=== PATIENT | female | born 1945 | race Caucasian/White ===

== ENCOUNTER 2019-05-21 09:57 | Inpatient (IN) | payer MEDICAID, MEDICARE ==
[~2019-05-21] VITALS: Ht 162.6 cm; Wt 116.2 kg
[2019-05-21] VITALS (12 sets, daily range): BP systolic 142–178; BP diastolic 82–107
[~2019-05-21 09:57] MED LIST: AMLO10TA8 PO; Albuterol Sulfate NEB; CLON0.2T PO; CLON1TAB PO; CLON1TAB11 PO; DIGO125T79 PO; DILT300C23 PO; DULO20CA PO; DULO60CA6 PO; ERGO500027 PO; FLUT16SP NS; FURO-69 PO; FURO40TA4 PO; GLIM2TAB2 PO; Ipratropium/Albuterol Sulfate NEB; LISI-130 PO; METF10007 PO; METF500T16 PO; PRED-220 PO; SIMV20TA3 PO; SIMV40TA3 PO; WARF-31 PO; [UNRECOGNIZED DRUG - REMARK]; lisinopril
[2019-05-21] MEDS ORDERED: dilTIAZem IV PUSH 25 MG/5 ML VIAL IVP ONE (11:00)
[2019-05-21] MEDS ORDERED: FUROSEMIDE 100 MG/10 ML VIAL. IVP ONE (11:30)
[2019-05-21] MEDS ORDERED: CARV25TA PO (11:44)
[2019-05-21] MEDS ORDERED: BUPR150T8 PO (11:44)
[2019-05-21] MEDS ORDERED: INSU100C4 SQ (11:44)
[2019-05-21] MEDS ORDERED: ASPI-612 PO (11:44)
[2019-05-21 11:52] LABS: BASO # 0.1 x10^3/uL (0.0-0.2); BASO % 1 % (0-3); EOS # 0.1 x10^3/uL (0.0-0.7); EOS % 1 % (0-3); HEMATOCRIT 42.8 % (36.0-47.0); HEMOGLOBIN 14.4 g/dL (12.0-15.5); LYMPH # 1.2 x10^3/uL (1.0-4.8); LYMPH % 15 % (24-48); MEAN CORPUSCULAR HEMOGLOBIN 28 pg (25-35); MEAN CORPUSCULAR HGB CONC 34 g/dL (31-37); MEAN CORPUSCULAR VOLUME 82 fL (79-100); MONO # 0.6 x10^3/uL (0.0-1.1); MONO % 7 % (0-9); NEUT % 75 % (31-73); PLATELET COUNT 250 x10^3/uL (140-400); RED CELL DISTRIBUTION WIDTH 15.9 % (11.5-14.5)
--- NOTE | 2019-05-21 11:52 | RAD ---
EXAM: Chest, single view. HISTORY: Chest pain. COMPARISON: None. FINDINGS: A frontal view of the chest is obtained. There is no infiltrate, pleural effusion or pneumothorax. There is a prominent cardiac silhouette, a component of which is due to portable technique. IMPRESSION: No acute pulmonary finding. Electronically signed by: Jenn Bhandari MD (05/21/2019 11:49 AM) [facility]
[2019-05-21 11:57] LABS: CALCIUM 9.1 mg/dL (8.5-10.1); CREATININE 1.3 mg/dL (0.6-1.0); GFR 40.2; POTASSIUM 4.8 mmol/L (3.5-5.1)
[2019-05-21] MEDS: dilTIAZem INJ 125 MG in IV DEXTROSE 5% 100ML 100 ML IV PRN ×2 (11:58→22:37)
[2019-05-21] MEDS ORDERED: ALBUTEROL SULFATE 2.5 MG/3 ML NEBU. NEB PRN (12:00)
[2019-05-21 12:03] LABS: ALBUMIN 3.4 g/dL (3.4-5.0); ALBUMIN/GLOBULIN RATIO 0.9 (1.0-1.7); TOTAL BILIRUBIN 0.9 mg/dL (0.2-1.0)
[2019-05-21 12:09] LABS: DIG < 0.2 ng/mL (0.9-2.0)
[2019-05-21] MEDS: IPRATRPIUM/ALBUTEROL 0.5/2.5MG 3 ML NEBU. NEB SCH ×3 (12:12→19:33)
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
[2019-05-21 12:35] LABS: PROTHROMBIN TIME PATIENT 14.4 SEC (11.7-14.0)
[2019-05-21 12:44] LABS: MAGNESIUM 1.5 mg/dL (1.8-2.4)
[2019-05-21 12:45] LABS: CHOLESTEROL/HDL RATIO 5.9
[2019-05-21] MEDS ORDERED: HEPARIN for IV BOLUS 10,000 UNIT/10 ML VIAL. IV PRN (13:00)
[2019-05-21] MEDS ORDERED: DEXTROSE 50% 25 GM / 50ML DISP.SYRIN. IV PRN (13:00)
[2019-05-21] MEDS ORDERED: APIXABAN 5 MG TABLET. PO SCH (13:00)
[2019-05-21] MEDS ORDERED: IV DEXTROSE 5% 250 ML BAG. IV PRN (13:00)
[2019-05-21] MEDS: INSULIN LISPRO 300 UNITS/3 ML INSULN.PEN. SQ SCH ×4 (13:47→18:19)
[2019-05-21] MEDS: HEPARIN 25,000UTS/500ML PREMIX 500 ML IV PRN (13:51)
[2019-05-21] MEDS ORDERED: MAGNESIUM SULFATE 2GM 50 ML IV ONE (15:00)
[2019-05-21] MEDS ORDERED: WARFARIN 5 MG TABLET. PO SCH (16:00)
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
[2019-05-21] MEDS: metFORMIN 500 MG TABLET PO SCH (18:16)
[2019-05-21] MEDS: CARVEDILOL 12.5 MG TABLET. PO SCH (18:16)
[2019-05-21] MEDS ORDERED: DIGOXIN 125 MCG TABLET. PO SCH (18:30)
[2019-05-21] MEDS ORDERED: NON FORMULARY ITEM ([Ipratropium/Albuterol Sulfate] 3 ML) NEB SCH (20:00)
[2019-05-21] MEDS: ATORVASTATIN CALCIUM 20 MG TABLET PO SCH (20:58)
[2019-05-21] MEDS: cloNIDine HCL 0.2 MG TABLET PO SCH (20:59)
[2019-05-21] MEDS: INSULIN GLARGINE 300 UNITS/3 ML INSULN.PEN. SQ SCH (21:03)
[2019-05-21] MEDS: HEPARIN for IV BOLUS 10,000 UNIT/10 ML VIAL. IV PRN (22:34)
[2019-05-22] VITALS (16 sets, daily range): BP systolic 104–166; BP diastolic 59–102
[2019-05-22 00:08] LABS: HEMOGLOBIN A1C 9.8 % (4.8-5.6)
[2019-05-22] MEDS: IPRATRPIUM/ALBUTEROL 0.5/2.5MG 3 ML NEBU. NEB SCH ×4 (07:30→20:15)
[2019-05-22] MEDS: INSULIN LISPRO 300 UNITS/3 ML INSULN.PEN. SQ SCH ×6 (08:00→17:00)
--- NOTE | 2019-05-22 08:29 | CARD ---
MR#: [id number] Date of Study: 05/21/2019 Ordering Physician: IVETTE COREA, Referring Physician: Nicole LONDON: Eileen Mehta APPROVED REPORT EXAM: Two-dimensional and M-mode echocardiogram with Doppler and color Doppler. Other Information Quality : FairHR: 102bpm INDICATION Atrial Fibrillation RISK FACTORS Hypertension Hyperlipidemia Diabetes 2D DIMENSIONS RVDd3.0 (2.9-3.5cm)Left Atrium(2D)4.1 (1.6-4.0cm) IVSd1.4 (0.7-1.1cm)Aortic Root(2D)3.4 (2.0-3.7cm) LVDd5.4 (3.9-5.9cm)LVOT Diameter1.8 (1.8-2.4cm) PWd1.4 (0.7-1.1cm)LVDs3.2 (2.5-4.0cm) FS (%) 40.0 %SV97.5 ml LVEF(%)70.1 (>50%) Aortic Valve AoV Peak Gary.157.7cm/sAoV VTI17.3cm AO Peak GR.9.9mmHgLVOT VTI 14.05cm AO Mean GR.4mmHgAI P 1/2 [id number] TDI Lateral E' P. V9.46cm/sMedial E' P. V8.50cm/s Tricuspid Valve TR P. Flvmzazv656dp/sRAP [id number] TR Peak Gr.98lyEgLBUH36lqXn Pulmonary Vein S1 Porkybla69.3cm/sS2 Embhqltr48.63cm/s D2 Twtenfqe87.6cm/sPVa [id number] LEFT VENTRICLE The left ventricle is normal size. There is moderate concentric left ventricular hypertrophy. The lef t ventricular systolic function is normal. The Ejection Fraction is 55-60%. There is normal LV segmen elizabeth wall motion. Diastology indeterminate due to atrial fibrillation. RIGHT VENTRICLE The right ventricle is normal size. There is normal right ventricular wall thickness. The right ventr icular systolic function is normal. ATRIA The left atrium is mildly dilated. The right atrium is borderline dilated. The interatrial septum is intact with no evidence for an atrial septal defect or patent foramen ovale as noted on 2-D or Dopple r imaging. AORTIC VALVE The aortic valve is normal in structure and function. Doppler and Color Flow revealed trace aortic re gurgitation. There is no significant aortic valvular stenosis. MITRAL VALVE The mitral valve is normal in structure and function. There is no evidence of mitral valve prolapse. There is no mitral valve stenosis. Doppler and Color-flow revealed trace mitral regurgitation. TRICUSPID VALVE The tricuspid valve is normal in structure and function. Doppler and Color Flow revealed trace tricus pid regurgitation with an estimated PAP of 37 mmHg. There is no tricuspid valve stenosis. PULMONIC VALVE The pulmonic valve is not well visualized. Doppler and Color Flow revealed no pulmonic valvular regur gitation. GREAT VESSELS The aortic root is normal in size. The IVC is normal in size and collapses >50% with inspiration. PERICARDIAL EFFUSION There is no evidence of significant pericardial effusion. Critical Notification Critical Value: No <Conclusion> The left ventricular systolic function is normal. The Ejection Fraction is 55-60%. There is normal LV segmental wall motion. Trace mitral regurgitation. Trace tricuspid regurgitation with an estimated PAP of 37 mmHg. There is no evidence of significant pericardial effusion. Signed by : Dominick Biggs, Electronically Approved : 05/22/2019 08:29:31
[2019-05-22] MEDS: cloNIDine HCL 0.2 MG TABLET PO SCH (09:00)
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
[2019-05-22] MEDS: dilTIAZem INJ 125 MG in IV DEXTROSE 5% 100ML 100 ML IV PRN (10:18)
[2019-05-22] MEDS: HEPARIN 25,000UTS/500ML PREMIX 500 ML IV PRN (10:19)
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
[2019-05-22 11:49] LABS: PROTHROMBIN TIME PATIENT 15.1 SEC (11.7-14.0)
[2019-05-22 11:50] LABS: UNFRACTIONATED HEPARIN TESTING 0.36 IU/mL (0.30-0.70)
[2019-05-22] MEDS: FUROSEMIDE 40 MG TABLET. PO SCH (11:51)
[2019-05-22] MEDS: CARVEDILOL 12.5 MG TABLET. PO SCH (11:52)
[2019-05-22] MEDS: metFORMIN 500 MG TABLET PO SCH ×2 (11:52→18:05)
[2019-05-22] MEDS: ASPIRIN ENTERIC COATED 81 MG TABLET.DR. PO SCH (11:52)
[2019-05-22] MEDS: buPROPion SR 150 MG TABLET.SA PO SCH (11:52)
[2019-05-22] MEDS: FLUTICASONE 50MCG/NASAL SPRAY 16GM BOTTLE. NS SCH (11:53)
--- NOTE | 2019-05-22 13:38 | PDOC ---
PROGRESS NOTES Subjective She denies chest pain, tolerating medication changes, HR now controlled, on Heparin IV as INR subtherapeutic Objective Afebrile General: A&O Heart: afib per monitor, rate 60s Lungs: diminished but CTA Abd: obese, soft, normal bowel sounds Ext: no C/C/E Mg++ low INR 1.2 Vital Signs Vital Signs Date Time Temp Pulse Resp B/P (MAP) Pulse Ox O2 Delivery O2 Flow Rate FiO2 05/22/19 11:53 90 133/82 05/22/19 11:30 97 Room Air 05/22/19 11:00 98.4 16 98.4 I & O Intake and Output 05/22/19 06:59 Intake Total 600 ml Output Total 950 ml Balance -350 ml Intake Oral 600 ml Output Urine Total 950 ml Assessment and Plan Afib/RVR - admit for rate control, no CHFor ACS - cardiology consulted, resume warfarin, bridge with Heparin uncontrolled type 2 DM - out of meds - resume plus SSI Asthma/COPD, no evidence of acute exacerbation non compliance due to social issues - SS to see, needs assisted living hypomagnesemia - replace Evelin RUIZ MD May 22, 2019 13:38
[2019-05-22] MEDS ORDERED: MAGNESIUM SULFATE 2GM 50 ML IV ONE (14:00)
[2019-05-22] MEDS ORDERED: WARFARIN 5 MG TABLET. PO SCH (16:00)
[2019-05-22] MEDS: METOPROLOL TART IMMED RELEASE 50 MG TABLET. PO SCH (21:03)
[2019-05-22] MEDS: ATORVASTATIN CALCIUM 20 MG TABLET PO SCH (21:04)
[2019-05-22] MEDS: INSULIN GLARGINE 300 UNITS/3 ML INSULN.PEN. SQ SCH (21:08)
[2019-05-23 03:35] VITALS: BP 127/85
[2019-05-23 06:24] LABS: PROTHROMBIN TIME PATIENT 15.2 SEC (11.7-14.0)
[2019-05-23 06:25] LABS: UNFRACTIONATED HEPARIN TESTING 0.18 IU/mL (0.30-0.70)
[2019-05-23 07:00] VITALS: BP 118/74
[2019-05-23] MEDS: HEPARIN for IV BOLUS 10,000 UNIT/10 ML VIAL. IV PRN (07:18)
[2019-05-23] MEDS: INSULIN LISPRO 300 UNITS/3 ML INSULN.PEN. SQ SCH ×6 (08:00→17:00)
[2019-05-23] MEDS: IPRATRPIUM/ALBUTEROL 0.5/2.5MG 3 ML NEBU. NEB SCH ×4 (08:07→19:34)
--- NOTE | 2019-05-23 08:16 | PDOC ---
PROGRESS NOTES Subjective No chest pain, room was too cold to sleep well last night and now she feels hot, INR 1.2 on warfarin 10 mg and heparin drip Objective Afebrile General: doing breathing tx Heart: Rate controlled, afib on monitor Lungs: CTA Abd: obese, soft Ext: no cyanosis Vital Signs Vital Signs Date Time Temp Pulse Resp B/P (MAP) Pulse Ox O2 Delivery O2 Flow Rate FiO2 05/23/19 08:08 98 Room Air 05/23/19 07:00 97.9 89 20 118/74 (89) 97.9 I & O Intake and Output0 05/23/19 06:59 Intake Total 300 ml Output Total 1400 ml Balance -1100 ml Intake Oral 300 ml Output Urine Total 1400 ml # Voids 1 Assessment and Plan Problems Medical Problems: (1) Atrial fibrillation with rapid ventricular response Status: Acute (2) Chronic systolic CHF (congestive heart failure) Status: Chronic (3) HLD (hyperlipidemia) Status: Chronic (4) Hypomagnesemia Status: Acute (5) Uncontrolled diabetes mellitus Status: Chronic Afib/RVR - rate controlled on current meds, no CHFor ACS - cardiology consulted, resumed warfarin, bridging with Heparin until therapeutic uncontrolled type 2 DM - out of meds - resume plus SSI Asthma/COPD, no evidence of acute exacerbation non compliance due to social issues - SS to see, needs assisted living hypomagnesemia - replace Evelin RUIZ MD May 23, 2019 08:16
[2019-05-23] MEDS: HEPARIN 25,000UTS/500ML PREMIX 500 ML IV PRN (08:19)
[2019-05-23] MEDS: ASPIRIN ENTERIC COATED 81 MG TABLET.DR. PO SCH (08:35)
[2019-05-23] MEDS: buPROPion SR 150 MG TABLET.SA PO SCH (08:35)
[2019-05-23] MEDS: metFORMIN 500 MG TABLET PO SCH ×2 (08:36→17:21)
[2019-05-23] MEDS: LISINOPRIL 10 MG TABLET PO SCH (08:36)
[2019-05-23] MEDS: METOPROLOL TART IMMED RELEASE 50 MG TABLET. PO SCH ×2 (08:36→21:32)
[2019-05-23] MEDS: FUROSEMIDE 40 MG TABLET. PO SCH (08:38)
[2019-05-23] MEDS: FLUTICASONE 50MCG/NASAL SPRAY 16GM BOTTLE. NS SCH (08:38)
[2019-05-23] MEDS: ACETAMINOPHEN 325 MG TABLET. PO PRN (10:13)
[2019-05-23 10:59] VITALS: BP 102/72
--- NOTE | 2019-05-23 11:38 | NUR ---
SS following up with discharge planning. PT/OT recommended residential unit. SS met with pt and discussed residential unit and discharge planning. Pt agreeable to residential unit at requested [facility], ; fax [phone]. Pt reported that her family did received SS list of Medicaid Assisted Livings and are contacting. SS phoned and faxed referral to [facility]. SS will await acceptance decision and will proceed accordingly.
--- NOTE | 2019-05-23 14:49 | NUR ---
SS following up with discharge planning. SS received phone contact from pt's daughters stating that they were at [facility] and reported that they did not want pt to go to [facility] at discharge. Pt's daughters reported that pt will go to [place], ; fax [phone], at discharge and will then transition to assisted living. SS phoned and faxed referral to [facility] per family request. Pt's RN notified.
[2019-05-23 15:00] VITALS: BP 114/86
[2019-05-23] MEDS ORDERED: WARFARIN 4 MG TABLET. PO SCH (16:00)
[2019-05-23 19:55] VITALS: BP 114/79
[2019-05-23] MEDS: ATORVASTATIN CALCIUM 20 MG TABLET PO SCH (21:32)
[2019-05-23] MEDS: INSULIN GLARGINE 300 UNITS/3 ML INSULN.PEN. SQ SCH (21:35)
[2019-05-23 23:06] VITALS: BP 106/62
[2019-05-24 02:06] VITALS: BP 133/71
[2019-05-24] MEDS: HEPARIN 25,000UTS/500ML PREMIX 500 ML IV PRN ×2 (04:36→04:41)
[2019-05-24 07:00] VITALS: BP 120/57
[2019-05-24 07:09] LABS: PROTHROMBIN TIME PATIENT 19.6 SEC (11.7-14.0)
[2019-05-24] MEDS: INSULIN LISPRO 300 UNITS/3 ML INSULN.PEN. SQ SCH ×6 (07:44→17:24)
[2019-05-24] MEDS: IPRATRPIUM/ALBUTEROL 0.5/2.5MG 3 ML NEBU. NEB SCH ×4 (07:56→19:40)
[2019-05-24] MEDS: LISINOPRIL 10 MG TABLET PO SCH (08:24)
[2019-05-24] MEDS: metFORMIN 500 MG TABLET PO SCH ×2 (08:24→16:59)
[2019-05-24] MEDS: ASPIRIN ENTERIC COATED 81 MG TABLET.DR. PO SCH (08:24)
[2019-05-24] MEDS: buPROPion SR 150 MG TABLET.SA PO SCH (08:24)
[2019-05-24] MEDS: METOPROLOL TART IMMED RELEASE 50 MG TABLET. PO SCH ×2 (08:25→20:57)
[2019-05-24] MEDS: FUROSEMIDE 40 MG TABLET. PO SCH (08:25)
[2019-05-24] MEDS: FLUTICASONE 50MCG/NASAL SPRAY 16GM BOTTLE. NS SCH (08:25)
[2019-05-24 11:00] VITALS: BP 131/80
[2019-05-24] MEDS ORDERED: ACET325T9 PO (11:52)
[2019-05-24] MEDS ORDERED: WARF3TAB54 PO (11:52)
[2019-05-24] MEDS ORDERED: ATOR20TA58 PO (11:52)
[2019-05-24] MEDS ORDERED: LISI10TA2 PO (11:52)
[2019-05-24] MEDS ORDERED: METO50TA6 PO (11:52)
--- NOTE | 2019-05-24 11:55 | SNU/HH DC ---
DISCHARGE ORDERS DISCHARGE INFORMATION: DISCHARGE DATE: May 24, 2019 FINAL DIAGNOSIS Problems Medical Problems: (1) Atrial fibrillation with rapid ventricular response Status: Acute (2) Chronic systolic CHF (congestive heart failure) Status: Chronic (3) HLD (hyperlipidemia) Status: Chronic (4) Hypomagnesemia Status: Acute (5) Uncontrolled diabetes mellitus Status: Chronic CONDITION ON DISCHARGE: Stable CODE STATUS: Code Status: Full SENIOR LIVING: SNF STAY <30 DAYS: Yes POST DISCHARGE ORDERS: ACTIVITY ORDERS: Activity as tolerated WEIGHT BEARING STATUS: No restrictions DIET AFTER DISCHARGE: ADA CHECKS AFTER DISCHARGE: CHECKS AFTER DISCHARGE: Check blood press - daily, Check blood sugar, ac/hs, Check your Temp as needed, Weigh Yourself Daily FOLLOW-UP: PHYSICIAN FOLLOW-UP: 2 weeks TREATMENT/EQUIPMENT ORDERS: RESPIRATORY EQUIPMENT NEEDED: Nebulizer Physical Therapy For: Evalulation/Treatment Occupational Therapy For: Evaluation/Treatment DISCHARGE MEDICATIONS: Home Meds Active Scripts Atorvastatin Calcium (ATORVASTATIN CALCIUM) 20 Mg Tablet, 20 MG PO QHS for cholesterol for 30 Days, #30 TAB Prov:Evelin RUIZ MD 05/24/19 Metoprolol Tartrate (METOPROLOL TARTRATE) 50 Mg Tablet, 50 MG PO BID for heart rate for 30 Days, #60 TAB Prov:Evelin RUIZ MD 05/24/19 Lisinopril (LISINOPRIL) 10 Mg Tablet, 10 MG PO DAILY for heart/bp/kidneys for 30 Days, #30 TAB Prov:Evelin RUIZ MD 05/24/19 Acetaminophen (TYLENOL) 325 Mg Tablet, 650 MG PO PRN Q6HRS PRN for PAIN for 30 Days, #100 TAB Prov:Evelin RUIZ MD 05/24/19 Warfarin Sodium (COUMADIN) 3 Mg Tablet, 6 MG PO DAILY16 for afib for 30 Days, #60 TAB Prov:Evelin RUIZ MD 05/24/19 Diltiazem Hcl (DILTIAZEM 24HR CD) 300 Mg Cap.er.24h, 300 MG PO DAILY for 30 Days Prov:LINDA RG MD 10/13/15 Digoxin (LANOXIN) 125 Mcg Tablet, 125 MCG PO DAILY for 30 Days Prov:LINDA RG MD 10/13/15 [Albuterol Sulfate] 2.5 MG/3 ML NEBU No Conflict Check, 2.5 MG NEB PRN Q4HRS PRN for SHORTNESS OF BREATH Prov:Evelin RUIZ MD 06/25/15 [Ipratropium/Albuterol Sulfate] 3 ML NEBU No Conflict Check, 3 ML NEB RTQID Prov:Evelin RUIZ MD 06/25/15 Reported Medications Bupropion Hcl (WELLBUTRIN SR) 150 Mg Tablet.er, 150 MG PO DAILY for antidepresant, TAB.SR 05/21/19 Insulin Aspart (NOVOLOG) 100 Unit/1 Ml Cartridge, 15 UNIT SQ TID for glucose control, EACH 05/21/19 Aspirin (ASPIRIN EC) 81 Mg Tablet.dr, 1 TAB PO DAILY for circulations, #30 TAB 3 Refills 05/21/19 Fluticasone Propionate (FLUTICASONE PROPIONATE NASAL SPRAY) 16 Gm [place].susp, 2 SPRAY NS DAILY, #1 INHALER 11 Refills LAST DOSE GIVEN: DATE: 10-13-15 TIME: 9 am NEXT DOSE DUE: DATE: 10-14-15 TIME: 9 am 06/23/15 Furosemide (FUROSEMIDE) 40 Mg Tablet, 1 TAB PO DAILY, #30 TAB 5 Refills LAST DOSE GIVEN: DATE: 10-13-15 TIME: 9 am NEXT DOSE DUE: DATE: 10-14-15 TIME: 9 am 06/23/15 Ergocalciferol (Vitamin D2) (VITAMIN D2) 50,000 Unit Capsule, 1 CAP PO WEEKLY, #4 CAP 5 Refills 06/23/15 Metformin Hcl (METFORMIN HCL) 1,000 Mg Tablet, 1 TAB PO BID PRN for BLADDER SPASM, #60 TAB 5 Refills LAST DOSE GIVEN: DATE: 10-13-15 TIME: 9 am NEXT DOSE DUE: DATE: 10-14-15 TIME: 9 am 06/23/15 Discontinued Reported Medications Carvedilol (COREG) 25 Mg Tablet, 25 MG PO BIDWMEALS for CARDIAC, TAB 05/21/19 Clonidine Hcl (CLONIDINE HCL) 0.2 Mg Tablet, 1 TAB PO BID, #180 TAB 3 Refills LAST DOSE GIVEN: DATE: 10-13-15 TIME: 9 am NEXT DOSE DUE: DATE: TIME: 5 pm 06/23/15 Amlodipine Besylate (AMLODIPINE BESYLATE) 10 Mg Tablet, 10 MG PO DAILY, TAB 10/13/15 Duloxetine Hcl (CYMBALTA) 60 Mg Capsule.dr, 1 CAP PO DAILY, #90 CAP 3 Refills LAST DOSE GIVEN: DATE: 10-13-15 TIME: 9 am NEXT DOSE DUE: DATE: 10-14-15 TIME: 9 am 06/23/15 Simvastatin (SIMVASTATIN) 40 Mg Tablet, 40 MG PO DAILY for FOR CHOLESTEROL, #30 TAB 0 Refills LAST DOSE GIVEN: DATE: 10-12-15 TIME: 9 pm NEXT DOSE DUE: DATE: 10-13-15 TIME: 9 pm 06/23/15 Lisinopril (LISINOPRIL) 40 Mg Tablet, 1 TAB PO DAILY, #30 TAB 5 Refills LAST DOSE GIVEN: DATE: 10-13-15 TIME: 9 am NEXT DOSE DUE: DATE: 10-14-15 TIME: 9 am 06/23/15 Glimepiride (GLIMEPIRIDE) 2 Mg Tablet, 1 TAB PO DAILY, #30 TAB 5 Refills LAST DOSE GIVEN: DATE: 10-13-15 TIME: 9 am NEXT DOSE DUE: DATE: 10-14-15 TIME: 9 am 06/23/15 Discontinued Scripts Warfarin Sodium (WARFARIN SODIUM) 5 Mg Tablet, 1 TAB PO DAILY, #90 TAB 1 Refill Prov:LINDA RG MD 10/13/15 Evelin RUIZ MD May 24, 2019 11:55
--- NOTE | 2019-05-24 12:23 | NUR ---
SS following up with discharge planning. Augustina contacted SS and reported that pt could not be accepted because her Medicare Part A was not active. SS confirmed with case management and registration. SS contacted pt's daughter, Jeannie, , and discussed. Pt's daughter Jeannie requested that referrals be phoned and faxed to [facility], ; fax [phone], and [facility], ; fax [phone]. SS will await acceptance decision and insurance determination and will proceed accordingly with discharge planning.
[2019-05-24 15:00] VITALS: BP 133/81
--- NOTE | 2019-05-24 15:36 | NUR ---
SS following up with discharge planning. Pt accepted at [facility], ; fax [phone], pending insurance determination. SS will await insurance determination and will proceed accordingly. Pt's RN notified.
--- NOTE | 2019-05-24 16:38 | PDOC ---
PROGRESS NOTES Subjective therapy recommending SNU, waiting for placement, cardiac-wis she is stable on current meds, getting neb tx, sugars generally ok, starting to ambulate more, breathing improving, INR therapeutic enough to stop Heparin Objective Afebrile General: mildly dyspneic at rest Heart: irreg, rate normal Lungs: diminished, less coarse Abd: obese, soft Ext: no cyonosis Vital Signs Vital Signs Date Time Temp Pulse Resp B/P (MAP) Pulse Ox O2 Delivery O2 Flow Rate FiO2 05/24/19 15:51 Room Air 05/24/19 15:00 97.9 78 20 133/81 (98) 95 97.9 I & O Intake and Output 05/24/19 06:59 Intake Total 740 ml Output Total 2000 ml Balance -1260 ml Intake Oral 240 ml IV Total 500 ml Output Urine Total 2000 ml Assessment and Plan Afib/RVR - rate controlled on current meds, no CHFor ACS - cardiology consulted, resumed warfarin, therapeutic enough to stop Heparin uncontrolled type 2 DM - out of meds - resume plus SSI Asthma/COPD, no evidence of acute exacerbation, stable with meds non compliance due to social issues - SS to see, needs assisted living hypomagnesemia - replace debility from poorly treated chronic illness - SNU then Assisted living, continue therapy (1) Atrial fibrillation with rapid ventricular response Status: Acute (2) Chronic systolic CHF (congestive heart failure) Status: Chronic (3) HLD (hyperlipidemia) Status: Chronic (4) Hypomagnesemia Status: Acute (5) Uncontrolled diabetes mellitus Status: Chronic Evelin RUIZ MD May 24, 2019 16:38
[2019-05-24] MEDS: WARFARIN 3 MG TABLET. PO SCH (16:59)
[2019-05-24 19:05] VITALS: BP 148/87
[2019-05-24] MEDS: INSULIN GLARGINE 300 UNITS/3 ML INSULN.PEN. SQ SCH (20:57)
[2019-05-24] MEDS: ATORVASTATIN CALCIUM 20 MG TABLET PO SCH (20:57)
[2019-05-24] MEDS ORDERED: ONDANSETRON PF 4 MG/2 ML VIAL. IV PRN (22:00)
[2019-05-24 23:49] VITALS: BP 148/87
[2019-05-25 03:45] VITALS: BP 125/77
[2019-05-25 04:42] LABS: PROTHROMBIN TIME PATIENT 22.4 SEC (11.7-14.0)
[2019-05-25 04:50] LABS: ANION GAP 7 (6-14); BLOOD UREA NITROGEN 15 mg/dL (7-20); CALCIUM 8.8 mg/dL (8.5-10.1); CARBON DIOXIDE 30 mmol/L (21-32); CHLORIDE 103 mmol/L (98-107); CREATININE 1.2 mg/dL (0.6-1.0); GLUCOSE 119 mg/dL (70-99); POTASSIUM 3.9 mmol/L (3.5-5.1); SODIUM 140 mmol/L (136-145)
[2019-05-25 04:51] LABS: DIG < 0.2 ng/mL (0.9-2.0)
[2019-05-25 07:00] VITALS: BP 107/65
[2019-05-25] MEDS: IPRATRPIUM/ALBUTEROL 0.5/2.5MG 3 ML NEBU. NEB SCH ×4 (07:19→20:14)
[2019-05-25] MEDS: INSULIN LISPRO 300 UNITS/3 ML INSULN.PEN. SQ SCH ×6 (08:00→17:23)
[2019-05-25] MEDS: metFORMIN 500 MG TABLET PO SCH ×2 (08:38→16:45)
[2019-05-25] MEDS: METOPROLOL TART IMMED RELEASE 50 MG TABLET. PO SCH ×2 (08:39→20:50)
[2019-05-25] MEDS: ASPIRIN ENTERIC COATED 81 MG TABLET.DR. PO SCH (08:39)
[2019-05-25] MEDS: LISINOPRIL 10 MG TABLET PO SCH (08:39)
[2019-05-25] MEDS: buPROPion SR 150 MG TABLET.SA PO SCH (08:39)
[2019-05-25] MEDS: FUROSEMIDE 40 MG TABLET. PO SCH (08:40)
[2019-05-25] MEDS: FLUTICASONE 50MCG/NASAL SPRAY 16GM BOTTLE. NS SCH (09:00)
--- NOTE | 2019-05-25 09:03 | PDOC ---
SUBJECTIVE Subjective Pt doing well this morning. Waiting for SNF placement. OBJECTIVE Vital Signs Vital Signs Date Time Temp Pulse Resp B/P (MAP) Pulse Ox O2 Delivery O2 Flow Rate FiO2 05/25/19 08:40 75 107/65 05/25/19 08:40 75 107/65 05/25/19 07:20 93 Room Air 05/25/19 07:00 97.6 75 20 107/65 (79) 93 Room Air 97.6 05/25/19 03:45 97.9 79 20 125/77 (93) 95 Room Air 97.9 05/24/19 23:49 98.4 91 20 148/87 (107) 97 Room Air 98.4 05/24/19 20:58 81 148/87 05/24/19 20:00 Room Air 05/24/19 19:40 Room Air 05/24/19 19:05 98.0 81 20 148/87 (107) 95 Room Air 98.0 05/24/19 15:51 Room Air 05/24/19 15:00 97.9 78 20 133/81 (98) 95 Room Air 97.9 05/24/19 11:58 99 Room Air 05/24/19 11:00 98.0 78 20 131/80 (97) 97 Room Air 98.0 I & O Intake and Output 05/25/19 07:00 Intake Total 600 ml Output Total 1700 ml Balance -1100 ml Intake Oral 250 ml IV Total 350 ml Output Urine Total 1650 ml Emesis 50 ml PHYSICAL EXAM Physical Exam General: NAD, AOx3 HEENT: MMM, EOMI, no scleral icterus/injection Heart: RRR, no M/R/G Lungs: CTAB, regular breathing rate and effort Abd: obese, soft Ext: no cyonosis, on erythema/edema LE bilaterally Neuro: CN2-12 GI ASSESSMENT/PLAN Assessment/Plan Pt is a 74yo CF admitted for afib with RVR 1)Afib/RVR - Cardiology following. Pt currently sinus and regular rate. Cardiology following. Pt currently therapeutic on Warfarin. Awaiting SNF placement 2)uncontrolled type 2 DM - pt was out of meds, well controlled now with Metformi n 1000mg BID, Lispro 15U QAC and SSI 3)Asthma/COPD, no evidence of acute exacerbation, stable with meds 4)non compliance due to social issues - SS to see, needs assisted living 5)hypomagnesemia - replaced 6)debility from poorly treated chronic illness - SNU then Assisted living, continue therapy COMMENT Lab Laboratory Tests Test 05/24/19 11:45 05/24/19 16:46 05/24/19 20:44 05/25/19 04:00 Glucose (Fingerstick) 98 mg/dL (70-99) 107 mg/dL (70-99) 94 mg/dL (70-99) Prothrombin Time 22.4 SEC (11.7-14.0) Prothromb Time International Ratio 2.0 (0.8-1.1) Sodium Level 140 mmol/L (136-145) Potassium Level 3.9 mmol/L (3.5-5.1) Chloride Level 103 mmol/L (98-107) Carbon Dioxide Level 30 mmol/L (21-32) Anion Gap 7 (6-14) Blood Urea Nitrogen 15 mg/dL (7-20) Creatinine 1.2 mg/dL (0.6-1.0) Estimated GFR (Cockcroft-Gault) 44.0 Glucose Level 119 mg/dL (70-99) Calcium Level 8.8 mg/dL (8.5-10.1) Digoxin Level < 0.2 ng/mL (0.9-2.0) Digoxin Last Dose Date Digoxin Last Dose Time 0900 Test 05/25/19 07:20 Glucose (Fingerstick) 120 mg/dL (70-99) LINDA ORTIZ MD May 25, 2019 09:03
--- NOTE | 2019-05-25 10:10 | NUR ---
Pharmacy Warfarin Dosing Note S: Pharmacy consulted to assist with anticoagulation therapy O: MICHAELA COOPER is a 74 year old F with Atrial Fibrillation LABS: Last INR: 2.0 Last HGB: 14.4 Last HCT: 42.8 Last PLT: 250 Last dose of 6 mg given on 05/24/19 at 1659 Vitamin K given: N Ongoing Drug Interactions: ASA A:INR of 2.0 is within desired range. Target range for this patient is: 2 - 3 P: Warfarin dose: 6 mg Today at 1600 Bridge Therapy: Heparin drip D/C Next INR due 05/26/19 Pharmacy anticoagulation service will continue to follow. ALYSSA KIRKPATRICK [facility], 05/25/19 1010
[2019-05-25 11:05] VITALS: BP 135/71
[2019-05-25 15:00] VITALS: BP 81/66
[2019-05-25] MEDS: WARFARIN 3 MG TABLET. PO SCH (16:45)
[2019-05-25 19:05] VITALS: BP 132/89
[2019-05-25] MEDS: ATORVASTATIN CALCIUM 20 MG TABLET PO SCH (20:50)
[2019-05-25] MEDS: INSULIN GLARGINE 300 UNITS/3 ML INSULN.PEN. SQ SCH (22:02)
[2019-05-25 23:27] VITALS: BP 153/76
[2019-05-26 03:10] VITALS: BP 129/59
[2019-05-26 04:42] LABS: PROTHROMBIN TIME PATIENT 25.5 SEC (11.7-14.0)
[2019-05-26] MEDS: IPRATRPIUM/ALBUTEROL 0.5/2.5MG 3 ML NEBU. NEB SCH ×4 (06:58→19:49)
[2019-05-26 07:44] VITALS: BP 123/76
[2019-05-26] MEDS: INSULIN LISPRO 300 UNITS/3 ML INSULN.PEN. SQ SCH ×6 (08:00→17:00)
[2019-05-26] MEDS: LISINOPRIL 10 MG TABLET PO SCH (08:53)
[2019-05-26] MEDS: FUROSEMIDE 40 MG TABLET. PO SCH (08:54)
[2019-05-26] MEDS: ASPIRIN ENTERIC COATED 81 MG TABLET.DR. PO SCH (08:54)
[2019-05-26] MEDS: METOPROLOL TART IMMED RELEASE 50 MG TABLET. PO SCH ×2 (08:54→21:01)
[2019-05-26] MEDS: metFORMIN 500 MG TABLET PO SCH ×2 (08:54→17:29)
[2019-05-26] MEDS: buPROPion SR 150 MG TABLET.SA PO SCH (08:54)
[2019-05-26] MEDS: FLUTICASONE 50MCG/NASAL SPRAY 16GM BOTTLE. NS SCH (08:55)
--- NOTE | 2019-05-26 09:38 | NUR ---
Pharmacy Warfarin Dosing Note S: Pharmacy consulted to assist with anticoagulation therapy O: MICHAELA COOPER is a 74 year old F with Atrial Fibrillation LABS: Last INR: 2.3 Last HGB: 14.4 Last HCT: 42.8 Last PLT: 250 Last dose of 6 mg given on 05/25/19 at 1645 Vitamin K given: N Ongoing Drug Interactions: ASA A:INR of 2.3 is within desired range. Target range for this patient is: 2 - 3 P: Warfarin dose: 6 mg Today at 1600 Bridge Therapy: Heparin gtt D/C Next INR due 05/27/19 Pharmacy anticoagulation service will continue to follow. ALYSSA KIRKPATRICK [facility], 05/26/19 [id number]
--- NOTE | 2019-05-26 10:37 | PDOC ---
SUBJECTIVE Subjective Pt doing well this morning. No complaints OBJECTIVE Vital Signs Vital Signs Date Time Temp Pulse Resp B/P (MAP) Pulse Ox O2 Delivery O2 Flow Rate FiO2 05/26/19 08:58 80 123/76 05/26/19 08:58 81 123/76 05/26/19 07:44 97.5 82 18 123/76 (92) 94 Room Air 97.5 05/26/19 07:00 95 Room Air 05/26/19 03:10 98.7 84 18 129/59 (82) 96 Room Air 98.7 05/25/19 23:27 97.7 88 18 153/76 (101) 96 Room Air 97.7 05/25/19 20:50 93 132/89 05/25/19 20:14 Room Air 05/25/19 20:00 Room Air 05/25/19 19:05 98.2 93 17 132/89 (103) 97 Room Air 98.2 05/25/19 16:17 Room Air 05/25/19 15:00 97.4 79 19 81/66 (71) 93 Room Air 97.4 05/25/19 11:51 94 Room Air 05/25/19 11:29 Room Air 05/25/19 11:05 97.9 89 20 135/71 (92) 97 Room Air 97.9 I & O Intake and Output 05/26/19 06:59 Intake Total 560 ml Output Total 2500 ml Balance -1940 ml Intake Oral 560 ml Output Urine Total 2500 ml # Voids 1 PHYSICAL EXAM Physical Exam General: NAD, AOx3 HEENT: MMM, EOMI, no scleral icterus/injection Heart: RRR, no M/R/G Lungs: CTAB, regular breathing rate and effort Abd: obese, soft Ext: no cyonosis, on erythema/edema LE bilaterally Neuro: CN2-12 GI ASSESSMENT/PLAN Assessment/Plan Pt is a 74yo CF admitted for afib with RVR 1)Afib/RVR - Cardiology following. Pt currently sinus and regular rate. Cardiology following. Pt currently therapeutic on Warfarin. Awaiting SNF placement 2)uncontrolled type 2 DM - pt was out of meds, well controlled now with Me tformin 1000mg BID, Lispro 15U QAC and SSI 3)Asthma/COPD, no evidence of acute exacerbation, stable with meds 4)non compliance due to social issues - SS to see, needs assisted living 5)hypomagnesemia - replaced 6)debility from poorly treated chronic illness - SNU then Assisted living, continue therapy COMMENT Lab Laboratory Tests Test 05/25/19 11:43 05/25/19 16:27 05/25/19 21:18 05/26/19 04:00 Glucose (Fingerstick) 200 mg/dL (70-99) 77 mg/dL (70-99) 117 mg/dL (70-99) Prothrombin Time 25.5 SEC (11.7-14.0) Prothromb Time International Ratio 2.3 (0.8-1.1) Test 05/26/19 07:08 Glucose (Fingerstick) 145 mg/dL (70-99) LINDA ORTIZ MD May 26, 2019 10:37
[2019-05-26 11:04] VITALS: BP 145/79
[2019-05-26 14:59] VITALS: BP 142/87
[2019-05-26] MEDS ORDERED: WARFARIN 3 MG TABLET. PO ONE (16:00)
[2019-05-26] MEDS: WARFARIN 3 MG TABLET. PO SCH (17:31)
[2019-05-26 19:41] VITALS: BP 156/92
[2019-05-26] MEDS: ATORVASTATIN CALCIUM 20 MG TABLET PO SCH (21:01)
[2019-05-26] MEDS: INSULIN GLARGINE 300 UNITS/3 ML INSULN.PEN. SQ SCH (21:04)
[2019-05-26] MEDS: ACETAMINOPHEN 325 MG TABLET. PO PRN (21:32)
[2019-05-26 23:37] VITALS: BP 124/67
[2019-05-27 02:23] VITALS: BP 119/64
[2019-05-27 07:00] VITALS: BP 137/69
[2019-05-27] MEDS: IPRATRPIUM/ALBUTEROL 0.5/2.5MG 3 ML NEBU. NEB SCH ×4 (07:17→19:36)
[2019-05-27 07:19] LABS: PROTHROMBIN TIME PATIENT 25.5 SEC (11.7-14.0)
[2019-05-27] MEDS: INSULIN LISPRO 300 UNITS/3 ML INSULN.PEN. SQ SCH ×6 (08:00→17:11)
[2019-05-27] MEDS: ASPIRIN ENTERIC COATED 81 MG TABLET.DR. PO SCH (09:35)
[2019-05-27] MEDS: LISINOPRIL 10 MG TABLET PO SCH (09:36)
[2019-05-27] MEDS: METOPROLOL TART IMMED RELEASE 50 MG TABLET. PO SCH ×2 (09:36→21:29)
[2019-05-27] MEDS: FUROSEMIDE 40 MG TABLET. PO SCH (09:36)
[2019-05-27] MEDS: buPROPion SR 150 MG TABLET.SA PO SCH (09:36)
[2019-05-27] MEDS: FLUTICASONE 50MCG/NASAL SPRAY 16GM BOTTLE. NS SCH (09:36)
[2019-05-27] MEDS: metFORMIN 500 MG TABLET PO SCH ×2 (10:11→16:46)
[2019-05-27 11:00] VITALS: BP 129/76
--- NOTE | 2019-05-27 14:49 | NUR ---
Pharmacy Warfarin Dosing Note S:Pharmacy consulted to assist with anticoagulation therapy started with target INR: 2 -3 O:MICHAELA COOPER is a 74 year old F with Atrial Fibrillation LABS: Last INR: 2.3 Last HGB: 14.4 Last HCT: 42.8 Last PLT: 250 Last dose of 6 mg given on 05/26/19 at 1645 Previous Regimen: 5 mg/day (non-compliant x 1 month) Vitamin K given: N Drug Interaction Changes: Same Interacting Drug Ongoing Drug Interactions: ASA A:INR of 2.3 is within desired range. Target range for this patient is: 2 -3 P: Warfarin dose: 6 mg DAILY (HER HOME DOSE). Bridge Therapy: d/c'd Therapeutic Next INR due TOMORROW Pharmacy anticoagulation service will continue to follow. BRYAN ALICIA [facility], 05/27/19 [id number]
[2019-05-27 15:00] VITALS: BP 137/80
--- NOTE | 2019-05-27 16:03 | NUR ---
SS following up with discharge planning. [facility] Medicaid reviewing referral for [facility] and is conferring with [employer]. Insurance authorization still pending at this time. SS will await insurance determination and will proceed accordingly with discharge planning. Pt and pt's daughter notified.
--- NOTE | 2019-05-27 16:24 | PDOC ---
PROGRESS NOTES Subjective no changes, waiting on placement Objective Afebrile General: A&O Heart: irreg, rate controlled Lungs: clearer Abd: obese, soft Ext: no cyanosis Vital Signs Vital Signs Date Time Temp Pulse Resp B/P (MAP) Pulse Ox O2 Delivery O2 Flow Rate FiO2 05/27/19 15:38 97 Room Air 05/27/19 11:00 97.4 85 18 129/76 (93) 97.4 I & O Intake and Output 05/27/19 06:59 Intake Total 1240 ml Output Total 300 ml Balance 940 ml Intake Oral 1240 ml Output Urine Total 300 ml # Voids 5 Assessment and Plan Problems Medical Problems: (1) Atrial fibrillation with rapid ventricular response Status: Acute (2) Chronic systolic CHF (congestive heart failure) Status: Chronic (3) HLD (hyperlipidemia) Status: Chronic (4) Hypomagnesemia Status: Acute (5) Uncontrolled diabetes mellitus Status: Chronic Afib/RVR - rate controlled on current meds, no CHFor ACS - cardiology consulted, resumed warfarin, therapeutic enough to stop Heparin uncontrolled type 2 DM - out of meds - resume plus SSI Asthma/COPD, no evidence of acute exacerbation, stable with meds non compliance due to social issues - SS to see, needs assisted living hypomagnesemia - replace debility from poorly treated chronic illness - SNU or Assisted living with [facility] loz[facility], continue therapy Evelin RUIZ MD May 27, 2019 16:24
[2019-05-27] MEDS: WARFARIN 3 MG TABLET. PO SCH (16:45)
[2019-05-27 19:30] VITALS: BP 138/88
--- NOTE | 2019-05-27 19:30 | NUR ---
Pt sitting up in chair assessment completed vss poc explained pt denies pain or headache at this time will resume care and continue to monitor pt. Call light in each.
[2019-05-27] MEDS: ATORVASTATIN CALCIUM 20 MG TABLET PO SCH (21:28)
[2019-05-27] MEDS: INSULIN GLARGINE 300 UNITS/3 ML INSULN.PEN. SQ SCH (21:32)
[2019-05-27 22:51] VITALS: BP 147/79
[2019-05-28 03:36] VITALS: BP 138/78
[2019-05-28 07:00] VITALS: BP 142/77
[2019-05-28] MEDS: IPRATRPIUM/ALBUTEROL 0.5/2.5MG 3 ML NEBU. NEB SCH ×2 (07:19→11:08)
[2019-05-28 07:22] LABS: PROTHROMBIN TIME PATIENT 27.5 SEC (11.7-14.0)
[2019-05-28] MEDS: INSULIN LISPRO 300 UNITS/3 ML INSULN.PEN. SQ SCH ×4 (08:00→12:54)
[2019-05-28] MEDS ORDERED: ERGOCALCIFEROL (VITAMIN D2) 50,000 UNIT CAPSULE. PO SCH (09:00)
--- NOTE | 2019-05-28 09:04 | NUR ---
Pharmacy Warfarin Dosing Note S: Pharmacy consulted to assist with anticoagulation therapy O: MICHAELA COOPER is a 74 year old F with Atrial Fibrillation LABS: Last INR: 2.6 Last HGB: 14.4 Last HCT: 42.8 Last PLT: 250 Last dose of 6 mg given on 05/27/19 at 1646 Vitamin K given: N Ongoing Drug Interactions: ASA A:INR of 2.6 is within desired range. Target range for this patient is: 2 - 3. Due to INR stability on home regimen, will change to INR draws twice/week on Mon/. P: Continue warfarin 6 mg/day Bridge Therapy: Heparin Gtt D/C Next INR due 05/30/19 Pharmacy anticoagulation service will continue to follow. ALYSSA KIRKPATRICK [facility], 05/28/19 [id number]
[2019-05-28] MEDS: LISINOPRIL 10 MG TABLET PO SCH (09:43)
[2019-05-28] MEDS: FUROSEMIDE 40 MG TABLET. PO SCH (09:43)
[2019-05-28] MEDS: FLUTICASONE 50MCG/NASAL SPRAY 16GM BOTTLE. NS SCH (09:43)
[2019-05-28] MEDS: buPROPion SR 150 MG TABLET.SA PO SCH (09:43)
[2019-05-28] MEDS: metFORMIN 500 MG TABLET PO SCH (09:44)
[2019-05-28] MEDS: METOPROLOL TART IMMED RELEASE 50 MG TABLET. PO SCH (09:45)
[2019-05-28] MEDS: ASPIRIN ENTERIC COATED 81 MG TABLET.DR. PO SCH (09:45)
--- NOTE | 2019-05-28 10:39 | NUR ---
SS following up with discharge planning. [facility] Medicaid contacted [facility] this morning with determination and declined pt for inpatient rehabilitation services. SS contacted pt's daughter, Jeannie, , and discussed. Pt's daughter reported that she is submitting documentation needed to [facility], ; fax [phone], and is hoping to have pt placed at [facility] by the weekend. Pt's daughter reported that in the mean time pt can discharge to her home at [address] [address], with home healthcare services. Pt's daughter reported not having a preference of home healthcare. Referral and orders for home healthcare being faxed to [facility], ; fax [phone]. Pt's daughter reported that she will transport pt. Pt's RN notified.
[2019-05-28 11:00] VITALS: BP 146/81
--- NOTE | 2019-05-28 12:24 | SNU/HH DC ---
DISCHARGE WITH HOME HEALTH DISCHARGE INFORMATION: Discharge Date: May 28, 2019 Final Diagnosis: Problems Medical Problems: (1) Atrial fibrillation with rapid ventricular response Status: Acute (2) Chronic systolic CHF (congestive heart failure) Status: Chronic (3) HLD (hyperlipidemia) Status: Chronic (4) Hypomagnesemia Status: Acute (5) Uncontrolled diabetes mellitus Status: Chronic Condition on Discharge: Stable CODE STATUS: Code Status: Full HOME HEALTH: Face to Face: I certify this patient is under my care and that I, or a nurse practitioner or physician's assistant maintenance manager working with me, had a face to face encounter that meets the physician face to face encounter requirements with this patient on 05/28/19. RN For Eval/Treatment: No Physical Therapy For: Evalulation/Treatment Occupational Therapy For: Evaluation/Treatment Pt Meets Homebound Status: Unsteady balance w/ amb,, Fatigue w/ amb., Limited distance walking POST DISCHARGE ORDERS: Activity Instructions for Disc: Activity as tolerated Weight Bearing Status after Di: No restrictions DIET AFTER DISCHARGE: ADA CHECKS AFTER DISCHARGE: Checks after discharge: Check blood press - daily, Check blood sugar, ac/hs, Check your Temp as needed, Weigh Yourself Daily FOLLOW-UP: Follow up with: 2 weeks TREATMENT/EQUIPMENT ORDERS: Discharge Respiratory Equipmen: Nebulizer CERTIFICATION STATEMENT: Certification Statement: Certification Statement: Based on the above finding, I certify that this patient is confined to the home and needs intermittent longterm care, physical therapy and/or speech therapy, or continues to need occupational therapy.~ This patient is under my care, and I have initiated the establishment of the plan of care.~ This patient will be followed by myself or a community physician who will periodically review the plan of care. Home Meds Active Scripts Atorvastatin Calcium (ATORVASTATIN CALCIUM) 20 Mg Tablet, 20 MG PO QHS for cholesterol for 30 Days, #30 TAB Prov:Evelin RUIZ MD 05/24/19 Metoprolol Tartrate (METOPROLOL TARTRATE) 50 Mg Tablet, 50 MG PO BID for heart rate for 30 Days, #60 TAB Prov:Evelin RUIZ MD 05/24/19 Lisinopril (LISINOPRIL) 10 Mg Tablet, 10 MG PO DAILY for heart/bp/kidneys for 30 Days, #30 TAB Prov:Evelin RUIZ MD 05/24/19 Acetaminophen (TYLENOL) 325 Mg Tablet, 650 MG PO PRN Q6HRS PRN for PAIN for 30 Days, #100 TAB Prov:Evelin RUIZ MD 05/24/19 Warfarin Sodium (COUMADIN) 3 Mg Tablet, 6 MG PO DAILY16 for afib for 30 Days, #60 TAB Prov:Evelin RUIZ MD 05/24/19 Diltiazem Hcl (DILTIAZEM 24HR CD) 300 Mg Cap.er.24h, 300 MG PO DAILY for 30 Days Prov:LINDA RG MD 10/13/15 Digoxin (LANOXIN) 125 Mcg Tablet, 125 MCG PO DAILY for 30 Days Prov:LINDA RG MD 10/13/15 [Albuterol Sulfate] 2.5 MG/3 ML NEBU No Conflict Check, 2.5 MG NEB PRN Q4HRS PRN for SHORTNESS OF BREATH Prov:Evelin RUIZ MD 06/25/15 [Ipratropium/Albuterol Sulfate] 3 ML NEBU No Conflict Check, 3 ML NEB RTQID Prov:Evelin RUIZ MD 06/25/15 Reported Medications Bupropion Hcl (WELLBUTRIN SR) 150 Mg Tablet.er, 150 MG PO DAILY for antidepresant, TAB.SR 05/21/19 Insulin Aspart (NOVOLOG) 100 Unit/1 Ml Cartridge, 15 UNIT SQ TID for glucose control, EACH 05/21/19 Aspirin (ASPIRIN EC) 81 Mg Tablet.dr, 1 TAB PO DAILY for circulations, #30 TAB 3 Refills 05/21/19 Fluticasone Propionate (FLUTICASONE PROPIONATE NASAL SPRAY) 16 Gm [place].susp, 2 SPRAY NS DAILY, #1 INHALER 11 Refills LAST DOSE GIVEN: DATE: 10-13-15 TIME: 9 am NEXT DOSE DUE: DATE: 10-14-15 TIME: 9 am 06/23/15 Furosemide (FUROSEMIDE) 40 Mg Tablet, 1 TAB PO DAILY, #30 TAB 5 Refills LAST DOSE GIVEN: DATE: 10-13-15 TIME: 9 am NEXT DOSE DUE: DATE: 10-14-15 TIME: 9 am 06/23/15 Ergocalciferol (Vitamin D2) (VITAMIN D2) 50,000 Unit Capsule, 1 CAP PO WEEKLY, #4 CAP 5 Refills 06/23/15 Metformin Hcl (METFORMIN HCL) 1,000 Mg Tablet, 1 TAB PO BID PRN for BLADDER SPASM, #60 TAB 5 Refills LAST DOSE GIVEN: DATE: 10-13-15 TIME: 9 am NEXT DOSE DUE: DATE: 10-14-15 TIME: 9 am 06/23/15 Discontinued Reported Medications Carvedilol (COREG) 25 Mg Tablet, 25 MG PO BIDWMEALS for CARDIAC, TAB 05/21/19 Clonidine Hcl (CLONIDINE HCL) 0.2 Mg Tablet, 1 TAB PO BID, #180 TAB 3 Refills LAST DOSE GIVEN: DATE: 10-13-15 TIME: 9 am NEXT DOSE DUE: DATE: TIME: 5 pm 06/23/15 Amlodipine Besylate (AMLODIPINE BESYLATE) 10 Mg Tablet, 10 MG PO DAILY, TAB 10/13/15 Duloxetine Hcl (CYMBALTA) 60 Mg Capsule.dr, 1 CAP PO DAILY, #90 CAP 3 Refills LAST DOSE GIVEN: DATE: 10-13-15 TIME: 9 am NEXT DOSE DUE: DATE: 10-14-15 TIME: 9 am 06/23/15 Simvastatin (SIMVASTATIN) 40 Mg Tablet, 40 MG PO DAILY for FOR CHOLESTEROL, #30 TAB 0 Refills LAST DOSE GIVEN: DATE: 10-12-15 TIME: 9 pm NEXT DOSE DUE: DATE: 10-13-15 TIME: 9 pm 06/23/15 Lisinopril (LISINOPRIL) 40 Mg Tablet, 1 TAB PO DAILY, #30 TAB 5 Refills LAST DOSE GIVEN: DATE: 10-13-15 TIME: 9 am NEXT DOSE DUE: DATE: 10-14-15 TIME: 9 am 06/23/15 Glimepiride (GLIMEPIRIDE) 2 Mg Tablet, 1 TAB PO DAILY, #30 TAB 5 Refills LAST DOSE GIVEN: DATE: 10-13-15 TIME: 9 am NEXT DOSE DUE: DATE: 10-14-15 TIME: 9 am 06/23/15 Discontinued Scripts Warfarin Sodium (WARFARIN SODIUM) 5 Mg Tablet, 1 TAB PO DAILY, #90 TAB 1 Refill Prov:LINDA RG MD 10/13/15 Evelin RUIZ MD May 28, 2019 12:24
--- NOTE | 2019-05-28 13:16 | PDOC3 ---
Discharge Summary [facility] Date of Admission: May 21, 2019 Discharge Date: May 28, 2019 Admitting Diagnosis afib, rvr Final Diagnosis Problems Medical Problems: (1) Atrial fibrillation with rapid ventricular response Status: Acute (2) Chronic systolic CHF (congestive heart failure) Status: Chronic (3) HLD (hyperlipidemia) Status: Chronic (4) Hypomagnesemia Status: Acute (5) Uncontrolled diabetes mellitus Status: Chronic CONSULTS cardiology, pulmonary Procedures none Brief Hospital Course Ms. Yang is a 74 old who presented to the office with shortness of breath and found to be in Afib with a ventricular rate of 160 and admitted Afib/RVR - rate controlled with IV then oral meds, no CHF per CXR or ACS per enzymes - cardiology consulted, resumed warfarin after getting therapeutic enough to stop Heparin uncontrolled type 2 DM - out of meds - resumed home meds and controlled Asthma/COPD, no evidence of acute exacerbation, stable with meds, neb treatments non compliance due to social issues - saw, needs assisted living - going to [facility] on Thursday 05/31 hypomagnesemia - replaced debility from poorly treated chronic illness - PT/OT, Assisted living with prakash walker, continue therapy in the interim with therapy Patient History: Family history: Cardiovascular disease (situation) Family history: Diabetes mellitus (situation) Family history: Hypertension (situation) Disposition assisted living CONDITION AT DISCHARGE: Improved, Stable Diet ADA, lo sodium Scheduled Aspirin (Aspirin Ec), 1 TAB PO DAILY, (Reported) Atorvastatin Calcium (Atorvastatin Calcium), 20 MG PO QHS Bupropion Hcl (Wellbutrin Sr), 150 MG PO DAILY, (Reported) Digoxin (Lanoxin), 125 MCG PO DAILY Diltiazem Hcl (Diltiazem 24HR Cd), 300 MG PO DAILY Ergocalciferol (Vitamin D2) (Vitamin D2), 1 CAP PO WEEKLY, (Reported) Fluticasone Propionate (Fluticasone Propionate Nasal [place]), 2 SPRAY NS DAILY, (Reported) Furosemide (Furosemide), 1 TAB PO DAILY, (Reported) Insulin Aspart (Novolog), 15 UNIT SQ TID, (Reported) Lisinopril (Lisinopril), 10 MG PO DAILY Metoprolol Tartrate (Metoprolol Tartrate), 50 MG PO BID Warfarin Sodium (Coumadin), 6 MG PO DAILY16 [Ipratropium/Albuterol Sulfate], 3 ML NEB RTQID Scheduled PRN Acetaminophen (Tylenol), 650 MG PO PRN Q6HRS PRN for PAIN Metformin Hcl (Metformin Hcl), 1 TAB PO BID PRN for BLADDER SPASM, (Reported) [Albuterol Sulfate], 2.5 MG NEB PRN Q4HRS PRN for SHORTNESS OF BREATH Discontinued Medications Amlodipine Besylate (Amlodipine Besylate), 10 MG PO DAILY, (Reported) Carvedilol (Coreg), 25 MG PO BIDWMEALS, (Reported) Clonidine Hcl (Clonidine Hcl), 1 TAB PO BID, (Reported) Duloxetine Hcl (Cymbalta), 1 CAP PO DAILY, (Reported) Glimepiride (Glimepiride), 1 TAB PO DAILY, (Reported) Lisinopril (Lisinopril), 1 TAB PO DAILY, (Reported) Simvastatin (Simvastatin), 40 MG PO DAILY, (Reported) Warfarin Sodium (Warfarin Sodium), 1 TAB PO DAILY Follow Up 1-2 weeks Evelin RUIZ MD May 28, 2019 1:16 pm
[2019-05-28 15:00] VITALS: BP 141/84
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
--- NOTE | 2019-05-28 16:33 | NUR ---
Discharge Note: IRAM COOPER Discharge instructions and discharge home medications reviewed with Patient and a copy given. All questions have been answered and understanding verbalized. The following instructions and handouts were given: med list, Afib and insulin education, INR monitoring, and follow up appointment Discontinued lines and drains: IV discontinued, dressing clean, dry, intact. Patient discharged to home with home health via wheelchair
== END 2019-05-28 15:40 | disposition home health service (06) | DRG 309 ==
LOC: 2 NORTH 10:27 → EEVIPCON 10:27 → UNDODISIN 18:00
PROVIDERS: ADMIT Family Medicine; ATTEND Family Medicine
DX: I48.91 Unspecified atrial fibrillation (principal); I50.42 Chronic combined systolic (congestive) and diastolic (congestive) heart failure; E78.5 Hyperlipidemia, unspecified; F03.90 Unspecified dementia, unspecified severity, without behavioral disturbance, psychotic disturbance, mood disturbance, and anxiety; F32.9 Major depressive disorder, single episode, unspecified; J44.9 Chronic obstructive pulmonary disease, unspecified; I42.9 Cardiomyopathy, unspecified; I11.0 Hypertensive heart disease with heart failure; E83.42 Hypomagnesemia; E11.9 Type 2 diabetes mellitus without complications; Z83.3 Family history of diabetes mellitus; Z90.710 Acquired absence of both cervix and uterus; Z90.49 Acquired absence of other specified parts of digestive tract; Z98.51 Tubal ligation status; Z88.8 Allergy status to other drugs, medicaments and biological substances; Z91.19 Patient's noncompliance with other medical treatment and regimen; Z82.49 Family history of ischemic heart disease and other diseases of the circulatory system; Z79.84 Long term (current) use of oral hypoglycemic drugs; Z91.419 Personal history of unspecified adult abuse
CPT/HCPCS: 36415; 71045; 80048; 80053; 80061; 80162; 82962; 83036; 83735; 84443; 84484; 85025; 85520; 85610; 93306; 94640; 94760; J1644; J1815; J2405; J3475; J3490; J7620; 97110; 97116; 97530; 97535; G0378

== ENCOUNTER 2020-02-23 19:18 | Inpatient (IN) | payer MEDICAID, MEDICARE ==
[~2020-02-23] VITALS: Ht 162.6 cm; Wt 123.0 kg
[~2020-02-23 19:18] MED LIST changes: +ACET325T9 PO; +ASPI-612 PO; +ATOR20TA58 PO; +BUPR150T8 PO; +CARV25TA PO; +CEFD300C PO; -CLON1TAB11 PO; +CLONAZEPAM1 MG PO; +CYAN-25 PO; +FERR325T72 PO; -GLIM2TAB2 PO; +GLIM2TAB7 PO; +GUAI100L12 PO; +HYDR-2868 PO; +INSU100C4 SQ; +IPRA3AMP29 NEB; +LISI10TA2 PO; +LORA0.5T96 PO; +METO50TA6 PO; +PANT40TA77 PO; +SIMV20TA18 PO; -SIMV20TA3 PO; +SIMV40TA18 PO; -SIMV40TA3 PO; +WARF3TAB54 PO
[2020-02-23] MEDS ORDERED: IV NORMAL SALINE 1000ML BAG 1,000 ML IV SCH (19:28)
--- NOTE | 2020-02-23 19:40 | PHYS DOC ---
Past Medical History Past Medical History: A-Fib, Anxiety, CHF, COPD, Diabetes-Type II, High C holesterol, Hypertension Past Surgical History: Appendectomy, Cholecystectomy, , Hysterectomy, Tubal ligation, Other Additional Past Surgical Histo: bladder Smoking Status: Never Smoker Alcohol Use: None Drug Use: None General Adult EDM: Chief Complaint: NAUSEA/VOMITING/DIARRHA HPI: HPI: Patient is a 74 year old female who presents with complaint of acute onset of dizziness that started about 2 hours ago and then nausea and vomiting that started an hour ago. Patient states that when the dizziness gets worse, she has had nausea and vomiting. She denies any headache. Patient does indicate that dizziness is worsened with change of position and is improved when she closes her eyes. Patient also admits to some shortness of breath but states that is chronic and she has history of COPD. She indicates that she is not on oxygen at home. She denies any chest pain. She also denies any fever. Patient tested positive for COVID in the recent past but is not sure when that was. [] Review of Systems: Review of Systems: Constitutional: Denies fever or chills. [] Respiratory: Admits to shortness of breath. [] Cardiovascular: Denies chest pain or edema. [] GI: Denies abdominal pain. Complains of nausea and vomiting [] Neurologic: Denies headache, focal weakness or sensory changes. Complains of vertiginous dizziness. [] A full 10 point review of systems has been reviewed and is otherwise negative. Heart Score: Risk Factors: Risk Factors: DM, Current or recent (<one month) smoker, HTN, HLP, family history of CAD, obesity. Risk Scores: Score 0 - 3: 2.5% MACE over next 6 weeks - Discharge Home Score 4 - 6: 20.3% MACE over next 6 weeks - Admit for Clinical Observation Score 7 - 10: 72.7% MACE over next 6 weeks - Early Invasive Strategies Current Medications: Current Medications Medications (Trade) Dose Ordered Sig/Shikha Start Time Stop Time Status Last Admin Dose Admin Lorazepam (Ativan Inj) 1 mg 1X ONCE 02/23/20 19:45 02/23/20 19:46 Meclizine HCl (Antivert) 25 mg 1X ONCE 02/23/20 19:45 02/23/20 19:46 Ondansetron HCl (Zofran) 4 mg 1X ONCE 5/10/20 19:45 02/23/20 19:46 Sodium Chloride 1,000 ml @ 1,000 mls/hr Q1H 02/23/20 19:28 02/23/20 20:27 Allergies: Allergies: Allergies Coded Allergies Type Severity Reaction Last Updated Verified fexofenadine Allergy Intermediate Palpitations 10/04/15 Yes Physical Exam: PE: Constitutional: Well developed, well nourished, no acute distress, non-toxic appearance. [] HENT: Normocephalic, atraumatic, bilateral external ears normal, oropharynx moist, no oral exudates, nose normal. [] Eyes: PERRLA, EOMI, conjunctiva normal, no discharge. [] Neck: Normal range of motion, no tenderness, supple, no stridor. [] Cardiovascular: Regular rate and rhythm [] Lungs & Thorax: Fine rhonchi are noted in the right lung base to auscultation [] Abdomen: Bowel sounds normal, soft, no tenderness. [] Skin: Warm, dry, no erythema, no rash. [] Extremities: No tenderness, no cyanosis, no clubbing, ROM intact. [] Neurologic: Alert and oriented X 3, no focal deficits noted. [] EKG: EKG: [] Radiology/Procedures: Radiology/Procedures: [] Impression: PROCEDURE: PORTABLE CHEST 1V PORTABLE CHEST 1V History: Shortness of breath Comparison: CT December 19, 2019 chest x-ray December 16, 2019 Findings: Mild diffuse interstitial thickening. No pleural effusion. No pneumothorax. Enlarged cardiac size, unchanged. Chronic right-sided rib fractures. Impression: 1. Mild diffuse interstitial thickening, may represent pulmonary edema or atypical infection such as viral pneumonia. 2. Cardiomegaly, unchanged. Electronically signed by: Kirk Menon DO (02/23/2020 8:26 PM) [facility] Course & Med Decision Making: Course & Med Decision Making Pertinent Labs and Imaging studies reviewed. (See chart for details) [] Dragon Disclaimer: Dragon Disclaimer: This electronic medical record was generated, in whole or in part, using a voice recognition dictation system. COVID-19 Patient Risks: Age 65 or older: Yes Sign of co-morbidity: Yes Exp to person + for COVID: Yes Exp to PUI: Yes Travel from affected area: No Lower respiratory symptoms: Yes Fever: No Other: Yes Comments: PATIENT HAS TESTED POSITIVE FOR COVID PPE Use: Full PPE with N95 mask or PAPR: Yes Departure Departure Impression: Primary Impression: Pneumonia Qualified Codes: J18.9 - Pneumonia, unspecified organism Additional Impressions: COVID-19 Vertigo Hypertensive urgency Disposition: ADMITTED INPATIENT Admitting Physician: KATHI Condition: IMPROVED Referrals: VARGAS SETH MD (PCP) NADEGE BURNHAM Jr. DO February 23, 2020 19:40
[2020-02-23] MEDS ORDERED: MECLIZINE HCL 12.5 MG TABLET. PO ONE (19:45)
[2020-02-23] MEDS ORDERED: ONDANSETRON PF 4 MG/2 ML VIAL. IVP ONE (19:45)
[2020-02-23 19:50] LABS: BASO # 0.1 x10^3/uL (0.0-0.2); BASO % 1 % (0-3); EOS # 0.2 x10^3/uL (0.0-0.7); EOS % 2 % (0-3); HEMATOCRIT 37.6 % (36.0-47.0); HEMOGLOBIN 11.7 g/dL (12.0-15.5); LYMPH # 0.7 x10^3/uL (1.0-4.8); LYMPH % 5 % (24-48); MEAN CORPUSCULAR HEMOGLOBIN 25 pg (25-35); MEAN CORPUSCULAR HGB CONC 31 g/dL (31-37); MEAN CORPUSCULAR VOLUME 79 fL (79-100); MONO # 0.7 x10^3/uL (0.0-1.1); MONO % 5 % (0-9); NEUT # 11.4 x10^3/uL (1.8-7.7); NEUT % 87 % (31-73); PLATELET COUNT 353 x10^3/uL (140-400); RED BLOOD COUNT 4.77 x10^6/uL (3.50-5.40); RED CELL DISTRIBUTION WIDTH 22.4 % (11.5-14.5); WHITE BLOOD COUNT 13.1 x10^3/uL (4.0-11.0)
[2020-02-23] MEDS ORDERED: hydrALAZINE 20 MG/ML VIAL. IVP ONE ×2 (20:00→23:30)
[2020-02-23 20:06] LABS: CREATININE 0.8 mg/dL (0.6-1.0); GFR 70.3; POTASSIUM 4.2 mmol/L (3.5-5.1)
[2020-02-23 20:11] LABS: ALBUMIN 3.4 g/dL (3.4-5.0); ALBUMIN/GLOBULIN RATIO 0.9 (1.0-1.7); MAGNESIUM 1.8 mg/dL (1.8-2.4); TOTAL BILIRUBIN 0.9 mg/dL (0.2-1.0); TOTAL PROTEIN 7.4 g/dL (6.4-8.2)
[2020-02-23 20:23] LABS: % ATYL 1 % (0-0); % EOS 1 % (0-5); % LYMPHS 6 % (24-48); % MONOS 3 % (0-10); % SEGS 89 % (35-66); ANISOCYTOSIS MOD; HYPOCHROMIA SLIGHT; PLT ESTIMATE ADEQUATE (ADEQUATE)
[2020-02-23 20:24] LABS: OVALOCYTES FEW; POLYCHROMASIA SLIGHT
--- NOTE | 2020-02-23 20:29 | RAD ---
PORTABLE CHEST 1V History: Shortness of breath Comparison: CT December 19, 2019 chest x-ray December 16, 2019 Findings: Mild diffuse interstitial thickening. No pleural effusion. No pneumothorax. Enlarged cardiac size, unchanged. Chronic right-sided rib fractures. Impression: 1. Mild diffuse interstitial thickening, may represent pulmonary edema or atypical infection such as viral pneumonia. 2. Cardiomegaly, unchanged. Electronically signed by: Kirk Menon DO (02/23/2020 8:26 PM) [facility]
[2020-02-23] MEDS ORDERED: cefTRIAXone IV Push 1 GM VIAL. IVP ONE (22:30)
[2020-02-23] MEDS ORDERED: AZITHROMYCIN 250 MG TABLET. PO ONE (22:30)
[2020-02-23] MEDS ORDERED: SCOPOLAMINE 1.5MG PATCH. TD ONE (22:30)
[2020-02-23 22:59] LABS: CORRECTED PCO2 ABG 43 mmHg; CORRECTED PH ABG 7.37; CORRECTED PO2 ABG 90 mmHg
[2020-02-23] MEDS ORDERED: ONDANSETRON PF 4 MG/2 ML VIAL. IV PRN (23:00)
[2020-02-23] MEDS ORDERED: ACETAMINOPHEN 325 MG TABLET. PO PRN (23:00)
[2020-02-23 23:05] LABS: BASE EXCESS ABG -1 mmol/L (-3-3); HCO3 ABG 24 mmol/L (21-28); PCO2 ABG 43 mmHg (35-46); PO2 ABG 90 mmHg (65-108)
[2020-02-23 23:06] LABS: FIO2 ABG 38; SAT O2 ABG 96 % (92-99)
[2020-02-23] MEDS ORDERED: IPRATRPIUM/ALBUTEROL 0.5/2.5MG 3 ML NEBU. NEB ONE (23:45)
[2020-02-24] VITALS (19 sets, daily range): BP systolic 130–196; BP diastolic 55–96
[2020-02-24] MEDS ORDERED: cloNIDine HCL 0.1 MG TABLET PO ONE (01:00)
--- NOTE | 2020-02-24 01:40 | NUR ---
patient admitted from a assist living. no information sent. Patient unable to recall medications. LMOM for staff to call and provide info.
[2020-02-24 05:42] LABS: BASO # 0.1 x10^3/uL (0.0-0.2); BASO % 1 % (0-3); EOS % 0 % (0-3); HEMATOCRIT 34.7 % (36.0-47.0); HEMOGLOBIN 10.8 g/dL (12.0-15.5); LYMPH # 0.5 x10^3/uL (1.0-4.8); LYMPH % 4 % (24-48); MEAN CORPUSCULAR HEMOGLOBIN 25 pg (25-35); MEAN CORPUSCULAR HGB CONC 31 g/dL (31-37); MEAN CORPUSCULAR VOLUME 79 fL (79-100); MONO # 0.3 x10^3/uL (0.0-1.1); MONO % 3 % (0-9); NEUT # 10.9 x10^3/uL (1.8-7.7); NEUT % 93 % (31-73); PLATELET COUNT 315 x10^3/uL (140-400); RED BLOOD COUNT 4.39 x10^6/uL (3.50-5.40); RED CELL DISTRIBUTION WIDTH 22.2 % (11.5-14.5); WHITE BLOOD COUNT 11.7 x10^3/uL (4.0-11.0)
[2020-02-24 06:07] LABS: ALBUMIN 2.8 g/dL (3.4-5.0); ALBUMIN/GLOBULIN RATIO 0.8 (1.0-1.7); CALCIUM 8.4 mg/dL (8.5-10.1); CREATININE 0.9 mg/dL (0.6-1.0); GFR 61.4; POTASSIUM 5.1 mmol/L (3.5-5.1); TOTAL BILIRUBIN 0.9 mg/dL (0.2-1.0); TOTAL PROTEIN 6.3 g/dL (6.4-8.2)
[2020-02-24] MEDS ORDERED: IPRATRPIUM/ALBUTEROL 0.5/2.5MG 3 ML NEBU. NEB SCH (08:00)
[2020-02-24] MEDS ORDERED: LOPE2TAB27 PO (08:27)
[2020-02-24] MEDS ORDERED: LORA10TA3 PO (08:27)
[2020-02-24] MEDS ORDERED: VENTOLIN HFA18 GM INH (08:27)
[2020-02-24] MEDS ORDERED: IPRA4AER IH (08:27)
[2020-02-24] MEDS ORDERED: METO50TA6 PO (08:27)
[2020-02-24] MEDS ORDERED: FURO40TA4 PO (08:27)
[2020-02-24] MEDS ORDERED: WARF1TAB69 PO (08:27)
--- NOTE | 2020-02-24 08:27 | EKG ---
[facility] [address] [place] [address] Test Date: 2020-02-23 Test Time: 19:31:25 Pat Name: MICHAELA COOPER Department: Room: [facility] 1 Gender: F Road Machine Operator: : [id number] Requested By: NADEGE BURNHAM Order Number: [id number] Reading MD: Chris Ruiz Measurements Intervals [place] Rate: 75 P: VT: QRS: -4 QRSD: 98 T: 92 QT: 392 QTc: 440 Interpretive Statements ATRIAL FIBRILLATION VENTRICULAR PREMATURE COMPLEX(ES) LEFTWARD AXIS NONSPECIFIC ST-T WAVE CHANGES. Electronically Signed On 02-24-2020 11:02:48 CDT by Chris Ruiz
[2020-02-24] MEDS ORDERED: IPRATRPIUM/ALBUTEROL 0.5/2.5MG 3 ML NEBU. NEB PRN (09:30)
[2020-02-24] MEDS ORDERED: hydrALAZINE 20 MG/ML VIAL. IVP PRN (09:45)
--- NOTE | 2020-02-24 09:45 | PDOC2 ---
JOSH KOEHLER CRIMINAL JUSTICE DEPARTMENT CHAIR 02/24/20 0944: CARDIAC CONSULT DATE OF CONSULT Date of Consult DATE: 02/24/20 TIME: 09:34 REASON FOR CONSULT Reason for Consult: Hypertensive urgency REFERRING PHYSICIAN Referring Physician: Dr. Rivera SOURCE Source: Chart review, Patient HISTORY OF PRESENT ILLNESS HISTORY OF PRESENT ILLNESS This is a 74 yo female who presented secondary to dizziness, nausea/vomiting. Blood pressure was significantly elevated, which prompted this consult. Patient has a h/o PAFIB. Presently AFIB on tele. Dizziness is improved. Denies and chest pain, palpitations, or SOA. Reports compliance with medications; "I take what they given me". PAST MEDICAL HISTORY Past Medical History Cardiovascular: HTN, Hyperlipidemia, AFIB, valvular insufficiency, CHF, cardiomyopathy Pulmonary: COPD GI: No pertinent hx Heme/Onc: B12 deficiency Hepatobiliary: No pertinent hx Psych: Depression Rheumatologic: No pertinent hx Infectious disease: No pertinent hx ENT: Allergic Rhinitis Renal/: No pertinent hx Endocrine: Diabetes Dermatology: No pertinent hx PAST SURGICAL HISTORY Past Surgical History Appendectomy, Cholecystectomy, Tubal Ligation, Hysterectomy FAMILY HISTORY Family History: Diabetes SOCIAL HISTORY Social History Smoke: No ALCOHOL: none Drugs: None Lives: with Family CURRENT MEDICATIONS CURRENT MEDICATIONS Current Medications Medications (Trade) Dose Ordered Sig/Shikha Route PRN Reason Start Time Stop Time Status Last Admin Dose Admin Ondansetron HCl (Zofran) 4 mg 1X ONCE IVP 02/23/20 19:45 02/23/20 19:46 DC 02/23/20 19:43 Meclizine HCl (Antivert) 25 mg 1X ONCE PO 02/23/20 19:45 02/23/20 19:46 DC 02/23/20 19:44 Sodium Chloride 1,000 ml @ 1,000 mls/hr Q1H IV 02/23/20 19:28 02/23/20 20:27 DC 02/23/20 20:14 Lorazepam (Ativan Inj) 1 mg 1X ONCE IVP 02/23/20 19:45 02/23/20 19:46 DC 02/23/20 19:44 Hydralazine HCl (Apresoline Inj) 10 mg 1X ONCE IVP 02/23/20 20:00 02/23/20 20:03 DC 02/23/20 20:14 Scopolamine (Transderm-Scop) 1 patch 1X ONCE TD 02/23/20 22:30 02/23/20 22:31 DC 02/23/20 22:21 Ceftriaxone Sodium (Rocephin) 1 gm 1X ONCE IVP 02/23/20 22:30 02/23/20 22:31 DC 02/23/20 22:27 Azithromycin (Zithromax) 500 mg 1X ONCE PO 02/23/20 22:30 02/23/20 22:31 DC 02/23/20 22:26 Hydralazine HCl (Apresoline Inj) 10 mg 1X ONCE IVP 02/23/20 23:30 02/23/20 23:31 DC 02/23/20 23:12 Clonidine HCl (Catapres) 0.2 mg 1X ONCE PO 02/24/20 01:00 02/24/20 01:01 DC 02/24/20 00:47 ALLERGIES ALLERGIES: Coded Allergies: fexofenadine (Verified Allergy, Intermediate, Palpitations, 10/04/15) " tachycardia" ROS Review of System 14 point ROS conducted with pertinent positives noted above in HPI PHYSICAL EXAM PHYSICAL EXAM General: Alert, Oriented X3, Cooperative, No acute distress HEENT: Atraumatic, Mucous membr. moist/pink Lungs: diminished Heart: Other (AFIB, rate controlled Abdomen: Soft, No tenderness Extremities: No cyanosis, 1+ bilateral LE edema Skin: No breakdown, No significant lesion Neuro: Normal speech, Sensation intact Psych/Mental Status: Mental status NL, Mood NL MUSCULOSKELETAL: Osteoarthritic changes both hands VITALS/I&O VITALS/I&O: Vital Signs Date Time Temp Pulse Resp B/P (MAP) Pulse Ox O2 Delivery O2 Flow Rate FiO2 02/24/20 08:00 97.5 74 13 178/77 (110) Nasal Cannula 4.0 97.5 02/24/20 07:00 98 I & O 02/23/20 02/23/20 02/24/20 15:00 23:00 07:00 Intake Total 500 ml 0 ml Output Total 0 ml Balance 500 ml 0 ml LABS Lab: Laboratory Tests Test 02/23/20 19:36 02/23/20 22:49 02/24/20 04:45 02/24/20 08:41 White Blood Count 13.1 x10^3/uL (4.0-11.0) H 11.7 x10^3/uL (4.0-11.0) H Red Blood Count 4.77 x10^6/uL (3.50-5.40) 4.39 x10^6/uL (3.50-5.40) Hemoglobin 11.7 g/dL (12.0-15.5) L 10.8 g/dL (12.0-15.5) L Hematocrit 37.6 % (36.0-47.0) 34.7 % (36.0-47.0) L Mean Corpuscular Volume 79 fL (79-100) 79 fL (79-100) Mean Corpuscular Hemoglobin 25 pg (25-35) 25 pg (25-35) Mean Corpuscular Hemoglobin Concent 31 g/dL (31-37) 31 g/dL (31-37) Red Cell Distribution Width 22.4 % (11.5-14.5) H 22.2 % (11.5-14.5) H Platelet Count 353 x10^3/uL (140-400) 315 x10^3/uL (140-400) Neutrophils (%) (Auto) 87 % (31-73) H 93 % (31-73) H Lymphocytes (%) (Auto) 5 % (24-48) L 4 % (24-48) L Monocytes (%) (Auto) 5 % (0-9) 3 % (0-9) Eosinophils (%) (Auto) 2 % (0-3) 0 % (0-3) Basophils (%) (Auto) 1 % (0-3) 1 % (0-3) Neutrophils # (Auto) 11.4 x10^3/uL (1.8-7.7) H 10.9 x10^3/uL (1.8-7.7) H Lymphocytes # (Auto) 0.7 x10^3/uL (1.0-4.8) L 0.5 x10^3/uL (1.0-4.8) L Monocytes # (Auto) 0.7 x10^3/uL (0.0-1.1) 0.3 x10^3/uL (0.0-1.1) Eosinophils # (Auto) 0.2 x10^3/uL (0.0-0.7) 0.0 x10^3/uL (0.0-0.7) Basophils # (Auto) 0.1 x10^3/uL (0.0-0.2) 0.1 x10^3/uL (0.0-0.2) Segmented Neutrophils % 89 % (35-66) H Lymphocytes % 6 % (24-48) L Atypical Lymphocytes % (Manual) 1 % (0-0) H Monocytes % 3 % (0-10) Eosinophils % 1 % (0-5) Platelet Estimate Adequate (ADEQUATE) Giant Platelets Occ Polychromasia Slight Hypochromasia Slight Anisocytosis Mod Ovalocytes Few Sodium Level 135 mmol/L (136-145) L 134 mmol/L (136-145) L Potassium Level 4.2 mmol/L (3.5-5.1) 5.1 mmol/L (3.5-5.1) # Chloride Level 100 mmol/L (98-107) 99 mmol/L (98-107) Carbon Dioxide Level 27 mmol/L (21-32) 27 mmol/L (21-32) Anion Gap 8 (6-14) 8 (6-14) Blood Urea Nitrogen 11 mg/dL (7-20) 11 mg/dL (7-20) Creatinine 0.8 mg/dL (0.6-1.0) 0.9 mg/dL (0.6-1.0) Estimated GFR (Cockcroft-Gault) 70.3 61.4 BUN/Creatinine Ratio 14 (6-20) 12 (6-20) Glucose Level 220 mg/dL (70-99) H 309 mg/dL (70-99) H Calcium Level 9.0 mg/dL (8.5-10.1) 8.4 mg/dL (8.5-10.1) L Magnesium Level 1.8 mg/dL (1.8-2.4) Total Bilirubin 0.9 mg/dL (0.2-1.0) 0.9 mg/dL (0.2-1.0) Aspartate Amino Transferase (AST) 28 U/L (15-37) 15 U/L (15-37) Alanine Aminotransferase (ALT) 13 U/L (14-59) L 15 U/L (14-59) Alkaline Phosphatase 105 U/L (46-116) 93 U/L (46-116) Troponin I Quantitative < 0.017 ng/mL (0.000-0.055) Total Protein 7.4 g/dL (6.4-8.2) 6.3 g/dL (6.4-8.2) L Albumin 3.4 g/dL (3.4-5.0) 2.8 g/dL (3.4-5.0) L Albumin/Globulin Ratio 0.9 (1.0-1.7) L 0.8 (1.0-1.7) L O2 Saturation 96 % (92-99) Arterial Blood pH 7.37 (7.35-7.45) Arterial Blood pH (Temp corrected) 7.37 Arterial Blood pCO2 at Patient Temp 43 mmHg (35-46) Arterial Blood pCO2 (Temp correct) 43 mmHg Arterial Blood pO2 at Patient Temp 90 mmHg (65-108) Arterial Blood pO2 (Temp corrected) 90 mmHg Arterial Blood HCO3 24 mmol/L (21-28) Arterial Blood Base Excess -1 mmol/L (-3-3) FiO2 38 Glucose (Fingerstick) 276 mg/dL (70-99) H Laboratory Tests 02/23/20 19:36 02/24/20 04:45 Laboratory Tests 02/23/20 19:36 02/24/20 04:45 ECHOCARDIOGRAM ECHOCARDIOGRAM <Conclusion> There is mild concentric left ventricular hypertrophy. Left ventricle systolic function is moderately impaired. The Ejection Fraction is 40%. There is moderate diastolic dysfunction of the LV The left atrium is mildly dilated. The right atrium is borderline dilated. Doppler and Color Flow revealed mild aortic regurgitation. Doppler and Color Flow revealed moderate mitral regurgitation. Doppler and Color Flow revealed moderate tricuspid regurgitation. The PA pressure was estimated at 50 mmHg. The pulmonic valve is not well visualized. The aortic root is normal in size. There is no evidence of significant pericardial effusion. DATE: 10/07/15 1402 <Conclusion> The left ventricular systolic function is normal. The Ejection Fraction is 55-60%. There is normal LV segmental wall motion. Trace mitral regurgitation. Trace tricuspid regurgitation with an estimated PAP of 37 mmHg. There is no evidence of significant pericardial effusion. DATE: 05/22/19 0829 ASSESSMENT/PLAN ASSESSMENT/PLAN 1. Dizziness, nausea/vomiting; improved 2. Hypertensive urgency; remains elevated 3. Acute on chronic diastolic CHF; Recent echo with preserved LV systolic function 4. PAFIB; presently AFIB with controlled rate. On chronic warfarin therapy 5. Hyperlipidemia; statin therapy 6. Diabetes, II 7. Recent COVID +; unknown date Recommendations Diuresis Resume rate control therapy and antiHTN therapy Hydralazine IV PRN Titrate therapy as warranted Dig level PT/INR Warfarin for stroke prophylaxis Consider outpatient cardioversion Supportive care KATIE CABRERA MD 02/25/20 0956: CARDIAC CONSULT ASSESSMENT/PLAN ASSESSMENT/PLAN Agree with above REPORTING DEVELOPER note. Supportive care. Thanks JOSH KOEHLER APRN February 24, 2020 09:44 KATIE CABRERA MD February 25, 2020 09:56
--- NOTE | 2020-02-24 10:07 | NUR ---
SS following for discharge planning. SS reviewed pt chart and discussed with RN, Sil. Pt is from [facility], ; fax [phone] and per RN tested positive for COVID19 at [facility]. Pt is currently requiring oxygen. SS will continue to follow for discharge planning.
--- NOTE | 2020-02-24 10:28 | PDOC ---
Infectious Disease Note Vital Sign Vital Signs Vital Signs Date Time Temp Pulse Resp B/P (MAP) Pulse Ox O2 Delivery O2 Flow Rate FiO2 02/24/20 09:00 76 9 160/74 (102) 100 Nasal Cannula 4.0 02/24/20 08:00 97.5 97.5 Labs Lab Laboratory Tests Test 02/23/20 19:36 02/23/20 22:49 02/24/20 04:45 02/24/20 08:41 White Blood Count 13.1 x10^3/uL (4.0-11.0) 11.7 x10^3/uL (4.0-11.0) Red Blood Count 4.77 x10^6/uL (3.50-5.40) 4.39 x10^6/uL (3.50-5.40) Hemoglobin 11.7 g/dL (12.0-15.5) 10.8 g/dL (12.0-15.5) Hematocrit 37.6 % (36.0-47.0) 34.7 % (36.0-47.0) Mean Corpuscular Volume 79 fL (79-100) 79 fL (79-100) Mean Corpuscular Hemoglobin 25 pg (25-35) 25 pg (25-35) Mean Corpuscular Hemoglobin Concent 31 g/dL (31-37) 31 g/dL (31-37) Red Cell Distribution Width 22.4 % (11.5-14.5) 22.2 % (11.5-14.5) Platelet Count 353 x10^3/uL (140-400) 315 x10^3/uL (140-400) Neutrophils (%) (Auto) 87 % (31-73) 93 % (31-73) Lymphocytes (%) (Auto) 5 % (24-48) 4 % (24-48) Monocytes (%) (Auto) 5 % (0-9) 3 % (0-9) Eosinophils (%) (Auto) 2 % (0-3) 0 % (0-3) Basophils (%) (Auto) 1 % (0-3) 1 % (0-3) Neutrophils # (Auto) 11.4 x10^3/uL (1.8-7.7) 10.9 x10^3/uL (1.8-7.7) Lymphocytes # (Auto) 0.7 x10^3/uL (1.0-4.8) 0.5 x10^3/uL (1.0-4.8) Monocytes # (Auto) 0.7 x10^3/uL (0.0-1.1) 0.3 x10^3/uL (0.0-1.1) Eosinophils # (Auto) 0.2 x10^3/uL (0.0-0.7) 0.0 x10^3/uL (0.0-0.7) Basophils # (Auto) 0.1 x10^3/uL (0.0-0.2) 0.1 x10^3/uL (0.0-0.2) Segmented Neutrophils % 89 % (35-66) Lymphocytes % 6 % (24-48) Atypical Lymphocytes % (Manual) 1 % (0-0) Monocytes % 3 % (0-10) Eosinophils % 1 % (0-5) Platelet Estimate Adequate (ADEQUATE) Giant Platelets Occ Polychromasia Slight Hypochromasia Slight Anisocytosis Mod Ovalocytes Few Sodium Level 135 mmol/L (136-145) 134 mmol/L (136-145) Potassium Level 4.2 mmol/L (3.5-5.1) 5.1 mmol/L (3.5-5.1) Chloride Level 100 mmol/L (98-107) 99 mmol/L (98-107) Carbon Dioxide Level 27 mmol/L (21-32) 27 mmol/L (21-32) Anion Gap 8 (6-14) 8 (6-14) Blood Urea Nitrogen 11 mg/dL (7-20) 11 mg/dL (7-20) Creatinine 0.8 mg/dL (0.6-1.0) 0.9 mg/dL (0.6-1.0) Estimated GFR (Cockcroft-Gault) 70.3 61.4 BUN/Creatinine Ratio 14 (6-20) 12 (6-20) Glucose Level 220 mg/dL (70-99) 309 mg/dL (70-99) Calcium Level 9.0 mg/dL (8.5-10.1) 8.4 mg/dL (8.5-10.1) Magnesium Level 1.8 mg/dL (1.8-2.4) Total Bilirubin 0.9 mg/dL (0.2-1.0) 0.9 mg/dL (0.2-1.0) Aspartate Amino Transf (AST/SGOT) 28 U/L (15-37) 15 U/L (15-37) Alanine Aminotransferase (ALT/SGPT) 13 U/L (14-59) 15 U/L (14-59) Alkaline Phosphatase 105 U/L (46-116) 93 U/L (46-116) Troponin I Quantitative < 0.017 ng/mL (0.000-0.055) Total Protein 7.4 g/dL (6.4-8.2) 6.3 g/dL (6.4-8.2) Albumin 3.4 g/dL (3.4-5.0) 2.8 g/dL (3.4-5.0) Albumin/Globulin Ratio 0.9 (1.0-1.7) 0.8 (1.0-1.7) O2 Saturation 96 % (92-99) Arterial Blood pH 7.37 (7.35-7.45) Arterial Blood pH (Temp corrected) 7.37 Arterial Blood pCO2 at Patient Temp 43 mmHg (35-46) Arterial Blood pCO2 (Temp correct) 43 mmHg Arterial Blood pO2 at Patient Temp 90 mmHg (65-108) Arterial Blood pO2 (Temp corrected) 90 mmHg Arterial Blood HCO3 24 mmol/L (21-28) Arterial Blood Base Excess -1 mmol/L (-3-3) FiO2 38 Glucose (Fingerstick) 276 mg/dL (70-99) Objective Assessment pt seen, consult dictated Plan Plan of Care // MONSE CARPENTER MD February 24, 2020 10:28
--- NOTE | 2020-02-24 10:50 | HP ---
ADMIT DATE: 02/24/2020 CHIEF COMPLAINT: Nausea, vomiting, and shortness of breath. HISTORY OF PRESENT ILLNESS: The patient is a pleasant 74-year-old female who states she was recently tested for COVID-19 and was positive. Now, she has nausea, vomiting, and diarrhea. She has some associated dizziness. This has been occurring off and on for a few days, worse with moving, better with sitting still. She gets fatigued easily. Her dizziness worsens with change in position. She has underlying COPD, but states her shortness of breath is worse. While in the ER, she is noted to have a low-grade temperature of 100.5. She also has a mild white count elevation. Chest x-ray is showing a possible atypical pneumonia. I discussed the case with ER physician. We are going to admit the patient and consult Infectious Disease and Cardiology. PAST MEDICAL HISTORY: B12 deficiency, hypertension, hyperlipidemia, AFib, valvular heart disease, CHF, cardiomegaly, COPD, allergic rhinitis, and diabetes. ALLERGIES: FEXOFENADINE. FAMILY HISTORY: Coronary artery disease. SOCIAL HISTORY: She quit smoking, no drinking or drugs. MEDICATIONS: Reviewed, please refer to the MRAD. REVIEW OF SYSTEMS: GENERAL: No history of weight change or fevers. She complains of weakness. SKIN: No bruising, hair changes or rashes. EYES: No blurred, double or loss of vision. NOSE AND THROAT: No history of nosebleeds, hoarseness or sore throat. HEART: No history of palpitations, chest pain or shortness of breath on exertion. LUNGS: Denies cough, hemoptysis, wheezing or shortness of breath. GASTROINTESTINAL: She complains of nausea, vomiting, and diarrhea. GENITOURINARY: No history of frequency, urgency, hesitancy or nocturia. NEUROLOGIC: She complains of dizziness. Denies any history of numbness, tingling, or tremors. PSYCHIATRIC: No history of panic, anxiety or depression. ENDOCRINE: No history of heat or cold intolerance, polyuria or polydipsia. EXTREMITIES: Denies muscle weakness, joint pain, pain on walking or stiffness. PHYSICAL EXAMINATION: VITALS: Within normal limits and are stable. GENERAL: She is quite depressed and weak. HEENT: Normal cephalic atraumatic, external auditory canals are patent EYES: Extraocular muscles are intact, pupils are equally round and reactive to light and accommodation MUSCULOSKELETAL: Well developed, well nourished, good range of motion ENDOCRINE: No thyromegaly was palpated LYMPHATICS: No cervical chain or axillary nodes were noted HEMATOPOIETIC: No bruising NECK: Supple, no JVD, no thyromegaly was noted. LUNGS: She has decreased breath sounds with some crackles. HEART: RRR, S1, S2 present. Peripheral pulses intact, no obvious murmurs were noted. ABDOMEN: Soft, nontender. Positive bowel sounds no organomegaly, normal bowel sounds. EXTREMITIES: Without any cyanosis, clubbing, or edema. Pedal pulses intact, Homans sign is negative. NEUROLOGIC: She is extremely weak, does not move much. PSYCHIATRIC: Normal affect, normal mood. Stable. SKIN: No ulcerations or rashes, good skin turgor, no jaundice. VASCULAR: Good capillary refill, neurovascular bundle appears to be intact. LABORATORY DATA: White count 13, hemoglobin 11.7, and platelets 353. Electrolytes: Sodium 135, potassium 5.1, chloride 99, bicarbonate 27, BUN 11, creatinine 0.9, and glucose 309. Troponin is 0. Chest x-ray shows possible viral pneumonia or some other atypical infection and she also has some cardiomegaly. ASSESSMENT AND PLAN: Nausea, vomiting, diarrhea, abnormal chest x-ray, recent COVID-19 in an elderly female with multiple comorbidities. The patient is being admitted. We will consult Cardiology, consult Infectious Disease. Home meds, DVT prophylaxis. Full code. Trend labs, cardiac monitoring, IV Rocephin, IV azithromycin, scopolamine patch. O2 per nasal cannula. DuoNebs, p.r.n. Zofran, and TSH. PROGNOSIS: Guarded. NANCY MAHONEY DO DR: ALEX/janett JOB#: [id number] / [id number]
[2020-02-24 11:09] LABS: CHOLESTEROL/HDL RATIO 3.1
--- NOTE | 2020-02-24 11:09 | CONS ---
DATE OF CONSULTATION: 02/24/2020 REQUESTING PHYSICIAN: Dr. Anderson. REASON FOR CONSULTATION: Fever and leukocytosis. HISTORY OF PRESENT ILLNESS: This is a 74-year-old female who is from assisted care. The patient apparently had COVID-19 positive almost a month ago or so. The patient was fine then, she did not require anything and now she started having some nausea, vomiting, diarrhea, dizziness, shortness of breath, found to be hypoxic and bilateral pulmonary infiltrates. The patient had a fever up to 100.5 when she came in, white count 13,000, and hypertensive urgency. Chest x-ray showed bilateral diffuse interstitial infiltrate and cardiomegaly. The patient received Rocephin and azithromycin 1 dose each from the ER and now on no antibiotics. The patient is saying her breathing is okay, although she is normally not on oxygen. She is requiring 3 L of oxygen. Denies now any nausea, vomiting, or diarrhea which she has had, she says. Denies any abdominal pain, urinary symptoms, headache, or visual symptoms. PAST MEDICAL HISTORY: Positive for congestive heart failure, COPD, diabetes, hypertension, obesity, hyperlipidemia, AFib, and anxiety disorder. PAST SURGICAL HISTORY: She has had appendicectomy, cholecystectomy, and hysterectomy in the past. SOCIAL HISTORY: Negative for smoking. Negative for alcohol use or drug use. ALLERGIES: No known drug allergies. CURRENT MEDICATIONS: Reviewed. REVIEW OF SYSTEMS: As per HPI, all other systems reviewed are negative. PHYSICAL EXAMINATION: GENERAL: Alert, oriented female, not in any distress. VITAL SIGNS: Stable with temperature 97.5. HEENT: Both pupils are round and reacting. No conjunctival lesion, no lesion in the mouth. NECK: Supple, no JVP, no lymphadenopathy. LUNGS: Clear. HEART: S1, S2 regular. ABDOMEN: Benign. EXTREMITIES: No edema or cyanosis. SKIN: Unremarkable. NEUROLOGIC: The patient is alert, awake, and appropriate. No focal neurologic deficit. LABORATORY DATA: White count is down to 11.7. Platelets are normal. BUN and creatinine are normal. Chest x-ray, as I mentioned in HPI. IMPRESSION: 1. Bilateral pulmonary infiltrates. This could be secondary bacterial infection. She has been recovering from COVID. I discussed it could be just congestive heart failure from accelerated hypertension. 2. Recent COVID-19 positive, exact time of positivity is unknown. 3. Fever. 4. Leukocytosis. 5. Hypoxemia. 6. Diabetes. 7. Accelerated hypertension. RECOMMENDATIONS: Start Zyvox and Zosyn. We will get blood cultures, sputum culture, supportive care, and we will continue to follow. Thank you very much, Dr. Anderson, for giving me the opportunity to participate in this patient's care. MONSE CARPENTER MD DR: LANE/janett JOB#: [id number] / [id number]
[2020-02-24] MEDS ORDERED: LOPERAMIDE 2 MG CAPSULE PO PRN (12:45)
[2020-02-24] MEDS: hydrALAZINE 25 MG TABLET PO SCH ×2 (14:16→20:25)
[2020-02-24] MEDS: PIPERACILLIN/TAZOBACTAM 3.375 GM in IV NORMAL SALINE 50ML 50 ML IV SCH ×2 (14:20→17:26)
[2020-02-24] MEDS ORDERED: WARFARIN 4 MG TABLET. PO ONE (16:00)
[2020-02-24] MEDS ORDERED: WARFARIN 3 MG TABLET. PO SCH (16:00)
[2020-02-24] MEDS ORDERED: FUROSEMIDE 40 MG/4 ML VIAL. IVP ONE (17:00)
[2020-02-24 17:18] LABS: DIG 0.5 ng/mL (0.9-2.0)
[2020-02-24] MEDS: LISINOPRIL 10 MG TABLET PO SCH (17:25)
[2020-02-24] MEDS: DIGOXIN 125 MCG TABLET. PO SCH (17:26)
[2020-02-24] MEDS: INSULIN LISPRO 300 UNITS/3 ML VIAL. SQ SCH (17:28)
[2020-02-24] MEDS: METOPROLOL TART IMMED RELEASE 50 MG TABLET. PO SCH (20:26)
[2020-02-24] MEDS: ATORVASTATIN CALCIUM 20 MG TABLET PO SCH (20:26)
[2020-02-25 03:23] VITALS: BP 164/81
[2020-02-25 05:41] LABS: PROTHROMBIN TIME PATIENT 15.8 SEC (11.7-14.0)
[2020-02-25] MEDS: PIPERACILLIN/TAZOBACTAM 3.375 GM in IV NORMAL SALINE 50ML 50 ML IV SCH ×6 (06:17→23:53)
[2020-02-25 07:00] VITALS: BP 189/93
[2020-02-25] MEDS: LISINOPRIL 10 MG TABLET PO SCH (08:24)
[2020-02-25] MEDS: METOPROLOL TART IMMED RELEASE 50 MG TABLET. PO SCH ×2 (08:24→21:55)
[2020-02-25] MEDS: DIGOXIN 125 MCG TABLET. PO SCH (08:25)
[2020-02-25] MEDS: buPROPion SR 150 MG TABLET.SA PO SCH (08:25)
[2020-02-25] MEDS: CETIRIZINE HCL 10 MG TABLET. PO SCH (08:25)
[2020-02-25] MEDS: hydrALAZINE 25 MG TABLET PO SCH ×3 (08:25→21:56)
[2020-02-25] MEDS: ASPIRIN ENTERIC COATED 81 MG TABLET.DR. PO SCH (08:26)
[2020-02-25] MEDS: FLUTICASONE 50MCG/NASAL SPRAY 16GM BOTTLE. NS SCH (08:26)
[2020-02-25] MEDS: INSULIN LISPRO 300 UNITS/3 ML VIAL. SQ SCH ×3 (08:27→17:23)
[2020-02-25] MEDS: FUROSEMIDE 40 MG TABLET. PO SCH (08:28)
[2020-02-25] MEDS ORDERED: DIGOXIN 125 MCG TABLET. PO SCH (09:00)
[2020-02-25] MEDS ORDERED: LISINOPRIL 10 MG TABLET PO SCH (09:00)
[2020-02-25] MEDS ORDERED: WARFARIN 1 MG TABLET. PO SCH (09:00)
--- NOTE | 2020-02-25 09:05 | PDOC ---
Infectious Disease Note Subjective Subjective pt is feeling better ROS ROS no n/v/d/sob/fever Vital Sign Vital Signs Vital Signs Date Time Temp Pulse Resp B/P (MAP) Pulse Ox O2 Delivery O2 Flow Rate FiO2 02/25/20 08:25 78 189/93 02/25/20 07:00 97.9 20 96 Nasal Cannula 4.0 97.9 Physical Exam PHYSICAL EXAM GENERAL: Alert, oriented female, not in any distress. VITAL SIGNS: Stable HEENT: Both pupils are round and reacting. No conjunctival lesion, no lesion in the mouth. NECK: Supple, no JVP, no lymphadenopathy. LUNGS: Clear. HEART: S1, S2 regular. ABDOMEN: Benign. EXTREMITIES: No edema or cyanosis. SKIN: Unremarkable. NEUROLOGIC: The patient is alert, awake, and appropriate. No focal neurologic deficit. Labs Lab Laboratory Tests Test 02/24/20 11:25 02/24/20 12:18 02/24/20 16:08 02/24/20 21:24 Prothrombin Time 16.0 SEC (11.7-14.0) Prothromb Time International Ratio 1.3 (0.8-1.1) Procalcitonin 0.13 ng/mL (0.00-0.10) Digoxin Level 0.5 ng/mL (0.9-2.0) Digoxin Last Dose Date 02/23/20 Digoxin Last Dose Time 0900 Glucose (Fingerstick) 243 mg/dL (70-99) 241 mg/dL (70-99) 212 mg/dL (70-99) Test 02/25/20 04:30 02/25/20 07:07 Prothrombin Time 15.8 SEC (11.7-14.0) Prothromb Time International Ratio 1.3 (0.8-1.1) Glucose (Fingerstick) 189 mg/dL (70-99) Objective Assessment IMPRESSION: 1. Bilateral pulmonary infiltrates. This could be secondary bacterial infection. She has been recovering from COVID. I discussed it could be just congestive heart failure from accelerated hypertension. 2. Recent COVID-19 positive, exact time of positivity is unknown. 3. Fever. 4. Leukocytosis. 5. Hypoxemia. 6. Diabetes. 7. Accelerated hypertension. Plan Plan of Care RECOMMENDATIONS: Zyvox and Zosyn. culture neg so far , supportive care, and we will continue to follow. MONSE CARPENTER MD February 25, 2020 09:05
--- NOTE | 2020-02-25 09:31 | PDOC ---
PROGRESS NOTES Chief Complaint Chief Complaint A/P: Cough - with shortness of breath. diffuse wheezing not initially responsive to nebulizers, will treat inpatient for acute bronchitis/COPD exacerbation. IV steroids, nebs Diarrhea - will monitor, psyllium HTN - cont meds Hyperlipidemia - cont statin AFIB - on BB and coumadin, will continue, monitor INR CHF - unknown if ischemic cardiomyopathy, seems compensated currently Acute exacerbation of COPD - as above Depression - cont meds DM2 - basal bolus plus insulin while inpatient FEN - ADA diet PPX - lovenox FULL CODE Dispo - inpatient 2 midnights. History of Present Illness History of Present Illness Ms Yang is a 74 yo F resident of [facility] w/ PMHx HTN, Hyperlipidemia, AFIB, valvular insufficiency, CHF, cardiomyopathy, COPD, Depression, DM2 who p/w cough, shortness of breath, diarrhea for the last 3-4 days. was recently tested for COVID-19 and was positive. Now, she has nausea, vomiting, and diarrhea. She has some associated dizziness. This has been occurring off and on for a few days, worse with moving, better with sitting still. She gets fatigued easily. Her dizziness worsens with change in position. She has underlying COPD, but states her shortness of breath is worse. While in the ER, she is noted to have a low-grade temperature of 100.5. She also has a mild white count elevation 13K. Chest x-ray is showing a possible atypical pneumonia. Was called for admission for further treatment In ED noted in afib, normal troponin. CXR with no acute findings. BNP 1212, K 5. 2, Cr 1.1, glucose 173. Admitted for further care of Hypertensive urgency. Chest x-ray showed bilateral diffuse interstitial infiltrate and cardiomegaly. The patient received Rocephin and azithromycin 1 dose each from the ER. States her breathing is okay, although she is normally not on oxygen. She is requiring 3 L of oxygen. Denies now any nausea, vomiting, or diarrhea which she has had, she says. Denies any abdominal pain, urinary symptoms, headache, or visual symptoms. Vitals Vitals Vital Signs Date Time Temp Pulse Resp B/P (MAP) Pulse Ox O2 Delivery O2 Flow Rate FiO2 02/25/20 08:25 78 189/93 02/25/20 07:00 97.9 20 96 Nasal Cannula 4.0 97.9 Physical Exam Physical Exam GENERAL: Alert, oriented female, not in any distress. VITAL SIGNS: Stable HEENT: Both pupils are round and reacting. No conjunctival lesion, no lesion in the mouth. NECK: Supple, no JVP, no lymphadenopathy. LUNGS: Clear. HEART: S1, S2 regular. ABDOMEN: Benign. EXTREMITIES: No edema or cyanosis. SKIN: Unremarkable. NEUROLOGIC: The patient is alert, awake, and appropriate. No focal neurologic deficit. Lungs: Clear Labs LABS Laboratory Tests Test 02/24/20 11:25 02/24/20 12:18 02/24/20 16:08 02/24/20 21:24 Prothrombin Time 16.0 SEC (11.7-14.0) Prothromb Time International Ratio 1.3 (0.8-1.1) Procalcitonin 0.13 ng/mL (0.00-0.10) Digoxin Level 0.5 ng/mL (0.9-2.0) Digoxin Last Dose Date 02/23/20 Digoxin Last Dose Time 0900 Glucose (Fingerstick) 243 mg/dL (70-99) 241 mg/dL (70-99) 212 mg/dL (70-99) Test 02/25/20 04:30 02/25/20 07:07 Prothrombin Time 15.8 SEC (11.7-14.0) Prothromb Time International Ratio 1.3 (0.8-1.1) Glucose (Fingerstick) 189 mg/dL (70-99) Assessment and Plan Assessmemt and Plan Problems Medical Problems: (1) COVID-19 Status: Acute (2) Hypertensive urgency Status: Acute (3) Pneumonia Status: Acute (4) Vertigo Status: Acute Comment Review of Relevant I have reviewed the following items raman (where applicable) has been applied. Labs Laboratory Tests Test 02/23/20 19:36 02/23/20 22:49 02/24/20 04:45 02/24/20 08:41 White Blood Count 13.1 x10^3/uL (4.0-11.0) 11.7 x10^3/uL (4.0-11.0) Red Blood Count 4.77 x10^6/uL (3.50-5.40) 4.39 x10^6/uL (3.50-5.40) Hemoglobin 11.7 g/dL (12.0-15.5) 10.8 g/dL (12.0-15.5) Hematocrit 37.6 % (36.0-47.0) 34.7 % (36.0-47.0) Mean Corpuscular Volume 79 fL (79-100) 79 fL (79-100) Mean Corpuscular Hemoglobin 25 pg (25-35) 25 pg (25-35) Mean Corpuscular Hemoglobin Concent 31 g/dL (31-37) 31 g/dL (31-37) Red Cell Distribution Width 22.4 % (11.5-14.5) 22.2 % (11.5-14.5) Platelet Count 353 x10^3/uL (140-400) 315 x10^3/uL (140-400) Neutrophils (%) (Auto) 87 % (31-73) 93 % (31-73) Lymphocytes (%) (Auto) 5 % (24-48) 4 % (24-48) Monocytes (%) (Auto) 5 % (0-9) 3 % (0-9) Eosinophils (%) (Auto) 2 % (0-3) 0 % (0-3) Basophils (%) (Auto) 1 % (0-3) 1 % (0-3) Neutrophils # (Auto) 11.4 x10^3/uL (1.8-7.7) 10.9 x10^3/uL (1.8-7.7) Lymphocytes # (Auto) 0.7 x10^3/uL (1.0-4.8) 0.5 x10^3/uL (1.0-4.8) Monocytes # (Auto) 0.7 x10^3/uL (0.0-1.1) 0.3 x10^3/uL (0.0-1.1) Eosinophils # (Auto) 0.2 x10^3/uL (0.0-0.7) 0.0 x10^3/uL (0.0-0.7) Basophils # (Auto) 0.1 x10^3/uL (0.0-0.2) 0.1 x10^3/uL (0.0-0.2) Segmented Neutrophils % 89 % (35-66) Lymphocytes % 6 % (24-48) Atypical Lymphocytes % (Manual) 1 % (0-0) Monocytes % 3 % (0-10) Eosinophils % 1 % (0-5) Platelet Estimate Adequate (ADEQUATE) Giant Platelets Occ Polychromasia Slight Hypochromasia Slight Anisocytosis Mod Ovalocytes Few Sodium Level 135 mmol/L (136-145) 134 mmol/L (136-145) Potassium Level 4.2 mmol/L (3.5-5.1) 5.1 mmol/L (3.5-5.1) Chloride Level 100 mmol/L (98-107) 99 mmol/L (98-107) Carbon Dioxide Level 27 mmol/L (21-32) 27 mmol/L (21-32) Anion Gap 8 (6-14) 8 (6-14) Blood Urea Nitrogen 11 mg/dL (7-20) 11 mg/dL (7-20) Creatinine 0.8 mg/dL (0.6-1.0) 0.9 mg/dL (0.6-1.0) Estimated GFR (Cockcroft-Gault) 70.3 61.4 BUN/Creatinine Ratio 14 (6-20) 12 (6-20) Glucose Level 220 mg/dL (70-99) 309 mg/dL (70-99) Calcium Level 9.0 mg/dL (8.5-10.1) 8.4 mg/dL (8.5-10.1) Magnesium Level 1.8 mg/dL (1.8-2.4) Total Bilirubin 0.9 mg/dL (0.2-1.0) 0.9 mg/dL (0.2-1.0) Aspartate Amino Transf (AST/SGOT) 28 U/L (15-37) 15 U/L (15-37) Alanine Aminotransferase (ALT/SGPT) 13 U/L (14-59) 15 U/L (14-59) Alkaline Phosphatase 105 U/L (46-116) 93 U/L (46-116) Troponin I Quantitative < 0.017 ng/mL (0.000-0.055) Total Protein 7.4 g/dL (6.4-8.2) 6.3 g/dL (6.4-8.2) Albumin 3.4 g/dL (3.4-5.0) 2.8 g/dL (3.4-5.0) Albumin/Globulin Ratio 0.9 (1.0-1.7) 0.8 (1.0-1.7) O2 Saturation 96 % (92-99) Arterial Blood pH 7.37 (7.35-7.45) Arterial Blood pH (Temp corrected) 7.37 Arterial Blood pCO2 at Patient Temp 43 mmHg (35-46) Arterial Blood pCO2 (Temp correct) 43 mmHg Arterial Blood pO2 at Patient Temp 90 mmHg (65-108) Arterial Blood pO2 (Temp corrected) 90 mmHg Arterial Blood HCO3 24 mmol/L (21-28) Arterial Blood Base Excess -1 mmol/L (-3-3) FiO2 38 Triglycerides Level 43 mg/dL (0-150) Cholesterol Level 90 mg/dL (0-200) LDL Cholesterol, Calculated 52 mg/dL (0-100) VLDL Cholesterol, Calculated 9 mg/dL (0-40) Non-HDL Cholesterol Calculated 61 mg/dL (0-129) HDL Cholesterol 29 mg/dL (40-60) Cholesterol/HDL Ratio 3.1 Thyroid Stimulating Hormone (TSH) 0.816 uIU/mL (0.358-3.74) Glucose (Fingerstick) 276 mg/dL (70-99) Test 02/24/20 11:25 02/24/20 12:18 02/24/20 16:08 02/24/20 21:24 Prothrombin Time 16.0 SEC (11.7-14.0) Prothromb Time International Ratio 1.3 (0.8-1.1) Procalcitonin 0.13 ng/mL (0.00-0.10) Digoxin Level 0.5 ng/mL (0.9-2.0) Digoxin Last Dose Date 02/23/20 Digoxin Last Dose Time 0900 Glucose (Fingerstick) 243 mg/dL (70-99) 241 mg/dL (70-99) 212 mg/dL (70-99) Test 02/25/20 04:30 02/25/20 07:07 Prothrombin Time 15.8 SEC (11.7-14.0) Prothromb Time International Ratio 1.3 (0.8-1.1) Glucose (Fingerstick) 189 mg/dL (70-99) Laboratory Tests Test 5/11/20 11:25 02/24/20 12:18 02/24/20 16:08 02/24/20 21:24 Prothrombin Time 16.0 SEC (11.7-14.0) Prothromb Time International Ratio 1.3 (0.8-1.1) Procalcitonin 0.13 ng/mL (0.00-0.10) Digoxin Level 0.5 ng/mL (0.9-2.0) Digoxin Last Dose Date 02/23/20 Digoxin Last Dose Time 0900 Glucose (Fingerstick) 243 mg/dL (70-99) 241 mg/dL (70-99) 212 mg/dL (70-99) Test 02/25/20 04:30 02/25/20 07:07 Prothrombin Time 15.8 SEC (11.7-14.0) Prothromb Time International Ratio 1.3 (0.8-1.1) Glucose (Fingerstick) 189 mg/dL (70-99) Medications Current Medications Ondansetron HCl (Zofran) 4 mg 1X ONCE IVP Last administered on 02/23/20at 19:43; Start 02/23/20 at 19:45; Stop 02/23/20 at 19:46; Status DC Meclizine HCl (Antivert) 25 mg 1X ONCE PO Last administered on 02/23/20at 19:44; Start 02/23/20 at 19:45; Stop 02/23/20 at 19:46; Status DC Sodium Chloride 1,000 ml @ 1,000 mls/hr Q1H IV Last administered on 02/23/20at 20:14; Start 02/23/20 at 19:28; Stop 02/23/20 at 20:27; Status DC Lorazepam (Ativan Inj) 1 mg 1X ONCE IVP Last administered on 02/23/20at 19:44; Start 02/23/20 at 19:45; Stop 02/23/20 at 19:46; Status DC Hydralazine HCl (Apresoline Inj) 10 mg 1X ONCE IVP Last administered on 02/23/20at 20:14; Start 02/23/20 at 20:00; Stop 02/23/20 at 20:03; Status DC Scopolamine (Transderm-Scop) 1 patch 1X ONCE TD Last administered on 02/23/20at 22:21; Start 02/23/20 at 22:30; Stop 02/23/20 at 22:31; Status DC Ceftriaxone Sodium (Rocephin) 1 gm 1X ONCE IVP Last administered on 02/23/20at 22:27; Start 02/23/20 at 22:30; Stop 02/23/20 at 22:31; Status DC Azithromycin (Zithromax) 500 mg 1X ONCE PO Last administered on 02/23/20at 22:26; Start 02/23/20 at 22:30; Stop 02/23/20 at 22:31; Status DC Hydralazine HCl (Apresoline Inj) 10 mg 1X ONCE IVP Last administered on 02/23/20at 23:12; Start 02/23/20 at 23:30; Stop 02/23/20 at 23:31; Status DC Ondansetron HCl (Zofran) 4 mg PRN Q8HRS PRN IV NAUSEA/VOMITING 1ST CHOICE; Start 02/23/20 at 23:00; Stop 02/24/20 at 22:59; Status DC Acetaminophen (Tylenol) 650 mg PRN Q4HRS PRN PO FEVER > 100.3'F; Start 02/23/20 at 23:00; Stop 02/24/20 at 12:22; Status DC Albuterol/ Ipratropium (Duoneb) 3 ml RTQID NEB ; Start 02/24/20 at 08:00; Stop 02/24/20 at 09:21; Status DC Albuterol/ Ipratropium (Duoneb) 3 ml 1X ONCE NEB ; Start 02/23/20 at 23:45; Stop 02/23/20 at 23:46; Status DC Clonidine HCl (Catapres) 0.2 mg 1X ONCE PO Last administered on 02/24/20at 00:47; Start 02/24/20 at 01:00; Stop 02/24/20 at 01:01; Status DC Albuterol/ Ipratropium (Duoneb) 3 ml PRN Q4HRS PRN NEB SHORTNESS OF BREATH; Start 02/24/20 at 09:30; Stop 02/25/20 at 09:29 Hydralazine HCl (Apresoline Inj) 10 mg PRN Q4HRS PRN IVP ELEVATED BP, SEE COMMENTS; Start 02/24/20 at 09:45 Piperacillin Sod/ Tazobactam Sod 3.375 gm/Sodium Chloride 50 ml @ 100 mls/hr Q6HRS IV Last administered on 02/25/20 06:17; Start 02/24/20 at 12:00 Linezolid/Dextrose 300 ml @ 300 mls/hr Q12HR IV Last administered on 02/25/20 08:26; Start 02/24/20 at 11:00 Acetaminophen (Tylenol) 650 mg PRN Q6HRS PRN PO HEADACHE/TEMP; Start 02/24/20 at 12:15 Aspirin (Ecotrin) 81 mg DAILY PO Last administered on 02/25/20 08:26; Start 02/25/20 at 09:00 Atorvastatin Calcium (Lipitor) 20 mg QHS PO Last administered on 02/24/20 20:26; Start 02/24/20 at 21:00 Bupropion HCl (Wellbutrin Sr) 150 mg DAILY PO Last administered on 02/25/20 08:25; Start 02/25/20 at 09:00 Digoxin (Lanoxin) 125 mcg DAILY PO ; Start 02/25/20 at 09:00; Stop 02/24/20 at 16:58; Status DC Diltiazem HCl (Cardizem 24hr Cd) 300 mg DAILY PO ; Start 02/25/20 at 09:00; Stop 02/24/20 at 16:58; Status DC Ergocalciferol (Vitamin D2) 50,000 unit QSA PO ; Start 02/29/20 at 16:00 Fluticasone Propionate (Flonase) 2 spray DAILY NS Last administered on 02/25/20 08:26; Start 02/25/20 at 09:00 Furosemide (Lasix) 40 mg DAILY PO Last administered on 02/25/20 08:28; Start 02/25/20 at 09:00 Hydralazine HCl (Apresoline) 25 mg TID PO Last administered on 02/25/20 08:25; Start 02/24/20 at 14:00 Lisinopril (Prinivil) 10 mg DAILY PO ; Start 02/25/20 at 09:00; Stop 02/24/20 at 16:58; Status DC Metoprolol Tartrate (Lopressor) 75 mg BID PO Last administered on 02/25/20at 08:24; Start 02/24/20 at 21:00 Warfarin Sodium (Coumadin) 0.5 mg DAILY PO ; Start 02/25/20 at 09:00; Stop 02/24/20 at 13:04; Status DC Warfarin Sodium (Coumadin) 6 mg DAILY16 PO ; Start 02/24/20 at 16:00; Status UNV Insulin Human Lispro (HumaLOG) 15 units TIDWMEALS SQ Last administered on 02/25/20at 08:27; Start 02/24/20 at 17:00 Loperamide HCl (Imodium) 2 mg PRN Q15MIN PRN PO DIARRHEA; Start 02/24/20 at 12:45 Cetirizine HCl (ZyrTEC) 10 mg DAILY PO Last administered on 02/25/20at 08:25; Start 02/25/20 at 09:00 Warfarin Sodium (Coumadin Per Pharmacy) 1 each PRN DAILY PRN MC SEE COMMENTS; Start 02/24/20 at 12:45 Warfarin Sodium (Coumadin) 4 mg 1X WARF ONCE PO Last administered on 02/24/20at 17:27; Start 02/24/20 at 16:00; Stop 02/24/20 at 16:01; Status DC Furosemide (Lasix) 40 mg 1X ONCE IVP Last administered on 02/24/20at 17:25; Start 02/24/20 at 17:00; Stop 02/24/20 at 17:01; Status DC Digoxin (Lanoxin) 125 mcg DAILY PO Last administered on 02/25/20at 08:25; Start 02/24/20 at 17:00 Diltiazem HCl (Cardizem 24hr Cd) 300 mg DAILY PO Last administered on 02/25/20at 08:25; Start 02/24/20 at 17:00 Lisinopril (Prinivil) 10 mg DAILY PO Last administered on 02/25/20at 08:24; Start 02/24/20 at 17:00 Active Scripts Active Atorvastatin Calcium 20 Mg Tablet 20 Mg PO QHS 30 Days Lisinopril 10 Mg Tablet 10 Mg PO DAILY 30 Days Tylenol (Acetaminophen) 325 Mg Tablet 650 Mg PO PRN Q6HRS PRN 30 Days Coumadin (Warfarin Sodium) 3 Mg Tablet 6 Mg PO DAILY16 30 Days Diltiazem 24HR Cd (Diltiazem Hcl) 300 Mg Cap.er.24h 300 Mg PO DAILY 30 Days Lanoxin (Digoxin) 125 Mcg Tablet 125 Mcg PO DAILY 30 Days [Albuterol Sulfate] 2.5 MG/3 ML Nebu 2.5 Mg NEB PRN Q4HRS PRN Reported Ventolin Hfa Inhaler (Albuterol Sulfate) 18 Gm Hfa.aer.ad 2 Puff INH Q4HRS Combivent Respimat Inhal (Ipratropium/Albuterol Sulfate) 4 Gm Aer.w.adap 2 Inh IH QID Loratadine 10 Mg Tablet 10 Mg PO DAILY Loperamide (Loperamide Hcl) 2 Mg Tablet 2 Mg PO PRN Q4HRS PRN Furosemide 40 Mg Tablet 40 Mg PO DAILY Metoprolol Tartrate 50 Mg Tablet 75 Mg PO BID Warfarin Sodium 1 Mg Tablet 0.5 Mg PO DAILY Hydralazine Hcl 25 Mg Tablet 1 Tab PO TID Wellbutrin Sr (Bupropion Hcl) 150 Mg Tablet.er 150 Mg PO DAILY Novolog (Insulin Aspart) 100 Unit/1 Ml Cartridge 15 Unit SQ TID Aspirin Ec (Aspirin) 81 Mg Tablet.dr 1 Tab PO DAILY Fluticasone Propionate Nasal [place] (Fluticasone Propionate) 16 Gm [place].susp 2 [place] NS DAILY LAST DOSE GIVEN: DATE: 10-13-15 TIME: 9 am NEXT DOSE DUE: DATE: 10-14-15 TIME: 9 am Vitamin D2 (Ergocalciferol (Vitamin D2)) 50,000 Unit Capsule 1 Cap PO QSA Vitals/I & O Vital Sign - Last 24 Hours 02/24/20 02/24/20 02/24/20 02/24/20 10:00 11:00 14:16 15:00 Temp 98.9 98.2 98.9 98.2 Pulse 77 68 68 72 Resp 16 20 20 B/P (MAP) 183/91 (121) 167/77 (107) 167/77 184/70 (108) Pulse Ox 100 94 99 O2 Delivery Nasal Cannula Nasal Cannula Nasal Cannula O2 Flow Rate 4.0 4.0 4.0 02/24/20 02/24/20 02/24/20 02/24/20 17:25 17:26 17:26 19:00 Temp 98.0 98.0 Pulse 72 72 72 72 Resp 20 B/P (MAP) 184/70 184/70 184/70 196/93 (127) Pulse Ox 99 O2 Delivery Nasal Cannula O2 Flow Rate 4.0 02/24/20 02/24/20 02/24/20 02/24/20 20:15 20:25 20:26 22:26 Temp 97.0 97.0 Pulse 88 72 68 Resp 20 B/P (MAP) 193/96 193/96 193/96 (128) Pulse Ox 94 O2 Delivery Nasal Cannula Nasal Cannula O2 Flow Rate 4.0 4.0 02/24/20 02/25/20 02/25/20 02/25/20 22:28 03:23 07:00 08:24 Temp 97.8 97.8 97.9 97.8 97.8 97.9 Pulse 68 68 78 78 Resp 20 20 B/P (MAP) 142/82 (102) 164/81 (108) 189/93 (125) 189/93 Pulse Ox 97 98 96 O2 Delivery Nasal Cannula Nasal Cannula Nasal Cannula O2 Flow Rate 4.0 4.0 4.0 02/25/20 02/25/20 02/25/20 02/25/20 08:24 08:25 08:25 08:25 Pulse 78 78 78 78 B/P (MAP) 189/93 189/93 189/93 189/93 Intake and Output 02/24/20 02/24/20 02/25/20 15:00 23:00 07:00 Intake Total 200 ml 300 ml 50 ml Output Total 700 ml Balance 200 ml 300 ml -650 ml SHARRON GRUBBS MD February 25, 2020 09:31
[2020-02-25 11:00] VITALS: BP 156/66
--- NOTE | 2020-02-25 11:04 | PDOC ---
CARDIO Progress Notes Date and Time Date of Service 02/25/2020 Time of Evaluation 1050 Subjective Subjective: No Chest Pain, No shortness of breath, No Palpitations Vitals Vitals Vital Signs Date Time Temp Pulse Resp B/P (MAP) Pulse Ox O2 Delivery O2 Flow Rate FiO2 02/25/20 08:25 78 189/93 02/25/20 08:00 Nasal Cannula 4.0 02/25/20 07:00 97.9 20 96 97.9 Weight Weight [ ] Input and Output Intake and Output Intake and Output 02/25/20 07:00 Intake Total 550 ml Output Total 700 ml Balance -150 ml Intake Oral 200 ml IV Total 350 ml Output Urine Total 700 ml # Voids 1 Laboratory Labs Laboratory Tests Test 02/24/20 11:25 02/24/20 12:18 02/24/20 16:08 02/24/20 21:24 Prothrombin Time 16.0 SEC (11.7-14.0) Prothromb Time International Ratio 1.3 (0.8-1.1) Procalcitonin 0.13 ng/mL (0.00-0.10) Digoxin Level 0.5 ng/mL (0.9-2.0) Digoxin Last Dose Date 02/23/20 Digoxin Last Dose Time 0900 Glucose (Fingerstick) 243 mg/dL (70-99) 241 mg/dL (70-99) 212 mg/dL (70-99) Test 02/25/20 04:30 02/25/20 07:07 Prothrombin Time 15.8 SEC (11.7-14.0) Prothromb Time International Ratio 1.3 (0.8-1.1) Glucose (Fingerstick) 189 mg/dL (70-99) Microbiology Micro Microbiology 02/23/20 Blood Culture - Preliminary, Resulted NO GROWTH AFTER 1 DAY Physical Exam HEENT: Neck Supple W Full Motion Chest: Symmetric LUNGS: Other (diminished) Heart: irregularly irregular (AFIB rate controlled) Extremities: No Calf Tenderness Neurology: alert, oriented, follow commands Other Exams Labs reviewed. Discussed with RN. Sun but with periods of confusion. Assessment Assessment 1. Dizziness, nausea/vomiting: none further. Potentially from unconntrolled HTN. 2. Hypertensive urgency; remains labile 3. Acute on chronic diastolic CHF; Recent echo with preserved LV systolic function, compensated 4. PAFIB vs chronic:; persistent AFIB with controlled rate. On chronic warfarin therapy 5. Hyperlipidemia; statin therapy 6. Diabetes, II 7. Recent COVID + with associated COPD; unknown date Recommendations 1. Continue current rate controlling agents. INR 1.3 continue woumadin therapy for stroke prevention, adjust per protocol 2. Lasix therapy. 3. BP remains labile. Could increase home hydralazine and/or lisinopril if remains labile. Hydralazine IV PRN 4. Consider outpatient cardioversion 5. Supportive care [employer] February 25, 2020 11:04
[2020-02-25] MEDS ORDERED: ONDANSETRON PF 4 MG/2 ML VIAL. IVP PRN (11:30)
--- NOTE | 2020-02-25 12:46 | NUR ---
Pharmacy Warfarin Dosing Note S:Pharmacy consulted to assist with anticoagulation therapy with target INR: 2 -3 O:MICHAELA COOPER is a 74 year old F with Atrial Fibrillation LABS: Last INR: 1.3 Last HGB: 10.8 Last HCT: 34.7 Last PLT: 315 Last dose of 4 mg given on 02/24/20 at 1727 A:INR of 1.3 is below desired range. Target range for this patient is: 2 -3 P: Warfarin dose: 6 mg Today at 1600 Bridge Therapy: None Next INR due tomorrow Pharmacy anticoagulation service will continue to follow. Zeny Meraz RPH, 02/25/20 1626
--- NOTE | 2020-02-25 14:26 | NUR ---
SS following up with discharge planning. SS reviewed pt chart and discussed with pt RN. Pt is currently requiring oxygen. Per [facility] pt did not have oxygen at facility. Pt is COVID19 positive. Pt weak per RN and will need PT/OT. SS will continue to follow for discharge planning.
[2020-02-25 14:29] VITALS: BP 169/79
[2020-02-25] MEDS ORDERED: WARFARIN 3 MG TABLET. PO ONE (16:00)
--- NOTE | 2020-02-25 16:07 | NUR ---
SS following up with discharge planning. SS received notification that pt was current with [facility], ; fax [phone]. SS will continue to follow for discharge planning.
[2020-02-25 19:10] VITALS: BP 184/79
[2020-02-25] MEDS: ATORVASTATIN CALCIUM 20 MG TABLET PO SCH (21:54)
[2020-02-25] MEDS: LACTOBACILLUS RHAMNOSUS GG 1 CAPSULE. PO SCH (21:54)
[2020-02-25 23:15] VITALS: BP 162/65
[2020-02-26 03:20] VITALS: BP 161/72
[2020-02-26 04:18] LABS: PROTHROMBIN TIME PATIENT 16.8 SEC (11.7-14.0)
[2020-02-26] MEDS: PIPERACILLIN/TAZOBACTAM 3.375 GM in IV NORMAL SALINE 50ML 50 ML IV SCH (05:53)
[2020-02-26 07:00] VITALS: BP 173/81
[2020-02-26] MEDS: ACETAMINOPHEN 325 MG TABLET. PO PRN ×2 (07:20→21:38)
--- NOTE | 2020-02-26 08:08 | PDOC ---
PROGRESS NOTES Chief Complaint Chief Complaint A/P: Cough - with shortness of breath. diffuse wheezing not initially responsive to nebulizers, will treat inpatient for acute bronchitis/COPD exacerbation. IV steroids, nebs Diarrhea - will monitor, psyllium HTN - cont meds Hyperlipidemia - cont statin AFIB - on BB and coumadin, will continue, monitor INR CHF - unknown if ischemic cardiomyopathy, seems compensated currently Acute exacerbation of COPD - as above Depression - cont meds DM2 - basal bolus plus insulin while inpatient Visual blurring - likely glaucoma, difficult to test pressure here, will trial on lananoprost (prostaglandin) daily FEN - ADA diet PPX - lovenox FULL CODE Dispo - inpatient 2 midnights. History of Present Illness History of Present Illness Ms Yang is a 74 yo F resident of [facility] w/ PMHx HTN, Hyperlipidemia, AFIB, valvular insufficiency, CHF, cardiomyopathy, COPD, Depression, DM2 who p/w cough, shortness of breath, diarrhea for the last 3-4 days. was recently tested for COVID-19 and was positive. Now, she has nausea, vomiting, and diarrhea. She has some associated dizziness. This has been occurring off and on for a few days, worse with moving, better with sitting still. She gets fatigued easily. Her dizziness worsens with change in position. She has underlying COPD, but states her shortness of breath is worse. While in the ER, she is noted to have a low-grade temperature of 100.5. She also has a mild white count elevation 13K. Chest x-ray is showing a possible atypical pneumonia. Was called for admission for further treatment In ED noted in afib, normal troponin. CXR with no acute findings. BNP 1212, K 5.2, Cr 1.1, glucose 173. Admitted for further care of Hypertensive urgency. Chest x-ray showed bilateral diffuse interstitial infiltrate and cardiomegaly. The patient received Rocephin and azithromycin 1 dose each from the ER. 02/24: States her breathing is okay, although she is normally not on oxygen. She is requiring 3 L of oxygen. Denies now any nausea, vomiting, or diarrhea which she has had, she says. Denies any abdominal pain, urinary symptoms, headache, or visual symptoms. She is complaining blurred vision in her right eye today. No focal neurologic deficits otherwise. She lost IV access, has been converted to p.o. antibiotics and p.o. antihypertensives. Vitals Vitals Vital Signs Date Time Temp Pulse Resp B/P (MAP) Pulse Ox O2 Delivery O2 Flow Rate FiO2 02/26/20 07:00 98.4 62 20 173/81 (111) 98 Nasal Cannula 4.0 98.4 Physical Exam Physical Exam GENERAL: Alert, oriented female, not in any distress. VITAL SIGNS: Stable HEENT: Both pupils are round and reacting. No conjunctival lesion, no lesion in the mouth. NECK: Supple, no JVP, no lymphadenopathy. LUNGS: Clear. HEART: S1, S2 regular. ABDOMEN: Benign. EXTREMITIES: No edema or cyanosis. SKIN: Unremarkable. NEUROLOGIC: The patient is alert, awake, and appropriate. No focal neurologic deficit. Lungs: Clear Labs LABS Laboratory Tests Test 02/25/20 11:17 02/25/20 16:06 02/25/20 21:07 02/26/20 03:15 Glucose (Fingerstick) 193 mg/dL (70-99) 136 mg/dL (70-99) 171 mg/dL (70-99) Prothrombin Time 16.8 SEC (11.7-14.0) Prothromb Time International Ratio 1.4 (0.8-1.1) Test 02/26/20 07:11 Glucose (Fingerstick) 168 mg/dL (70-99) Assessment and Plan Assessmemt and Plan Problems Medical Problems: (1) COVID-19 Status: Acute (2) Hypertensive urgency Status: Acute (3) Pneumonia Status: Acute (4) Vertigo Status: Acute Comment Review of Relevant I have reviewed the following items raman (where applicable) has been applied. Labs Laboratory Tests Test 02/24/20 08:41 02/24/20 11:25 02/24/20 12:18 02/24/20 16:08 Glucose (Fingerstick) 276 mg/dL (70-99) 243 mg/dL (70-99) 241 mg/dL (70-99) Prothrombin Time 16.0 SEC (11.7-14.0) Prothromb Time International Ratio 1.3 (0.8-1.1) Procalcitonin 0.13 ng/mL (0.00-0.10) Digoxin Level 0.5 ng/mL (0.9-2.0) Digoxin Last Dose Date 02/23/20 Digoxin Last Dose Time 0900 Test 02/24/20 21:24 02/25/20 04:30 02/25/20 07:07 02/25/20 11:17 Glucose (Fingerstick) 212 mg/dL (70-99) 189 mg/dL (70-99) 193 mg/dL (70-99) Prothrombin Time 15.8 SEC (11.7-14.0) Prothromb Time International Ratio 1.3 (0.8-1.1) Test 02/25/20 16:06 02/25/20 21:07 02/26/20 03:15 02/26/20 07:11 Glucose (Fingerstick) 136 mg/dL (70-99) 171 mg/dL (70-99) 168 mg/dL (70-99) Prothrombin Time 16.8 SEC (11.7-14.0) Prothromb Time International Ratio 1.4 (0.8-1.1) Laboratory Tests Test 02/25/20 11:17 02/25/20 16:06 02/25/20 21:07 02/26/20 03:15 Glucose (Fingerstick) 193 mg/dL (70-99) 136 mg/dL (70-99) 171 mg/dL (70-99) Prothrombin Time 16.8 SEC (11.7-14.0) Prothromb Time International Ratio 1.4 (0.8-1.1) Test 02/26/20 07:11 Glucose (Fingerstick) 168 mg/dL (70-99) Microbiology 02/23/20 Blood Culture - Preliminary, Resulted NO GROWTH AFTER 1 DAY Medications Current Medications Ondansetron HCl (Zofran) 4 mg 1X ONCE IVP Last administered on 02/23/20at 19:43; Start 02/23/20 at 19:45; Stop 02/23/20 at 19:46; Status DC Meclizine HCl (Antivert) 25 mg 1X ONCE PO Last administered on 02/23/20at 19:44; Start 02/23/20 at 19:45; Stop 02/23/20 at 19:46; Status DC Sodium Chloride 1,000 ml @ 1,000 mls/hr Q1H IV Last administered on 02/23/20at 20:14; Start 02/23/20 at 19:28; Stop 02/23/20 at 20:27; Status DC Lorazepam (Ativan Inj) 1 mg 1X ONCE IVP Last administered on 02/23/20at 19:44; Start 02/23/20 at 19:45; Stop 02/23/20 at 19:46; Status DC Hydralazine HCl (Apresoline Inj) 10 mg 1X ONCE IVP Last administered on 02/23/20at 20:14; Start 02/23/20 at 20:00; Stop 02/23/20 at 20:03; Status DC Scopolamine (Transderm-Scop) 1 patch 1X ONCE TD Last administered on 02/23/20at 22:21; Start 02/23/20 at 22:30; Stop 02/23/20 at 22:31; Status DC Ceftriaxone Sodium (Rocephin) 1 gm 1X ONCE IVP Last administered on 02/23/20at 22:27; Start 02/23/20 at 22:30; Stop 02/23/20 at 22:31; Status DC Azithromycin (Zithromax) 500 mg 1X ONCE PO Last administered on 02/23/20at 22:26; Start 02/23/20 at 22:30; Stop 02/23/20 at 22:31; Status DC Hydralazine HCl (Apresoline Inj) 10 mg 1X ONCE IVP Last administered on 02/23/20at 23:12; Start 02/23/20 at 23:30; Stop 02/23/20 at 23:31; Status DC Ondansetron HCl (Zofran) 4 mg PRN Q8HRS PRN IV NAUSEA/VOMITING 1ST CHOICE; Start 02/23/20 at 23:00; Stop 02/24/20 at 22:59; Status DC Acetaminophen (Tylenol) 650 mg PRN Q4HRS PRN PO FEVER > 100.3'F; Start 02/23/20 at 23:00; Stop 02/24/20 at 12:22; Status DC Albuterol/ Ipratropium (Duoneb) 3 ml RTQID NEB ; Start 02/24/20 at 08:00; Stop 02/24/20 at 09:21; Status DC Albuterol/ Ipratropium (Duoneb) 3 ml 1X ONCE NEB ; Start 02/23/20 at 23:45; Stop 02/23/20 at 23:46; Status DC Clonidine HCl (Catapres) 0.2 mg 1X ONCE PO Last administered on 02/24/20at 00:47; Start 02/24/20 at 01:00; Stop 02/24/20 at 01:01; Status DC Albuterol/ Ipratropium (Duoneb) 3 ml PRN Q4HRS PRN NEB SHORTNESS OF BREATH; Start 02/24/20 at 09:30; Stop 02/25/20 at 09:29; Status DC Hydralazine HCl (Apresoline Inj) 10 mg PRN Q4HRS PRN IVP ELEVATED BP, SEE COMMENTS; Start 02/24/20 at 09:45 Piperacillin Sod/ Tazobactam Sod 3.375 gm/Sodium Chloride 50 ml @ 100 mls/hr Q6HRS IV Last administered on 02/26/20at 05:53; Start 02/24/20 at 12:00 Linezolid/Dextrose 300 ml @ 300 mls/hr Q12HR IV Last administered on 02/25/20at 21:54; Start 02/24/20 at 11:00 Acetaminophen (Tylenol) 650 mg PRN Q6HRS PRN PO HEADACHE/TEMP Last administered on 02/26/20at 07:20; Start 02/24/20 at 12:15 Aspirin (Ecotrin) 81 mg DAILY PO Last administered on 02/25/20at 08:26; Start 02/25/20 at 09:00 Atorvastatin Calcium (Lipitor) 20 mg QHS PO Last administered on 02/25/20at 21:54; Start 02/24/20 at 21:00 Bupropion HCl (Wellbutrin Sr) 150 mg DAILY PO Last administered on 02/25/20at 08:25; Start 02/25/20 at 09:00 Digoxin (Lanoxin) 125 mcg DAILY PO ; Start 02/25/20 at 09:00; Stop 02/24/20 at 16:58; Status DC Diltiazem HCl (Cardizem 24hr Cd) 300 mg DAILY PO ; Start 02/25/20 at 09:00; Stop 02/24/20 at 16:58; Status DC Ergocalciferol (Vitamin D2) 50,000 unit QSA PO ; Start 02/29/20 at 16:00 Fluticasone Propionate (Flonase) 2 spray DAILY NS Last administered on 02/25/20at 08:26; Start 02/25/20 at 09:00 Furosemide (Lasix) 40 mg DAILY PO Last administered on 02/25/20at 08:28; Start 02/25/20 at 09:00 Hydralazine HCl (Apresoline) 25 mg TID PO Last administered on 02/25/20at 21:56; Start 02/24/20 at 14:00 Lisinopril (Prinivil) 10 mg DAILY PO ; Start 02/25/20 at 09:00; Stop 02/24/20 at 16:58; Status DC Metoprolol Tartrate (Lopressor) 75 mg BID PO Last administered on 02/25/20 21:55; Start 02/24/20 at 21:00 Warfarin Sodium (Coumadin) 0.5 mg DAILY PO ; Start 02/25/20 at 09:00; Stop 02/24/20 at 13:04; Status DC Warfarin Sodium (Coumadin) 6 mg DAILY16 PO ; Start 02/24/20 at 16:00; Status UNV Insulin Human Lispro (HumaLOG) 15 units TIDWMEALS SQ Last administered on 02/25/20 17:23; Start 02/24/20 at 17:00 Loperamide HCl (Imodium) 2 mg PRN Q15MIN PRN PO DIARRHEA; Start 02/24/20 at 12:45 Cetirizine HCl (ZyrTEC) 10 mg DAILY PO Last administered on 02/25/20at 08:25; Start 02/25/20 at 09:00 Warfarin Sodium (Coumadin Per Pharmacy) 1 each PRN DAILY PRN MC SEE COMMENTS Last administered on 02/25/20at 12:44; Start 02/24/20 at 12:45 Warfarin Sodium (Coumadin) 4 mg 1X WARF ONCE PO Last administered on 02/24/20 17:27; Start 02/24/20 at 16:00; Stop 02/24/20 at 16:01; Status DC Furosemide (Lasix) 40 mg 1X ONCE IVP Last administered on 02/24/20 17:25; Start 02/24/20 at 17:00; Stop 02/24/20 at 17:01; Status DC Digoxin (Lanoxin) 125 mcg DAILY PO Last administered on 02/25/20 08:25; Start 02/24/20 at 17:00 Diltiazem HCl (Cardizem 24hr Cd) 300 mg DAILY PO Last administered on 02/25/20 08:25; Start 02/24/20 at 17:00 Lisinopril (Prinivil) 10 mg DAILY PO Last administered on 02/25/20 08:24; Start 02/24/20 at 17:00 Ondansetron HCl (Zofran) 4 mg PRN Q6HRS PRN IVP NAUSEA/VOMITING Last ad ministered on 02/25/20at 11:41; Start 02/25/20 at 11:30 Warfarin Sodium (Coumadin) 6 mg 1X WARF ONCE PO Last administered on 02/25/20 17:21; Start 02/25/20 at 16:00; Stop 02/25/20 at 16:01; Status DC Lactobacillus Rhamnosus (Culturelle) 1 cap BID PO Last administered on 02/25/20at 21:54; Start 02/25/20 at 21:00 Active Scripts Active Atorvastatin Calcium 20 Mg Tablet 20 Mg PO QHS 30 Days Lisinopril 10 Mg Tablet 10 Mg PO DAILY 30 Days Tylenol (Acetaminophen) 325 Mg Tablet 650 Mg PO PRN Q6HRS PRN 30 Days Coumadin (Warfarin Sodium) 3 Mg Tablet 6 Mg PO DAILY16 30 Days Diltiazem 24HR Cd (Diltiazem Hcl) 300 Mg Cap.er.24h 300 Mg PO DAILY 30 Days Lanoxin (Digoxin) 125 Mcg Tablet 125 Mcg PO DAILY 30 Days [Albuterol Sulfate] 2.5 MG/3 ML Nebu 2.5 Mg NEB PRN Q4HRS PRN Reported Ventolin Hfa Inhaler (Albuterol Sulfate) 18 Gm Hfa.aer.ad 2 Puff INH Q4HRS Combivent Respimat Inhal (Ipratropium/Albuterol Sulfate) 4 Gm Aer.w.adap 2 Inh IH QID Loratadine 10 Mg Tablet 10 Mg PO DAILY Loperamide (Loperamide Hcl) 2 Mg Tablet 2 Mg PO PRN Q4HRS PRN Furosemide 40 Mg Tablet 40 Mg PO DAILY Metoprolol Tartrate 50 Mg Tablet 75 Mg PO BID Warfarin Sodium 1 Mg Tablet 0.5 Mg PO DAILY Hydralazine Hcl 25 Mg Tablet 1 Tab PO TID Wellbutrin Sr (Bupropion Hcl) 150 Mg Tablet.er 150 Mg PO DAILY Novolog (Insulin Aspart) 100 Unit/1 Ml Cartridge 15 Unit SQ TID Aspirin Ec (Aspirin) 81 Mg Tablet.dr 1 Tab PO DAILY Fluticasone Propionate Nasal Indian (Fluticasone Propionate) 16 Gm Indian.susp 2 Indian NS DAILY LAST DOSE GIVEN: DATE: 10-13-15 TIME: 9 am NEXT DOSE DUE: DATE: 10-14-15 TIME: 9 am Vitamin D2 (Ergocalciferol (Vitamin D2)) 50,000 Unit Capsule 1 Cap PO QSA Vitals/I & O Vital Sign - Last 24 Hours 02/25/20 02/25/20 02/25/20 02/25/20 08:24 08:24 08:25 08:25 Pulse 78 78 78 78 B/P (MAP) 189/93 189/93 189/93 189/93 02/25/20 02/25/20 02/25/20 02/25/20 08:25 11:00 14:20 14:29 Temp 98.8 99.2 98.8 99.2 Pulse 78 71 71 54 Resp 20 18 B/P (MAP) 189/93 156/66 (96) 156/66 169/79 (109) Pulse Ox 96 92 O2 Delivery Nasal Cannula Nasal Cannula O2 Flow Rate 3.0 3.0 02/25/20 02/25/20 02/25/20 02/25/20 19:10 20:00 21:55 21:56 Temp 96.6 96.6 Pulse 60 60 60 Resp 24 B/P (MAP) 184/79 (114) 184/79 184/79 Pulse Ox 97 O2 Delivery Nasal Cannula Nasal Cannula O2 Flow Rate 4.0 4.0 02/25/20 02/26/20 02/26/20 23:15 03:20 07:00 Temp 98.0 97.8 98.4 98.0 97.8 98.4 Pulse 55 60 62 Resp 22 22 20 B/P (MAP) 162/65 (97) 161/72 (101) 173/81 (111) Pulse Ox 98 94 98 O2 Delivery Nasal Cannula Nasal Cannula Nasal Cannula O2 Flow Rate 4.0 4.0 4.0 Intake and Output 02/25/20 02/25/20 02/26/20 15:00 23:00 07:00 Intake Total 500 ml 350 ml 120 ml Output Total 1000 ml 650 ml Balance -500 ml 350 ml -530 ml Nutrition Consultation Dietary Evaluation: Recommendations by RD: Dietary education by RD, Increase Calorie Intake, Protein supplementation Comments: ADA/cardiac with glucerna bid Expected Outcomes/Goals: to meet >75% est nutrition and fluid needs Malnutrition Findings: Food and Nutrition Intake (Mod: <75% est energy req 7days Weight Status: Morbidly Obese Fluid Accumulation (Non-Severe: Mild depletion SHARRON GRUBBS MD February 26, 2020 08:08
[2020-02-26] MEDS: LACTOBACILLUS RHAMNOSUS GG 1 CAPSULE. PO SCH ×2 (08:56→20:53)
[2020-02-26] MEDS: buPROPion SR 150 MG TABLET.SA PO SCH (08:56)
[2020-02-26] MEDS: LISINOPRIL 10 MG TABLET PO SCH (08:56)
[2020-02-26] MEDS: hydrALAZINE 25 MG TABLET PO SCH (08:56)
[2020-02-26] MEDS: ASPIRIN ENTERIC COATED 81 MG TABLET.DR. PO SCH (08:56)
[2020-02-26] MEDS: METOPROLOL TART IMMED RELEASE 50 MG TABLET. PO SCH (08:56)
[2020-02-26] MEDS: CETIRIZINE HCL 10 MG TABLET. PO SCH (08:57)
[2020-02-26] MEDS: DIGOXIN 125 MCG TABLET. PO SCH (08:57)
[2020-02-26] MEDS: FUROSEMIDE 40 MG TABLET. PO SCH (08:57)
[2020-02-26] MEDS: INSULIN LISPRO 300 UNITS/3 ML VIAL. SQ SCH ×3 (09:41→17:21)
[2020-02-26] MEDS: FLUTICASONE 50MCG/NASAL SPRAY 16GM BOTTLE. NS SCH (09:41)
--- NOTE | 2020-02-26 09:44 | PDOC ---
Infectious Disease Note Subjective Subjective pt is feeling better ROS ROS no n/v/d/sob Vital Sign Vital Signs Vital Signs Date Time Temp Pulse Resp B/P (MAP) Pulse Ox O2 Delivery O2 Flow Rate FiO2 02/26/20 08:57 62 173/81 02/26/20 07:00 98.4 20 98 Nasal Cannula 4.0 98.4 Physical Exam PHYSICAL EXAM GENERAL: Alert, oriented female, not in any distress. VITAL SIGNS: Stable HEENT: Both pupils are round and reacting. No conjunctival lesion, no lesion in the mouth. NECK: Supple, no JVP, no lymphadenopathy. LUNGS: Clear. HEART: S1, S2 regular. ABDOMEN: Benign. EXTREMITIES: No edema or cyanosis. SKIN: Unremarkable. NEUROLOGIC: The patient is alert, awake, and appropriate. No focal neurologic deficit. Labs Lab Laboratory Tests Test 02/25/20 11:17 02/25/20 16:06 02/25/20 21:07 02/26/20 03:15 Glucose (Fingerstick) 193 mg/dL (70-99) 136 mg/dL (70-99) 171 mg/dL (70-99) Prothrombin Time 16.8 SEC (11.7-14.0) Prothromb Time International Ratio 1.4 (0.8-1.1) Test 02/26/20 07:11 Glucose (Fingerstick) 168 mg/dL (70-99) Micro Microbiology 02/23/20 Blood Culture - Preliminary, Resulted NO GROWTH AFTER 1 DAY Objective Assessment IMPRESSION: 1. Bilateral pulmonary infiltrates. This could be secondary bacterial infection. She has been recovering from COVID. I discussed it could be just congestive heart failure from accelerated hypertension. 2. Recent COVID-19 positive, exact time of positivity is unknown. 3. Fever. 4. Leukocytosis. 5. Hypoxemia. 6. Diabetes. 7. Accelerated hypertension. Plan Plan of Care RECOMMENDATIONS: Zyvox and Zosyn. ,, change to po augmentin culture neg so far , supportive care, and we will continue to follow. MONSE CARPENTER MD February 26, 2020 09:44
[2020-02-26 11:00] VITALS: BP 178/70
--- NOTE | 2020-02-26 11:56 | NUR ---
pt IV no longer flushing. ID changed abx to PO. Discussed w/ cardiology as she has IV meds for HTN. verbal order to increase PO hydralizine and stop IV.
--- NOTE | 2020-02-26 12:18 | NUR ---
SW following. Discussed with RN, pt on oral abx now, still requiring oxygen. PT/OT ordered today. SW will continue to follow. Pt is COVID-19 positive.
[2020-02-26] MEDS: LATANOPROST 0.005% OPHTH SOLUTION 2.5ML BOTTLE. OU SCH ×2 (13:34→20:53)
--- NOTE | 2020-02-26 14:04 | NUR ---
Pharmacy Warfarin Dosing Note S:Pharmacy consulted to assist with anticoagulation therapy with target INR: 2 -3 O:MICHAELA COOPER is a 74 year old F with Atrial Fibrillation LABS: Last INR: 1.4 Last HGB: 10.8 Last HCT: 34.7 Last PLT: 315 Last dose of 6 mg given on 02/25/20 at 1721 A:INR of 1.4 is below desired range. Target range for this patient is: 2 -3 P: Warfarin dose: 6 mg Today at 1600 Bridge Therapy: None Next INR due tomorrow Pharmacy anticoagulation service will continue to follow. Zeny Meraz RPH, 02/26/20 [id number]
[2020-02-26 15:00] VITALS: BP 149/69
--- NOTE | 2020-02-26 15:55 | NUR ---
pt requested to get into chair. assisted pt to sit up and dangle at edge of bed. pt became very dizzy and SOA. Sat dropped to 82% on 2L. O2 increased to 4L and pt recovered to 92%. after sitting at EOB for a few minutes, pt wanted to lay back down.
--- NOTE | 2020-02-26 16:25 | NUR ---
pg to Chang Gonzalez RE pt mercedes down to 37-42. new orders received.
[2020-02-26 19:55] VITALS: BP 147/67
[2020-02-26] MEDS: AMOXICILLIN/K CLAV 875/125MG TABLET. PO SCH (20:53)
[2020-02-26] MEDS: ATORVASTATIN CALCIUM 20 MG TABLET PO SCH (20:53)
[2020-02-26 22:42] VITALS: BP 149/73
[2020-02-27 02:43] VITALS: BP 177/90
[2020-02-27 05:35] LABS: BASO # 0.1 x10^3/uL (0.0-0.2); BASO % 1 % (0-3); EOS # 0.2 x10^3/uL (0.0-0.7); EOS % 3 % (0-3); HEMATOCRIT 32.5 % (36.0-47.0); HEMOGLOBIN 10.1 g/dL (12.0-15.5); LYMPH # 0.8 x10^3/uL (1.0-4.8); LYMPH % 11 % (24-48); MEAN CORPUSCULAR HEMOGLOBIN 25 pg (25-35); MEAN CORPUSCULAR HGB CONC 31 g/dL (31-37); MEAN CORPUSCULAR VOLUME 79 fL (79-100); MONO # 0.6 x10^3/uL (0.0-1.1); MONO % 9 % (0-9); NEUT # 5.3 x10^3/uL (1.8-7.7); NEUT % 77 % (31-73); PLATELET COUNT 289 x10^3/uL (140-400); RED BLOOD COUNT 4.11 x10^6/uL (3.50-5.40); RED CELL DISTRIBUTION WIDTH 21.3 % (11.5-14.5); WHITE BLOOD COUNT 6.9 x10^3/uL (4.0-11.0)
[2020-02-27 05:39] LABS: ALBUMIN 2.9 g/dL (3.4-5.0); CALCIUM 8.6 mg/dL (8.5-10.1); GFR 54.3; MAGNESIUM 1.8 mg/dL (1.8-2.4); POTASSIUM 4.4 mmol/L (3.5-5.1); TOTAL BILIRUBIN 0.7 mg/dL (0.2-1.0); TOTAL PROTEIN 5.9 g/dL (6.4-8.2)
[2020-02-27 05:53] LABS: PROTHROMBIN TIME PATIENT 17.3 SEC (11.7-14.0)
[2020-02-27 07:28] VITALS: BP 183/84
[2020-02-27] MEDS: INSULIN LISPRO 300 UNITS/3 ML VIAL. SQ SCH ×4 (08:00→17:00)
[2020-02-27] MEDS: FLUTICASONE 50MCG/NASAL SPRAY 16GM BOTTLE. NS SCH (09:00)
[2020-02-27] MEDS: ASPIRIN ENTERIC COATED 81 MG TABLET.DR. PO SCH (09:01)
[2020-02-27] MEDS: CETIRIZINE HCL 10 MG TABLET. PO SCH (09:02)
[2020-02-27] MEDS: LISINOPRIL 10 MG TABLET PO SCH (09:02)
[2020-02-27] MEDS: LACTOBACILLUS RHAMNOSUS GG 1 CAPSULE. PO SCH ×2 (09:02→20:14)
[2020-02-27] MEDS: ZINC SULFATE 220 MG CAPSULE. PO SCH (09:03)
[2020-02-27] MEDS: FUROSEMIDE 40 MG TABLET. PO SCH (09:03)
[2020-02-27] MEDS: buPROPion SR 150 MG TABLET.SA PO SCH (09:03)
[2020-02-27] MEDS: AMOXICILLIN/K CLAV 875/125MG TABLET. PO SCH ×2 (09:03→20:16)
--- NOTE | 2020-02-27 09:20 | NUR ---
0800 humalog: non-administered as pt is not eating breakfast and BG was 145. Will continue to monitor pt.
--- NOTE | 2020-02-27 09:55 | PDOC ---
Infectious Disease Note Subjective Subjective pt is feeling better ROS ROS No nausea vomiting diarrhea chest pain or shortness of breath Vital Sign Vital Signs Vital Signs Date Time Temp Pulse Resp B/P (MAP) Pulse Ox O2 Delivery O2 Flow Rate FiO2 02/27/20 09:03 85 183/84 02/27/20 07:28 95.7 96 Room Air 95.7 02/27/20 02:43 20 4.0 Physical Exam PHYSICAL EXAM GENERAL: Alert, oriented female, not in any distress. VITAL SIGNS: Stable HEENT: Both pupils are round and reacting. No conjunctival lesion, no lesion in the mouth. NECK: Supple, no JVP, no lymphadenopathy. LUNGS: Clear. HEART: S1, S2 regular. ABDOMEN: Benign. EXTREMITIES: No edema or cyanosis. SKIN: Unremarkable. NEUROLOGIC: The patient is alert, awake, and appropriate. No focal neurologic deficit. Labs Lab Laboratory Tests Test 02/26/20 11:28 02/26/20 16:54 02/26/20 21:28 02/27/20 03:00 Glucose (Fingerstick) 174 mg/dL (70-99) 117 mg/dL (70-99) 79 mg/dL (70-99) White Blood Count 6.9 x10^3/uL (4.0-11.0) Red Blood Count 4.11 x10^6/uL (3.50-5.40) Hemoglobin 10.1 g/dL (12.0-15.5) Hematocrit 32.5 % (36.0-47.0) Mean Corpuscular Volume 79 fL (79-100) Mean Corpuscular Hemoglobin 25 pg (25-35) Mean Corpuscular Hemoglobin Concent 31 g/dL (31-37) Red Cell Distribution Width 21.3 % (11.5-14.5) Platelet Count 289 x10^3/uL (140-400) Neutrophils (%) (Auto) 77 % (31-73) Lymphocytes (%) (Auto) 11 % (24-48) Monocytes (%) (Auto) 9 % (0-9) Eosinophils (%) (Auto) 3 % (0-3) Basophils (%) (Auto) 1 % (0-3) Neutrophils # (Auto) 5.3 x10^3/uL (1.8-7.7) Lymphocytes # (Auto) 0.8 x10^3/uL (1.0-4.8) Monocytes # (Auto) 0.6 x10^3/uL (0.0-1.1) Eosinophils # (Auto) 0.2 x10^3/uL (0.0-0.7) Basophils # (Auto) 0.1 x10^3/uL (0.0-0.2) Prothrombin Time 17.3 SEC (11.7-14.0) Prothromb Time International Ratio 1.5 (0.8-1.1) Test 02/27/20 04:00 02/27/20 08:09 Sodium Level 140 mmol/L (136-145) Potassium Level 4.4 mmol/L (3.5-5.1) Chloride Level 101 mmol/L (98-107) Carbon Dioxide Level 34 mmol/L (21-32) Anion Gap 5 (6-14) Blood Urea Nitrogen 10 mg/dL (7-20) Creatinine 1.0 mg/dL (0.6-1.0) Estimated GFR (Cockcroft-Gault) 54.3 BUN/Creatinine Ratio 10 (6-20) Glucose Level 108 mg/dL (70-99) Calcium Level 8.6 mg/dL (8.5-10.1) Magnesium Level 1.8 mg/dL (1.8-2.4) Total Bilirubin 0.7 mg/dL (0.2-1.0) Aspartate Amino Transf (AST/SGOT) 20 U/L (15-37) Alanine Aminotransferase (ALT/SGPT) 12 U/L (14-59) Alkaline Phosphatase 76 U/L (46-116) Total Protein 5.9 g/dL (6.4-8.2) Albumin 2.9 g/dL (3.4-5.0) Albumin/Globulin Ratio 1.0 (1.0-1.7) Glucose (Fingerstick) 143 mg/dL (70-99) Micro Microbiology 02/23/20 Blood Culture - Preliminary, Resulted NO GROWTH AFTER 1 DAY Objective Assessment IMPRESSION: 1. Bilateral pulmonary infiltrates. This could be secondary bacterial infection. She has been recovering from COVID. I discussed it could be just congestive heart failure from accelerated hypertension. 2. Recent COVID-19 positive, exact time of positivity is unknown. 3. Fever. 4. Leukocytosis. 5. Hypoxemia. 6. Diabetes. 7. Accelerated hypertension. Plan Plan of Care po augmentin culture neg so far , supportive care, and we will continue to follow. MONSE CARPENTER MD February 27, 2020 09:55
[2020-02-27 11:00] VITALS: BP 192/86
[2020-02-27] MEDS ORDERED: amLODIPine BESYLATE 10 MG TABLET PO ONE (12:00)
--- NOTE | 2020-02-27 12:05 | PDOC ---
PROGRESS NOTES Chief Complaint Chief Complaint A/P: Cough - with shortness of breath. diffuse wheezing not initially responsive to nebulizers, will treat inpatient for acute bronchitis/COPD exacerbation. IV steroids, nebs Diarrhea - will monitor, psyllium HTN - cont meds Hyperlipidemia - cont statin AFIB - on BB and coumadin, will continue, monitor INR CHF - unknown if ischemic cardiomyopathy, seems compensated currently Acute exacerbation of COPD - as above Depression - cont meds DM2 - basal bolus plus insulin while inpatient Visual blurring - likely glaucoma, difficult to test pressure here, will trial on lananoprost (prostaglandin) daily FEN - ADA diet PPX - lovenox FULL CODE Dispo - inpatient 2 midnights. History of Present Illness History of Present Illness Ms Yang is a 74 yo F resident of [facility] w/ PMHx HTN, Hyperlipidemia, AFIB, valvular insufficiency, CHF, cardiomyopathy, COPD, Depression, DM2 who p/w cough, shortness of breath, diarrhea for the last 3-4 days. was recently tested for COVID-19 and was positive. Now, she has nausea, vomiting, and diarrhea. She has some associated dizziness. This has been occurring off and on for a few days, worse with moving, better with sitting still. She gets fatigued easily. Her dizziness worsens with change in position. She has underlying COPD, but states her shortness of breath is worse. While in the ER, she is noted to have a low-grade temperature of 100.5. She also has a mild white count elevation 13K. Chest x-ray is showing a possible atypical pneumonia. Was called for admission for further treatment In ED noted in afib, normal troponin. CXR with no acute findings. BNP 1212, K 5.2, Cr 1.1, glucose 173. Admitted for further care of Hypertensive urgency. Chest x-ray showed bilateral diffuse interstitial infiltrate and cardiomegaly. The patient received Rocephin and azithromycin 1 dose each from the ER. 02/24: States her breathing is okay, although she is normally not on oxygen. She is requiring 3 L of oxygen. Denies now any nausea, vomiting, or diarrhea which she has had, she says. Denies any abdominal pain, urinary symptoms, headache, or visual symptoms. 02/25: She is complaining blurred vision in her right eye today. No focal neurologic deficits otherwise. She lost IV access, has been converted to p.o. antibiotics and p.o. antihypertensives. Overnight was bradycardic, metoprolol had been increased to 75 mg, now reduced to 25 mg twice daily, still has Cardizem 300 mg daily. Lost IV access. SBP 198 today. HR in the 80s. She still feels very weak. Vitals Vitals Vital Signs Date Time Temp Pulse Resp B/P (MAP) Pulse Ox O2 Delivery O2 Flow Rate FiO2 02/27/20 09:03 85 183/84 02/27/20 07:28 95.7 96 Room Air 95.7 02/27/20 02:43 20 4.0 Physical Exam Physical Exam GENERAL: Alert, oriented female, not in any distress. VITAL SIGNS: Stable HEENT: Both pupils are round and reacting. No conjunctival lesion, no lesion in the mouth. NECK: Supple, no JVP, no lymphadenopathy. LUNGS: Clear. HEART: S1, S2 regular. ABDOMEN: Benign. EXTREMITIES: No edema or cyanosis. SKIN: Unremarkable. NEUROLOGIC: The patient is alert, awake, and appropriate. No focal neurologic deficit. Lungs: Clear Labs LABS Laboratory Tests Test 02/26/20 16:54 02/26/20 21:28 02/27/20 03:00 02/27/20 04:00 Glucose (Fingerstick) 117 mg/dL (70-99) 79 mg/dL (70-99) White Blood Count 6.9 x10^3/uL (4.0-11.0) Red Blood Count 4.11 x10^6/uL (3.50-5.40) Hemoglobin 10.1 g/dL (12.0-15.5) Hematocrit 32.5 % (36.0-47.0) Mean Corpuscular Volume 79 fL (79-100) Mean Corpuscular Hemoglobin 25 pg (25-35) Mean Corpuscular Hemoglobin Concent 31 g/dL (31-37) Red Cell Distribution Width 21.3 % (11.5-14.5) Platelet Count 289 x10^3/uL (140-400) Neutrophils (%) (Auto) 77 % (31-73) Lymphocytes (%) (Auto) 11 % (24-48) Monocytes (%) (Auto) 9 % (0-9) Eosinophils (%) (Auto) 3 % (0-3) Basophils (%) (Auto) 1 % (0-3) Neutrophils # (Auto) 5.3 x10^3/uL (1.8-7.7) Lymphocytes # (Auto) 0.8 x10^3/uL (1.0-4.8) Monocytes # (Auto) 0.6 x10^3/uL (0.0-1.1) Eosinophils # (Auto) 0.2 x10^3/uL (0.0-0.7) Basophils # (Auto) 0.1 x10^3/uL (0.0-0.2) Prothrombin Time 17.3 SEC (11.7-14.0) Prothromb Time International Ratio 1.5 (0.8-1.1) Sodium Level 140 mmol/L (136-145) Potassium Level 4.4 mmol/L (3.5-5.1) Chloride Level 101 mmol/L (98-107) Carbon Dioxide Level 34 mmol/L (21-32) Anion Gap 5 (6-14) Blood Urea Nitrogen 10 mg/dL (7-20) Creatinine 1.0 mg/dL (0.6-1.0) Estimated GFR (Cockcroft-Gault) 54.3 BUN/Creatinine Ratio 10 (6-20) Glucose Level 108 mg/dL (70-99) Calcium Level 8.6 mg/dL (8.5-10.1) Magnesium Level 1.8 mg/dL (1.8-2.4) Total Bilirubin 0.7 mg/dL (0.2-1.0) Aspartate Amino Transf (AST/SGOT) 20 U/L (15-37) Alanine Aminotransferase (ALT/SGPT) 12 U/L (14-59) Alkaline Phosphatase 76 U/L (46-116) Total Protein 5.9 g/dL (6.4-8.2) Albumin 2.9 g/dL (3.4-5.0) Albumin/Globulin Ratio 1.0 (1.0-1.7) Test 02/27/20 08:09 Glucose (Fingerstick) 143 mg/dL (70-99) Assessment and Plan Assessmemt and Plan Problems Medical Problems: (1) COVID-19 Status: Acute (2) Hypertensive urgency Status: Acute (3) Pneumonia Status: Acute (4) Vertigo Status: Acute Comment Review of Relevant I have reviewed the following items raman (where applicable) has been applied. Labs Laboratory Tests Test 02/25/20 16:06 02/25/20 21:07 02/26/20 03:15 02/26/20 07:11 Glucose (Fingerstick) 136 mg/dL (70-99) 171 mg/dL (70-99) 168 mg/dL (70-99) Prothrombin Time 16.8 SEC (11.7-14.0) Prothromb Time International Ratio 1.4 (0.8-1.1) Test 02/26/20 11:28 02/26/20 16:54 02/26/20 21:28 02/27/20 03:00 Glucose (Fingerstick) 174 mg/dL (70-99) 117 mg/dL (70-99) 79 mg/dL (70-99) White Blood Count 6.9 x10^3/uL (4.0-11.0) Red Blood Count 4.11 x10^6/uL (3.50-5.40) Hemoglobin 10.1 g/dL (12.0-15.5) Hematocrit 32.5 % (36.0-47.0) Mean Corpuscular Volume 79 fL (79-100) Mean Corpuscular Hemoglobin 25 pg (25-35) Mean Corpuscular Hemoglobin Concent 31 g/dL (31-37) Red Cell Distribution Width 21.3 % (11.5-14.5) Platelet Count 289 x10^3/uL (140-400) Neutrophils (%) (Auto) 77 % (31-73) Lymphocytes (%) (Auto) 11 % (24-48) Monocytes (%) (Auto) 9 % (0-9) Eosinophils (%) (Auto) 3 % (0-3) Basophils (%) (Auto) 1 % (0-3) Neutrophils # (Auto) 5.3 x10^3/uL (1.8-7.7) Lymphocytes # (Auto) 0.8 x10^3/uL (1.0-4.8) Monocytes # (Auto) 0.6 x10^3/uL (0.0-1.1) Eosinophils # (Auto) 0.2 x10^3/uL (0.0-0.7) Basophils # (Auto) 0.1 x10^3/uL (0.0-0.2) Prothrombin Time 17.3 SEC (11.7-14.0) Prothromb Time International Ratio 1.5 (0.8-1.1) Test 02/27/20 04:00 02/27/20 08:09 Sodium Level 140 mmol/L (136-145) Potassium Level 4.4 mmol/L (3.5-5.1) Chloride Level 101 mmol/L (98-107) Carbon Dioxide Level 34 mmol/L (21-32) Anion Gap 5 (6-14) Blood Urea Nitrogen 10 mg/dL (7-20) Creatinine 1.0 mg/dL (0.6-1.0) Estimated GFR (Cockcroft-Gault) 54.3 BUN/Creatinine Ratio 10 (6-20) Glucose Level 108 mg/dL (70-99) Calcium Level 8.6 mg/dL (8.5-10.1) Magnesium Level 1.8 mg/dL (1.8-2.4) Total Bilirubin 0.7 mg/dL (0.2-1.0) Aspartate Amino Transf (AST/SGOT) 20 U/L (15-37) Alanine Aminotransferase (ALT/SGPT) 12 U/L (14-59) Alkaline Phosphatase 76 U/L (46-116) Total Protein 5.9 g/dL (6.4-8.2) Albumin 2.9 g/dL (3.4-5.0) Albumin/Globulin Ratio 1.0 (1.0-1.7) Glucose (Fingerstick) 143 mg/dL (70-99) Laboratory Tests Test 02/26/20 16:54 02/26/20 21:28 02/27/20 03:00 02/27/20 04:00 Glucose (Fingerstick) 117 mg/dL (70-99) 79 mg/dL (70-99) White Blood Count 6.9 x10^3/uL (4.0-11.0) Red Blood Count 4.11 x10^6/uL (3.50-5.40) Hemoglobin 10.1 g/dL (12.0-15.5) Hematocrit 32.5 % (36.0-47.0) Mean Corpuscular Volume 79 fL (79-100) Mean Corpuscular Hemoglobin 25 pg (25-35) Mean Corpuscular Hemoglobin Concent 31 g/dL (31-37) Red Cell Distribution Width 21.3 % (11.5-14.5) Platelet Count 289 x10^3/uL (140-400) Neutrophils (%) (Auto) 77 % (31-73) Lymphocytes (%) (Auto) 11 % (24-48) Monocytes (%) (Auto) 9 % (0-9) Eosinophils (%) (Auto) 3 % (0-3) Basophils (%) (Auto) 1 % (0-3) Neutrophils # (Auto) 5.3 x10^3/uL (1.8-7.7) Lymphocytes # (Auto) 0.8 x10^3/uL (1.0-4.8) Monocytes # (Auto) 0.6 x10^3/uL (0.0-1.1) Eosinophils # (Auto) 0.2 x10^3/uL (0.0-0.7) Basophils # (Auto) 0.1 x10^3/uL (0.0-0.2) Prothrombin Time 17.3 SEC (11.7-14.0) Prothromb Time International Ratio 1.5 (0.8-1.1) Sodium Level 140 mmol/L (136-145) Potassium Level 4.4 mmol/L (3.5-5.1) Chloride Level 101 mmol/L (98-107) Carbon Dioxide Level 34 mmol/L (21-32) Anion Gap 5 (6-14) Blood Urea Nitrogen 10 mg/dL (7-20) Creatinine 1.0 mg/dL (0.6-1.0) Estimated GFR (Cockcroft-Gault) 54.3 BUN/Creatinine Ratio 10 (6-20) Glucose Level 108 mg/dL (70-99) Calcium Level 8.6 mg/dL (8.5-10.1) Magnesium Level 1.8 mg/dL (1.8-2.4) Total Bilirubin 0.7 mg/dL (0.2-1.0) Aspartate Amino Transf (AST/SGOT) 20 U/L (15-37) Alanine Aminotransferase (ALT/SGPT) 12 U/L (14-59) Alkaline Phosphatase 76 U/L (46-116) Total Protein 5.9 g/dL (6.4-8.2) Albumin 2.9 g/dL (3.4-5.0) Albumin/Globulin Ratio 1.0 (1.0-1.7) Test 02/27/20 08:09 Glucose (Fingerstick) 143 mg/dL (70-99) Microbiology 02/23/20 Blood Culture - Preliminary, Resulted NO GROWTH AFTER 3 DAYS Medications Current Medications Ondansetron HCl (Zofran) 4 mg 1X ONCE IVP Last administered on 02/23/20at 19:43; Start 02/23/20 at 19:45; Stop 02/23/20 at 19:46; Status DC Meclizine HCl (Antivert) 25 mg 1X ONCE PO Last administered on 02/23/20at 19:44; Start 02/23/20 at 19:45; Stop 02/23/20 at 19:46; Status DC Sodium Chloride 1,000 ml @ 1,000 mls/hr Q1H IV Last administered on 02/23/20at 20:14; Start 02/23/20 at 19:28; Stop 02/23/20 at 20:27; Status DC Lorazepam (Ativan Inj) 1 mg 1X ONCE IVP Last administered on 02/23/20at 19:44; Start 02/23/20 at 19:45; Stop 02/23/20 at 19:46; Status DC Hydralazine HCl (Apresoline Inj) 10 mg 1X ONCE IVP Last administered on 0at 20:14; Start 02/23/20 at 20:00; Stop 02/23/20 at 20:03; Status DC Scopolamine (Transderm-Scop) 1 patch 1X ONCE TD Last administered on 02/23/20at 22:21; Start 02/23/20 at 22:30; Stop 02/23/20 at 22:31; Status DC Ceftriaxone Sodium (Rocephin) 1 gm 1X ONCE IVP Last administered on 02/23/20at 22:27; Start 02/23/20 at 22:30; Stop 02/23/20 at 22:31; Status DC Azithromycin (Zithromax) 500 mg 1X ONCE PO Last administered on 02/23/20at 22:26; Start 02/23/20 at 22:30; Stop 02/23/20 at 22:31; Status DC Hydralazine HCl (Apresoline Inj) 10 mg 1X ONCE IVP Last administered on 02/23/20at 23:12; Start 02/23/20 at 23:30; Stop 02/23/20 at 23:31; Status DC Ondansetron HCl (Zofran) 4 mg PRN Q8HRS PRN IV NAUSEA/VOMITING 1ST CHOICE; Start 02/23/20 at 23:00; Stop 02/24/20 at 22:59; Status DC Acetaminophen (Tylenol) 650 mg PRN Q4HRS PRN PO FEVER > 100.3'F; Start 02/23/20 at 23:00; Stop 02/24/20 at 12:22; Status DC Albuterol/ Ipratropium (Duoneb) 3 ml RTQID NEB ; Start 02/24/20 at 08:00; Stop 02/24/20 at 09:21; Status DC Albuterol/ Ipratropium (Duoneb) 3 ml 1X ONCE NEB ; Start 02/23/20 at 23:45; Stop 02/23/20 at 23:46; Status DC Clonidine HCl (Catapres) 0.2 mg 1X ONCE PO Last administered on 02/24/20at 00:47; Start 02/24/20 at 01:00; Stop 02/24/20 at 01:01; Status DC Albuterol/ Ipratropium (Duoneb) 3 ml PRN Q4HRS PRN NEB SHORTNESS OF BREATH; Start 02/24/20 at 09:30; Stop 02/25/20 at 09:29; Status DC Hydralazine HCl (Apresoline Inj) 10 mg PRN Q4HRS PRN IVP ELEVATED BP, SEE COMMENTS; Start 02/24/20 at 09:45; Stop 02/27/20 at 03:42; Status DC Piperacillin Sod/ Tazobactam Sod 3.375 gm/Sodium Chloride 50 ml @ 100 mls/hr Q6HRS IV Last administered on 02/26/20at 05:53; Start 02/24/20 at 12:00; Stop 02/26/20 at 10:11; Status DC Linezolid/Dextrose 300 ml @ 300 mls/hr Q12HR IV Last administered on 02/26/20at 08:55; Start 02/24/20 at 11:00; Stop 02/26/20 at 10:11; Status DC Acetaminophen (Tylenol) 650 mg PRN Q6HRS PRN PO HEADACHE/TEMP Last administered on 02/26/20at 21:38; Start 02/24/20 at 12:15 Aspirin (Ecotrin) 81 mg DAILY PO Last administered on 02/27/20at 09:01; Start 02/25/20 at 09:00 Atorvastatin Calcium (Lipitor) 20 mg QHS PO Last administered on 02/26/20at 20:53; Start 02/24/20 at 21:00 Bupropion HCl (Wellbutrin Sr) 150 mg DAILY PO Last administered on 02/27/20at 09:03; Start 02/25/20 at 09:00 Digoxin (Lanoxin) 125 mcg DAILY PO ; Start 02/25/20 at 09:00; Stop 02/24/20 at 16:58; Status DC Diltiazem HCl (Cardizem 24hr Cd) 300 mg DAILY PO ; Start 02/25/20 at 09:00; Stop 02/24/20 at 16:58; Status DC Ergocalciferol (Vitamin D2) 50,000 unit QSA PO ; Start 02/29/20 at 16:00 Fluticasone Propionate (Flonase) 2 spray DAILY NS Last administered on 02/26/20at 09:41; Start 02/25/20 at 09:00 Furosemide (Lasix) 40 mg DAILY PO Last administered on 02/27/20at 09:03; Start 02/25/20 at 09:00 Hydralazine HCl (Apresoline) 25 mg TID PO Last administered on 02/26/20at 08:56; Start 02/24/20 at 14:00; Stop 02/26/20 at 11:53; Status DC Lisinopril (Prinivil) 10 mg DAILY PO ; Start 02/25/20 at 09:00; Stop 02/24/20 at 16:58; Status DC Metoprolol Tartrate (Lopressor) 75 mg BID PO Last administered on 02/26/20at 08:56; Start 02/24/20 at 21:00; Stop 02/26/20 at 16:25; Status DC Warfarin Sodium (Coumadin) 0.5 mg DAILY PO ; Start 02/25/20 at 09:00; Stop 02/24/20 at 13:04; Status DC Warfarin Sodium (Coumadin) 6 mg DAILY16 PO ; Start 02/24/20 at 16:00; Status UNV Insulin Human Lispro (HumaLOG) 15 units TIDWMEALS SQ Last administered on 02/26/20at 17:21; Start 02/24/20 at 17:00 Loperamide HCl (Imodium) 2 mg PRN Q15MIN PRN PO DIARRHEA; Start 02/24/20 at 12:45 Cetirizine HCl (ZyrTEC) 10 mg DAILY PO Last administered on 02/27/20at 09:02; Start 02/25/20 at 09:00 Warfarin Sodium (Coumadin Per Pharmacy) 1 each PRN DAILY PRN MC SEE COMMENTS Last administered on 02/26/20at 14:03; Start 02/24/20 at 12:45 Warfarin Sodium (Coumadin) 4 mg 1X WARF ONCE PO Last administered on 02/24/20at 17:27; Start 02/24/20 at 16:00; Stop 02/24/20 at 16:01; Status DC Furosemide (Lasix) 40 mg 1X ONCE IVP Last administered on 02/24/20at 17:25; Start 02/24/20 at 17:00; Stop 02/24/20 at 17:01; Status DC Digoxin (Lanoxin) 125 mcg DAILY PO Last administered on 02/26/20at 08:57; Start 02/24/20 at 17:00; Stop 02/26/20 at 16:25; Status DC Diltiazem HCl (Cardizem 24hr Cd) 300 mg DAILY PO Last administered on 02/26/20at 08:57; Start 02/24/20 at 17:00; Stop 02/26/20 at 16:25; Status DC Lisinopril (Prinivil) 10 mg DAILY PO Last administered on 02/27/20at 09:02; Start 02/24/20 at 17:00 Ondansetron HCl (Zofran) 4 mg PRN Q6HRS PRN IVP NAUSEA/VOMITING Last administered on 02/25/20at 11:41; Start 02/25/20 at 11:30; Stop 02/27/20 at 03:42; Status DC Warfarin Sodium (Coumadin) 6 mg 1X WARF ONCE PO Last administered on 02/25/20at 17:21; Start 02/25/20 at 16:00; Stop 02/25/20 at 16:01; Status DC Lactobacillus Rhamnosus (Culturelle) 1 cap BID PO Last administered on 02/27/20at 09:02; Start 02/25/20 at 21:00 Amoxicillin/ Clavulanate Potassium (Augmentin 875/ 125mg) 1 tab BID PO Last administered on 02/27/20at 09:03; Start 02/26/20 at 21:00 Hydralazine HCl (Apresoline) 50 mg TID PO Last administered on 02/26/20at 13:34; Start 02/26/20 at 14:00; Stop 02/26/20 at 16:25; Status DC Zinc Sulfate (Orazinc) 220 mg DAILY PO Last administered on 02/27/20at 09:03; Start 02/27/20 at 09:00 Latanoprost (Xalatan) 1 drop QHS OU Last administered on 02/26/20at 20:53; Start 02/26/20 at 12:45 Diltiazem HCl (Cardizem 24hr Cd) 300 mg DAILYWLUN PO ; Start 02/27/20 at 12:00 Hydralazine HCl (Apresoline) 75 mg TID PO Last administered on 02/27/20at 09:03; Start 02/26/20 at 21:00 Metoprolol Tartrate (Lopressor) 50 mg BID PO ; Start 02/27/20 at 21:00 Amlodipine Besylate (Norvasc) 10 mg DAILY ONCE PO ; Start 02/28/20 at 09:00; Stop 02/28/20 at 09:01 Active Scripts Active Atorvastatin Calcium 20 Mg Tablet 20 Mg PO QHS 30 Days Lisinopril 10 Mg Tablet 10 Mg PO DAILY 30 Days Tylenol (Acetaminophen) 325 Mg Tablet 650 Mg PO PRN Q6HRS PRN 30 Days Coumadin (Warfarin Sodium) 3 Mg Tablet 6 Mg PO DAILY16 30 Days Diltiazem 24HR Cd (Diltiazem Hcl) 300 Mg Cap.er.24h 300 Mg PO DAILY 30 Days Lanoxin (Digoxin) 125 Mcg Tablet 125 Mcg PO DAILY 30 Days [Albuterol Sulfate] 2.5 MG/3 ML Nebu 2.5 Mg NEB PRN Q4HRS PRN Reported Ventolin Hfa Inhaler (Albuterol Sulfate) 18 Gm Hfa.aer.ad 2 Puff INH Q4HRS Combivent Respimat Inhal (Ipratropium/Albuterol Sulfate) 4 Gm Aer.w.adap 2 Inh IH QID Loratadine 10 Mg Tablet 10 Mg PO DAILY Loperamide (Loperamide Hcl) 2 Mg Tablet 2 Mg PO PRN Q4HRS PRN Furosemide 40 Mg Tablet 40 Mg PO DAILY Metoprolol Tartrate 50 Mg Tablet 75 Mg PO BID Warfarin Sodium 1 Mg Tablet 0.5 Mg PO DAILY Hydralazine Hcl 25 Mg Tablet 1 Tab PO TID Wellbutrin Sr (Bupropion Hcl) 150 Mg Tablet.er 150 Mg PO DAILY Novolog (Insulin Aspart) 100 Unit/1 Ml Cartridge 15 Unit SQ TID Aspirin Ec (Aspirin) 81 Mg Tablet.dr 1 Tab PO DAILY Fluticasone Propionate Nasal Manderson (Fluticasone Propionate) 16 Gm Manderson.susp 2 Manderson NS DAILY LAST DOSE GIVEN: DATE: 10-13-15 TIME: 9 am NEXT DOSE DUE: DATE: 10-14-15 TIME: 9 am Vitamin D2 (Ergocalciferol (Vitamin D2)) 50,000 Unit Capsule 1 Cap PO QSA Vitals/I & O Vital Sign - Last 24 Hours 02/26/20 02/26/20 02/26/20 02/26/20 13:34 15:00 19:55 20:24 Temp 97.7 96.5 97.7 96.5 Pulse 59 68 71 Resp 20 24 B/P (MAP) 178/70 149/69 (95) 147/67 (93) Pulse Ox 97 99 O2 Delivery Nasal Cannula Nasal Cannula Nasal Cannula O2 Flow Rate 4.0 4.0 4.0 02/26/20 02/26/20 02/27/20 02/27/20 20:53 22:42 02:43 07:28 Temp 97.8 97.0 95.7 97.8 97.0 95.7 Pulse 71 63 77 85 Resp 22 20 B/P (MAP) 147/67 149/73 (98) 177/90 (119) 183/84 (117) Pulse Ox 98 100 96 O2 Delivery Nasal Cannula Nasal Cannula Room Air O2 Flow Rate 4.0 4.0 02/27/20 02/27/20 09:02 09:03 Pulse 85 85 B/P (MAP) 183/84 183/84 Intake and Output 02/26/20 02/26/20 02/27/20 15:00 23:00 07:00 Intake Total 600 ml 120 ml Output Total 1000 ml Balance 600 ml -1000 ml 120 ml Nutrition Consultation Dietary Evaluation: Recommendations by RD: Dietary education by RD, Increase Calorie Intake, Protein supplementation Comments: ADA/cardiac with glucerna bid Expected Outcomes/Goals: to meet >75% est nutrition and fluid needs Malnutrition Findings: Food and Nutrition Intake (Mod: <75% est energy req 7days Weight Status: Morbidly Obese Fluid Accumulation (Non-Severe: Mild depletion SHARRON GRUBBS MD February 27, 2020 12:05
[2020-02-27] MEDS: NITROGLYCERIN OINT 1 GM PACKET. TP SCH ×2 (12:28→18:00)
[2020-02-27] MEDS ORDERED: ONDANSETRON ODT 4 MG TAB.RAPDIS. PO PRN (13:15)
[2020-02-27] MEDS ORDERED: PROCHLORPERAZINE 10 MG/2 ML VIAL. IM PRN (13:15)
--- NOTE | 2020-02-27 13:45 | NUR ---
Pt c/o nausea. Offered Zofran to pt, she declined. States it is starting to subside. Will notify nurse if she feels she need medication. Will continue to monitor pt.
[2020-02-27] MEDS ORDERED: METOPROLOL TART IMMED RELEASE 50 MG TABLET. PO ONE (14:00)
--- NOTE | 2020-02-27 14:02 | PDOC ---
CARDIO Progress Notes Date and Time Date of Service 02/27/2020 Time of Evaluation 1130 Subjective Subjective: No Chest Pain, No shortness of breath, No Palpitations Vitals Vitals Vital Signs Date Time Temp Pulse Resp B/P (MAP) Pulse Ox O2 Delivery O2 Flow Rate FiO2 02/27/20 12:28 72 192/86 02/27/20 11:00 97.4 98 Nasal Cannula 4.0 97.4 02/27/20 02:43 20 Weight Weight [ ] Input and Output Intake and Output Intake and Output 02/27/20 07:00 Intake Total 720 ml Output Total 1000 ml Balance -280 ml Intake Oral 720 ml Output Urine Total 1000 ml # Voids 1 Laboratory Labs Laboratory Tests Test 02/26/20 16:54 02/26/20 21:28 02/27/20 03:00 02/27/20 04:00 Glucose (Fingerstick) 117 mg/dL (70-99) 79 mg/dL (70-99) White Blood Count 6.9 x10^3/uL (4.0-11.0) Red Blood Count 4.11 x10^6/uL (3.50-5.40) Hemoglobin 10.1 g/dL (12.0-15.5) Hematocrit 32.5 % (36.0-47.0) Mean Corpuscular Volume 79 fL (79-100) Mean Corpuscular Hemoglobin 25 pg (25-35) Mean Corpuscular Hemoglobin Concent 31 g/dL (31-37) Red Cell Distribution Width 21.3 % (11.5-14.5) Platelet Count 289 x10^3/uL (140-400) Neutrophils (%) (Auto) 77 % (31-73) Lymphocytes (%) (Auto) 11 % (24-48) Monocytes (%) (Auto) 9 % (0-9) Eosinophils (%) (Auto) 3 % (0-3) Basophils (%) (Auto) 1 % (0-3) Neutrophils # (Auto) 5.3 x10^3/uL (1.8-7.7) Lymphocytes # (Auto) 0.8 x10^3/uL (1.0-4.8) Monocytes # (Auto) 0.6 x10^3/uL (0.0-1.1) Eosinophils # (Auto) 0.2 x10^3/uL (0.0-0.7) Basophils # (Auto) 0.1 x10^3/uL (0.0-0.2) Prothrombin Time 17.3 SEC (11.7-14.0) Prothromb Time International Ratio 1.5 (0.8-1.1) Sodium Level 140 mmol/L (136-145) Potassium Level 4.4 mmol/L (3.5-5.1) Chloride Level 101 mmol/L (98-107) Carbon Dioxide Level 34 mmol/L (21-32) Anion Gap 5 (6-14) Blood Urea Nitrogen 10 mg/dL (7-20) Creatinine 1.0 mg/dL (0.6-1.0) Estimated GFR (Cockcroft-Gault) 54.3 BUN/Creatinine Ratio 10 (6-20) Glucose Level 108 mg/dL (70-99) Calcium Level 8.6 mg/dL (8.5-10.1) Magnesium Level 1.8 mg/dL (1.8-2.4) Total Bilirubin 0.7 mg/dL (0.2-1.0) Aspartate Amino Transf (AST/SGOT) 20 U/L (15-37) Alanine Aminotransferase (ALT/SGPT) 12 U/L (14-59) Alkaline Phosphatase 76 U/L (46-116) Total Protein 5.9 g/dL (6.4-8.2) Albumin 2.9 g/dL (3.4-5.0) Albumin/Globulin Ratio 1.0 (1.0-1.7) Test 02/27/20 08:09 02/27/20 12:35 Glucose (Fingerstick) 143 mg/dL (70-99) 191 mg/dL (70-99) Microbiology Micro Microbiology 02/23/20 Blood Culture - Preliminary, Resulted NO GROWTH AFTER 3 DAYS Physical Exam Chest: Symmetric LUNGS: Other (diminished) Heart: irregularly irregular (AFIB rate controlled) Abdomen: Other (obese) Extremities: No Calf Tenderness Neurology: alert, oriented, follow commands Assessment Assessment 1. Dizziness, nausea/vomiting: none further. Potentially from uncontrolled HTN. 2. Hypertensive urgency; remains labile after withholding BB and CCB due to bradycardia 3. Acute on chronic diastolic CHF; Recent echo with preserved LV systolic function, compensated 4. PAFIB vs chronic:; persistent AFIB with bradycardia yesterday lowest in the 30s no pauses. 5. Hyperlipidemia; statin therapy 6. Diabetes, II 7. Recent COVID + with associated COPD; unknown date Recommendations 1. DC digoxin and cardizem. Continue metoprolol. 2. Start on norvasc. Continue lasix therapy. Hydralazine PO and will increase per BP trend. Will add lisinopril if remains labile 3. Consider outpatient cardioversion once fully recovered from covid 4. Supportive care. Follow up in 4-6 weeks IVETTE COREA APRN February 27, 2020 14:01
--- NOTE | 2020-02-27 14:12 | NUR ---
1400 1x dose metoprolol: Spoke with Chang re: order. He stated not to give the 1x order and resume metoprolol this evening as ordered at 2100. Non-admin dose.
[2020-02-27 15:00] VITALS: BP 148/103
--- NOTE | 2020-02-27 15:08 | NUR ---
Pharmacy Warfarin Dosing Note S: Pharmacy consulted to assist with anticoagulation therapy O: MICHAELA COOPER is a 74 year old F with Atrial Fibrillation LABS: Last INR: 1.5 Last HGB: 10.1 Last HCT: 32.5 Last PLT: 289 Last dose of 6 mg given on 02/26/20 at 1721 Vitamin K given: N Ongoing Drug Interactions: ASA A:INR of 1.5 is below desired range. Target range for this patient is: 2 - 3. P: Warfarin dose: 6 mg Today at 1600 Bridge Therapy: None Next INR due 02/28/20 Pharmacy anticoagulation service will continue to follow. ALYSSA KIRKPATRICK [facility], 02/27/20 [id number]
--- NOTE | 2020-02-27 15:37 | NUR ---
SS following up with discharge planning. SS reviewed pt chart and discussed with pt RN. Pt is from [facility]. Pt is currently requiring oxygen. Pt is COVID19 positive. PT/OT ordered. Pt will require six minute walk if returning to [facility]. SS will continue to follow for discharge planning.
[2020-02-27] MEDS ORDERED: WARFARIN 3 MG TABLET. PO ONE (16:00)
[2020-02-27 19:00] VITALS: BP 164/73
[2020-02-27] MEDS: ATORVASTATIN CALCIUM 20 MG TABLET PO SCH (20:11)
[2020-02-27] MEDS: LATANOPROST 0.005% OPHTH SOLUTION 2.5ML BOTTLE. OU SCH (20:11)
[2020-02-27] MEDS: METOPROLOL TART IMMED RELEASE 50 MG TABLET. PO SCH (20:15)
[2020-02-27 23:00] VITALS: BP 173/65
[2020-02-28] MEDS: NITROGLYCERIN OINT 1 GM PACKET. TP SCH ×4 (00:32→17:17)
[2020-02-28 03:00] VITALS: BP 178/75
[2020-02-28 06:33] LABS: PROTHROMBIN TIME PATIENT 16.7 SEC (11.7-14.0)
[2020-02-28 07:00] VITALS: BP 149/86
[2020-02-28] MEDS: INSULIN LISPRO 300 UNITS/3 ML VIAL. SQ SCH ×3 (08:00→17:00)
--- NOTE | 2020-02-28 08:34 | PDOC ---
PROGRESS NOTES Chief Complaint Chief Complaint A/P: Cough - with shortness of breath. diffuse wheezing not initially responsive to nebulizers, will treat inpatient for acute bronchitis/COPD exacerbation. IV steroids, nebs Diarrhea - will monitor, psyllium HTN - cont meds Hyperlipidemia - cont statin AFIB - on BB and coumadin, will continue, monitor INR CHF - unknown if ischemic cardiomyopathy, seems compensated currently Acute exacerbation of COPD - as above Depression - cont meds DM2 - basal bolus plus insulin while inpatient Visual blurring - likely glaucoma, difficult to test pressure here, will trial on lananoprost (prostaglandin) daily FEN - ADA diet PPX - lovenox FULL CODE Dispo - inpatient 2 midnights. History of Present Illness History of Present Illness Ms Yang is a 74 yo F resident of [facility] w/ PMHx HTN, Hyperlipidemia, AFIB, valvular insufficiency, CHF, cardiomyopathy, COPD, Depression, DM2 who p/w cough, shortness of breath, diarrhea for the last 3-4 days. was recently tested for COVID-19 and was positive. Now, she has nausea, vomiting, and diarrhea. She has some associated dizziness. This has been occurring off and on for a few days, worse with moving, better with sitting still. She gets fatigued easily. Her dizziness worsens with change in position. She has underlying COPD, but states her shortness of breath is worse. While in the ER, she is noted to have a low-grade temperature of 100.5. She also has a mild white count elevation 13K. Chest x-ray is showing a possible atypical pneumonia. Was called for admission for further treatment In ED noted in afib, normal troponin. CXR with no acute findings. BNP 1212, K 5.2, Cr 1.1, glucose 173. Admitted for further care of Hypertensive urgency. Chest x-ray showed bilateral diffuse interstitial infiltrate and cardiomegaly. The patient received Rocephin and azithromycin 1 dose each from the ER. 02/24: States her breathing is okay, although she is normally not on oxygen. She is requiring 3 L of oxygen. Denies now any nausea, vomiting, or diarrhea which she has had, she says. Denies any abdominal pain, urinary symptoms, headache, or visual symptoms. 02/25: She is complaining blurred vision in her right eye today. No focal neurologic deficits otherwise. She lost IV access, has been converted to p.o. antibiotics and p.o. antihypertensives. 02/26: Overnight was bradycardic, metoprolol had been increased to 75 mg, now reduced to 25 mg twice daily, still has Cardizem 300 mg daily. Lost IV access. SBP 198 today. HR in the 80s. She still feels very weak. BP better controlled. On amlodipine 10 mg, lisinopril 20 mg, metoprolol. Still hypoxic still very weak still with some right eye blurring. She says she feels terrible and tired. Plan: Will add lovenox, suptherapeutic INR. Monitor BP Rehab modalities Formal visual examination, no clear signs of increased ocular pressure, no response to topical treatment. Vitals Vitals Vital Signs Date Time Temp Pulse Resp B/P (MAP) Pulse Ox O2 Delivery O2 Flow Rate FiO2 02/28/20 05:39 82 178/75 02/28/20 03:00 98.3 18 95 98.3 02/27/20 19:38 Nasal Cannula 4.0 Physical Exam Physical Exam GENERAL: Alert, oriented female, not in any distress. VITAL SIGNS: Stable HEENT: Both pupils are round and reacting. No conjunctival lesion, no lesion in the mouth. NECK: Supple, no JVP, no lymphadenopathy. LUNGS: Clear. HEART: S1, S2 regular. ABDOMEN: Benign. EXTREMITIES: No edema or cyanosis. SKIN: Unremarkable. NEUROLOGIC: The patient is alert, awake, and appropriate. No focal neurologic deficit. Lungs: Clear Labs LABS Laboratory Tests Test 02/27/20 12:35 02/27/20 17:22 02/27/20 21:23 02/28/20 04:05 Glucose (Fingerstick) 191 mg/dL (70-99) 144 mg/dL (70-99) 150 mg/dL (70-99) Prothrombin Time 16.7 SEC (11.7-14.0) Prothromb Time International Ratio 1.4 (0.8-1.1) Test 02/28/20 07:41 Glucose (Fingerstick) 140 mg/dL (70-99) Assessment and Plan Assessmemt and Plan Problems Medical Problems: (1) COVID-19 Status: Acute (2) Hypertensive urgency Status: Acute (3) Pneumonia Status: Acute (4) Vertigo Status: Acute Comment Review of Relevant I have reviewed the following items raman (where applicable) has been applied. Labs Laboratory Tests Test 02/26/20 11:28 02/26/20 16:54 02/26/20 21:28 02/27/20 03:00 Glucose (Fingerstick) 174 mg/dL (70-99) 117 mg/dL (70-99) 79 mg/dL (70-99) White Blood Count 6.9 x10^3/uL (4.0-11.0) Red Blood Count 4.11 x10^6/uL (3.50-5.40) Hemoglobin 10.1 g/dL (12.0-15.5) Hematocrit 32.5 % (36.0-47.0) Mean Corpuscular Volume 79 fL (79-100) Mean Corpuscular Hemoglobin 25 pg (25-35) Mean Corpuscular Hemoglobin Concent 31 g/dL (31-37) Red Cell Distribution Width 21.3 % (11.5-14.5) Platelet Count 289 x10^3/uL (140-400) Neutrophils (%) (Auto) 77 % (31-73) Lymphocytes (%) (Auto) 11 % (24-48) Monocytes (%) (Auto) 9 % (0-9) Eosinophils (%) (Auto) 3 % (0-3) Basophils (%) (Auto) 1 % (0-3) Neutrophils # (Auto) 5.3 x10^3/uL (1.8-7.7) Lymphocytes # (Auto) 0.8 x10^3/uL (1.0-4.8) Monocytes # (Auto) 0.6 x10^3/uL (0.0-1.1) Eosinophils # (Auto) 0.2 x10^3/uL (0.0-0.7) Basophils # (Auto) 0.1 x10^3/uL (0.0-0.2) Prothrombin Time 17.3 SEC (11.7-14.0) Prothromb Time International Ratio 1.5 (0.8-1.1) Test 02/27/20 04:00 02/27/20 08:09 02/27/20 12:35 02/27/20 17:22 Sodium Level 140 mmol/L (136-145) Potassium Level 4.4 mmol/L (3.5-5.1) Chloride Level 101 mmol/L (98-107) Carbon Dioxide Level 34 mmol/L (21-32) Anion Gap 5 (6-14) Blood Urea Nitrogen 10 mg/dL (7-20) Creatinine 1.0 mg/dL (0.6-1.0) Estimated GFR (Cockcroft-Gault) 54.3 BUN/Creatinine Ratio 10 (6-20) Glucose Level 108 mg/dL (70-99) Calcium Level 8.6 mg/dL (8.5-10.1) Magnesium Level 1.8 mg/dL (1.8-2.4) Total Bilirubin 0.7 mg/dL (0.2-1.0) Aspartate Amino Transf (AST/SGOT) 20 U/L (15-37) Alanine Aminotransferase (ALT/SGPT) 12 U/L (14-59) Alkaline Phosphatase 76 U/L (46-116) Total Protein 5.9 g/dL (6.4-8.2) Albumin 2.9 g/dL (3.4-5.0) Albumin/Globulin Ratio 1.0 (1.0-1.7) Glucose (Fingerstick) 143 mg/dL (70-99) 191 mg/dL (70-99) 144 mg/dL (70-99) Test 02/27/20 21:23 02/28/20 04:05 02/28/20 07:41 Glucose (Fingerstick) 150 mg/dL (70-99) 140 mg/dL (70-99) Prothrombin Time 16.7 SEC (11.7-14.0) Prothromb Time International Ratio 1.4 (0.8-1.1) Laboratory Tests Test 02/27/20 12:35 02/27/20 17:22 02/27/20 21:23 02/28/20 04:05 Glucose (Fingerstick) 191 mg/dL (70-99) 144 mg/dL (70-99) 150 mg/dL (70-99) Prothrombin Time 16.7 SEC (11.7-14.0) Prothromb Time International Ratio 1.4 (0.8-1.1) Test 02/28/20 07:41 Glucose (Fingerstick) 140 mg/dL (70-99) Microbiology 02/23/20 Blood Culture - Preliminary, Resulted NO GROWTH AFTER 3 DAYS Medications Current Medications Ondansetron HCl (Zofran) 4 mg 1X ONCE IVP Last administered on 02/23/20at 19:43; Start 02/23/20 at 19:45; Stop 02/23/20 at 19:46; Status DC Meclizine HCl (Antivert) 25 mg 1X ONCE PO Last administered on 02/23/20at 19: 44; Start 02/23/20 at 19:45; Stop 02/23/20 at 19:46; Status DC Sodium Chloride 1,000 ml @ 1,000 mls/hr Q1H IV Last administered on 02/23/20at 20:14; Start 02/23/20 at 19:28; Stop 02/23/20 at 20:27; Status DC Lorazepam (Ativan Inj) 1 mg 1X ONCE IVP Last administered on 02/23/20at 19:44; Start 02/23/20 at 19:45; Stop 02/23/20 at 19:46; Status DC Hydralazine HCl (Apresoline Inj) 10 mg 1X ONCE IVP Last administered on 02/23/20at 20:14; Start 02/23/20 at 20:00; Stop 02/23/20 at 20:03; Status DC Scopolamine (Transderm-Scop) 1 patch 1X ONCE TD Last administered on 02/23/20at 22:21; Start 02/23/20 at 22:30; Stop 02/23/20 at 22:31; Status DC Ceftriaxone Sodium (Rocephin) 1 gm 1X ONCE IVP Last administered on 02/23/20at 22:27; Start 02/23/20 at 22:30; Stop 02/23/20 at 22:31; Status DC Azithromycin (Zithromax) 500 mg 1X ONCE PO Last administered on 02/23/20at 22:26; Start 02/23/20 at 22:30; Stop 02/23/20 at 22:31; Status DC Hydralazine HCl (Apresoline Inj) 10 mg 1X ONCE IVP Last administered on 02/23/20at 23:12; Start 02/23/20 at 23:30; Stop 02/23/20 at 23:31; Status DC Ondansetron HCl (Zofran) 4 mg PRN Q8HRS PRN IV NAUSEA/VOMITING 1ST CHOICE; Start 02/23/20 at 23:00; Stop 02/24/20 at 22:59; Status DC Acetaminophen (Tylenol) 650 mg PRN Q4HRS PRN PO FEVER > 100.3'F; Start 02/23/20 at 23:00; Stop 02/24/20 at 12:22; Status DC Albuterol/ Ipratropium (Duoneb) 3 ml RTQID NEB ; Start 02/24/20 at 08:00; Stop 02/24/20 at 09:21; Status DC Albuterol/ Ipratropium (Duoneb) 3 ml 1X ONCE NEB ; Start 02/23/20 at 23:45; Stop 02/23/20 at 23:46; Status DC Clonidine HCl (Catapres) 0.2 mg 1X ONCE PO Last administered on 02/24/20at 00:47; Start 02/24/20 at 01:00; Stop 02/24/20 at 01:01; Status DC Albuterol/ Ipratropium (Duoneb) 3 ml PRN Q4HRS PRN NEB SHORTNESS OF BREATH; Start 02/24/20 at 09:30; Stop 02/25/20 at 09:29; Status DC Hydralazine HCl (Apresoline Inj) 10 mg PRN Q4HRS PRN IVP ELEVATED BP, SEE COMMENTS; Start 02/24/20 at 09:45; Stop 02/27/20 at 03:42; Status DC Piperacillin Sod/ Tazobactam Sod 3.375 gm/Sodium Chloride 50 ml @ 100 mls/hr Q6HRS IV Last administered on 02/26/20at 05:53; Start 02/24/20 at 12:00; Stop 02/26/20 at 10:11; Status DC Linezolid/Dextrose 300 ml @ 300 mls/hr Q12HR IV Last administered on 02/26/20at 08:55; Start 02/24/20 at 11:00; Stop 02/26/20 at 10:11; Status DC Acetaminophen (Tylenol) 650 mg PRN Q6HRS PRN PO HEADACHE/TEMP Last administered on 02/26/20at 21:38; Start 02/24/20 at 12:15 Aspirin (Ecotrin) 81 mg DAILY PO Last administered on 02/27/20at 09:01; Start 02/25/20 at 09:00 Atorvastatin Calcium (Lipitor) 20 mg QHS PO Last administered on 02/27/20at 20:11; Start 02/24/20 at 21:00 Bupropion HCl (Wellbutrin Sr) 150 mg DAILY PO Last administered on 02/27/20at 09:03; Start 02/25/20 at 09:00 Digoxin (Lanoxin) 125 mcg DAILY PO ; Start 02/25/20 at 09:00; Stop 02/24/20 at 16:58; Status DC Diltiazem HCl (Cardizem 24hr Cd) 300 mg DAILY PO ; Start 02/25/20 at 09:00; Stop 02/24/20 at 16:58; Status DC Ergocalciferol (Vitamin D2) 50,000 unit QSA PO ; Start 02/29/20 at 16:00 Fluticasone Propionate (Flonase) 2 spray DAILY NS Last administered on 02/26/20at 09:41; Start 02/25/20 at 09:00 Furosemide (Lasix) 40 mg DAILY PO Last administered on 02/27/20at 09:03; Start 02/25/20 at 09:00 Hydralazine HCl (Apresoline) 25 mg TID PO Last administered on 02/26/20at 08:56; Start 02/24/20 at 14:00; Stop 02/26/20 at 11:53; Status DC Lisinopril (Prinivil) 10 mg DAILY PO ; Start 02/25/20 at 09:00; Stop 02/24/20 at 16:58; Status DC Metoprolol Tartrate (Lopressor) 75 mg BID PO Last administered on 02/26/20at 08:56; Start 02/24/20 at 21:00; Stop 02/26/20 at 16:25; Status DC Warfarin Sodium (Coumadin) 0.5 mg DAILY PO ; Start 02/25/20 at 09:00; Stop 02/24/20 at 13:04; Status DC Warfarin Sodium (Coumadin) 6 mg DAILY16 PO ; Start 02/24/20 at 16:00; Status UNV Insulin Human Lispro (HumaLOG) 15 units TIDWMEALS SQ Last administered on 02/27/20at 12:49; Start 02/24/20 at 17:00 Loperamide HCl (Imodium) 2 mg PRN Q15MIN PRN PO DIARRHEA; Start 02/24/20 at 12:45 Cetirizine HCl (ZyrTEC) 10 mg DAILY PO Last administered on 02/27/20at 09:02; Start 02/25/20 at 09:00 Warfarin Sodium (Coumadin Per Pharmacy) 1 each PRN DAILY PRN MC SEE COMMENTS Last administered on 02/27/20at 15:07; Start 02/24/20 at 12:45 Warfarin Sodium (Coumadin) 4 mg 1X WARF ONCE PO Last administered on 02/24/20 17:27; Start 02/24/20 at 16:00; Stop 02/24/20 at 16:01; Status DC Furosemide (Lasix) 40 mg 1X ONCE IVP Last administered on 02/24/20at 17:25; Start 02/24/20 at 17:00; Stop 02/24/20 at 17:01; Status DC Digoxin (Lanoxin) 125 mcg DAILY PO Last administered on 02/26/20at 08:57; Start 02/24/20 at 17:00; Stop 02/26/20 at 16:25; Status DC Diltiazem HCl (Cardizem 24hr Cd) 300 mg DAILY PO Last administered on 02/26/20at 08:57; Start 02/24/20 at 17:00; Stop 02/26/20 at 16:25; Status DC Lisinopril (Prinivil) 10 mg DAILY PO Last administered on 02/27/20at 09:02; Start 02/24/20 at 17:00 Ondansetron HCl (Zofran) 4 mg PRN Q6HRS PRN IVP NAUSEA/VOMITING Last administered on 02/25/20at 11:41; Start 02/25/20 at 11:30; Stop 02/27/20 at 03:42; Status DC Warfarin Sodium (Coumadin) 6 mg 1X WARF ONCE PO Last administered on 02/25/20 17:21; Start 02/25/20 at 16:00; Stop 02/25/20 at 16:01; Status DC Lactobacillus Rhamnosus (Culturelle) 1 cap BID PO Last administered on 02/27/20at 20:14; Start 02/25/20 at 21:00 Amoxicillin/ Clavulanate Potassium (Augmentin 875/ 125mg) 1 tab BID PO Last administered on 02/27/20at 20:16; Start 02/26/20 at 21:00 Hydralazine HCl (Apresoline) 50 mg TID PO Last administered on 02/26/20at 13:34; Start 02/26/20 at 14:00; Stop 02/26/20 at 16:25; Status DC Zinc Sulfate (Orazinc) 220 mg DAILY PO Last administered on 02/27/20at 09:03; Start 02/27/20 at 09:00 Latanoprost (Xalatan) 1 drop QHS OU Last administered on 02/27/20at 20:11; Start 02/26/20 at 12:45 Diltiazem HCl (Cardizem 24hr Cd) 300 mg DAILYWLUN PO ; Start 02/27/20 at 12:00 Hydralazine HCl (Apresoline) 75 mg TID PO Last administered on 02/27/20at 20:14; Start 02/26/20 at 21:00 Metoprolol Tartrate (Lopressor) 50 mg BID PO Last administered on 02/27/20at 20:15; Start 02/27/20 at 21:00 Amlodipine Besylate (Norvasc) 10 mg DAILY ONCE PO ; Start 02/28/20 at 09:00; Stop 02/27/20 at 11:57; Status DC Nitroglycerin (Nitro-Bid Oint) 1 inch Q6HRS TP Last administered on 02/28/20at 05:39; Start 02/27/20 at 12:00 Amlodipine Besylate (Norvasc) 10 mg 1X ONCE PO Last administered on 02/27/20at 12:28; Start 02/27/20 at 12:00; Stop 02/27/20 at 12:01; Status DC Ondansetron HCl (Zofran Odt) 4 mg PRN Q6HRS PRN PO NAUSEA/VOMITING Last administered on 02/27/20at 15:08; Start 02/27/20 at 13:15 Prochlorperazine Edisylate (Compazine) 10 mg PRN Q6HRS PRN IM NAUSEA/VOMITING; Start 02/27/20 at 13:15 Metoprolol Tartrate (Lopressor) 50 mg 1X ONCE PO ; Start 02/27/20 at 14:00; Stop 02/27/20 at 14:01; Status DC Amlodipine Besylate (Norvasc) 10 mg DAILY PO ; Start 02/28/20 at 09:00 Warfarin Sodium (Coumadin) 6 mg 1X WARF ONCE PO Last administered on 02/27/20at 15:09; Start 02/27/20 at 16:00; Stop 02/27/20 at 16:01; Status DC Active Scripts Active Atorvastatin Calcium 20 Mg Tablet 20 Mg PO QHS 30 Days Lisinopril 10 Mg Tablet 10 Mg PO DAILY 30 Days Tylenol (Acetaminophen) 325 Mg Tablet 650 Mg PO PRN Q6HRS PRN 30 Days Coumadin (Warfarin Sodium) 3 Mg Tablet 6 Mg PO DAILY16 30 Days Diltiazem 24HR Cd (Diltiazem Hcl) 300 Mg Cap.er.24h 300 Mg PO DAILY 30 Days Lanoxin (Digoxin) 125 Mcg Tablet 125 Mcg PO DAILY 30 Days [Albuterol Sulfate] 2.5 MG/3 ML Nebu 2.5 Mg NEB PRN Q4HRS PRN Reported Ventolin Hfa Inhaler (Albuterol Sulfate) 18 Gm Hfa.aer.ad 2 Puff INH Q4HRS Combivent Respimat Inhal (Ipratropium/Albuterol Sulfate) 4 Gm Aer.w.adap 2 Inh IH QID Loratadine 10 Mg Tablet 10 Mg PO DAILY Loperamide (Loperamide Hcl) 2 Mg Tablet 2 Mg PO PRN Q4HRS PRN Furosemide 40 Mg Tablet 40 Mg PO DAILY Metoprolol Tartrate 50 Mg Tablet 75 Mg PO BID Warfarin Sodium 1 Mg Tablet 0.5 Mg PO DAILY Hydralazine Hcl 25 Mg Tablet 1 Tab PO TID Wellbutrin Sr (Bupropion Hcl) 150 Mg Tablet.er 150 Mg PO DAILY Novolog (Insulin Aspart) 100 Unit/1 Ml Cartridge 15 Unit SQ TID Aspirin Ec (Aspirin) 81 Mg Tablet.dr 1 Tab PO DAILY Fluticasone Propionate Nasal [place] (Fluticasone Propionate) 16 Gm [place].susp 2 [place] NS DAILY LAST DOSE GIVEN: DATE: 10-13-15 TIME: 9 am NEXT DOSE DUE: DATE: 10-14-15 TIME: 9 am Vitamin D2 (Ergocalciferol (Vitamin D2)) 50,000 Unit Capsule 1 Cap PO QSA Vitals/I & O Vital Sign - Last 24 Hours 02/27/20 02/27/20 02/27/20 02/27/20 09:02 09:03 11:00 12:28 Temp 97.4 97.4 Pulse 85 85 72 72 B/P (MAP) 183/84 183/84 192/86 (121) 192/86 Pulse Ox 98 O2 Delivery Nasal Cannula O2 Flow Rate 4.0 02/27/20 02/27/20 02/27/20 02/27/20 12:28 15:00 15:08 19:00 Temp 97.8 96.8 97.8 96.8 Pulse 72 92 72 78 Resp 20 B/P (MAP) 192/86 148/103 (118) 192/86 164/73 (103) Pulse Ox 95 98 O2 Delivery Nasal Cannula O2 Flow Rate 4.0 02/27/20 02/27/20 02/27/20 02/27/20 19:38 20:14 20:15 23:00 Temp 97.5 97.5 Pulse 72 72 74 Resp 16 B/P (MAP) 192/86 192/86 173/65 (101) Pulse Ox 97 O2 Delivery Nasal Cannula O2 Flow Rate 4.0 02/28/20 02/28/20 02/28/20 00:32 03:00 05:39 Temp 98.3 98.3 Pulse 102 82 82 Resp 18 B/P (MAP) 157/81 178/75 (109) 178/75 Pulse Ox 95 Nutrition Consultation Dietary Evaluation: Recommendations by RD: Dietary education by RD, Increase Calorie Intake, Protein supplementation Comments: ADA/cardiac with glucerna bid Expected Outcomes/Goals: to meet >75% est nutrition and fluid needs Malnutrition Findings: Food and Nutrition Intake (Mod: <75% est energy req 7days Weight Status: Morbidly Obese Fluid Accumulation (Non-Severe: Mild depletion SHARRON GRUBBS MD February 28, 2020 08:34
--- NOTE | 2020-02-28 08:57 | PDOC ---
CARDIO Progress Notes Date and Time Date of Service 02/28/2020 Time of Evaluation 1100 Subjective Subjective: No Chest Pain, No shortness of breath, No Palpitations Vitals Vitals Vital Signs Date Time Temp Pulse Resp B/P (MAP) Pulse Ox O2 Delivery O2 Flow Rate FiO2 02/28/20 05:39 82 178/75 02/28/20 03:00 98.3 18 95 98.3 02/27/20 19:38 Nasal Cannula 4.0 Weight Weight [ ] Laboratory Labs Laboratory Tests Test 02/27/20 12:35 02/27/20 17:22 02/27/20 21:23 02/28/20 04:05 Glucose (Fingerstick) 191 mg/dL (70-99) 144 mg/dL (70-99) 150 mg/dL (70-99) Prothrombin Time 16.7 SEC (11.7-14.0) Prothromb Time International Ratio 1.4 (0.8-1.1) Test 02/28/20 07:41 Glucose (Fingerstick) 140 mg/dL (70-99) Microbiology Micro Microbiology 02/23/20 Blood Culture - Preliminary, Resulted NO GROWTH AFTER 3 DAYS Physical Exam HEENT: Neck Supple W Full Motion Chest: Symmetric LUNGS: Other (diminished) Heart: irregularly irregular (AFIB rate controlled) Abdomen: Other Extremities: No Calf Tenderness Neurology: alert, oriented, follow commands Other Exams Discussed with RN, pt feeling weak today other murphy no significant rhythm issues. Assessment Assessment 1. Dizziness, nausea/vomiting: none further. Potentially from uncontrolled HTN. 2. Hypertensive urgency; improved 3. Acute on chronic diastolic CHF; Recent echo with preserved LV systolic function, compensated 4. PAFIB vs chronic: AFIB rate controlled no further bradycardia overnight 5. Hyperlipidemia; statin therapy 6. Diabetes, II 7. Recent COVID + with associated COPD; unknown date Recommendations 1. No further Dig and cardizem. Continue metoprolol. COumadin for stroke prevention bridged with lovenox 2. Norvasc, hydralazine, lasix and will increase lisinopril. 3. Consider outpatient cardioversion once fully recovered from covid 4. Supportive care. Follow up in 4-6 weeks IVETTE COREA APRN February 28, 2020 08:57
[2020-02-28] MEDS ORDERED: amLODIPine BESYLATE 10 MG TABLET PO ONE (09:00)
[2020-02-28] MEDS: FLUTICASONE 50MCG/NASAL SPRAY 16GM BOTTLE. NS SCH (09:00)
--- NOTE | 2020-02-28 09:22 | PDOC ---
Infectious Disease Note Subjective Subjective pt is feeling better ROS ROS No nausea vomiting diarrhea chest pain shortness of breath Though very weak Vital Sign Vital Signs Vital Signs Date Time Temp Pulse Resp B/P (MAP) Pulse Ox O2 Delivery O2 Flow Rate FiO2 02/28/20 07:00 97.8 76 20 149/86 (107) 93 Nasal Cannula 4.0 97.8 Physical Exam PHYSICAL EXAM GENERAL: Alert, oriented female, not in any distress. VITAL SIGNS: Stable HEENT: Both pupils are round and reacting. No conjunctival lesion, no lesion in the mouth. NECK: Supple, no JVP, no lymphadenopathy. LUNGS: Clear. HEART: S1, S2 regular. ABDOMEN: Benign. EXTREMITIES: No edema or cyanosis. SKIN: Unremarkable. NEUROLOGIC: The patient is alert, awake, and appropriate. No focal neurologic deficit. Labs Lab Laboratory Tests Test 02/27/20 12:35 02/27/20 17:22 02/27/20 21:23 02/28/20 04:05 Glucose (Fingerstick) 191 mg/dL (70-99) 144 mg/dL (70-99) 150 mg/dL (70-99) Prothrombin Time 16.7 SEC (11.7-14.0) Prothromb Time International Ratio 1.4 (0.8-1.1) Test 02/28/20 07:41 Glucose (Fingerstick) 140 mg/dL (70-99) Micro Microbiology 02/23/20 Blood Culture - Preliminary, Resulted NO GROWTH AFTER 1 DAY Objective Assessment IMPRESSION: 1. Bilateral pulmonary infiltrates. This could be secondary bacterial infection. She has been recovering from COVID. I discussed it could be just congestive heart failure from accelerated hypertension. 2. Recent COVID-19 positive, exact time of positivity is unknown. 3. Fever. 4. Leukocytosis. 5. Hypoxemia. 6. Diabetes. 7. Accelerated hypertension. Plan Plan of Care po augmentin culture neg so far , supportive care, and we will continue to follow. MONSE CARPENTER MD February 28, 2020 09:21
[2020-02-28] MEDS: buPROPion SR 150 MG TABLET.SA PO SCH (10:00)
[2020-02-28] MEDS: ZINC SULFATE 220 MG CAPSULE. PO SCH (10:00)
[2020-02-28] MEDS: CETIRIZINE HCL 10 MG TABLET. PO SCH (10:00)
[2020-02-28] MEDS: LACTOBACILLUS RHAMNOSUS GG 1 CAPSULE. PO SCH ×2 (10:00→21:26)
[2020-02-28] MEDS: ASPIRIN ENTERIC COATED 81 MG TABLET.DR. PO SCH (10:00)
[2020-02-28] MEDS: AMOXICILLIN/K CLAV 875/125MG TABLET. PO SCH ×2 (10:00→21:28)
[2020-02-28] MEDS: amLODIPine BESYLATE 10 MG TABLET PO SCH (10:01)
[2020-02-28] MEDS: METOPROLOL TART IMMED RELEASE 50 MG TABLET. PO SCH ×2 (10:02→21:27)
[2020-02-28] MEDS: FUROSEMIDE 40 MG TABLET. PO SCH (10:05)
[2020-02-28] MEDS: LISINOPRIL 20 MG TABLET PO SCH (10:06)
[2020-02-28 11:00] VITALS: BP 147/71
--- NOTE | 2020-02-28 14:13 | NUR ---
SS following for discharge planning. SS reviewed pt chart and discussed with RN. Pt currently requiring oxygen. Pt has no home oxygen and will need six minute walk prior to discharge. PT/OT recommending detention unit. Pt has Medicaid and has no detention benefits. Pt's RN reported that pt cannot tolerate the three hours of therapy for Acute Rehabilitation. Pt is COVID19 positive. Pt will need to discharge back to [facility] with continued care through [facility]. SS will continue to follow for discharge planning.
--- NOTE | 2020-02-28 14:24 | NUR ---
Pharmacy Warfarin Dosing Note S:Pharmacy consulted to assist with anticoagulation therapy O:MICHAELA COOPER is a 74 year old F with Atrial Fibrillation LABS: Last INR: 1.4 Last HGB: 10.1 Last HCT: 32.5 Last PLT: 289 Last dose of 6 mg given on 02/27/20 at 1509 Vitamin K given: N Ongoing Drug Interactions: ASA A:INR of 1.4 is below desired range. Target range for this patient is: 2 - 3. Lovenox added today by primary for bridging, not treatment dose but okay as pt has Afib. P: Warfarin dose: 9 mg Today at 1600 Bridge Therapy: Enoxaparin 80 mg q12h Next INR due 02/29/20 Pharmacy anticoagulation service will continue to follow. ALYSSA KIRKPATRICK [facility], 02/28/20 1916
[2020-02-28 15:00] VITALS: BP 142/96
[2020-02-28] MEDS ORDERED: WARFARIN 3 MG TABLET. PO ONE (16:00)
[2020-02-28 19:00] VITALS: BP 113/77
[2020-02-28] MEDS: LATANOPROST 0.005% OPHTH SOLUTION 2.5ML BOTTLE. OU SCH (21:00)
[2020-02-28] MEDS: ATORVASTATIN CALCIUM 20 MG TABLET PO SCH (21:27)
[2020-02-28 23:00] VITALS: BP 92/43
[2020-02-29] MEDS: NITROGLYCERIN OINT 1 GM PACKET. TP SCH ×4 (00:11→16:56)
[2020-02-29 03:00] VITALS: BP 127/84
[2020-02-29 04:52] LABS: PROTHROMBIN TIME PATIENT 19.3 SEC (11.7-14.0)
[2020-02-29 07:00] VITALS: BP 184/91
--- NOTE | 2020-02-29 07:48 | PDOC ---
Infectious Disease Note Subjective Subjective pt is feeling better At baseline No F/C/S/N/V/D/SOa Vital Sign Vital Signs Vital Signs Date Time Temp Pulse Resp B/P (MAP) Pulse Ox O2 Delivery O2 Flow Rate FiO2 02/29/20 05:26 77 127/84 02/29/20 03:00 98.3 18 100 Nasal Cannula 4.0 98.3 Physical Exam PHYSICAL EXAM GENERAL: Alert, oriented female, not in any distress. Coop HEENT: Both pupils are round and reacting. No conjunctival lesion, no lesion in the mouth. NECK: Supple, no JVP, no lymphadenopathy. LUNGS: Clear. HEART: S1, S2 regular. ABDOMEN: Benign. EXTREMITIES: No edema or cyanosis. SKIN: Unremarkable. NEUROLOGIC: The patient is alert, awake, and appropriate. No focal neurologic deficit. Labs Lab Laboratory Tests Test 02/28/20 12:03 02/28/20 16:45 02/28/20 22:44 02/29/20 04:00 Glucose (Fingerstick) 161 mg/dL (70-99) 170 mg/dL (70-99) 138 mg/dL (70-99) Prothrombin Time 19.3 SEC (11.7-14.0) Prothromb Time International Ratio 1.7 (0.8-1.1) Test 02/29/20 07:28 Glucose (Fingerstick) 135 mg/dL (70-99) Micro Microbiology 02/23/20 Blood Culture - Preliminary, Resulted NO GROWTH AFTER 4 DAYS Objective Assessment 1. Bilateral pulmonary infiltrates. This could be secondary bacterial infection. She has been recovering from COVID. I discussed it could be just congestive heart failure from accelerated hypertension. 2. Recent COVID-19 positive, exact time of positivity is unknown. 3. Fever.- better 4. Leukocytosis - better. 5. Hypoxemia. 6. Diabetes. 7. Accelerated hypertension. Plan Plan of Care po augmentin 02/25 (Zyvox/zosyn 02/23) can d/c augmentin 03/01 culture neg so far , supportive care, and we will continue to follow. ID to sign off RUTHY SAHU MD February 29, 2020 07:48
[2020-02-29] MEDS: INSULIN LISPRO 300 UNITS/3 ML VIAL. SQ SCH ×3 (08:00→16:58)
--- NOTE | 2020-02-29 08:25 | PDOC ---
PROGRESS NOTES Chief Complaint Chief Complaint A/P: Cough - with shortness of breath. diffuse wheezing not initially responsive to nebulizers, will treat inpatient for acute bronchitis/COPD exacerbation. IV steroids, nebs Diarrhea - will monitor, psyllium HTN - cont meds Hyperlipidemia - cont statin AFIB - on BB and coumadin, will continue, monitor INR CHF - unknown if ischemic cardiomyopathy, seems compensated currently Acute exacerbation of COPD - as above Depression - cont meds DM2 - basal bolus plus insulin while inpatient Visual blurring - likely glaucoma, difficult to test pressure here, will trial on lananoprost (prostaglandin) daily Discoodination, loss of balance - concerning for cerebellar ataxia, d/w PT, will consult neurology FEN - ADA diet PPX - lovenox FULL CODE Dispo - inpatient 2 midnights. History of Present Illness History of Present Illness Ms Yang is a 74 yo F resident of [facility] w/ PMHx HTN, Hyperlipidemia, AFIB, valvular insufficiency, CHF, cardiomyopathy, COPD, Depression, DM2 who p/w cough, shortness of breath, diarrhea for the last 3-4 days. was recently tested for COVID-19 and was positive. Now, she has nausea, vomiting, and diarrhea. She has some associated dizziness. This has been occurring off and on for a few days, worse with moving, better with sitting still. She gets fatigued easily. Her dizziness worsens with change in position. She has underlying COPD, but states her shortness of breath is worse. While in the ER, she is noted to have a low-grade temperature of 100.5. She also has a mild white count elevation 13K. Chest x-ray is showing a possible atypical pneumonia. Was called for admission for further treatment In ED noted in afib, normal troponin. CXR with no acute findings. BNP 1212, K 5.2, Cr 1.1, glucose 173. Admitted for further care of Hypertensive urgency. Chest x-ray showed bilateral diffuse interstitial infiltrate and cardiomegaly. The patient received Rocephin and azithromycin 1 dose each from the ER. 02/24: States her breathing is okay, although she is normally not on oxygen. She is requiring 3 L of oxygen. Denies now any nausea, vomiting, or diarrhea which she has had, she says. Denies any abdominal pain, urinary symptoms, headache, or visual symptoms. 02/25: She is complaining blurred vision in her right eye today. No focal neurologic deficits otherwise. She lost IV access, has been converted to p.o. antibiotics and p.o. antihypertensives. 02/26: Overnight bradycardic, metoprolol had been increased to 75 mg, now reduced to 25 mg twice daily, still has Cardizem 300 mg daily. Lost IV access. SBP 198 today. HR in the 80s. Still feels very weak. 02/27: BP better controlled. On amlodipine 10 mg, lisinopril 20 mg, metoprolol. Still hypoxic still very weak still with some right eye blurring. She says she feels terrible and tired. Overnight no events. Afebrile BP better controlled. Still hypoxic. Still with blurred vision in her right eye. Still dizzy and nauseated. Plan: Will add lovenox, suptherapeutic INR. Monitor BP Rehab modalities Formal visual examination, no clear signs of increased ocular pressure, no response to topical treatment. Vitals Vitals Vital Signs Date Time Temp Pulse Resp B/P (MAP) Pulse Ox O2 Delivery O2 Flow Rate FiO2 02/29/20 05:26 77 127/84 02/29/20 03:00 98.3 18 100 Nasal Cannula 4.0 98.3 Physical Exam Physical Exam GENERAL: Alert, oriented female, not in any distress. VITAL SIGNS: Stable HEENT: Both pupils are round and reacting. No conjunctival lesion, no lesion in the mouth. NECK: Supple, no JVP, no lymphadenopathy. LUNGS: Clear. HEART: S1, S2 regular. ABDOMEN: Benign. EXTREMITIES: No edema or cyanosis. SKIN: Unremarkable. NEUROLOGIC: The patient is alert, awake, and appropriate. No focal neurologic deficit. Lungs: Clear Labs LABS Laboratory Tests Test 02/28/20 12:03 02/28/20 16:45 02/28/20 22:44 02/29/20 04:00 Glucose (Fingerstick) 161 mg/dL (70-99) 170 mg/dL (70-99) 138 mg/dL (70-99) Prothrombin Time 19.3 SEC (11.7-14.0) Prothromb Time International Ratio 1.7 (0.8-1.1) Test 02/29/20 07:28 Glucose (Fingerstick) 135 mg/dL (70-99) Assessment and Plan Assessmemt and Plan Problems Medical Problems: (1) COVID-19 Status: Acute (2) Hypertensive urgency Status: Acute (3) Pneumonia Status: Acute (4) Vertigo Status: Acute Comment Review of Relevant I have reviewed the following items raman (where applicable) has been applied. Labs Laboratory Tests Test 02/27/20 12:35 02/27/20 17:22 02/27/20 21:23 02/28/20 04:05 Glucose (Fingerstick) 191 mg/dL (70-99) 144 mg/dL (70-99) 150 mg/dL (70-99) Prothrombin Time 16.7 SEC (11.7-14.0) Prothromb Time International Ratio 1.4 (0.8-1.1) Test 02/28/20 07:41 02/28/20 12:03 02/28/20 16:45 02/28/20 22:44 Glucose (Fingerstick) 140 mg/dL (70-99) 161 mg/dL (70-99) 170 mg/dL (70-99) 138 mg/dL (70-99) Test 02/29/20 04:00 02/29/20 07:28 Prothrombin Time 19.3 SEC (11.7-14.0) Prothromb Time International Ratio 1.7 (0.8-1.1) Glucose (Fingerstick) 135 mg/dL (70-99) Laboratory Tests Test 02/28/20 12:03 02/28/20 16:45 02/28/20 22:44 02/29/20 04:00 Glucose (Fingerstick) 161 mg/dL (70-99) 170 mg/dL (70-99) 138 mg/dL (70-99) Prothrombin Time 19.3 SEC (11.7-14.0) Prothromb Time International Ratio 1.7 (0.8-1.1) Test 02/29/20 07:28 Glucose (Fingerstick) 135 mg/dL (70-99) Microbiology 02/23/20 Blood Culture - Preliminary, Resulted NO GROWTH AFTER 4 DAYS Medications Current Medications Ondansetron HCl (Zofran) 4 mg 1X ONCE IVP Last administered on 02/23/20at 19:43; Start 02/23/20 at 19:45; Stop 02/23/20 at 19:46; Status DC Meclizine HCl (Antivert) 25 mg 1X ONCE PO Last administered on 02/23/20at 19:44; Start 02/23/20 at 19:45; Stop 02/23/20 at 19:46; Status DC Sodium Chloride 1,000 ml @ 1,000 mls/hr Q1H IV Last administered on 02/23/20at 20:14; Start 02/23/20 at 19:28; Stop 02/23/20 at 20:27; Status DC Lorazepam (Ativan Inj) 1 mg 1X ONCE IVP Last administered on 02/23/20at 19:44; Start 02/23/20 at 19:45; Stop 02/23/20 at 19:46; Status DC Hydralazine HCl (Apresoline Inj) 10 mg 1X ONCE IVP Last administered on 02/23/20at 20:14; Start 02/23/20 at 20:00; Stop 02/23/20 at 20:03; Status DC Scopolamine (Transderm-Scop) 1 patch 1X ONCE TD Last administered on 02/23/20at 22:21; Start 02/23/20 at 22:30; Stop 02/23/20 at 22:31; Status DC Ceftriaxone Sodium (Rocephin) 1 gm 1X ONCE IVP Last administered on 02/23/20at 22:27; Start 02/23/20 at 22:30; Stop 02/23/20 at 22:31; Status DC Azithromycin (Zithromax) 500 mg 1X ONCE PO Last administered on 02/23/20at 22:26; Start 02/23/20 at 22:30; Stop 02/23/20 at 22:31; Status DC Hydralazine HCl (Apresoline Inj) 10 mg 1X ONCE IVP Last administered on 02/13 at 23:12; Start 02/23/20 at 23:30; Stop 02/23/20 at 23:31; Status DC Ondansetron HCl (Zofran) 4 mg PRN Q8HRS PRN IV NAUSEA/VOMITING 1ST CHOICE; Start 02/23/20 at 23:00; Stop 02/24/20 at 22:59; Status DC Acetaminophen (Tylenol) 650 mg PRN Q4HRS PRN PO FEVER > 100.3'F; Start 02/23/20 at 23:00; Stop 02/24/20 at 12:22; Status DC Albuterol/ Ipratropium (Duoneb) 3 ml RTQID NEB ; Start 02/24/20 at 08:00; Stop 02/24/20 at 09:21; Status DC Albuterol/ Ipratropium (Duoneb) 3 ml 1X ONCE NEB ; Start 02/23/20 at 23:45; Stop 02/23/20 at 23:46; Status DC Clonidine HCl (Catapres) 0.2 mg 1X ONCE PO Last administered on 02/24/20at 00:47; Start 02/24/20 at 01:00; Stop 02/24/20 at 01:01; Status DC Albuterol/ Ipratropium (Duoneb) 3 ml PRN Q4HRS PRN NEB SHORTNESS OF BREATH; Start 02/24/20 at 09:30; Stop 02/25/20 at 09:29; Status DC Hydralazine HCl (Apresoline Inj) 10 mg PRN Q4HRS PRN IVP ELEVATED BP, SEE COMMENTS; Start 02/24/20 at 09:45; Stop 02/27/20 at 03:42; Status DC Piperacillin Sod/ Tazobactam Sod 3.375 gm/Sodium Chloride 50 ml @ 100 mls/hr Q6HRS IV Last administered on 02/26/20at 05:53; Start 02/24/20 at 12:00; Stop 02/26/20 at 10:11; Status DC Linezolid/Dextrose 300 ml @ 300 mls/hr Q12HR IV Last administered on 02/26/20at 08:55; Start 02/24/20 at 11:00; Stop 02/26/20 at 10:11; Status DC Acetaminophen (Tylenol) 650 mg PRN Q6HRS PRN PO HEADACHE/TEMP Last administered on 02/26/20at 21:38; Start 02/24/20 at 12:15 Aspirin (Ecotrin) 81 mg DAILY PO Last administered on 02/28/20at 10:00; Start 02/25/20 at 09:00 Atorvastatin Calcium (Lipitor) 20 mg QHS PO Last administered on 02/28/20at 21:27; Start 02/24/20 at 21:00 Bupropion HCl (Wellbutrin Sr) 150 mg DAILY PO Last administered on 02/28/20at 10:00; Start 02/25/20 at 09:00 Digoxin (Lanoxin) 125 mcg DAILY PO ; Start 02/25/20 at 09:00; Stop 02/24/20 at 16:58; Status DC Diltiazem HCl (Cardizem 24hr Cd) 300 mg DAILY PO ; Start 02/25/20 at 09:00; Stop 02/24/20 at 16:58; Status DC Ergocalciferol (Vitamin D2) 50,000 unit QSA PO ; Start 02/29/20 at 16:00 Fluticasone Propionate (Flonase) 2 spray DAILY NS Last administered on 02/26/20at 09:41; Start 02/25/20 at 09:00 Furosemide (Lasix) 40 mg DAILY PO Last administered on 02/28/20at 10:05; Start 02/25/20 at 09:00 Hydralazine HCl (Apresoline) 25 mg TID PO Last administered on 02/26/20at 08:56; Start 02/24/20 at 14:00; Stop 02/26/20 at 11:53; Status DC Lisinopril (Prinivil) 10 mg DAILY PO ; Start 02/25/20 at 09:00; Stop 02/24/20 at 16:58; Status DC Metoprolol Tartrate (Lopressor) 75 mg BID PO Last administered on 02/26/20at 08:56; Start 02/24/20 at 21:00; Stop 02/26/20 at 16:25; Status DC Warfarin Sodium (Coumadin) 0.5 mg DAILY PO ; Start 02/25/20 at 09:00; Stop 02/24/20 at 13:04; Status DC Warfarin Sodium (Coumadin) 6 mg DAILY16 PO ; Start 02/24/20 at 16:00; Status UNV Insulin Human Lispro (HumaLOG) 15 units TIDWMEALS SQ Last administered on 02/27/20at 12:49; Start 02/24/20 at 17:00 Loperamide HCl (Imodium) 2 mg PRN Q15MIN PRN PO DIARRHEA; Start 02/24/20 at 12:45 Cetirizine HCl (ZyrTEC) 10 mg DAILY PO Last administered on 02/28/20at 10:00; Start 02/25/20 at 09:00 Warfarin Sodium (Coumadin Per Pharmacy) 1 each PRN DAILY PRN MC SEE COMMENTS Last administered on 02/28/20at 14:24; Start 02/24/20 at 12:45 Warfarin Sodium (Coumadin) 4 mg 1X WARF ONCE PO Last administered on 02/24/20at 17:27; Start 02/24/20 at 16:00; Stop 02/24/20 at 16:01; Status DC Furosemide (Lasix) 40 mg 1X ONCE IVP Last administered on 02/24/20at 17:25; Start 02/24/20 at 17:00; Stop 02/24/20 at 17:01; Status DC Digoxin (Lanoxin) 125 mcg DAILY PO Last administered on 02/26/20 08:57; Start 02/24/20 at 17:00; Stop 02/26/20 at 16:25; Status DC Diltiazem HCl (Cardizem 24hr Cd) 300 mg DAILY PO Last administered on 02/26/20at 08:57; Start 02/24/20 at 17:00; Stop 02/26/20 at 16:25; Status DC Lisinopril (Prinivil) 10 mg DAILY PO Last administered on 02/27/20 09:02; Start 02/24/20 at 17:00; Stop 02/28/20 at 08:56; Status DC Ondansetron HCl (Zofran) 4 mg PRN Q6HRS PRN IVP NAUSEA/VOMITING Last administered on 02/25/20at 11:41; Start 02/25/20 at 11:30; Stop 02/27/20 at 03:42; Status DC Warfarin Sodium (Coumadin) 6 mg 1X WARF ONCE PO Last administered on 02/25/20 17:21; Start 02/25/20 at 16:00; Stop 02/25/20 at 16:01; Status DC Lactobacillus Rhamnosus (Culturelle) 1 cap BID PO Last administered on 02/28/20 21:26; Start 02/25/20 at 21:00 Amoxicillin/ Clavulanate Potassium (Augmentin 875/ 125mg) 1 tab BID PO Last administered on 02/28/20 21:28; Start 02/26/20 at 21:00 Hydralazine HCl (Apresoline) 50 mg TID PO Last administered on 02/26/20at 13:34; Start 02/26/20 at 14:00; Stop 02/26/20 at 16:25; Status DC Zinc Sulfate (Orazinc) 220 mg DAILY PO Last administered on 02/28/20at 10:00; Start 02/27/20 at 09:00 Latanoprost (Xalatan) 1 drop QHS OU Last administered on 02/28/20at 21:00; Start 02/26/20 at 12:45 Diltiazem HCl (Cardizem 24hr Cd) 300 mg DAILYWLUN PO ; Start 02/27/20 at 12:00; Stop 02/28/20 at 08:56; Status DC Hydralazine HCl (Apresoline) 75 mg TID PO Last administered on 02/28/20at 21:26; Start 02/26/20 at 21:00 Metoprolol Tartrate (Lopressor) 50 mg BID PO Last administered on 02/28/20at 21:27; Start 02/27/20 at 21:00 Amlodipine Besylate (Norvasc) 10 mg DAILY ONCE PO ; Start 02/28/20 at 09:00; Stop 02/27/20 at 11:57; Status DC Nitroglycerin (Nitro-Bid Oint) 1 inch Q6HRS TP Last administered on 02/29/20at 05:26; Start 02/27/20 at 12:00 Amlodipine Besylate (Norvasc) 10 mg 1X ONCE PO Last administered on 02/27/20at 12:28; Start 02/27/20 at 12:00; Stop 02/27/20 at 12:01; Status DC Ondansetron HCl (Zofran Odt) 4 mg PRN Q6HRS PRN PO NAUSEA/VOMITING Last ad ministered on 02/27/20at 15:08; Start 02/27/20 at 13:15 Prochlorperazine Edisylate (Compazine) 10 mg PRN Q6HRS PRN IM NAUSEA/VOMITING; Start 02/27/20 at 13:15 Metoprolol Tartrate (Lopressor) 50 mg 1X ONCE PO ; Start 02/27/20 at 14:00; Stop 02/27/20 at 14:01; Status DC Amlodipine Besylate (Norvasc) 10 mg DAILY PO Last administered on 02/28/20at 10:01; Start 02/28/20 at 09:00 Warfarin Sodium (Coumadin) 6 mg 1X WARF ONCE PO Last administered on 02/27/20at 15:09; Start 02/27/20 at 16:00; Stop 02/27/20 at 16:01; Status DC Lisinopril (Prinivil) 20 mg DAILY PO Last administered on 02/28/20at 10:06; Start 02/28/20 at 09:00 Enoxaparin Sodium (Lovenox 80mg Syringe) 80 mg Q12HR SQ Last administered on 02/28/20at 21:28; Start 02/28/20 at 12:15 Warfarin Sodium (Coumadin) 9 mg 1X WARF ONCE PO Last administered on 02/28/20at 17:16; Start 02/28/20 at 16:00; Stop 02/28/20 at 16:01; Status DC Active Scripts Active Atorvastatin Calcium 20 Mg Tablet 20 Mg PO QHS 30 Days Lisinopril 10 Mg Tablet 10 Mg PO DAILY 30 Days Tylenol (Acetaminophen) 325 Mg Tablet 650 Mg PO PRN Q6HRS PRN 30 Days Coumadin (Warfarin Sodium) 3 Mg Tablet 6 Mg PO DAILY16 30 Days Diltiazem 24HR Cd (Diltiazem Hcl) 300 Mg Cap.er.24h 300 Mg PO DAILY 30 Days Lanoxin (Digoxin) 125 Mcg Tablet 125 Mcg PO DAILY 30 Days [Albuterol Sulfate] 2.5 MG/3 ML Nebu 2.5 Mg NEB PRN Q4HRS PRN Reported Ventolin Hfa Inhaler (Albuterol Sulfate) 18 Gm Hfa.aer.ad 2 Puff INH Q4HRS Combivent Respimat Inhal (Ipratropium/Albuterol Sulfate) 4 Gm Aer.w.adap 2 Inh IH QID Loratadine 10 Mg Tablet 10 Mg PO DAILY Loperamide (Loperamide Hcl) 2 Mg Tablet 2 Mg PO PRN Q4HRS PRN Furosemide 40 Mg Tablet 40 Mg PO DAILY Metoprolol Tartrate 50 Mg Tablet 75 Mg PO BID Warfarin Sodium 1 Mg Tablet 0.5 Mg PO DAILY Hydralazine Hcl 25 Mg Tablet 1 Tab PO TID Wellbutrin Sr (Bupropion Hcl) 150 Mg Tablet.er 150 Mg PO DAILY Novolog (Insulin Aspart) 100 Unit/1 Ml Cartridge 15 Unit SQ TID Aspirin Ec (Aspirin) 81 Mg Tablet.dr 1 Tab PO DAILY Fluticasone Propionate Nasal [place] (Fluticasone Propionate) 16 Gm [place].susp 2 [place] NS DAILY LAST DOSE GIVEN: DATE: 10-13-15 TIME: 9 am NEXT DOSE DUE: DATE: 10-14-15 TIME: 9 am Vitamin D2 (Ergocalciferol (Vitamin D2)) 50,000 Unit Capsule 1 Cap PO QSA Vitals/I & O Vital Sign - Last 24 Hours 02/28/20 02/28/20 02/28/20 02/28/20 10:01 10:01 10:02 10:06 Pulse 76 76 76 76 B/P (MAP) 149/86 149/86 149/86 149/86 02/28/20 02/28/20 02/28/20 02/28/20 11:00 13:12 13:12 15:00 Temp 97.6 98.1 97.6 98.1 Pulse 94 94 94 83 Resp 19 B/P (MAP) 147/71 (96) 147/71 147/71 142/96 (111) Pulse Ox 98 96 O2 Delivery Nasal Cannula Nasal Cannula O2 Flow Rate 4.0 4.0 02/28/20 02/28/20 02/28/20 02/28/20 17:17 19:00 20:00 21:26 Temp 97.4 97.4 Pulse 83 78 78 Resp 18 B/P (MAP) 142/96 113/77 (89) 113/77 Pulse Ox 99 O2 Delivery Nasal Cannula Nasal Cannula O2 Flow Rate 4.0 4.0 02/28/20 02/28/20 02/29/20 02/29/20 21:27 23:00 00:11 03:00 Temp 97.7 98.3 97.7 98.3 Pulse 78 74 78 77 Resp 18 18 B/P (MAP) 113/77 92/43 (59) 113/77 127/84 (98) Pulse Ox 98 100 O2 Delivery Nasal Cannula Nasal Cannula O2 Flow Rate 4.0 4.0 02/29/20 05:26 Pulse 77 B/P (MAP) 127/84 Intake and Output 02/28/20 02/28/20 02/29/20 15:00 23:00 07:00 Intake Total 260 ml 120 ml Balance 260 ml 120 ml Nutrition Consultation Dietary Evaluation: Recommendations by RD: Dietary education by RD, Increase Calorie Intake, Protein supplementation Comments: REC continue ADA/cardiac diet with glucerna bid Expected Outcomes/Goals: to meet >75% est nutrition and fluid needs- goal ongoing Malnutrition Findings: Food and Nutrition Intake (Mod: <75% est energy req 7days Weight Status: Morbidly Obese Fluid Accumulation (Non-Severe: Mild depletion SHARRON GRUBBS MD February 29, 2020 08:25
[2020-02-29] MEDS: ASPIRIN ENTERIC COATED 81 MG TABLET.DR. PO SCH (08:28)
[2020-02-29] MEDS: FUROSEMIDE 40 MG TABLET. PO SCH (08:28)
[2020-02-29] MEDS: AMOXICILLIN/K CLAV 875/125MG TABLET. PO SCH ×2 (08:28→21:01)
[2020-02-29] MEDS: ZINC SULFATE 220 MG CAPSULE. PO SCH (08:28)
[2020-02-29] MEDS: buPROPion SR 150 MG TABLET.SA PO SCH (08:29)
[2020-02-29] MEDS: CETIRIZINE HCL 10 MG TABLET. PO SCH (08:29)
[2020-02-29] MEDS: amLODIPine BESYLATE 10 MG TABLET PO SCH (08:29)
[2020-02-29] MEDS: METOPROLOL TART IMMED RELEASE 50 MG TABLET. PO SCH ×2 (08:29→21:00)
[2020-02-29] MEDS: LISINOPRIL 20 MG TABLET PO SCH (08:30)
[2020-02-29] MEDS: LACTOBACILLUS RHAMNOSUS GG 1 CAPSULE. PO SCH ×2 (08:30→21:01)
[2020-02-29] MEDS: FLUTICASONE 50MCG/NASAL SPRAY 16GM BOTTLE. NS SCH (09:00)
[2020-02-29 11:00] VITALS: BP 160/85
--- NOTE | 2020-02-29 11:14 | NUR ---
Pharmacy Warfarin Dosing Note S:Pharmacy consulted to assist with anticoagulation therapy started with target INR: 2 -3 O:MICHAELA COOPER is a 74 year old F with Atrial Fibrillation LABS: Last INR: 1.7 Last HGB: 10.1 Last HCT: 32.5 Last PLT: 289 Last dose of 9MG given on 02/28/20 at 1509 Previous Regimen: Vitamin K given: N Drug Interaction Changes: Ongoing Drug Interactions: ASA A:INR of 1.7 is below desired range. Target range for this patient is: 2 -3 P: Warfarin dose: 9 mg Today at 1600 Bridge Therapy: Enoxaparin 80 mg q12h Next INR due TOMORROW. Pharmacy anticoagulation service will continue to follow. BRYAN ALICIA RPH, 02/29/20 [id number]
--- NOTE | 2020-02-29 11:27 | PDOC ---
PROGRESS NOTES Subjective Subjective Feeling better. Objective Objective Vital Signs Date Time Temp Pulse Resp B/P (MAP) Pulse Ox O2 Delivery O2 Flow Rate FiO2 02/29/20 08:31 77 184/91 02/29/20 08:00 Nasal Cannula 2.5 02/29/20 07:00 18 99 02/29/20 03:00 98.3 98.3 Intake and Output 02/29/20 07:00 Intake Total 380 ml Balance 380 ml Intake Oral 380 ml # Voids 2 Physical Exam MUSCULOSKELETAL: Osteoarthritic changes both hands Assessment Assessment 1. Dizziness, nausea/vomiting: none further. Potentially from uncontrolled HTN. 2. Hypertensive urgency; blood pressure labile. Increase lisinopril dose for better control. 3. Acute on chronic diastolic CHF; Recent echo with preserved LV systolic function, better compensated 4. PAFIB vs chronic: AFIB rate controlled without any further episodes of bradycardia. Continue Coumadin for stroke prophylaxis. Will consider outpatient cardioversion. 5. Hyperlipidemia; statin therapy 6. Diabetes, II: Treat per IM 7. Recent COVID + with associated COPD; unknown date Plan Plan of Care Problems Medical Problems: (1) COVID-19 Status: Acute (2) Hypertensive urgency Status: Acute (3) Pneumonia Status: Acute (4) Vertigo Status: Acute Comment Review of Relevant I have reviewed the following items raman (where applicable) has been applied. Labs Laboratory Tests Test 02/28/20 12:03 02/28/20 16:45 02/28/20 22:44 02/29/20 04:00 Glucose (Fingerstick) 161 mg/dL (70-99) 170 mg/dL (70-99) 138 mg/dL (70-99) Prothrombin Time 19.3 SEC (11.7-14.0) Prothromb Time International Ratio 1.7 (0.8-1.1) Test 02/29/20 07:28 Glucose (Fingerstick) 135 mg/dL (70-99) Microbiology 02/23/20 Blood Culture - Final, Complete NO GROWTH AFTER 5 DAYS Medications Current Medications Enoxaparin Sodium (Lovenox 80mg Syringe) 80 mg Q12HR SQ Last administered on 02/29/20at 08:31; Start 02/28/20 at 12:15 Ergocalciferol (Vitamin D2) 50,000 unit QSA PO ; Start 02/29/20 at 16:00 Warfarin Sodium (Coumadin) 9 mg 1X WARF ONCE PO Last administered on 02/28/20at 17:16; Start 02/28/20 at 16:00; Stop 02/28/20 at 16:01; Status DC Warfarin Sodium (Coumadin) 9 mg 1X WARF ONCE PO ; Start 02/29/20 at 16:00; Stop 02/29/20 at 16:01 Vitals/I & O Vital Sign - Last 24 Hours 02/28/20 02/28/20 02/28/20 02/28/20 13:12 13:12 15:00 17:17 Temp 98.1 98.1 Pulse 94 94 83 83 Resp 19 B/P (MAP) 147/71 147/71 142/96 (111) 142/96 Pulse Ox 96 O2 Delivery Nasal Cannula O2 Flow Rate 4.0 02/28/20 02/28/20 02/28/20 02/28/20 19:00 20:00 21:26 21:27 Temp 97.4 97.4 Pulse 78 78 78 Resp 18 B/P (MAP) 113/77 (89) 113/77 113/77 Pulse Ox 99 O2 Delivery Nasal Cannula Nasal Cannula O2 Flow Rate 4.0 4.0 02/28/20 02/29/20 02/29/20 02/29/20 23:00 00:11 03:00 05:26 Temp 97.7 98.3 97.7 98.3 Pulse 74 78 77 77 Resp 18 18 B/P (MAP) 92/43 (59) 113/77 127/84 (98) 127/84 Pulse Ox 98 100 O2 Delivery Nasal Cannula Nasal Cannula O2 Flow Rate 4.0 4.0 02/29/20 02/29/20 02/29/20 02/29/20 07:00 08:00 08:29 08:29 Pulse 74 77 77 Resp 18 B/P (MAP) 184/91 (122) 127/84 127/84 Pulse Ox 99 O2 Delivery Nasal Cannula Nasal Cannula O2 Flow Rate 4.0 2.5 02/29/20 02/29/20 08:30 08:31 Pulse 77 77 B/P (MAP) 184/81 184/91 Intake and Output0 02/28/20 02/28/20 02/29/20 15:00 23:00 07:00 Intake Total 260 ml 120 ml Balance 260 ml 120 ml DOROTHEA MA MD February 29, 2020 11:27
[2020-02-29] MEDS ORDERED: LISINOPRIL 10 MG TABLET PO ONE (12:30)
[2020-02-29 15:00] VITALS: BP 130/81
[2020-02-29] MEDS ORDERED: WARFARIN 3 MG TABLET. PO ONE (16:00)
[2020-02-29] MEDS: ERGOCALCIFEROL (VITAMIN D2) 50,000 UNIT CAPSULE. PO SCH (16:54)
[2020-02-29 19:00] VITALS: BP 168/89
--- NOTE | 2020-02-29 19:18 | RAD ---
EXAM: CT Head without IV contrast INDICATION: Right eye visual loss. TECHNIQUE: Multi-detector row CT images were obtained of the head without the use of IV contrast. All CT scans performed at this facility utilize dose optimization techniques as appropriate to the exam, including the following: Automated exposure control and adjustment of the mA and/or KV according to patient size (this includes techniques or standardized protocols for targeted exams where dose is indication/reason for exam). COMPARISON: None FINDINGS: BRAIN PARENCHYMA: There is low density in the right cerebellum with mass effect with relative preservation of the gaston-white differentiation. Scattered white matter low density compatible with chronic ischemic microvascular change and a tiny lucency in the left basal ganglia compatible with lacunar infarct are noted. There is generalized parenchymal volume loss present. VENTRICLES & EXTRA-AXIAL SPACES: There is effacement of the fourth ventricle Basilar cisterns are patent. No pathologic extra-axial fluid collection or mass. ORBITS: Orbital contents are unremarkable. SINUSES: The left sphenoid sinus is opacified. There is mild mucosal thickening in the posterior right ethmoid air cells. OSSEOUS & SOFT TISSUES: Calvarium and skull base are intact. IMPRESSION: Superimposed on chronic ischemic microvascular changes is mass effect in the right cerebellum of concern for an underlying mass effacing the fourth ventricle. Consider MRI of the brain if further evaluation. Report telephoned to the inpatient floor where the patient's nurse DONATO Dumont took the telephone call on behalf of Dr. Mello Shoemaker at 7:12 PM on 02/29/2020. Electronically signed by: Morena Niño MD (02/29/2020 7:15 PM) [facility] [place]
--- NOTE | 2020-02-29 19:31 | PDOC2 ---
CONSULT Date of Consult Date of Consult DATE: 02/29/20 TIME: 19:31 Reason for Consult Reason for Consult: Dizziness Identification/Chief Complaint Chief Complaint SOB History of Present Illness Reason for Visit: This patient is 74-year-old woman with past medical history of multiple medical problems history of hypertension hyperlipidemia A fib on chronic anticoagulation cardiomyopathy congestive heart failure chronic obstructive pulmonary disease diabetes patient presented with complaint of for the last over 4 days. Patient has been tested for core and 19 positive. Patient is also having symptoms of dizziness. Patient denies any complaint of chest pain patient is being treated for pneumonia on antibiotics. Past Medical History Cardiovascular: AFIB, HTN, Hyperlipidemia Pulmonary: Asthma, COPD CENTRAL NERVOUS SYSTEM: Dementia GI: No pertinent hx Heme/Onc: B12 deficiency Hepatobiliary: No pertinent hx Psych: Depression Rheumatologic: No pertinent hx Infectious disease: No pertinent hx Renal/: No pertinent hx Endocrine: Diabetes Past Surgical History Past Surgical History: Appendectomy, Cholecystectomy, Tubal Ligation, Hysterectomy Family History Family History: Diabetes Social History ALCOHOL: none Drugs: None Lives: with Family Current Problem List Problem List Problems Medical Problems: (1) COVID-19 Status: Acute (2) Hypertensive urgency Status: Acute (3) Pneumonia Status: Acute (4) Vertigo Status: Acute Current Medications Current Medications Current Medications Ondansetron HCl (Zofran) 4 mg 1X ONCE IVP Last administered on 02/23/20at 19:43; Start 02/23/20 at 19:45; Stop 02/23/20 at 19:46; Status DC Meclizine HCl (Antivert) 25 mg 1X ONCE PO Last administered on 02/23/20at 19:44; Start 02/23/20 at 19:45; Stop 02/23/20 at 19:46; Status DC Sodium Chloride 1,000 ml @ 1,000 mls/hr Q1H IV Last administered on 02/23/20at 20:14; Start 02/23/20 at 19:28; Stop 02/23/20 at 20:27; Status DC Lorazepam (Ativan Inj) 1 mg 1X ONCE IVP Last administered on 02/23/20at 19:44; Start 02/23/20 at 19:45; Stop 02/23/20 at 19:46; Status DC Hydralazine HCl (Apresoline Inj) 10 mg 1X ONCE IVP Last administered on 02/23/20at 20:14; Start 02/23/20 at 20:00; Stop 02/23/20 at 20:03; Status DC Scopolamine (Transderm-Scop) 1 patch 1X ONCE TD Last administered on 02/23/20at 22:21; Start 02/23/20 at 22:30; Stop 02/23/20 at 22:31; Status DC Ceftriaxone Sodium (Rocephin) 1 gm 1X ONCE IVP Last administered on 02/23/20at 22:27; Start 02/23/20 at 22:30; Stop 02/23/20 at 22:31; Status DC Azithromycin (Zithromax) 500 mg 1X ONCE PO Last administered on 02/23/20at 22:26; Start 02/23/20 at 22:30; Stop 02/23/20 at 22:31; Status DC Hydralazine HCl (Apresoline Inj) 10 mg 1X ONCE IVP Last administered on 02/23/20at 23:12; Start 02/23/20 at 23:30; Stop 02/23/20 at 23:31; Status DC Ondansetron HCl (Zofran) 4 mg PRN Q8HRS PRN IV NAUSEA/VOMITING 1ST CHOICE; Start 02/23/20 at 23:00; Stop 02/24/20 at 22:59; Status DC Acetaminophen (Tylenol) 650 mg PRN Q4HRS PRN PO FEVER > 100.3'F; Start 02/23/20 at 23:00; Stop 02/24/20 at 12:22; Status DC Albuterol/ Ipratropium (Duoneb) 3 ml RTQID NEB ; Start 02/24/20 at 08:00; Stop 02/24/20 at 09:21; Status DC Albuterol/ Ipratropium (Duoneb) 3 ml 1X ONCE NEB ; Start 02/23/20 at 23:45; Stop 02/23/20 at 23:46; Status DC Clonidine HCl (Catapres) 0.2 mg 1X ONCE PO Last administered on 02/24/20at 00:47; Start 02/24/20 at 01:00; Stop 02/24/20 at 01:01; Status DC Albuterol/ Ipratropium (Duoneb) 3 ml PRN Q4HRS PRN NEB SHORTNESS OF BREATH; Start 02/24/20 at 09:30; Stop 02/25/20 at 09:29; Status DC Hydralazine HCl (Apresoline Inj) 10 mg PRN Q4HRS PRN IVP ELEVATED BP, SEE CO MMENTS; Start 02/24/20 at 09:45; Stop 02/27/20 at 03:42; Status DC Piperacillin Sod/ Tazobactam Sod 3.375 gm/Sodium Chloride 50 ml @ 100 mls/hr Q6HRS IV Last administered on 02/26/20at 05:53; Start 02/24/20 at 12:00; Stop 02/26/20 at 10:11; Status DC Linezolid/Dextrose 300 ml @ 300 mls/hr Q12HR IV Last administered on 02/26/20at 08:55; Start 02/24/20 at 11:00; Stop 02/26/20 at 10:11; Status DC Acetaminophen (Tylenol) 650 mg PRN Q6HRS PRN PO HEADACHE/TEMP Last administered on 02/26/20at 21:38; Start 02/24/20 at 12:15 Aspirin (Ecotrin) 81 mg DAILY PO Last administered on 02/29/20at 08:28; Start 02/25/20 at 09:00 Atorvastatin Calcium (Lipitor) 20 mg QHS PO Last administered on 02/28/20at 21:27; Start 02/24/20 at 21:00 Bupropion HCl (Wellbutrin Sr) 150 mg DAILY PO Last administered on 02/29/20at 08:29; Start 02/25/20 at 09:00 Digoxin (Lanoxin) 125 mcg DAILY PO ; Start 02/25/20 at 09:00; Stop 02/24/20 at 16:58; Status DC Diltiazem HCl (Cardizem 24hr Cd) 300 mg DAILY PO ; Start 02/25/20 at 09:00; Stop 02/24/20 at 16:58; Status DC Ergocalciferol (Vitamin D2) 50,000 unit QSA PO Last administered on 02/29/20at 16:54; Start 02/29/20 at 16:00 Fluticasone Propionate (Flonase) 2 spray DAILY NS Last administered on 02/29/20at 09:00; Start 02/25/20 at 09:00 Furosemide (Lasix) 40 mg DAILY PO Last administered on 02/29/20at 08:28; Start 02/25/20 at 09:00 Hydralazine HCl (Apresoline) 25 mg TID PO Last administered on 02/26/20at 08:56; Start 02/24/20 at 14:00; Stop 02/26/20 at 11:53; Status DC Lisinopril (Prinivil) 10 mg DAILY PO ; Start 02/25/20 at 09:00; Stop 02/24/20 at 16:58; Status DC Metoprolol Tartrate (Lopressor) 75 mg BID PO Last administered on 02/26/20at 08:56; Start 02/24/20 at 21:00; Stop 02/26/20 at 16:25; Status DC Warfarin Sodium (Coumadin) 0.5 mg DAILY PO ; Start 02/25/20 at 09:00; Stop 02/24/20 at 13:04; Status DC Warfarin Sodium (Coumadin) 6 mg DAILY16 PO ; Start 02/24/20 at 16:00; Status UNV Insulin Human Lispro (HumaLOG) 15 units TIDWMEALS SQ Last administered on 02/29/20at 16:58; Start 02/24/20 at 17:00 Loperamide HCl (Imodium) 2 mg PRN Q15MIN PRN PO DIARRHEA; Start 02/24/20 at 12:45 Cetirizine HCl (ZyrTEC) 10 mg DAILY PO Last administered on 02/29/20at 08:29; Start 02/25/20 at 09:00 Warfarin Sodium (Coumadin Per Pharmacy) 1 each PRN DAILY PRN MC SEE COMMENTS Last administered on 02/29/20at 11:05; Start 02/24/20 at 12:45 Warfarin Sodium (Coumadin) 4 mg 1X WARF ONCE PO Last administered on 02/24/20at 17:27; Start 02/24/20 at 16:00; Stop 02/24/20 at 16:01; Status DC Furosemide (Lasix) 40 mg 1X ONCE IVP Last administered on 02/24/20at 17:25; Start 02/24/20 at 17:00; Stop 02/24/20 at 17:01; Status DC Digoxin (Lanoxin) 125 mcg DAILY PO Last administered on 02/26/20at 08:57; Start 02/24/20 at 17:00; Stop 02/26/20 at 16:25; Status DC Diltiazem HCl (Cardizem 24hr Cd) 300 mg DAILY PO Last administered on 02/26/20at 08:57; Start 02/24/20 at 17:00; Stop 02/26/20 at 16:25; Status DC Lisinopril (Prinivil) 10 mg DAILY PO Last administered on 02/27/20at 09:02; Start 02/24/20 at 17:00; Stop 02/28/20 at 08:56; Status DC Ondansetron HCl (Zofran) 4 mg PRN Q6HRS PRN IVP NAUSEA/VOMITING Last administered on 02/25/20at 11:41; Start 02/25/20 at 11:30; Stop 02/27/20 at 03:42; Status DC Warfarin Sodium (Coumadin) 6 mg 1X WARF ONCE PO Last administered on 02/25/20at 17:21; Start 02/25/20 at 16:00; Stop 02/25/20 at 16:01; Status DC Lactobacillus Rhamnosus (Culturelle) 1 cap BID PO Last administered on 02/29/20at 08:30; Start 02/25/20 at 21:00 Amoxicillin/ Clavulanate Potassium (Augmentin 875/ 125mg) 1 tab BID PO Last a dministered on 02/29/20at 08:28; Start 02/26/20 at 21:00; Stop 03/01/20 at 21:59 Hydralazine HCl (Apresoline) 50 mg TID PO Last administered on 02/26/20at 13:34; Start 02/26/20 at 14:00; Stop 02/26/20 at 16:25; Status DC Zinc Sulfate (Orazinc) 220 mg DAILY PO Last administered on 02/29/20at 08:28; Start 02/27/20 at 09:00 Latanoprost (Xalatan) 1 drop QHS OU Last administered on 02/28/20at 21:00; Start 02/26/20 at 12:45 Diltiazem HCl (Cardizem 24hr Cd) 300 mg DAILYWLUN PO ; Start 02/27/20 at 12:00; Stop 02/28/20 at 08:56; Status DC Hydralazine HCl (Apresoline) 75 mg TID PO Last administered on 02/29/20 14:42; Start 02/26/20 at 21:00 Metoprolol Tartrate (Lopressor) 50 mg BID PO Last administered on 02/29/20at 08:29; Start 02/27/20 at 21:00 Amlodipine Besylate (Norvasc) 10 mg DAILY ONCE PO ; Start 02/28/20 at 09:00; Stop 02/27/20 at 11:57; Status DC Nitroglycerin (Nitro-Bid Oint) 1 inch Q6HRS TP Last administered on 02/29/20at 16:56; Start 02/27/20 at 12:00 Amlodipine Besylate (Norvasc) 10 mg 1X ONCE PO Last administered on 02/27/20at 12:28; Start 02/27/20 at 12:00; Stop 02/27/20 at 12:01; Status DC Ondansetron HCl (Zofran Odt) 4 mg PRN Q6HRS PRN PO NAUSEA/VOMITING Last administered on 02/27/20at 15:08; Start 02/27/20 at 13:15 Prochlorperazine Edisylate (Compazine) 10 mg PRN Q6HRS PRN IM NAUSEA/VOMITING Last administered on 02/29/20at 18:55; Start 02/27/20 at 13:15 Metoprolol Tartrate (Lopressor) 50 mg 1X ONCE PO ; Start 02/27/20 at 14:00; Stop 02/27/20 at 14:01; Status DC Amlodipine Besylate (Norvasc) 10 mg DAILY PO Last administered on 02/29/20at 08:29; Start 02/28/20 at 09:00 Warfarin Sodium (Coumadin) 6 mg 1X WARF ONCE PO Last administered on 02/27/20at 15:09; Start 02/27/20 at 16:00; Stop 02/27/20 at 16:01; Status DC Lisinopril (Prinivil) 20 mg DAILY PO Last administered on 02/29/20at 08:30; Start 02/28/20 at 09:00; Stop 02/29/20 at 11:28; Status DC Enoxaparin Sodium (Lovenox 80mg Syringe) 80 mg Q12HR SQ Last administered on 5/16/20at 08:31; Start 02/28/20 at 12:15 Warfarin Sodium (Coumadin) 9 mg 1X WARF ONCE PO Last administered on 02/28/20at 17:16; Start 02/28/20 at 16:00; Stop 02/28/20 at 16:01; Status DC Warfarin Sodium (Coumadin) 9 mg 1X WARF ONCE PO Last administered on 02/29/20at 16:55; Start 02/29/20 at 16:00; Stop 02/29/20 at 16:01; Status DC Lisinopril (Prinivil) 40 mg DAILY PO ; Start 03/01/20 at 09:00 Lisinopril (Prinivil) 20 mg 1X ONCE PO Last administered on 02/29/20at 14:42; Start 02/29/20 at 12:30; Stop 02/29/20 at 12:31; Status DC Active Scripts Active Atorvastatin Calcium 20 Mg Tablet 20 Mg PO QHS 30 Days Lisinopril 10 Mg Tablet 10 Mg PO DAILY 30 Days Tylenol (Acetaminophen) 325 Mg Tablet 650 Mg PO PRN Q6HRS PRN 30 Days Coumadin (Warfarin Sodium) 3 Mg Tablet 6 Mg PO DAILY16 30 Days Diltiazem 24HR Cd (Diltiazem Hcl) 300 Mg Cap.er.24h 300 Mg PO DAILY 30 Days Lanoxin (Digoxin) 125 Mcg Tablet 125 Mcg PO DAILY 30 Days [Albuterol Sulfate] 2.5 MG/3 ML Nebu 2.5 Mg NEB PRN Q4HRS PRN Reported Ventolin Hfa Inhaler (Albuterol Sulfate) 18 Gm Hfa.aer.ad 2 Puff INH Q4HRS Combivent Respimat Inhal (Ipratropium/Albuterol Sulfate) 4 Gm Aer.w.adap 2 Inh IH QID Loratadine 10 Mg Tablet 10 Mg PO DAILY Loperamide (Loperamide Hcl) 2 Mg Tablet 2 Mg PO PRN Q4HRS PRN Furosemide 40 Mg Tablet 40 Mg PO DAILY Metoprolol Tartrate 50 Mg Tablet 75 Mg PO BID Warfarin Sodium 1 Mg Tablet 0.5 Mg PO DAILY Hydralazine Hcl 25 Mg Tablet 1 Tab PO TID Wellbutrin Sr (Bupropion Hcl) 150 Mg Tablet.er 150 Mg PO DAILY Novolog (Insulin Aspart) 100 Unit/1 Ml Cartridge 15 Unit SQ TID Aspirin Ec (Aspirin) 81 Mg Tablet.dr 1 Tab PO DAILY Fluticasone Propionate Nasal [place] (Fluticasone Propionate) 16 Gm [place].susp 2 [place] NS DAILY LAST DOSE GIVEN: DATE: 10-13-15 TIME: 9 am NEXT DOSE DUE: DATE: 10-14-15 TIME: 9 am Vitamin D2 (Ergocalciferol (Vitamin D2)) 50,000 Unit Capsule 1 Cap PO QSA Allergies Allergies: Coded Allergies: fexofenadine (Verified Allergy, Intermediate, Palpitations, 10/04/15) " tachycardia" Physical Exam Physical Exam exam done over [facility] no acute distress. HEENT: Normocephalic and atraumatic. NEUROLOGIC: Mental status Alert able to tell her name intact extraocular movements. No facial asymmetry. tongue protrudes in midline. Coordination + dysmetria Strength able to move all exts Gait in bed. A 10-point review of systems was obtained. Other than the history of present illness the remainder of the review of systems is negative. Vitals VITALS Vital Signs Date Time Temp Pulse Resp B/P (MAP) Pulse Ox O2 Delivery O2 Flow Rate FiO2 02/29/20 16:56 78 130/81 02/29/20 15:00 98.0 18 95 Nasal Cannula 4.0 98.0 Labs Labs Laboratory Tests Test 02/27/20 21:23 02/28/20 04:05 02/28/20 07:41 02/28/20 12:03 Glucose (Fingerstick) 150 mg/dL (70-99) 140 mg/dL (70-99) 161 mg/dL (70-99) Prothrombin Time 16.7 SEC (11.7-14.0) Prothromb Time International Ratio 1.4 (0.8-1.1) Test 02/28/20 16:45 02/28/20 22:44 02/29/20 04:00 02/29/20 07:28 Glucose (Fingerstick) 170 mg/dL (70-99) 138 mg/dL (70-99) 135 mg/dL (70-99) Prothrombin Time 19.3 SEC (11.7-14.0) Prothromb Time International Ratio 1.7 (0.8-1.1) Test 02/29/20 11:41 02/29/20 17:04 Glucose (Fingerstick) 187 mg/dL (70-99) 174 mg/dL (70-99) Laboratory Tests Test 02/28/20 22:44 02/29/20 04:00 02/29/20 07:28 02/29/20 11:41 Glucose (Fingerstick) 138 mg/dL (70-99) 135 mg/dL (70-99) 187 mg/dL (70-99) Prothrombin Time 19.3 SEC (11.7-14.0) Prothromb Time International Ratio 1.7 (0.8-1.1) Test 02/29/20 17:04 Glucose (Fingerstick) 174 mg/dL (70-99) Assessment/Plan Assessment/Plan This patient is 74-year-old woman with past medical history of multiple medical problems history of hypertension hyperlipidemia A fib on chronic anticoagulation cardiomyopathy congestive heart failure chronic obstructive pulmonary disease diabetes patient presented with complaint of for the last over 4 days. Patient has been tested for core and 19 positive. Patient is also having symptoms of dizziness. Patient denies any complaint of chest pain patient is being treated for pneumonia on antibiotics. Will check CT scan brain to evaluate for any acute intracranial etiology. Further workup depending on initial test results. Cough, chronic obstructive pulmonary disease, with positive, on antibiotics, ID recommendations appreciated. Hypertension continue treat and monitor hyperlipidemia on statin. A fib on chronic anticoagulation chronic obstructive pulmonary disease, depression, diabetes continue PT OT speech evaluation. medical management RIC KING MD February 29, 2020 19:31
[2020-02-29] MEDS: LATANOPROST 0.005% OPHTH SOLUTION 2.5ML BOTTLE. OU SCH (21:00)
[2020-02-29] MEDS: ATORVASTATIN CALCIUM 20 MG TABLET PO SCH (21:01)
[2020-02-29 23:00] VITALS: BP 155/89
[2020-03-01] VITALS (7 sets, daily range): BP systolic 134–195; BP diastolic 77–156
[2020-03-01] MEDS: NITROGLYCERIN OINT 1 GM PACKET. TP SCH ×4 (00:21→17:59)
[2020-03-01 07:22] LABS: PROTHROMBIN TIME PATIENT 21.6 SEC (11.7-14.0)
--- NOTE | 2020-03-01 08:12 | PDOC ---
PROGRESS NOTES Chief Complaint Chief Complaint A/P: Cough - with shortness of breath. diffuse wheezing not initially responsive to nebulizers, will treat inpatient for acute bronchitis/COPD exacerbation. IV steroids, nebs Diarrhea - will monitor, psyllium HTN - cont meds Hyperlipidemia - cont statin AFIB - on BB and coumadin, will continue, monitor INR CHF - unknown if ischemic cardiomyopathy, seems compensated currently Acute exacerbation of COPD - as above Depression - cont meds DM2 - basal bolus plus insulin while inpatient Visual blurring - likely glaucoma, difficult to test pressure here, will trial on lananoprost (prostaglandin) daily Discoodination, loss of balance - concerning for cerebellar ataxia, d/w PT, will consult neurology Mass in the right cerebellum with mass effect Cerebral chronic ischemic microvascular changes Left basal ganglia lacunar infarct FEN - ADA diet PPX - lovenox FULL CODE Dispo - inpatient 2 midnights. History of Present Illness History of Present Illness Ms Yang is a 74 yo F resident of [facility] w/ PMHx HTN, Hyperlipidemia, AFIB, valvular insufficiency, CHF, cardiomyopathy, COPD, Depression, DM2 who p/w cough, shortness of breath, diarrhea for the last 3-4 days. was recently tested for COVID-19 and was positive. Now, she has nausea, vomiting, and diarrhea. She has some associated dizziness. This has been occurring off and on for a few days, worse with moving, better with sitting still. She gets fatigued easily. Her dizziness worsens with change in position. She has underlying COPD, but states her shortness of breath is worse. While in the ER, she is noted to have a low-grade temperature of 100.5. She also has a mild white count elevation 13K. Chest x-ray is showing a possible atypical pneumonia. Was called for admission for further treatment In ED noted in afib, normal troponin. CXR with no acute findings. BNP 1212, K 5.2, Cr 1.1, glucose 173. Admitted for further care of Hypertensive urgency. Chest x-ray showed bilateral diffuse interstitial infiltrate and cardiomegaly. The patient received Rocephin and azithromycin 1 dose each from the ER. 02/24: States her breathing is okay, although she is normally not on oxygen. She is requiring 3 L of oxygen. Denies now any nausea, vomiting, or diarrhea which she has had, she says. Denies any abdominal pain, urinary symptoms, headache, or visual symptoms. 02/25: She is complaining blurred vision in her right eye today. No focal neurologic deficits otherwise. She lost IV access, has been converted to p.o. antibiotics and p.o. antihypertensives. 02/26: Overnight bradycardic, metoprolol had been increased to 75 mg, now reduced to 25 mg twice daily, still has Cardizem 300 mg daily. Lost IV access. SBP 198 today. HR in the 80s. Still feels very weak. 02/27: BP better controlled. On amlodipine 10 mg, lisinopril 20 mg, metoprolol. Still hypoxic still very weak still with some right eye blurring. She says she feels terrible and tired. 02/28: Overnight no events. Afebrile BP better controlled. Still hypoxic. Still with blurred vision in her right eye. Still dizzy and nauseated. 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 Neuro consult. Overnight no events. Afebrile. BP controlled. Still hypoxic. Uncoordination and right visual blurring persist. CT results concerning for possible right cerebellar mass and left basal ganglia infarct. Plan: Will add lovenox, suptherapeutic INR. Monitor BP Rehab modalities Formal visual examination, no clear signs of increased ocular pressure, no response to topical treatment. Vitals Vitals Vital Signs Date Time Temp Pulse Resp B/P (MAP) Pulse Ox O2 Delivery O2 Flow Rate FiO2 03/01/20 05:49 82 155/89 03/01/20 03:00 97.2 18 97 97.2 02/29/20 19:34 Nasal Cannula 4.0 Physical Exam Physical Exam GENERAL: Alert, oriented female, not in any distress. Coop HEENT: Both pupils are round and reacting. No conjunctival lesion, no lesion in the mouth. NECK: Supple, no JVP, no lymphadenopathy. LUNGS: Clear. HEART: S1, S2 regular. ABDOMEN: Benign. EXTREMITIES: No edema or cyanosis. SKIN: Unremarkable. NEUROLOGIC: The patient is alert, awake, and appropriate. No focal neurologic deficit. Lungs: Clear Labs LABS Laboratory Tests Test 02/29/20 11:41 02/29/20 17:04 02/29/20 20:42 03/01/20 07:40 Glucose (Fingerstick) 187 mg/dL (70-99) 174 mg/dL (70-99) 173 mg/dL (70-99) 141 mg/dL (70-99) Assessment and Plan Assessmemt and Plan Problems Medical Problems: (1) COVID-19 Status: Acute (2) Hypertensive urgency Status: Acute (3) Pneumonia Status: Acute (4) Vertigo Status: Acute Comment Review of Relevant I have reviewed the following items raman (where applicable) has been applied. Labs Laboratory Tests Test 02/28/20 12:03 02/28/20 16:45 02/28/20 22:44 02/29/20 04:00 Glucose (Fingerstick) 161 mg/dL (70-99) 170 mg/dL (70-99) 138 mg/dL (70-99) Prothrombin Time 19.3 SEC (11.7-14.0) Prothromb Time International Ratio 1.7 (0.8-1.1) Test 02/29/20 07:28 02/29/20 11:41 02/29/20 17:04 02/29/20 20:42 Glucose (Fingerstick) 135 mg/dL (70-99) 187 mg/dL (70-99) 174 mg/dL (70-99) 173 mg/dL (70-99) Test 03/01/20 07:40 Glucose (Fingerstick) 141 mg/dL (70-99) Laboratory Tests Test 02/29/20 11:41 02/29/20 17:04 02/29/20 20:42 03/01/20 07:40 Glucose (Fingerstick) 187 mg/dL (70-99) 174 mg/dL (70-99) 173 mg/dL (70-99) 141 mg/dL (70-99) Microbiology 02/23/20 Blood Culture - Final, Complete NO GROWTH AFTER 5 DAYS Medications Current Medications Ondansetron HCl (Zofran) 4 mg 1X ONCE IVP Last administered on 02/23/20at 19:43; Start 02/23/20 at 19:45; Stop 02/23/20 at 19:46; Status DC Meclizine HCl (Antivert) 25 mg 1X ONCE PO Last administered on 02/23/20at 19:44; Start 02/23/20 at 19:45; Stop 02/23/20 at 19:46; Status DC Sodium Chloride 1,000 ml @ 1,000 mls/hr Q1H IV Last administered on 02/23/20at 20:14; Start 02/23/20 at 19:28; Stop 02/23/20 at 20:27; Status DC Lorazepam (Ativan Inj) 1 mg 1X ONCE IVP Last administered on 02/23/20at 19:44; Start 02/23/20 at 19:45; Stop 02/23/20 at 19:46; Status DC Hydralazine HCl (Apresoline Inj) 10 mg 1X ONCE IVP Last administered on 02/23/20at 20:14; Start 02/23/20 at 20:00; Stop 02/23/20 at 20:03; Status DC Scopolamine (Transderm-Scop) 1 patch 1X ONCE TD Last administered on 02/23/20at 22:21; Start 02/23/20 at 22:30; Stop 02/23/20 at 22:31; Status DC Ceftriaxone Sodium (Rocephin) 1 gm 1X ONCE IVP Last administered on 02/23/20at 22:27; Start 02/23/20 at 22:30; Stop 02/23/20 at 22:31; Status DC Azithromycin (Zithromax) 500 mg 1X ONCE PO Last administered on 02/23/20at 22:26; Start 02/23/20 at 22:30; Stop 02/23/20 at 22:31; Status DC Hydralazine HCl (Apresoline Inj) 10 mg 1X ONCE IVP Last administered on 02/23/20at 23:12; Start 02/23/20 at 23:30; Stop 02/23/20 at 23:31; Status DC Ondansetron HCl (Zofran) 4 mg PRN Q8HRS PRN IV NAUSEA/VOMITING 1ST CHOICE; Start 02/23/20 at 23:00; Stop 02/24/20 at 22:59; Status DC Acetaminophen (Tylenol) 650 mg PRN Q4HRS PRN PO FEVER > 100.3'F; Start 02/23/20 at 23:00; Stop 02/24/20 at 12:22; Status DC Albuterol/ Ipratropium (Duoneb) 3 ml RTQID NEB ; Start 02/24/20 at 08:00; Stop 02/24/20 at 09:21; Status DC Albuterol/ Ipratropium (Duoneb) 3 ml 1X ONCE NEB ; Start 02/23/20 at 23:45; Stop 02/23/20 at 23:46; Status DC Clonidine HCl (Catapres) 0.2 mg 1X ONCE PO Last administered on 02/24/20at 00:47; Start 02/24/20 at 01:00; Stop 02/24/20 at 01:01; Status DC Albuterol/ Ipratropium (Duoneb) 3 ml PRN Q4HRS PRN NEB SHORTNESS OF BREATH; Start 02/24/20 at 09:30; Stop 02/25/20 at 09:29; Status DC Hydralazine HCl (Apresoline Inj) 10 mg PRN Q4HRS PRN IVP ELEVATED BP, SEE COMMENTS; Start 02/24/20 at 09:45; Stop 02/27/20 at 03:42; Status DC Piperacillin Sod/ Tazobactam Sod 3.375 gm/Sodium Chloride 50 ml @ 100 mls/hr Q6HRS IV Last administered on 02/26/20at 05:53; Start 02/24/20 at 12:00; Stop 02/26/20 at 10:11; Status DC Linezolid/Dextrose 300 ml @ 300 mls/hr Q12HR IV Last administered on 02/26/20at 08:55; Start 02/24/20 at 11:00; Stop 02/26/20 at 10:11; Status DC Acetaminophen (Tylenol) 650 mg PRN Q6HRS PRN PO HEADACHE/TEMP Last administered on 02/26/20at 21:38; Start 02/24/20 at 12:15 Aspirin (Ecotrin) 81 mg DAILY PO Last administered on 02/29/20at 08:28; Start 02/25/20 at 09:00 Atorvastatin Calcium (Lipitor) 20 mg QHS PO Last administered on 02/29/20at 21:01; Start 02/24/20 at 21:00 Bupropion HCl (Wellbutrin Sr) 150 mg DAILY PO Last administered on 02/29/20at 08:29; Start 02/25/20 at 09:00 Digoxin (Lanoxin) 125 mcg DAILY PO ; Start 02/25/20 at 09:00; Stop 02/24/20 at 16:58; Status DC Diltiazem HCl (Cardizem 24hr Cd) 300 mg DAILY PO ; Start 02/25/20 at 09:00; Stop 02/24/20 at 16:58; Status DC Ergocalciferol (Vitamin D2) 50,000 unit QSA PO Last administered on 02/29/20at 16:54; Start 02/29/20 at 16:00 Fluticasone Propionate (Flonase) 2 spray DAILY NS Last administered on 02/29/20at 09:00; Start 02/25/20 at 09:00 Furosemide (Lasix) 40 mg DAILY PO Last administered on 02/29/20at 08:28; Start 02/25/20 at 09:00 Hydralazine HCl (Apresoline) 25 mg TID PO Last administered on 02/26/20at 08:56; Start 02/24/20 at 14:00; Stop 02/26/20 at 11:53; Status DC Lisinopril (Prinivil) 10 mg DAILY PO ; Start 02/25/20 at 09:00; Stop 02/24/20 at 16:58; Status DC Metoprolol Tartrate (Lopressor) 75 mg BID PO Last administered on 02/26/20at 08:56; Start 02/24/20 at 21:00; Stop 02/26/20 at 16:25; Status DC Warfarin Sodium (Coumadin) 0.5 mg DAILY PO ; Start 02/25/20 at 09:00; Stop 02/24/20 at 13:04; Status DC Warfarin Sodium (Coumadin) 6 mg DAILY16 PO ; Start 02/24/20 at 16:00; Status UNV Insulin Human Lispro (HumaLOG) 15 units TIDWMEALS SQ Last administered on 02/29/20at 16:58; Start 02/24/20 at 17:00 Loperamide HCl (Imodium) 2 mg PRN Q15MIN PRN PO DIARRHEA; Start 02/24/20 at 12:45 Cetirizine HCl (ZyrTEC) 10 mg DAILY PO Last administered on 02/29/20at 08:29; Start 02/25/20 at 09:00 Warfarin Sodium (Coumadin Per Pharmacy) 1 each PRN DAILY PRN MC SEE COMMENTS Last administered on 02/29/20 11:05; Start 02/24/20 at 12:45 Warfarin Sodium (Coumadin) 4 mg 1X WARF ONCE PO Last administered on 02/24/20at 17:27; Start 02/24/20 at 16:00; Stop 02/24/20 at 16:01; Status DC Furosemide (Lasix) 40 mg 1X ONCE IVP Last administered on 02/24/20 17:25; Start 02/24/20 at 17:00; Stop 02/24/20 at 17:01; Status DC Digoxin (Lanoxin) 125 mcg DAILY PO Last administered on 02/26/20 08:57; Start 02/24/20 at 17:00; Stop 02/26/20 at 16:25; Status DC Diltiazem HCl (Cardizem 24hr Cd) 300 mg DAILY PO Last administered on 02/26/20at 08:57; Start 02/24/20 at 17:00; Stop 02/26/20 at 16:25; Status DC Lisinopril (Prinivil) 10 mg DAILY PO Last administered on 02/27/20at 09:02; Start 02/24/20 at 17:00; Stop 02/28/20 at 08:56; Status DC Ondansetron HCl (Zofran) 4 mg PRN Q6HRS PRN IVP NAUSEA/VOMITING Last administered on 02/25/20at 11:41; Start 02/25/20 at 11:30; Stop 02/27/20 at 03:42; Status DC Warfarin Sodium (Coumadin) 6 mg 1X WARF ONCE PO Last administered on 02/25/20at 17:21; Start 02/25/20 at 16:00; Stop 02/25/20 at 16:01; Status DC Lactobacillus Rhamnosus (Culturelle) 1 cap BID PO Last administered on 02/29/20at 21:01; Start 02/25/20 at 21:00 Amoxicillin/ Clavulanate Potassium (Augmentin 875/ 125mg) 1 tab BID PO Last administered on 02/29/20at 21:01; Start 02/26/20 at 21:00; Stop 03/01/20 at 21:59 Hydralazine HCl (Apresoline) 50 mg TID PO Last administered on 02/26/20at 13:34; Start 02/26/20 at 14:00; Stop 02/26/20 at 16:25; Status DC Zinc Sulfate (Orazinc) 220 mg DAILY PO Last administered on 02/29/20at 08:28; Start 02/27/20 at 09:00 Latanoprost (Xalatan) 1 drop QHS OU Last administered on 02/29/20at 21:00; Start 02/26/20 at 12:45 Diltiazem HCl (Cardizem 24hr Cd) 300 mg DAILYWLUN PO ; Start 02/27/20 at 12:00; Stop 02/28/20 at 08:56; Status DC Hydralazine HCl (Apresoline) 75 mg TID PO Last administered on 02/29/20at 20:59; Start 02/26/20 at 21:00 Metoprolol Tartrate (Lopressor) 50 mg BID PO Last administered on 02/29/20at 21:00; Start 02/27/20 at 21:00 Amlodipine Besylate (Norvasc) 10 mg DAILY ONCE PO ; Start 02/28/20 at 09:00; Stop 02/27/20 at 11:57; Status DC Nitroglycerin (Nitro-Bid Oint) 1 inch Q6HRS TP Last administered on 03/01/20at 05:49; Start 02/27/20 at 12:00 Amlodipine Besylate (Norvasc) 10 mg 1X ONCE PO Last administered on 02/27/20at 12:28; Start 02/27/20 at 12:00; Stop 02/27/20 at 12:01; Status DC Ondansetron HCl (Zofran Odt) 4 mg PRN Q6HRS PRN PO NAUSEA/VOMITING Last administered on 02/27/20at 15:08; Start 02/27/20 at 13:15 Prochlorperazine Edisylate (Compazine) 10 mg PRN Q6HRS PRN IM NAUSEA/VOMITING Last administered on 02/29/20at 18:55; Start 02/27/20 at 13:15 Metoprolol Tartrate (Lopressor) 50 mg 1X ONCE PO ; Start 02/27/20 at 14:00; Stop 02/27/20 at 14:01; Status DC Amlodipine Besylate (Norvasc) 10 mg DAILY PO Last administered on 02/29/20at 08:29; Start 02/28/20 at 09:00 Warfarin Sodium (Coumadin) 6 mg 1X WARF ONCE PO Last administered on 02/27/20at 15:09; Start 02/27/20 at 16:00; Stop 02/27/20 at 16:01; Status DC Lisinopril (Prinivil) 20 mg DAILY PO Last administered on 02/29/20at 08:30; Start 02/28/20 at 09:00; Stop 02/29/20 at 11:28; Status DC Enoxaparin Sodium (Lovenox 80mg Syringe) 80 mg Q12HR SQ Last administered on 02/29/20at 20:58; Start 02/28/20 at 12:15 Warfarin Sodium (Coumadin) 9 mg 1X WARF ONCE PO Last administered on 02/28/20at 17:16; Start 02/28/20 at 16:00; Stop 02/28/20 at 16:01; Status DC Warfarin Sodium (Coumadin) 9 mg 1X WARF ONCE PO Last administered on 02/29/20at 16:55; Start 02/29/20 at 16:00; Stop 02/29/20 at 16:01; Status DC Lisinopril (Prinivil) 40 mg DAILY PO ; Start 03/01/20 at 09:00 Lisinopril (Prinivil) 20 mg 1X ONCE PO Last administered on 02/29/20at 14:42; Start 02/29/20 at 12:30; Stop 02/29/20 at 12:31; Status DC Active Scripts Active Atorvastatin Calcium 20 Mg Tablet 20 Mg PO QHS 30 Days Lisinopril 10 Mg Tablet 10 Mg PO DAILY 30 Days Tylenol (Acetaminophen) 325 Mg Tablet 650 Mg PO PRN Q6HRS PRN 30 Days Coumadin (Warfarin Sodium) 3 Mg Tablet 6 Mg PO DAILY16 30 Days Diltiazem 24HR Cd (Diltiazem Hcl) 300 Mg Cap.er.24h 300 Mg PO DAILY 30 Days Lanoxin (Digoxin) 125 Mcg Tablet 125 Mcg PO DAILY 30 Days [Albuterol Sulfate] 2.5 MG/3 ML Nebu 2.5 Mg NEB PRN Q4HRS PRN Reported Ventolin Hfa Inhaler (Albuterol Sulfate) 18 Gm Hfa.aer.ad 2 Puff INH Q4HRS Combivent Respimat Inhal (Ipratropium/Albuterol Sulfate) 4 Gm Aer.w.adap 2 Inh IH QID Loratadine 10 Mg Tablet 10 Mg PO DAILY Loperamide (Loperamide Hcl) 2 Mg Tablet 2 Mg PO PRN Q4HRS PRN Furosemide 40 Mg Tablet 40 Mg PO DAILY Metoprolol Tartrate 50 Mg Tablet 75 Mg PO BID Warfarin Sodium 1 Mg Tablet 0.5 Mg PO DAILY Hydralazine Hcl 25 Mg Tablet 1 Tab PO TID Wellbutrin Sr (Bupropion Hcl) 150 Mg Tablet.er 150 Mg PO DAILY Novolog (Insulin Aspart) 100 Unit/1 Ml Cartridge 15 Unit SQ TID Aspirin Ec (Aspirin) 81 Mg Tablet.dr 1 Tab PO DAILY Fluticasone Propionate Nasal Eunice (Fluticasone Propionate) 16 Gm Eunice.susp 2 Eunice NS DAILY LAST DOSE GIVEN: DATE: 10-13-15 TIME: 9 am NEXT DOSE DUE: DATE: 10-14-15 TIME: 9 am Vitamin D2 (Ergocalciferol (Vitamin D2)) 50,000 Unit Capsule 1 Cap PO QSA Vitals/I & O Vital Sign - Last 24 Hours 02/29/20 02/29/20 02/29/20 02/29/20 08:29 08:29 08:30 08:31 Pulse 77 77 77 77 B/P (MAP) 127/84 127/84 184/81 184/91 02/29/20 02/29/20 02/29/20 02/29/20 11:00 14:42 14:42 14:42 Pulse 84 84 84 84 Resp 18 B/P (MAP) 160/85 (110) 160/85 160/85 160/85 Pulse Ox 98 O2 Delivery Nasal Cannula O2 Flow Rate 2.5 02/29/20 02/29/20 02/29/20 02/29/20 15:00 16:56 19:00 19:34 Temp 98.0 97.9 98.0 97.9 Pulse 78 78 77 Resp 18 18 B/P (MAP) 130/81 (97) 130/81 168/89 (115) Pulse Ox 95 94 O2 Delivery Nasal Cannula Nasal Cannula O2 Flow Rate 4.0 4.0 02/29/20 02/29/20 02/29/20 03/01/20 20:59 21:00 23:00 00:21 Temp 97.2 97.2 Pulse 77 78 82 78 Resp 18 B/P (MAP) 168/89 168/89 155/89 (111) 168/89 Pulse Ox 97 03/01/20 03/01/20 03:00 05:49 Temp 97.2 97.2 Pulse 82 82 Resp 18 B/P (MAP) 155/89 (111) 155/89 Pulse Ox 97 Intake and Output 02/29/20 02/29/20 03/01/20 15:00 23:00 07:00 Output Total 1700 ml Balance -[address] head - BRAIN PARENCHYMA: There is low density in the right cerebellum with mass effect with relative preservation of the gaston-white differentiation. Scattered white matter low density compatible with chronic ischemic microvascular change and a tiny lucency in the left basal ganglia compatible with lacunar infarct are noted. There is generalized parenchymal volume loss present. VENTRICLES & EXTRA-AXIAL SPACES: There is effacement of the fourth ventricle Basilar cisterns are patent. No pathologic extra-axial fluid collection or mass. ORBITS: Orbital contents are unremarkable. SINUSES: The left sphenoid sinus is opacified. There is mild mucosal thickening in the posterior right ethmoid air cells. OSSEOUS & SOFT TISSUES: Calvarium and skull base are intact. IMPRESSION: Superimposed on chronic ischemic microvascular changes is mass effect in the right cerebellum of concern for an underlying mass effacing the fourth ventricle. Consider MRI of the brain if further evaluation. Nutrition Consultation Dietary Evaluation: Recommendations by RD: Dietary education by RD, Increase Calorie Intake, Protein supplementation Comments: REC continue ADA/cardiac diet with glucerna bid Expected Outcomes/Goals: to meet >75% est nutrition and fluid needs- goal ongoing Malnutrition Findings: Food and Nutrition Intake (Mod: <75% est energy req 7days Weight Status: Morbidly Obese Fluid Accumulation (Non-Severe: Mild depletion SHARRON GRUBBS MD March 01, 2020 08:12
[2020-03-01] MEDS: FLUTICASONE 50MCG/NASAL SPRAY 16GM BOTTLE. NS SCH (09:00)
[2020-03-01] MEDS: AMOXICILLIN/K CLAV 875/125MG TABLET. PO SCH ×2 (09:14→20:32)
[2020-03-01] MEDS: ASPIRIN ENTERIC COATED 81 MG TABLET.DR. PO SCH (09:14)
[2020-03-01] MEDS: buPROPion SR 150 MG TABLET.SA PO SCH (09:14)
[2020-03-01] MEDS: METOPROLOL TART IMMED RELEASE 50 MG TABLET. PO SCH ×2 (09:15→20:32)
[2020-03-01] MEDS: amLODIPine BESYLATE 10 MG TABLET PO SCH (09:15)
[2020-03-01] MEDS: LISINOPRIL 20 MG TABLET PO SCH (09:15)
[2020-03-01] MEDS: CETIRIZINE HCL 10 MG TABLET. PO SCH (09:16)
[2020-03-01] MEDS: LACTOBACILLUS RHAMNOSUS GG 1 CAPSULE. PO SCH ×2 (09:16→20:32)
[2020-03-01] MEDS: FUROSEMIDE 40 MG TABLET. PO SCH (09:16)
[2020-03-01] MEDS: ZINC SULFATE 220 MG CAPSULE. PO SCH (09:16)
[2020-03-01] MEDS: INSULIN LISPRO 300 UNITS/3 ML VIAL. SQ SCH ×3 (09:17→17:00)
--- NOTE | 2020-03-01 09:57 | PDOC ---
PROGRESS NOTES Subjective Subjective c/o dizziness and nausea Objective Objective Vital Signs Date Time Temp Pulse Resp B/P (MAP) Pulse Ox O2 Delivery O2 Flow Rate FiO2 03/01/20 09:15 97 195/125 03/01/20 08:00 Nasal Cannula 2.5 03/01/20 07:00 97.2 16 98 97.2 Intake and Output 03/01/20 07:00 Output Total 1700 ml Balance -1700 ml Output Urine Total 1700 ml Physical Exam MUSCULOSKELETAL: Osteoarthritic changes both hands Assessment Assessment 1. Dizziness, nausea/vomiting: Continue supportive care per IM 2. Hypertensive urgency; blood pressure continues to be elevated despite increasing lisinopril dose yesterday. Increase hydralazine dose to 100 mg 3 times daily. 3. Acute on chronic diastolic CHF; Recent echo with preserved LV systolic function, better compensated 4. PAFIB vs chronic: AFIB rate controlled without any further episodes of bradycardia. Continue Coumadin for stroke prophylaxis. Will consider outpatient cardioversion. 5. Hyperlipidemia; statin therapy 6. Diabetes, II: Treat per IM 7. Recent COVID + with associated COPD; unknown date Plan Plan of Care Problems Medical Problems: (1) COVID-19 Status: Acute (2) Hypertensive urgency Status: Acute (3) Pneumonia Status: Acute (4) Vertigo Status: Acute Comment Review of Relevant I have reviewed the following items raman (where applicable) has been applied. Labs Laboratory Tests Test 02/29/20 11:41 02/29/20 17:04 02/29/20 20:42 03/01/20 06:10 Glucose (Fingerstick) 187 mg/dL (70-99) 174 mg/dL (70-99) 173 mg/dL (70-99) Prothrombin Time 21.6 SEC (11.7-14.0) Prothromb Time International Ratio 1.9 (0.8-1.1) Test 03/01/20 07:40 Glucose (Fingerstick) 141 mg/dL (70-99) Microbiology 02/23/20 Blood Culture - Final, Complete NO GROWTH AFTER 5 DAYS Medications Current Medications Ergocalciferol (Vitamin D2) 50,000 unit QSA PO Last administered on 02/29/20at 16:54; Start 02/29/20 at 16:00 Lisinopril (Prinivil) 20 mg 1X ONCE PO Last administered on 02/29/20at 14:42; Start 02/29/20 at 12:30; Stop 02/29/20 at 12:31; Status DC Lisinopril (Prinivil) 40 mg DAILY PO Last administered on 03/01/20at 09:15; Start 03/01/20 at 09:00 Warfarin Sodium (Coumadin) 9 mg 1X WARF ONCE PO Last administered on 02/29/20at 16:55; Start 02/29/20 at 16:00; Stop 02/29/20 at 16:01; Status DC Vitals/I & O Vital Sign - Last 24 Hours 02/29/20 02/29/20 02/29/20 02/29/20 11:00 14:42 14:42 14:42 Pulse 84 84 84 84 Resp 18 B/P (MAP) 160/85 (110) 160/85 160/85 160/85 Pulse Ox 98 O2 Delivery Nasal Cannula O2 Flow Rate 2.5 02/29/20 02/29/20 02/29/20 02/29/20 15:00 16:56 19:00 19:34 Temp 98.0 97.9 98.0 97.9 Pulse 78 78 77 Resp 18 18 B/P (MAP) 130/81 (97) 130/81 168/89 (115) Pulse Ox 95 94 O2 Delivery Nasal Cannula Nasal Cannula O2 Flow Rate 4.0 4.0 02/29/20 02/29/20 02/29/20 03/01/20 20:59 21:00 23:00 00:21 Temp 97.2 97.2 Pulse 77 78 82 78 Resp 18 B/P (MAP) 168/89 168/89 155/89 (111) 168/89 Pulse Ox 97 03/01/20 03/01/20 03/01/20 03/01/20 03:00 05:49 07:00 08:00 Temp 97.2 97.2 97.2 97.2 Pulse 82 82 97 Resp 18 16 B/P (MAP) 155/89 (111) 155/89 195/125 (148) Pulse Ox 97 98 O2 Delivery Nasal Cannula O2 Flow Rate 2.5 03/01/20 03/01/20 03/01/20 03/01/20 09:14 09:15 09:15 09:15 Pulse 97 97 97 97 B/P (MAP) 195/125 195/125 195/125 195/125 Intake and Output 02/29/20 02/29/20 03/01/20 15:00 23:00 07:00 Output Total 1700 ml Balance -1700 ml DOROTHEA MA MD March 01, 2020 09:57
--- NOTE | 2020-03-01 12:32 | NUR ---
Pharmacy Warfarin Dosing Note S:Pharmacy consulted to assist with anticoagulation therapy started with target INR: 2 -3 O:MICHAELA COOPER is a 74 year old F with Atrial Fibrillation LABS: Last INR: 13.9 Last HGB: 10.1 Last HCT: 32.5 Last PLT: 289 Last dose of 9MG given on 02/29/20 at 1509 Previous Regimen: Vitamin K given: N Drug Interaction Changes: Ongoing Drug Interactions: ASA A:INR of 1.9 is below the desired range. Target range for this patient is: 2 -3 P: Warfarin dose: 9 mg Today at 1600 Bridge Therapy: Enoxaparin 80 mg q12h Next INR due TOMORROW. Pharmacy anticoagulation service will continue to follow. BRYAN ALICIA [facility], 03/01/20 2527
[2020-03-01] MEDS ORDERED: WARFARIN 3 MG TABLET. PO ONE (16:00)
--- NOTE | 2020-03-01 20:02 | PDOC ---
PROGRESS NOTES Assessment Problems Medical Problems: (1) COVID-19 Status: Acute (2) Hypertensive urgency Status: Acute (3) Pneumonia Status: Acute (4) Vertigo Status: Acute Plan This patient is 74-year-old woman with past medical history of multiple medical problems history of hypertension hyperlipidemia A fib on chronic anticoagulation cardiomyopathy congestive heart failure chronic obstructive pulmonary disease diabetes patient presented with complaint of for the last over 4 days. Patient has been tested for core and 19 positive. Patient is also having symptoms of dizziness. Patient denies any complaint of chest pain patient is being treated for pneumonia on antibiotics. CT scan brain Noted MRI of brain cannot be done as not available in facility currently. Will reevaluate. Neuro exam stable.. Further workup depending on initial test results. Cough, chronic obstructive pulmonary disease, with positive, on antibiotics, ID recommendations appreciated. Hypertension continue treat and monitor hyperlipidemia on statin. A fib on chronic anticoagulation chronic obstructive pulmonary disease, depression, diabetes continue PT OT speech evaluation. medical management Subjective No acute event. Patient resting in bed. Objective Vital Signs Date Time Temp Pulse Resp B/P (MAP) Pulse Ox O2 Delivery O2 Flow Rate FiO2 03/01/20 17:59 69 134/77 03/01/20 15:00 97.6 20 95 Nasal Cannula 2.5 97.6 Intake and Output 03/01/20 07:00 Output Total 1700 ml Balance -1700 ml Output Urine Total 1700 ml PHYSICAL EXAM exam done over [facility] no acute distress. HEENT: Normocephalic and atraumatic. NEUROLOGIC: Mental status Alert able to tell her name intact extraocular movements. No facial asymmetry. tongue protrudes in midline. Coordination + dysmetria Strength able to move all exts Gait in bed. Review of Relevant I have reviewed the following items raman (where applicable) has been applied. Labs Laboratory Tests Test 02/28/20 22:44 02/29/20 04:00 02/29/20 07:28 02/29/20 11:41 Glucose (Fingerstick) 138 mg/dL (70-99) 135 mg/dL (70-99) 187 mg/dL (70-99) Prothrombin Time 19.3 SEC (11.7-14.0) Prothromb Time International Ratio 1.7 (0.8-1.1) Test 02/29/20 17:04 02/29/20 20:42 03/01/20 06:10 03/01/20 07:40 Glucose (Fingerstick) 174 mg/dL (70-99) 173 mg/dL (70-99) 141 mg/dL (70-99) Prothrombin Time 21.6 SEC (11.7-14.0) Prothromb Time International Ratio 1.9 (0.8-1.1) Test 03/01/20 11:50 03/01/20 16:58 Glucose (Fingerstick) 192 mg/dL (70-99) 137 mg/dL (70-99) Laboratory Tests Test 02/29/20 20:42 03/01/20 06:10 03/01/20 07:40 03/01/20 11:50 Glucose (Fingerstick) 173 mg/dL (70-99) 141 mg/dL (70-99) 192 mg/dL (70-99) Prothrombin Time 21.6 SEC (11.7-14.0) Prothromb Time International Ratio 1.9 (0.8-1.1) Test 03/01/20 16:58 Glucose (Fingerstick) 137 mg/dL (70-99) Microbiology 02/23/20 Blood Culture - Final, Complete NO GROWTH AFTER 5 DAYS Medications Current Medications Ondansetron HCl (Zofran) 4 mg 1X ONCE IVP Last administered on 02/23/20at 19:43; Start 02/23/20 at 19:45; Stop 02/23/20 at 19:46; Status DC Meclizine HCl (Antivert) 25 mg 1X ONCE PO Last administered on 02/23/20at 19:44; Start 02/23/20 at 19:45; Stop 02/23/20 at 19:46; Status DC Sodium Chloride 1,000 ml @ 1,000 mls/hr Q1H IV Last administered on 02/23/20at 20:14; Start 02/23/20 at 19:28; Stop 02/23/20 at 20:27; Status DC Lorazepam (Ativan Inj) 1 mg 1X ONCE IVP Last administered on 02/23/20at 19:44; Start 02/23/20 at 19:45; Stop 02/23/20 at 19:46; Status DC Hydralazine HCl (Apresoline Inj) 10 mg 1X ONCE IVP Last administered on 02/23/20at 20:14; Start 02/23/20 at 20:00; Stop 02/23/20 at 20:03; Status DC Scopolamine (Transderm-Scop) 1 patch 1X ONCE TD Last administered on 02/23/20at 22:21; Start 02/23/20 at 22:30; Stop 02/23/20 at 22:31; Status DC Ceftriaxone Sodium (Rocephin) 1 gm 1X ONCE IVP Last administered on 02/23/20at 22:27; Start 02/23/20 at 22:30; Stop 02/23/20 at 22:31; Status DC Azithromycin (Zithromax) 500 mg 1X ONCE PO Last administered on 02/23/20at 22: 26; Start 02/23/20 at 22:30; Stop 02/23/20 at 22:31; Status DC Hydralazine HCl (Apresoline Inj) 10 mg 1X ONCE IVP Last administered on 02/23/20at 23:12; Start 02/23/20 at 23:30; Stop 02/23/20 at 23:31; Status DC Ondansetron HCl (Zofran) 4 mg PRN Q8HRS PRN IV NAUSEA/VOMITING 1ST CHOICE; Start 02/23/20 at 23:00; Stop 02/24/20 at 22:59; Status DC Acetaminophen (Tylenol) 650 mg PRN Q4HRS PRN PO FEVER > 100.3'F; Start 02/23/20 at 23:00; Stop 02/24/20 at 12:22; Status DC Albuterol/ Ipratropium (Duoneb) 3 ml RTQID NEB ; Start 02/24/20 at 08:00; Stop 02/24/20 at 09:21; Status DC Albuterol/ Ipratropium (Duoneb) 3 ml 1X ONCE NEB ; Start 02/23/20 at 23:45; Stop 02/23/20 at 23:46; Status DC Clonidine HCl (Catapres) 0.2 mg 1X ONCE PO Last administered on 02/24/20at 00:47; Start 02/24/20 at 01:00; Stop 02/24/20 at 01:01; Status DC Albuterol/ Ipratropium (Duoneb) 3 ml PRN Q4HRS PRN NEB SHORTNESS OF BREATH; Start 02/24/20 at 09:30; Stop 02/25/20 at 09:29; Status DC Hydralazine HCl (Apresoline Inj) 10 mg PRN Q4HRS PRN IVP ELEVATED BP, SEE COMMENTS; Start 02/24/20 at 09:45; Stop 02/27/20 at 03:42; Status DC Piperacillin Sod/ Tazobactam Sod 3.375 gm/Sodium Chloride 50 ml @ 100 mls/hr Q6HRS IV Last administered on 02/26/20at 05:53; Start 02/24/20 at 12:00; Stop 02/26/20 at 10:11; Status DC Linezolid/Dextrose 300 ml @ 300 mls/hr Q12HR IV Last administered on 02/26/20at 08:55; Start 02/24/20 at 11:00; Stop 02/26/20 at 10:11; Status DC Acetaminophen (Tylenol) 650 mg PRN Q6HRS PRN PO HEADACHE/TEMP Last administered on 02/26/20at 21:38; Start 02/24/20 at 12:15 Aspirin (Ecotrin) 81 mg DAILY PO Last administered on 03/01/20at 09:14; Start 02/25/20 at 09:00 Atorvastatin Calcium (Lipitor) 20 mg QHS PO Last administered on 02/29/20at 21:01; Start 02/24/20 at 21:00 Bupropion HCl (Wellbutrin Sr) 150 mg DAILY PO Last administered on 03/01/20at 09:14; Start 02/25/20 at 09:00 Digoxin (Lanoxin) 125 mcg DAILY PO ; Start 02/25/20 at 09:00; Stop 02/24/20 at 16:58; Status DC Diltiazem HCl (Cardizem 24hr Cd) 300 mg DAILY PO ; Start 02/25/20 at 09:00; Stop 02/24/20 at 16:58; Status DC Ergocalciferol (Vitamin D2) 50,000 unit QSA PO Last administered on 02/29/20at 16:54; Start 02/29/20 at 16:00 Fluticasone Propionate (Flonase) 2 spray DAILY NS Last administered on 03/01/20at 09:00; Start 02/25/20 at 09:00 Furosemide (Lasix) 40 mg DAILY PO Last administered on 03/01/20at 09:16; Start 02/25/20 at 09:00 Hydralazine HCl (Apresoline) 25 mg TID PO Last administered on 02/26/20at 08:56; Start 02/24/20 at 14:00; Stop 02/26/20 at 11:53; Status DC Lisinopril (Prinivil) 10 mg DAILY PO ; Start 02/25/20 at 09:00; Stop 02/24/20 at 16:58; Status DC Metoprolol Tartrate (Lopressor) 75 mg BID PO Last administered on 02/26/20at 08:56; Start 02/24/20 at 21:00; Stop 02/26/20 at 16:25; Status DC Warfarin Sodium (Coumadin) 0.5 mg DAILY PO ; Start 02/25/20 at 09:00; Stop 02/24/20 at 13:04; Status DC Warfarin Sodium (Coumadin) 6 mg DAILY16 PO ; Start 02/24/20 at 16:00; Status UNV Insulin Human Lispro (HumaLOG) 15 units TIDWMEALS SQ Last administered on 03/01at 13:18; Start 02/24/20 at 17:00 Loperamide HCl (Imodium) 2 mg PRN Q15MIN PRN PO DIARRHEA; Start 02/24/20 at 12:45 Cetirizine HCl (ZyrTEC) 10 mg DAILY PO Last administered on 03/01/20at 09:16; Start 02/25/20 at 09:00 Warfarin Sodium (Coumadin Per Pharmacy) 1 each PRN DAILY PRN MC SEE COMMENTS Last administered on 03/01/20at 12:34; Start 02/24/20 at 12:45 Warfarin Sodium (Coumadin) 4 mg 1X WARF ONCE PO Last administered on 02/24/20at 17:27; Start 02/24/20 at 16:00; Stop 02/24/20 at 16:01; Status DC Furosemide (Lasix) 40 mg 1X ONCE IVP Last administered on 02/24/20at 17:25; Start 02/24/20 at 17:00; Stop 02/24/20 at 17:01; Status DC Digoxin (Lanoxin) 125 mcg DAILY PO Last administered on 02/26/20at 08:57; Start 02/24/20 at 17:00; Stop 02/26/20 at 16:25; Status DC Diltiazem HCl (Cardizem 24hr Cd) 300 mg DAILY PO Last administered on 02/26/20at 08:57; Start 02/24/20 at 17:00; Stop 02/26/20 at 16:25; Status DC Lisinopril (Prinivil) 10 mg DAILY PO Last administered on 02/27/20at 09:02; Start 02/24/20 at 17:00; Stop 02/28/20 at 08:56; Status DC Ondansetron HCl (Zofran) 4 mg PRN Q6HRS PRN IVP NAUSEA/VOMITING Last administered on 02/25/20at 11:41; Start 02/25/20 at 11:30; Stop 02/27/20 at 03:42; Status DC Warfarin Sodium (Coumadin) 6 mg 1X WARF ONCE PO Last administered on 02/25/20at 17:21; Start 02/25/20 at 16:00; Stop 02/25/20 at 16:01; Status DC Lactobacillus Rhamnosus (Culturelle) 1 cap BID PO Last administered on 03/01/20at 09:16; Start 02/25/20 at 21:00 Amoxicillin/ Clavulanate Potassium (Augmentin 875/ 125mg) 1 tab BID PO Last administered on 03/01/20at 09:14; Start 02/26/20 at 21:00; Stop 03/01/20 at 21:59 Hydralazine HCl (Apresoline) 50 mg TID PO Last administered on 02/26/20at 13:34; Start 02/26/20 at 14:00; Stop 02/26/20 at 16:25; Status DC Zinc Sulfate (Orazinc) 220 mg DAILY PO Last administered on 03/01/20at 09:16; Start 02/27/20 at 09:00 Latanoprost (Xalatan) 1 drop QHS OU Last administered on 02/29/20at 21:00; Start 02/26/20 at 12:45 Diltiazem HCl (Cardizem 24hr Cd) 300 mg DAILYWLUN PO ; Start 02/27/20 at 12:00; Stop 02/28/20 at 08:56; Status DC Hydralazine HCl (Apresoline) 75 mg TID PO Last administered on 03/01/20at 09:14; Start 02/26/20 at 21:00; Stop 03/01/20 at 10:22; Status DC Metoprolol Tartrate (Lopressor) 50 mg BID PO Last administered on 03/01/20at 09:15; Start 02/27/20 at 21:00 Amlodipine Besylate (Norvasc) 10 mg DAILY ONCE PO ; Start 02/28/20 at 09:00; Stop 02/27/20 at 11:57; Status DC Nitroglycerin (Nitro-Bid Oint) 1 inch Q6HRS TP Last administered on 03/01/20at 17:59; Start 02/27/20 at 12:00 Amlodipine Besylate (Norvasc) 10 mg 1X ONCE PO Last administered on 02/27/20at 12:28; Start 02/27/20 at 12:00; Stop 02/27/20 at 12:01; Status DC Ondansetron HCl (Zofran Odt) 4 mg PRN Q6HRS PRN PO NAUSEA/VOMITING Last administered on 02/27/20at 15:08; Start 02/27/20 at 13:15 Prochlorperazine Edisylate (Compazine) 10 mg PRN Q6HRS PRN IM NAUSEA/VOMITING Last administered on 02/29/20at 18:55; Start 02/27/20 at 13:15 Metoprolol Tartrate (Lopressor) 50 mg 1X ONCE PO ; Start 02/27/20 at 14:00; Stop 02/27/20 at 14:01; Status DC Amlodipine Besylate (Norvasc) 10 mg DAILY PO Last administered on 03/01/20at 09:15; Start 02/28/20 at 09:00 Warfarin Sodium (Coumadin) 6 mg 1X WARF ONCE PO Last administered on 02/27/20at 15:09; Start 02/27/20 at 16:00; Stop 02/27/20 at 16:01; Status DC Lisinopril (Prinivil) 20 mg DAILY PO Last administered on 02/29/20at 08:30; Start 02/28/20 at 09:00; Stop 02/29/20 at 11:28; Status DC Enoxaparin Sodium (Lovenox 80mg Syringe) 80 mg Q12HR SQ Last administered on 03/01/20at 09:14; Start 02/28/20 at 12:15 Warfarin Sodium (Coumadin) 9 mg 1X WARF ONCE PO Last administered on 02/28/20at 17:16; Start 02/28/20 at 16:00; Stop 02/28/20 at 16:01; Status DC Warfarin Sodium (Coumadin) 9 mg 1X WARF ONCE PO Last administered on 02/29/20at 16:55; Start 02/29/20 at 16:00; Stop 02/29/20 at 16:01; Status DC Lisinopril (Prinivil) 40 mg DAILY PO Last administered on 03/01/20at 09:15; Start 03/01/20 at 09:00 Lisinopril (Prinivil) 20 mg 1X ONCE PO Last administered on 02/29/20at 14:42; Start 02/29/20 at 12:30; Stop 02/29/20 at 12:31; Status DC Hydralazine HCl (Apresoline) 100 mg TID PO Last administered on 03/01/20at 14:31; Start 03/01/20 at 14:00 Warfarin Sodium (Coumadin) 9 mg 1X WARF ONCE PO Last administered on 03/01/20at 17:59; Start 03/01/20 at 16:00; Stop 03/01/20 at 16:01; Status DC Active Scripts Active Atorvastatin Calcium 20 Mg Tablet 20 Mg PO QHS 30 Days Lisinopril 10 Mg Tablet 10 Mg PO DAILY 30 Days Tylenol (Acetaminophen) 325 Mg Tablet 650 Mg PO PRN Q6HRS PRN 30 Days Coumadin (Warfarin Sodium) 3 Mg Tablet 6 Mg PO DAILY16 30 Days Diltiazem 24HR Cd (Diltiazem Hcl) 300 Mg Cap.er.24h 300 Mg PO DAILY 30 Days Lanoxin (Digoxin) 125 Mcg Tablet 125 Mcg PO DAILY 30 Days [Albuterol Sulfate] 2.5 MG/3 ML Nebu 2.5 Mg NEB PRN Q4HRS PRN Reported Ventolin Hfa Inhaler (Albuterol Sulfate) 18 Gm Hfa.aer.ad 2 Puff INH Q4HRS Combivent Respimat Inhal (Ipratropium/Albuterol Sulfate) 4 Gm Aer.w.adap 2 Inh IH QID Loratadine 10 Mg Tablet 10 Mg PO DAILY Loperamide (Loperamide Hcl) 2 Mg Tablet 2 Mg PO PRN Q4HRS PRN Furosemide 40 Mg Tablet 40 Mg PO DAILY Metoprolol Tartrate 50 Mg Tablet 75 Mg PO BID Warfarin Sodium 1 Mg Tablet 0.5 Mg PO DAILY Hydralazine Hcl 25 Mg Tablet 1 Tab PO TID Wellbutrin Sr (Bupropion Hcl) 150 Mg Tablet.er 150 Mg PO DAILY Novolog (Insulin Aspart) 100 Unit/1 Ml Cartridge 15 Unit SQ TID Aspirin Ec (Aspirin) 81 Mg Tablet.dr 1 Tab PO DAILY Fluticasone Propionate Nasal [place] (Fluticasone Propionate) 16 Gm [place].susp 2 [place] NS DAILY LAST DOSE GIVEN: DATE: 10-13-15 TIME: 9 am NEXT DOSE DUE: DATE: 10-14-15 TIME: 9 am Vitamin D2 (Ergocalciferol (Vitamin D2)) 50,000 Unit Capsule 1 Cap PO QSA Vitals/I & O Vital Sign - Last 24 Hours 02/29/20 02/29/20 02/29/20 03/01/20 20:59 21:00 23:00 00:21 Temp 97.2 97.2 Pulse 77 78 82 78 Resp 18 B/P (MAP) 168/89 168/89 155/89 (111) 168/89 Pulse Ox 97 03/01/20 03/01/20 03/01/20 03/01/20 03:00 05:49 07:00 08:00 Temp 97.2 97.2 97.2 97.2 Pulse 82 82 97 Resp 18 16 B/P (MAP) 155/89 (111) 155/89 195/125 (148) Pulse Ox 97 98 O2 Delivery Nasal Cannula O2 Flow Rate 2.5 03/01/20 03/01/20 03/01/20 03/01/20 09:14 09:15 09:15 09:15 Pulse 97 97 97 97 B/P (MAP) 195/125 195/125 195/125 195/125 03/01/20 03/01/20 03/01/20 03/01/20 11:20 12:41 13:19 14:31 Temp 97.2 97.2 Pulse 95 95 95 Resp 18 B/P (MAP) 195/156 (169) 150/94 (112) 150/94 150/94 Pulse Ox 97 O2 Delivery Nasal Cannula O2 Flow Rate 2.5 03/01/20 03/01/20 15:00 17:59 Temp 97.6 97.6 Pulse 69 69 Resp 20 B/P (MAP) 134/77 (96) 134/77 Pulse Ox 95 O2 Delivery Nasal Cannula O2 Flow Rate 2.5 Intake and Output 02/29/20 02/29/20 03/01/20 15:00 23:00 07:00 Output Total 1700 ml Balance -1700 ml RIC KING MD March 01, 2020 20:02
[2020-03-01] MEDS: ATORVASTATIN CALCIUM 20 MG TABLET PO SCH (20:34)
[2020-03-01] MEDS: LATANOPROST 0.005% OPHTH SOLUTION 2.5ML BOTTLE. OU SCH (20:34)
--- NOTE | 2020-03-01 22:54 | RAD ---
Clinical Indications: Right eye vision loss. Exam : Carotid Duplex with Grayscale Ultrasound and Spectral and Color Doppler Analysis: RS Compliance Statement - Stenosis calculations for CT, MR and conventional angiography are based upon measurement of the distal ICA diameter in accordance with the NASCET methodology. Stenosis calculations for carotid ultrasound studies are derived from validated velocity criteria which are known to correlate with the NASCET methodology. Comparison study: None available. Findings: The common, internal and external carotid arteries were examined by grayscale, color and spectral Doppler ultrasound. Bilateral atherosclerotic calcifications identified in the bilateral carotid bulbs and the proximal internal carotid arteries Flow in both vertebral arteries was antegrade and normal. The following are the velocities and ratios in the carotid arteries on both sides: RIGHT ICA PV: 74cm/sec RIGHT CCA PV: 70cm/sec RIGHT ICA ED: 25cm/sec RIGHT IC/CCPV: 1.1 RIGHT VERTEBRAL: antegrade flow RIGHT % STENOSIS: Less than 50 percent LEFT ICA PV: 85cm/sec LEFT CCA PV: 75cm/sec LEFT ICA ED: 28cm/sec LEFT IC/CCPV: 1.1 LEFT VERTEBRAL: antegrade flow LEFT % STENOSIS: 50 percent <50% ICA Stenosis: PSV < 125cm/s (EDV < 40cm/s; SVR < 2.0) 50-69% ICA Stenosis: PSV < 125-229cm/s (EDV 40-99cm/s; SVR 2.0-3.9) >70% ICA Stenosis: PSV > 230cm/s (EDV >100cm/s; SVR >4.0) Impression: 1. No evidence of hemodynamically significant stenosis. 2. Bilateral atherosclerotic calcifications identified in the bilateral carotid bulbs and the proximal internal carotid arteries. Electronically signed by: Moises Walsh MD (03/01/2020 10:51 PM) [id number]
[2020-03-02] MEDS: NITROGLYCERIN OINT 1 GM PACKET. TP SCH ×4 (00:15→18:00)
[2020-03-02 03:00] VITALS: BP 162/82
[2020-03-02 05:35] LABS: PROTHROMBIN TIME PATIENT 25.7 SEC (11.7-14.0)
[2020-03-02 07:00] VITALS: BP 160/84
[2020-03-02] MEDS: buPROPion SR 150 MG TABLET.SA PO SCH (09:08)
[2020-03-02] MEDS: ASPIRIN ENTERIC COATED 81 MG TABLET.DR. PO SCH (09:09)
[2020-03-02] MEDS: ZINC SULFATE 220 MG CAPSULE. PO SCH (09:09)
[2020-03-02] MEDS: LISINOPRIL 20 MG TABLET PO SCH (09:09)
[2020-03-02] MEDS: CETIRIZINE HCL 10 MG TABLET. PO SCH (09:09)
[2020-03-02] MEDS: LACTOBACILLUS RHAMNOSUS GG 1 CAPSULE. PO SCH ×2 (09:10→21:00)
[2020-03-02] MEDS: amLODIPine BESYLATE 10 MG TABLET PO SCH (09:11)
[2020-03-02] MEDS: METOPROLOL TART IMMED RELEASE 50 MG TABLET. PO SCH ×2 (09:11→21:00)
[2020-03-02] MEDS: FUROSEMIDE 40 MG TABLET. PO SCH (09:11)
[2020-03-02] MEDS: INSULIN LISPRO 300 UNITS/3 ML VIAL. SQ SCH ×3 (09:13→17:14)
[2020-03-02] MEDS: FLUTICASONE 50MCG/NASAL SPRAY 16GM BOTTLE. NS SCH (09:48)
--- NOTE | 2020-03-02 10:02 | PDOC ---
PROGRESS NOTES Assessment Problems Medical Problems: (1) COVID-19 Status: Acute (2) Hypertensive urgency Status: Acute (3) Pneumonia Status: Acute (4) Vertigo Status: Acute Nonspecific dizziness, No evidence of central or peripheral vestibular disease Right eye vision loss, returning to base line she says COVID + Hypertension, hyperlipidemia, A fib on chronic anticoagulation, cardiomyopathy, congestive heart failure, chronic obstructive pulmonary disease, diabetes Plan Hold on MRI given improvement, risks outweigh benefits in this COVID positive patient Ophthalmology evaluation as outpatient Check sedimentation rate, may be elevated due to COVID, I doubt she has temporal arteritis Rehabilitation modalities No neurology rounds or coverage from 5 PM today through 8 AM on 03/06 Subjective Feels better, not dizzy Objective Vital Signs Date Time Temp Pulse Resp B/P (MAP) Pulse Ox O2 Delivery O2 Flow Rate FiO2 03/02/20 09:11 82 160/84 03/02/20 07:00 98.2 19 98 Nasal Cannula 2.0 98.2 Intake and Output 03/02/20 07:00 Intake Total 450 ml Output Total 900 ml Balance -450 ml Intake Oral 450 ml Output Urine Total 900 ml # Voids 1 PHYSICAL EXAM Alert. Oriented to time, place and person. PERRL. EOMI. No nystagmus Squints right eye CN: no focal findings. Muscle tone: normal. Muscle strength: 4/5 DTR: 1+ Plantar reflex: flexor Gait: not examined in bed. Sensory exam: no abnormal findings. No cerebellar signs elicited. Review of Relevant I have reviewed the following items raman (where applicable) has been applied. Labs Laboratory Tests Test 02/29/20 11:41 02/29/20 17:04 02/29/20 20:42 03/01/20 06:10 Glucose (Fingerstick) 187 mg/dL (70-99) 174 mg/dL (70-99) 173 mg/dL (70-99) Prothrombin Time 21.6 SEC (11.7-14.0) Prothromb Time International Ratio 1.9 (0.8-1.1) Test 03/01/20 07:40 03/01/20 11:50 03/01/20 16:58 03/01/20 20:36 Glucose (Fingerstick) 141 mg/dL (70-99) 192 mg/dL (70-99) 137 mg/dL (70-99) 185 mg/dL (70-99) Test 03/02/20 04:10 03/02/20 07:23 Prothrombin Time 25.7 SEC (11.7-14.0) Prothromb Time International Ratio 2.4 (0.8-1.1) Glucose (Fingerstick) 147 mg/dL (70-99) Laboratory Tests Test 03/01/20 11:50 03/01/20 16:58 03/01/20 20:36 03/02/20 04:10 Glucose (Fingerstick) 192 mg/dL (70-99) 137 mg/dL (70-99) 185 mg/dL (70-99) Prothrombin Time 25.7 SEC (11.7-14.0) Prothromb Time International Ratio 2.4 (0.8-1.1) Test 03/02/20 07:23 Glucose (Fingerstick) 147 mg/dL (70-99) Microbiology 02/23/20 Blood Culture - Final, Complete NO GROWTH AFTER 5 DAYS Medications Current Medications Ondansetron HCl (Zofran) 4 mg 1X ONCE IVP Last administered on 02/23/20at 19:43; Start 02/23/20 at 19:45; Stop 02/23/20 at 19:46; Status DC Meclizine HCl (Antivert) 25 mg 1X ONCE PO Last administered on 02/23/20at 19:44; Start 02/23/20 at 19:45; Stop 02/23/20 at 19:46; Status DC Sodium Chloride 1,000 ml @ 1,000 mls/hr Q1H IV Last administered on 02/23/20at 20:14; Start 02/23/20 at 19:28; Stop 02/23/20 at 20:27; Status DC Lorazepam (Ativan Inj) 1 mg 1X ONCE IVP Last administered on 02/23/20at 19:44; Start 02/23/20 at 19:45; Stop 02/23/20 at 19:46; Status DC Hydralazine HCl (Apresoline Inj) 10 mg 1X ONCE IVP Last administered on 02/23/20at 20:14; Start 02/23/20 at 20:00; Stop 02/23/20 at 20:03; Status DC Scopolamine (Transderm-Scop) 1 patch 1X ONCE TD Last administered on 02/23/20at 22:21; Start 02/23/20 at 22:30; Stop 02/23/20 at 22:31; Status DC Ceftriaxone Sodium (Rocephin) 1 gm 1X ONCE IVP Last administered on 02/23/20at 22:27; Start 02/23/20 at 22:30; Stop 02/23/20 at 22:31; Status DC Azithromycin (Zithromax) 500 mg 1X ONCE PO Last administered on 02/23/20at 22:26; Start 02/23/20 at 22:30; Stop 02/23/20 at 22:31; Status DC Hydralazine HCl (Apresoline Inj) 10 mg 1X ONCE IVP Last administered on 02/23/20at 23:12; Start 02/23/20 at 23:30; Stop 02/23/20 at 23:31; Status DC Ondansetron HCl (Zofran) 4 mg PRN Q8HRS PRN IV NAUSEA/VOMITING 1ST CHOICE; Start 02/23/20 at 23:00; Stop 02/24/20 at 22:59; Status DC Acetaminophen (Tylenol) 650 mg PRN Q4HRS PRN PO FEVER > 100.3'F; Start 02/23/20 at 23:00; Stop 02/24/20 at 12:22; Status DC Albuterol/ Ipratropium (Duoneb) 3 ml RTQID NEB ; Start 02/24/20 at 08:00; Stop 02/24/20 at 09:21; Status DC Albuterol/ Ipratropium (Duoneb) 3 ml 1X ONCE NEB ; Start 02/23/20 at 23:45; Stop 02/23/20 at 23:46; Status DC Clonidine HCl (Catapres) 0.2 mg 1X ONCE PO Last administered on 02/24/20at 00:47; Start 02/24/20 at 01:00; Stop 02/24/20 at 01:01; Status DC Albuterol/ Ipratropium (Duoneb) 3 ml PRN Q4HRS PRN NEB SHORTNESS OF BREATH; Start 02/24/20 at 09:30; Stop 02/25/20 at 09:29; Status DC Hydralazine HCl (Apresoline Inj) 10 mg PRN Q4HRS PRN IVP ELEVATED BP, SEE COMMENTS; Start 02/24/20 at 09:45; Stop 02/27/20 at 03:42; Status DC Piperacillin Sod/ Tazobactam Sod 3.375 gm/Sodium Chloride 50 ml @ 100 mls/hr Q6HRS IV Last administered on 02/26/20at 05:53; Start 02/24/20 at 12:00; Stop 02/26/20 at 10:11; Status DC Linezolid/Dextrose 300 ml @ 300 mls/hr Q12HR IV Last administered on 02/26/20at 08:55; Start 02/24/20 at 11:00; Stop 02/26/20 at 10:11; Status DC Acetaminophen (Tylenol) 650 mg PRN Q6HRS PRN PO HEADACHE/TEMP Last administered on 02/26/20at 21:38; Start 02/24/20 at 12:15 Aspirin (Ecotrin) 81 mg DAILY PO Last administered on 03/02/20at 09:09; Start 02/25/20 at 09:00 Atorvastatin Calcium (Lipitor) 20 mg QHS PO Last administered on 03/01/20at 20:34; Start 02/24/20 at 21:00 Bupropion HCl (Wellbutrin Sr) 150 mg DAILY PO Last administered on 03/02/20at 09:08; Start 02/25/20 at 09:00 Digoxin (Lanoxin) 125 mcg DAILY PO ; Start 02/25/20 at 09:00; Stop 02/24/20 at 16:58; Status DC Diltiazem HCl (Cardizem 24hr Cd) 300 mg DAILY PO ; Start 02/25/20 at 09:00; Sto p 02/24/20 at 16:58; Status DC Ergocalciferol (Vitamin D2) 50,000 unit QSA PO Last administered on 02/29/20at 16:54; Start 02/29/20 at 16:00 Fluticasone Propionate (Flonase) 2 spray DAILY NS Last administered on 03/02/20at 09:48; Start 02/25/20 at 09:00 Furosemide (Lasix) 40 mg DAILY PO Last administered on 03/02/20at 09:11; Start 02/25/20 at 09:00 Hydralazine HCl (Apresoline) 25 mg TID PO Last administered on 02/26/20at 08:56; Start 02/24/20 at 14:00; Stop 02/26/20 at 11:53; Status DC Lisinopril (Prinivil) 10 mg DAILY PO ; Start 02/25/20 at 09:00; Stop 02/24/20 at 16:58; Status DC Metoprolol Tartrate (Lopressor) 75 mg BID PO Last administered on 02/26/20at 08:56; Start 02/24/20 at 21:00; Stop 02/26/20 at 16:25; Status DC Warfarin Sodium (Coumadin) 0.5 mg DAILY PO ; Start 02/25/20 at 09:00; Stop 02/24/20 at 13:04; Status DC Warfarin Sodium (Coumadin) 6 mg DAILY16 PO ; Start 02/24/20 at 16:00; Status UNV Insulin Human Lispro (HumaLOG) 15 units TIDWMEALS SQ Last administered on 03/02/20at 09:13; Start 02/24/20 at 17:00 Loperamide HCl (Imodium) 2 mg PRN Q15MIN PRN PO DIARRHEA; Start 02/24/20 at 12:45 Cetirizine HCl (ZyrTEC) 10 mg DAILY PO Last administered on 03/02/20at 09:09; Start 02/25/20 at 09:00 Warfarin Sodium (Coumadin Per Pharmacy) 1 each PRN DAILY PRN MC SEE COMMENTS Last administered on 03/01/20at 12:34; Start 02/24/20 at 12:45 Warfarin Sodium (Coumadin) 4 mg 1X WARF ONCE PO Last administered on 02/24/20at 17:27; Start 02/24/20 at 16:00; Stop 02/24/20 at 16:01; Status DC Furosemide (Lasix) 40 mg 1X ONCE IVP Last administered on 02/24/20at 17:25; Start 02/24/20 at 17:00; Stop 02/24/20 at 17:01; Status DC Digoxin (Lanoxin) 125 mcg DAILY PO Last administered on 02/26/20at 08:57; Start 02/24/20 at 17:00; Stop 02/26/20 at 16:25; Status DC Diltiazem HCl (Cardizem 24hr Cd) 300 mg DAILY PO Last administered on 02/26/20at 08:57; Start 02/24/20 at 17:00; Stop 02/26/20 at 16:25; Status DC Lisinopril (Prinivil) 10 mg DAILY PO Last administered on 02/27/20at 09:02; Start 02/24/20 at 17:00; Stop 02/28/20 at 08:56; Status DC Ondansetron HCl (Zofran) 4 mg PRN Q6HRS PRN IVP NAUSEA/VOMITING Last administered on 02/25/20at 11:41; Start 02/25/20 at 11:30; Stop 02/27/20 at 03:42; Status DC Warfarin Sodium (Coumadin) 6 mg 1X WARF ONCE PO Last administered on 02/25/20at 17:21; Start 02/25/20 at 16:00; Stop 02/25/20 at 16:01; Status DC Lactobacillus Rhamnosus (Culturelle) 1 cap BID PO Last administered on 03/02/20at 09:10; Start 02/25/20 at 21:00 Amoxicillin/ Clavulanate Potassium (Augmentin 875/ 125mg) 1 tab BID PO Last administered on 03/01/20at 20:32; Start 02/26/20 at 21:00; Stop 03/01/20 at 21:59; Status DC Hydralazine HCl (Apresoline) 50 mg TID PO Last administered on 02/26/20at 13:34; Start 02/26/20 at 14:00; Stop 02/26/20 at 16:25; Status DC Zinc Sulfate (Orazinc) 220 mg DAILY PO Last administered on 03/02/20at 09:09; Start 02/27/20 at 09:00 Latanoprost (Xalatan) 1 drop QHS OU Last administered on 03/01/20at 20:34; Start 02/26/20 at 12:45 Diltiazem HCl (Cardizem 24hr Cd) 300 mg DAILYWLUN PO ; Start 02/27/20 at 12:00; Stop 02/28/20 at 08:56; Status DC Hydralazine HCl (Apresoline) 75 mg TID PO Last administered on 03/01/20at 09:14; Start 02/26/20 at 21:00; Stop 03/01/20 at 10:22; Status DC Metoprolol Tartrate (Lopressor) 50 mg BID PO Last administered on 03/02/20at 09:11; Start 02/27/20 at 21:00 Amlodipine Besylate (Norvasc) 10 mg DAILY ONCE PO ; Start 02/28/20 at 09:00; Stop 02/27/20 at 11:57; Status DC Nitroglycerin (Nitro-Bid Oint) 1 inch Q6HRS TP Last administered on 03/02/20at 05:32; Start 02/27/20 at 12:00 Amlodipine Besylate (Norvasc) 10 mg 1X ONCE PO Last administered on 02/27/20at 12:28; Start 02/27/20 at 12:00; Stop 02/27/20 at 12:01; Status DC Ondansetron HCl (Zofran Odt) 4 mg PRN Q6HRS PRN PO NAUSEA/VOMITING Last administered on 02/27/20at 15:08; Start 02/27/20 at 13:15 Prochlorperazine Edisylate (Compazine) 10 mg PRN Q6HRS PRN IM NAUSEA/VOMITING Last administered on 02/29/20at 18:55; Start 02/27/20 at 13:15 Metoprolol Tartrate (Lopressor) 50 mg 1X ONCE PO ; Start 02/27/20 at 14:00; Stop 02/27/20 at 14:01; Status DC Amlodipine Besylate (Norvasc) 10 mg DAILY PO Last administered on 03/02/20at 09:11; Start 02/28/20 at 09:00 Warfarin Sodium (Coumadin) 6 mg 1X WARF ONCE PO Last administered on 02/27/20at 15:09; Start 02/27/20 at 16:00; Stop 02/27/20 at 16:01; Status DC Lisinopril (Prinivil) 20 mg DAILY PO Last administered on 02/29/20at 08:30; Start 02/28/20 at 09:00; Stop 02/29/20 at 11:28; Status DC Enoxaparin Sodium (Lovenox 80mg Syringe) 80 mg Q12HR SQ Last administered on 03/02/20at 09:12; Start 02/28/20 at 12:15 Warfarin Sodium (Coumadin) 9 mg 1X WARF ONCE PO Last administered on 02/28/20at 17:16; Start 02/28/20 at 16:00; Stop 02/28/20 at 16:01; Status DC Warfarin Sodium (Coumadin) 9 mg 1X WARF ONCE PO Last administered on 02/29/20at 16:55; Start 02/29/20 at 16:00; Stop 02/29/20 at 16:01; Status DC Lisinopril (Prinivil) 40 mg DAILY PO Last administered on 03/02/20at 09:09; Start 03/01/20 at 09:00 Lisinopril (Prinivil) 20 mg 1X ONCE PO Last administered on 02/29/20at 14:42; Start 02/29/20 at 12:30; Stop 02/29/20 at 12:31; Status DC Hydralazine HCl (Apresoline) 100 mg TID PO Last administered on 03/02/20at 09:10; Start 03/01/20 at 14:00 Warfarin Sodium (Coumadin) 9 mg 1X WARF ONCE PO Last administered on 03/01/20at 17:59; Start 03/01/20 at 16:00; Stop 03/01/20 at 16:01; Status DC Active Scripts Active Atorvastatin Calcium 20 Mg Tablet 20 Mg PO QHS 30 Days Lisinopril 10 Mg Tablet 10 Mg PO DAILY 30 Days Tylenol (Acetaminophen) 325 Mg Tablet 650 Mg PO PRN Q6HRS PRN 30 Days Coumadin (Warfarin Sodium) 3 Mg Tablet 6 Mg PO DAILY16 30 Days Diltiazem 24HR Cd (Diltiazem Hcl) 300 Mg Cap.er.24h 300 Mg PO DAILY 30 Days Lanoxin (Digoxin) 125 Mcg Tablet 125 Mcg PO DAILY 30 Days [Albuterol Sulfate] 2.5 MG/3 ML Nebu 2.5 Mg NEB PRN Q4HRS PRN Reported Ventolin Hfa Inhaler (Albuterol Sulfate) 18 Gm Hfa.aer.ad 2 Puff INH Q4HRS Combivent Respimat Inhal (Ipratropium/Albuterol Sulfate) 4 Gm Aer.w.adap 2 Inh IH QID Loratadine 10 Mg Tablet 10 Mg PO DAILY Loperamide (Loperamide Hcl) 2 Mg Tablet 2 Mg PO PRN Q4HRS PRN Furosemide 40 Mg Tablet 40 Mg PO DAILY Metoprolol Tartrate 50 Mg Tablet 75 Mg PO BID Warfarin Sodium 1 Mg Tablet 0.5 Mg PO DAILY Hydralazine Hcl 25 Mg Tablet 1 Tab PO TID Wellbutrin Sr (Bupropion Hcl) 150 Mg Tablet.er 150 Mg PO DAILY Novolog (Insulin Aspart) 100 Unit/1 Ml Cartridge 15 Unit SQ TID Aspirin Ec (Aspirin) 81 Mg Tablet.dr 1 Tab PO DAILY Fluticasone Propionate Nasal [place] (Fluticasone Propionate) 16 Gm [place].susp 2 [place] NS DAILY LAST DOSE GIVEN: DATE: 10-13-15 TIME: 9 am NEXT DOSE DUE: DATE: 10-14-15 TIME: 9 am Vitamin D2 (Ergocalciferol (Vitamin D2)) 50,000 Unit Capsule 1 Cap PO QSA Vitals/I & O Vital Sign - Last 24 Hours 03/01/20 03/01/20 03/01/20 03/01/20 11:20 12:41 13:19 14:31 Temp 97.2 97.2 Pulse 95 95 95 Resp 18 B/P (MAP) 195/156 (169) 150/94 (112) 150/94 150/94 Pulse Ox 97 O2 Delivery Nasal Cannula O2 Flow Rate 2.5 03/01/20 03/01/20 03/01/20 03/01/20 15:00 17:59 19:00 19:00 Temp 97.6 98.4 98.4 97.6 98.4 98.4 Pulse 69 69 79 79 Resp 20 16 16 B/P (MAP) 134/77 (96) 134/77 144/92 (109) 144/92 (109) Pulse Ox 95 97 97 O2 Delivery Nasal Cannula Nasal Cannula O2 Flow Rate 2.5 2.5 03/01/20 03/01/20 03/01/20 03/01/20 20:00 20:32 20:33 23:00 Temp 98.5 98.5 Pulse 69 69 88 Resp 18 B/P (MAP) 134/77 134/77 137/77 (97) Pulse Ox 96 O2 Delivery Nasal Cannula O2 Flow Rate 2.5 03/02/20 03/02/20 03/02/20 03/02/20 00:15 03:00 05:32 07:00 Temp 97.6 98.2 97.6 98.2 Pulse 69 88 69 82 Resp 18 19 B/P (MAP) 134/77 162/82 (108) 134/77 160/84 (109) Pulse Ox 98 98 O2 Delivery Nasal Cannula O2 Flow Rate 2.0 03/02/20 03/02/20 03/02/20 03/02/20 09:09 09:10 09:11 09:11 Pulse 82 82 82 82 B/P (MAP) 160/84 160/84 160/84 160/84 Intake and Output 03/01/20 03/01/20 03/02/20 15:00 23:00 07:00 Intake Total 300 ml 150 ml Output Total 300 ml 600 ml Balance 0 ml -450 ml Images Findings: The common, internal and external carotid arteries were examined by grayscale, color and spectral Doppler ultrasound. Bilateral atherosclerotic calcifications identified in the bilateral carotid bulbs and the proximal internal carotid arteries Flow in both vertebral arteries was antegrade and normal. The following are the velocities and ratios in the carotid arteries on both sides: RIGHT ICA PV: 74cm/sec RIGHT CCA PV: 70cm/sec RIGHT ICA ED: 25cm/sec RIGHT IC/CCPV: 1.1 RIGHT VERTEBRAL: antegrade flow RIGHT % STENOSIS: Less than 50 percent LEFT ICA PV: 85cm/sec LEFT CCA PV: 75cm/sec LEFT ICA ED: 28cm/sec LEFT IC/CCPV: 1.1 LEFT VERTEBRAL: antegrade flow LEFT % STENOSIS: 50 percent <50% ICA Stenosis: PSV < 125cm/s (EDV < 40cm/s; SVR < 2.0) 50-69% ICA Stenosis: PSV < 125-229cm/s (EDV 40-99cm/s; SVR 2.0-3.9) >70% ICA Stenosis: PSV > 230cm/s (EDV >100cm/s; SVR >4.0) Impression: 1. No evidence of hemodynamically significant stenosis. 2. Bilateral atherosclerotic calcifications identified in the bilateral carotid bulbs and the proximal internal carotid arteries. JUNITO JOHNSTON MD March 02, 2020 10:02
[2020-03-02 11:00] VITALS: BP 155/80
--- NOTE | 2020-03-02 11:36 | PDOC ---
CARDIO Progress Notes Date and Time Date of Service 03/02/20 Time of Evaluation 1125 Subjective Subjective: No Chest Pain, No shortness of breath, No Palpitations, Other (vision has improved ) Vitals Vitals Vital Signs Date Time Temp Pulse Resp B/P (MAP) Pulse Ox O2 Delivery O2 Flow Rate FiO2 03/02/20 11:00 98.1 80 19 155/80 (105) 95 Nasal Cannula 1.0 98.1 Weight Weight [ ] Input and Output Intake and Output l Intake and Output 03/02/20 07:00 Intake Total 450 ml Output Total 900 ml Balance -450 ml Intake Oral 450 ml Output Urine Total 900 ml # Voids 1 Laboratory Labs Laboratory Tests Test 03/01/20 11:50 03/01/20 16:58 03/01/20 20:36 03/02/20 04:10 Glucose (Fingerstick) 192 mg/dL (70-99) 137 mg/dL (70-99) 185 mg/dL (70-99) Prothrombin Time 25.7 SEC (11.7-14.0) Prothromb Time International Ratio 2.4 (0.8-1.1) Test 03/02/20 07:23 Glucose (Fingerstick) 147 mg/dL (70-99) Microbiology Micro Microbiology 02/23/20 Blood Culture - Final, Complete NO GROWTH AFTER 5 DAYS Physical Exam HEENT: Neck Supple W Full Motion Chest: Symmetric LUNGS: Other (diminished) Heart: irregularly irregular (AFIB rate controlled) Abdomen: Soft N/T, Other Extremities: No Calf Tenderness Neurology: alert, oriented, follow commands Assessment Assessment 1. Dizziness, nausea/vomiting; improved 2. Hypertensive urgency; blood pressure better controlled with therapy titration, but remains elevated 3. Acute on chronic diastolic CHF; Recent echo with preserved LV systolic function, better compensated 4. PAFIB vs chronic: AFIB rate controlled without any further episodes of bradycardia. 5. Hyperlipidemia; statin therapy 6. Diabetes, II: Treat per IM 7. Recent COVID + 8. Vision changes; CT head with chronic ischemic microvascular changes. clinical improvement- MRI on hold Recommendations Metoprolol for rate control Warfarin for stroke prophylaxis. Consider outpatient cardioversion Continue hydralazine, norvasc, lisinopril. Will add imdur. Follow neuro JOSH Nielson APRN March 02, 2020 11:36
[2020-03-02 12:03] LABS: BASO # 0.1 x10^3/uL (0.0-0.2); BASO % 1 % (0-3); EOS # 0.2 x10^3/uL (0.0-0.7); EOS % 2 % (0-3); HEMATOCRIT 35.4 % (36.0-47.0); HEMOGLOBIN 11.2 g/dL (12.0-15.5); LYMPH # 0.5 x10^3/uL (1.0-4.8); LYMPH % 7 % (24-48); MEAN CORPUSCULAR HEMOGLOBIN 25 pg (25-35); MEAN CORPUSCULAR HGB CONC 32 g/dL (31-37); MEAN CORPUSCULAR VOLUME 77 fL (79-100); MONO # 0.7 x10^3/uL (0.0-1.1); MONO % 9 % (0-9); NEUT # 6.6 x10^3/uL (1.8-7.7); NEUT % 82 % (31-73); PLATELET COUNT 297 x10^3/uL (140-400); RED BLOOD COUNT 4.57 x10^6/uL (3.50-5.40); RED CELL DISTRIBUTION WIDTH 20.5 % (11.5-14.5)
[2020-03-02 12:30] LABS: CALCIUM 8.8 mg/dL (8.5-10.1); CREATININE 0.9 mg/dL (0.6-1.0); GFR 61.4
--- NOTE | 2020-03-02 13:57 | PDOC ---
PROGRESS NOTES Chief Complaint Chief Complaint A/P: Coronavirus infection Cough - with shortness of breath. Secondary to acute COPD exacerbation. 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 History of Present Illness History of Present Illness Ms Yang is a 74 yo F resident of [facility] w/ PMHx HTN, Hyperlipidemia, AFIB, valvular insufficiency, CHF, cardiomyopathy, COPD, Depression, DM2 who p/w cough, shortness of breath, diarrhea for the last 3-4 days. was recently tested for COVID-19 and was positive. Now, she has nausea, vomiting, and diarrhea. She has some associated dizziness. This has been occurring off and on for a few days, worse with moving, better with sitting still. She gets fatigued easily. Her dizziness worsens with change in position. She has underlying COPD, but states her shortness of breath is worse. While in the ER, she is noted to have a low-grade temperature of 100.5. She also has a mild white count elevation 13K. Chest x-ray is showing a possible atypical pneumonia. Was called for admission for further treatment In ED noted in afib, normal troponin. CXR with no acute findings. BNP 1212, K 5.2, Cr 1.1, glucose 173. Admitted for further care of Hypertensive urgency. Chest x-ray showed bilateral diffuse interstitial infiltrate and cardiomegaly. The patient received Rocephin and azithromycin 1 dose each from the ER. 02/24: States her breathing is okay, although she is normally not on oxygen. She is requiring 3 L of oxygen. Denies now any nausea, vomiting, or diarrhea which she has had, she says. Denies any abdominal pain, urinary symptoms, headache, or visual symptoms. 02/25: She is complaining blurred vision in her right eye today. No focal neurologic deficits otherwise. She lost IV access, has been converted to p.o. antibiotics and p.o. antihypertensives. 02/26: Overnight bradycardic, metoprolol had been increased to 75 mg, now reduced to 25 mg twice daily, still has Cardizem 300 mg daily. Lost IV access. SBP 198 today. HR in the 80s. Still feels very weak. 02/27: BP better controlled. On amlodipine 10 mg, lisinopril 20 mg, metoprolol. Still hypoxic still very weak still with some right eye blurring. She says she feels terrible and tired. 02/28: Overnight no events. Afebrile BP better controlled. Still hypoxic. Still with blurred vision in her right eye. Still dizzy and nauseated. 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 Neuro consult. 03/01: Overnight no events. Afebrile. BP controlled. Still hypoxic. Uncoordination and right visual blurring persist. CT results concerning for possible right cerebellar mass and left basal ganglia infarct. 03/02: Neurology communications consultant recommendations greatly appreciated. Continue with current treatment plan in light of his slow improvement, holding off on doing MRI given the stability of her clinical picture. Plan: Will add lovenox, suptherapeutic INR. Monitor BP Rehab modalities Formal visual examination, no clear signs of increased ocular pressure, Vitals Vitals Vital Signs Date Time Temp Pulse Resp B/P (MAP) Pulse Ox O2 Delivery O2 Flow Rate FiO2 03/02/20 11:00 98.1 80 19 155/80 (105) 95 Nasal Cannula 1.0 98.1 Physical Exam Physical Exam GENERAL: Alert, oriented female, not in any distress. Coop HEENT: Both pupils are round and reacting. No conjunctival lesion, no lesion in the mouth. NECK: Supple, no JVP, no lymphadenopathy. LUNGS: Clear. HEART: S1, S2 regular. ABDOMEN: Benign. EXTREMITIES: No edema or cyanosis. SKIN: Unremarkable. NEUROLOGIC: The patient is alert, awake, and appropriate. No focal neurologic deficit. Lungs: Clear Labs LABS Laboratory Tests Test 03/01/20 16:58 5/17/20 20:36 03/02/20 04:10 03/02/20 07:23 Glucose (Fingerstick) 137 mg/dL (70-99) 185 mg/dL (70-99) 147 mg/dL (70-99) Prothrombin Time 25.7 SEC (11.7-14.0) Prothromb Time International Ratio 2.4 (0.8-1.1) Test 03/02/20 10:35 White Blood Count 8.0 x10^3/uL (4.0-11.0) Red Blood Count 4.57 x10^6/uL (3.50-5.40) Hemoglobin 11.2 g/dL (12.0-15.5) Hematocrit 35.4 % (36.0-47.0) Mean Corpuscular Volume 77 fL (79-100) Mean Corpuscular Hemoglobin 25 pg (25-35) Mean Corpuscular Hemoglobin Concent 32 g/dL (31-37) Red Cell Distribution Width 20.5 % (11.5-14.5) Platelet Count 297 x10^3/uL (140-400) Neutrophils (%) (Auto) 82 % (31-73) Lymphocytes (%) (Auto) 7 % (24-48) Monocytes (%) (Auto) 9 % (0-9) Eosinophils (%) (Auto) 2 % (0-3) Basophils (%) (Auto) 1 % (0-3) Neutrophils # (Auto) 6.6 x10^3/uL (1.8-7.7) Lymphocytes # (Auto) 0.5 x10^3/uL (1.0-4.8) Monocytes # (Auto) 0.7 x10^3/uL (0.0-1.1) Eosinophils # (Auto) 0.2 x10^3/uL (0.0-0.7) Basophils # (Auto) 0.1 x10^3/uL (0.0-0.2) Erythrocyte Sedimentation Rate 14 (0-25) Sodium Level 141 mmol/L (136-145) Potassium Level 4.0 mmol/L (3.5-5.1) Chloride Level 100 mmol/L (98-107) Carbon Dioxide Level 39 mmol/L (21-32) Anion Gap 2 (6-14) Blood Urea Nitrogen 16 mg/dL (7-20) Creatinine 0.9 mg/dL (0.6-1.0) Estimated GFR (Cockcroft-Gault) 61.4 Glucose Level 127 mg/dL (70-99) Calcium Level 8.8 mg/dL (8.5-10.1) Assessment and Plan Assessmemt and Plan Problems Medical Problems: (1) COVID-19 Status: Acute (2) Hypertensive urgency Status: Acute (3) Pneumonia Status: Acute (4) Vertigo Status: Acute Comment Review of Relevant I have reviewed the following items raman (where applicable) has been applied. Labs Laboratory Tests Test 02/29/20 17:04 02/29/20 20:42 03/01/20 06:10 03/01/20 07:40 Glucose (Fingerstick) 174 mg/dL (70-99) 173 mg/dL (70-99) 141 mg/dL (70-99) Prothrombin Time 21.6 SEC (11.7-14.0) Prothromb Time International Ratio 1.9 (0.8-1.1) Test 03/01/20 11:50 03/01/20 16:58 03/01/20 20:36 03/02/20 04:10 Glucose (Fingerstick) 192 mg/dL (70-99) 137 mg/dL (70-99) 185 mg/dL (70-99) Prothrombin Time 25.7 SEC (11.7-14.0) Prothromb Time International Ratio 2.4 (0.8-1.1) Test 03/02/20 07:23 03/02/20 10:35 Glucose (Fingerstick) 147 mg/dL (70-99) White Blood Count 8.0 x10^3/uL (4.0-11.0) Red Blood Count 4.57 x10^6/uL (3.50-5.40) Hemoglobin 11.2 g/dL (12.0-15.5) Hematocrit 35.4 % (36.0-47.0) Mean Corpuscular Volume 77 fL (79-100) Mean Corpuscular Hemoglobin 25 pg (25-35) Mean Corpuscular Hemoglobin Concent 32 g/dL (31-37) Red Cell Distribution Width 20.5 % (11.5-14.5) Platelet Count 297 x10^3/uL (140-400) Neutrophils (%) (Auto) 82 % (31-73) Lymphocytes (%) (Auto) 7 % (24-48) Monocytes (%) (Auto) 9 % (0-9) Eosinophils (%) (Auto) 2 % (0-3) Basophils (%) (Auto) 1 % (0-3) Neutrophils # (Auto) 6.6 x10^3/uL (1.8-7.7) Lymphocytes # (Auto) 0.5 x10^3/uL (1.0-4.8) Monocytes # (Auto) 0.7 x10^3/uL (0.0-1.1) Eosinophils # (Auto) 0.2 x10^3/uL (0.0-0.7) Basophils # (Auto) 0.1 x10^3/uL (0.0-0.2) Erythrocyte Sedimentation Rate 14 (0-25) Sodium Level 141 mmol/L (136-145) Potassium Level 4.0 mmol/L (3.5-5.1) Chloride Level 100 mmol/L (98-107) Carbon Dioxide Level 39 mmol/L (21-32) Anion Gap 2 (6-14) Blood Urea Nitrogen 16 mg/dL (7-20) Creatinine 0.9 mg/dL (0.6-1.0) Estimated GFR (Cockcroft-Gault) 61.4 Glucose Level 127 mg/dL (70-99) Calcium Level 8.8 mg/dL (8.5-10.1) Laboratory Tests Test 03/01/20 16:58 03/01/20 20:36 03/02/20 04:10 03/02/20 07:23 Glucose (Fingerstick) 137 mg/dL (70-99) 185 mg/dL (70-99) 147 mg/dL (70-99) Prothrombin Time 25.7 SEC (11.7-14.0) Prothromb Time International Ratio 2.4 (0.8-1.1) Test 03/02/20 10:35 White Blood Count 8.0 x10^3/uL (4.0-11.0) Red Blood Count 4.57 x10^6/uL (3.50-5.40) Hemoglobin 11.2 g/dL (12.0-15.5) Hematocrit 35.4 % (36.0-47.0) Mean Corpuscular Volume 77 fL (79-100) Mean Corpuscular Hemoglobin 25 pg (25-35) Mean Corpuscular Hemoglobin Concent 32 g/dL (31-37) Red Cell Distribution Width 20.5 % (11.5-14.5) Platelet Count 297 x10^3/uL (140-400) Neutrophils (%) (Auto) 82 % (31-73) Lymphocytes (%) (Auto) 7 % (24-48) Monocytes (%) (Auto) 9 % (0-9) Eosinophils (%) (Auto) 2 % (0-3) Basophils (%) (Auto) 1 % (0-3) Neutrophils # (Auto) 6.6 x10^3/uL (1.8-7.7) Lymphocytes # (Auto) 0.5 x10^3/uL (1.0-4.8) Monocytes # (Auto) 0.7 x10^3/uL (0.0-1.1) Eosinophils # (Auto) 0.2 x10^3/uL (0.0-0.7) Basophils # (Auto) 0.1 x10^3/uL (0.0-0.2) Erythrocyte Sedimentation Rate 14 (0-25) Sodium Level 141 mmol/L (136-145) Potassium Level 4.0 mmol/L (3.5-5.1) Chloride Level 100 mmol/L (98-107) Carbon Dioxide Level 39 mmol/L (21-32) Anion Gap 2 (6-14) Blood Urea Nitrogen 16 mg/dL (7-20) Creatinine 0.9 mg/dL (0.6-1.0) Estimated GFR (Cockcroft-Gault) 61.4 Glucose Level 127 mg/dL (70-99) Calcium Level 8.8 mg/dL (8.5-10.1) Microbiology 02/23/20 Blood Culture - Final, Complete NO GROWTH AFTER 5 DAYS Medications Current Medications Ondansetron HCl (Zofran) 4 mg 1X ONCE IVP Last administered on 02/23/20at 19:43; Start 02/23/20 at 19:45; Stop 02/23/20 at 19:46; Status DC Meclizine HCl (Antivert) 25 mg 1X ONCE PO Last administered on 02/23/20at 19:44; Start 02/23/20 at 19:45; Stop 02/23/20 at 19:46; Status DC Sodium Chloride 1,000 ml @ 1,000 mls/hr Q1H IV Last administered on 02/23/20at 20:14; Start 02/23/20 at 19:28; Stop 02/23/20 at 20:27; Status DC Lorazepam (Ativan Inj) 1 mg 1X ONCE IVP Last administered on 02/23/20at 19:44; Start 02/23/20 at 19:45; Stop 02/23/20 at 19:46; Status DC Hydralazine HCl (Apresoline Inj) 10 mg 1X ONCE IVP Last administered on 02/23/20at 20:14; Start 02/23/20 at 20:00; Stop 02/23/20 at 20:03; Status DC Scopolamine (Transderm-Scop) 1 patch 1X ONCE TD Last administered on 02/23/20at 22:21; Start 02/23/20 at 22:30; Stop 02/23/20 at 22:31; Status DC Ceftriaxone Sodium (Rocephin) 1 gm 1X ONCE IVP Last administered on 02/23/20at 22:27; Start 02/23/20 at 22:30; Stop 02/23/20 at 22:31; Status DC Azithromycin (Zithromax) 500 mg 1X ONCE PO Last administered on 02/23/20at 22:26; Start 02/23/20 at 22:30; Stop 02/23/20 at 22:31; Status DC Hydralazine HCl (Apresoline Inj) 10 mg 1X ONCE IVP Last administered on at 23:12; Start 02/23/20 at 23:30; Stop 02/23/20 at 23:31; Status DC Ondansetron HCl (Zofran) 4 mg PRN Q8HRS PRN IV NAUSEA/VOMITING 1ST CHOICE; Start 02/23/20 at 23:00; Stop 02/24/20 at 22:59; Status DC Acetaminophen (Tylenol) 650 mg PRN Q4HRS PRN PO FEVER > 100.3'F; Start 02/23/20 at 23:00; Stop 02/24/20 at 12:22; Status DC Albuterol/ Ipratropium (Duoneb) 3 ml RTQID NEB ; Start 02/24/20 at 08:00; Stop 02/24/20 at 09:21; Status DC Albuterol/ Ipratropium (Duoneb) 3 ml 1X ONCE NEB ; Start 02/23/20 at 23:45; Stop 02/23/20 at 23:46; Status DC Clonidine HCl (Catapres) 0.2 mg 1X ONCE PO Last administered on 02/24/20at 00:47; Start 02/24/20 at 01:00; Stop 02/24/20 at 01:01; Status DC Albuterol/ Ipratropium (Duoneb) 3 ml PRN Q4HRS PRN NEB SHORTNESS OF BREATH; Start 02/24/20 at 09:30; Stop 02/25/20 at 09:29; Status DC Hydralazine HCl (Apresoline Inj) 10 mg PRN Q4HRS PRN IVP ELEVATED BP, SEE COMMENTS; Start 02/24/20 at 09:45; Stop 02/27/20 at 03:42; Status DC Piperacillin Sod/ Tazobactam Sod 3.375 gm/Sodium Chloride 50 ml @ 100 mls/hr Q6HRS IV Last administered on 02/26/20at 05:53; Start 02/24/20 at 12:00; Stop 02/26/20 at 10:11; Status DC Linezolid/Dextrose 300 ml @ 300 mls/hr Q12HR IV Last administered on 02/26/20at 08:55; Start 02/24/20 at 11:00; Stop 02/26/20 at 10:11; Status DC Acetaminophen (Tylenol) 650 mg PRN Q6HRS PRN PO HEADACHE/TEMP Last administered on 02/26/20at 21:38; Start 02/24/20 at 12:15 Aspirin (Ecotrin) 81 mg DAILY PO Last administered on 03/02/20at 09:09; Start 02/25/20 at 09:00 Atorvastatin Calcium (Lipitor) 20 mg QHS PO Last administered on 03/01/20at 20:34; Start 02/24/20 at 21:00 Bupropion HCl (Wellbutrin Sr) 150 mg DAILY PO Last administered on 03/02/20at 09:08; Start 02/25/20 at 09:00 Digoxin (Lanoxin) 125 mcg DAILY PO ; Start 02/25/20 at 09:00; Stop 02/24/20 at 16:58; Status DC Diltiazem HCl (Cardizem 24hr Cd) 300 mg DAILY PO ; Start 02/25/20 at 09:00; Stop 02/24/20 at 16:58; Status DC Ergocalciferol (Vitamin D2) 50,000 unit QSA PO Last administered on 02/29/20at 16:54; Start 02/29/20 at 16:00 Fluticasone Propionate (Flonase) 2 spray DAILY NS Last administered on 03/02/20at 09:48; Start 02/25/20 at 09:00 Furosemide (Lasix) 40 mg DAILY PO Last administered on 03/02/20at 09:11; Start 02/25/20 at 09:00 Hydralazine HCl (Apresoline) 25 mg TID PO Last administered on 02/26/20at 08:56; Start 02/24/20 at 14:00; Stop 02/26/20 at 11:53; Status DC Lisinopril (Prinivil) 10 mg DAILY PO ; Start 02/25/20 at 09:00; Stop 02/24/20 at 16:58; Status DC Metoprolol Tartrate (Lopressor) 75 mg BID PO Last administered on 02/26/20at 08:56; Start 02/24/20 at 21:00; Stop 02/26/20 at 16:25; Status DC Warfarin Sodium (Coumadin) 0.5 mg DAILY PO ; Start 02/25/20 at 09:00; Stop 02/24/20 at 13:04; Status DC Warfarin Sodium (Coumadin) 6 mg DAILY16 PO ; Start 02/24/20 at 16:00; Status UNV Insulin Human Lispro (HumaLOG) 15 units TIDWMEALS SQ Last administered on 03/02/20at 12:25; Start 02/24/20 at 17:00 Loperamide HCl (Imodium) 2 mg PRN Q15MIN PRN PO DIARRHEA; Start 02/24/20 at 12:45 Cetirizine HCl (ZyrTEC) 10 mg DAILY PO Last administered on 03/02/20at 09:09; Start 02/25/20 at 09:00 Warfarin Sodium (Coumadin Per Pharmacy) 1 each PRN DAILY PRN MC SEE COMMENTS Last administered on 03/01/20at 12:34; Start 02/24/20 at 12:45 Warfarin Sodium (Coumadin) 4 mg 1X WARF ONCE PO Last administered on 02/24/20at 17:27; Start 02/24/20 at 16:00; Stop 02/24/20 at 16:01; Status DC Furosemide (Lasix) 40 mg 1X ONCE IVP Last administered on 02/24/20at 17:25; Start 02/24/20 at 17:00; Stop 02/24/20 at 17:01; Status DC Digoxin (Lanoxin) 125 mcg DAILY PO Last administered on 02/26/20at 08:57; Start 02/24/20 at 17:00; Stop 02/26/20 at 16:25; Status DC Diltiazem HCl (Cardizem 24hr Cd) 300 mg DAILY PO Last administered on 02/26/20at 08:57; Start 02/24/20 at 17:00; Stop 02/26/20 at 16:25; Status DC Lisinopril (Prinivil) 10 mg DAILY PO Last administered on 02/27/20at 09:02; Start 02/24/20 at 17:00; Stop 02/28/20 at 08:56; Status DC Ondansetron HCl (Zofran) 4 mg PRN Q6HRS PRN IVP NAUSEA/VOMITING Last administered on 02/25/20at 11:41; Start 02/25/20 at 11:30; Stop 02/27/20 at 03:42; Status DC Warfarin Sodium (Coumadin) 6 mg 1X WARF ONCE PO Last administered on 02/25/20at 17:21; Start 02/25/20 at 16:00; Stop 02/25/20 at 16:01; Status DC Lactobacillus Rhamnosus (Culturelle) 1 cap BID PO Last administered on 03/02/20at 09:10; Start 02/25/20 at 21:00 Amoxicillin/ Clavulanate Potassium (Augmentin 875/ 125mg) 1 tab BID PO Last administered on 03/01/20at 20:32; Start 02/26/20 at 21:00; Stop 03/01/20 at 21:59; Status DC Hydralazine HCl (Apresoline) 50 mg TID PO Last administered on 02/26/20at 13:34; Start 02/26/20 at 14:00; Stop 02/26/20 at 16:25; Status DC Zinc Sulfate (Orazinc) 220 mg DAILY PO Last administered on 03/02/20at 09:09; Start 02/27/20 at 09:00 Latanoprost (Xalatan) 1 drop QHS OU Last administered on 03/01/20at 20:34; Start 02/26/20 at 12:45 Diltiazem HCl (Cardizem 24hr Cd) 300 mg DAILYWLUN PO ; Start 02/27/20 at 12:00; Stop 02/28/20 at 08:56; Status DC Hydralazine HCl (Apresoline) 75 mg TID PO Last administered on 03/01/20at 09:14; Start 02/26/20 at 21:00; Stop 03/01/20 at 10:22; Status DC Metoprolol Tartrate (Lopressor) 50 mg BID PO Last administered on 03/02/20at 09:11; Start 02/27/20 at 21:00 Amlodipine Besylate (Norvasc) 10 mg DAILY ONCE PO ; Start 02/28/20 at 09:00; Stop 02/27/20 at 11:57; Status DC Nitroglycerin (Nitro-Bid Oint) 1 inch Q6HRS TP Last administered on 03/02/20at 05:32; Start 02/27/20 at 12:00 Amlodipine Besylate (Norvasc) 10 mg 1X ONCE PO Last administered on 02/27/20at 12:28; Start 02/27/20 at 12:00; Stop 02/27/20 at 12:01; Status DC Ondansetron HCl (Zofran Odt) 4 mg PRN Q6HRS PRN PO NAUSEA/VOMITING Last administered on 02/27/20at 15:08; Start 02/27/20 at 13:15 Prochlorperazine Edisylate (Compazine) 10 mg PRN Q6HRS PRN IM NAUSEA/VOMITING Last administered on 02/29/20at 18:55; Start 02/27/20 at 13:15 Metoprolol Tartrate (Lopressor) 50 mg 1X ONCE PO ; Start 02/27/20 at 14:00; Stop 02/27/20 at 14:01; Status DC Amlodipine Besylate (Norvasc) 10 mg DAILY PO Last administered on 03/02/20at 09:11; Start 02/28/20 at 09:00 Warfarin Sodium (Coumadin) 6 mg 1X WARF ONCE PO Last administered on 02/27/20at 15:09; Start 02/27/20 at 16:00; Stop 02/27/20 at 16:01; Status DC Lisinopril (Prinivil) 20 mg DAILY PO Last administered on 02/29/20at 08:30; Start 02/28/20 at 09:00; Stop 02/29/20 at 11:28; Status DC Enoxaparin Sodium (Lovenox 80mg Syringe) 80 mg Q12HR SQ Last administered on 03/02/20at 09:12; Start 02/28/20 at 12:15 Warfarin Sodium (Coumadin) 9 mg 1X WARF ONCE PO Last administered on 02/28/20at 17:16; Start 02/28/20 at 16:00; Stop 02/28/20 at 16:01; Status DC Warfarin Sodium (Coumadin) 9 mg 1X WARF ONCE PO Last administered on 02/29/20at 16:55; Start 02/29/20 at 16:00; Stop 02/29/20 at 16:01; Status DC Lisinopril (Prinivil) 40 mg DAILY PO Last administered on 03/02/20at 09:09; Start 03/01/20 at 09:00 Lisinopril (Prinivil) 20 mg 1X ONCE PO Last administered on 02/29/20at 14:42; Start 02/29/20 at 12:30; Stop 02/29/20 at 12:31; Status DC Hydralazine HCl (Apresoline) 100 mg TID PO Last administered on 03/02/20at 09:10; Start 03/01/20 at 14:00 Warfarin Sodium (Coumadin) 9 mg 1X WARF ONCE PO Last administered on 03/01/20at 17:59; Start 03/01/20 at 16:00; Stop 03/01/20 at 16:01; Status DC Active Scripts Active Atorvastatin Calcium 20 Mg Tablet 20 Mg PO QHS 30 Days Lisinopril 10 Mg Tablet 10 Mg PO DAILY 30 Days Tylenol (Acetaminophen) 325 Mg Tablet 650 Mg PO PRN Q6HRS PRN 30 Days Coumadin (Warfarin Sodium) 3 Mg Tablet 6 Mg PO DAILY16 30 Days Diltiazem 24HR Cd (Diltiazem Hcl) 300 Mg Cap.er.24h 300 Mg PO DAILY 30 Days Lanoxin (Digoxin) 125 Mcg Tablet 125 Mcg PO DAILY 30 Days [Albuterol Sulfate] 2.5 MG/3 ML Nebu 2.5 Mg NEB PRN Q4HRS PRN Reported Ventolin Hfa Inhaler (Albuterol Sulfate) 18 Gm Hfa.aer.ad 2 Puff INH Q4HRS Combivent Respimat Inhal (Ipratropium/Albuterol Sulfate) 4 Gm Aer.w.adap 2 Inh IH QID Loratadine 10 Mg Tablet 10 Mg PO DAILY Loperamide (Loperamide Hcl) 2 Mg Tablet 2 Mg PO PRN Q4HRS PRN Furosemide 40 Mg Tablet 40 Mg PO DAILY Metoprolol Tartrate 50 Mg Tablet 75 Mg PO BID Warfarin Sodium 1 Mg Tablet 0.5 Mg PO DAILY Hydralazine Hcl 25 Mg Tablet 1 Tab PO TID Wellbutrin Sr (Bupropion Hcl) 150 Mg Tablet.er 150 Mg PO DAILY Novolog (Insulin Aspart) 100 Unit/1 Ml Cartridge 15 Unit SQ TID Aspirin Ec (Aspirin) 81 Mg Tablet.dr 1 Tab PO DAILY Fluticasone Propionate Nasal [place] (Fluticasone Propionate) 16 Gm [place].susp 2 [place] NS DAILY LAST DOSE GIVEN: DATE: 10-13-15 TIME: 9 am NEXT DOSE DUE: DATE: 10-14-15 TIME: 9 am Vitamin D2 (Ergocalciferol (Vitamin D2)) 50,000 Unit Capsule 1 Cap PO QSA Vitals/I & O Vital Sign - Last 24 Hours 03/01/20 03/01/20 03/01/20 03/01/20 14:31 15:00 17:59 19:00 Temp 97.6 98.4 97.6 98.4 Pulse 95 69 69 79 Resp 20 16 B/P (MAP) 150/94 134/77 (96) 134/77 144/92 (109) Pulse Ox 95 97 O2 Delivery Nasal Cannula Nasal Cannula O2 Flow Rate 2.5 2.5 03/01/20 03/01/20 03/01/20 03/01/20 19:00 20:00 20:32 20:33 Temp 98.4 98.4 Pulse 79 69 69 Resp 16 B/P (MAP) 144/92 (109) 134/77 134/77 Pulse Ox 97 O2 Delivery Nasal Cannula O2 Flow Rate 2.5 03/01/20 03/02/20 03/02/20 03/02/20 23:00 00:15 03:00 05:32 Temp 98.5 97.6 98.5 97.6 Pulse 88 69 88 69 Resp 18 18 B/P (MAP) 137/77 (97) 134/77 162/82 (108) 134/77 Pulse Ox 96 98 03/02/20 03/02/20 03/02/20 03/02/20 07:00 08:00 09:09 09:10 Temp 98.2 98.2 Pulse 82 82 82 Resp 19 B/P (MAP) 160/84 (109) 160/84 160/84 Pulse Ox 98 O2 Delivery Nasal Cannula Nasal Cannula O2 Flow Rate 1.0 2.0 03/02/20 03/02/20 03/02/20 09:11 09:11 11:00 Temp 98.1 98.1 Pulse 82 82 80 Resp 19 B/P (MAP) 160/84 160/84 155/80 (105) Pulse Ox 95 O2 Delivery Nasal Cannula O2 Flow Rate 1.0 Intake and Output 03/01/20 03/01/20 03/02/20 15:00 23:00 07:00 Intake Total 300 ml 150 ml Output Total 300 ml 600 ml Balance 0 ml -450 ml Nutrition Consultation Dietary Evaluation: Recommendations by RD: Dietary education by RD, Increase Calorie Intake, Protein supplementation Comments: REC continue ADA/cardiac diet with glucerna changed from bid to tid Expected Outcomes/Goals: to meet >75% est nutrition and fluid needs- goal ongoing Malnutrition Findings: Food and Nutrition Intake (Mod: <75% est energy req 7days Weight Status: Morbidly Obese Fluid Accumulation (Non-Severe: Mild depletion SOCORRO RICKETTS MD March 02, 2020 13:57
[2020-03-02] MEDS: ISOSORBIDE MONONITRATE ER 30 MG TAB.ER.24H PO SCH (14:49)
[2020-03-02 14:51] VITALS: BP 126/60
--- NOTE | 2020-03-02 15:59 | NUR ---
Pharmacy Warfarin Dosing Note S: Pharmacy consulted to assist with anticoagulation therapy O: MICHAELA COOPER is a 74 year old F with Atrial Fibrillation LABS: Last INR: 2.4 Last HGB: 11.2 Last HCT: 35.4 Last PLT: 297 Last dose of 9MG given on 03/01/20 at 1509 Ongoing Drug Interactions: ASA A:INR of 2.4 is within desired range of 2 - 3. Lovenox bridge will be stopped with therapeutic INR. P: Warfarin dose: 7.5 mg Today at 1600 Bridge Therapy: n/a Next INR due 03/03/20 Pharmacy anticoagulation service will continue to follow. ALYSSA KIRKPATRICK [facility], 03/02/20 [id number]
[2020-03-02] MEDS ORDERED: WARFARIN 7.5 MG TABLET. PO ONE (16:00)
[2020-03-02] MEDS ORDERED: ONDANSETRON PF 4 MG/2 ML VIAL. IM ONE (16:15)
[2020-03-02] MEDS: ACETAMINOPHEN 325 MG TABLET. PO PRN (16:41)
[2020-03-02 19:00] VITALS: BP 103/69
[2020-03-02] MEDS: LATANOPROST 0.005% OPHTH SOLUTION 2.5ML BOTTLE. OU SCH (21:00)
[2020-03-02] MEDS: ATORVASTATIN CALCIUM 20 MG TABLET PO SCH (21:00)
[2020-03-02 23:00] VITALS: BP 129/65
[2020-03-03 03:00] VITALS: BP 158/68
[2020-03-03] MEDS: NITROGLYCERIN OINT 1 GM PACKET. TP SCH ×3 (06:00→12:16)
[2020-03-03 06:24] LABS: PROTHROMBIN TIME PATIENT 29.6 SEC (11.7-14.0)
[2020-03-03 07:00] VITALS: BP 158/95
[2020-03-03] MEDS: METOPROLOL TART IMMED RELEASE 50 MG TABLET. PO SCH ×2 (08:22→21:06)
[2020-03-03] MEDS: ISOSORBIDE MONONITRATE ER 30 MG TAB.ER.24H PO SCH (08:22)
[2020-03-03] MEDS: ZINC SULFATE 220 MG CAPSULE. PO SCH (08:22)
[2020-03-03] MEDS: FUROSEMIDE 40 MG TABLET. PO SCH (08:23)
[2020-03-03] MEDS: LACTOBACILLUS RHAMNOSUS GG 1 CAPSULE. PO SCH ×2 (08:23→21:07)
[2020-03-03] MEDS: CETIRIZINE HCL 10 MG TABLET. PO SCH (08:23)
[2020-03-03] MEDS: ASPIRIN ENTERIC COATED 81 MG TABLET.DR. PO SCH (08:23)
[2020-03-03] MEDS: buPROPion SR 150 MG TABLET.SA PO SCH (08:23)
[2020-03-03] MEDS: amLODIPine BESYLATE 10 MG TABLET PO SCH (08:24)
[2020-03-03] MEDS: LISINOPRIL 20 MG TABLET PO SCH (08:24)
[2020-03-03] MEDS: INSULIN LISPRO 300 UNITS/3 ML VIAL. SQ SCH ×3 (08:28→17:19)
[2020-03-03] MEDS: FLUTICASONE 50MCG/NASAL SPRAY 16GM BOTTLE. NS SCH (08:29)
[2020-03-03 11:00] VITALS: BP 138/85
--- NOTE | 2020-03-03 11:11 | PDOC ---
CARDIO Progress Notes Date and Time Date of Service 03/03/2020 Time of Evaluation 1030 Subjective Subjective: No Chest Pain, No shortness of breath, No Palpitations, Other (vision has improved ) Vitals Vitals Vital Signs Date Time Temp Pulse Resp B/P (MAP) Pulse Ox O2 Delivery O2 Flow Rate FiO2 03/03/20 08:24 95 158/95 03/03/20 07:00 98.0 22 97 Nasal Cannula 2.0 98.0 Weight Weight [ ] Input and Output Intake and Output Intake and Output 03/03/20 07:00 Intake Total 900 ml Output Total 500 ml Balance 400 ml Intake Oral 900 ml Output Urine Total 500 ml Laboratory Labs Laboratory Tests Test 03/02/20 16:22 03/02/20 21:04 03/03/20 05:30 03/03/20 07:59 Glucose (Fingerstick) 185 mg/dL (70-99) 158 mg/dL (70-99) 144 mg/dL (70-99) Prothrombin Time 29.6 SEC (11.7-14.0) Prothromb Time International Ratio 2.8 (0.8-1.1) Microbiology Micro Microbiology 02/23/20 Blood Culture - Final, Complete NO GROWTH AFTER 5 DAYS Physical Exam Chest: Symmetric LUNGS: Other (diminished) Heart: irregularly irregular (AFIB rate controlled) Extremities: No Edema Neurology: alert, oriented, follow commands Other Exams Discussed with RN, no new symptoms. No distress. Labs reviewed. AFIB rate controlled with metoprolol Assessment Assessment 1. Dizziness, nausea/vomiting: none further. notable for possible right cerebellar mass, awaiting neurosurgery input 2. Hypertensive urgency; controlled 3. Acute on chronic diastolic CHF; Recent echo with preserved LV systolic function, compensated 4. PAFIB vs chronic: AFIB rate controlled no further bradycardia since removal of dig and cardizem. 5. Hyperlipidemia; statin therapy 6. Diabetes, II 7. Recent COVID + with associated COPD; unknown date Recommendations 1. No further Dig and cardizem. Continue metoprolol. Coumadin for stroke prevention INR 2.8 2. Continue current BP regimen including metoprolol. 3. Consider outpatient cardioversion once fully recovered from covid. 4. Supportive care. Follow up in 4-6 weeks IVETTE COREA APRN March 03, 2020 11:11
--- NOTE | 2020-03-03 12:16 | PDOC ---
PROGRESS NOTES Chief Complaint Chief Complaint A/P: Coronavirus infection Cough - with shortness of breath. Secondary to acute COPD exacerbation. 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 History of Present Illness History of Present Illness Ms Yang is a 74 yo F resident of [facility] w/ PMHx HTN, Hyperlipidemia, AFIB, valvular insufficiency, CHF, cardiomyopathy, COPD, Depression, DM2 who p/w cough, shortness of breath, diarrhea for the last 3-4 days. was recently tested for COVID-19 and was positive. Now, she has nausea, vomiting, and diarrhea. She has some associated dizziness. This has been occurring off and on for a few days, worse with moving, better with sitting still. She gets fatigued easily. Her dizziness worsens with change in position. She has underlying COPD, but states her shortness of breath is worse. While in the ER, she is noted to have a low-grade temperature of 100.5. She also has a mild white count elevation 13K. Chest x-ray is showing a possible atypical pneumonia. Was called for admission for further treatment In ED noted in afib, normal troponin. CXR with no acute findings. BNP 1212, K 5.2, Cr 1.1, glucose 173. Admitted for further care of Hypertensive urgency. Chest x-ray showed bilateral diffuse interstitial infiltrate and cardiomegaly. The patient received Rocephin and azithromycin 1 dose each from the ER. 02/24: States her breathing is okay, although she is normally not on oxygen. She is requiring 3 L of oxygen. Denies now any nausea, vomiting, or diarrhea which she has had, she says. Denies any abdominal pain, urinary symptoms, headache, or visual symptoms. 02/25: She is complaining blurred vision in her right eye today. No focal neurologic deficits otherwise. She lost IV access, has been converted to p.o. antibiotics and p.o. antihypertensives. 02/26: Overnight bradycardic, metoprolol had been increased to 75 mg, now reduced to 25 mg twice daily, still has Cardizem 300 mg daily. Lost IV access. SBP 198 today. HR in the 80s. Still feels very weak. 02/27: BP better controlled. On amlodipine 10 mg, lisinopril 20 mg, metoprolol. Still hypoxic still very weak still with some right eye blurring. She says she feels terrible and tired. 02/28: Overnight no events. Afebrile BP better controlled. Still hypoxic. Still with blurred vision in her right eye. Still dizzy and nauseated. 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 Neuro consult. 03/01: Overnight no events. Afebrile. BP controlled. Still hypoxic. Uncoordination and right visual blurring persist. CT results concerning for possible right cerebellar mass and left basal ganglia infarct. 03/02: Neurology specification consultant recommendations greatly appreciated. Continue with current treatment plan in light of his slow improvement, holding off on doing MRI given the stability of her clinical picture. 03/03: Patient from the neurosurgical standpoint of view according to nursing staff is okay to be dismissed despite not having an MRI which can be done in the outpatient setting, patient seems to be not progressing much we will continue to monitor for the next 24 hours Plan: Will add lovenox, suptherapeutic INR. Monitor BP Rehab modalities Formal visual examination, no clear signs of increased ocular pressure, Vitals Vitals Vital Signs Date Time Temp Pulse Resp B/P (MAP) Pulse Ox O2 Delivery O2 Flow Rate FiO2 03/03/20 11:00 97.9 89 20 138/85 (102) 98 Nasal Cannula 2.0 97.9 Physical Exam Physical Exam GENERAL: Alert, oriented female, not in any distress. Coop HEENT: Both pupils are round and reacting. No conjunctival lesion, no lesion in the mouth. NECK: Supple, no JVP, no lymphadenopathy. LUNGS: Clear. HEART: S1, S2 regular. ABDOMEN: Benign. EXTREMITIES: No edema or cyanosis. SKIN: Unremarkable. NEUROLOGIC: The patient is alert, awake, and appropriate. No focal neurologic deficit. Lungs: Clear Labs LABS Laboratory Tests Test 03/02/20 16:22 03/02/20 21:04 03/03/20 05:30 03/03/20 07:59 Glucose (Fingerstick) 185 mg/dL (70-99) 158 mg/dL (70-99) 144 mg/dL (70-99) Prothrombin Time 29.6 SEC (11.7-14.0) Prothromb Time International Ratio 2.8 (0.8-1.1) Assessment and Plan Assessmemt and Plan Problems Medical Problems: (1) COVID-19 Status: Acute (2) Hypertensive urgency Status: Acute (3) Pneumonia Status: Acute (4) Vertigo Status: Acute Comment Review of Relevant I have reviewed the following items raman (where applicable) has been applied. Labs Laboratory Tests Test 03/01/20 16:58 03/01/20 20:36 03/02/20 04:10 03/02/20 07:23 Glucose (Fingerstick) 137 mg/dL (70-99) 185 mg/dL (70-99) 147 mg/dL (70-99) Prothrombin Time 25.7 SEC (11.7-14.0) Prothromb Time International Ratio 2.4 (0.8-1.1) Test 03/02/20 10:35 03/02/20 16:22 03/02/20 21:04 03/03/20 05:30 White Blood Count 8.0 x10^3/uL (4.0-11.0) Red Blood Count 4.57 x10^6/uL (3.50-5.40) Hemoglobin 11.2 g/dL (12.0-15.5) Hematocrit 35.4 % (36.0-47.0) Mean Corpuscular Volume 77 fL (79-100) Mean Corpuscular Hemoglobin 25 pg (25-35) Mean Corpuscular Hemoglobin Concent 32 g/dL (31-37) Red Cell Distribution Width 20.5 % (11.5-14.5) Platelet Count 297 x10^3/uL (140-400) Neutrophils (%) (Auto) 82 % (31-73) Lymphocytes (%) (Auto) 7 % (24-48) Monocytes (%) (Auto) 9 % (0-9) Eosinophils (%) (Auto) 2 % (0-3) Basophils (%) (Auto) 1 % (0-3) Neutrophils # (Auto) 6.6 x10^3/uL (1.8-7.7) Lymphocytes # (Auto) 0.5 x10^3/uL (1.0-4.8) Monocytes # (Auto) 0.7 x10^3/uL (0.0-1.1) Eosinophils # (Auto) 0.2 x10^3/uL (0.0-0.7) Basophils # (Auto) 0.1 x10^3/uL (0.0-0.2) Erythrocyte Sedimentation Rate 14 (0-25) Sodium Level 141 mmol/L (136-145) Potassium Level 4.0 mmol/L (3.5-5.1) Chloride Level 100 mmol/L (98-107) Carbon Dioxide Level 39 mmol/L (21-32) Anion Gap 2 (6-14) Blood Urea Nitrogen 16 mg/dL (7-20) Creatinine 0.9 mg/dL (0.6-1.0) Estimated GFR (Cockcroft-Gault) 61.4 Glucose Level 127 mg/dL (70-99) Calcium Level 8.8 mg/dL (8.5-10.1) Glucose (Fingerstick) 185 mg/dL (70-99) 158 mg/dL (70-99) Prothrombin Time 29.6 SEC (11.7-14.0) Prothromb Time International Ratio 2.8 (0.8-1.1) Test 03/03/20 07:59 Glucose (Fingerstick) 144 mg/dL (70-99) Laboratory Tests Test 03/02/20 16:22 03/02/20 21:04 03/03/20 05:30 03/03/20 07:59 Glucose (Fingerstick) 185 mg/dL (70-99) 158 mg/dL (70-99) 144 mg/dL (70-99) Prothrombin Time 29.6 SEC (11.7-14.0) Prothromb Time International Ratio 2.8 (0.8-1.1) Microbiology 02/23/20 Blood Culture - Final, Complete NO GROWTH AFTER 5 DAYS Medications Current Medications Ondansetron HCl (Zofran) 4 mg 1X ONCE IVP Last administered on 02/23/20at 19:43; Start 02/23/20 at 19:45; Stop 02/23/20 at 19:46; Status DC Meclizine HCl (Antivert) 25 mg 1X ONCE PO Last administered on 02/23/20at 19:44; Start 02/23/20 at 19:45; Stop 02/23/20 at 19:46; Status DC Sodium Chloride 1,000 ml @ 1,000 mls/hr Q1H IV Last administered on 02/23/20at 20:14; Start 02/23/20 at 19:28; Stop 02/23/20 at 20:27; Status DC Lorazepam (Ativan Inj) 1 mg 1X ONCE IVP Last administered on 02/23/20at 19:44; Start 02/23/20 at 19:45; Stop 02/23/20 at 19:46; Status DC Hydralazine HCl (Apresoline Inj) 10 mg 1X ONCE IVP Last administered on 02/23/20at 20:14; Start 02/23/20 at 20:00; Stop 02/23/20 at 20:03; Status DC Scopolamine (Transderm-Scop) 1 patch 1X ONCE TD Last administered on 02/23/20at 22:21; Start 02/23/20 at 22:30; Stop 02/23/20 at 22:31; Status DC Ceftriaxone Sodium (Rocephin) 1 gm 1X ONCE IVP Last administered on 02/23/20at 22:27; Start 02/23/20 at 22:30; Stop 02/23/20 at 22:31; Status DC Azithromycin (Zithromax) 500 mg 1X ONCE PO Last administered on 02/23/20at 22:26; Start 02/23/20 at 22:30; Stop 02/23/20 at 22:31; Status DC Hydralazine HCl (Apresoline Inj) 10 mg 1X ONCE IVP Last administered on 02/23/20at 23:12; Start 02/23/20 at 23:30; Stop 02/23/20 at 23:31; Status DC Ondansetron HCl (Zofran) 4 mg PRN Q8HRS PRN IV NAUSEA/VOMITING 1ST CHOICE; Start 02/23/20 at 23:00; Stop 02/24/20 at 22:59; Status DC Acetaminophen (Tylenol) 650 mg PRN Q4HRS PRN PO FEVER > 100.3'F; Start 02/23/20 at 23:00; Stop 02/24/20 at 12:22; Status DC Albuterol/ Ipratropium (Duoneb) 3 ml RTQID NEB ; Start 02/24/20 at 08:00; Stop 02/24/20 at 09:21; Status DC Albuterol/ Ipratropium (Duoneb) 3 ml 1X ONCE NEB ; Start 02/23/20 at 23:45; Stop 02/23/20 at 23:46; Status DC Clonidine HCl (Catapres) 0.2 mg 1X ONCE PO Last administered on 02/24/20at 00:47; Start 02/24/20 at 01:00; Stop 02/24/20 at 01:01; Status DC Albuterol/ Ipratropium (Duoneb) 3 ml PRN Q4HRS PRN NEB SHORTNESS OF BREATH; Start 02/24/20 at 09:30; Stop 02/25/20 at 09:29; Status DC Hydralazine HCl (Apresoline Inj) 10 mg PRN Q4HRS PRN IVP ELEVATED BP, SEE COMMENTS; Start 02/24/20 at 09:45; Stop 02/27/20 at 03:42; Status DC Piperacillin Sod/ Tazobactam Sod 3.375 gm/Sodium Chloride 50 ml @ 100 mls/hr Q6HRS IV Last administered on 02/26/20at 05:53; Start 02/24/20 at 12:00; Stop 02/26/20 at 10:11; Status DC Linezolid/Dextrose 300 ml @ 300 mls/hr Q12HR IV Last administered on 02/26/20at 08:55; Start 02/24/20 at 11:00; Stop 02/26/20 at 10:11; Status DC Acetaminophen (Tylenol) 650 mg PRN Q6HRS PRN PO HEADACHE/TEMP Last administered on 03/02/20at 16:41; Start 02/24/20 at 12:15 Aspirin (Ecotrin) 81 mg DAILY PO Last administered on 03/03/20at 08:23; Start 02/25/20 at 09:00 Atorvastatin Calcium (Lipitor) 20 mg QHS PO Last administered on 03/02/20at 21:00; Start 02/24/20 at 21:00 Bupropion HCl (Wellbutrin Sr) 150 mg DAILY PO Last administered on 03/03/20at 08:23; Start 02/25/20 at 09:00 Digoxin (Lanoxin) 125 mcg DAILY PO ; Start 02/25/20 at 09:00; Stop 02/24/20 at 16:58; Status DC Diltiazem HCl (Cardizem 24hr Cd) 300 mg DAILY PO ; Start 02/25/20 at 09:00; Stop 02/24/20 at 16:58; Status DC Ergocalciferol (Vitamin D2) 50,000 unit QSA PO Last administered on 02/29/20at 16:54; Start 02/29/20 at 16:00 Fluticasone Propionate (Flonase) 2 spray DAILY NS Last administered on 03/03/20at 08:29; Start 02/25/20 at 09:00 Furosemide (Lasix) 40 mg DAILY PO Last administered on 03/03/20at 08:23; Start 02/25/20 at 09:00 Hydralazine HCl (Apresoline) 25 mg TID PO Last administered on 02/26/20at 08:56; Start 02/24/20 at 14:00; Stop 02/26/20 at 11:53; Status DC Lisinopril (Prinivil) 10 mg DAILY PO ; Start 02/25/20 at 09:00; Stop 02/24/20 at 16:58; Status DC Metoprolol Tartrate (Lopressor) 75 mg BID PO Last administered on 02/26/20at 08:56; Start 02/24/20 at 21:00; Stop 02/26/20 at 16:25; Status DC Warfarin Sodium (Coumadin) 0.5 mg DAILY PO ; Start 02/25/20 at 09:00; Stop 02/24/20 at 13:04; Status DC Warfarin Sodium (Coumadin) 6 mg DAILY16 PO ; Start 02/24/20 at 16:00; Status UNV Insulin Human Lispro (HumaLOG) 15 units TIDWMEALS SQ Last administered on 03/03/20at 12:09; Start 02/24/20 at 17:00 Loperamide HCl (Imodium) 2 mg PRN Q15MIN PRN PO DIARRHEA; Start 02/24/20 at 12:45 Cetirizine HCl (ZyrTEC) 10 mg DAILY PO Last administered on 03/03/20at 08:23; Start 02/25/20 at 09:00 Warfarin Sodium (Coumadin Per Pharmacy) 1 each PRN DAILY PRN MC SEE COMMENTS Last administered on 03/02/20at 15:59; Start 02/24/20 at 12:45 Warfarin Sodium (Coumadin) 4 mg 1X WARF ONCE PO Last administered on 02/24/20at 17:27; Start 02/24/20 at 16:00; Stop 02/24/20 at 16:01; Status DC Furosemide (Lasix) 40 mg 1X ONCE IVP Last administered on 02/24/20at 17:25; Start 02/24/20 at 17:00; Stop 02/24/20 at 17:01; Status DC Digoxin (Lanoxin) 125 mcg DAILY PO Last administered on 02/26/20at 08:57; Start 02/24/20 at 17:00; Stop 02/26/20 at 16:25; Status DC Diltiazem HCl (Cardizem 24hr Cd) 300 mg DAILY PO Last administered on 02/26/20at 08:57; Start 02/24/20 at 17:00; Stop 02/26/20 at 16:25; Status DC Lisinopril (Prinivil) 10 mg DAILY PO Last administered on 02/27/20at 09:02; Start 02/24/20 at 17:00; Stop 02/28/20 at 08:56; Status DC Ondansetron HCl (Zofran) 4 mg PRN Q6HRS PRN IVP NAUSEA/VOMITING Last administered on 02/25/20at 11:41; Start 02/25/20 at 11:30; Stop 02/27/20 at 03:42; Status DC Warfarin Sodium (Coumadin) 6 mg 1X WARF ONCE PO Last administered on 02/25/20at 17:21; Start 02/25/20 at 16:00; Stop 02/25/20 at 16:01; Status DC Lactobacillus Rhamnosus (Culturelle) 1 cap BID PO Last administered on 03/03/20at 08:23; Start 02/25/20 at 21:00 Amoxicillin/ Clavulanate Potassium (Augmentin 875/ 125mg) 1 tab BID PO Last administered on 03/01/20at 20:32; Start 02/26/20 at 21:00; Stop 03/01/20 at 21:59; Status DC Hydralazine HCl (Apresoline) 50 mg TID PO Last administered on 02/26/20at 13:34; Start 02/26/20 at 14:00; Stop 02/26/20 at 16:25; Status DC Zinc Sulfate (Orazinc) 220 mg DAILY PO Last administered on 03/03/20 08:22; Start 02/27/20 at 09:00 Latanoprost (Xalatan) 1 drop QHS OU Last administered on 03/01/20at 20:34; Start 02/26/20 at 12:45 Diltiazem HCl (Cardizem 24hr Cd) 300 mg DAILYWLUN PO ; Start 02/27/20 at 12:00; Stop 02/28/20 at 08:56; Status DC Hydralazine HCl (Apresoline) 75 mg TID PO Last administered on 03/01/20at 09:14; Start 02/26/20 at 21:00; Stop 03/01/20 at 10:22; Status DC Metoprolol Tartrate (Lopressor) 50 mg BID PO Last administered on 03/03/20at 08:22; Start 02/27/20 at 21:00 Amlodipine Besylate (Norvasc) 10 mg DAILY ONCE PO ; Start 02/28/20 at 09:00; Stop 02/27/20 at 11:57; Status DC Nitroglycerin (Nitro-Bid Oint) 1 inch Q6HRS TP Last administered on 03/02/20at 17:15; Start 02/27/20 at 12:00 Amlodipine Besylate (Norvasc) 10 mg 1X ONCE PO Last administered on 02/27/20at 12:28; Start 02/27/20 at 12:00; Stop 02/27/20 at 12:01; Status DC Ondansetron HCl (Zofran Odt) 4 mg PRN Q6HRS PRN PO NAUSEA/VOMITING Last administered on 02/27/20 15:08; Start 02/27/20 at 13:15 Prochlorperazine Edisylate (Compazine) 10 mg PRN Q6HRS PRN IM NAUSEA/VOMITING Last administered on 02/29/20at 18:55; Start 02/27/20 at 13:15 Metoprolol Tartrate (Lopressor) 50 mg 1X ONCE PO ; Start 02/27/20 at 14:00; Stop 02/27/20 at 14:01; Status DC Amlodipine Besylate (Norvasc) 10 mg DAILY PO Last administered on 03/03/20at 08:24; Start 02/28/20 at 09:00 Warfarin Sodium (Coumadin) 6 mg 1X WARF ONCE PO Last administered on 02/27/20at 15:09; Start 02/27/20 at 16:00; Stop 02/27/20 at 16:01; Status DC Lisinopril (Prinivil) 20 mg DAILY PO Last administered on 02/29/20at 08:30; Start 02/28/20 at 09:00; Stop 02/29/20 at 11:28; Status DC Enoxaparin Sodium (Lovenox 80mg Syringe) 80 mg Q12HR SQ Last administered on 03/02/20at 09:12; Start 02/28/20 at 12:15; Stop 03/02/20 at 15:58; Status DC Warfarin Sodium (Coumadin) 9 mg 1X WARF ONCE PO Last administered on 02/28/20at 17:16; Start 02/28/20 at 16:00; Stop 02/28/20 at 16:01; Status DC Warfarin Sodium (Coumadin) 9 mg 1X WARF ONCE PO Last administered on 02/29/20at 16:55; Start 02/29/20 at 16:00; Stop 02/29/20 at 16:01; Status DC Lisinopril (Prinivil) 40 mg DAILY PO Last administered on 03/03/20at 08:24; Start 03/01/20 at 09:00 Lisinopril (Prinivil) 20 mg 1X ONCE PO Last administered on 02/29/20at 14:42; Start 02/29/20 at 12:30; Stop 02/29/20 at 12:31; Status DC Hydralazine HCl (Apresoline) 100 mg TID PO Last administered on 03/03/20at 08:21; Start 03/01/20 at 14:00 Warfarin Sodium (Coumadin) 9 mg 1X WARF ONCE PO Last administered on 03/01/20at 17:59; Start 03/01/20 at 16:00; Stop 03/01/20 at 16:01; Status DC Isosorbide Mononitrate (Imdur) 30 mg DAILY PO Last administered on 03/03/20at 08:22; Start 03/02/20 at 15:00 Warfarin Sodium (Coumadin) 7.5 mg 1X WARF ONCE PO Last administered on 03/02/20at 16:06; Start 03/02/20 at 16:00; Stop 03/02/20 at 16:01; Status DC Ondansetron HCl (Zofran) 4 mg 1X ONCE IM Last administered on 03/02/20at 16:07; Start 03/02/20 at 16:15; Stop 03/02/20 at 16:16; Status DC Active Scripts Active Atorvastatin Calcium 20 Mg Tablet 20 Mg PO QHS 30 Days Lisinopril 10 Mg Tablet 10 Mg PO DAILY 30 Days Tylenol (Acetaminophen) 325 Mg Tablet 650 Mg PO PRN Q6HRS PRN 30 Days Coumadin (Warfarin Sodium) 3 Mg Tablet 6 Mg PO DAILY16 30 Days Diltiazem 24HR Cd (Diltiazem Hcl) 300 Mg Cap.er.24h 300 Mg PO DAILY 30 Days Lanoxin (Digoxin) 125 Mcg Tablet 125 Mcg PO DAILY 30 Days [Albuterol Sulfate] 2.5 MG/3 ML Nebu 2.5 Mg NEB PRN Q4HRS PRN Reported Ventolin Hfa Inhaler (Albuterol Sulfate) 18 Gm Hfa.aer.ad 2 Puff INH Q4HRS Combivent Respimat Inhal (Ipratropium/Albuterol Sulfate) 4 Gm Aer.w.adap 2 Inh IH QID Loratadine 10 Mg Tablet 10 Mg PO DAILY Loperamide (Loperamide Hcl) 2 Mg Tablet 2 Mg PO PRN Q4HRS PRN Furosemide 40 Mg Tablet 40 Mg PO DAILY Metoprolol Tartrate 50 Mg Tablet 75 Mg PO BID Warfarin Sodium 1 Mg Tablet 0.5 Mg PO DAILY Hydralazine Hcl 25 Mg Tablet 1 Tab PO TID Wellbutrin Sr (Bupropion Hcl) 150 Mg Tablet.er 150 Mg PO DAILY Novolog (Insulin Aspart) 100 Unit/1 Ml Cartridge 15 Unit SQ TID Aspirin Ec (Aspirin) 81 Mg Tablet.dr 1 Tab PO DAILY Fluticasone Propionate Nasal Orestes (Fluticasone Propionate) 16 Gm Orestes.susp 2 Orestes NS DAILY LAST DOSE GIVEN: DATE: 10-13-15 TIME: 9 am NEXT DOSE DUE: DATE: 10-14-15 TIME: 9 am Vitamin D2 (Ergocalciferol (Vitamin D2)) 50,000 Unit Capsule 1 Cap PO QSA Vitals/I & O Vital Sign - Last 24 Hours 03/02/20 03/02/20 03/02/20 03/02/20 14:49 14:49 14:51 17:15 Temp 97.9 97.9 Pulse 80 80 87 87 Resp 18 B/P (MAP) 155/80 155/80 126/60 (82) 126/60 Pulse Ox 94 O2 Delivery Nasal Cannula O2 Flow Rate 2.0 03/02/20 03/02/20 03/02/20 03/02/20 19:00 20:00 21:00 21:00 Temp 97.8 97.8 Pulse 69 80 87 Resp 20 B/P (MAP) 103/69 (80) 152/70 126/60 Pulse Ox 96 O2 Delivery Nasal Cannula Nasal Cannula O2 Flow Rate 2.0 2.0 03/02/20 03/03/20 03/03/20 03/03/20 23:00 00:00 03:00 07:00 Temp 97.0 96.9 98.0 97.0 96.9 98.0 Pulse 82 81 87 95 Resp 20 20 22 B/P (MAP) 129/65 (86) 129/56 158/68 (98) 158/95 (116) Pulse Ox 96 97 97 O2 Delivery Nasal Cannula Nasal Cannula Nasal Cannula O2 Flow Rate 2.0 2.0 2.0 03/03/20 03/03/20 03/03/20 03/03/20 08:21 08:22 08:22 08:24 Pulse 98 98 98 98 B/P (MAP) 158/95 158/95 158/95 158/95 03/03/20 03/03/20 08:24 11:00 Temp 97.9 97.9 Pulse 95 89 Resp 20 B/P (MAP) 158/95 138/85 (102) Pulse Ox 98 O2 Delivery Nasal Cannula O2 Flow Rate 2.0 Intake and Output 03/02/20 03/02/20 03/03/20 15:00 23:00 07:00 Intake Total 600 ml 300 ml Output Total 500 ml Balance 100 ml 300 ml Nutrition Consultation Dietary Evaluation: Recommendations by RD: Dietary education by RD, Increase Calorie Intake, Protein supplementation Comments: REC continue ADA/cardiac diet with glucerna changed from bid to tid Expected Outcomes/Goals: to meet >75% est nutrition and fluid needs- goal ongoing Malnutrition Findings: Food and Nutrition Intake (Mod: <75% est energy req 7days Weight Status: Morbidly Obese Fluid Accumulation (Non-Severe: Mild depletion SOCORRO RICKETTS MD March 03, 2020 12:16
[2020-03-03 15:19] VITALS: BP 128/65
--- NOTE | 2020-03-03 15:46 | NUR ---
Pharmacy Warfarin Dosing Note S: Pharmacy consulted to assist with anticoagulation therapy O: MICHAELA COOPER is a 74 year old F with Atrial Fibrillation LABS: Last INR: 2.8 Last HGB: 11.2 Last HCT: 35.4 Last PLT: 297 Last dose of 7.5 mg given on 03/02/20 at 1606 Vitamin K given: N Ongoing Drug Interactions: ASA A:INR of 2.8 is within desired range. Target range for this patient is: 2 - 3 P: Warfarin dose: 6 mg Today at 1600 Bridge Therapy: N/A Next INR due 03/04/20 Pharmacy anticoagulation service will continue to follow. ALYSSA KIRKPATRICK [facility], 03/03/20 [id number]
[2020-03-03] MEDS ORDERED: WARFARIN 3 MG TABLET. PO ONE (16:00)
[2020-03-03 16:48] LABS: BASE EXCESS ABG 8 mmol/L (-3-3); HCO3 ABG 34 mmol/L (21-28); PCO2 ABG 49 mmHg (35-46); PO2 ABG 62 mmHg (65-108); SAT O2 ABG 90 % (92-99)
[2020-03-03 16:50] LABS: FIO2 ABG 21
[2020-03-03 19:40] VITALS: BP 119/58
[2020-03-03] MEDS: ATORVASTATIN CALCIUM 20 MG TABLET PO SCH (21:07)
[2020-03-03] MEDS: LATANOPROST 0.005% OPHTH SOLUTION 2.5ML BOTTLE. OU SCH (21:07)
[2020-03-04 03:00] VITALS: BP 145/59
[2020-03-04 07:00] VITALS: BP 198/99
[2020-03-04 07:23] LABS: PROTHROMBIN TIME PATIENT 31.8 SEC (11.7-14.0)
[2020-03-04] MEDS: INSULIN LISPRO 300 UNITS/3 ML VIAL. SQ SCH ×3 (08:00→16:54)
[2020-03-04] MEDS: FLUTICASONE 50MCG/NASAL SPRAY 16GM BOTTLE. NS SCH (09:00)
[2020-03-04] MEDS: FUROSEMIDE 40 MG TABLET. PO SCH (09:05)
[2020-03-04] MEDS: ZINC SULFATE 220 MG CAPSULE. PO SCH (09:05)
[2020-03-04] MEDS: CETIRIZINE HCL 10 MG TABLET. PO SCH (09:05)
[2020-03-04] MEDS: LACTOBACILLUS RHAMNOSUS GG 1 CAPSULE. PO SCH ×2 (09:05→22:13)
[2020-03-04] MEDS: amLODIPine BESYLATE 10 MG TABLET PO SCH (09:06)
[2020-03-04] MEDS: buPROPion SR 150 MG TABLET.SA PO SCH (09:06)
[2020-03-04] MEDS: LISINOPRIL 20 MG TABLET PO SCH (09:07)
[2020-03-04] MEDS: ISOSORBIDE MONONITRATE ER 30 MG TAB.ER.24H PO SCH (09:07)
[2020-03-04] MEDS: ASPIRIN ENTERIC COATED 81 MG TABLET.DR. PO SCH (09:07)
[2020-03-04] MEDS: METOPROLOL TART IMMED RELEASE 50 MG TABLET. PO SCH ×2 (09:08→23:48)
[2020-03-04 11:34] VITALS: BP 158/75
--- NOTE | 2020-03-04 12:35 | PDOC ---
CARDIO Progress Notes Date and Time Date of Service 03/04/2020 Time of Evaluation 1050 Subjective Subjective: No Chest Pain, No shortness of breath, No Palpitations Vitals Vitals Vital Signs Date Time Temp Pulse Resp B/P (MAP) Pulse Ox O2 Delivery O2 Flow Rate FiO2 03/04/20 11:34 98.3 83 18 158/75 (102) 95 Nasal Cannula 2.0 98.3 Weight Weight [ ] Input and Output Intake and Output Intake and Output 03/04/20 07:00 Intake Total 900 ml Balance 900 ml Intake Oral 900 ml # Voids 2 Laboratory Labs Laboratory Tests Test 03/03/20 12:32 03/03/20 16:47 03/03/20 17:04 03/04/20 03:20 Glucose (Fingerstick) 169 mg/dL (70-99) 139 mg/dL (70-99) O2 Saturation 90 % (92-99) Arterial Blood pH 7.45 (7.35-7.45) Arterial Blood pCO2 at Patient Temp 49 mmHg (35-46) Arterial Blood pO2 at Patient Temp 62 mmHg (65-108) Arterial Blood HCO3 34 mmol/L (21-28) Arterial Blood Base Excess 8 mmol/L (-3-3) FiO2 21 Prothrombin Time 31.8 SEC (11.7-14.0) Prothromb Time International Ratio 3.1 (0.8-1.1) Test 03/04/20 09:33 03/04/20 11:29 Glucose (Fingerstick) 153 mg/dL (70-99) 209 mg/dL (70-99) Microbiology Micro Microbiology 02/23/20 Blood Culture - Final, Complete NO GROWTH AFTER 5 DAYS Physical Exam Chest: Symmetric LUNGS: Other (diminished) Heart: irregularly irregular (AFIB rate controlled) Extremities: No Edema Neurology: alert, oriented, follow commands Assessment Assessment 1. Dizziness, nausea/vomiting: none further. notable for possible right cerebellar mass, awaiting neurosurgery input 2. Hypertensive urgency; labile episodes but better 3. Acute on chronic diastolic CHF; Recent echo with preserved LV systolic function, compensated 4. PAFIB vs chronic: AFIB rate controlled no further bradycardia since removal of dig and cardizem. 5. Hyperlipidemia; statin therapy 6. Diabetes, II 7. Recent COVID + with associated COPD; unknown date Recommendations 1. No further Dig and cardizem. Continue metoprolol. Coumadin for stroke prevention INR 3.1 2. Continue current BP regimen including norvasc, hydralazine, lisinopril.and lasix. Increase imdur if BP remains labile. 3. Consider outpatient cardioversion once fully recovered from covid. 4. Supportive care. Follow up in 4-6 weeks 5. Will need O2 upon DC. May DC to SNU per cardiac standpoint. IVETTE COREA APRN March 04, 2020 12:35
[2020-03-04 15:15] VITALS: BP 108/62
[2020-03-04] MEDS ORDERED: WARFARIN 3 MG TABLET. PO ONE (16:00)
--- NOTE | 2020-03-04 17:42 | NUR ---
Pharmacy Warfarin Dosing Note S:Pharmacy consulted to assist with anticoagulation therapy started with target INR: 2 -3 O:MICHAELA COOPER is a 74 year old F with Atrial Fibrillation LABS: Last INR: 3.1 Last HGB: 11.2 Last HCT: 35.4 Last PLT: 297 Last dose of 6 mg given on 03/03/20 at 1606 Previous Regimen: Vitamin K given: N Drug Interaction Changes: Ongoing Drug Interactions: ASA A:INR of 3.1 is above desired range. Target range for this patient is: 2 -3 P: Warfarin dose: 3 mg Today at 1600 Bridge Therapy: Enoxaparin 80 mg q12h Next INR due in am Pharmacy anticoagulation service will continue to follow. LANEY GOMEZ Petey, 03/04/20 [id number]
[2020-03-04 19:00] VITALS: BP 132/60
--- NOTE | 2020-03-04 19:16 | PDOC ---
PROGRESS NOTES Chief Complaint Chief Complaint A/P: Coronavirus infection Cough - with shortness of breath. Secondary to acute COPD exacerbation. Continue with IV steroids, nebs Diarrhea - will monitor, psyllium HTN - cont meds Hyperlipidemia - cont statin AFIB - on BB and coumadin, will continue, monitor INR CHF - unknown if ischemic cardiomyopathy, seems compensated currently Acute exacerbation of COPD - as above Depression - cont meds DM2 - basal bolus plus insulin while inpatient Visual blurring - likely glaucoma, difficult to test pressure here, currently on lananoprost (prostaglandin) daily, seems to have improved her vision but not recovered completely. Will need outpatient formal ophtalmological evaluation once she recovers from her covid 19 infection. 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 History of Present Illness History of Present Illness Ms Yang is a 74 yo F resident of [facility] w/ PMHx HTN, Hyperlipidemia, AFIB, valvular insufficiency, CHF, cardiomyopathy, COPD, Depression, DM2 who p/w cough, shortness of breath, diarrhea for the last 3-4 days. was recently tested for COVID-19 and was positive. Now, she has nausea, vomiting, and diarrhea. She has some associated dizziness. This has been occurring off and on for a few days, worse with moving, better with sitting still. She gets fatigued easily. Her dizziness worsens with change in position. She has underlying COPD, but states her shortness of breath is worse. While in the ER, she is noted to have a low-grade temperature of 100.5. She also has a mild white count elevation 13K. Chest x-ray is showing a possible atypical pneumonia. Was called for admission for further treatment In ED noted in afib, normal troponin. CXR with no acute findings. BNP 1212, K 5.2, Cr 1.1, glucose 173. Admitted for further care of Hypertensive urgency. Chest x-ray showed bilateral diffuse interstitial infiltrate and cardiomegaly. The patient received Rocephin and azithromycin 1 dose each from the ER. 02/24: States her breathing is okay, although she is normally not on oxygen. She is requiring 3 L of oxygen. Denies now any nausea, vomiting, or diarrhea which she has had, she says. Denies any abdominal pain, urinary symptoms, headache, or visual symptoms. 02/25: She is complaining blurred vision in her right eye today. No focal neurologic deficits otherwise. She lost IV access, has been converted to p.o. antibiotics and p.o. antihypertensives. 02/26: Overnight bradycardic, metoprolol had been increased to 75 mg, now reduced to 25 mg twice daily, still has Cardizem 300 mg daily. Lost IV access. SBP 198 today. HR in the 80s. Still feels very weak. 02/27: BP better controlled. On amlodipine 10 mg, lisinopril 20 mg, metoprolol. Still hypoxic still very weak still with some right eye blurring. She says she feels terrible and tired. 02/28: Overnight no events. Afebrile BP better controlled. Still hypoxic. Still with blurred vision in her right eye. Still dizzy and nauseated. 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 Neuro consult. 03/01: Overnight no events. Afebrile. BP controlled. Still hypoxic. Uncoordination and right visual blurring persist. CT results concerning for possible right cerebellar mass and left basal ganglia infarct. 03/02: Neurology oracle drm consultant recommendations greatly appreciated. Continue with current treatment plan in light of his slow improvement, holding off on doing MRI given the stability of her clinical picture. 03/03: Patient from the neurosurgical standpoint of view according to nursing staff is okay to be dismissed despite not having an MRI which can be done in the outpatient setting, patient seems to be not progressing much we will continue to monitor for the next 24 hours 03/04: Patient overall stable, contacted my CM regarding nursing staff concerns about patient's dizziness. we will observe for 24 hours. Neuro oracle drm consultant should be back in the am hopefully will discharge soon Plan: Will add lovenox, suptherapeutic INR. Monitor BP Rehab modalities Formal visual examination, no clear signs of increased ocular pressure, Vitals Vitals Vital Signs Date Time Temp Pulse Resp B/P (MAP) Pulse Ox O2 Delivery O2 Flow Rate FiO2 03/04/20 15:15 98.0 79 16 108/62 (77) 99 Nasal Cannula 3.0 98.0 Physical Exam Physical Exam GENERAL: Alert, oriented female, not in any distress. Coop HEENT: Both pupils are round and reacting. No conjunctival lesion, no lesion in the mouth. NECK: Supple, no JVP, no lymphadenopathy. LUNGS: Clear. HEART: S1, S2 regular. ABDOMEN: Benign. EXTREMITIES: No edema or cyanosis. SKIN: Unremarkable. NEUROLOGIC: The patient is alert, awake, and appropriate. No focal neurologic deficit. Lungs: Clear Labs LABS Laboratory Tests Test 03/04/20 03:20 03/04/20 09:33 03/04/20 11:29 03/04/20 16:49 Prothrombin Time 31.8 SEC (11.7-14.0) Prothromb Time International Ratio 3.1 (0.8-1.1) Glucose (Fingerstick) 153 mg/dL (70-99) 209 mg/dL (70-99) 173 mg/dL (70-99) Assessment and Plan Assessmemt and Plan Problems Medical Problems: (1) COVID-19 Status: Acute (2) Hypertensive urgency Status: Acute (3) Pneumonia Status: Acute (4) Vertigo Status: Acute Comment Review of Relevant I have reviewed the following items raman (where applicable) has been applied. Labs Laboratory Tests Test 03/02/20 21:04 03/03/20 05:30 03/03/20 07:59 03/03/20 12:32 Glucose (Fingerstick) 158 mg/dL (70-99) 144 mg/dL (70-99) 169 mg/dL (70-99) Prothrombin Time 29.6 SEC (11.7-14.0) Prothromb Time International Ratio 2.8 (0.8-1.1) Test 03/03/20 16:47 03/03/20 17:04 03/04/20 03:20 03/04/20 09:33 O2 Saturation 90 % (92-99) Arterial Blood pH 7.45 (7.35-7.45) Arterial Blood pCO2 at Patient Temp 49 mmHg (35-46) Arterial Blood pO2 at Patient Temp 62 mmHg (65-108) Arterial Blood HCO3 34 mmol/L (21-28) Arterial Blood Base Excess 8 mmol/L (-3-3) FiO2 21 Glucose (Fingerstick) 139 mg/dL (70-99) 153 mg/dL (70-99) Prothrombin Time 31.8 SEC (11.7-14.0) Prothromb Time International Ratio 3.1 (0.8-1.1) Test 03/04/20 11:29 03/04/20 16:49 Glucose (Fingerstick) 209 mg/dL (70-99) 173 mg/dL (70-99) Laboratory Tests Test 03/04/20 03:20 03/04/20 09:33 03/04/20 11:29 03/04/20 16:49 Prothrombin Time 31.8 SEC (11.7-14.0) Prothromb Time International Ratio 3.1 (0.8-1.1) Glucose (Fingerstick) 153 mg/dL (70-99) 209 mg/dL (70-99) 173 mg/dL (70-99) Microbiology 02/23/20 Blood Culture - Final, Complete NO GROWTH AFTER 5 DAYS Medications Current Medications Ondansetron HCl (Zofran) 4 mg 1X ONCE IVP Last administered on 02/23/20at 19:43; Start 02/23/20 at 19:45; Stop 02/23/20 at 19:46; Status DC Meclizine HCl (Antivert) 25 mg 1X ONCE PO Last administered on 02/23/20at 19:44; Start 02/23/20 at 19:45; Stop 02/23/20 at 19:46; Status DC Sodium Chloride 1,000 ml @ 1,000 mls/hr Q1H IV Last administered on 02/23/20at 20:14; Start 02/23/20 at 19:28; Stop 02/23/20 at 20:27; Status DC Lorazepam (Ativan Inj) 1 mg 1X ONCE IVP Last administered on 02/23/20at 19:44; Start 02/23/20 at 19:45; Stop 02/23/20 at 19:46; Status DC Hydralazine HCl (Apresoline Inj) 10 mg 1X ONCE IVP Last administered on 02/23/20at 20:14; Start 02/23/20 at 20:00; Stop 02/23/20 at 20:03; Status DC Scopolamine (Transderm-Scop) 1 patch 1X ONCE TD Last administered on 02/23/20at 22:21; Start 02/23/20 at 22:30; Stop 02/23/20 at 22:31; Status DC Ceftriaxone Sodium (Rocephin) 1 gm 1X ONCE IVP Last administered on 02/23/20at 22:27; Start 02/23/20 at 22:30; Stop 02/23/20 at 22:31; Status DC Azithromycin (Zithromax) 500 mg 1X ONCE PO Last administered on 02/23/20at 22:26; Start 02/23/20 at 22:30; Stop 02/23/20 at 22:31; Status DC Hydralazine HCl (Apresoline Inj) 10 mg 1X ONCE IVP Last administered on 02/23/20at 23:12; Start 02/23/20 at 23:30; Stop 02/23/20 at 23:31; Status DC Ondansetron HCl (Zofran) 4 mg PRN Q8HRS PRN IV NAUSEA/VOMITING 1ST CHOICE; Start 02/23/20 at 23:00; Stop 02/24/20 at 22:59; Status DC Acetaminophen (Tylenol) 650 mg PRN Q4HRS PRN PO FEVER > 100.3'F; Start 02/23/20 at 23:00; Stop 02/24/20 at 12:22; Status DC Albuterol/ Ipratropium (Duoneb) 3 ml RTQID NEB ; Start 02/24/20 at 08:00; Stop 02/24/20 at 09:21; Status DC Albuterol/ Ipratropium (Duoneb) 3 ml 1X ONCE NEB ; Start 02/23/20 at 23:45; Stop 02/23/20 at 23:46; Status DC Clonidine HCl (Catapres) 0.2 mg 1X ONCE PO Last administered on 02/24/20at 00:47; Start 02/24/20 at 01:00; Stop 02/24/20 at 01:01; Status DC Albuterol/ Ipratropium (Duoneb) 3 ml PRN Q4HRS PRN NEB SHORTNESS OF BREATH; Start 02/24/20 at 09:30; Stop 02/25/20 at 09:29; Status DC Hydralazine HCl (Apresoline Inj) 10 mg PRN Q4HRS PRN IVP ELEVATED BP, SEE COMMENTS; Start 02/24/20 at 09:45; Stop 02/27/20 at 03:42; Status DC Piperacillin Sod/ Tazobactam Sod 3.375 gm/Sodium Chloride 50 ml @ 100 mls/hr Q 6HRS IV Last administered on 02/26/20at 05:53; Start 02/24/20 at 12:00; Stop 02/26/20 at 10:11; Status DC Linezolid/Dextrose 300 ml @ 300 mls/hr Q12HR IV Last administered on 02/26/20at 08:55; Start 02/24/20 at 11:00; Stop 02/26/20 at 10:11; Status DC Acetaminophen (Tylenol) 650 mg PRN Q6HRS PRN PO HEADACHE/TEMP Last administered on 03/02/20at 16:41; Start 02/24/20 at 12:15 Aspirin (Ecotrin) 81 mg DAILY PO Last administered on 03/04/20at 09:07; Start 02/25/20 at 09:00 Atorvastatin Calcium (Lipitor) 20 mg QHS PO Last administered on 03/03/20at 21:07; Start 02/24/20 at 21:00 Bupropion HCl (Wellbutrin Sr) 150 mg DAILY PO Last administered on 03/04/20at 09:06; Start 02/25/20 at 09:00 Digoxin (Lanoxin) 125 mcg DAILY PO ; Start 02/25/20 at 09:00; Stop 02/24/20 at 16:58; Status DC Diltiazem HCl (Cardizem 24hr Cd) 300 mg DAILY PO ; Start 02/25/20 at 09:00; Stop 02/24/20 at 16:58; Status DC Ergocalciferol (Vitamin D2) 50,000 unit QSA PO Last administered on 02/29/20at 16:54; Start 02/29/20 at 16:00 Fluticasone Propionate (Flonase) 2 spray DAILY NS Last administered on 03/04/20at 09:00; Start 02/25/20 at 09:00 Furosemide (Lasix) 40 mg DAILY PO Last administered on 03/04/20at 09:05; Start 02/25/20 at 09:00 Hydralazine HCl (Apresoline) 25 mg TID PO Last administered on 02/26/20at 08:56; Start 02/24/20 at 14:00; Stop 02/26/20 at 11:53; Status DC Lisinopril (Prinivil) 10 mg DAILY PO ; Start 02/25/20 at 09:00; Stop 02/24/20 at 16:58; Status DC Metoprolol Tartrate (Lopressor) 75 mg BID PO Last administered on 02/26/20at 08:56; Start 02/24/20 at 21:00; Stop 02/26/20 at 16:25; Status DC Warfarin Sodium (Coumadin) 0.5 mg DAILY PO ; Start 02/25/20 at 09:00; Stop 02/24/20 at 13:04; Status DC Warfarin Sodium (Coumadin) 6 mg DAILY16 PO ; Start 02/24/20 at 16:00; Status UNV Insulin Human Lispro (HumaLOG) 15 units TIDWMEALS SQ Last administered on 03/04/20at 16:54; Start 02/24/20 at 17:00 Loperamide HCl (Imodium) 2 mg PRN Q15MIN PRN PO DIARRHEA; Start 02/24/20 at 12:45 Cetirizine HCl (ZyrTEC) 10 mg DAILY PO Last administered on 03/04/20at 09:05; Start 02/25/20 at 09:00 Warfarin Sodium (Coumadin Per Pharmacy) 1 each PRN DAILY PRN MC SEE COMMENTS Last administered on 03/04/20at 11:10; Start 02/24/20 at 12:45 Warfarin Sodium (Coumadin) 4 mg 1X WARF ONCE PO Last administered on 02/24/20at 17:27; Start 02/24/20 at 16:00; Stop 02/24/20 at 16:01; Status DC Furosemide (Lasix) 40 mg 1X ONCE IVP Last administered on 02/24/20at 17:25; Start 02/24/20 at 17:00; Stop 02/24/20 at 17:01; Status DC Digoxin (Lanoxin) 125 mcg DAILY PO Last administered on 02/26/20at 08:57; Start 02/24/20 at 17:00; Stop 02/26/20 at 16:25; Status DC Diltiazem HCl (Cardizem 24hr Cd) 300 mg DAILY PO Last administered on 02/26/20at 08:57; Start 02/24/20 at 17:00; Stop 02/26/20 at 16:25; Status DC Lisinopril (Prinivil) 10 mg DAILY PO Last administered on 02/27/20at 09:02; Start 02/24/20 at 17:00; Stop 02/28/20 at 08:56; Status DC Ondansetron HCl (Zofran) 4 mg PRN Q6HRS PRN IVP NAUSEA/VOMITING Last administered on 02/25/20at 11:41; Start 02/25/20 at 11:30; Stop 02/27/20 at 03:42; Status DC Warfarin Sodium (Coumadin) 6 mg 1X WARF ONCE PO Last administered on 02/25/20at 17:21; Start 02/25/20 at 16:00; Stop 02/25/20 at 16:01; Status DC Lactobacillus Rhamnosus (Culturelle) 1 cap BID PO Last administered on 03/04/20at 09:05; Start 02/25/20 at 21:00 Amoxicillin/ Clavulanate Potassium (Augmentin 875/ 125mg) 1 tab BID PO Last administered on 03/01/20at 20:32; Start 02/26/20 at 21:00; Stop 03/01/20 at 21:59; Status DC Hydralazine HCl (Apresoline) 50 mg TID PO Last administered on 02/26/20at 13:34; Start 02/26/20 at 14:00; Stop 02/26/20 at 16:25; Status DC Zinc Sulfate (Orazinc) 220 mg DAILY PO Last administered on 03/04/20at 09:05; Start 02/27/20 at 09:00 Latanoprost (Xalatan) 1 drop QHS OU Last administered on 03/03/20at 21:07; Start 02/26/20 at 12:45 Diltiazem HCl (Cardizem 24hr Cd) 300 mg DAILYWLUN PO ; Start 02/27/20 at 12:00; Stop 02/28/20 at 08:56; Status DC Hydralazine HCl (Apresoline) 75 mg TID PO Last administered on 03/01/20at 09:14; Start 02/26/20 at 21:00; Stop 03/01/20 at 10:22; Status DC Metoprolol Tartrate (Lopressor) 50 mg BID PO Last administered on 03/04/20at 09:08; Start 02/27/20 at 21:00 Amlodipine Besylate (Norvasc) 10 mg DAILY ONCE PO ; Start 02/28/20 at 09:00; Stop 02/27/20 at 11:57; Status DC Nitroglycerin (Nitro-Bid Oint) 1 inch Q6HRS TP Last administered on 03/03/20at 12:16; Start 02/27/20 at 12:00; Stop 03/03/20 at 14:32; Status DC Amlodipine Besylate (Norvasc) 10 mg 1X ONCE PO Last administered on 02/27/20at 12:28; Start 02/27/20 at 12:00; Stop 02/27/20 at 12:01; Status DC Ondansetron HCl (Zofran Odt) 4 mg PRN Q6HRS PRN PO NAUSEA/VOMITING Last administered on 02/27/20at 15:08; Start 02/27/20 at 13:15 Prochlorperazine Edisylate (Compazine) 10 mg PRN Q6HRS PRN IM NAUSEA/VOMITING Last administered on 02/29/20at 18:55; Start 02/27/20 at 13:15 Metoprolol Tartrate (Lopressor) 50 mg 1X ONCE PO ; Start 02/27/20 at 14:00; St op 02/27/20 at 14:01; Status DC Amlodipine Besylate (Norvasc) 10 mg DAILY PO Last administered on 03/04/20at 09:06; Start 02/28/20 at 09:00 Warfarin Sodium (Coumadin) 6 mg 1X WARF ONCE PO Last administered on 02/27/20at 15:09; Start 02/27/20 at 16:00; Stop 02/27/20 at 16:01; Status DC Lisinopril (Prinivil) 20 mg DAILY PO Last administered on 02/29/20at 08:30; Start 02/28/20 at 09:00; Stop 02/29/20 at 11:28; Status DC Enoxaparin Sodium (Lovenox 80mg Syringe) 80 mg Q12HR SQ Last administered on 03/02/20at 09:12; Start 02/28/20 at 12:15; Stop 03/02/20 at 15:58; Status DC Warfarin Sodium (Coumadin) 9 mg 1X WARF ONCE PO Last administered on 02/28/20 17:16; Start 02/28/20 at 16:00; Stop 02/28/20 at 16:01; Status DC Warfarin Sodium (Coumadin) 9 mg 1X WARF ONCE PO Last administered on 02/29/20at 16:55; Start 02/29/20 at 16:00; Stop 02/29/20 at 16:01; Status DC Lisinopril (Prinivil) 40 mg DAILY PO Last administered on 03/04/20at 09:07; Start 03/01/20 at 09:00 Lisinopril (Prinivil) 20 mg 1X ONCE PO Last administered on 02/29/20at 14:42; Start 02/29/20 at 12:30; Stop 02/29/20 at 12:31; Status DC Hydralazine HCl (Apresoline) 100 mg TID PO Last administered on 03/04/20at 12:11; Start 03/01/20 at 14:00 Warfarin Sodium (Coumadin) 9 mg 1X WARF ONCE PO Last administered on 03/01/20at 17:59; Start 03/01/20 at 16:00; Stop 03/01/20 at 16:01; Status DC Isosorbide Mononitrate (Imdur) 30 mg DAILY PO Last administered on 03/04/20at 09:07; Start 03/02/20 at 15:00 Warfarin Sodium (Coumadin) 7.5 mg 1X WARF ONCE PO Last administered on 03/02/20at 16:06; Start 03/02/20 at 16:00; Stop 03/02/20 at 16:01; Status DC Ondansetron HCl (Zofran) 4 mg 1X ONCE IM Last administered on 03/02/20at 16:07; Start 03/02/20 at 16:15; Stop 03/02/20 at 16:16; Status DC Warfarin Sodium (Coumadin) 6 mg 1X WARF ONCE PO Last administered on 03/03/20at 16:35; Start 03/03/20 at 16:00; Stop 03/03/20 at 16:01; Status DC Warfarin Sodium (Coumadin) 3 mg 1X WARF ONCE PO Last administered on 03/04/20at 16:54; Start 03/04/20 at 16:00; Stop 03/04/20 at 16:01; Status DC Active Scripts Active Atorvastatin Calcium 20 Mg Tablet 20 Mg PO QHS 30 Days Lisinopril 10 Mg Tablet 10 Mg PO DAILY 30 Days Tylenol (Acetaminophen) 325 Mg Tablet 650 Mg PO PRN Q6HRS PRN 30 Days Coumadin (Warfarin Sodium) 3 Mg Tablet 6 Mg PO DAILY16 30 Days Diltiazem 24HR Cd (Diltiazem Hcl) 300 Mg Cap.er.24h 300 Mg PO DAILY 30 Days Lanoxin (Digoxin) 125 Mcg Tablet 125 Mcg PO DAILY 30 Days [Albuterol Sulfate] 2.5 MG/3 ML Nebu 2.5 Mg NEB PRN Q4HRS PRN Reported Ventolin Hfa Inhaler (Albuterol Sulfate) 18 Gm Hfa.aer.ad 2 Puff INH Q4HRS Combivent Respimat Inhal (Ipratropium/Albuterol Sulfate) 4 Gm Aer.w.adap 2 Inh IH QID Loratadine 10 Mg Tablet 10 Mg PO DAILY Loperamide (Loperamide Hcl) 2 Mg Tablet 2 Mg PO PRN Q4HRS PRN Furosemide 40 Mg Tablet 40 Mg PO DAILY Metoprolol Tartrate 50 Mg Tablet 75 Mg PO BID Warfarin Sodium 1 Mg Tablet 0.5 Mg PO DAILY Hydralazine Hcl 25 Mg Tablet 1 Tab PO TID Wellbutrin Sr (Bupropion Hcl) 150 Mg Tablet.er 150 Mg PO DAILY Novolog (Insulin Aspart) 100 Unit/1 Ml Cartridge 15 Unit SQ TID Aspirin Ec (Aspirin) 81 Mg Tablet.dr 1 Tab PO DAILY Fluticasone Propionate Nasal Friendship (Fluticasone Propionate) 16 Gm Friendship.susp 2 Friendship NS DAILY LAST DOSE GIVEN: DATE: 10-13-15 TIME: 9 am NEXT DOSE DUE: DATE: 10-14-15 TIME: 9 am Vitamin D2 (Ergocalciferol (Vitamin D2)) 50,000 Unit Capsule 1 Cap PO QSA Vitals/I & O Vital Sign - Last 24 Hours 03/03/20 03/03/20 03/03/20 03/03/20 19:40 20:00 21:06 21:06 Temp 98.3 98.3 Pulse 93 Resp 18 B/P (MAP) 119/58 (78) 128/65 128/65 O2 Delivery Nasal Cannula Nasal Cannula O2 Flow Rate 2.0 03/03/20 03/04/20 03/04/20 03/04/20 23:00 03:00 07:00 08:00 Temp 98.6 97.1 97.9 98.6 97.1 97.9 Pulse 93 86 84 Resp 16 18 18 B/P (MAP) 145/59 (87) 198/99 (132) Pulse Ox 97 96 98 O2 Delivery Nasal Cannula Nasal Cannula Nasal Cannula Nasal Cannula O2 Flow Rate 2.0 4.0 4.0 03/04/20 03/04/20 03/04/20 03/04/20 09:06 09:06 09:07 09:07 Pulse 84 84 84 84 B/P (MAP) 198/99 198/99 198/99 198/99 03/04/20 03/04/20 03/04/20 03/04/20 09:08 11:34 12:11 15:15 Temp 98.3 98.0 98.3 98.0 Pulse 84 83 83 79 Resp 18 16 B/P (MAP) 198/99 158/75 (102) 158/75 108/62 (77) Pulse Ox 95 99 O2 Delivery Nasal Cannula Nasal Cannula O2 Flow Rate 2.0 3.0 Intake and Output 03/03/20 03/03/20 03/04/20 15:00 23:00 07:00 Intake Total 600 ml 300 ml Balance 600 ml 300 ml Nutrition Consultation Dietary Evaluation: Recommendations by RD: Dietary education by RD, Increase Calorie Intake, Protein supplementation Comments: REC continue ADA/cardiac diet with glucerna changed from bid to tid Expected Outcomes/Goals: to meet >75% est nutrition and fluid needs- goal ongoing Malnutrition Findings: Food and Nutrition Intake (Mod: <75% est energy req 7days Weight Status: Morbidly Obese Fluid Accumulation (Non-Severe: Mild depletion SOCORRO RICKETTS MD March 04, 2020 19:16
[2020-03-04] MEDS: LATANOPROST 0.005% OPHTH SOLUTION 2.5ML BOTTLE. OU SCH (22:14)
[2020-03-04] MEDS: ATORVASTATIN CALCIUM 20 MG TABLET PO SCH (22:14)
[2020-03-04 23:00] VITALS: BP 120/49
[2020-03-05 03:30] VITALS: BP 134/65
[2020-03-05 07:00] VITALS: BP 162/79
[2020-03-05] MEDS: FLUTICASONE 50MCG/NASAL SPRAY 16GM BOTTLE. NS SCH (09:00)
[2020-03-05] MEDS: ASPIRIN ENTERIC COATED 81 MG TABLET.DR. PO SCH (09:01)
[2020-03-05] MEDS: buPROPion SR 150 MG TABLET.SA PO SCH (09:01)
[2020-03-05] MEDS: FUROSEMIDE 40 MG TABLET. PO SCH (09:04)
[2020-03-05] MEDS: CETIRIZINE HCL 10 MG TABLET. PO SCH (09:04)
[2020-03-05] MEDS: ISOSORBIDE MONONITRATE ER 30 MG TAB.ER.24H PO SCH (09:04)
[2020-03-05] MEDS: METOPROLOL TART IMMED RELEASE 50 MG TABLET. PO SCH ×2 (09:05→22:57)
[2020-03-05] MEDS: amLODIPine BESYLATE 10 MG TABLET PO SCH (09:05)
[2020-03-05] MEDS: LISINOPRIL 20 MG TABLET PO SCH (09:05)
[2020-03-05] MEDS: ZINC SULFATE 220 MG CAPSULE. PO SCH (09:05)
[2020-03-05] MEDS: INSULIN LISPRO 300 UNITS/3 ML VIAL. SQ SCH ×3 (09:06→17:02)
[2020-03-05] MEDS: LACTOBACILLUS RHAMNOSUS GG 1 CAPSULE. PO SCH ×2 (09:06→22:56)
[2020-03-05 11:00] VITALS: BP 157/82
--- NOTE | 2020-03-05 11:47 | PDOC ---
CARDIO Progress Notes Date and Time Date of Service 03/05/2020 Time of Evaluation 1220 Subjective Subjective: No Chest Pain, No shortness of breath, No Palpitations Vitals Vitals Vital Signs Date Time Temp Pulse Resp B/P (MAP) Pulse Ox O2 Delivery O2 Flow Rate FiO2 03/05/20 11:00 98.2 82 16 157/82 (107) 98 Nasal Cannula 3.0 98.2 Weight Weight [ ] Input and Output Intake and Output Intake and Output 03/05/20 07:00 Intake Total 50 ml Balance 50 ml Intake Oral 50 ml Laboratory Labs Laboratory Tests Test 03/04/20 16:49 03/04/20 21:20 03/05/20 05:00 03/05/20 08:41 Glucose (Fingerstick) 173 mg/dL (70-99) 87 mg/dL (70-99) 136 mg/dL (70-99) Prothrombin Time 30.0 SEC (11.7-14.0) Prothromb Time International Ratio 2.9 (0.8-1.1) Microbiology Micro Microbiology 02/23/20 Blood Culture - Final, Complete NO GROWTH AFTER 5 DAYS Physical Exam Chest: Symmetric LUNGS: Other (diminished) Heart: irregularly irregular (AFIB rate controlled) Extremities: No Edema Neurology: alert, oriented, follow commands Assessment Assessment 1. Dizziness, nausea/vomiting: none further. notable for possible right cerebellar mass, awaiting neurosurgery input 2. Hypertensive urgency; labile episodes but better 3. Acute on chronic diastolic CHF; Recent echo with preserved LV systolic function, compensated 4. PAFIB vs chronic: AFIB rate controlled no further bradycardia since removal of dig and cardizem. 5. Hyperlipidemia; statin therapy 6. Diabetes, II 7. Recent COVID + with associated COPD; unknown date Recommendations 1. No further Dig and cardizem. Continue metoprolol. Coumadin for stroke prevention INR 2.9 2. Continue current BP regimen including norvasc, hydralazine, lisinopril.and lasix. Increase imdur if BP remains labile. 3. Consider outpatient cardioversion once fully recovered from covid. 4. Supportive care. Follow up in 4-6 weeks 5. Will need O2 upon DC. May DC to SNU per cardiac standpoint. IVETTE COREA APRN March 05, 2020 11:47
[2020-03-05 15:15] VITALS: BP 122/48
--- NOTE | 2020-03-05 15:58 | PDOC ---
PROGRESS NOTES Chief Complaint Chief Complaint A/P: Coronavirus infection Cough - with shortness of breath. Secondary to acute COPD exacerbation. Improved Diarrhea - will monitor, psyllium HTN - cont meds Hyperlipidemia - cont statin AFIB - on BB and coumadin, will continue, monitor INR CHF - unknown if ischemic cardiomyopathy, seems compensated currently Acute exacerbation of COPD - as above Depression - cont meds DM2 - basal bolus plus insulin while inpatient Visual blurring - likely glaucoma, difficult to test pressure here, currently on lananoprost (prostaglandin) daily, seems to have improved her vision but not recovered completely. Will need outpatient formal ophtalmological evaluation once she recovers from her covid 19 infection. 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 was recently tested for COVID-19 and was positive. Now, she has nausea, vomiting, and diarrhea. She has some associated dizziness. This has been occurring off and on for a few days, worse with moving, better with sitting still. She gets fatigued easily. Her dizziness worsens with change in position. She has underlying COPD, but states her shortness of breath is worse. While in the ER, she is noted to have a low-grade temperature of 100.5. She also has a mild white count elevation 13K. Chest x-ray is showing a possible atypical pneumonia. Was called for admission for further treatment In ED noted in afib, normal troponin. CXR with no acute findings. BNP 1212, K 5.2, Cr 1.1, glucose 173. Admitted for further care of Hypertensive urgency. Chest x-ray showed bilateral diffuse interstitial infiltrate and cardiomegaly. The patient received Rocephin and azithromycin 1 dose each from the ER. 02/24: States her breathing is okay, although she is normally not on oxygen. She is requiring 3 L of oxygen. Denies now any nausea, vomiting, or diarrhea which she has had, she says. Denies any abdominal pain, urinary symptoms, headache, or visual symptoms. 02/25: She is complaining blurred vision in her right eye today. No focal neurologic deficits otherwise. She lost IV access, has been converted to p.o. antibiotics and p.o. antihypertensives. 02/26: Overnight bradycardic, metoprolol had been increased to 75 mg, now reduced to 25 mg twice daily, still has Cardizem 300 mg daily. Lost IV access. SBP 198 today. HR in the 80s. Still feels very weak. 02/27: BP better controlled. On amlodipine 10 mg, lisinopril 20 mg, metoprolol. Still hypoxic still very weak still with some right eye blurring. She says she feels terrible and tired. 02/28: Overnight no events. Afebrile BP better controlled. Still hypoxic. Still with blurred vision in her right eye. Still dizzy and nauseated. 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 Neuro consult. 03/01: Overnight no events. Afebrile. BP controlled. Still hypoxic. Uncoordination and right visual blurring persist. CT results concerning for possible right cerebellar mass and left basal ganglia infarct. 03/02: Neurology wireless sales consultant recommendations greatly appreciated. Continue with current treatment plan in light of his slow improvement, holding off on doing MRI given the stability of her clinical picture. 03/03: Patient from the neurosurgical standpoint of view according to nursing staff is okay to be dismissed despite not having an MRI which can be done in the outpatient setting, patient seems to be not progressing much we will continue to monitor for the next 24 hours 03/04: Patient overall stable, contacted my CM regarding nursing staff concerns about patient's dizziness. we will observe for 24 hours. Neuro wireless sales consultant should be back in the am hopefully will discharge soon 03/05: Patient continues to be quite dizzy, the patient lives in assisted living facility and physical therapy has recommended inpatient rehab for her discharge. We have requested 80 from case management in order to manage her disposition at this point. Plan: Will add lovenox, suptherapeutic INR. Monitor BP Rehab modalities Formal visual examination, no clear signs of increased ocular pressure, Vitals Vitals Vital Signs Date Time Temp Pulse Resp B/P (MAP) Pulse Ox O2 Delivery O2 Flow Rate FiO2 03/05/20 15:15 98.3 77 15 122/48 (72) 98 Nasal Cannula 3.0 98.3 Physical Exam Physical Exam GENERAL: Alert, oriented female, not in any distress. Coop HEENT: Both pupils are round and reacting. No conjunctival lesion, no lesion in the mouth. NECK: Supple, no JVP, no lymphadenopathy. LUNGS: Clear. HEART: S1, S2 regular. ABDOMEN: Benign. EXTREMITIES: No edema or cyanosis. SKIN: Unremarkable. NEUROLOGIC: The patient is alert, awake, and appropriate. No focal neurologic deficit. Lungs: Clear Labs LABS Laboratory Tests Test 03/04/20 16:49 03/04/20 21:20 03/05/20 05:00 03/05/20 08:41 Glucose (Fingerstick) 173 mg/dL (70-99) 87 mg/dL (70-99) 136 mg/dL (70-99) Prothrombin Time 30.0 SEC (11.7-14.0) Prothromb Time International Ratio 2.9 (0.8-1.1) Test 03/05/20 11:52 Glucose (Fingerstick) 165 mg/dL (70-99) Assessment and Plan Assessmemt and Plan Problems Medical Problems: (1) COVID-19 Status: Acute (2) Hypertensive urgency Status: Acute (3) Pneumonia Status: Acute (4) Vertigo Status: Acute Comment Review of Relevant I have reviewed the following items raman (where applicable) has been applied. Labs Laboratory Tests Test 03/03/20 16:47 03/03/20 17:04 03/04/20 03:20 03/04/20 09:33 O2 Saturation 90 % (92-99) Arterial Blood pH 7.45 (7.35-7.45) Arterial Blood pCO2 at Patient Temp 49 mmHg (35-46) Arterial Blood pO2 at Patient Temp 62 mmHg (65-108) Arterial Blood HCO3 34 mmol/L (21-28) Arterial Blood Base Excess 8 mmol/L (-3-3) FiO2 21 Glucose (Fingerstick) 139 mg/dL (70-99) 153 mg/dL (70-99) Prothrombin Time 31.8 SEC (11.7-14.0) Prothromb Time International Ratio 3.1 (0.8-1.1) Test 03/04/20 11:29 03/04/20 16:49 03/04/20 21:20 03/05/20 05:00 Glucose (Fingerstick) 209 mg/dL (70-99) 173 mg/dL (70-99) 87 mg/dL (70-99) Prothrombin Time 30.0 SEC (11.7-14.0) Prothromb Time International Ratio 2.9 (0.8-1.1) Test 03/05/20 08:41 03/05/20 11:52 Glucose (Fingerstick) 136 mg/dL (70-99) 165 mg/dL (70-99) Laboratory Tests Test 03/04/20 16:49 03/04/20 21:20 03/05/20 05:00 03/05/20 08:41 Glucose (Fingerstick) 173 mg/dL (70-99) 87 mg/dL (70-99) 136 mg/dL (70-99) Prothrombin Time 30.0 SEC (11.7-14.0) Prothromb Time International Ratio 2.9 (0.8-1.1) Test 03/05/20 11:52 Glucose (Fingerstick) 165 mg/dL (70-99) Microbiology 02/23/20 Blood Culture - Final, Complete NO GROWTH AFTER 5 DAYS Medications Current Medications Ondansetron HCl (Zofran) 4 mg 1X ONCE IVP Last administered on 02/23/20at 19:43; Start 02/23/20 at 19:45; Stop 02/23/20 at 19:46; Status DC Meclizine HCl (Antivert) 25 mg 1X ONCE PO Last administered on 02/23/20at 19:44; Start 02/23/20 at 19:45; Stop 02/23/20 at 19:46; Status DC Sodium Chloride 1,000 ml @ 1,000 mls/hr Q1H IV Last administered on 02/23/20at 20:14; Start 02/23/20 at 19:28; Stop 02/23/20 at 20:27; Status DC Lorazepam (Ativan Inj) 1 mg 1X ONCE IVP Last administered on 02/23/20at 19:44; Start 02/23/20 at 19:45; Stop 02/23/20 at 19:46; Status DC Hydralazine HCl (Apresoline Inj) 10 mg 1X ONCE IVP Last administered on 02/23/20at 20:14; Start 02/23/20 at 20:00; Stop 02/23/20 at 20:03; Status DC Scopolamine (Transderm-Scop) 1 patch 1X ONCE TD Last administered on 02/23/20at 22:21; Start 02/23/20 at 22:30; Stop 02/23/20 at 22:31; Status DC Ceftriaxone Sodium (Rocephin) 1 gm 1X ONCE IVP Last administered on 02/23/20at 22:27; Start 02/23/20 at 22:30; Stop 02/23/20 at 22:31; Status DC Azithromycin (Zithromax) 500 mg 1X ONCE PO Last administered on 02/23/20at 22:26; Start 02/23/20 at 22:30; Stop 02/23/20 at 22:31; Status DC Hydralazine HCl (Apresoline Inj) 10 mg 1X ONCE IVP Last administered on 02/23/20at 23:12; Start 02/23/20 at 23:30; Stop 02/23/20 at 23:31; Status DC Ondansetron HCl (Zofran) 4 mg PRN Q8HRS PRN IV NAUSEA/VOMITING 1ST CHOICE; Start 02/23/20 at 23:00; Stop 02/24/20 at 22:59; Status DC Acetaminophen (Tylenol) 650 mg PRN Q4HRS PRN PO FEVER > 100.3'F; Start 02/23/20 at 23:00; Stop 02/24/20 at 12:22; Status DC Albuterol/ Ipratropium (Duoneb) 3 ml RTQID NEB ; Start 02/24/20 at 08:00; Stop 02/24/20 at 09:21; Status DC Albuterol/ Ipratropium (Duoneb) 3 ml 1X ONCE NEB ; Start 02/23/20 at 23:45; Stop 02/23/20 at 23:46; Status DC Clonidine HCl (Catapres) 0.2 mg 1X ONCE PO Last administered on 02/24/20at 00:47; Start 02/24/20 at 01:00; Stop 02/24/20 at 01:01; Status DC Albuterol/ Ipratropium (Duoneb) 3 ml PRN Q4HRS PRN NEB SHORTNESS OF BREATH; Start 02/24/20 at 09:30; Stop 02/25/20 at 09:29; Status DC Hydralazine HCl (Apresoline Inj) 10 mg PRN Q4HRS PRN IVP ELEVATED BP, SEE COMMENTS; Start 02/24/20 at 09:45; Stop 02/27/20 at 03:42; Status DC Piperacillin Sod/ Tazobactam Sod 3.375 gm/Sodium Chloride 50 ml @ 100 mls/hr Q6HRS IV Last administered on 02/26/20at 05:53; Start 02/24/20 at 12:00; Stop 02/26/20 at 10:11; Status DC Linezolid/Dextrose 300 ml @ 300 mls/hr Q12HR IV Last administered on 02/26/20at 08:55; Start 02/24/20 at 11:00; Stop 02/26/20 at 10:11; Status DC Acetaminophen (Tylenol) 650 mg PRN Q6HRS PRN PO HEADACHE/TEMP Last administered on 03/02/20at 16:41; Start 02/24/20 at 12:15 Aspirin (Ecotrin) 81 mg DAILY PO Last administered on 03/05/20at 09:01; Start 02/25/20 at 09:00 Atorvastatin Calcium (Lipitor) 20 mg QHS PO Last administered on 03/04/20at 22:14; Start 02/24/20 at 21:00 Bupropion HCl (Wellbutrin Sr) 150 mg DAILY PO Last administered on 03/05/20at 09:01; Start 02/25/20 at 09:00 Digoxin (Lanoxin) 125 mcg DAILY PO ; Start 02/25/20 at 09:00; Stop 02/24/20 at 16:58; Status DC Diltiazem HCl (Cardizem 24hr Cd) 300 mg DAILY PO ; Start 02/25/20 at 09:00; Stop 02/24/20 at 16:58; Status DC Ergocalciferol (Vitamin D2) 50,000 unit QSA PO Last administered on 02/29/20at 16:54; Start 02/29/20 at 16:00 Fluticasone Propionate (Flonase) 2 spray DAILY NS Last administered on 03/05/20at 09:00; Start 02/25/20 at 09:00 Furosemide (Lasix) 40 mg DAILY PO Last administered on 03/05/20at 09:04; Start 02/25/20 at 09:00 Hydralazine HCl (Apresoline) 25 mg TID PO Last administered on 02/26/20at 08:56; Start 02/24/20 at 14:00; Stop 02/26/20 at 11:53; Status DC Lisinopril (Prinivil) 10 mg DAILY PO ; Start 02/25/20 at 09:00; Stop 02/24/20 at 16:58; Status DC Metoprolol Tartrate (Lopressor) 75 mg BID PO Last administered on 02/26/20at 08:56; Start 02/24/20 at 21:00; Stop 02/26/20 at 16:25; Status DC Warfarin Sodium (Coumadin) 0.5 mg DAILY PO ; Start 02/25/20 at 09:00; Stop 02/24/20 at 13:04; Status DC Warfarin Sodium (Coumadin) 6 mg DAILY16 PO ; Start 02/24/20 at 16:00; Status UNV Insulin Human Lispro (HumaLOG) 15 units TIDWMEALS SQ Last administered on 03/05/20at 12:35; Start 02/24/20 at 17:00 Loperamide HCl (Imodium) 2 mg PRN Q15MIN PRN PO DIARRHEA; Start 02/24/20 at 12:45 Cetirizine HCl (ZyrTEC) 10 mg DAILY PO Last administered on 03/05/20at 09:04; Start 02/25/20 at 09:00 Warfarin Sodium (Coumadin Per Pharmacy) 1 each PRN DAILY PRN MC SEE COMMENTS Last administered on 03/04/20at 11:10; Start 02/24/20 at 12:45 Warfarin Sodium (Coumadin) 4 mg 1X WARF ONCE PO Last administered on 02/24/20at 17:27; Start 02/24/20 at 16:00; Stop 02/24/20 at 16:01; Status DC Furosemide (Lasix) 40 mg 1X ONCE IVP Last administered on 02/24/20at 17:25; Start 02/24/20 at 17:00; Stop 02/24/20 at 17:01; Status DC Digoxin (Lanoxin) 125 mcg DAILY PO Last administered on 02/26/20at 08:57; Start 02/24/20 at 17:00; Stop 02/26/20 at 16:25; Status DC Diltiazem HCl (Cardizem 24hr Cd) 300 mg DAILY PO Last administered on 02/26/20at 08:57; Start 02/24/20 at 17:00; Stop 02/26/20 at 16:25; Status DC Lisinopril (Prinivil) 10 mg DAILY PO Last administered on 02/27/20at 09:02; Start 02/24/20 at 17:00; Stop 02/28/20 at 08:56; Status DC Ondansetron HCl (Zofran) 4 mg PRN Q6HRS PRN IVP NAUSEA/VOMITING Last administered on 02/25/20at 11:41; Start 02/25/20 at 11:30; Stop 02/27/20 at 03 :42; Status DC Warfarin Sodium (Coumadin) 6 mg 1X WARF ONCE PO Last administered on 02/25/20at 17:21; Start 02/25/20 at 16:00; Stop 02/25/20 at 16:01; Status DC Lactobacillus Rhamnosus (Culturelle) 1 cap BID PO Last administered on 03/05/20at 09:06; Start 02/25/20 at 21:00 Amoxicillin/ Clavulanate Potassium (Augmentin 875/ 125mg) 1 tab BID PO Last administered on 03/01/20at 20:32; Start 02/26/20 at 21:00; Stop 03/01/20 at 21:59; Status DC Hydralazine HCl (Apresoline) 50 mg TID PO Last administered on 02/26/20at 13:34; Start 02/26/20 at 14:00; Stop 02/26/20 at 16:25; Status DC Zinc Sulfate (Orazinc) 220 mg DAILY PO Last administered on 03/05/20at 09:05; Start 02/27/20 at 09:00 Latanoprost (Xalatan) 1 drop QHS OU Last administered on 03/04/20at 22:14; St art 02/26/20 at 12:45 Diltiazem HCl (Cardizem 24hr Cd) 300 mg DAILYWLUN PO ; Start 02/27/20 at 12:00; Stop 02/28/20 at 08:56; Status DC Hydralazine HCl (Apresoline) 75 mg TID PO Last administered on 03/01/20at 09:14; Start 02/26/20 at 21:00; Stop 03/01/20 at 10:22; Status DC Metoprolol Tartrate (Lopressor) 50 mg BID PO Last administered on 03/05/20at 09:05; Start 02/27/20 at 21:00 Amlodipine Besylate (Norvasc) 10 mg DAILY ONCE PO ; Start 02/28/20 at 09:00; Stop 02/27/20 at 11:57; Status DC Nitroglycerin (Nitro-Bid Oint) 1 inch Q6HRS TP Last administered on 03/03/20at 12:16; Start 02/27/20 at 12:00; Stop 03/03/20 at 14:32; Status DC Amlodipine Besylate (Norvasc) 10 mg 1X ONCE PO Last administered on 02/27/20at 12:28; Start 02/27/20 at 12:00; Stop 02/27/20 at 12:01; Status DC Ondansetron HCl (Zofran Odt) 4 mg PRN Q6HRS PRN PO NAUSEA/VOMITING Last administered on 02/27/20at 15:08; Start 02/27/20 at 13:15 Prochlorperazine Edisylate (Compazine) 10 mg PRN Q6HRS PRN IM NAUSEA/VOMITING Last administered on 02/29/20at 18:55; Start 02/27/20 at 13:15 Metoprolol Tartrate (Lopressor) 50 mg 1X ONCE PO ; Start 02/27/20 at 14:00; Stop 02/27/20 at 14:01; Status DC Amlodipine Besylate (Norvasc) 10 mg DAILY PO Last administered on 03/05/20at 09:05; Start 02/28/20 at 09:00 Warfarin Sodium (Coumadin) 6 mg 1X WARF ONCE PO Last administered on 02/27/20at 15:09; Start 02/27/20 at 16:00; Stop 02/27/20 at 16:01; Status DC Lisinopril (Prinivil) 20 mg DAILY PO Last administered on 02/29/20at 08:30; Start 02/28/20 at 09:00; Stop 02/29/20 at 11:28; Status DC Enoxaparin Sodium (Lovenox 80mg Syringe) 80 mg Q12HR SQ Last administered on 03/02/20at 09:12; Start 02/28/20 at 12:15; Stop 03/02/20 at 15:58; Status DC Warfarin Sodium (Coumadin) 9 mg 1X WARF ONCE PO Last administered on 02/28/20at 17:16; Start 02/28/20 at 16:00; Stop 02/28/20 at 16:01; Status DC Warfarin Sodium (Coumadin) 9 mg 1X WARF ONCE PO Last administered on 02/29/20at 16:55; Start 02/29/20 at 16:00; Stop 02/29/20 at 16:01; Status DC Lisinopril (Prinivil) 40 mg DAILY PO Last administered on 03/05/20at 09:05; Start 03/01/20 at 09:00 Lisinopril (Prinivil) 20 mg 1X ONCE PO Last administered on 02/29/20at 14:42; Start 02/29/20 at 12:30; Stop 02/29/20 at 12:31; Status DC Hydralazine HCl (Apresoline) 100 mg TID PO Last administered on 03/05/20at 14:47; Start 03/01/20 at 14:00 Warfarin Sodium (Coumadin) 9 mg 1X WARF ONCE PO Last administered on 03/01/20at 17:59; Start 03/01/20 at 16:00; Stop 03/01/20 at 16:01; Status DC Isosorbide Mononitrate (Imdur) 30 mg DAILY PO Last administered on 03/05/20at 09:04; Start 03/02/20 at 15:00 Warfarin Sodium (Coumadin) 7.5 mg 1X WARF ONCE PO Last administered on 03/02/20at 16:06; Start 03/02/20 at 16:00; Stop 03/02/20 at 16:01; Status DC Ondansetron HCl (Zofran) 4 mg 1X ONCE IM Last administered on 03/02/20at 16:07; Start 03/02/20 at 16:15; Stop 03/02/20 at 16:16; Status DC Warfarin Sodium (Coumadin) 6 mg 1X WARF ONCE PO Last administered on 03/03/20at 16:35; Start 03/03/20 at 16:00; Stop 03/03/20 at 16:01; Status DC Warfarin Sodium (Coumadin) 3 mg 1X WARF ONCE PO Last administered on 03/04/20at 16:54; Start 03/04/20 at 16:00; Stop 03/04/20 at 16:01; Status DC Active Scripts Active Atorvastatin Calcium 20 Mg Tablet 20 Mg PO QHS 30 Days Lisinopril 10 Mg Tablet 10 Mg PO DAILY 30 Days Tylenol (Acetaminophen) 325 Mg Tablet 650 Mg PO PRN Q6HRS PRN 30 Days Coumadin (Warfarin Sodium) 3 Mg Tablet 6 Mg PO DAILY16 30 Days Diltiazem 24HR Cd (Diltiazem Hcl) 300 Mg Cap.er.24h 300 Mg PO DAILY 30 Days Lanoxin (Digoxin) 125 Mcg Tablet 125 Mcg PO DAILY 30 Days [Albuterol Sulfate] 2.5 MG/3 ML Nebu 2.5 Mg NEB PRN Q4HRS PRN Reported Ventolin Hfa Inhaler (Albuterol Sulfate) 18 Gm Hfa.aer.ad 2 Puff INH Q4HRS Combivent Respimat Inhal (Ipratropium/Albuterol Sulfate) 4 Gm Aer.w.adap 2 Inh IH QID Loratadine 10 Mg Tablet 10 Mg PO DAILY Loperamide (Loperamide Hcl) 2 Mg Tablet 2 Mg PO PRN Q4HRS PRN Furosemide 40 Mg Tablet 40 Mg PO DAILY Metoprolol Tartrate 50 Mg Tablet 75 Mg PO BID Warfarin Sodium 1 Mg Tablet 0.5 Mg PO DAILY Hydralazine Hcl 25 Mg Tablet 1 Tab PO TID Wellbutrin Sr (Bupropion Hcl) 150 Mg Tablet.er 150 Mg PO DAILY Novolog (Insulin Aspart) 100 Unit/1 Ml Cartridge 15 Unit SQ TID Aspirin Ec (Aspirin) 81 Mg Tablet.dr 1 Tab PO DAILY Fluticasone Propionate Nasal [place] (Fluticasone Propionate) 16 Gm [place].susp 2 [place] NS DAILY LAST DOSE GIVEN: DATE: 10-13-15 TIME: 9 am NEXT DOSE DUE: DATE: 10-14-15 TIME: 9 am Vitamin D2 (Ergocalciferol (Vitamin D2)) 50,000 Unit Capsule 1 Cap PO QSA Vitals/I & O Vital Sign - Last 24 Hours 03/04/20 03/04/20 03/04/20 03/04/20 19:00 20:00 23:00 23:48 Temp 97.4 97.6 97.4 97.6 Pulse 64 63 63 Resp 18 18 B/P (MAP) 132/60 (84) 120/49 (72) 120/49 Pulse Ox 98 99 O2 Delivery Nasal Cannula Nasal Cannula Nasal Cannula O2 Flow Rate 3.0 3.0 3.0 03/04/20 03/05/20 03/05/20 03/05/20 23:48 03:30 07:00 09:04 Temp 97.9 98.3 97.9 98.3 Pulse 63 88 80 80 Resp 18 17 B/P (MAP) 120/49 134/65 (88) 162/79 (106) 162/79 Pulse Ox 99 100 O2 Delivery Nasal Cannula Nasal Cannula O2 Flow Rate 3.0 3.0 03/05/20 03/05/20 03/05/20 03/05/20 09:05 09:05 09:05 09:05 Pulse 80 80 80 80 B/P (MAP) 162/79 162/79 162/79 162/79 03/05/20 03/05/20 03/05/20 11:00 14:47 15:15 Temp 98.2 98.3 98.2 98.3 Pulse 82 82 77 Resp 16 15 B/P (MAP) 157/82 (107) 157/82 122/48 (72) Pulse Ox 98 98 O2 Delivery Nasal Cannula Nasal Cannula O2 Flow Rate 3.0 3.0 Intake and Output 03/04/20 03/04/20 03/05/20 15:00 23:00 07:00 Intake Total 50 ml Balance 50 ml Nutrition Consultation Dietary Evaluation: Recommendations by RD: Dietary education by RD, Increase Calorie Intake, Protein supplementation Comments: REC continue ADA/cardiac diet with glucerna tid Expected Outcomes/Goals: to meet >75% est nutrition and fluid needs- goal ongoing Malnutrition Findings: Food and Nutrition Intake (Mod: <75% est energy req 7days Weight Status: Morbidly Obese Fluid Accumulation (Non-Severe: Mild depletion SOCORRO RICKETTS MD March 05, 2020 15:58
--- NOTE | 2020-03-05 17:41 | NUR ---
Pharmacy Warfarin Dosing Note S: Pharmacy consulted to assist with anticoagulation therapy started O: MICHAELA COOPER is a 74 year old F with Atrial Fibrillation LABS: Last INR: 2.9 Last HGB: 11.2 Last HCT: 35.4 Last PLT: 297 Last dose of 3 mg given on 03/05/20 at 1654 Vitamin K given: N Ongoing Drug Interactions: ASA A:INR of 2.9 is within desired range. Target range for this patient is: 2 -3 P: Warfarin dose: 3 mg Today at 1600 Bridge Therapy: None Next INR due 03/06 AM Pharmacy anticoagulation service will continue to follow. ISAIAS PHELPS RPH, 03/05/20 [id number]
[2020-03-05] MEDS ORDERED: WARFARIN 3 MG TABLET. PO ONE (18:00)
[2020-03-05 19:00] VITALS: BP 124/62
[2020-03-05] MEDS: ATORVASTATIN CALCIUM 20 MG TABLET PO SCH (22:56)
[2020-03-05] MEDS: LATANOPROST 0.005% OPHTH SOLUTION 2.5ML BOTTLE. OU SCH (22:57)
[2020-03-05 23:00] VITALS: BP 145/61
[2020-03-06 03:00] VITALS: BP 117/58
[2020-03-06 05:24] LABS: PROTHROMBIN TIME PATIENT 24.2 SEC (11.7-14.0)
[2020-03-06 07:00] VITALS: BP 141/104
[2020-03-06] MEDS: INSULIN LISPRO 300 UNITS/3 ML VIAL. SQ SCH ×3 (08:00→16:37)
[2020-03-06] MEDS: FUROSEMIDE 40 MG TABLET. PO SCH (09:01)
[2020-03-06] MEDS: FLUTICASONE 50MCG/NASAL SPRAY 16GM BOTTLE. NS SCH (09:01)
[2020-03-06] MEDS: ASPIRIN ENTERIC COATED 81 MG TABLET.DR. PO SCH (09:01)
[2020-03-06] MEDS: CETIRIZINE HCL 10 MG TABLET. PO SCH (09:02)
[2020-03-06] MEDS: LACTOBACILLUS RHAMNOSUS GG 1 CAPSULE. PO SCH ×2 (09:02→19:58)
[2020-03-06] MEDS: ZINC SULFATE 220 MG CAPSULE. PO SCH (09:02)
[2020-03-06] MEDS: buPROPion SR 150 MG TABLET.SA PO SCH (09:02)
[2020-03-06] MEDS: ISOSORBIDE MONONITRATE ER 30 MG TAB.ER.24H PO SCH (09:03)
[2020-03-06] MEDS: amLODIPine BESYLATE 10 MG TABLET PO SCH (09:04)
[2020-03-06] MEDS: LISINOPRIL 20 MG TABLET PO SCH (09:04)
[2020-03-06] MEDS: METOPROLOL TART IMMED RELEASE 50 MG TABLET. PO SCH ×2 (09:06→19:59)
[2020-03-06 11:00] VITALS: BP 114/48
--- NOTE | 2020-03-06 11:27 | NUR ---
Pharmacy Warfarin Dosing Note S:Pharmacy consulted to assist with anticoagulation therapy started with target INR: 2 -3 O:MICHAELA COOPER is a 74 year old F with Atrial Fibrillation LABS: Last INR: 2.2 Last HGB: 11.2 Last HCT: 35.4 Last PLT: 297 Last dose of 3 mg given on 03/05/20 at 1654 Previous Regimen: Vitamin K given: N Drug Interaction Changes: Same Interacting Drug Ongoing Drug Interactions: ASA A:INR of 2.2 is within desired range. Target range for this patient is: 2 -3 P: Warfarin dose: 3 mg Today at 1600 Bridge Therapy: None . . Next INR due TOMORROW. Pharmacy anticoagulation service will continue to follow. BRYAN ALICIA RPH, 03/06/20 [id number]
--- NOTE | 2020-03-06 12:56 | PDOC ---
CARDIO Progress Notes Date and Time Date of Service 03/06/2020 Time of Evaluation 1210 Subjective Subjective: No Chest Pain, No shortness of breath, No Palpitations Vitals Vitals Vital Signs Date Time Temp Pulse Resp B/P (MAP) Pulse Ox O2 Delivery O2 Flow Rate FiO2 03/06/20 09:06 85 141/104 03/06/20 07:00 97.0 12 Nasal Cannula 2.0 97.0 03/06/20 03:00 98 Weight Weight [ ] Laboratory Labs Laboratory Tests Test 03/05/20 16:39 03/05/20 20:26 03/06/20 04:00 03/06/20 08:31 Glucose (Fingerstick) 180 mg/dL (70-99) 184 mg/dL (70-99) 142 mg/dL (70-99) Prothrombin Time 24.2 SEC (11.7-14.0) Prothromb Time International Ratio 2.2 (0.8-1.1) Test 03/06/20 12:08 Glucose (Fingerstick) 160 mg/dL (70-99) Microbiology Micro Microbiology 02/23/20 Blood Culture - Final, Complete NO GROWTH AFTER 5 DAYS Physical Exam Chest: Symmetric Heart: irregularly irregular (AFIB rate controlled) Extremities: No Edema Neurology: alert, oriented, follow commands Other Exams Discussed with RN, no SOA, No pain, waiting on SNU approval. Assessment Assessment 1. Dizziness, nausea/vomiting: none further. notable for possible right cerebellar mass, awaiting neurosurgery input 2. Hypertensive urgency; labile episodes but better 3. Acute on chronic diastolic CHF; Recent echo with preserved LV systolic function, compensated 4. PAFIB vs chronic: AFIB rate controlled no further bradycardia since removal of dig and cardizem. 5. Hyperlipidemia; statin therapy 6. Diabetes, II 7. Recent COVID + with associated COPD; unknown date Recommendations 1. No further Dig and cardizem. Continue metoprolol. Coumadin for stroke prevention INR 2.2 2. Continue current BP regimen including norvasc, hydralazine, lisinopril.and lasix. 3. Consider outpatient cardioversion once fully recovered from covid. 4. Supportive care. Follow up in 4-6 weeks 5. May DC to SNU per cardiac standpoint. IVETTE COREA APRN March 06, 2020 12:56
[2020-03-06 15:00] VITALS: BP 115/55
[2020-03-06] MEDS ORDERED: WARFARIN 3 MG TABLET. PO ONE (16:00)
--- NOTE | 2020-03-06 16:27 | PDOC ---
PROGRESS NOTES Chief Complaint Chief Complaint A/P: Coronavirus infection Cough - with shortness of breath. Secondary to acute COPD exacerbation. Improved Diarrhea - will monitor, psyllium HTN - cont meds Hyperlipidemia - cont statin AFIB - on BB and coumadin, will continue, monitor INR CHF - unknown if ischemic cardiomyopathy, seems compensated currently Acute exacerbation of COPD - as above Depression - cont meds DM2 - basal bolus plus insulin while inpatient Visual blurring - likely glaucoma, difficult to test pressure here, currently on lananoprost (prostaglandin) daily, seems to have improved her vision but not recovered completely. Will need outpatient formal ophtalmological evaluation once she recovers from her covid 19 infection. 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 was recently tested for COVID-19 and was positive. Now, she has nausea, vomiting, and diarrhea. She has some associated dizziness. This has been occurring off and on for a few days, worse with moving, better with sitting still. She gets fatigued easily. Her dizziness worsens with change in position. She has underlying COPD, but states her shortness of breath is worse. While in the ER, she is noted to have a low-grade temperature of 100.5. She also has a mild white count elevation 13K. Chest x-ray is showing a possible atypical pneumonia. Was called for admission for further treatment In ED noted in afib, normal troponin. CXR with no acute findings. BNP 1212, K 5.2, Cr 1.1, glucose 173. Admitted for further care of Hypertensive urgency. Chest x-ray showed bilateral diffuse interstitial infiltrate and cardiomegaly. The patient received Rocephin and azithromycin 1 dose each from the ER. 02/24: States her breathing is okay, although she is normally not on oxygen. She is requiring 3 L of oxygen. Denies now any nausea, vomiting, or diarrhea which she has had, she says. Denies any abdominal pain, urinary symptoms, headache, or visual symptoms. 02/25: She is complaining blurred vision in her right eye today. No focal neur ologic deficits otherwise. She lost IV access, has been converted to p.o. antibiotics and p.o. antihypertensives. 02/26: Overnight bradycardic, metoprolol had been increased to 75 mg, now reduced to 25 mg twice daily, still has Cardizem 300 mg daily. Lost IV access. SBP 198 today. HR in the 80s. Still feels very weak. 02/27: BP better controlled. On amlodipine 10 mg, lisinopril 20 mg, metoprolol. Still hypoxic still very weak still with some right eye blurring. She says she feels terrible and tired. 02/28: Overnight no events. Afebrile BP better controlled. Still hypoxic. Still with blurred vision in her right eye. Still dizzy and nauseated. 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 Neuro consult. 03/01: Overnight no events. Afebrile. BP controlled. Still hypoxic. Unc oordination and right visual blurring persist. CT results concerning for possible right cerebellar mass and left basal ganglia infarct. 03/02: Neurology systems security consultant recommendations greatly appreciated. Continue with current treatment plan in light of his slow improvement, holding off on doing MRI given the stability of her clinical picture. 03/03: Patient from the neurosurgical standpoint of view according to nursing staff is okay to be dismissed despite not having an MRI which can be done in the outpatient setting, patient seems to be not progressing much we will continue to monitor for the next 24 hours 03/04: Patient overall stable, contacted my CM regarding nursing staff concerns about patient's dizziness. we will observe for 24 hours. Neuro systems security consultant should be back in the am hopefully will discharge soon 03/05: Patient continues to be quite dizzy, the patient lives in assisted living facility and physical therapy has recommended inpatient rehab for her discharge. We have requested 80 from case management in order to manage her disposition at this point. Plan: Will add lovenox, suptherapeutic INR. Monitor BP Rehab modalities Formal visual examination, no clear signs of increased ocular pressure, Vitals Vitals Vital Signs Date Time Temp Pulse Resp B/P (MAP) Pulse Ox O2 Delivery O2 Flow Rate FiO2 03/06/20 15:00 97.6 81 115/55 (75) 98 Nasal Cannula 2.0 97.6 03/06/20 07:00 12 Physical Exam Physical Exam GENERAL: Alert, oriented female, not in any distress. Coop HEENT: Both pupils are round and reacting. No conjunctival lesion, no lesion in the mouth. NECK: Supple, no JVP, no lymphadenopathy. LUNGS: Clear. HEART: S1, S2 regular. ABDOMEN: Benign. EXTREMITIES: No edema or cyanosis. SKIN: Unremarkable. NEUROLOGIC: The patient is alert, awake, and appropriate. No focal neurologic deficit. Lungs: Clear Labs LABS Laboratory Tests Test 03/05/20 16:39 03/05/20 20:26 03/06/20 04:00 03/06/20 08:31 Glucose (Fingerstick) 180 mg/dL (70-99) 184 mg/dL (70-99) 142 mg/dL (70-99) Prothrombin Time 24.2 SEC (11.7-14.0) Prothromb Time International Ratio 2.2 (0.8-1.1) Test 03/06/20 12:08 03/06/20 15:19 Glucose (Fingerstick) 160 mg/dL (70-99) 168 mg/dL (70-99) Assessment and Plan Assessmemt and Plan Problems Medical Problems: (1) COVID-19 Status: Acute (2) Hypertensive urgency Status: Acute (3) Pneumonia Status: Acute (4) Vertigo Status: Acute Comment Review of Relevant I have reviewed the following items raman (where applicable) has been applied. Labs Laboratory Tests Test 03/04/20 16:49 03/04/20 21:20 03/05/20 05:00 03/05/20 08:41 Glucose (Fingerstick) 173 mg/dL (70-99) 87 mg/dL (70-99) 136 mg/dL (70-99) Prothrombin Time 30.0 SEC (11.7-14.0) Prothromb Time International Ratio 2.9 (0.8-1.1) Test 03/05/20 11:52 03/05/20 16:39 03/05/20 20:26 03/06/20 04:00 Glucose (Fingerstick) 165 mg/dL (70-99) 180 mg/dL (70-99) 184 mg/dL (70-99) Prothrombin Time 24.2 SEC (11.7-14.0) Prothromb Time International Ratio 2.2 (0.8-1.1) Test 03/06/20 08:31 03/06/20 12:08 03/06/20 15:19 Glucose (Fingerstick) 142 mg/dL (70-99) 160 mg/dL (70-99) 168 mg/dL (70-99) Laboratory Tests Test 03/05/20 16:39 03/05/20 20:26 03/06/20 04:00 03/06/20 08:31 Glucose (Fingerstick) 180 mg/dL (70-99) 184 mg/dL (70-99) 142 mg/dL (70-99) Prothrombin Time 24.2 SEC (11.7-14.0) Prothromb Time International Ratio 2.2 (0.8-1.1) Test 03/06/20 12:08 03/06/20 15:19 Glucose (Fingerstick) 160 mg/dL (70-99) 168 mg/dL (70-99) Microbiology 02/23/20 Blood Culture - Final, Complete NO GROWTH AFTER 5 DAYS Medications Current Medications Ondansetron HCl (Zofran) 4 mg 1X ONCE IVP Last administered on 02/23/20at 19:43; Start 02/23/20 at 19:45; Stop 02/23/20 at 19:46; Status DC Meclizine HCl (Antivert) 25 mg 1X ONCE PO Last administered on 02/23/20at 19:44; Start 02/23/20 at 19:45; Stop 02/23/20 at 19:46; Status DC Sodium Chloride 1,000 ml @ 1,000 mls/hr Q1H IV Last administered on 02/23/20at 20:14; Start 02/23/20 at 19:28; Stop 02/23/20 at 20:27; Status DC Lorazepam (Ativan Inj) 1 mg 1X ONCE IVP Last administered on 02/23/20at 19:44; Start 02/23/20 at 19:45; Stop 02/23/20 at 19:46; Status DC Hydralazine HCl (Apresoline Inj) 10 mg 1X ONCE IVP Last administered on 02/23/20at 20:14; Start 02/23/20 at 20:00; Stop 02/23/20 at 20:03; Status DC Scopolamine (Transderm-Scop) 1 patch 1X ONCE TD Last administered on 02/23/20at 22:21; Start 02/23/20 at 22:30; Stop 02/23/20 at 22:31; Status DC Ceftriaxone Sodium (Rocephin) 1 gm 1X ONCE IVP Last administered on 02/23/20at 22:27; Start 02/23/20 at 22:30; Stop 02/23/20 at 22:31; Status DC Azithromycin (Zithromax) 500 mg 1X ONCE PO Last administered on 02/23/20at 22:26; Start 02/23/20 at 22:30; Stop 02/23/20 at 22:31; Status DC Hydralazine HCl (Apresoline Inj) 10 mg 1X ONCE IVP Last administered on 02/23/20at 23:12; Start 02/23/20 at 23:30; Stop 02/23/20 at 23:31; Status DC Ondansetron HCl (Zofran) 4 mg PRN Q8HRS PRN IV NAUSEA/VOMITING 1ST CHOICE; Start 02/23/20 at 23:00; Stop 02/24/20 at 22:59; Status DC Acetaminophen (Tylenol) 650 mg PRN Q4HRS PRN PO FEVER > 100.3'F; Start 02/23/20 at 23:00; Stop 02/24/20 at 12:22; Status DC Albuterol/ Ipratropium (Duoneb) 3 ml RTQID NEB ; Start 02/24/20 at 08:00; Stop 02/24/20 at 09:21; Status DC Albuterol/ Ipratropium (Duoneb) 3 ml 1X ONCE NEB ; Start 02/23/20 at 23:45; Stop 02/23/20 at 23:46; Status DC Clonidine HCl (Catapres) 0.2 mg 1X ONCE PO Last administered on 02/24/20at 00:47; Start 02/24/20 at 01:00; Stop 02/24/20 at 01:01; Status DC Albuterol/ Ipratropium (Duoneb) 3 ml PRN Q4HRS PRN NEB SHORTNESS OF BREATH; Start 02/24/20 at 09:30; Stop 02/25/20 at 09:29; Status DC Hydralazine HCl (Apresoline Inj) 10 mg PRN Q4HRS PRN IVP ELEVATED BP, SEE COMMENTS; Start 02/24/20 at 09:45; Stop 02/27/20 at 03:42; Status DC Piperacillin Sod/ Tazobactam Sod 3.375 gm/Sodium Chloride 50 ml @ 100 mls/hr Q6HRS IV Last administered on 02/26/20at 05:53; Start 02/24/20 at 12:00; Stop 02/26/20 at 10:11; Status DC Linezolid/Dextrose 300 ml @ 300 mls/hr Q12HR IV Last administered on 02/26/20at 08:55; Start 02/24/20 at 11:00; Stop 02/26/20 at 10:11; Status DC Acetaminophen (Tylenol) 650 mg PRN Q6HRS PRN PO HEADACHE/TEMP Last administered on 03/02/20at 16:41; Start 02/24/20 at 12:15 Aspirin (Ecotrin) 81 mg DAILY PO Last administered on 03/06/20at 09:01; Start 02/25/20 at 09:00 Atorvastatin Calcium (Lipitor) 20 mg QHS PO Last administered on 03/05/20at 22:56; Start 02/24/20 at 21:00 Bupropion HCl (Wellbutrin Sr) 150 mg DAILY PO Last administered on 03/06/20at 09:02; Start 02/25/20 at 09:00 Digoxin (Lanoxin) 125 mcg DAILY PO ; Start 02/25/20 at 09:00; Stop 02/24/20 at 16:58; Status DC Diltiazem HCl (Cardizem 24hr Cd) 300 mg DAILY PO ; Start 02/25/20 at 09:00; Stop 02/24/20 at 16:58; Status DC Ergocalciferol (Vitamin D2) 50,000 unit QSA PO Last administered on 02/29/20at 16:54; Start 02/29/20 at 16:00 Fluticasone Propionate (Flonase) 2 spray DAILY NS Last administered on 03/06/20at 09:01; Start 02/25/20 at 09:00 Furosemide (Lasix) 40 mg DAILY PO Last administered on 03/06/20at 09:01; Start 02/25/20 at 09:00 Hydralazine HCl (Apresoline) 25 mg TID PO Last administered on 02/26/20at 08:56; Start 02/24/20 at 14:00; Stop 02/26/20 at 11:53; Status DC Lisinopril (Prinivil) 10 mg DAILY PO ; Start 02/25/20 at 09:00; Stop 02/24/20 at 16:58; Status DC Metoprolol Tartrate (Lopressor) 75 mg BID PO Last administered on 02/26/20at 08:56; Start 02/24/20 at 21:00; Stop 02/26/20 at 16:25; Status DC Warfarin Sodium (Coumadin) 0.5 mg DAILY PO ; Start 02/25/20 at 09:00; Stop 02/24/20 at 13:04; Status DC Warfarin Sodium (Coumadin) 6 mg DAILY16 PO ; Start 02/24/20 at 16:00; Status UNV Insulin Human Lispro (HumaLOG) 15 units TIDWMEALS SQ Last administered on 03/06/20at 12:00; Start 02/24/20 at 17:00 Loperamide HCl (Imodium) 2 mg PRN Q15MIN PRN PO DIARRHEA; Start 02/24/20 at 12:45 Cetirizine HCl (ZyrTEC) 10 mg DAILY PO Last administered on 03/06/20at 09:02; Start 02/25/20 at 09:00 Warfarin Sodium (Coumadin Per Pharmacy) 1 each PRN DAILY PRN MC SEE COMMENTS Last administered on 03/06/20at 11:25; Start 02/24/20 at 12:45 Warfarin Sodium (Coumadin) 4 mg 1X WARF ONCE PO Last administered on 02/24/20at 17:27; Start 02/24/20 at 16:00; Stop 02/24/20 at 16:01; Status DC Furosemide (Lasix) 40 mg 1X ONCE IVP Last administered on 02/24/20at 17:25; Start 02/24/20 at 17:00; Stop 02/24/20 at 17:01; Status DC Digoxin (Lanoxin) 125 mcg DAILY PO Last administered on 02/26/20at 08:57; Start 02/24/20 at 17:00; Stop 02/26/20 at 16:25; Status DC Diltiazem HCl (Cardizem 24hr Cd) 300 mg DAILY PO Last administered on 02/26/20at 08:57; Start 02/24/20 at 17:00; Stop 02/26/20 at 16:25; Status DC Lisinopril (Prinivil) 10 mg DAILY PO Last administered on 02/27/20at 09:02; Start 02/24/20 at 17:00; Stop 02/28/20 at 08:56; Status DC Ondansetron HCl (Zofran) 4 mg PRN Q6HRS PRN IVP NAUSEA/VOMITING Last administered on 02/25/20at 11:41; Start 02/25/20 at 11:30; Stop 02/27/20 at 03:42; Status DC Warfarin Sodium (Coumadin) 6 mg 1X WARF ONCE PO Last administered on 02/25/20at 17:21; Start 02/25/20 at 16:00; Stop 02/25/20 at 16:01; Status DC Lactobacillus Rhamnosus (Culturelle) 1 cap BID PO Last administered on 03/06/20at 09:02; Start 02/25/20 at 21:00 Amoxicillin/ Clavulanate Potassium (Augmentin 875/ 125mg) 1 tab BID PO Last administered on 03/01/20at 20:32; Start 02/26/20 at 21:00; Stop 03/01/20 at 21:59; Status DC Hydralazine HCl (Apresoline) 50 mg TID PO Last administered on 02/26/20at 13:34; Start 02/26/20 at 14:00; Stop 02/26/20 at 16:25; Status DC Zinc Sulfate (Orazinc) 220 mg DAILY PO Last administered on 03/06/20at 09:02; Start 02/27/20 at 09:00 Latanoprost (Xalatan) 1 drop QHS OU Last administered on 03/05/20at 22:57; Start 02/26/20 at 12:45 Diltiazem HCl (Cardizem 24hr Cd) 300 mg DAILYWLUN PO ; Start 02/27/20 at 12:00; Stop 02/28/20 at 08:56; Status DC Hydralazine HCl (Apresoline) 75 mg TID PO Last administered on 03/01/20at 09:14; Start 02/26/20 at 21:00; Stop 03/01/20 at 10:22; Status DC Metoprolol Tartrate (Lopressor) 50 mg BID PO Last administered on 03/06/20at 09:06; Start 02/27/20 at 21:00 Amlodipine Besylate (Norvasc) 10 mg DAILY ONCE PO ; Start 02/28/20 at 09:00; Stop 02/27/20 at 11:57; Status DC Nitroglycerin (Nitro-Bid Oint) 1 inch Q6HRS TP Last administered on 03/03/20at 12:16; Start 02/27/20 at 12:00; Stop 03/03/20 at 14:32; Status DC Amlodipine Besylate (Norvasc) 10 mg 1X ONCE PO Last administered on 02/27/20at 12:28; Start 02/27/20 at 12:00; Stop 02/27/20 at 12:01; Status DC Ondansetron HCl (Zofran Odt) 4 mg PRN Q6HRS PRN PO NAUSEA/VOMITING Last administered on 02/27/20at 15:08; Start 02/27/20 at 13:15 Prochlorperazine Edisylate (Compazine) 10 mg PRN Q6HRS PRN IM NAUSEA/VOMITING Last administered on 02/29/20at 18:55; Start 02/27/20 at 13:15 Metoprolol Tartrate (Lopressor) 50 mg 1X ONCE PO ; Start 02/27/20 at 14:00; Stop 02/27/20 at 14:01; Status DC Amlodipine Besylate (Norvasc) 10 mg DAILY PO Last administered on 03/06/20at 09:04; Start 02/28/20 at 09:00 Warfarin Sodium (Coumadin) 6 mg 1X WARF ONCE PO Last administered on 02/27/20at 15:09; Start 02/27/20 at 16:00; Stop 02/27/20 at 16:01; Status DC Lisinopril (Prinivil) 20 mg DAILY PO Last administered on 02/29/20 08:30; Start 02/28/20 at 09:00; Stop 02/29/20 at 11:28; Status DC Enoxaparin Sodium (Lovenox 80mg Syringe) 80 mg Q12HR SQ Last administered on 03/02/20at 09:12; Start 02/28/20 at 12:15; Stop 03/02/20 at 15:58; Status DC Warfarin Sodium (Coumadin) 9 mg 1X WARF ONCE PO Last administered on 02/28/20at 17:16; Start 02/28/20 at 16:00; Stop 02/28/20 at 16:01; Status DC Warfarin Sodium (Coumadin) 9 mg 1X WARF ONCE PO Last administered on 02/29/20at 16:55; Start 02/29/20 at 16:00; Stop 02/29/20 at 16:01; Status DC Lisinopril (Prinivil) 40 mg DAILY PO Last administered on 03/06/20at 09:04; Start 03/01/20 at 09:00 Lisinopril (Prinivil) 20 mg 1X ONCE PO Last administered on 02/29/20at 14:42; Start 02/29/20 at 12:30; Stop 02/29/20 at 12:31; Status DC Hydralazine HCl (Apresoline) 100 mg TID PO Last administered on 03/06/20at 14:00; Start 03/01/20 at 14:00 Warfarin Sodium (Coumadin) 9 mg 1X WARF ONCE PO Last administered on 03/01/20at 17:59; Start 03/01/20 at 16:00; Stop 03/01/20 at 16:01; Status DC Isosorbide Mononitrate (Imdur) 30 mg DAILY PO Last administered on 03/06/20at 09:03; Start 03/02/20 at 15:00 Warfarin Sodium (Coumadin) 7.5 mg 1X WARF ONCE PO Last administered on 03/02/20at 16:06; Start 03/02/20 at 16:00; Stop 03/02/20 at 16:01; Status DC Ondansetron HCl (Zofran) 4 mg 1X ONCE IM Last administered on 03/02/20at 16:07; Start 03/02/20 at 16:15; Stop 03/02/20 at 16:16; Status DC Warfarin Sodium (Coumadin) 6 mg 1X WARF ONCE PO Last administered on 03/03/20at 16:35; Start 03/03/20 at 16:00; Stop 03/03/20 at 16:01; Status DC Warfarin Sodium (Coumadin) 3 mg 1X WARF ONCE PO Last administered on 03/04/20at 16:54; Start 03/04/20 at 16:00; Stop 03/04/20 at 16:01; Status DC Warfarin Sodium (Coumadin) 3 mg 1X ONCE PO Last administered on 03/05/20at 17:45; Start 03/05/20 at 18:00; Stop 03/05/20 at 18:01; Status DC Warfarin Sodium (Coumadin) 3 mg 1X WARF ONCE PO Last administered on 03/06/20at 16:10; Start 03/06/20 at 16:00; Stop 03/06/20 at 16:01; Status DC Active Scripts Active Atorvastatin Calcium 20 Mg Tablet 20 Mg PO QHS 30 Days Lisinopril 10 Mg Tablet 10 Mg PO DAILY 30 Days Tylenol (Acetaminophen) 325 Mg Tablet 650 Mg PO PRN Q6HRS PRN 30 Days Coumadin (Warfarin Sodium) 3 Mg Tablet 6 Mg PO DAILY16 30 Days Diltiazem 24HR Cd (Diltiazem Hcl) 300 Mg Cap.er.24h 300 Mg PO DAILY 30 Days Lanoxin (Digoxin) 125 Mcg Tablet 125 Mcg PO DAILY 30 Days [Albuterol Sulfate] 2.5 MG/3 ML Nebu 2.5 Mg NEB PRN Q4HRS PRN Reported Ventolin Hfa Inhaler (Albuterol Sulfate) 18 Gm Hfa.aer.ad 2 Puff INH Q4HRS Combivent Respimat Inhal (Ipratropium/Albuterol Sulfate) 4 Gm Aer.w.adap 2 Inh IH QID Loratadine 10 Mg Tablet 10 Mg PO DAILY Loperamide (Loperamide Hcl) 2 Mg Tablet 2 Mg PO PRN Q4HRS PRN Furosemide 40 Mg Tablet 40 Mg PO DAILY Metoprolol Tartrate 50 Mg Tablet 75 Mg PO BID Warfarin Sodium 1 Mg Tablet 0.5 Mg PO DAILY Hydralazine Hcl 25 Mg Tablet 1 Tab PO TID Wellbutrin Sr (Bupropion Hcl) 150 Mg Tablet.er 150 Mg PO DAILY Novolog (Insulin Aspart) 100 Unit/1 Ml Cartridge 15 Unit SQ TID Aspirin Ec (Aspirin) 81 Mg Tablet.dr 1 Tab PO DAILY Fluticasone Propionate Nasal Winn (Fluticasone Propionate) 16 Gm Winn.susp 2 Winn NS DAILY LAST DOSE GIVEN: DATE: 10-13-15 TIME: 9 am NEXT DOSE DUE: DATE: 10-14-15 TIME: 9 am Vitamin D2 (Ergocalciferol (Vitamin D2)) 50,000 Unit Capsule 1 Cap PO QSA Vitals/I & O Vital Sign - Last 24 Hours 03/05/20 03/05/20 03/05/20 03/05/20 19:00 20:00 22:56 22:57 Temp 99.3 99.3 Pulse 89 89 89 Resp 20 B/P (MAP) 124/62 (82) 124/62 124/62 Pulse Ox 97 O2 Delivery Nasal Cannula O2 Flow Rate 2.0 03/05/20 03/06/20 03/06/20 03/06/20 23:00 03:00 07:00 08:00 Temp 97.0 96.9 97.0 97.0 96.9 97.0 Pulse 84 75 85 Resp 18 16 12 B/P (MAP) 145/61 (89) 117/58 (77) 141/104 (116) Pulse Ox 97 98 O2 Delivery Nasal Cannula Nasal Cannula Nasal Cannula O2 Flow Rate 2.0 2.0 2.0 03/06/20 03/06/20 03/06/20 03/06/20 09:03 09:04 09:04 09:06 Pulse 85 85 85 85 B/P (MAP) 141/104 141/104 141/104 141/104 03/06/20 03/06/20 03/06/20 03/06/20 09:06 11:00 14:00 15:00 Temp 97.3 97.6 97.3 97.6 Pulse 85 86 81 81 B/P (MAP) 141/104 114/48 (70) 115/55 115/55 (75) Pulse Ox 98 98 O2 Delivery Nasal Cannula Nasal Cannula O2 Flow Rate 2.0 2.0 Nutrition Consultation Dietary Evaluation: Recommendations by RD: Dietary education by RD, Increase Calorie Intake, Protein supplementation Comments: REC continue ADA/cardiac diet with glucerna tid Expected Outcomes/Goals: to meet >75% est nutrition and fluid needs- goal ongoing Malnutrition Findings: Food and Nutrition Intake (Mod: <75% est energy req 7days Weight Status: Morbidly Obese Fluid Accumulation (Non-Severe: Mild depletion SOCORRO RICKETTS MD March 06, 2020 16:26
--- NOTE | 2020-03-06 18:47 | NUR ---
CALLED pt sON (Juancarlos) [phone] NO ANSWER AND MAILBOX FULL; CALLED PT DAUGHTER (ROCIO) [phone] NO ANSWER AND MAILBOX FULL; NOTIFIED PORSCHE BOWERS REGARDING PATIENT [facility] ON [facility]/07.
[2020-03-06 19:00] VITALS: BP 124/64
[2020-03-06] MEDS: ATORVASTATIN CALCIUM 20 MG TABLET PO SCH (19:58)
[2020-03-06] MEDS: LATANOPROST 0.005% OPHTH SOLUTION 2.5ML BOTTLE. OU SCH (20:00)
[2020-03-06 23:00] VITALS: BP 112/60
[2020-03-07 03:00] VITALS: BP 138/70
[2020-03-07 05:37] LABS: PROTHROMBIN TIME PATIENT 18.7 SEC (11.7-14.0)
[2020-03-07 07:00] VITALS: BP 164/75
[2020-03-07] MEDS: INSULIN LISPRO 300 UNITS/3 ML VIAL. SQ SCH ×3 (08:00→16:39)
[2020-03-07] MEDS: LACTOBACILLUS RHAMNOSUS GG 1 CAPSULE. PO SCH ×2 (08:23→21:20)
[2020-03-07] MEDS: CETIRIZINE HCL 10 MG TABLET. PO SCH (08:23)
[2020-03-07] MEDS: FUROSEMIDE 40 MG TABLET. PO SCH (08:24)
[2020-03-07] MEDS: buPROPion SR 150 MG TABLET.SA PO SCH (08:24)
[2020-03-07] MEDS: LISINOPRIL 20 MG TABLET PO SCH (08:24)
[2020-03-07] MEDS: ISOSORBIDE MONONITRATE ER 30 MG TAB.ER.24H PO SCH (08:25)
[2020-03-07] MEDS: ASPIRIN ENTERIC COATED 81 MG TABLET.DR. PO SCH (08:26)
[2020-03-07] MEDS: METOPROLOL TART IMMED RELEASE 50 MG TABLET. PO SCH ×2 (08:26→21:21)
[2020-03-07] MEDS: amLODIPine BESYLATE 10 MG TABLET PO SCH (08:26)
[2020-03-07] MEDS: FLUTICASONE 50MCG/NASAL SPRAY 16GM BOTTLE. NS SCH (08:26)
[2020-03-07] MEDS: ZINC SULFATE 220 MG CAPSULE. PO SCH (08:26)
[2020-03-07 11:00] VITALS: BP 134/63
--- NOTE | 2020-03-07 11:02 | NUR ---
Pharmacy Warfarin Dosing Note S:Pharmacy consulted to assist with anticoagulation therapy started with target INR: 2 -3 O:MICHAELA COOPER is a 74 year old F with Atrial Fibrillation LABS: Last INR: 1.6 Last HGB: 11.2 Last HCT: 35.4 Last PLT: 297 Last dose of 3 mg given on 03/06/20 at 1610 Vitamin K given: N Drug Interaction Changes: Same Interacting Drug Ongoing Drug Interactions: ASA A:INR of 1.6 is below desired range. Target range for this patient is: 2 -3 P: Warfarin dose: 4 mg Today at 1600 Bridge Therapy: None Next INR due 03/08/20 Pharmacy anticoagulation service will continue to follow. LEXY DUMONT [facility], 03/07/20 110
[2020-03-07 15:00] VITALS: BP 134/69
[2020-03-07] MEDS ORDERED: WARFARIN 4 MG TABLET. PO ONE (16:00)
[2020-03-07] MEDS: ERGOCALCIFEROL (VITAMIN D2) 50,000 UNIT CAPSULE. PO SCH (16:38)
--- NOTE | 2020-03-07 19:09 | PDOC ---
PROGRESS NOTES Chief Complaint Chief Complaint A/P: Coronavirus infection Cough - with shortness of breath. Secondary to acute COPD exacerbation. Improved Diarrhea - will monitor, psyllium HTN - cont meds Hyperlipidemia - cont statin AFIB - on BB and coumadin, will continue, monitor INR CHF - unknown if ischemic cardiomyopathy, seems compensated currently Acute exacerbation of COPD - as above Depression - cont meds DM2 - basal bolus plus insulin while inpatient Visual blurring - likely glaucoma, difficult to test pressure here, currently on lananoprost (prostaglandin) daily, seems to have improved her vision but not recovered completely. Will need outpatient formal ophtalmological evaluation once she recovers from her covid 19 infection. 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 was recently tested for COVID-19 and was positive. Now, she has nausea, vomiting, and diarrhea. She has some associated dizziness. This has been occurring off and on for a few days, worse with moving, better with sitting still. She gets fatigued easily. Her dizziness worsens with change in position. She has underlying COPD, but states her shortness of breath is worse. While in the ER, she is noted to have a low-grade temperature of 100.5. She also has a mild white count elevation 13K. Chest x-ray is showing a possible atypical pneumonia. Was called for admission for further treatment In ED noted in afib, normal troponin. CXR with no acute findings. BNP 1212, K 5.2, Cr 1.1, glucose 173. Admitted for further care of Hypertensive urgency. Chest x-ray showed bilateral diffuse interstitial infiltrate and cardiomegaly. The patient received Rocephin and azithromycin 1 dose each from the ER. 02/24: States her breathing is okay, although she is normally not on oxygen. She is requiring 3 L of oxygen. Denies now any nausea, vomiting, or diarrhea which she has had, she says. Denies any abdominal pain, urinary symptoms, headache, or visual symptoms. 02/25: She is complaining blurred vision in her right eye today. No focal neur ologic deficits otherwise. She lost IV access, has been converted to p.o. antibiotics and p.o. antihypertensives. 02/26: Overnight bradycardic, metoprolol had been increased to 75 mg, now reduced to 25 mg twice daily, still has Cardizem 300 mg daily. Lost IV access. SBP 198 today. HR in the 80s. Still feels very weak. 02/27: BP better controlled. On amlodipine 10 mg, lisinopril 20 mg, metoprolol. Still hypoxic still very weak still with some right eye blurring. She says she feels terrible and tired. 02/28: Overnight no events. Afebrile BP better controlled. Still hypoxic. Still with blurred vision in her right eye. Still dizzy and nauseated. 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 Neuro consult. 03/01: Overnight no events. Afebrile. BP controlled. Still hypoxic. Unc oordination and right visual blurring persist. CT results concerning for possible right cerebellar mass and left basal ganglia infarct. 03/02: Neurology education sales consultant recommendations greatly appreciated. Continue with current treatment plan in light of his slow improvement, holding off on doing MRI given the stability of her clinical picture. 03/03: Patient from the neurosurgical standpoint of view according to nursing staff is okay to be dismissed despite not having an MRI which can be done in the outpatient setting, patient seems to be not progressing much we will continue to monitor for the next 24 hours 03/04: Patient overall stable, contacted my CM regarding nursing staff concerns about patient's dizziness. we will observe for 24 hours. Neuro education sales consultant should be back in the am hopefully will discharge soon 03/05: Patient continues to be quite dizzy, the patient lives in assisted living facility and physical therapy has recommended inpatient rehab for her discharge. We have requested 80 from case management in order to manage her disposition at this point. 03/06: No acute events reported overnight, case discussed with nursing staff ramirez george in no acute distress no complaints during my visit 03/07: No acute events reported overnight, case discussed with nursing staff patient in no acute distress no complaints during my visit, physical therapy evaluated patient today, awaiting for available bed at acute rehab facility Plan: Will add lovenox, suptherapeutic INR. Monitor BP Rehab modalities Formal visual examination, no clear signs of increased ocular pressure, Vitals Vitals Vital Signs Date Time Temp Pulse Resp B/P (MAP) Pulse Ox O2 Delivery O2 Flow Rate FiO2 03/07/20 15:00 96.5 90 18 134/69 (90) 99 Nasal Cannula 2.0 96.5 Physical Exam Physical Exam GENERAL: Alert, oriented female, not in any distress. Coop HEENT: Both pupils are round and reacting. No conjunctival lesion, no lesion in the mouth. NECK: Supple, no JVP, no lymphadenopathy. LUNGS: Clear. HEART: S1, S2 regular. ABDOMEN: Benign. EXTREMITIES: No edema or cyanosis. SKIN: Unremarkable. NEUROLOGIC: The patient is alert, awake, and appropriate. No focal neurologic deficit. Lungs: Clear Labs LABS Laboratory Tests Test 03/07/20 04:30 03/07/20 08:17 03/07/20 11:14 03/07/20 16:20 Prothrombin Time 18.7 SEC (11.7-14.0) Prothromb Time International Ratio 1.6 (0.8-1.1) Glucose (Fingerstick) 131 mg/dL (70-99) 210 mg/dL (70-99) 151 mg/dL (70-99) Assessment and Plan Assessmemt and Plan Problems Medical Problems: (1) COVID-19 Status: Acute (2) Hypertensive urgency Status: Acute (3) Pneumonia Status: Acute (4) Vertigo Status: Acute Comment Review of Relevant I have reviewed the following items raman (where applicable) has been applied. Labs Laboratory Tests Test 03/05/20 20:26 03/06/20 04:00 03/06/20 08:31 03/06/20 12:08 Glucose (Fingerstick) 184 mg/dL (70-99) 142 mg/dL (70-99) 160 mg/dL (70-99) Prothrombin Time 24.2 SEC (11.7-14.0) Prothromb Time International Ratio 2.2 (0.8-1.1) Test 03/06/20 15:19 03/07/20 04:30 03/07/20 08:17 03/07/20 11:14 Glucose (Fingerstick) 168 mg/dL (70-99) 131 mg/dL (70-99) 210 mg/dL (70-99) Prothrombin Time 18.7 SEC (11.7-14.0) Prothromb Time International Ratio 1.6 (0.8-1.1) Test 03/07/20 16:20 Glucose (Fingerstick) 151 mg/dL (70-99) Laboratory Tests Test 03/07/20 04:30 03/07/20 08:17 03/07/20 11:14 03/07/20 16:20 Prothrombin Time 18.7 SEC (11.7-14.0) Prothromb Time International Ratio 1.6 (0.8-1.1) Glucose (Fingerstick) 131 mg/dL (70-99) 210 mg/dL (70-99) 151 mg/dL (70-99) Microbiology 02/23/20 Blood Culture - Final, Complete NO GROWTH AFTER 5 DAYS Medications Current Medications Ondansetron HCl (Zofran) 4 mg 1X ONCE IVP Last administered on 02/23/20at 19:43; Start 02/23/20 at 19:45; Stop 02/23/20 at 19:46; Status DC Meclizine HCl (Antivert) 25 mg 1X ONCE PO Last administered on 02/23/20at 19:44 ; Start 02/23/20 at 19:45; Stop 02/23/20 at 19:46; Status DC Sodium Chloride 1,000 ml @ 1,000 mls/hr Q1H IV Last administered on 02/23/20at 20:14; Start 02/23/20 at 19:28; Stop 02/23/20 at 20:27; Status DC Lorazepam (Ativan Inj) 1 mg 1X ONCE IVP Last administered on 02/23/20at 19:44; Start 02/23/20 at 19:45; Stop 02/23/20 at 19:46; Status DC Hydralazine HCl (Apresoline Inj) 10 mg 1X ONCE IVP Last administered on 02/23/20at 20:14; Start 02/23/20 at 20:00; Stop 02/23/20 at 20:03; Status DC Scopolamine (Transderm-Scop) 1 patch 1X ONCE TD Last administered on 02/23/20at 22:21; Start 02/23/20 at 22:30; Stop 02/23/20 at 22:31; Status DC Ceftriaxone Sodium (Rocephin) 1 gm 1X ONCE IVP Last administered on 02/23/20at 22:27; Start 02/23/20 at 22:30; Stop 02/23/20 at 22:31; Status DC Azithromycin (Zithromax) 500 mg 1X ONCE PO Last administered on 02/23/20at 22:26; Start 02/23/20 at 22:30; Stop 02/23/20 at 22:31; Status DC Hydralazine HCl (Apresoline Inj) 10 mg 1X ONCE IVP Last administered on 02/23/20at 23:12; Start 02/23/20 at 23:30; Stop 02/23/20 at 23:31; Status DC Ondansetron HCl (Zofran) 4 mg PRN Q8HRS PRN IV NAUSEA/VOMITING 1ST CHOICE; Start 02/23/20 at 23:00; Stop 02/24/20 at 22:59; Status DC Acetaminophen (Tylenol) 650 mg PRN Q4HRS PRN PO FEVER > 100.3'F; Start 02/23/20 at 23:00; Stop 02/24/20 at 12:22; Status DC Albuterol/ Ipratropium (Duoneb) 3 ml RTQID NEB ; Start 02/24/20 at 08:00; Stop 02/24/20 at 09:21; Status DC Albuterol/ Ipratropium (Duoneb) 3 ml 1X ONCE NEB ; Start 02/23/20 at 23:45; Stop 02/23/20 at 23:46; Status DC Clonidine HCl (Catapres) 0.2 mg 1X ONCE PO Last administered on 02/24/20at 00:47; Start 02/24/20 at 01:00; Stop 02/24/20 at 01:01; Status DC Albuterol/ Ipratropium (Duoneb) 3 ml PRN Q4HRS PRN NEB SHORTNESS OF BREATH; Start 02/24/20 at 09:30; Stop 02/25/20 at 09:29; Status DC Hydralazine HCl (Apresoline Inj) 10 mg PRN Q4HRS PRN IVP ELEVATED BP, SEE COMMENTS; Start 02/24/20 at 09:45; Stop 02/27/20 at 03:42; Status DC Piperacillin Sod/ Tazobactam Sod 3.375 gm/Sodium Chloride 50 ml @ 100 mls/hr Q6HRS IV Last administered on 02/26/20at 05:53; Start 02/24/20 at 12:00; Stop 02/26/20 at 10:11; Status DC Linezolid/Dextrose 300 ml @ 300 mls/hr Q12HR IV Last administered on 02/26/20at 08:55; Start 02/24/20 at 11:00; Stop 02/26/20 at 10:11; Status DC Acetaminophen (Tylenol) 650 mg PRN Q6HRS PRN PO HEADACHE/TEMP Last administered on 03/02/20at 16:41; Start 02/24/20 at 12:15 Aspirin (Ecotrin) 81 mg DAILY PO Last administered on 03/07/20at 08:26; Start 02/25/20 at 09:00 Atorvastatin Calcium (Lipitor) 20 mg QHS PO Last administered on 03/06/20at 19:58; Start 02/24/20 at 21:00 Bupropion HCl (Wellbutrin Sr) 150 mg DAILY PO Last administered on 03/07/20at 08:24; Start 02/25/20 at 09:00 Digoxin (Lanoxin) 125 mcg DAILY PO ; Start 02/25/20 at 09:00; Stop 02/24/20 at 16:58; Status DC Diltiazem HCl (Cardizem 24hr Cd) 300 mg DAILY PO ; Start 02/25/20 at 09:00; St op 02/24/20 at 16:58; Status DC Ergocalciferol (Vitamin D2) 50,000 unit QSA PO Last administered on 03/07/20at 16:38; Start 02/29/20 at 16:00 Fluticasone Propionate (Flonase) 2 spray DAILY NS Last administered on 03/07/20at 08:26; Start 02/25/20 at 09:00 Furosemide (Lasix) 40 mg DAILY PO Last administered on 03/07/20at 08:24; Start 02/25/20 at 09:00 Hydralazine HCl (Apresoline) 25 mg TID PO Last administered on 02/26/20at 08:56; Start 02/24/20 at 14:00; Stop 02/26/20 at 11:53; Status DC Lisinopril (Prinivil) 10 mg DAILY PO ; Start 02/25/20 at 09:00; Stop 02/24/20 at 16:58; Status DC Metoprolol Tartrate (Lopressor) 75 mg BID PO Last administered on 02/26/20at 08:56; Start 02/24/20 at 21:00; Stop 02/26/20 at 16:25; Status DC Warfarin Sodium (Coumadin) 0.5 mg DAILY PO ; Start 02/25/20 at 09:00; Stop 02/24/20 at 13:04; Status DC Warfarin Sodium (Coumadin) 6 mg DAILY16 PO ; Start 02/24/20 at 16:00; Status UNV Insulin Human Lispro (HumaLOG) 15 units TIDWMEALS SQ Last administered on 03/07/20at 16:39; Start 02/24/20 at 17:00 Loperamide HCl (Imodium) 2 mg PRN Q15MIN PRN PO DIARRHEA; Start 02/24/20 at 12:45 Cetirizine HCl (ZyrTEC) 10 mg DAILY PO Last administered on 03/07/20at 08:23; Start 02/25/20 at 09:00 Warfarin Sodium (Coumadin Per Pharmacy) 1 each PRN DAILY PRN MC SEE COMMENTS Last administered on 03/07/20at 11:02; Start 02/24/20 at 12:45 Warfarin Sodium (Coumadin) 4 mg 1X WARF ONCE PO Last administered on 02/24/20at 17:27; Start 02/24/20 at 16:00; Stop 02/24/20 at 16:01; Status DC Furosemide (Lasix) 40 mg 1X ONCE IVP Last administered on 02/24/20at 17:25; Start 02/24/20 at 17:00; Stop 02/24/20 at 17:01; Status DC Digoxin (Lanoxin) 125 mcg DAILY PO Last administered on 02/26/20at 08:57; Start 02/24/20 at 17:00; Stop 02/26/20 at 16:25; Status DC Diltiazem HCl (Cardizem 24hr Cd) 300 mg DAILY PO Last administered on 02/26/20at 08:57; Start 02/24/20 at 17:00; Stop 02/26/20 at 16:25; Status DC Lisinopril (Prinivil) 10 mg DAILY PO Last administered on 02/27/20at 09:02; Start 02/24/20 at 17:00; Stop 02/28/20 at 08:56; Status DC Ondansetron HCl (Zofran) 4 mg PRN Q6HRS PRN IVP NAUSEA/VOMITING Last administered on 02/25/20at 11:41; Start 02/25/20 at 11:30; Stop 02/27/20 at 03:42; Status DC Warfarin Sodium (Coumadin) 6 mg 1X WARF ONCE PO Last administered on 02/25/20at 17:21; Start 02/25/20 at 16:00; Stop 02/25/20 at 16:01; Status DC Lactobacillus Rhamnosus (Culturelle) 1 cap BID PO Last administered on 03/07/20at 08:23; Start 02/25/20 at 21:00 Amoxicillin/ Clavulanate Potassium (Augmentin 875/ 125mg) 1 tab BID PO Last administered on 03/01/20at 20:32; Start 02/26/20 at 21:00; Stop 03/01/20 at 21:59; Status DC Hydralazine HCl (Apresoline) 50 mg TID PO Last administered on 02/26/20at 13:34; Start 02/26/20 at 14:00; Stop 02/26/20 at 16:25; Status DC Zinc Sulfate (Orazinc) 220 mg DAILY PO Last administered on 03/07/20at 08:26; Start 02/27/20 at 09:00 Latanoprost (Xalatan) 1 drop QHS OU Last administered on 03/06/20at 20:00; Start 02/26/20 at 12:45 Diltiazem HCl (Cardizem 24hr Cd) 300 mg DAILYWLUN PO ; Start 02/27/20 at 12:00; Stop 02/28/20 at 08:56; Status DC Hydralazine HCl (Apresoline) 75 mg TID PO Last administered on 03/01/20at 09:14; Start 02/26/20 at 21:00; Stop 03/01/20 at 10:22; Status DC Metoprolol Tartrate (Lopressor) 50 mg BID PO Last administered on 03/07/20 08:26; Start 02/27/20 at 21:00 Amlodipine Besylate (Norvasc) 10 mg DAILY ONCE PO ; Start 02/28/20 at 09:00; Stop 02/27/20 at 11:57; Status DC Nitroglycerin (Nitro-Bid Oint) 1 inch Q6HRS TP Last administered on 03/03/20at 12:16; Start 02/27/20 at 12:00; Stop 03/03/20 at 14:32; Status DC Amlodipine Besylate (Norvasc) 10 mg 1X ONCE PO Last administered on 02/27/20 12:28; Start 02/27/20 at 12:00; Stop 02/27/20 at 12:01; Status DC Ondansetron HCl (Zofran Odt) 4 mg PRN Q6HRS PRN PO NAUSEA/VOMITING Last administered on 02/27/20at 15:08; Start 02/27/20 at 13:15 Prochlorperazine Edisylate (Compazine) 10 mg PRN Q6HRS PRN IM NAUSEA/VOMITING Last administered on 02/29/20at 18:55; Start 02/27/20 at 13:15 Metoprolol Tartrate (Lopressor) 50 mg 1X ONCE PO ; Start 02/27/20 at 14:00; Stop 02/27/20 at 14:01; Status DC Amlodipine Besylate (Norvasc) 10 mg DAILY PO Last administered on 03/07/20 08:26; Start 02/28/20 at 09:00 Warfarin Sodium (Coumadin) 6 mg 1X WARF ONCE PO Last administered on 02/27/20at 15:09; Start 02/27/20 at 16:00; Stop 02/27/20 at 16:01; Status DC Lisinopril (Prinivil) 20 mg DAILY PO Last administered on 02/29/20 08:30; Start 02/28/20 at 09:00; Stop 02/29/20 at 11:28; Status DC Enoxaparin Sodium (Lovenox 80mg Syringe) 80 mg Q12HR SQ Last administered on 5/18/20at 09:12; Start 02/28/20 at 12:15; Stop 03/02/20 at 15:58; Status DC Warfarin Sodium (Coumadin) 9 mg 1X WARF ONCE PO Last administered on 02/28/20at 17:16; Start 02/28/20 at 16:00; Stop 02/28/20 at 16:01; Status DC Warfarin Sodium (Coumadin) 9 mg 1X WARF ONCE PO Last administered on 02/29/20at 16:55; Start 02/29/20 at 16:00; Stop 02/29/20 at 16:01; Status DC Lisinopril (Prinivil) 40 mg DAILY PO Last administered on 03/07/20at 08:24; Start 03/01/20 at 09:00 Lisinopril (Prinivil) 20 mg 1X ONCE PO Last administered on 02/29/20at 14:42; Start 02/29/20 at 12:30; Stop 02/29/20 at 12:31; Status DC Hydralazine HCl (Apresoline) 100 mg TID PO Last administered on 03/07/20at 11:41; Start 03/01/20 at 14:00 Warfarin Sodium (Coumadin) 9 mg 1X WARF ONCE PO Last administered on 03/01/20at 17:59; Start 03/01/20 at 16:00; Stop 03/01/20 at 16:01; Status DC Isosorbide Mononitrate (Imdur) 30 mg DAILY PO Last administered on 03/07/20at 08:25; Start 03/02/20 at 15:00 Warfarin Sodium (Coumadin) 7.5 mg 1X WARF ONCE PO Last administered on 03/02/20at 16:06; Start 03/02/20 at 16:00; Stop 03/02/20 at 16:01; Status DC Ondansetron HCl (Zofran) 4 mg 1X ONCE IM Last administered on 03/02/20at 16:07; Start 03/02/20 at 16:15; Stop 03/02/20 at 16:16; Status DC Warfarin Sodium (Coumadin) 6 mg 1X WARF ONCE PO Last administered on 03/03/20at 16:35; Start 03/03/20 at 16:00; Stop 03/03/20 at 16:01; Status DC Warfarin Sodium (Coumadin) 3 mg 1X WARF ONCE PO Last administered on 03/04/20at 16:54; Start 03/04/20 at 16:00; Stop 03/04/20 at 16:01; Status DC Warfarin Sodium (Coumadin) 3 mg 1X ONCE PO Last administered on 03/05/20at 17:45; Start 03/05/20 at 18:00; Stop 03/05/20 at 18:01; Status DC Warfarin Sodium (Coumadin) 3 mg 1X WARF ONCE PO Last administered on 03/06/20at 16:10; Start 03/06/20 at 16:00; Stop 03/06/20 at 16:01; Status DC Warfarin Sodium (Coumadin) 4 mg 1X WARF ONCE PO Last administered on 03/07/20at 16:37; Start 03/07/20 at 16:00; Stop 03/07/20 at 16:01; Status DC Active Scripts Active Atorvastatin Calcium 20 Mg Tablet 20 Mg PO QHS 30 Days Lisinopril 10 Mg Tablet 10 Mg PO DAILY 30 Days Tylenol (Acetaminophen) 325 Mg Tablet 650 Mg PO PRN Q6HRS PRN 30 Days Coumadin (Warfarin Sodium) 3 Mg Tablet 6 Mg PO DAILY16 30 Days Diltiazem 24HR Cd (Diltiazem Hcl) 300 Mg Cap.er.24h 300 Mg PO DAILY 30 Days Lanoxin (Digoxin) 125 Mcg Tablet 125 Mcg PO DAILY 30 Days [Albuterol Sulfate] 2.5 MG/3 ML Nebu 2.5 Mg NEB PRN Q4HRS PRN Reported Ventolin Hfa Inhaler (Albuterol Sulfate) 18 Gm Hfa.aer.ad 2 Puff INH Q4HRS Combivent Respimat Inhal (Ipratropium/Albuterol Sulfate) 4 Gm Aer.w.adap 2 Inh IH QID Loratadine 10 Mg Tablet 10 Mg PO DAILY Loperamide (Loperamide Hcl) 2 Mg Tablet 2 Mg PO PRN Q4HRS PRN Furosemide 40 Mg Tablet 40 Mg PO DAILY Metoprolol Tartrate 50 Mg Tablet 75 Mg PO BID Warfarin Sodium 1 Mg Tablet 0.5 Mg PO DAILY Hydralazine Hcl 25 Mg Tablet 1 Tab PO TID Wellbutrin Sr (Bupropion Hcl) 150 Mg Tablet.er 150 Mg PO DAILY Novolog (Insulin Aspart) 100 Unit/1 Ml Cartridge 15 Unit SQ TID Aspirin Ec (Aspirin) 81 Mg Tablet.dr 1 Tab PO DAILY Fluticasone Propionate Nasal [place] (Fluticasone Propionate) 16 Gm [place].susp 2 [place] NS DAILY LAST DOSE GIVEN: DATE: 10-13-15 TIME: 9 am NEXT DOSE DUE: DATE: 10-14-15 TIME: 9 am Vitamin D2 (Ergocalciferol (Vitamin D2)) 50,000 Unit Capsule 1 Cap PO QSA Vitals/I & O Vital Sign - Last 24 Hours 03/06/20 03/06/20 03/06/20 03/06/20 19:59 19:59 20:00 23:00 Temp 97.8 97.8 Pulse 88 88 75 Resp 18 B/P (MAP) 122/60 122/60 112/60 (77) Pulse Ox 99 O2 Delivery Nasal Cannula Nasal Cannula O2 Flow Rate 2.0 2.0 03/07/20 03/07/20 03/07/20 03/07/20 03:00 07:00 08:00 08:24 Temp 98.4 97.1 98.4 97.1 Pulse 75 88 88 Resp 19 18 B/P (MAP) 138/70 (92) 164/75 (104) 164/75 Pulse Ox 99 99 O2 Delivery Nasal Cannula Nasal Cannula O2 Flow Rate 2.0 2.0 2.0 03/07/20 03/07/20 03/07/20 03/07/20 08:25 08:25 08:26 08:26 Pulse 88 88 88 88 B/P (MAP) 164/75 164/75 164/75 164/75 03/07/20 03/07/20 03/07/20 11:00 11:41 15:00 Temp 97.6 96.5 97.6 96.5 Pulse 90 90 90 Resp 18 18 B/P (MAP) 134/63 (86) 134/63 134/69 (90) Pulse Ox 93 99 O2 Delivery Nasal Cannula Nasal Cannula O2 Flow Rate 2.0 2.0 Intake and Output 03/06/20 03/06/20 03/07/20 15:00 23:00 07:00 Intake Total 530 ml 256 ml Balance 530 ml 256 ml Nutrition Consultation Dietary Evaluation: Recommendations by RD: Dietary education by RD, Increase Calorie Intake, Protei n supplementation Comments: REC continue ADA/cardiac diet with glucerna tid Expected Outcomes/Goals: to meet >75% est nutrition and fluid needs- goal ongoing Malnutrition Findings: Food and Nutrition Intake (Mod: <75% est energy req 7days Weight Status: Morbidly Obese Fluid Accumulation (Non-Severe: Mild depletion SOCORRO RICKETTS MD March 07, 2020 19:09
[2020-03-07 19:15] VITALS: BP 130/64
[2020-03-07] MEDS: ATORVASTATIN CALCIUM 20 MG TABLET PO SCH (21:20)
[2020-03-07] MEDS: LATANOPROST 0.005% OPHTH SOLUTION 2.5ML BOTTLE. OU SCH (21:20)
[2020-03-07 22:54] VITALS: BP 123/65
[2020-03-08 02:30] VITALS: BP 131/65
[2020-03-08 04:53] LABS: PROTHROMBIN TIME PATIENT 17.2 SEC (11.7-14.0)
[2020-03-08 07:00] VITALS: BP 142/70
[2020-03-08] MEDS: ZINC SULFATE 220 MG CAPSULE. PO SCH (08:05)
[2020-03-08] MEDS: CETIRIZINE HCL 10 MG TABLET. PO SCH (08:05)
[2020-03-08] MEDS: LACTOBACILLUS RHAMNOSUS GG 1 CAPSULE. PO SCH ×2 (08:05→21:04)
[2020-03-08] MEDS: ASPIRIN ENTERIC COATED 81 MG TABLET.DR. PO SCH (08:05)
[2020-03-08] MEDS: buPROPion SR 150 MG TABLET.SA PO SCH (08:06)
[2020-03-08] MEDS: FUROSEMIDE 40 MG TABLET. PO SCH (08:06)
[2020-03-08] MEDS: ISOSORBIDE MONONITRATE ER 30 MG TAB.ER.24H PO SCH (08:06)
[2020-03-08] MEDS: METOPROLOL TART IMMED RELEASE 50 MG TABLET. PO SCH ×2 (08:07→21:05)
[2020-03-08] MEDS: amLODIPine BESYLATE 10 MG TABLET PO SCH (08:08)
[2020-03-08] MEDS: LISINOPRIL 20 MG TABLET PO SCH (08:08)
[2020-03-08] MEDS: INSULIN LISPRO 300 UNITS/3 ML VIAL. SQ SCH ×3 (08:12→17:03)
[2020-03-08] MEDS: FLUTICASONE 50MCG/NASAL SPRAY 16GM BOTTLE. NS SCH (08:13)
--- NOTE | 2020-03-08 10:11 | NUR ---
Jason Mercado of [facility] regarding bed availability, was referred to the admission coordinator Ms. Welsh [phone]. This nurse was told that they will accept the patient tomorrow once bed is available.
[2020-03-08] MEDS: NYSTATIN TOPICAL POWDER 15GM BOTTLE. TP SCH ×2 (10:43→21:04)
[2020-03-08 11:00] VITALS: BP 117/78
--- NOTE | 2020-03-08 11:11 | NUR ---
Pharmacy Warfarin Dosing Note S:Pharmacy consulted to assist with anticoagulation therapy started with target INR: 2 -3 O:MICHAELA COOPER is a 74 year old F with Atrial Fibrillation LABS: Last INR: 1.4 Last HGB: 11.2 Last HCT: 35.4 Last PLT: 297 Last dose of 4 mg given on 03/07/20 at 1637 Vitamin K given: N Drug Interaction Changes: Same Interacting Drug Ongoing Drug Interactions: ASA A:INR of 1.4 is below desired range. Target range for this patient is: 2 -3 P: Warfarin dose: 6 mg Today at 1600 Bridge Therapy: Enoxaparin 1 mg/kg q12h Next INR due 03/09/20. Pharmacy anticoagulation service will continue to follow. LEXY DUMONT RPH, 03/08/20 1111
--- NOTE | 2020-03-08 13:26 | PDOC ---
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 ESR normal COVID +, persistent Hypertension, hyperlipidemia, A fib on chronic anticoagulation, cardiomyopathy, congestive heart failure, chronic obstructive pulmonary disease, diabetes Plan Hold on MRI, risks outweigh benefits in this COVID positive patient. Do MRI in 2 weeks, if still positive then We would not do brain surgery in COVID + patient unless emergent Ophthalmology evaluation as outpatient Check sedimentation rate, may be elevated due to COVID, I doubt she has temporal arteritis Rehabilitation modalities Discussed with daughter regarding this plan Subjective no headache, no complaints Objective Vital Signs Date Time Temp Pulse Resp B/P (MAP) Pulse Ox O2 Delivery O2 Flow Rate FiO2 03/08/20 13:02 82 117/78 03/08/20 11:00 96.7 18 97 Nasal Cannula 2.0 96.7 Intake and Output 03/08/20 07:00 Intake Total 150 ml Output Total 1 ml Balance 149 ml Intake Oral 150 ml Output Urine Total 1 ml # Voids 1 PHYSICAL EXAM Alert. Oriented to time, place and person. PERRL. EOMI. No nystagmus Squints right eye CN: no focal findings. Muscle tone: normal. Muscle strength: 4/5 DTR: 1+ Plantar reflex: flexor Gait: not examined in bed. Sensory exam: no abnormal findings. No cerebellar signs elicited. Review of Relevant I have reviewed the following items raman (where applicable) has been applied. Labs Laboratory Tests Test 03/06/20 15:19 03/07/20 04:30 03/07/20 08:17 03/07/20 11:14 Glucose (Fingerstick) 168 mg/dL (70-99) 131 mg/dL (70-99) 210 mg/dL (70-99) Prothrombin Time 18.7 SEC (11.7-14.0) Prothromb Time International Ratio 1.6 (0.8-1.1) Test 03/07/20 16:20 03/07/20 21:12 03/08/20 04:15 03/08/20 07:56 Glucose (Fingerstick) 151 mg/dL (70-99) 123 mg/dL (70-99) 143 mg/dL (70-99) Prothrombin Time 17.2 SEC (11.7-14.0) Prothromb Time International Ratio 1.4 (0.8-1.1) Test 03/08/20 11:21 Glucose (Fingerstick) 141 mg/dL (70-99) Laboratory Tests Test 03/07/20 16:20 03/07/20 21:12 03/08/20 04:15 03/08/20 07:56 Glucose (Fingerstick) 151 mg/dL (70-99) 123 mg/dL (70-99) 143 mg/dL (70-99) Prothrombin Time 17.2 SEC (11.7-14.0) Prothromb Time International Ratio 1.4 (0.8-1.1) Test 03/08/20 11:21 Glucose (Fingerstick) 141 mg/dL (70-99) Microbiology 02/23/20 Blood Culture - Final, Complete NO GROWTH AFTER 5 DAYS Medications Current Medications Ondansetron HCl (Zofran) 4 mg 1X ONCE IVP Last administered on 02/23/20at 19:43; Start 02/23/20 at 19:45; Stop 02/23/20 at 19:46; Status DC Meclizine HCl (Antivert) 25 mg 1X ONCE PO Last administered on 02/23/20at 19:44; Start 02/23/20 at 19:45; Stop 02/23/20 at 19:46; Status DC Sodium Chloride 1,000 ml @ 1,000 mls/hr Q1H IV Last administered on 02/23/20at 20:14; Start 02/23/20 at 19:28; Stop 02/23/20 at 20:27; Status DC Lorazepam (Ativan Inj) 1 mg 1X ONCE IVP Last administered on 02/23/20at 19:44; Start 02/23/20 at 19:45; Stop 02/23/20 at 19:46; Status DC Hydralazine HCl (Apresoline Inj) 10 mg 1X ONCE IVP Last administered on 02/23/20at 20:14; Start 02/23/20 at 20:00; Stop 02/23/20 at 20:03; Status DC Scopolamine (Transderm-Scop) 1 patch 1X ONCE TD Last administered on 5/10/20at 22:21; Start 02/23/20 at 22:30; Stop 02/23/20 at 22:31; Status DC Ceftriaxone Sodium (Rocephin) 1 gm 1X ONCE IVP Last administered on 02/23/20at 22:27; Start 02/23/20 at 22:30; Stop 02/23/20 at 22:31; Status DC Azithromycin (Zithromax) 500 mg 1X ONCE PO Last administered on 02/23/20at 22:26; Start 02/23/20 at 22:30; Stop 02/23/20 at 22:31; Status DC Hydralazine HCl (Apresoline Inj) 10 mg 1X ONCE IVP Last administered on 02/23/20at 23:12; Start 02/23/20 at 23:30; Stop 02/23/20 at 23:31; Status DC Ondansetron HCl (Zofran) 4 mg PRN Q8HRS PRN IV NAUSEA/VOMITING 1ST CHOICE; Start 02/23/20 at 23:00; Stop 02/24/20 at 22:59; Status DC Acetaminophen (Tylenol) 650 mg PRN Q4HRS PRN PO FEVER > 100.3'F; Start 02/23/20 at 23:00; Stop 02/24/20 at 12:22; Status DC Albuterol/ Ipratropium (Duoneb) 3 ml RTQID NEB ; Start 02/24/20 at 08:00; Stop 02/24/20 at 09:21; Status DC Albuterol/ Ipratropium (Duoneb) 3 ml 1X ONCE NEB ; Start 02/23/20 at 23:45; Stop 02/23/20 at 23:46; Status DC Clonidine HCl (Catapres) 0.2 mg 1X ONCE PO Last administered on 02/24/20at 00:47; Start 02/24/20 at 01:00; Stop 02/24/20 at 01:01; Status DC Albuterol/ Ipratropium (Duoneb) 3 ml PRN Q4HRS PRN NEB SHORTNESS OF BREATH; Start 02/24/20 at 09:30; Stop 02/25/20 at 09:29; Status DC Hydralazine HCl (Apresoline Inj) 10 mg PRN Q4HRS PRN IVP ELEVATED BP, SEE COMMENTS; Start 02/24/20 at 09:45; Stop 02/27/20 at 03:42; Status DC Piperacillin Sod/ Tazobactam Sod 3.375 gm/Sodium Chloride 50 ml @ 100 mls/hr Q6HRS IV Last administered on 02/26/20at 05:53; Start 02/24/20 at 12:00; Stop 02/26/20 at 10:11; Status DC Linezolid/Dextrose 300 ml @ 300 mls/hr Q12HR IV Last administered on 02/26/20at 08:55; Start 02/24/20 at 11:00; Stop 02/26/20 at 10:11; Status DC Acetaminophen (Tylenol) 650 mg PRN Q6HRS PRN PO HEADACHE/TEMP Last administered on 03/02/20at 16:41; Start 02/24/20 at 12:15 Aspirin (Ecotrin) 81 mg DAILY PO Last administered on 03/08/20at 08:05; Start 02/25/20 at 09:00 Atorvastatin Calcium (Lipitor) 20 mg QHS PO Last administered on 03/07/20at 21:20; Start 02/24/20 at 21:00 Bupropion HCl (Wellbutrin Sr) 150 mg DAILY PO Last administered on 03/08/20at 08:06; Start 02/25/20 at 09:00 Digoxin (Lanoxin) 125 mcg DAILY PO ; Start 02/25/20 at 09:00; Stop 02/24/20 at 16:58; Status DC Diltiazem HCl (Cardizem 24hr Cd) 300 mg DAILY PO ; Start 02/25/20 at 09:00; Stop 02/24/20 at 16:58; Status DC Ergocalciferol (Vitamin D2) 50,000 unit QSA PO Last administered on 03/07/20at 16:38; Start 02/29/20 at 16:00 Fluticasone Propionate (Flonase) 2 spray DAILY NS Last administered on 03/08/20at 08:13; Start 02/25/20 at 09:00 Furosemide (Lasix) 40 mg DAILY PO Last administered on 03/08/20at 08:06; Start 02/25/20 at 09:00 Hydralazine HCl (Apresoline) 25 mg TID PO Last administered on 5/13/20at 08:56; Start 02/24/20 at 14:00; Stop 02/26/20 at 11:53; Status DC Lisinopril (Prinivil) 10 mg DAILY PO ; Start 02/25/20 at 09:00; Stop 02/24/20 at 16:58; Status DC Metoprolol Tartrate (Lopressor) 75 mg BID PO Last administered on 02/26/20at 08:56; Start 02/24/20 at 21:00; Stop 02/26/20 at 16:25; Status DC Warfarin Sodium (Coumadin) 0.5 mg DAILY PO ; Start 02/25/20 at 09:00; Stop 02/24/20 at 13:04; Status DC Warfarin Sodium (Coumadin) 6 mg DAILY16 PO ; Start 02/24/20 at 16:00; Status UNV Insulin Human Lispro (HumaLOG) 15 units TIDWMEALS SQ Last administered on 03/08/20at 11:52; Start 02/24/20 at 17:00 Loperamide HCl (Imodium) 2 mg PRN Q15MIN PRN PO DIARRHEA; Start 02/24/20 at 12:45 Cetirizine HCl (ZyrTEC) 10 mg DAILY PO Last administered on 03/08/20at 08:05; Start 02/25/20 at 09:00 Warfarin Sodium (Coumadin Per Pharmacy) 1 each PRN DAILY PRN MC SEE COMMENTS Last administered on 03/08/20at 11:11; Start 02/24/20 at 12:45 Warfarin Sodium (Coumadin) 4 mg 1X WARF ONCE PO Last administered on 02/24/20at 17:27; Start 02/24/20 at 16:00; Stop 02/24/20 at 16:01; Status DC Furosemide (Lasix) 40 mg 1X ONCE IVP Last administered on 02/24/20at 17:25; Start 02/24/20 at 17:00; Stop 02/24/20 at 17:01; Status DC Digoxin (Lanoxin) 125 mcg DAILY PO Last administered on 02/26/20at 08:57; Start 02/24/20 at 17:00; Stop 02/26/20 at 16:25; Status DC Diltiazem HCl (Cardizem 24hr Cd) 300 mg DAILY PO Last administered on 02/26/20at 08:57; Start 02/24/20 at 17:00; Stop 02/26/20 at 16:25; Status DC Lisinopril (Prinivil) 10 mg DAILY PO Last administered on 02/27/20at 09:02; Start 02/24/20 at 17:00; Stop 02/28/20 at 08:56; Status DC Ondansetron HCl (Zofran) 4 mg PRN Q6HRS PRN IVP NAUSEA/VOMITING Last administered on 02/25/20at 11:41; Start 02/25/20 at 11:30; Stop 02/27/20 at 03:42; Status DC Warfarin Sodium (Coumadin) 6 mg 1X WARF ONCE PO Last administered on 02/25/20at 17:21; Start 02/25/20 at 16:00; Stop 02/25/20 at 16:01; Status DC Lactobacillus Rhamnosus (Culturelle) 1 cap BID PO Last administered on 03/08/20at 08:05; Start 02/25/20 at 21:00 Amoxicillin/ Clavulanate Potassium (Augmentin 875/ 125mg) 1 tab BID PO Last administered on 03/01/20at 20:32; Start 02/26/20 at 21:00; Stop 03/01/20 at 21:59; Status DC Hydralazine HCl (Apresoline) 50 mg TID PO Last administered on 02/26/20at 13:34; Start 02/26/20 at 14:00; Stop 02/26/20 at 16:25; Status DC Zinc Sulfate (Orazinc) 220 mg DAILY PO Last administered on 03/08/20at 08:05; Start 02/27/20 at 09:00 Latanoprost (Xalatan) 1 drop QHS OU Last administered on 03/07/20at 21:20; Start 02/26/20 at 12:45 Diltiazem HCl (Cardizem 24hr Cd) 300 mg DAILYWLUN PO ; Start 02/27/20 at 12:00; Stop 02/28/20 at 08:56; Status DC Hydralazine HCl (Apresoline) 75 mg TID PO Last administered on 03/01/20at 09:14; Start 02/26/20 at 21:00; Stop 03/01/20 at 10:22; Status DC Metoprolol Tartrate (Lopressor) 50 mg BID PO Last administered on 03/08/20at 08:07; Start 02/27/20 at 21:00 Amlodipine Besylate (Norvasc) 10 mg DAILY ONCE PO ; Start 02/28/20 at 09:00; Stop 02/27/20 at 11:57; Status DC Nitroglycerin (Nitro-Bid Oint) 1 inch Q6HRS TP Last administered on 03/03/20at 12:16; Start 02/27/20 at 12:00; Stop 03/03/20 at 14:32; Status DC Amlodipine Besylate (Norvasc) 10 mg 1X ONCE PO Last administered on 02/27/20at 12:28; Start 02/27/20 at 12:00; Stop 02/27/20 at 12:01; Status DC Ondansetron HCl (Zofran Odt) 4 mg PRN Q6HRS PRN PO NAUSEA/VOMITING Last administered on 02/27/20at 15:08; Start 02/27/20 at 13:15 Prochlorperazine Edisylate (Compazine) 10 mg PRN Q6HRS PRN IM NAUSEA/VOMITING Last administered on 02/29/20at 18:55; Start 02/27/20 at 13:15 Metoprolol Tartrate (Lopressor) 50 mg 1X ONCE PO ; Start 02/27/20 at 14:00; Stop 02/27/20 at 14:01; Status DC Amlodipine Besylate (Norvasc) 10 mg DAILY PO Last administered on 03/08/20at 08:08; Start 02/28/20 at 09:00 Warfarin Sodium (Coumadin) 6 mg 1X WARF ONCE PO Last administered on 02/27/20at 15:09; Start 02/27/20 at 16:00; Stop 02/27/20 at 16:01; Status DC Lisinopril (Prinivil) 20 mg DAILY PO Last administered on 02/29/20at 08:30; Start 02/28/20 at 09:00; Stop 02/29/20 at 11:28; Status DC Enoxaparin Sodium (Lovenox 80mg Syringe) 80 mg Q12HR SQ Last administered on 03/02/20at 09:12; Start 02/28/20 at 12:15; Stop 03/02/20 at 15:58; Status DC Warfarin Sodium (Coumadin) 9 mg 1X WARF ONCE PO Last administered on 02/28/20at 17:16; Start 02/28/20 at 16:00; Stop 02/28/20 at 16:01; Status DC Warfarin Sodium (Coumadin) 9 mg 1X WARF ONCE PO Last administered on 02/29/20at 16:55; Start 02/29/20 at 16:00; Stop 02/29/20 at 16:01; Status DC Lisinopril (Prinivil) 40 mg DAILY PO Last administered on 03/08/20at 08:08; Start 03/01/20 at 09:00 Lisinopril (Prinivil) 20 mg 1X ONCE PO Last administered on 02/29/20at 14:42; Start 02/29/20 at 12:30; Stop 02/29/20 at 12:31; Status DC Hydralazine HCl (Apresoline) 100 mg TID PO Last administered on 03/08/20at 13:02; Start 03/01/20 at 14:00 Warfarin Sodium (Coumadin) 9 mg 1X WARF ONCE PO Last administered on 03/01/20at 17:59; Start 03/01/20 at 16:00; Stop 03/01/20 at 16:01; Status DC Isosorbide Mononitrate (Imdur) 30 mg DAILY PO Last administered on 03/08/20at 08:06; Start 03/02/20 at 15:00 Warfarin Sodium (Coumadin) 7.5 mg 1X WARF ONCE PO Last administered on 03/02/20at 16:06; Start 03/02/20 at 16:00; Stop 03/02/20 at 16:01; Status DC Ondansetron HCl (Zofran) 4 mg 1X ONCE IM Last administered on 03/02/20at 16:07; Start 03/02/20 at 16:15; Stop 03/02/20 at 16:16; Status DC Warfarin Sodium (Coumadin) 6 mg 1X WARF ONCE PO Last administered on 03/03/20at 16:35; Start 03/03/20 at 16:00; Stop 03/03/20 at 16:01; Status DC Warfarin Sodium (Coumadin) 3 mg 1X WARF ONCE PO Last administered on 03/04/20at 16:54; Start 03/04/20 at 16:00; Stop 03/04/20 at 16:01; Status DC Warfarin Sodium (Coumadin) 3 mg 1X ONCE PO Last administered on 03/05/20at 17:45; Start 03/05/20 at 18:00; Stop 03/05/20 at 18:01; Status DC Warfarin Sodium (Coumadin) 3 mg 1X WARF ONCE PO Last administered on 03/06/20at 16:10; Start 03/06/20 at 16:00; Stop 03/06/20 at 16:01; Status DC Warfarin Sodium (Coumadin) 4 mg 1X WARF ONCE PO Last administered on 03/07/20at 16:37; Start 03/07/20 at 16:00; Stop 03/07/20 at 16:01; Status DC Nystatin (Nystop) 1 linda BID TP Last administered on 03/08/20at 10:43; Start 03/08/20 at 11:00 Enoxaparin Sodium (Lovenox 120mg Syringe) 120 mg Q12HR SQ Last administered on 03/08/20at 11:50; Start 03/08/20 at 12:00 Warfarin Sodium (Coumadin) 6 mg 1X WARF ONCE PO ; Start 03/08/20 at 16:00; Stop 03/08/20 at 16:01 Active Scripts Active Atorvastatin Calcium 20 Mg Tablet 20 Mg PO QHS 30 Days Lisinopril 10 Mg Tablet 10 Mg PO DAILY 30 Days Tylenol (Acetaminophen) 325 Mg Tablet 650 Mg PO PRN Q6HRS PRN 30 Days Coumadin (Warfarin Sodium) 3 Mg Tablet 6 Mg PO DAILY16 30 Days Diltiazem 24HR Cd (Diltiazem Hcl) 300 Mg Cap.er.24h 300 Mg PO DAILY 30 Days Lanoxin (Digoxin) 125 Mcg Tablet 125 Mcg PO DAILY 30 Days [Albuterol Sulfate] 2.5 MG/3 ML Nebu 2.5 Mg NEB PRN Q4HRS PRN Reported Ventolin Hfa Inhaler (Albuterol Sulfate) 18 Gm Hfa.aer.ad 2 Puff INH Q4HRS Combivent Respimat Inhal (Ipratropium/Albuterol Sulfate) 4 Gm Aer.w.adap 2 Inh IH QID Loratadine 10 Mg Tablet 10 Mg PO DAILY Loperamide (Loperamide Hcl) 2 Mg Tablet 2 Mg PO PRN Q4HRS PRN Furosemide 40 Mg Tablet 40 Mg PO DAILY Metoprolol Tartrate 50 Mg Tablet 75 Mg PO BID Warfarin Sodium 1 Mg Tablet 0.5 Mg PO DAILY Hydralazine Hcl 25 Mg Tablet 1 Tab PO TID Wellbutrin Sr (Bupropion Hcl) 150 Mg Tablet.er 150 Mg PO DAILY Novolog (Insulin Aspart) 100 Unit/1 Ml Cartridge 15 Unit SQ TID Aspirin Ec (Aspirin) 81 Mg Tablet.dr 1 Tab PO DAILY Fluticasone Propionate Nasal [place] (Fluticasone Propionate) 16 Gm [place].susp 2 [place] NS DAILY LAST DOSE GIVEN: DATE: 10-13-15 TIME: 9 am NEXT DOSE DUE: DATE: 10-14-15 TIME: 9 am Vitamin D2 (Ergocalciferol (Vitamin D2)) 50,000 Unit Capsule 1 Cap PO QSA Vitals/I & O Vital Sign - Last 24 Hours 03/07/20 03/07/20 03/07/20 03/07/20 15:00 19:15 20:05 21:21 Temp 96.5 97.5 96.5 97.5 Pulse 90 83 Resp 18 18 B/P (MAP) 134/69 (90) 130/64 (86) 130/64 Pulse Ox 99 100 O2 Delivery Nasal Cannula Nasal Cannula Nasal Cannula O2 Flow Rate 2.0 2.0 2.0 03/07/20 03/07/20 03/08/20 03/08/20 21:21 22:54 02:30 07:00 Temp 97.9 97.2 97.7 97.9 97.2 97.7 Pulse 74 89 92 Resp 18 19 19 B/P (MAP) 130/64 123/65 (84) 131/65 (87) 142/70 (94) Pulse Ox 99 100 97 O2 Delivery Nasal Cannula Nasal Cannula Nasal Cannula O2 Flow Rate 2.0 2.0 2.0 03/08/20 03/08/20 03/08/20 03/08/20 08:00 08:06 08:07 08:08 Pulse 92 92 92 B/P (MAP) 142/70 142/70 142/70 O2 Delivery Nasal Cannula O2 Flow Rate 2.0 03/08/20 03/08/20 03/08/20 03/08/20 08:08 08:09 11:00 13:02 Temp 96.7 96.7 Pulse 92 92 82 82 Resp 18 B/P (MAP) 142/70 142/70 117/78 (91) 117/78 Pulse Ox 97 O2 Delivery Nasal Cannula O2 Flow Rate 2.0 Intake and Output 03/07/20 03/07/20 03/08/20 15:00 23:00 07:00 Intake Total 150 ml Output Total 1 ml Balance 150 ml -1 ml JUNITO JOHNSTON MD March 08, 2020 13:26
--- NOTE | 2020-03-08 14:00 | PDOC ---
PROGRESS NOTES Chief Complaint Chief Complaint A/P: Coronavirus infection Cough - with shortness of breath. Secondary to acute COPD exacerbation. Improved Diarrhea - will monitor, psyllium HTN - cont meds Hyperlipidemia - cont statin AFIB - on BB and coumadin, will continue, monitor INR CHF - unknown if ischemic cardiomyopathy, seems compensated currently Acute exacerbation of COPD - as above Depression - cont meds DM2 - basal bolus plus insulin while inpatient Visual blurring - likely glaucoma, difficult to test pressure here, currently on lananoprost (prostaglandin) daily, seems to have improved her vision but not recovered completely. Will need outpatient formal ophtalmological evaluation once she recovers from her covid 19 infection. 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 Cerebral chronic ischemic microvascular changes Left basal ganglia lacunar infarct FEN - ADA diet PPX - lovenox FULL CODE Dispo -inpatient rehab when bed available, [facility] reported to nursing staff most likely will be in the am since they dont have discharges scheduled for today History of Present Illness History of Present Illness Ms Yang is a 74 yo F resident of [facility] assisted living [facility] w/ PMHx HTN, Hyperlipidemia, AFIB, valvular insufficiency, CHF, cardiomyopathy, COPD, Depression, DM2 who p/w cough, shortness of breath, diarrhea for the last 3-4 days. was recently tested for COVID-19 and was positive. Now, she has nausea, vomiting, and diarrhea. She has some associated dizziness. This has been occurring off and on for a few days, worse with moving, better with sitting still. She gets fatigued easily. Her dizziness worsens with change in position. She has underlying COPD, but states her shortness of breath is worse. While in the ER, she is noted to have a low-grade temperature of 100.5. She also has a mild white count elevation 13K. Chest x-ray is showing a possible atypical pneumonia. Was called for admission for further treatment In ED noted in afib, normal troponin. CXR with no acute findings. BNP 1212, K 5.2, Cr 1.1, glucose 173. Admitted for further care of Hypertensive urgency. Chest x-ray showed bilateral diffuse interstitial infiltrate and cardiomegaly. The patient received Rocephin and azithromycin 1 dose each from the ER. 02/24: States her breathing is okay, although she is normally not on oxygen. She is requiring 3 L of oxygen. Denies now any nausea, vomiting, or diarrhea which she has had, she says. Denies any abdominal pain, urinary symptoms, headache, or visual symptoms. 02/25: She is complaining blurred vision in her right eye today. No focal neurologic deficits otherwise. She lost IV access, has been converted to p.o. antibiotics and p.o. antihypertensives. 02/26: Overnight bradycardic, metoprolol had been increased to 75 mg, now reduced to 25 mg twice daily, still has Cardizem 300 mg daily. Lost IV access. SBP 198 today. HR in the 80s. Still feels very weak. 02/27: BP better controlled. On amlodipine 10 mg, lisinopril 20 mg, metoprolol. Still hypoxic still very weak still with some right eye blurring. She says she feels terrible and tired. 02/28: Overnight no events. Afebrile BP better controlled. Still hypoxic. Still with blurred vision in her right eye. Still dizzy and nauseated. 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 Neuro consult. 03/01: Overnight no events. Afebrile. BP controlled. Still hypoxic. Uncoordination and right visual blurring persist. CT results concerning for possible right cerebellar mass and left basal ganglia infarct. 03/02: Neurology cardiology clinical consultant recommendations greatly appreciated. Continue with current treatment plan in light of his slow improvement, holding off on doing MRI given the stability of her clinical picture. 03/03: Patient from the neurosurgical standpoint of view according to nursing staff is okay to be dismissed despite not having an MRI which can be done in the outpatient setting, patient seems to be not progressing much we will continue to monitor for the next 24 hours 03/04: Patient overall stable, contacted my CM regarding nursing staff concerns about patient's dizziness. we will observe for 24 hours. Neuro cardiology clinical consultant should be back in the am hopefully will discharge soon 03/05: Patient continues to be quite dizzy, the patient lives in assisted living facility and physical therapy has recommended inpatient rehab for her discharge. We have requested 80 from case management in order to manage her disposition at this point. 03/06: No acute events reported overnight, case discussed with nursing staff patient in no acute distress no complaints during my visit 03/07: No acute events reported overnight, case discussed with nursing staff patient in no acute distress no complaints during my visit, physical therapy evaluated patient today, awaiting for available bed at acute rehab facility Plan: Will add lovenox, suptherapeutic INR. Monitor BP Rehab modalities Formal visual examination, no clear signs of increased ocular pressure, Vitals Vitals Vital Signs Date Time Temp Pulse Resp B/P (MAP) Pulse Ox O2 Delivery O2 Flow Rate FiO2 03/08/20 13:02 82 117/78 03/08/20 11:00 96.7 18 97 Nasal Cannula 2.0 96.7 Physical Exam Physical Exam GENERAL: Alert, oriented female, not in any distress. Coop HEENT: Both pupils are round and reacting. No conjunctival lesion, no lesion in the mouth. NECK: Supple, no JVP, no lymphadenopathy. LUNGS: Clear. HEART: S1, S2 regular. ABDOMEN: Benign. EXTREMITIES: No edema or cyanosis. SKIN: Unremarkable. NEUROLOGIC: The patient is alert, awake, and appropriate. No focal neurologic deficit. Lungs: Clear Labs LABS Laboratory Tests Test 03/07/20 16:20 03/07/20 21:12 03/08/20 04:15 03/08/20 07:56 Glucose (Fingerstick) 151 mg/dL (70-99) 123 mg/dL (70-99) 143 mg/dL (70-99) Prothrombin Time 17.2 SEC (11.7-14.0) Prothromb Time International Ratio 1.4 (0.8-1.1) Test 03/08/20 11:21 Glucose (Fingerstick) 141 mg/dL (70-99) Assessment and Plan Assessmemt and Plan Problems Medical Problems: (1) COVID-19 Status: Acute (2) Hypertensive urgency Status: Acute (3) Pneumonia Status: Acute (4) Vertigo Status: Acute Comment Review of Relevant I have reviewed the following items raman (where applicable) has been applied. Labs Laboratory Tests Test 03/06/20 15:19 03/07/20 04:30 03/07/20 08:17 03/07/20 11:14 Glucose (Fingerstick) 168 mg/dL (70-99) 131 mg/dL (70-99) 210 mg/dL (70-99) Prothrombin Time 18.7 SEC (11.7-14.0) Prothromb Time International Ratio 1.6 (0.8-1.1) Test 03/07/20 16:20 03/07/20 21:12 03/08/20 04:15 03/08/20 07:56 Glucose (Fingerstick) 151 mg/dL (70-99) 123 mg/dL (70-99) 143 mg/dL (70-99) Prothrombin Time 17.2 SEC (11.7-14.0) Prothromb Time International Ratio 1.4 (0.8-1.1) Test 03/08/20 11:21 Glucose (Fingerstick) 141 mg/dL (70-99) Laboratory Tests Test 03/07/20 16:20 03/07/20 21:12 03/08/20 04:15 03/08/20 07:56 Glucose (Fingerstick) 151 mg/dL (70-99) 123 mg/dL (70-99) 143 mg/dL (70-99) Prothrombin Time 17.2 SEC (11.7-14.0) Prothromb Time International Ratio 1.4 (0.8-1.1) Test 03/08/20 11:21 Glucose (Fingerstick) 141 mg/dL (70-99) Microbiology 02/23/20 Blood Culture - Final, Complete NO GROWTH AFTER 5 DAYS Medications Current Medications Ondansetron HCl (Zofran) 4 mg 1X ONCE IVP Last administered on 02/23/20at 19:43; Start 02/23/20 at 19:45; Stop 02/23/20 at 19:46; Status DC Meclizine HCl (Antivert) 25 mg 1X ONCE PO Last administered on 02/23/20at 19:44; Start 02/23/20 at 19:45; Stop 02/23/20 at 19:46; Status DC Sodium Chloride 1,000 ml @ 1,000 mls/hr Q1H IV Last administered on 02/23/20at 20:14; Start 02/23/20 at 19:28; Stop 02/23/20 at 20:27; Status DC Lorazepam (Ativan Inj) 1 mg 1X ONCE IVP Last administered on 02/23/20at 19:44; Start 02/23/20 at 19:45; Stop 02/23/20 at 19:46; Status DC Hydralazine HCl (Apresoline Inj) 10 mg 1X ONCE IVP Last administered on 02/23/20at 20:14; Start 02/23/20 at 20:00; Stop 02/23/20 at 20:03; Status DC Scopolamine (Transderm-Scop) 1 patch 1X ONCE TD Last administered on 02/23/20at 22:21; Start 02/23/20 at 22:30; Stop 02/23/20 at 22:31; Status DC Ceftriaxone Sodium (Rocephin) 1 gm 1X ONCE IVP Last administered on 02/23/20at 22:27; Start 02/23/20 at 22:30; Stop 02/23/20 at 22:31; Status DC Azithromycin (Zithromax) 500 mg 1X ONCE PO Last administered on 02/23/20at 22:26; Start 02/23/20 at 22:30; Stop 02/23/20 at 22:31; Status DC Hydralazine HCl (Apresoline Inj) 10 mg 1X ONCE IVP Last administered on 02/23/20at 23:12; Start 02/23/20 at 23:30; Stop 02/23/20 at 23:31; Status DC Ondansetron HCl (Zofran) 4 mg PRN Q8HRS PRN IV NAUSEA/VOMITING 1ST CHOICE; Start 02/23/20 at 23:00; Stop 02/24/20 at 22:59; Status DC Acetaminophen (Tylenol) 650 mg PRN Q4HRS PRN PO FEVER > 100.3'F; Start 02/23/20 at 23:00; Stop 02/24/20 at 12:22; Status DC Albuterol/ Ipratropium (Duoneb) 3 ml RTQID NEB ; Start 02/24/20 at 08:00; Stop 02/24/20 at 09:21; Status DC Albuterol/ Ipratropium (Duoneb) 3 ml 1X ONCE NEB ; Start 02/23/20 at 23:45; Stop 02/23/20 at 23:46; Status DC Clonidine HCl (Catapres) 0.2 mg 1X ONCE PO Last administered on 02/24/20at 00:47; Start 02/24/20 at 01:00; Stop 02/24/20 at 01:01; Status DC Albuterol/ Ipratropium (Duoneb) 3 ml PRN Q4HRS PRN NEB SHORTNESS OF BREATH; Start 02/24/20 at 09:30; Stop 02/25/20 at 09:29; Status DC Hydralazine HCl (Apresoline Inj) 10 mg PRN Q4HRS PRN IVP ELEVATED BP, SEE COMMENTS; Start 02/24/20 at 09:45; Stop 02/27/20 at 03:42; Status DC Piperacillin Sod/ Tazobactam Sod 3.375 gm/Sodium Chloride 50 ml @ 100 mls/hr Q6HRS IV Last administered on 02/26/20at 05:53; Start 02/24/20 at 12:00; Stop 02/26/20 at 10:11; Status DC Linezolid/Dextrose 300 ml @ 300 mls/hr Q12HR IV Last administered on 02/26/20at 08:55; Start 02/24/20 at 11:00; Stop 02/26/20 at 10:11; Status DC Acetaminophen (Tylenol) 650 mg PRN Q6HRS PRN PO HEADACHE/TEMP Last administered on 03/02/20at 16:41; Start 02/24/20 at 12:15 Aspirin (Ecotrin) 81 mg DAILY PO Last administered on 03/08/20at 08:05; Start 02/25/20 at 09:00 Atorvastatin Calcium (Lipitor) 20 mg QHS PO Last administered on 03/07/20at 21:20; Start 02/24/20 at 21:00 Bupropion HCl (Wellbutrin Sr) 150 mg DAILY PO Last administered on 03/08/20at 08:06; Start 02/25/20 at 09:00 Digoxin (Lanoxin) 125 mcg DAILY PO ; Start 02/25/20 at 09:00; Stop 02/24/20 at 16:58; Status DC Diltiazem HCl (Cardizem 24hr Cd) 300 mg DAILY PO ; Start 02/25/20 at 09:00; Stop 02/24/20 at 16:58; Status DC Ergocalciferol (Vitamin D2) 50,000 unit QSA PO Last administered on 03/07/20at 16:38; Start 02/29/20 at 16:00 Fluticasone Propionate (Flonase) 2 spray DAILY NS Last administered on 03/08/20at 08:13; Start 02/25/20 at 09:00 Furosemide (Lasix) 40 mg DAILY PO Last administered on 03/08/20at 08:06; Start 02/25/20 at 09:00 Hydralazine HCl (Apresoline) 25 mg TID PO Last administered on 02/26/20at 08:56; Start 02/24/20 at 14:00; Stop 02/26/20 at 11:53; Status DC Lisinopril (Prinivil) 10 mg DAILY PO ; Start 02/25/20 at 09:00; Stop 02/24/20 at 16:58; Status DC Metoprolol Tartrate (Lopressor) 75 mg BID PO Last administered on 02/26/20at 08:56; Start 02/24/20 at 21:00; Stop 02/26/20 at 16:25; Status DC Warfarin Sodium (Coumadin) 0.5 mg DAILY PO ; Start 02/25/20 at 09:00; Stop 02/24/20 at 13:04; Status DC Warfarin Sodium (Coumadin) 6 mg DAILY16 PO ; Start 02/24/20 at 16:00; Status UNV Insulin Human Lispro (HumaLOG) 15 units TIDWMEALS SQ Last administered on 03/08/20at 11:52; Start 02/24/20 at 17:00 Loperamide HCl (Imodium) 2 mg PRN Q15MIN PRN PO DIARRHEA; Start 02/24/20 at 12:45 Cetirizine HCl (ZyrTEC) 10 mg DAILY PO Last administered on 03/08/20at 08:05; Start 02/25/20 at 09:00 Warfarin Sodium (Coumadin Per Pharmacy) 1 each PRN DAILY PRN MC SEE COMMENTS Last administered on 03/08/20at 11:11; Start 02/24/20 at 12:45 Warfarin Sodium (Coumadin) 4 mg 1X WARF ONCE PO Last administered on 02/24/20at 17:27; Start 02/24/20 at 16:00; Stop 02/24/20 at 16:01; Status DC Furosemide (Lasix) 40 mg 1X ONCE IVP Last administered on 02/24/20at 17:25; Start 02/24/20 at 17:00; Stop 02/24/20 at 17:01; Status DC Digoxin (Lanoxin) 125 mcg DAILY PO Last administered on 02/26/20at 08:57; Start 02/24/20 at 17:00; Stop 02/26/20 at 16:25; Status DC Diltiazem HCl (Cardizem 24hr Cd) 300 mg DAILY PO Last administered on 02/26/20at 08:57; Start 02/24/20 at 17:00; Stop 02/26/20 at 16:25; Status DC Lisinopril (Prinivil) 10 mg DAILY PO Last administered on 02/27/20at 09:02; Start 02/24/20 at 17:00; Stop 02/28/20 at 08:56; Status DC Ondansetron HCl (Zofran) 4 mg PRN Q6HRS PRN IVP NAUSEA/VOMITING Last administered on 02/25/20at 11:41; Start 02/25/20 at 11:30; Stop 02/27/20 at 03:42; Status DC Warfarin Sodium (Coumadin) 6 mg 1X WARF ONCE PO Last administered on 02/25/20at 17:21; Start 02/25/20 at 16:00; Stop 02/25/20 at 16:01; Status DC Lactobacillus Rhamnosus (Culturelle) 1 cap BID PO Last administered on 03/08/20at 08:05; Start 02/25/20 at 21:00 Amoxicillin/ Clavulanate Potassium (Augmentin 875/ 125mg) 1 tab BID PO Last administered on 03/01/20at 20:32; Start 02/26/20 at 21:00; Stop 03/01/20 at 21:59; Status DC Hydralazine HCl (Apresoline) 50 mg TID PO Last administered on 02/26/20at 13:34; Start 02/26/20 at 14:00; Stop 02/26/20 at 16:25; Status DC Zinc Sulfate (Orazinc) 220 mg DAILY PO Last administered on 03/08/20at 08:05; Start 02/27/20 at 09:00 Latanoprost (Xalatan) 1 drop QHS OU Last administered on 03/07/20at 21:20; Start 02/26/20 at 12:45 Diltiazem HCl (Cardizem 24hr Cd) 300 mg DAILYWLUN PO ; Start 02/27/20 at 12:00; Stop 02/28/20 at 08:56; Status DC Hydralazine HCl (Apresoline) 75 mg TID PO Last administered on 03/01/20at 09:14; Start 02/26/20 at 21:00; Stop 03/01/20 at 10:22; Status DC Metoprolol Tartrate (Lopressor) 50 mg BID PO Last administered on 03/08/20at 08:07; Start 02/27/20 at 21:00 Amlodipine Besylate (Norvasc) 10 mg DAILY ONCE PO ; Start 02/28/20 at 09:00; Stop 02/27/20 at 11:57; Status DC Nitroglycerin (Nitro-Bid Oint) 1 inch Q6HRS TP Last administered on 03/03/20at 12:16; Start 02/27/20 at 12:00; Stop 03/03/20 at 14:32; Status DC Amlodipine Besylate (Norvasc) 10 mg 1X ONCE PO Last administered on 02/27/20at 12:28; Start 02/27/20 at 12:00; Stop 02/27/20 at 12:01; Status DC Ondansetron HCl (Zofran Odt) 4 mg PRN Q6HRS PRN PO NAUSEA/VOMITING Last administered on 02/27/20at 15:08; Start 02/27/20 at 13:15 Prochlorperazine Edisylate (Compazine) 10 mg PRN Q6HRS PRN IM NAUSEA/VOMITING Last administered on 02/29/20at 18:55; Start 02/27/20 at 13:15 Metoprolol Tartrate (Lopressor) 50 mg 1X ONCE PO ; Start 02/27/20 at 14:00; Stop 02/27/20 at 14:01; Status DC Amlodipine Besylate (Norvasc) 10 mg DAILY PO Last administered on 03/08/20at 08:08; Start 02/28/20 at 09:00 Warfarin Sodium (Coumadin) 6 mg 1X WARF ONCE PO Last administered on 02/27/20at 15:09; Start 02/27/20 at 16:00; Stop 02/27/20 at 16:01; Status DC Lisinopril (Prinivil) 20 mg DAILY PO Last administered on 02/29/20 08:30; Start 02/28/20 at 09:00; Stop 02/29/20 at 11:28; Status DC Enoxaparin Sodium (Lovenox 80mg Syringe) 80 mg Q12HR SQ Last administered on 03/02/20at 09:12; Start 02/28/20 at 12:15; Stop 03/02/20 at 15:58; Status DC Warfarin Sodium (Coumadin) 9 mg 1X WARF ONCE PO Last administered on 02/28/20at 17:16; Start 02/28/20 at 16:00; Stop 02/28/20 at 16:01; Status DC Warfarin Sodium (Coumadin) 9 mg 1X WARF ONCE PO Last administered on 02/29/20at 16:55; Start 02/29/20 at 16:00; Stop 02/29/20 at 16:01; Status DC Lisinopril (Prinivil) 40 mg DAILY PO Last administered on 03/08/20at 08:08; Start 03/01/20 at 09:00 Lisinopril (Prinivil) 20 mg 1X ONCE PO Last administered on 02/29/20at 14:42; Start 02/29/20 at 12:30; Stop 02/29/20 at 12:31; Status DC Hydralazine HCl (Apresoline) 100 mg TID PO Last administered on 03/08/20 13:02; Start 03/01/20 at 14:00 Warfarin Sodium (Coumadin) 9 mg 1X WARF ONCE PO Last administered on 03/01/20at 17:59; Start 03/01/20 at 16:00; Stop 03/01/20 at 16:01; Status DC Isosorbide Mononitrate (Imdur) 30 mg DAILY PO Last administered on 03/08/20at 08:06; Start 03/02/20 at 15:00 Warfarin Sodium (Coumadin) 7.5 mg 1X WARF ONCE PO Last administered on 03/02/20at 16:06; Start 03/02/20 at 16:00; Stop 03/02/20 at 16:01; Status DC Ondansetron HCl (Zofran) 4 mg 1X ONCE IM Last administered on 03/02/20at 16:07; Start 03/02/20 at 16:15; Stop 03/02/20 at 16:16; Status DC Warfarin Sodium (Coumadin) 6 mg 1X WARF ONCE PO Last administered on 03/03/20at 16:35; Start 03/03/20 at 16:00; Stop 03/03/20 at 16:01; Status DC Warfarin Sodium (Coumadin) 3 mg 1X WARF ONCE PO Last administered on 03/04/20at 16:54; Start 03/04/20 at 16:00; Stop 03/04/20 at 16:01; Status DC Warfarin Sodium (Coumadin) 3 mg 1X ONCE PO Last administered on 03/05/20at 17:45; Start 03/05/20 at 18:00; Stop 03/05/20 at 18:01; Status DC Warfarin Sodium (Coumadin) 3 mg 1X WARF ONCE PO Last administered on 03/06/20at 16:10; Start 03/06/20 at 16:00; Stop 03/06/20 at 16:01; Status DC Warfarin Sodium (Coumadin) 4 mg 1X WARF ONCE PO Last administered on 03/07/20at 16:37; Start 03/07/20 at 16:00; Stop 03/07/20 at 16:01; Status DC Nystatin (Nystop) 1 linda BID TP Last administered on 03/08/20at 10:43; Start 03/08/20 at 11:00 Enoxaparin Sodium (Lovenox 120mg Syringe) 120 mg Q12HR SQ Last administered on 03/08/20at 11:50; Start 03/08/20 at 12:00 Warfarin Sodium (Coumadin) 6 mg 1X WARF ONCE PO ; Start 03/08/20 at 16:00; Stop 03/08/20 at 16:01 Active Scripts Active Atorvastatin Calcium 20 Mg Tablet 20 Mg PO QHS 30 Days Lisinopril 10 Mg Tablet 10 Mg PO DAILY 30 Days Tylenol (Acetaminophen) 325 Mg Tablet 650 Mg PO PRN Q6HRS PRN 30 Days Coumadin (Warfarin Sodium) 3 Mg Tablet 6 Mg PO DAILY16 30 Days Diltiazem 24HR Cd (Diltiazem Hcl) 300 Mg Cap.er.24h 300 Mg PO DAILY 30 Days Lanoxin (Digoxin) 125 Mcg Tablet 125 Mcg PO DAILY 30 Days [Albuterol Sulfate] 2.5 MG/3 ML Nebu 2.5 Mg NEB PRN Q4HRS PRN Reported Ventolin Hfa Inhaler (Albuterol Sulfate) 18 Gm Hfa.aer.ad 2 Puff INH Q4HRS Combivent Respimat Inhal (Ipratropium/Albuterol Sulfate) 4 Gm Aer.w.adap 2 Inh IH QID Loratadine 10 Mg Tablet 10 Mg PO DAILY Loperamide (Loperamide Hcl) 2 Mg Tablet 2 Mg PO PRN Q4HRS PRN Furosemide 40 Mg Tablet 40 Mg PO DAILY Metoprolol Tartrate 50 Mg Tablet 75 Mg PO BID Warfarin Sodium 1 Mg Tablet 0.5 Mg PO DAILY Hydralazine Hcl 25 Mg Tablet 1 Tab PO TID Wellbutrin Sr (Bupropion Hcl) 150 Mg Tablet.er 150 Mg PO DAILY Novolog (Insulin Aspart) 100 Unit/1 Ml Cartridge 15 Unit SQ TID Aspirin Ec (Aspirin) 81 Mg Tablet.dr 1 Tab PO DAILY Fluticasone Propionate Nasal [place] (Fluticasone Propionate) 16 Gm [place].susp 2 [place] NS DAILY LAST DOSE GIVEN: DATE: 10-13-15 TIME: 9 am NEXT DOSE DUE: DATE: 10-14-15 TIME: 9 am Vitamin D2 (Ergocalciferol (Vitamin D2)) 50,000 Unit Capsule 1 Cap PO QSA Vitals/I & O Vital Sign - Last 24 Hours 03/07/20 03/07/20 03/07/20 03/07/20 15:00 19:15 20:05 21:21 Temp 96.5 97.5 96.5 97.5 Pulse 90 83 Resp B/P (MAP) 134/69 (90) 130/64 (86) 130/64 Pulse Ox 99 100 O2 Delivery Nasal Cannula Nasal Cannula Nasal Cannula O2 Flow Rate 2.0 2.0 2.0 03/07/20 03/07/20 03/08/20 03/08/20 21:21 22:54 02:30 07:00 Temp 97.9 97.2 97.7 97.9 97.2 97.7 Pulse 74 89 92 Resp 18 B/P (MAP) 130/64 123/65 (84) 131/65 (87) 142/70 (94) Pulse Ox 99 100 97 O2 Delivery Nasal Cannula Nasal Cannula Nasal Cannula O2 Flow Rate 2.0 2.0 2.0 03/08/20 03/08/20 03/08/2024/20 08:00 08:06 08:07 08:08 Pulse 92 92 92 B/P (MAP) 142/70 142/70 142/70 O2 Delivery Nasal Cannula O2 Flow Rate 2.0 03/08/20 03/08/20 03/08/20 03/08/20 08:08 08:09 11:00 13:02 Temp 96.7 96.7 Pulse 92 92 82 82 Resp 18 B/P (MAP) 142/70 142/70 117/78 (91) 117/78 Pulse Ox 97 O2 Delivery Nasal Cannula O2 Flow Rate 2.0 Intake and Output 03/07/20 03/07/20 03/08/20 15:00 23:00 07:00 Intake Total 150 ml Output Total 1 ml Balance 150 ml -1 ml Nutrition Consultation Dietary Evaluation: Recommendations by RD: Dietary education by RD, Increase Calorie Intake, Protein supplementation Comments: REC continue ADA/cardiac diet with glucerna tid Expected Outcomes/Goals: to meet >75% est nutrition and fluid needs- goal ongoing Malnutrition Findings: Food and Nutrition Intake (Mod: <75% est energy req 7days Weight Status: Morbidly Obese Fluid Accumulation (Non-Severe: Mild depletion SOCORRO RICKETTS MD March 08, 2020 14:00
[2020-03-08 15:00] VITALS: BP 113/65
[2020-03-08] MEDS ORDERED: WARFARIN 3 MG TABLET. PO ONE (16:00)
[2020-03-08 19:00] VITALS: BP 119/58
[2020-03-08] MEDS: LATANOPROST 0.005% OPHTH SOLUTION 2.5ML BOTTLE. OU SCH (21:03)
[2020-03-08] MEDS: ATORVASTATIN CALCIUM 20 MG TABLET PO SCH (21:04)
[2020-03-08 23:01] VITALS: BP 119/55
[2020-03-09 03:23] VITALS: BP 120/71
[2020-03-09 04:33] LABS: PROTHROMBIN TIME PATIENT 18.1 SEC (11.7-14.0)
[2020-03-09 07:00] VITALS: BP 132/71
[2020-03-09] MEDS: LACTOBACILLUS RHAMNOSUS GG 1 CAPSULE. PO SCH (08:13)
[2020-03-09] MEDS: CETIRIZINE HCL 10 MG TABLET. PO SCH (08:13)
[2020-03-09] MEDS: ZINC SULFATE 220 MG CAPSULE. PO SCH (08:13)
[2020-03-09] MEDS: ASPIRIN ENTERIC COATED 81 MG TABLET.DR. PO SCH (08:14)
[2020-03-09] MEDS: ISOSORBIDE MONONITRATE ER 30 MG TAB.ER.24H PO SCH (08:14)
[2020-03-09] MEDS: buPROPion SR 150 MG TABLET.SA PO SCH (08:14)
[2020-03-09] MEDS: FUROSEMIDE 40 MG TABLET. PO SCH (08:14)
[2020-03-09] MEDS: METOPROLOL TART IMMED RELEASE 50 MG TABLET. PO SCH (08:15)
[2020-03-09] MEDS: amLODIPine BESYLATE 10 MG TABLET PO SCH (08:15)
[2020-03-09] MEDS: LISINOPRIL 20 MG TABLET PO SCH (08:16)
[2020-03-09] MEDS: FLUTICASONE 50MCG/NASAL SPRAY 16GM BOTTLE. NS SCH (08:17)
[2020-03-09] MEDS: NYSTATIN TOPICAL POWDER 15GM BOTTLE. TP SCH (08:17)
[2020-03-09] MEDS: INSULIN LISPRO 300 UNITS/3 ML VIAL. SQ SCH ×2 (08:18→13:00)
--- NOTE | 2020-03-09 09:18 | PDOC ---
PROGRESS NOTES Chief Complaint Chief Complaint A/P: Coronavirus infection Cough - with shortness of breath. Secondary to acute COPD exacerbation. Improved Diarrhea - will monitor, psyllium HTN - cont meds Hyperlipidemia - cont statin AFIB - on BB and coumadin, will continue, monitor INR CHF - unknown if ischemic cardiomyopathy, seems compensated currently Acute exacerbation of COPD - as above Depression - cont meds DM2 - basal bolus plus insulin while inpatient Visual blurring - likely glaucoma, difficult to test pressure here, currently on lananoprost (prostaglandin) daily, seems to have improved her vision but not recovered completely. Will need outpatient formal ophtalmological evaluation once she recovers from her covid 19 infection. 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 Cerebral chronic ischemic microvascular changes Left basal ganglia lacunar infarct FEN - ADA diet PPX - lovenox FULL CODE Dispo -inpatient rehab when bed available, [facility] reported to nursing staff most likely will be in the am since they dont have discharges scheduled for today History of Present Illness History of Present Illness Ms Yang is a 74 yo F resident of [facility] w/ PMHx HTN, Hyperlipidemia, AFIB, valvular insufficiency, CHF, cardiomyopathy, COPD, Depression, DM2 who p/w cough, shortness of breath, diarrhea for the last 3-4 days. was recently tested for COVID-19 and was positive. Now, she has nausea, vomiting, and diarrhea. She has some associated dizziness. This has been occurring off and on for a few days, worse with moving, better with sitting still. She gets fatigued easily. Her dizziness worsens with change in position. She has underlying COPD, but states her shortness of breath is worse. While in the ER, she is noted to have a low-grade temperature of 100.5. She also has a mild white count elevation 13K. Chest x-ray is showing a possible atypical pneumonia. Was called for admission for further treatment In ED noted in afib, normal troponin. CXR with no acute findings. BNP 1212, K 5.2, Cr 1.1, glucose 173. Admitted for further care of Hypertensive urgency. Chest x-ray showed bilateral diffuse interstitial infiltrate and cardiomegaly. The patient received Rocephin and azithromycin 1 dose each from the ER. 02/24: States her breathing is okay, although she is normally not on oxygen. She is requiring 3 L of oxygen. Denies now any nausea, vomiting, or diarrhea which she has had, she says. Denies any abdominal pain, urinary symptoms, headache, or visual symptoms. 02/25: She is complaining blurred vision in her right eye today. No focal neurologic deficits otherwise. She lost IV access, has been converted to p.o. antibiotics and p.o. antihypertensives. 02/26: Overnight bradycardic, metoprolol had been increased to 75 mg, now reduced to 25 mg twice daily, still has Cardizem 300 mg daily. Lost IV access. SBP 198 today. HR in the 80s. Still feels very weak. 02/27: BP better controlled. On amlodipine 10 mg, lisinopril 20 mg, metoprolol. Still hypoxic still very weak still with some right eye blurring. She says she feels terrible and tired. 02/28: Overnight no events. Afebrile BP better controlled. Still hypoxic. Still with blurred vision in her right eye. Still dizzy and nauseated. 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 Neuro consult. 03/01: Overnight no events. Afebrile. BP controlled. Still hypoxic. Uncoordina tion and right visual blurring persist. CT results concerning for possible right cerebellar mass and left basal ganglia infarct. 03/02: Neurology beauty consultant recommendations greatly appreciated. Continue with current treatment plan in light of his slow improvement, holding off on doing MRI given the stability of her clinical picture. 03/03: Patient from the neurosurgical standpoint of view according to nursing staff is okay to be dismissed despite not having an MRI which can be done in the outpatient setting, patient seems to be not progressing much we will continue to monitor for the next 24 hours 03/04: Patient overall stable, contacted my CM regarding nursing staff concerns about patient's dizziness. we will observe for 24 hours. Neuro beauty consultant should be back in the am hopefully will discharge soon 03/05: Patient continues to be quite dizzy, the patient lives in assisted living facility and physical therapy has recommended inpatient rehab for her discharge. We have requested 80 from case management in order to manage her disposition at this point. 03/06: No acute events reported overnight, case discussed with nursing staff patient in no acute distress no complaints during my visit 03/07: No acute events reported overnight, case discussed with nursing staff ramirez george in no acute distress no complaints during my visit, physical therapy evaluated patient today, awaiting for available bed at acute rehab facility 03/08: Vision improving Overnight no events. INR low again Still very weak. She is optimistic about rehab Plan: Will add lovenox, suptherapeutic INR. Monitor BP Formal visual examination, no clear signs of increased ocular pressure Hold on MRI, risks outweigh benefits in this COVID positive patient. Do MRI in 2 weeks, if still positive then We would not do brain surgery in COVID + patient unless emergent Ophthalmology evaluation as outpatient Rehabilitation modalities Vitals Vitals Vital Signs Date Time Temp Pulse Resp B/P (MAP) Pulse Ox O2 Delivery O2 Flow Rate FiO2 03/09/20 08:16 87 132/71 03/09/20 07:00 97.5 18 100 Nasal Cannula 2.0 97.5 Physical Exam Physical Exam GENERAL: Alert, oriented female, not in any distress. Coop HEENT: Both pupils are round and reacting. No conjunctival lesion, no lesion in the mouth. NECK: Supple, no JVP, no lymphadenopathy. LUNGS: Clear. HEART: S1, S2 regular. ABDOMEN: Benign. EXTREMITIES: No edema or cyanosis. SKIN: Unremarkable. NEUROLOGIC: The patient is alert, awake, and appropriate. No focal neurologic deficit. Lungs: Clear Labs LABS Laboratory Tests Test 03/08/20 11:21 03/08/20 15:22 03/08/20 20:54 03/09/20 03:25 Glucose (Fingerstick) 141 mg/dL (70-99) 210 mg/dL (70-99) 132 mg/dL (70-99) Prothrombin Time 18.1 SEC (11.7-14.0) Prothromb Time International Ratio 1.5 (0.8-1.1) Test 03/09/20 07:40 Glucose (Fingerstick) 112 mg/dL (70-99) Assessment and Plan Assessmemt and Plan Problems Medical Problems: (1) COVID-19 Status: Acute (2) Hypertensive urgency Status: Acute (3) Pneumonia Status: Acute (4) Vertigo Status: Acute Comment Review of Relevant I have reviewed the following items raman (where applicable) has been applied. Labs Laboratory Tests Test 03/07/20 11:14 03/07/20 16:20 03/07/20 21:12 03/08/20 04:15 Glucose (Fingerstick) 210 mg/dL (70-99) 151 mg/dL (70-99) 123 mg/dL (70-99) Prothrombin Time 17.2 SEC (11.7-14.0) Prothromb Time International Ratio 1.4 (0.8-1.1) Test 03/08/20 07:56 03/08/20 11:21 03/08/20 15:22 03/08/20 20:54 Glucose (Fingerstick) 143 mg/dL (70-99) 141 mg/dL (70-99) 210 mg/dL (70-99) 132 mg/dL (70-99) Test 03/09/20 03:25 03/09/20 07:40 Prothrombin Time 18.1 SEC (11.7-14.0) Prothromb Time International Ratio 1.5 (0.8-1.1) Glucose (Fingerstick) 112 mg/dL (70-99) Laboratory Tests Test 03/08/20 11:21 03/08/20 15:22 03/08/20 20:54 03/09/20 03:25 Glucose (Fingerstick) 141 mg/dL (70-99) 210 mg/dL (70-99) 132 mg/dL (70-99) Prothrombin Time 18.1 SEC (11.7-14.0) Prothromb Time International Ratio 1.5 (0.8-1.1) Test 03/09/20 07:40 Glucose (Fingerstick) 112 mg/dL (70-99) Microbiology 02/23/20 Blood Culture - Final, Complete NO GROWTH AFTER 5 DAYS Medications Current Medications Ondansetron HCl (Zofran) 4 mg 1X ONCE IVP Last administered on 02/23/20at 19:43; Start 02/23/20 at 19:45; Stop 02/23/20 at 19:46; Status DC Meclizine HCl (Antivert) 25 mg 1X ONCE PO Last administered on 02/23/20at 19:44; Start 02/23/20 at 19:45; Stop 02/23/20 at 19:46; Status DC Sodium Chloride 1,000 ml @ 1,000 mls/hr Q1H IV Last administered on 02/23/20at 20:14; Start 02/23/20 at 19:28; Stop 02/23/20 at 20:27; Status DC Lorazepam (Ativan Inj) 1 mg 1X ONCE IVP Last administered on 02/23/20at 19:44; Start 02/23/20 at 19:45; Stop 02/23/20 at 19:46; Status DC Hydralazine HCl (Apresoline Inj) 10 mg 1X ONCE IVP Last administered on 02/23/20at 20:14; Start 02/23/20 at 20:00; Stop 02/23/20 at 20:03; Status DC Scopolamine (Transderm-Scop) 1 patch 1X ONCE TD Last administered on 02/23/20at 22:21; Start 02/23/20 at 22:30; Stop 02/23/20 at 22:31; Status DC Ceftriaxone Sodium (Rocephin) 1 gm 1X ONCE IVP Last administered on 02/23/20at 22:27; Start 02/23/20 at 22:30; Stop 02/23/20 at 22:31; Status DC Azithromycin (Zithromax) 500 mg 1X ONCE PO Last administered on 02/23/20at 22 :26; Start 02/23/20 at 22:30; Stop 02/23/20 at 22:31; Status DC Hydralazine HCl (Apresoline Inj) 10 mg 1X ONCE IVP Last administered on 02/23/20at 23:12; Start 02/23/20 at 23:30; Stop 02/23/20 at 23:31; Status DC Ondansetron HCl (Zofran) 4 mg PRN Q8HRS PRN IV NAUSEA/VOMITING 1ST CHOICE; Start 02/23/20 at 23:00; Stop 02/24/20 at 22:59; Status DC Acetaminophen (Tylenol) 650 mg PRN Q4HRS PRN PO FEVER > 100.3'F; Start 02/23/20 at 23:00; Stop 02/24/20 at 12:22; Status DC Albuterol/ Ipratropium (Duoneb) 3 ml RTQID NEB ; Start 02/24/20 at 08:00; Stop 02/24/20 at 09:21; Status DC Albuterol/ Ipratropium (Duoneb) 3 ml 1X ONCE NEB ; Start 02/23/20 at 23:45; Stop 02/23/20 at 23:46; Status DC Clonidine HCl (Catapres) 0.2 mg 1X ONCE PO Last administered on 02/24/20at 00:47; Start 02/24/20 at 01:00; Stop 02/24/20 at 01:01; Status DC Albuterol/ Ipratropium (Duoneb) 3 ml PRN Q4HRS PRN NEB SHORTNESS OF BREATH; Start 02/24/20 at 09:30; Stop 02/25/20 at 09:29; Status DC Hydralazine HCl (Apresoline Inj) 10 mg PRN Q4HRS PRN IVP ELEVATED BP, SEE COMMENTS; Start 02/24/20 at 09:45; Stop 02/27/20 at 03:42; Status DC Piperacillin Sod/ Tazobactam Sod 3.375 gm/Sodium Chloride 50 ml @ 100 mls/hr Q6HRS IV Last administered on 02/26/20at 05:53; Start 02/24/20 at 12:00; Stop 02/26/20 at 10:11; Status DC Linezolid/Dextrose 300 ml @ 300 mls/hr Q12HR IV Last administered on 02/26/20at 08:55; Start 02/24/20 at 11:00; Stop 02/26/20 at 10:11; Status DC Acetaminophen (Tylenol) 650 mg PRN Q6HRS PRN PO HEADACHE/TEMP Last administered on 03/02/20at 16:41; Start 02/24/20 at 12:15 Aspirin (Ecotrin) 81 mg DAILY PO Last administered on 03/09/20at 08:14; Start 02/25/20 at 09:00 Atorvastatin Calcium (Lipitor) 20 mg QHS PO Last administered on 03/08/20at 21:04; Start 02/24/20 at 21:00 Bupropion HCl (Wellbutrin Sr) 150 mg DAILY PO Last administered on 03/09/20at 08:14; Start 02/25/20 at 09:00 Digoxin (Lanoxin) 125 mcg DAILY PO ; Start 02/25/20 at 09:00; Stop 02/24/20 at 16:58; Status DC Diltiazem HCl (Cardizem 24hr Cd) 300 mg DAILY PO ; Start 02/25/20 at 09:00; Stop 02/24/20 at 16:58; Status DC Ergocalciferol (Vitamin D2) 50,000 unit QSA PO Last administered on 03/07/20at 16:38; Start 02/29/20 at 16:00 Fluticasone Propionate (Flonase) 2 spray DAILY NS Last administered on 03/09/20at 08:17; Start 02/25/20 at 09:00 Furosemide (Lasix) 40 mg DAILY PO Last administered on 03/09/20at 08:14; Start 02/25/20 at 09:00 Hydralazine HCl (Apresoline) 25 mg TID PO Last administered on 02/26/20at 08:56; Start 02/24/20 at 14:00; Stop 02/26/20 at 11:53; Status DC Lisinopril (Prinivil) 10 mg DAILY PO ; Start 02/25/20 at 09:00; Stop 02/24/20 at 16:58; Status DC Metoprolol Tartrate (Lopressor) 75 mg BID PO Last administered on 02/26/20at 08:56; Start 02/24/20 at 21:00; Stop 02/26/20 at 16:25; Status DC Warfarin Sodium (Coumadin) 0.5 mg DAILY PO ; Start 02/25/20 at 09:00; Stop 02/24/20 at 13:04; Status DC Warfarin Sodium (Coumadin) 6 mg DAILY16 PO ; Start 02/24/20 at 16:00; Status UNV Insulin Human Lispro (HumaLOG) 15 units TIDWMEALS SQ Last administered on 02/14 08:18; Start 02/24/20 at 17:00 Loperamide HCl (Imodium) 2 mg PRN Q15MIN PRN PO DIARRHEA; Start 02/24/20 at 12:45 Cetirizine HCl (ZyrTEC) 10 mg DAILY PO Last administered on 03/09/20at 08:13; Start 02/25/20 at 09:00 Warfarin Sodium (Coumadin Per Pharmacy) 1 each PRN DAILY PRN MC SEE COMMENTS Last administered on 03/08/20at 11:11; Start 02/24/20 at 12:45 Warfarin Sodium (Coumadin) 4 mg 1X WARF ONCE PO Last administered on 02/24/20at 17:27; Start 02/24/20 at 16:00; Stop 02/24/20 at 16:01; Status DC Furosemide (Lasix) 40 mg 1X ONCE IVP Last administered on 02/24/20at 17:25; Start 02/24/20 at 17:00; Stop 02/24/20 at 17:01; Status DC Digoxin (Lanoxin) 125 mcg DAILY PO Last administered on 02/26/20at 08:57; Start 02/24/20 at 17:00; Stop 02/26/20 at 16:25; Status DC Diltiazem HCl (Cardizem 24hr Cd) 300 mg DAILY PO Last administered on 02/26/20at 08:57; Start 02/24/20 at 17:00; Stop 02/26/20 at 16:25; Status DC Lisinopril (Prinivil) 10 mg DAILY PO Last administered on 02/27/20at 09:02; Start 02/24/20 at 17:00; Stop 02/28/20 at 08:56; Status DC Ondansetron HCl (Zofran) 4 mg PRN Q6HRS PRN IVP NAUSEA/VOMITING Last administered on 02/25/20at 11:41; Start 02/25/20 at 11:30; Stop 02/27/20 at 03:42; Status DC Warfarin Sodium (Coumadin) 6 mg 1X WARF ONCE PO Last administered on 02/25/20 17:21; Start 02/25/20 at 16:00; Stop 02/25/20 at 16:01; Status DC Lactobacillus Rhamnosus (Culturelle) 1 cap BID PO Last administered on 03/09/20at 08:13; Start 02/25/20 at 21:00 Amoxicillin/ Clavulanate Potassium (Augmentin 875/ 125mg) 1 tab BID PO Last administered on 03/01/20at 20:32; Start 02/26/20 at 21:00; Stop 03/01/20 at 21:59; Status DC Hydralazine HCl (Apresoline) 50 mg TID PO Last administered on 02/26/20at 13:34; Start 02/26/20 at 14:00; Stop 02/26/20 at 16:25; Status DC Zinc Sulfate (Orazinc) 220 mg DAILY PO Last administered on 03/09/20at 08:13; Start 02/27/20 at 09:00 Latanoprost (Xalatan) 1 drop QHS OU Last administered on 03/08/20at 21:03; Start 02/26/20 at 12:45 Diltiazem HCl (Cardizem 24hr Cd) 300 mg DAILYWLUN PO ; Start 02/27/20 at 12:00; Stop 02/28/20 at 08:56; Status DC Hydralazine HCl (Apresoline) 75 mg TID PO Last administered on 03/01/20at 09:14; Start 02/26/20 at 21:00; Stop 03/01/20 at 10:22; Status DC Metoprolol Tartrate (Lopressor) 50 mg BID PO Last administered on 03/09/20at 08:15; Start 02/27/20 at 21:00 Amlodipine Besylate (Norvasc) 10 mg DAILY ONCE PO ; Start 02/28/20 at 09:00; Stop 02/27/20 at 11:57; Status DC Nitroglycerin (Nitro-Bid Oint) 1 inch Q6HRS TP Last administered on 03/03/20at 12:16; Start 02/27/20 at 12:00; Stop 03/03/20 at 14:32; Status DC Amlodipine Besylate (Norvasc) 10 mg 1X ONCE PO Last administered on 02/27/20at 12:28; Start 02/27/20 at 12:00; Stop 02/27/20 at 12:01; Status DC Ondansetron HCl (Zofran Odt) 4 mg PRN Q6HRS PRN PO NAUSEA/VOMITING Last administered on 02/27/20at 15:08; Start 02/27/20 at 13:15 Prochlorperazine Edisylate (Compazine) 10 mg PRN Q6HRS PRN IM NAUSEA/VOMITING Last administered on 02/29/20at 18:55; Start 02/27/20 at 13:15 Metoprolol Tartrate (Lopressor) 50 mg 1X ONCE PO ; Start 02/27/20 at 14:00; Stop 02/27/20 at 14:01; Status DC Amlodipine Besylate (Norvasc) 10 mg DAILY PO Last administered on 03/09/20 08:15; Start 02/28/20 at 09:00 Warfarin Sodium (Coumadin) 6 mg 1X WARF ONCE PO Last administered on 02/27/20at 15:09; Start 02/27/20 at 16:00; Stop 02/27/20 at 16:01; Status DC Lisinopril (Prinivil) 20 mg DAILY PO Last administered on 02/29/20at 08:30; Start 02/28/20 at 09:00; Stop 02/29/20 at 11:28; Status DC Enoxaparin Sodium (Lovenox 80mg Syringe) 80 mg Q12HR SQ Last administered on 03/02/20at 09:12; Start 02/28/20 at 12:15; Stop 03/02/20 at 15:58; Status DC Warfarin Sodium (Coumadin) 9 mg 1X WARF ONCE PO Last administered on 02/28/20at 17:16; Start 02/28/20 at 16:00; Stop 02/28/20 at 16:01; Status DC Warfarin Sodium (Coumadin) 9 mg 1X WARF ONCE PO Last administered on 02/29/20at 16:55; Start 02/29/20 at 16:00; Stop 02/29/20 at 16:01; Status DC Lisinopril (Prinivil) 40 mg DAILY PO Last administered on 03/09/20at 08:16; Start 03/01/20 at 09:00 Lisinopril (Prinivil) 20 mg 1X ONCE PO Last administered on 02/29/20at 14:42; Start 02/29/20 at 12:30; Stop 02/29/20 at 12:31; Status DC Hydralazine HCl (Apresoline) 100 mg TID PO Last administered on 03/09/20at 08:15; Start 03/01/20 at 14:00 Warfarin Sodium (Coumadin) 9 mg 1X WARF ONCE PO Last administered on 03/01/20at 17:59; Start 03/01/20 at 16:00; Stop 03/01/20 at 16:01; Status DC Isosorbide Mononitrate (Imdur) 30 mg DAILY PO Last administered on 03/09/20at 08:14; Start 5/18/20 at 15:00 Warfarin Sodium (Coumadin) 7.5 mg 1X WARF ONCE PO Last administered on 03/02/20at 16:06; Start 03/02/20 at 16:00; Stop 03/02/20 at 16:01; Status DC Ondansetron HCl (Zofran) 4 mg 1X ONCE IM Last administered on 03/02/20at 16:07; Start 03/02/20 at 16:15; Stop 03/02/20 at 16:16; Status DC Warfarin Sodium (Coumadin) 6 mg 1X WARF ONCE PO Last administered on 03/03/20at 16:35; Start 03/03/20 at 16:00; Stop 03/03/20 at 16:01; Status DC Warfarin Sodium (Coumadin) 3 mg 1X WARF ONCE PO Last administered on 03/04/20at 16:54; Start 03/04/20 at 16:00; Stop 03/04/20 at 16:01; Status DC Warfarin Sodium (Coumadin) 3 mg 1X ONCE PO Last administered on 03/05/20at 17:45; Start 03/05/20 at 18:00; Stop 03/05/20 at 18:01; Status DC Warfarin Sodium (Coumadin) 3 mg 1X WARF ONCE PO Last administered on 03/06/20at 16:10; Start 03/06/20 at 16:00; Stop 03/06/20 at 16:01; Status DC Warfarin Sodium (Coumadin) 4 mg 1X WARF ONCE PO Last administered on 03/07/20at 16:37; Start 03/07/20 at 16:00; Stop 03/07/20 at 16:01; Status DC Nystatin (Nystop) 1 linda BID TP Last administered on 03/09/20at 08:17; Start 03/08/20 at 11:00 Enoxaparin Sodium (Lovenox 120mg Syringe) 120 mg Q12HR SQ Last administered on 03/09/20at 08:16; Start 03/08/20 at 12:00 Warfarin Sodium (Coumadin) 6 mg 1X WARF ONCE PO Last administered on 03/08/20at 15:11; Start 03/08/20 at 16:00; Stop 03/08/20 at 16:01; Status DC Active Scripts Active Atorvastatin Calcium 20 Mg Tablet 20 Mg PO QHS 30 Days Lisinopril 10 Mg Tablet 10 Mg PO DAILY 30 Days Tylenol (Acetaminophen) 325 Mg Tablet 650 Mg PO PRN Q6HRS PRN 30 Days Coumadin (Warfarin Sodium) 3 Mg Tablet 6 Mg PO DAILY16 30 Days Diltiazem 24HR Cd (Diltiazem Hcl) 300 Mg Cap.er.24h 300 Mg PO DAILY 30 Days Lanoxin (Digoxin) 125 Mcg Tablet 125 Mcg PO DAILY 30 Days [Albuterol Sulfate] 2.5 MG/3 ML Nebu 2.5 Mg NEB PRN Q4HRS PRN Reported Ventolin Hfa Inhaler (Albuterol Sulfate) 18 Gm Hfa.aer.ad 2 Puff INH Q4HRS Combivent Respimat Inhal (Ipratropium/Albuterol Sulfate) 4 Gm Aer.w.adap 2 Inh IH QID Loratadine 10 Mg Tablet 10 Mg PO DAILY Loperamide (Loperamide Hcl) 2 Mg Tablet 2 Mg PO PRN Q4HRS PRN Furosemide 40 Mg Tablet 40 Mg PO DAILY Metoprolol Tartrate 50 Mg Tablet 75 Mg PO BID Warfarin Sodium 1 Mg Tablet 0.5 Mg PO DAILY Hydralazine Hcl 25 Mg Tablet 1 Tab PO TID Wellbutrin Sr (Bupropion Hcl) 150 Mg Tablet.er 150 Mg PO DAILY Novolog (Insulin Aspart) 100 Unit/1 Ml Cartridge 15 Unit SQ TID Aspirin Ec (Aspirin) 81 Mg Tablet.dr 1 Tab PO DAILY Fluticasone Propionate Nasal [place] (Fluticasone Propionate) 16 Gm [place].susp 2 [place] NS DAILY LAST DOSE GIVEN: DATE: 10-13-15 TIME: 9 am NEXT DOSE DUE: DATE: 10-14-15 TIME: 9 am Vitamin D2 (Ergocalciferol (Vitamin D2)) 50,000 Unit Capsule 1 Cap PO QSA Vitals/I & O Vital Sign - Last 24 Hours 03/08/20 03/08/20 03/08/20 03/08/20 11:00 13:02 15:00 19:00 Temp 96.7 97.9 98.0 96.7 97.9 98.0 Pulse 82 82 84 76 Resp 18 18 19 B/P (MAP) 117/78 (91) 117/78 113/65 (81) 119/58 (78) Pulse Ox 97 97 96 O2 Delivery Nasal Cannula Nasal Cannula Nasal Cannula O2 Flow Rate 2.0 2.0 2.0 5/2403/08/20 03/08/20 03/08/20 20:01 21:05 21:06 23:01 Temp 98.2 98.2 Pulse 76 80 Resp 19 B/P (MAP) 119/58 119/58 119/55 (76) Pulse Ox 98 O2 Delivery Nasal Cannula Nasal Cannula O2 Flow Rate 2.0 2.0 03/09/20 03/09/20 03/09/20 03/09/20 03:23 07:00 08:14 08:15 Temp 97.8 97.5 97.8 97.5 Pulse 74 87 87 87 Resp 18 18 B/P (MAP) 120/71 (87) 132/71 (91) 132/71 132/71 Pulse Ox 96 100 O2 Delivery Nasal Cannula Nasal Cannula O2 Flow Rate 2.0 2.0 03/09/20 03/09/20 03/09/20 08:15 08:15 08:16 Pulse 87 87 87 B/P (MAP) 132/71 132/71 132/71 Intake and Output 03/08/20 03/08/20 03/09/20 15:00 23:00 07:00 Intake Total 600 ml 240 ml Output Total 250 ml Balance 350 ml 240 ml Nutrition Consultation Dietary Evaluation: Recommendations by RD: Dietary education by RD, Increase Calorie Intake, Protein supplementation Comments: REC continue ADA/cardiac diet with glucerna tid Expected Outcomes/Goals: to meet >75% est nutrition and fluid needs- goal ongoing Malnutrition Findings: Food and Nutrition Intake (Mod: <75% est energy req 7days Weight Status: Morbidly Obese Fluid Accumulation (Non-Severe: Mild depletion SHARRON GRUBBS MD March 09, 2020 09:18
[2020-03-09 11:00] VITALS: BP 103/57
--- NOTE | 2020-03-09 12:43 | NUR ---
Pharmacy Warfarin Dosing Note S:Pharmacy consulted to assist with anticoagulation therapy started with target INR: 2 -3 O:MICHAELA COOPER is a 74 year old F with Atrial Fibrillation LABS: Last INR: 1.5 Last HGB: 11.2 Last HCT: 35.4 Last PLT: 297 Last dose of 6 mg given on 03/08/20 at 1511 Vitamin K given: N Drug Interaction Changes: Same Interacting Drug Ongoing Drug Interactions: ASA A:INR of 1.5 is below desired range. Target range for this patient is: 2 -3 P: Warfarin dose: 6 mg today at 1600 Bridge Therapy: Enoxaparin 1 mg/kg q12h Next INR due 03/10/20 Pharmacy anticoagulation service will continue to follow. LEXY DUMONT RPH, 03/09/20 [id number]
[2020-03-09] MEDS ORDERED: NYST60PO TP (13:39)
[2020-03-09] MEDS ORDERED: ENOX120D3 SQ (13:39)
[2020-03-09] MEDS ORDERED: METO50TA6 PO (13:39)
[2020-03-09] MEDS ORDERED: AMLO10TA8 PO (13:39)
[2020-03-09] MEDS ORDERED: LISI10TA2 PO (13:39)
[2020-03-09] MEDS ORDERED: LATA2.5D3 OU (13:39)
[2020-03-09] MEDS ORDERED: HYDR-2868 PO (13:39)
[2020-03-09] MEDS ORDERED: ISOS30TA4 PO (13:39)
--- NOTE | 2020-03-09 13:40 | SNU/HH DC ---
DISCHARGE ORDERS DISCHARGE INFORMATION: DISCHARGE DATE: March 09, 2020 FINAL DIAGNOSIS Problems Medical Problems: (1) COVID-19 Status: Acute (2) Hypertensive urgency Status: Acute (3) Pneumonia Status: Acute (4) Vertigo Status: Acute CONDITION ON DISCHARGE: Stable CODE STATUS: Code Status: Full [facility]: SNF STAY <30 DAYS: Yes POST DISCHARGE ORDERS: ACTIVITY ORDERS: No restrictions WEIGHT BEARING STATUS: No restrictions DIET AFTER DISCHARGE: ADA CHECKS AFTER DISCHARGE: CHECKS AFTER DISCHARGE: Check blood press - daily, Check blood sugar, ac/hs, Weigh Yourself Daily FOLLOW-UP: ANTICOAGULATION F/U NEEDED: INR 03/10/2020 - Goal INR 2-3, bridge on lovenox until INR > 1.8 TREATMENT/EQUIPMENT ORDERS: ADAPTIVE EQUIPMENT NEEDED: Four wheeled walker, Front wheeled walker RESPIRATORY EQUIPMENT NEEDED: Nebulizer Physical Therapy For: Evalulation/Treatment Occupational Therapy For: Evaluation/Treatment Speech Language Pathology For: Evaluation/Treatment DISCHARGE MEDICATIONS: Home Meds Active Scripts Nystatin (NYSTOP) 60 Gm Powder, 1 ANDREIA TP BID for intertrigo for 30 Days, #30 MISC Prov:SHARRON GRUBBS MD 03/09/20 Latanoprost (LATANOPROST) 2.5 Ml Drops, 1 DROP OU QHS for Glaucoma for 30 Days, #30 DROP Prov:SHARRON GRUBBS MD 03/09/20 Amlodipine Besylate (AMLODIPINE BESYLATE) 10 Mg Tablet, 10 MG PO DAILY for HTN for 30 Days, #30 TAB Prov:SHARRON GRUBBS MD 03/09/20 Isosorbide Mononitrate (ISOSORBIDE MONONITRATE ER) 30 Mg Tab.er.24h, 30 MG PO DAILY for HTN for 30 Days, #30 TAB.SR Prov:SHARRON GRUBBS MD 03/09/20 Enoxaparin Sodium (ENOXAPARIN SODIUM) 120 Mg/0.8 Ml Disp.syrin, 120 MG SQ Q12HR for AFib for 5 Days, #10 DIS.SYR Prov:SHARRON GRUBBS MD 03/09/20 Metoprolol Tartrate (METOPROLOL TARTRATE) 50 Mg Tablet, 50 MG PO BID for FOR HYPERTENSION for 30 Days, #60 TAB 0 Refills Prov:SHARRON GRUBBS MD 03/09/20 Hydralazine Hcl (HYDRALAZINE HCL) 25 Mg Tablet, 4 TAB PO TID for blood pressure for 30 Days, #360 TAB 5 Refills Prov:SHARRON GRUBBS MD 03/09/20 Lisinopril (LISINOPRIL) 10 Mg Tablet, 40 MG PO DAILY for heart/bp/kidneys for 30 Days, #120 TAB Prov:SHARRON GRUBBS MD 03/09/20 Atorvastatin Calcium (ATORVASTATIN CALCIUM) 20 Mg Tablet, 20 MG PO QHS for cholesterol for 30 Days, #30 TAB Prov:Evelin RIUZ MD 05/24/19 Acetaminophen (TYLENOL) 325 Mg Tablet, 650 MG PO PRN Q6HRS PRN for PAIN for 30 Days, #100 TAB Prov:Evelin RUIZ MD 05/24/19 Warfarin Sodium (COUMADIN) 3 Mg Tablet, 6 MG PO DAILY16 for afib for 30 Days, #60 TAB Prov:Evelin RUIZ MD 05/24/19 Digoxin (LANOXIN) 125 Mcg Tablet, 125 MCG PO DAILY for 30 Days Prov:LINDA RG MD 10/13/15 [Albuterol Sulfate] 2.5 MG/3 ML NEBU No Conflict Check, 2.5 MG NEB PRN Q4HRS PRN for SHORTNESS OF BREATH Prov:Evelin RUIZ MD 06/25/15 Reported Medications Albuterol Sulfate (VENTOLIN HFA INHALER) 18 Gm Hfa.aer.ad, 2 PUFF INH Q4HRS for FOR ASTHMA, INHALER 0 Refills 02/24/20 Ipratropium/Albuterol Sulfate (COMBIVENT RESPIMAT INHAL) 4 Gm Aer.w.adap, 2 INH IH QID for copd, INHALER 02/24/20 Loratadine (LORATADINE) 10 Mg Tablet, 10 MG PO DAILY for allergies, TAB 02/24/20 Loperamide Hcl (LOPERAMIDE) 2 Mg Tablet, 2 MG PO PRN Q4HRS PRN for DIARRHEA, TAB 02/24/20 Furosemide (FUROSEMIDE) 40 Mg Tablet, 40 MG PO DAILY for diuretic, TAB 02/24/20 Warfarin Sodium (WARFARIN SODIUM) 1 Mg Tablet, 0.5 MG PO DAILY for blood thinner, TAB 02/24/20 Bupropion Hcl (WELLBUTRIN SR) 150 Mg Tablet.er, 150 MG PO DAILY for antidepresant, TAB.SR 05/21/19 Insulin Aspart (NOVOLOG) 100 Unit/1 Ml Cartridge, 15 UNIT SQ TID for glucose control, EACH 05/21/19 Aspirin (ASPIRIN EC) 81 Mg Tablet.dr, 1 TAB PO DAILY for circulations, #30 TAB 3 Refills 05/21/19 Fluticasone Propionate (FLUTICASONE PROPIONATE NASAL SPRAY) 16 Gm [place].susp, 2 SPRAY NS DAILY, #1 INHALER 11 Refills LAST DOSE GIVEN: DATE: 10-13-15 TIME: 9 am NEXT DOSE DUE: DATE: 10-14-15 TIME: 9 am 06/23/15 Ergocalciferol (Vitamin D2) (VITAMIN D2) 50,000 Unit Capsule, 1 CAP PO QSA for supplement, #4 CAP 5 Refills 06/23/15 Discontinued Scripts Diltiazem Hcl (DILTIAZEM 24HR CD) 300 Mg Cap.er.24h, 300 MG PO DAILY for 30 Days Prov:LINDA RG MD 10/13/15 SHARRON GRUBBS MD March 09, 2020 13:40
--- NOTE | 2020-03-09 13:57 | PDOC ---
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 ESR normal COVID +, persistent Hypertension, hyperlipidemia, A fib on chronic anticoagulation, cardiomyopathy, congestive heart failure, chronic obstructive pulmonary disease, diabetes Plan Hold on MRI, risks outweigh benefits in this COVID positive patient. Do MRI in 2 weeks, if still positive then We would not do brain surgery in COVID + patient unless emergent Ophthalmology evaluation as outpatient Rehabilitation modalities Subjective No complaints Objective Vital Signs Date Time Temp Pulse Resp B/P (MAP) Pulse Ox O2 Delivery O2 Flow Rate FiO2 03/09/20 11:00 97.5 84 18 103/57 (72) 100 Nasal Cannula 2.0 97.5 Intake and Output 03/09/20 07:00 Intake Total 840 ml Output Total 250 ml Balance 590 ml Intake Oral 840 ml Output Urine Total 250 ml # Voids 1 # Bowel Movements 1 PHYSICAL EXAM Alert. Oriented to time, place and person. PERRL. EOMI. No nystagmus Squints right eye CN: no focal findings. Muscle tone: normal. Muscle strength: 4/5 DTR: 1+ Plantar reflex: flexor Gait: not examined in bed. Sensory exam: no abnormal findings. No cerebellar signs elicited. Review of Relevant I have reviewed the following items raman (where applicable) has been applied. Labs Laboratory Tests Test 03/07/20 16:20 03/07/20 21:12 03/08/20 04:15 03/08/20 07:56 Glucose (Fingerstick) 151 mg/dL (70-99) 123 mg/dL (70-99) 143 mg/dL (70-99) Prothrombin Time 17.2 SEC (11.7-14.0) Prothromb Time International Ratio 1.4 (0.8-1.1) Test 03/08/20 11:21 03/08/20 15:22 03/08/20 20:54 03/09/20 03:25 Glucose (Fingerstick) 141 mg/dL (70-99) 210 mg/dL (70-99) 132 mg/dL (70-99) Prothrombin Time 18.1 SEC (11.7-14.0) Prothromb Time International Ratio 1.5 (0.8-1.1) Test 03/09/20 07:40 03/09/20 11:42 Glucose (Fingerstick) 112 mg/dL (70-99) 132 mg/dL (70-99) Laboratory Tests Test 03/08/20 15:22 03/08/20 20:54 03/09/20 03:25 03/09/20 07:40 Glucose (Fingerstick) 210 mg/dL (70-99) 132 mg/dL (70-99) 112 mg/dL (70-99) Prothrombin Time 18.1 SEC (11.7-14.0) Prothromb Time International Ratio 1.5 (0.8-1.1) Test 03/09/20 11:42 Glucose (Fingerstick) 132 mg/dL (70-99) Microbiology 02/23/20 Blood Culture - Final, Complete NO GROWTH AFTER 5 DAYS Medications Current Medications Ondansetron HCl (Zofran) 4 mg 1X ONCE IVP Last administered on 02/23/20at 19:43; Start 02/23/20 at 19:45; Stop 02/23/20 at 19:46; Status DC Meclizine HCl (Antivert) 25 mg 1X ONCE PO Last administered on 02/23/20at 19:44; Start 02/23/20 at 19:45; Stop 02/23/20 at 19:46; Status DC Sodium Chloride 1,000 ml @ 1,000 mls/hr Q1H IV Last administered on 02/23/20at 20:14; Start 02/23/20 at 19:28; Stop 02/23/20 at 20:27; Status DC Lorazepam (Ativan Inj) 1 mg 1X ONCE IVP Last administered on 02/23/20at 19:44; Start 02/23/20 at 19:45; Stop 02/23/20 at 19:46; Status DC Hydralazine HCl (Apresoline Inj) 10 mg 1X ONCE IVP Last administered on 02/23/20at 20:14; Start 02/23/20 at 20:00; Stop 02/23/20 at 20:03; Status DC Scopolamine (Transderm-Scop) 1 patch 1X ONCE TD Last administered on 02/23/20at 22:21; Start 02/23/20 at 22:30; Stop 02/23/20 at 22:31; Status DC Ceftriaxone Sodium (Rocephin) 1 gm 1X ONCE IVP Last administered on 02/23/20at 22:27; Start 02/23/20 at 22:30; Stop 02/23/20 at 22:31; Status DC Azithromycin (Zithromax) 500 mg 1X ONCE PO Last administered on 02/23/20at 22:26; Start 02/23/20 at 22:30; Stop 02/23/20 at 22:31; Status DC Hydralazine HCl (Apresoline Inj) 10 mg 1X ONCE IVP Last administered on 02/23/20at 23:12; Start 02/23/20 at 23:30; Stop 02/23/20 at 23:31; Status DC Ondansetron HCl (Zofran) 4 mg PRN Q8HRS PRN IV NAUSEA/VOMITING 1ST CHOICE; Start 02/23/20 at 23:00; Stop 02/24/20 at 22:59; Status DC Acetaminophen (Tylenol) 650 mg PRN Q4HRS PRN PO FEVER > 100.3'F; Start 02/23/20 at 23:00; Stop 02/24/20 at 12:22; Status DC Albuterol/ Ipratropium (Duoneb) 3 ml RTQID NEB ; Start 02/24/20 at 08:00; Stop 02/24/20 at 09:21; Status DC Albuterol/ Ipratropium (Duoneb) 3 ml 1X ONCE NEB ; Start 02/23/20 at 23:45; Stop 02/23/20 at 23:46; Status DC Clonidine HCl (Catapres) 0.2 mg 1X ONCE PO Last administered on 02/24/20at 00:47; Start 02/24/20 at 01:00; Stop 02/24/20 at 01:01; Status DC Albuterol/ Ipratropium (Duoneb) 3 ml PRN Q4HRS PRN NEB SHORTNESS OF BREATH; Start 02/24/20 at 09:30; Stop 02/25/20 at 09:29; Status DC Hydralazine HCl (Apresoline Inj) 10 mg PRN Q4HRS PRN IVP ELEVATED BP, SEE COMMENTS; Start 02/24/20 at 09:45; Stop 02/27/20 at 03:42; Status DC Piperacillin Sod/ Tazobactam Sod 3.375 gm/Sodium Chloride 50 ml @ 100 mls/hr Q6HRS IV Last administered on 02/26/20at 05:53; Start 02/24/20 at 12:00; Stop 02/26/20 at 10:11; Status DC Linezolid/Dextrose 300 ml @ 300 mls/hr Q12HR IV Last administered on 02/26/20at 08:55; Start 02/24/20 at 11:00; Stop 02/26/20 at 10:11; Status DC Acetaminophen (Tylenol) 650 mg PRN Q6HRS PRN PO HEADACHE/TEMP Last administered on 03/02/20at 16:41; Start 02/24/20 at 12:15 Aspirin (Ecotrin) 81 mg DAILY PO Last administered on 03/09/20at 08:14; Start 02/25/20 at 09:00 Atorvastatin Calcium (Lipitor) 20 mg QHS PO Last administered on 03/08/20at 21:04; Start 02/24/20 at 21:00 Bupropion HCl (Wellbutrin Sr) 150 mg DAILY PO Last administered on 03/09/20at 08:14; Start 02/25/20 at 09:00 Digoxin (Lanoxin) 125 mcg DAILY PO ; Start 02/25/20 at 09:00; Stop 02/24/20 at 16:58; Status DC Diltiazem HCl (Cardizem 24hr Cd) 300 mg DAILY PO ; Start 02/25/20 at 09:00; Stop 02/24/20 at 16:58; Status DC Ergocalciferol (Vitamin D2) 50,000 unit QSA PO Last administered on 03/07/20at 16:38; Start 02/29/20 at 16:00 Fluticasone Propionate (Flonase) 2 spray DAILY NS Last administered on 03/09/20at 08:17; Start 02/25/20 at 09:00 Furosemide (Lasix) 40 mg DAILY PO Last administered on 03/09/20at 08:14; Start 02/25/20 at 09:00 Hydralazine HCl (Apresoline) 25 mg TID PO Last administered on 02/26/20at 08:56; Start 02/24/20 at 14:00; Stop 02/26/20 at 11:53; Status DC Lisinopril (Prinivil) 10 mg DAILY PO ; Start 02/25/20 at 09:00; Stop 02/24/20 at 16:58; Status DC Metoprolol Tartrate (Lopressor) 75 mg BID PO Last administered on 02/26/20at 08:56; Start 02/24/20 at 21:00; Stop 02/26/20 at 16:25; Status DC Warfarin Sodium (Coumadin) 0.5 mg DAILY PO ; Start 02/25/20 at 09:00; Stop 02/24/20 at 13:04; Status DC Warfarin Sodium (Coumadin) 6 mg DAILY16 PO ; Start 02/24/20 at 16:00; Status UNV Insulin Human Lispro (HumaLOG) 15 units TIDWMEALS SQ Last administered on 03/09/20at 13:00; Start 02/24/20 at 17:00 Loperamide HCl (Imodium) 2 mg PRN Q15MIN PRN PO DIARRHEA; Start 02/24/20 at 12:45 Cetirizine HCl (ZyrTEC) 10 mg DAILY PO Last administered on 03/09/20at 08:13; Start 02/25/20 at 09:00 Warfarin Sodium (Coumadin Per Pharmacy) 1 each PRN DAILY PRN MC SEE COMMENTS Last administered on 03/09/20at 12:43; Start 02/24/20 at 12:45 Warfarin Sodium (Coumadin) 4 mg 1X WARF ONCE PO Last administered on 02/24/20at 17:27; Start 02/24/20 at 16:00; Stop 02/24/20 at 16:01; Status DC Furosemide (Lasix) 40 mg 1X ONCE IVP Last administered on 02/24/20at 17:25; Start 02/24/20 at 17:00; Stop 02/24/20 at 17:01; Status DC Digoxin (Lanoxin) 125 mcg DAILY PO Last administered on 02/26/20at 08:57; Start 02/24/20 at 17:00; Stop 02/26/20 at 16:25; Status DC Diltiazem HCl (Cardizem 24hr Cd) 300 mg DAILY PO Last administered on 02/26/20at 08:57; Start 02/24/20 at 17:00; Stop 02/26/20 at 16:25; Status DC Lisinopril (Prinivil) 10 mg DAILY PO Last administered on 02/27/20at 09:02; Start 02/24/20 at 17:00; Stop 02/28/20 at 08:56; Status DC Ondansetron HCl (Zofran) 4 mg PRN Q6HRS PRN IVP NAUSEA/VOMITING Last administered on 02/25/20at 11:41; Start 02/25/20 at 11:30; Stop 02/27/20 at 03:42; Status DC Warfarin Sodium (Coumadin) 6 mg 1X WARF ONCE PO Last administered on 02/25/20at 17:21; Start 02/25/20 at 16:00; Stop 02/25/20 at 16:01; Status DC Lactobacillus Rhamnosus (Culturelle) 1 cap BID PO Last administered on 03/09/20at 08:13; Start 02/25/20 at 21:00 Amoxicillin/ Clavulanate Potassium (Augmentin 875/ 125mg) 1 tab BID PO Last administered on 03/01/20at 20:32; Start 02/26/20 at 21:00; Stop 03/01/20 at 21:59; Status DC Hydralazine HCl (Apresoline) 50 mg TID PO Last administered on 02/26/20at 13:34; Start 02/26/20 at 14:00; Stop 02/26/20 at 16:25; Status DC Zinc Sulfate (Orazinc) 220 mg DAILY PO Last administered on 03/09/20at 08:13; Start 02/27/20 at 09:00 Latanoprost (Xalatan) 1 drop QHS OU Last administered on 03/08/20at 21:03; Start 02/26/20 at 12:45 Diltiazem HCl (Cardizem 24hr Cd) 300 mg DAILYWLUN PO ; Start 02/27/20 at 12:00; Stop 02/28/20 at 08:56; Status DC Hydralazine HCl (Apresoline) 75 mg TID PO Last administered on 03/01/20at 09:14; Start 02/26/20 at 21:00; Stop 03/01/20 at 10:22; Status DC Metoprolol Tartrate (Lopressor) 50 mg BID PO Last administered on 03/09/20at 08:15; Start 02/27/20 at 21:00 Amlodipine Besylate (Norvasc) 10 mg DAILY ONCE PO ; Start 02/28/20 at 09:00; Stop 02/27/20 at 11:57; Status DC Nitroglycerin (Nitro-Bid Oint) 1 inch Q6HRS TP Last administered on 03/03/20at 12:16; Start 02/27/20 at 12:00; Stop 03/03/20 at 14:32; Status DC Amlodipine Besylate (Norvasc) 10 mg 1X ONCE PO Last administered on 02/27/20at 12:28; Start 02/27/20 at 12:00; Stop 02/27/20 at 12:01; Status DC Ondansetron HCl (Zofran Odt) 4 mg PRN Q6HRS PRN PO NAUSEA/VOMITING Last administered on 02/27/20at 15:08; Start 02/27/20 at 13:15 Prochlorperazine Edisylate (Compazine) 10 mg PRN Q6HRS PRN IM NAUSEA/VOMITING Last administered on 02/29/20at 18:55; Start 02/27/20 at 13:15 Metoprolol Tartrate (Lopressor) 50 mg 1X ONCE PO ; Start 02/27/20 at 14:00; Stop 02/27/20 at 14:01; Status DC Amlodipine Besylate (Norvasc) 10 mg DAILY PO Last administered on 03/09/20at 08:15; Start 02/28/20 at 09:00 Warfarin Sodium (Coumadin) 6 mg 1X WARF ONCE PO Last administered on 02/27/20at 15:09; Start 02/27/20 at 16:00; Stop 02/27/20 at 16:01; Status DC Lisinopril (Prinivil) 20 mg DAILY PO Last administered on 02/29/20at 08:30; Start 02/28/20 at 09:00; Stop 02/29/20 at 11:28; Status DC Enoxaparin Sodium (Lovenox 80mg Syringe) 80 mg Q12HR SQ Last administered on 03/02/20at 09:12; Start 02/28/20 at 12:15; Stop 03/02/20 at 15:58; Status DC Warfarin Sodium (Coumadin) 9 mg 1X WARF ONCE PO Last administered on 02/28/20at 17:16; Start 02/28/20 at 16:00; Stop 02/28/20 at 16:01; Status DC Warfarin Sodium (Coumadin) 9 mg 1X WARF ONCE PO Last administered on 02/29/20at 16:55; Start 02/29/20 at 16:00; Stop 02/29/20 at 16:01; Status DC Lisinopril (Prinivil) 40 mg DAILY PO Last administered on 03/09/20at 08:16; Start 03/01/20 at 09:00 Lisinopril (Prinivil) 20 mg 1X ONCE PO Last administered on 02/29/20at 14:42; Start 02/29/20 at 12:30; Stop 02/29/20 at 12:31; Status DC Hydralazine HCl (Apresoline) 100 mg TID PO Last administered on 03/09/20 08:15; Start 03/01/20 at 14:00 Warfarin Sodium (Coumadin) 9 mg 1X WARF ONCE PO Last administered on 03/01/20at 17:59; Start 03/01/20 at 16:00; Stop 03/01/20 at 16:01; Status DC Isosorbide Mononitrate (Imdur) 30 mg DAILY PO Last administered on 03/09/20 08:14; Start 03/02/20 at 15:00 Warfarin Sodium (Coumadin) 7.5 mg 1X WARF ONCE PO Last administered on 03/02/20at 16:06; Start 03/02/20 at 16:00; Stop 03/02/20 at 16:01; Status DC Ondansetron HCl (Zofran) 4 mg 1X ONCE IM Last administered on 03/02/20 16:07; Start 03/02/20 at 16:15; Stop 03/02/20 at 16:16; Status DC Warfarin Sodium (Coumadin) 6 mg 1X WARF ONCE PO Last administered on 03/03/20at 16:35; Start 03/03/20 at 16:00; Stop 03/03/20 at 16:01; Status DC Warfarin Sodium (Coumadin) 3 mg 1X WARF ONCE PO Last administered on 03/04/20at 16:54; Start 5/20/20 at 16:00; Stop 03/04/20 at 16:01; Status DC Warfarin Sodium (Coumadin) 3 mg 1X ONCE PO Last administered on 03/05/20at 17:45; Start 03/05/20 at 18:00; Stop 03/05/20 at 18:01; Status DC Warfarin Sodium (Coumadin) 3 mg 1X WARF ONCE PO Last administered on 03/06/20at 16:10; Start 03/06/20 at 16:00; Stop 03/06/20 at 16:01; Status DC Warfarin Sodium (Coumadin) 4 mg 1X WARF ONCE PO Last administered on 03/07/20at 16:37; Start 03/07/20 at 16:00; Stop 03/07/20 at 16:01; Status DC Nystatin (Nystop) 1 [place] BID TP Last administered on 03/09/20at 08:17; Start 03/08/20 at 11:00 Enoxaparin Sodium (Lovenox 120mg Syringe) 120 mg Q12HR SQ Last administered on 03/09/20at 08:16; Start 03/08/20 at 12:00 Warfarin Sodium (Coumadin) 6 mg 1X WARF ONCE PO Last administered on 03/08/20at 15:11; Start 03/08/20 at 16:00; Stop 03/08/20 at 16:01; Status DC Warfarin Sodium (Coumadin) 6 mg 1X WARF ONCE PO ; Start 03/09/20 at 16:00; Stop 03/09/20 at 16:01 Magnesium Citrate (Citroma) 296 ml 1X ONCE PO ; Start 03/09/20 at 14:00; Stop 03/09/20 at 14:01 Active Scripts Active Nystop (Nystatin) 60 Gm Powder 1 [place] TP BID 30 Days Latanoprost 2.5 Ml Drops 1 Drop OU QHS 30 Days Amlodipine Besylate 10 Mg Tablet 10 Mg PO DAILY 30 Days Isosorbide Mononitrate Er (Isosorbide Mononitrate) 30 Mg Tab.er.24h 30 Mg PO DAILY 30 Days Enoxaparin Sodium 120 Mg/0.8 Ml Disp.syrin 120 Mg SQ Q12HR 5 Days Metoprolol Tartrate 50 Mg Tablet 50 Mg PO BID 30 Days Hydralazine Hcl 25 Mg Tablet 4 Tab PO TID 30 Days Lisinopril 10 Mg Tablet 40 Mg PO DAILY 30 Days Atorvastatin Calcium 20 Mg Tablet 20 Mg PO QHS 30 Days Tylenol (Acetaminophen) 325 Mg Tablet 650 Mg PO PRN Q6HRS PRN 30 Days Coumadin (Warfarin Sodium) 3 Mg Tablet 6 Mg PO DAILY16 30 Days Lanoxin (Digoxin) 125 Mcg Tablet 125 Mcg PO DAILY 30 Days [Albuterol Sulfate] 2.5 MG/3 ML Nebu 2.5 Mg NEB PRN Q4HRS PRN Reported Ventolin Hfa Inhaler (Albuterol Sulfate) 18 Gm Hfa.aer.ad 2 Puff INH Q4HRS Combivent Respimat Inhal (Ipratropium/Albuterol Sulfate) 4 Gm Aer.w.adap 2 Inh IH QID Loratadine 10 Mg Tablet 10 Mg PO DAILY Loperamide (Loperamide Hcl) 2 Mg Tablet 2 Mg PO PRN Q4HRS PRN Furosemide 40 Mg Tablet 40 Mg PO DAILY Warfarin Sodium 1 Mg Tablet 0.5 Mg PO DAILY Wellbutrin Sr (Bupropion Hcl) 150 Mg Tablet.er 150 Mg PO DAILY Novolog (Insulin Aspart) 100 Unit/1 Ml Cartridge 15 Unit SQ TID Aspirin Ec (Aspirin) 81 Mg Tablet.dr 1 Tab PO DAILY Fluticasone Propionate Nasal [place] (Fluticasone Propionate) 16 Gm [place].susp 2 [place] NS DAILY LAST DOSE GIVEN: DATE: 10-13-15 TIME: 9 am NEXT DOSE DUE: DATE: 10-14-15 TIME: 9 am Vitamin D2 (Ergocalciferol (Vitamin D2)) 50,000 Unit Capsule 1 Cap PO QSA Vitals/I & O Vital Sign - Last 24 Hours 03/08/20 03/08/20 03/08/20 03/08/20 15:00 19:00 20:01 21:05 Temp 97.9 98.0 97.9 98.0 Pulse 84 76 76 Resp 18 19 B/P (MAP) 113/65 (81) 119/58 (78) 119/58 Pulse Ox 97 96 O2 Delivery Nasal Cannula Nasal Cannula Nasal Cannula O2 Flow Rate 2.0 2.0 2.0 03/08/20 03/08/20 03/09/20 03/09/20 21:06 23:01 03:23 07:00 Temp 98.2 97.8 97.5 98.2 97.8 97.5 Pulse 80 74 87 Resp 19 18 18 B/P (MAP) 119/58 119/55 (76) 120/71 (87) 132/71 (91) Pulse Ox 98 96 100 O2 Delivery Nasal Cannula Nasal Cannula Nasal Cannula O2 Flow Rate 2.0 2.0 2.0 03/09/20 03/09/20 03/09/20 03/09/20 08:00 08:14 08:15 08:15 Pulse 87 87 87 B/P (MAP) 132/71 132/71 132/71 O2 Delivery Nasal Cannula O2 Flow Rate 2.0 03/09/20 03/09/20 03/09/20 08:15 08:16 11:00 Temp 97.5 97.5 Pulse 87 87 84 Resp 18 B/P (MAP) 132/71 132/71 103/57 (72) Pulse Ox 100 O2 Delivery Nasal Cannula O2 Flow Rate 2.0 Intake and Output 03/08/20 03/08/20 03/09/20 15:00 23:00 07:00 Intake Total 600 ml 240 ml Output Total 250 ml Balance 350 ml 240 ml JUNITO JOHNSTON MD March 09, 2020 13:57
[2020-03-09] MEDS ORDERED: MAGNESIUM CITRATE 296 ML SOLUTION. PO ONE (14:00)
[2020-03-09 15:00] VITALS: BP 125/69
--- NOTE | 2020-03-09 15:39 | PDOC3 ---
Discharge Summary Visit Information Date of Admission: February 23, 2020 Date of Discharge: March 09, 2020 Admitting Diagnosis: Acute hypoxic respiratory failure Final Diagnosis Problems Medical Problems: (1) COVID-19 Status: Acute (2) Hypertensive urgency Status: Acute (3) Pneumonia Status: Acute (4) Vertigo Status: Acute Brief Hospital Course Allergies Allergies Coded Allergies Type Severity Reaction Last Updated Verified fexofenadine Allergy Intermediate Palpitations 10/04/15 Yes Vital Signs Vital Signs Date Time Temp Pulse Resp B/P (MAP) Pulse Ox O2 Delivery O2 Flow Rate FiO2 03/09/20 14:56 84 103/57 03/09/20 11:00 97.5 18 100 Nasal Cannula 2.0 97.5 Lab Results Laboratory Tests Test 03/07/20 16:20 03/07/20 21:12 03/08/20 04:15 03/08/20 07:56 Glucose (Fingerstick) 151 mg/dL (70-99) 123 mg/dL (70-99) 143 mg/dL (70-99) Prothrombin Time 17.2 SEC (11.7-14.0) Prothromb Time International Ratio 1.4 (0.8-1.1) Test 03/08/20 11:21 03/08/20 15:22 03/08/20 20:54 03/09/20 03:25 Glucose (Fingerstick) 141 mg/dL (70-99) 210 mg/dL (70-99) 132 mg/dL (70-99) Prothrombin Time 18.1 SEC (11.7-14.0) Prothromb Time International Ratio 1.5 (0.8-1.1) Test 03/09/20 07:40 03/09/20 11:42 Glucose (Fingerstick) 112 mg/dL (70-99) 132 mg/dL (70-99) Laboratory Tests Test 03/08/20 20:54 03/09/20 03:25 03/09/20 07:40 03/09/20 11:42 Glucose (Fingerstick) 132 mg/dL (70-99) 112 mg/dL (70-99) 132 mg/dL (70-99) Prothrombin Time 18.1 SEC (11.7-14.0) Prothromb Time International Ratio 1.5 (0.8-1.1) Brief Hospital Course Ms Yang is a 74 yo F resident of [facility] w/ PMHx HTN, Hyperlipidemia, AFIB, valvular insufficiency, CHF, cardiomyopathy, COPD, Depression, DM2 who p/w cough, shortness of breath, diarrhea for the last 3-4 days. was recently tested for COVID-19 and was positive. Now, she has nausea, vomiting, and diarrhea. She has some associated dizziness. This has been occurring off and on for a few days, worse with moving, better with sitting still. She gets fatigued easily. Her dizziness worsens with change in position. She has underlying COPD, but states her shortness of breath is worse. While in the ER, she is noted to have a low-grade temperature of 100.5. She also has a mild white count elevation 13K. Chest x-ray is showing a possible atypical pneumonia. Was called for admission for further treatment In ED noted in afib, normal troponin. CXR with no acute findings. BNP 1212, K 5.2, Cr 1.1, glucose 173. Admitted for further care of Hypertensive urgency. Chest x-ray showed bilateral diffuse interstitial infiltrate and cardiomegaly. The patient received Rocephin and azithromycin 1 dose each from the ER. 02/24: States her breathing is okay, although she is normally not on oxygen. She is requiring 3 L of oxygen. Denies now any nausea, vomiting, or diarrhea which she has had, she says. Denies any abdominal pain, urinary symptoms, headache, or visual symptoms. 02/25: She is complaining blurred vision in her right eye today. No focal neurologic deficits otherwise. She lost IV access, has been converted to p.o. antibiotics and p.o. antihypertensives. 02/26: Overnight bradycardic, metoprolol had been increased to 75 mg, now reduced to 25 mg twice daily, still has Cardizem 300 mg daily. Lost IV access. SBP 198 today. HR in the 80s. Still feels very weak. 02/27: BP better controlled. On amlodipine 10 mg, lisinopril 20 mg, metoprolol. Still hypoxic still very weak still with some right eye blurring. She says she feels terrible and tired. 02/28: Overnight no events. Afebrile BP better controlled. Still hypoxic. Still with blurred vision in her right eye. Still dizzy and nauseated. 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 Neuro consult. 03/01: Overnight no events. Afebrile. BP controlled. Still hypoxic. Uncoordination and right visual blurring persist. CT results concerning for possible right cerebellar mass and left basal ganglia infarct. 03/02: Neurology advanced manufacturing consultant recommendations greatly appreciated. Continue with current treatment plan in light of his slow improvement, holding off on doing MRI given the stability of her clinical picture. 03/03: Patient from the neurosurgical standpoint of view according to nursing staff is okay to be dismissed despite not having an MRI which can be done in the outpatient setting, patient seems to be not progressing much we will continue to monitor for the next 24 hours 03/04: Patient overall stable, contacted my CM regarding nursing staff concerns about patient's dizziness. we will observe for 24 hours. Neuro advanced manufacturing consultant should be back in the am hopefully will discharge soon 03/05: Patient continues to be quite dizzy, the patient lives in assisted living facility and physical therapy has recommended inpatient rehab for her discharge. We have requested 80 from case management in order to manage her disposition at this point. 03/06: No acute events reported overnight, case discussed with nursing staff patient in no acute distress no complaints during my visit 03/07: No acute events reported overnight, case discussed with nursing staff patient in no acute distress no complaints during my visit, physical therapy evaluated patient today, awaiting for available bed at acute rehab facility 03/08: Vision improving Overnight no events. INR low again Still very weak. She is optimistic about rehab. Vision near baseline Problem list: Coronavirus infection Cough - with shortness of breath. Secondary to acute COPD exacerbation. Improved Diarrhea - will monitor, psyllium HTN - cont meds Hyperlipidemia - cont statin AFIB - on BB and coumadin, will continue, monitor INR CHF - unknown if ischemic cardiomyopathy, seems compensated currently Acute exacerbation of COPD - as above Depression - cont meds DM2 - basal bolus plus insulin while inpatient Visual blurring - likely glaucoma, difficult to test pressure here, currently on lananoprost (prostaglandin) daily, seems to have improved her vision but not recovered completely. Will need outpatient formal ophtalmological evaluation once she recovers from her covid 19 infection. 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 Cerebral chronic ischemic microvascular changes Left basal ganglia lacunar infarct Plan: Will add lovenox, suptherapeutic INR. Monitor BP Formal visual examination, no clear signs of increased ocular pressure Hold on MRI, risks outweigh benefits in this COVID positive patient. Do MRI in 2 weeks, if still positive then We would not do brain surgery in COVID + patient unless emergent Ophthalmology evaluation as outpatient Rehabilitation modalities [facility] Information Condition at Discharge: Improved Follow Up: Weeks (1) Disposition/Orders: D/C to Another Facility Scheduled Albuterol Sulfate (Ventolin Hfa Inhaler) 18 Gm Hfa.aer.ad, 2 PUFF INH Q4HRS for FOR ASTHMA, Ref 0 (Reported) Entered as Reported by: ISABEL GONZALEZ on 02/24/20826 Last Action: New Order on 02/24/20826 by ISABEL GONZALEZ Amlodipine Besylate (Amlodipine Besylate) 10 Mg Tablet, 10 MG PO DAILY for HTN for 30 Days, #30 Prescribed by: SHARRON GRUBBS MD on 03/09/20 1339 Aspirin (Aspirin Ec) 81 Mg Tablet.dr, 1 TAB PO DAILY for circulations, #30 Ref 3 (Reported) Entered as Reported by: Colby Awad on 05/21/19 1144 Last Action: Continued on 02/24/201209 by ISABEL GONZALEZ Atorvastatin Calcium (Atorvastatin Calcium) 20 Mg Tablet, 20 MG PO QHS for ch olesterol for 30 Days, #30 Prescribed by: FLO RUIZ MD on 05/24/19 1152 Last Action: Continued on 02/24/201209 by ISABEL GONZALEZ Bupropion Hcl (Wellbutrin Sr) 150 Mg Tablet.er, 150 MG PO DAILY for antidepresant, (Reported) Entered as Reported by: Colby Awad on 05/21/19 114 Last Action: Continued on 02/24/201209 by ISABEL GONZALEZ Digoxin (Lanoxin) 125 Mcg Tablet, 125 MCG PO DAILY for 30 Days Prescribed by: LINDA RG MD on 10/13/15 0830 Last Action: Continued on 02/24/201209 by ISABEL GONZALEZ Enoxaparin Sodium (Enoxaparin Sodium) 120 Mg/0.8 Ml Disp.syrin, 120 MG SQ Q12HR for AFib for 5 Days, #10 Prescribed by: SHARRON GRUBBS MD on 03/09/20 1339 Ergocalciferol (Vitamin D2) (Vitamin D2) 50,000 Unit Capsule, 1 CAP PO QSA for supplement, #4 Ref 5 (Reported) Entered as Reported by: MELISSA STREETER on 06/23/151534 Last Action: Continued on 02/24/201209 by ISABEL GONZALEZ Fluticasone Propionate (Fluticasone Propionate Nasal [place]) 16 Gm [place].susp, 2 SPRAY NS DAILY, #1 Ref 11 (Reported) LAST DOSE GIVEN: DATE: 10-13-15 TIME: 9 am NEXT DOSE DUE: DATE: 10-14-15 TIME: 9 am Entered as Reported by: MELISSA STREETER on 06/23/151534 Last Action: Continued on 02/24/201209 by ISABEL GONZALEZ Furosemide (Furosemide) 40 Mg Tablet, 40 MG PO DAILY for diuretic, (Reported) Entered as Reported by: ISABEL GONZALEZ on 02/24/20826 Last Action: Continued on 02/24/201209 by ISABEL GONZALEZ Hydralazine Hcl (Hydralazine Hcl) 25 Mg Tablet, 4 TAB PO TID for blood pressure for 30 Days, #360 Ref 5 Prescribed by: SHARRON GRUBBS MD on 03/09/20 1339 Insulin Aspart (Novolog) 100 Unit/1 Ml Cartridge, 15 UNIT SQ TID for glucose control, (Reported) Entered as Reported by: Colby Awad on 05/21/19 1144 Last Action: Converted on 02/24/201209 by ISABEL GONZALEZ Ipratropium/Albuterol Sulfate (Combivent Respimat Inhal) 4 Gm Aer.w.adap, 2 INH IH QID for copd, (Reported) Entered as Reported by: ISABEL GONZALEZ on 02/24/20826 Last Action: New Order on 02/24/20826 by ISABEL GONZALEZ Isosorbide Mononitrate (Isosorbide Mononitrate Er) 30 Mg Tab.er.24h, 30 MG PO DAILY for HTN for 30 Days, #30 Prescribed by: SHARRON GRUBBS MD on 03/09/20 1339 Latanoprost (Latanoprost) 2.5 Ml Drops, 1 DROP OU QHS for Glaucoma for 30 Days, #30 Prescribed by: SHARRON GRUBBS MD on 03/09/20 1339 Lisinopril (Lisinopril) 10 Mg Tablet, 40 MG PO DAILY for heart/bp/kidneys for 30 Days, #120 Prescribed by: SHARRON GRUBBS MD on 03/09/20 1339 Loratadine (Loratadine) 10 Mg Tablet, 10 MG PO DAILY for allergies, (Reported) Entered as Reported by: ISABEL GONZALEZ on 02/24/20826 Last Action: Converted on 02/24/201209 by ISABEL GONZALEZ Metoprolol Tartrate (Metoprolol Tartrate) 50 Mg Tablet, 50 MG PO BID for FOR HYPERTENSION for 30 Days, #60 Ref 0 Prescribed by: SHARRON GRUBBS MD on 03/09/20 1339 Nystatin (Nystop) 60 Gm Powder, 1 ANDREIA TP BID for intertrigo for 30 Days, #30 Prescribed by: SHARRON GRUBBS MD on 03/09/20 1339 Warfarin Sodium (Coumadin) 3 Mg Tablet, 6 MG PO DAILY16 for afib for 30 Days, #60 Prescribed by: FLO RUIZ MD on 05/24/191151 Last Action: Continued on 02/24/201209 by ISABEL GONZALEZ Warfarin Sodium (Warfarin Sodium) 1 Mg Tablet, 0.5 MG PO DAILY for blood thinner, (Reported) Entered as Reported by: ISABEL GONZALEZ on 02/24/20826 Last Action: Continued on 02/24/201209 by ISABEL GONZALEZ Scheduled PRN Acetaminophen (Tylenol) 325 Mg Tablet, 650 MG PO PRN Q6HRS PRN for PAIN for 30 Days, #100 Prescribed by: FLO RUIZ MD on 05/24/191151 Last Action: Continued on 02/24/201209 by ISABEL GONZALEZ Loperamide Hcl (Loperamide) 2 Mg Tablet, 2 MG PO PRN Q4HRS PRN for DIARRHEA, (Reported) Entered as Reported by: ISABEL GONZALEZ on 02/24/20826 Last Action: Converted on 02/24/201209 by ISABEL GONZALEZ [Albuterol Sulfate] 2.5 MG/3 ML NEBU, 2.5 MG NEB PRN Q4HRS PRN for SHORTNESS OF BREATH Prescribed by: TRISHA RUIZ on 06/25/15907 Last Action: Reviewed on 02/24/20826 by ISABEL GONZALEZ Discontinued Medications Diltiazem Hcl (Diltiazem 24HR Cd) 300 Mg Cap.er.24h, 300 MG PO DAILY for 30 Days Prescribed by: LINDA RG MD on 10/13/15829 Last Action: Continued on 02/24/201209 by SHARRON ALBRECHT MD March 09, 2020 15:39
--- NOTE | 2020-03-09 15:58 | NUR ---
Spoke to Parviz of [facility] clarifying that patient is medicaid and covid positive. This nurse was told that they are aware and taking the patient today. Report called to Eileen SEWELL of the facility and explained to her that she's been afebrile for 2 weeks and not having symptoms. Dr. Braden was likewise updated of the patient's planned discharge today. This nurse left a message to patient's daughter, Jeannie, notifying her of discharge from hospital.
[2020-03-09] MEDS ORDERED: WARFARIN 3 MG TABLET. PO ONE (16:00)
--- NOTE | 2020-03-09 18:21 | NUR ---
Discharge Note: MICHAELA COOPER [address] Discharge instructions and discharge home medications reviewed with Eileen SEWELL of [facility] and a copy given to transport personnel. All questions have been answered and understanding verbalized. The following instructions and handouts were given: Meds as directed. Follow up with Neuro. MRI in 2 weeks Watch out for new neuro deficits. Discontinued lines and drains: peripheral IV intact, patient tolerated removal, no complications noted Patient discharged to [facility] via wheelchair on O2 at 2lpm accompanied by transport personnel at 1630.
== END 2020-03-09 16:30 | DRG 871 ==
LOC: ER 19:18 → 1 WEST ICU 22:46 → 6 SOUTH 02-24 11:28
PROVIDERS: ADMIT Family Medicine; ATTEND Family Medicine
DX: A41.89 Other specified sepsis (principal); U07.1 COVID-19; I50.33 Acute on chronic diastolic (congestive) heart failure; J96.01 Acute respiratory failure with hypoxia; J12.89 Other viral pneumonia; J44.1 Chronic obstructive pulmonary disease with (acute) exacerbation; I42.9 Cardiomyopathy, unspecified; J44.0 Chronic obstructive pulmonary disease with (acute) lower respiratory infection; Z68.42 Body mass index [BMI] 45.0-49.9, adult; F41.9 Anxiety disorder, unspecified; E11.9 Type 2 diabetes mellitus without complications; E78.00 Pure hypercholesterolemia, unspecified; I11.0 Hypertensive heart disease with heart failure; I16.0 Hypertensive urgency; E78.5 Hyperlipidemia, unspecified; I48.0 Paroxysmal atrial fibrillation; F32.9 Major depressive disorder, single episode, unspecified; F03.90 Unspecified dementia, unspecified severity, without behavioral disturbance, psychotic disturbance, mood disturbance, and anxiety; Z90.710 Acquired absence of both cervix and uterus; Z90.49 Acquired absence of other specified parts of digestive tract; Z87.891 Personal history of nicotine dependence; Z83.3 Family history of diabetes mellitus; Z82.49 Family history of ischemic heart disease and other diseases of the circulatory system; Z79.899 Other long term (current) drug therapy; Z79.01 Long term (current) use of anticoagulants; Z98.51 Tubal ligation status; Z88.8 Allergy status to other drugs, medicaments and biological substances; E66.9 Obesity, unspecified
CPT/HCPCS: 36415; 36600; 70450; 71045; 80048; 80053; 80061; 80162; 82607; 82805; 82962; 83735; 84145; 84443; 84484; 85007; 85025; 85610; 85651; 87040; 93005; 93880; 96361; 96374; 96375; 99285; J0360; J0696; J0780; J1650; J1815; J1940; J2020; J2060; J2405; J2543; J7030; Q0162; 97110-GO; 97110-GP; 97116-GP; 97530-GO; 97530-GP; 97535-GO; G0378; J8597

== ENCOUNTER 2020-06-07 10:46 | Observation (INO) | payer MEDICARE, MEDICAID ==
[~2020-06-07] VITALS: Ht 162.6 cm; Wt 128.1 kg
[~2020-06-07 10:46] MED LIST changes: -ASPI-612 PO; +ASPI-886 PO; +ENOX120D3 SQ; +IPRA4AER IH; +ISOS30TA4 PO; +LATA2.5D3 OU; +LOPE2TAB27 PO; +LORA10TA3 PO; +NYST60PO TP; +VENTOLIN HFA18 GM INH; +WARF1TAB69 PO
--- NOTE | 2020-06-07 11:27 | PHYS DOC ---
Past Medical History Past Medical History: A-Fib, Anxiety, CHF, COPD, Diabetes-Type II, High C holesterol, Hypertension Past Surgical History: Appendectomy, Cholecystectomy, , Hysterectomy, Tubal ligation, Other Additional Past Surgical Histo: bladder Smoking Status: Never Smoker Alcohol Use: None Drug Use: None General Adult EDM: Chief Complaint: SHORTNESS OF BREATH HPI: HPI: Patient is a 75 year old female presents with a chief complaint of shortness of breath over the last week. Patient describes orthopnea and PND. Patient denies any chest pain or cough or shortness of breath. There has been a 10 pound weight gain over the last week or so. Patient is experiencing renal failure and is possibly a future dialysis candidate. Symptoms are worse with exertion and lying flat. Review of Systems: Review of Systems: Constitutional: Denies fever or chills. [] Eyes: Denies change in visual acuity. [] HENT: Denies nasal congestion or sore throat. [] Respiratory: Denies cough but has shortness of breath Cardiovascular: Denies chest pain but has edema in her legS GI: Denies abdominal pain, nausea, vomiting, bloody stools or diarrhea. [] : Denies dysuria. [] Musculoskeletal: Denies back pain or joint pain. [] Integument: Denies rash. [] Neurologic: Denies headache, focal weakness or sensory changes. [] Endocrine: Denies polyuria or polydipsia. [] Lymphatic: Denies swollen glands. [] Psychiatric: Denies depression or anxiety. [] Heart Score: Risk Factors: Risk Factors: DM, Current or recent (<one month) smoker, HTN, HLP, family history of CAD, obesity. Risk Scores: Score 0 - 3: 2.5% MACE over next 6 weeks - Discharge Home Score 4 - 6: 20.3% MACE over next 6 weeks - Admit for Clinical Observation Score 7 - 10: 72.7% MACE over next 6 weeks - Early Invasive Strategies Allergies: Allergies: Allergies Coded Allergies Type Severity Reaction Last Updated Verified fexofenadine Allergy Intermediate Palpitations 15 Yes Physical Exam: PE: Constitutional: Well developed, well nourished, no acute distress, non-toxic appearance. [] HENT: Normocephalic, atraumatic, bilateral external ears normal, nose normal. [] Eyes: PERRLA, EOMI, conjunctiva normal, no discharge. [] Neck: Normal range of motion, no tenderness, supple, no stridor. [] Cardiovascular: Irregularly irregular, pulses intact, cap refill brisk Lungs & Thorax: Diminished breath sounds bilaterally Abdomen: Bowel sounds normal, soft, no tenderness, no masses, no pulsatile masses. [] Skin: Warm, dry, no erythema, no rash. [] Back: No tenderness, no CVA tenderness. [] Extremities: No tenderness, no cyanosis, no clubbing, ROM intact, 2+ bilateral extremity edema Neurologic: Alert and oriented X 3, normal motor function, normal sensory function, no focal deficits noted. [] Psychologic: Affect normal, judgement normal, mood normal. [] Current Patient Data: Labs: Laboratory Tests Test 06/07/20 11:15 White Blood Count 8.1 x10^3/uL Red Blood Count 4.33 x10^6/uL Hemoglobin 10.6 g/dL Hematocrit 32.8 % Mean Corpuscular Volume 76 fL Mean Corpuscular Hemoglobin 25 pg Mean Corpuscular Hemoglobin Concent 32 g/dL Red Cell Distribution Width 23.3 % Platelet Count 302 x10^3/uL Neutrophils (%) (Auto) 78 % Lymphocytes (%) (Auto) 11 % Monocytes (%) (Auto) 8 % Eosinophils (%) (Auto) 3 % Basophils (%) (Auto) 0 % Neutrophils # (Auto) 6.2 x10^3/uL Lymphocytes # (Auto) 0.9 x10^3/uL Monocytes # (Auto) 0.7 x10^3/uL Eosinophils # (Auto) 0.3 x10^3/uL Basophils # (Auto) 0.0 x10^3/uL Platelet Estimate Pending Prothrombin Time 24.6 SEC Prothromb Time International Ratio 2.2 Activated Partial Thromboplast Time 41 SEC Sodium Level 140 mmol/L Potassium Level 4.3 mmol/L Chloride Level 104 mmol/L Carbon Dioxide Level 31 mmol/L Anion Gap 5 Blood Urea Nitrogen 17 mg/dL Creatinine 1.1 mg/dL Estimated GFR (Cockcroft-Gault) 48.6 BUN/Creatinine Ratio 15 Glucose Level 245 mg/dL Calcium Level 8.7 mg/dL Magnesium Level 1.8 mg/dL Total Bilirubin 0.6 mg/dL Aspartate Amino Transf (AST/SGOT) 15 U/L Alanine Aminotransferase (ALT/SGPT) 11 U/L Alkaline Phosphatase 93 U/L Troponin I Quantitative < 0.017 ng/mL YO-War-F-Type Natriuretic Peptide 959 pg/mL Total Protein 6.6 g/dL Albumin 3.0 g/dL Albumin/Globulin Ratio 0.8 Digoxin Level 0.8 ng/mL Digoxin Last Dose Date Unknown Digoxin Last Dose Time Unknown Current Medications Medications (Trade) Dose Ordered Sig/Shikha Route PRN Reason Start Time Stop Time Status Last Admin Dose Admin Furosemide (Lasix) 40 mg 1X ONCE IVP 06/07/20 13:00 06/07/20 13:01 Vital Signs: Vital Signs Date Time Temp Pulse Resp B/P (MAP) Pulse Ox O2 Delivery O2 Flow Rate FiO2 06/07/20 11:15 98.0 58 22 135/82 (99) 97 Room Air 98.0 EKG: EKG: [] EKG interpreted by ma atrial fibrillation with a rate of 59 left axis de viation nonspecific ST changes Radiology/Procedures: Radiology/Procedures: [][facility] [address] [place] [address] IMAGING REPORT Signed PATIENT: MICHAELA COOPER SACCOUNT: [id number] : 1945 LOCATION: ER AGE: 75 SEX: F EXAM STATUS: PRE ER ORD. PHYSICIAN: PARISH RICHARDSON MD REASON: soa PROCEDURE: PORTABLE CHEST 1V EXAM: Chest, single view. HISTORY: Shortness of air. COMPARISON: 02/23/2020 FINDINGS: A frontal view of the chest is obtained. There is stable mild diffuse interstitial prominence. There is stable linear atelectasis within the right mid thorax along the minor fissure. There is a stable prominent cardiac silhouette. There is no pleural effusion or pneumothorax. IMPRESSION: Stable diffuse interstitial prominence and enlarged cardiac silhouette. Electronically signed by: Jenn Vinson MD (06/07/2020 11:35 AM) [facility] DICTATED and SIGNED BY: JENN VINSON MD DATE: 06/07/20 1343 Course & Med Decision Making: Course & Med Decision Making Pertinent Labs and Imaging studies reviewed. (See chart for details) [] 75-year-old female presents with PND and orthopnea. Patient has had significant trouble getting around with a significant weight gain over the last week. Patient could benefit from some IV Lasix and diuresis. Patient has history of kidney disease and will need close monitoring of her renal function. Discussed with Dr. pulliam who has noted. Dragon Disclaimer: Dragon Disclaimer: This electronic medical record was generated, in whole or in part, using a voice recognition dictation system. Departure Departure Impression: Primary Impression: Volume overload Additional Impression: Dyspnea Disposition: ADMITTED INPATIENT Admitting Physician: KATHI (carmine) Condition: STABLE Referrals: VARGAS SETH MD (PCP) Justicifation of Admission Dx: Justifications for Admission: Justification of Admission Dx: Yes PARISH RICHARDSON MD Jun 07, 2020 11:27
[2020-06-07 11:33] LABS: BASO % 0 % (0-3); EOS # 0.3 x10^3/uL (0.0-0.7); EOS % 3 % (0-3); HEMATOCRIT 32.8 % (36.0-47.0); HEMOGLOBIN 10.6 g/dL (12.0-15.5); LYMPH # 0.9 x10^3/uL (1.0-4.8); LYMPH % 11 % (24-48); MEAN CORPUSCULAR HEMOGLOBIN 25 pg (25-35); MEAN CORPUSCULAR HGB CONC 32 g/dL (31-37); MEAN CORPUSCULAR VOLUME 76 fL (79-100); MONO # 0.7 x10^3/uL (0.0-1.1); MONO % 8 % (0-9); NEUT # 6.2 x10^3/uL (1.8-7.7); NEUT % 78 % (31-73); PLATELET COUNT 302 x10^3/uL (140-400); RED BLOOD COUNT 4.33 x10^6/uL (3.50-5.40); RED CELL DISTRIBUTION WIDTH 23.3 % (11.5-14.5); WHITE BLOOD COUNT 8.1 x10^3/uL (4.0-11.0)
--- NOTE | 2020-06-07 11:38 | RAD ---
EXAM: Chest, single view. HISTORY: Shortness of air. COMPARISON: 02/23/2020 FINDINGS: A frontal view of the chest is obtained. There is stable mild diffuse interstitial prominence. There is stable linear atelectasis within the right mid thorax along the minor fissure. There is a stable prominent cardiac silhouette. There is no pleural effusion or pneumothorax. IMPRESSION: Stable diffuse interstitial prominence and enlarged cardiac silhouette. Electronically signed by: Jenn Bhandari MD (06/07/2020 11:35 AM) [facility]
[2020-06-07 11:42] LABS: ANION GAP 5 (6-14); BLOOD UREA NITROGEN 17 mg/dL (7-20); BUN/CREATININE RATIO 15 (6-20); CALCIUM 8.7 mg/dL (8.5-10.1); CARBON DIOXIDE 31 mmol/L (21-32); CHLORIDE 104 mmol/L (98-107); CREATININE 1.1 mg/dL (0.6-1.0); GFR 48.6; GLUCOSE 245 mg/dL (70-99); POTASSIUM 4.3 mmol/L (3.5-5.1); SODIUM 140 mmol/L (136-145)
[2020-06-07 11:44] LABS: PROTHROMBIN TIME PATIENT 24.6 SEC (11.7-14.0)
[2020-06-07 11:50] LABS: ALBUMIN/GLOBULIN RATIO 0.8 (1.0-1.7); ALK PHOS 93 U/L (46-116); ALT (SGPT) 11 U/L (14-59); AST (SGOT) 15 U/L (15-37); DIG 0.8 ng/mL (0.9-2.0); MAGNESIUM 1.8 mg/dL (1.8-2.4); TOTAL BILIRUBIN 0.6 mg/dL (0.2-1.0); TOTAL PROTEIN 6.6 g/dL (6.4-8.2)
[2020-06-07] MEDS ORDERED: FUROSEMIDE 40 MG/4 ML VIAL. IVP ONE (13:00)
[2020-06-07] MEDS ORDERED: ONDANSETRON PF 4 MG/2 ML VIAL. IV PRN (13:00)
[2020-06-07 13:33] LABS: ANISOCYTOSIS MOD; HYPOCHROMIA PRESENT; PLT ESTIMATE ADEQUATE (ADEQUATE)
[2020-06-07] MEDS ORDERED: NON FORMULARY ITEM ([Albuterol Sulfate] 2.5 MG) NEB PRN (14:15)
[2020-06-07] MEDS ORDERED: 0.9 % SODIUM CHLORIDE 10 ML DISP.SYRIN. IV PRN (14:15)
[2020-06-07] MEDS ORDERED: ACETAMINOPHEN 325 MG TABLET. PO PRN (14:15)
[2020-06-07] MEDS ORDERED: ALBUTEROL SULFATE 2.5 MG/3 ML NEBU. NEB PRN (14:30)
[2020-06-07] MEDS ORDERED: LOPERAMIDE 2 MG CAPSULE PO PRN (14:30)
[2020-06-07 15:00] VITALS: BP 155/78
[2020-06-07] MEDS: buPROPion SR 150 MG TABLET.SA PO SCH (15:16)
[2020-06-07] MEDS: ASPIRIN ENTERIC COATED 81 MG TABLET.DR. PO SCH (15:16)
[2020-06-07] MEDS: DIGOXIN 125 MCG TABLET. PO SCH (15:16)
[2020-06-07] MEDS: CETIRIZINE HCL 10 MG TABLET. PO SCH (15:17)
[2020-06-07] MEDS: LISINOPRIL 20 MG TABLET PO SCH (15:17)
[2020-06-07] MEDS: ISOSORBIDE MONONITRATE ER 30 MG TAB.ER.24H PO SCH (15:17)
[2020-06-07] MEDS: FUROSEMIDE 40 MG TABLET. PO SCH (15:17)
[2020-06-07] MEDS: amLODIPine BESYLATE 10 MG TABLET PO SCH (15:17)
[2020-06-07] MEDS: FLUTICASONE 50MCG/NASAL SPRAY 16GM BOTTLE. NS SCH (15:18)
[2020-06-07] MEDS ORDERED: NON FORMULARY ITEM (Albuterol Sulfate (Ventolin Hfa Inhaler) 2 PUFF) INH SCH (16:00)
[2020-06-07] MEDS: IPRATRPIUM/ALBUTEROL 0.5/2.5MG 3 ML NEBU. NEB SCH ×2 (16:00→20:00)
[2020-06-07] MEDS ORDERED: WARFARIN 0.5 MG TABLET. PO SCH (16:00)
[2020-06-07] MEDS: INSULIN LISPRO 300 UNITS/3 ML VIAL. SQ SCH (17:29)
[2020-06-07 19:00] VITALS: BP 146/63
[2020-06-07] MEDS ORDERED: LATANOPROST 0.005% OPHTH SOLUTION 2.5ML BOTTLE. OU SCH (21:00)
[2020-06-07] MEDS ORDERED: ATORVASTATIN CALCIUM 20 MG TABLET PO SCH (21:00)
--- NOTE | 2020-06-07 21:50 | PDOC1 ---
History and Physical Date of Admission Date of Admission 06/07/2020 Identification/Chief Complaint Chief Complaint Shortness of breath Source Source: Chart review, Patient History of Present Illness History of Present Illness Patient is a 75-year-old female with past medical history of hypertension dyslipidemia A. fib valvular heart disease congestive heart failure COPD, who was in her usual state of health until approximately 2 days prior to her admission when she started complaining of worsening dyspnea. Initially upon exertion but it has progressed over the last couple days to dyspnea at rest and over the last 2 days prior to her admission she has been having paroxysmal nocturnal dyspnea. The patient denies any dietary transgressions since she lives in a facility and her medications are given to her. No dietary transgressions either since she observes that cardiac diet. No changes in her medications recently no chest pain palpitations were reported, the patient denies any headache blurred vision she denies any dysphagia odynophagia no abdominal discomfort no nausea vomiting or diarrhea was reported We were asked to admit the patient for an acute exacerbation of CHF due to her symptoms. Plan of care has been explained detail to the patient and we discussed also the results of her laboratory data and imaging studies, no concerns were voiced during my visit Past Medical History Cardiovascular: AFIB, HTN, Hyperlipidemia Pulmonary: Asthma, COPD CENTRAL NERVOUS SYSTEM: Dementia GI: No pertinent hx Heme/Onc: B12 deficiency Hepatobiliary: No pertinent hx Psych: Depression Rheumatologic: No pertinent hx Infectious disease: No pertinent hx Renal/: No pertinent hx Endocrine: Diabetes Past Surgical History Past Surgical History: Appendectomy, Cholecystectomy, Tubal Ligation, Hysterectomy Family History Family History: Diabetes Social History Smoke: No ALCOHOL: none Drugs: None Current Problem List Problem List Problems Medical Problems: (1) Dyspnea Status: Acute (2) Volume overload Status: Acute Current Medications Current Medications Current Medications Medications (Trade) Dose Ordered Sig/Shikha Start Time Stop Time Status Last Admin Dose Admin Acetaminophen (Tylenol) 650 mg PRN Q6HRS PRN 06/07/20 14:15 Albuterol Sulfate (Ventolin Neb Soln) 2.5 mg PRN Q4HRS PRN 06/07/20 14:30 Albuterol/ Ipratropium (Duoneb) 3 ml RTQID 06/07/20 16:00 Amlodipine Besylate (Norvasc) 10 mg DAILY 06/07/20 14:30 06/07/20 15:17 10 MG Aspirin (Ecotrin) 81 mg DAILY 06/07/20 14:30 06/07/20 15:16 81 MG Atorvastatin Calcium (Lipitor) 20 mg QHS 06/07/20 21:00 Bupropion HCl (Wellbutrin Sr) 150 mg DAILY 06/07/20 14:30 06/07/20 15:16 150 MG Cetirizine HCl (ZyrTEC) 10 mg DAILY 06/07/20 14:30 06/07/20 15:17 10 MG Digoxin (Lanoxin) 125 mcg DAILY 06/07/20 14:30 06/07/20 15:16 125 MCG Ergocalciferol (Vitamin D2) 50,000 unit QSA@0900 06/13/20 09:00 Fluticasone Propionate (Flonase) 2 spray DAILY 06/07/20 14:30 06/07/20 15:18 2 SPRAY Furosemide (Lasix) 40 mg DAILY 06/07/20 14:30 06/07/20 15:17 40 MG Hydralazine HCl (Apresoline) 100 mg TID 06/07/20 14:30 06/07/20 15:18 100 MG Insulin Human Lispro (HumaLOG) 15 units TIDWMEALS 06/07/20 17:00 06/07/20 17:29 15 UNITS Isosorbide Mononitrate (Imdur) 30 mg DAILY 06/07/20 14:30 06/07/20 15:17 30 MG Latanoprost (Xalatan) 1 drop QHS 06/07/20 21:00 Lisinopril (Prinivil) 40 mg DAILY 06/07/20 14:30 06/07/20 15:17 40 MG Loperamide HCl (Imodium) 2 mg PRN Q4HRS PRN 06/07/20 14:30 Metoprolol Tartrate (Lopressor) 50 mg BID 06/07/20 21:00 Non-Formulary Medication (Albuterol Sulfate (Ventolin Hfa Inhaler)) 2 puff Q4HRS 06/07/20 16:00 UNV Non-Formulary Medication ([Albuterol Sulfate] ) 2.5 mg PRN Q4HRS PRN 06/07/20 14:15 UNV Nystatin (Nystop) 1 linda BID 06/07/20 21:00 Ondansetron HCl (Zofran) 4 mg PRN Q8HRS PRN 06/07/20 13:00 06/08/20 12:59 Sodium Chloride (Normal Saline Flush) 3 ml QSHIFT PRN 06/07/20 14:15 Warfarin Sodium (Coumadin Per Physician) 1 each PRN DAILY PRN 06/07/20 14:30 Warfarin Sodium (Coumadin) 0.5 mg DAILY16 06/07/20 16:00 06/07/20 15:20 0.5 MG Allergies Allergies Allergies Coded Allergies Type Severity Reaction Last Updated Verified fexofenadine Allergy Intermediate Palpitations 10/04/15 Yes ROS Review of System CONSTITUTIONAL: No fever or chills EYES: No recent changes SKIN: No rash or itching CARDIOVASCULAR: No chest pain, syncope, palpitations, or edema RESPIRATORY: Positive for SOB no cough GASTROINTESTINAL: No nausea, vomiting or abdominal pain NEUROLOGICAL: No headaches or weakness ENDOCRINE: No cold or heat intolerance GENITOURINARY: No urgency or frequency of urination MUSCULOSKELETAL: No back pain or joint pain LYMPHATICS: No enlarged lymph nodes PSYCHIATRIC: No anxiety or depression Physical Exam Physical Exam GEN.: No apparent distress. Alert and oriented. Morbidly obese HEENT: Head is normocephalic, atraumatic NECK: Supple. LUNGS: Clear to auscultation. Distant breath sounds HEART: Irregular rate and rhythm, S1, S2 present. Peripheral pulses intact ABDOMEN: Soft, nontender. Positive bowel sounds. EXTREMITIES: Without any cyanosis. NEUROLOGIC: Normal speech, normal tone PSYCHIATRIC: Normal affect, normal mood. SKIN: No ulcerations Vitals Vitals Vital Signs Date Time Temp Pulse Resp B/P (MAP) Pulse Ox O2 Delivery O2 Flow Rate FiO2 06/07/20 19:00 98.1 75 18 146/63 (90) 95 Room Air 98.1 Labs Labs Laboratory Tests Test 06/07/20 11:15 06/07/20 14:15 06/07/20 14:48 06/07/20 18:30 White Blood Count 8.1 x10^3/uL (4.0-11.0) Red Blood Count 4.33 x10^6/uL (3.50-5.40) Hemoglobin 10.6 g/dL (12.0-15.5) Hematocrit 32.8 % (36.0-47.0) Mean Corpuscular Volume 76 fL (79-100) Mean Corpuscular Hemoglobin 25 pg (25-35) Mean Corpuscular Hemoglobin Concent 32 g/dL (31-37) Red Cell Distribution Width 23.3 % (11.5-14.5) Platelet Count 302 x10^3/uL (140-400) Neutrophils (%) (Auto) 78 % (31-73) Lymphocytes (%) (Auto) 11 % (24-48) Monocytes (%) (Auto) 8 % (0-9) Eosinophils (%) (Auto) 3 % (0-3) Basophils (%) (Auto) 0 % (0-3) Neutrophils # (Auto) 6.2 x10^3/uL (1.8-7.7) Lymphocytes # (Auto) 0.9 x10^3/uL (1.0-4.8) Monocytes # (Auto) 0.7 x10^3/uL (0.0-1.1) Eosinophils # (Auto) 0.3 x10^3/uL (0.0-0.7) Basophils # (Auto) 0.0 x10^3/uL (0.0-0.2) Platelet Estimate Adequate (ADEQUATE) Large Platelets Present Hypochromasia Present Anisocytosis Mod Prothrombin Time 24.6 SEC (11.7-14.0) Prothromb Time International Ratio 2.2 (0.8-1.1) Activated Partial Thromboplast Time 41 SEC (24-38) Sodium Level 140 mmol/L (136-145) Potassium Level 4.3 mmol/L (3.5-5.1) Chloride Level 104 mmol/L (98-107) Carbon Dioxide Level 31 mmol/L (21-32) Anion Gap 5 (6-14) Blood Urea Nitrogen 17 mg/dL (7-20) Creatinine 1.1 mg/dL (0.6-1.0) Estimated GFR (Cockcroft-Gault) 48.6 BUN/Creatinine Ratio 15 (6-20) Glucose Level 245 mg/dL (70-99) Calcium Level 8.7 mg/dL (8.5-10.1) Magnesium Level 1.8 mg/dL (1.8-2.4) Total Bilirubin 0.6 mg/dL (0.2-1.0) Aspartate Amino Transf (AST/SGOT) 15 U/L (15-37) Alanine Aminotransferase (ALT/SGPT) 11 U/L (14-59) Alkaline Phosphatase 93 U/L (46-116) Troponin I Quantitative < 0.017 ng/mL (0.000-0.055) < 0.017 ng/mL (0.000-0.055) < 0.017 ng/mL (0.000-0.055) IJ-Hlw-D-Type Natriuretic Peptide 959 pg/mL (0-124) Total Protein 6.6 g/dL (6.4-8.2) Albumin 3.0 g/dL (3.4-5.0) Albumin/Globulin Ratio 0.8 (1.0-1.7) Digoxin Level 0.8 ng/mL (0.9-2.0) Digoxin Last Dose Date Unknown Digoxin Last Dose Time Unknown Glucose (Fingerstick) 189 mg/dL (70-99) Test 06/07/20 21:15 Glucose (Fingerstick) 194 mg/dL (70-99) Laboratory Tests Test 06/07/20 11:15 06/07/20 14:15 06/07/20 14:48 06/07/20 18:30 White Blood Count 8.1 x10^3/uL (4.0-11.0) Red Blood Count 4.33 x10^6/uL (3.50-5.40) Hemoglobin 10.6 g/dL (12.0-15.5) Hematocrit 32.8 % (36.0-47.0) Mean Corpuscular Volume 76 fL (79-100) Mean Corpuscular Hemoglobin 25 pg (25-35) Mean Corpuscular Hemoglobin Concent 32 g/dL (31-37) Red Cell Distribution Width 23.3 % (11.5-14.5) Platelet Count 302 x10^3/uL (140-400) Neutrophils (%) (Auto) 78 % (31-73) Lymphocytes (%) (Auto) 11 % (24-48) Monocytes (%) (Auto) 8 % (0-9) Eosinophils (%) (Auto) 3 % (0-3) Basophils (%) (Auto) 0 % (0-3) Neutrophils # (Auto) 6.2 x10^3/uL (1.8-7.7) Lymphocytes # (Auto) 0.9 x10^3/uL (1.0-4.8) Monocytes # (Auto) 0.7 x10^3/uL (0.0-1.1) Eosinophils # (Auto) 0.3 x10^3/uL (0.0-0.7) Basophils # (Auto) 0.0 x10^3/uL (0.0-0.2) Platelet Estimate Adequate (ADEQUATE) Large Platelets Present Hypochromasia Present Anisocytosis Mod Prothrombin Time 24.6 SEC (11.7-14.0) Prothromb Time International Ratio 2.2 (0.8-1.1) Activated Partial Thromboplast Time 41 SEC (24-38) Sodium Level 140 mmol/L (136-145) Potassium Level 4.3 mmol/L (3.5-5.1) Chloride Level 104 mmol/L (98-107) Carbon Dioxide Level 31 mmol/L (21-32) Anion Gap 5 (6-14) Blood Urea Nitrogen 17 mg/dL (7-20) Creatinine 1.1 mg/dL (0.6-1.0) Estimated GFR (Cockcroft-Gault) 48.6 BUN/Creatinine Ratio 15 (6-20) Glucose Level 245 mg/dL (70-99) Calcium Level 8.7 mg/dL (8.5-10.1) Magnesium Level 1.8 mg/dL (1.8-2.4) Total Bilirubin 0.6 mg/dL (0.2-1.0) Aspartate Amino Transf (AST/SGOT) 15 U/L (15-37) Alanine Aminotransferase (ALT/SGPT) 11 U/L (14-59) Alkaline Phosphatase 93 U/L (46-116) Troponin I Quantitative < 0.017 ng/mL (0.000-0.055) < 0.017 ng/mL (0.000-0.055) < 0.017 ng/mL (0.000-0.055) OR-Zhh-O-Type Natriuretic Peptide 959 pg/mL (0-124) Total Protein 6.6 g/dL (6.4-8.2) Albumin 3.0 g/dL (3.4-5.0) Albumin/Globulin Ratio 0.8 (1.0-1.7) Digoxin Level 0.8 ng/mL (0.9-2.0) Digoxin Last Dose Date Unknown Digoxin Last Dose Time Unknown Glucose (Fingerstick) 189 mg/dL (70-99) Test 06/07/20 21:15 Glucose (Fingerstick) 194 mg/dL (70-99) VTE Prophylaxis Ordered VTE Prophylaxis Devices: Yes VTE Pharmacological Prophylaxi: Yes Assessment/Plan Assessment/Plan Acute CHF exacerbation Chronic diastolic dysfunction with a preserved ejection fraction recorded in 2019 at 50% Atrial fibrillation on chronic anticoagulation History of COPD Morbid obesity with a BMI of 49 Diabetes mellitus type 2 insulin requiring Essential hypertension Dyslipidemia Normocytic anemia Plan We will provide diuresis with IV Lasix Home medications Diabetic cardiac diet with low salt Encourage as much activity as possible Telemetry Cardiology consult DVT prophylaxis chronic anticoagulation SOCORRO RICKETTS MD Jun 07, 2020 21:50
[2020-06-07] MEDS: METOPROLOL TART IMMED RELEASE 50 MG TABLET. PO SCH (21:58)
[2020-06-07] MEDS: NYSTATIN TOPICAL POWDER 15GM BOTTLE. TP SCH (22:29)
[2020-06-07 23:00] VITALS: BP 136/56
[2020-06-08 03:00] VITALS: BP 136/54
[2020-06-08 07:00] VITALS: BP 153/66
--- NOTE | 2020-06-08 07:43 | EKG ---
[facility] [address] [place] [address] Test Date: 2020-06-07 Test Time: 11:01:49 Pat Name: MICHAELA COOPER Department: Room: Gender: F Petroleum Production Engineer: : [id number] Requested By: PARISH RICHARDSON Order Number: [id number] Reading MD: Measurements Intervals [place] Rate: 59 P: DE: QRS: -17 QRSD: 92 T: 103 QT: 418 QTc: 418 Interpretive Statements IRREGULAR RHYTHM, NO P-WAVE FOUND LEFTWARD AXIS R-S TRANSITION ZONE IN V LEADS DISPLACED TO THE LEFT T ABNORMALITY IN HIGH LATERAL LEADS ABNORMAL ECG RI6.02 No previous ECG available for comparison
[2020-06-08] MEDS: METOPROLOL TART IMMED RELEASE 50 MG TABLET. PO SCH (08:18)
[2020-06-08] MEDS: ASPIRIN ENTERIC COATED 81 MG TABLET.DR. PO SCH (08:18)
[2020-06-08] MEDS: DIGOXIN 125 MCG TABLET. PO SCH (08:18)
[2020-06-08] MEDS: ISOSORBIDE MONONITRATE ER 30 MG TAB.ER.24H PO SCH (08:19)
[2020-06-08] MEDS: LISINOPRIL 20 MG TABLET PO SCH (08:19)
[2020-06-08] MEDS: CETIRIZINE HCL 10 MG TABLET. PO SCH (08:19)
[2020-06-08] MEDS: FUROSEMIDE 40 MG TABLET. PO SCH (08:20)
[2020-06-08] MEDS: amLODIPine BESYLATE 10 MG TABLET PO SCH (08:20)
[2020-06-08] MEDS: buPROPion SR 150 MG TABLET.SA PO SCH (08:20)
[2020-06-08] MEDS: NYSTATIN TOPICAL POWDER 15GM BOTTLE. TP SCH (08:21)
[2020-06-08] MEDS: FLUTICASONE 50MCG/NASAL SPRAY 16GM BOTTLE. NS SCH (08:21)
[2020-06-08] MEDS: INSULIN LISPRO 300 UNITS/3 ML VIAL. SQ SCH ×2 (08:26→12:16)
[2020-06-08 10:48] VITALS: BP 114/69
--- NOTE | 2020-06-08 11:24 | NUR ---
YANELI following. Discussed with RN, pt from [facility] Assisted living with [facility]. Pt does not have a SNU benefit. Pt was admitted for 15 days in February with COVID-19. Pt unsure if she was swabbed again to determine negative test. YANELI trying to verify with [facility] if they know if pt has since had a negative result. YANELI will continue to follow. Addendum: 06/08/20 at 1444 by MARCO GROVES Pt went to [facility] from [facility] last admission. YANELI contacted Tiesha at [facility] to determine if they did a COVID test on patient. Pt has discharge orders to return to [facility] with [facility]. YANELI faxed discharge orders to [facility]. Pt does not have transportation home. YANELI to arrange transportation. Addendum: 06/08/20 at 1452 by MARCO GROVES Transportation arranged with [facility] [employer] for between [phone]. RN notified.
--- NOTE | 2020-06-08 13:50 | SNU/HH DC ---
DISCHARGE ORDERS DISCHARGE INFORMATION: FINAL DIAGNOSIS Problems Medical Problems: (1) Dyspnea Status: Acute (2) Volume overload Status: Acute CONDITION ON DISCHARGE: Stable CODE STATUS: Code Status: Full SNF: SNF STAY <30 DAYS: Yes HOSPICE: HOSPICE: No HOSPICE EVAL & TREAT: No POST DISCHARGE ORDERS: ACTIVITY ORDERS: Activity as tolerated WEIGHT BEARING STATUS: Full weight bearing DIET AFTER DISCHARGE: ADA CHECKS AFTER DISCHARGE: CHECKS AFTER DISCHARGE: Check blood press - daily, Check blood sugar, ac/hs, Weigh Yourself Daily FOLLOW-UP: PHYSICIAN FOLLOW-UP: Recommend PCP follow-up within 1 week ADDITIONAL FOLLOW-UP: Recommend ophthalmology consult for right eye discharge TREATMENT/EQUIPMENT ORDERS: ADAPTIVE EQUIPMENT NEEDED: Four wheeled walker, Front wheeled walker RESPIRATORY EQUIPMENT NEEDED: Nebulizer Physical Therapy For: Evalulation/Treatment Occupational Therapy For: Evaluation/Treatment Speech Language Pathology For: Evaluation/Treatment DISCHARGE MEDICATIONS: Home Meds Active Scripts Nystatin (NYSTOP) 60 Gm Powder, 1 ANDREIA TP BID for intertrigo for 30 Days, #30 MISC Prov:SHARRON GRUBBS MD 03/09/20 Latanoprost (LATANOPROST) 2.5 Ml Drops, 1 DROP OU QHS for Glaucoma for 30 Days, #30 DROP Prov:SHARRON GRUBBS MD 03/09/20 Amlodipine Besylate (AMLODIPINE BESYLATE) 10 Mg Tablet, 10 MG PO DAILY for HTN for 30 Days, #30 TAB Prov:SHARRON GRUBBS MD 03/09/20 Isosorbide Mononitrate (ISOSORBIDE MONONITRATE ER) 30 Mg Tab.er.24h, 30 MG PO DAILY for HTN for 30 Days, #30 TAB.SR Prov:SHARRON GRUBBS MD 03/09/20 Enoxaparin Sodium (ENOXAPARIN SODIUM) 120 Mg/0.8 Ml Disp.syrin, 120 MG SQ Q12HR for AFib for 5 Days, #10 DIS.SYR Prov:SHARRON GRUBBS MD 03/09/20 Metoprolol Tartrate (METOPROLOL TARTRATE) 50 Mg Tablet, 50 MG PO BID for FOR HYPERTENSION for 30 Days, #60 TAB 0 Refills Prov:SHARRON GRUBBS MD 03/09/20 Hydralazine Hcl (HYDRALAZINE HCL) 25 Mg Tablet, 4 TAB PO TID for blood pressure for 30 Days, #360 TAB 5 Refills Prov:SHARRON GRUBBS MD 03/09/20 Lisinopril (LISINOPRIL) 10 Mg Tablet, 40 MG PO DAILY for heart/bp/kidneys for 30 Days, #120 TAB Prov:SHARRON GRUBBS MD 03/09/20 Atorvastatin Calcium (ATORVASTATIN CALCIUM) 20 Mg Tablet, 20 MG PO QHS for cholesterol for 30 Days, #30 TAB Prov:Evelin RUIZ MD 05/24/19 Acetaminophen (TYLENOL) 325 Mg Tablet, 650 MG PO PRN Q6HRS PRN for PAIN for 30 D ays, #100 TAB Prov:Evelin RUIZ MD 05/24/19 Warfarin Sodium (COUMADIN) 3 Mg Tablet, 6 MG PO DAILY16 for afib for 30 Days, #60 TAB Prov:Evelin RUIZ MD 05/24/19 Digoxin (LANOXIN) 125 Mcg Tablet, 125 MCG PO DAILY for 30 Days Prov:LINDA RG MD 10/13/15 [Albuterol Sulfate] 2.5 MG/3 ML NEBU No Conflict Check, 2.5 MG NEB PRN Q4HRS PRN for SHORTNESS OF BREATH Prov:Evelin RUIZ MD 06/25/15 Reported Medications Albuterol Sulfate (VENTOLIN HFA INHALER) 18 Gm Hfa.aer.ad, 2 PUFF INH Q4HRS for FOR ASTHMA, INHALER 0 Refills 02/24/20 Ipratropium/Albuterol Sulfate (COMBIVENT RESPIMAT INHAL) 4 Gm Aer.w.adap, 2 INH IH QID for copd, INHALER 02/24/20 Loratadine (LORATADINE) 10 Mg Tablet, 10 MG PO DAILY for allergies, TAB 02/24/20 Loperamide Hcl (LOPERAMIDE) 2 Mg Tablet, 2 MG PO PRN Q4HRS PRN for DIARRHEA, TAB 02/24/20 Furosemide (FUROSEMIDE) 40 Mg Tablet, 40 MG PO DAILY for diuretic, TAB 02/24/20 Warfarin Sodium (WARFARIN SODIUM) 1 Mg Tablet, 0.5 MG PO DAILY for blood thinner, TAB 02/24/20 Bupropion Hcl (WELLBUTRIN SR) 150 Mg Tablet.er, 150 MG PO DAILY for antidepresan t, TAB.SR 05/21/19 Insulin Aspart (NOVOLOG) 100 Unit/1 Ml Cartridge, 15 UNIT SQ TID for glucose control, EACH 05/21/19 Aspirin (ASPIRIN EC) 81 Mg Tablet.dr, 1 TAB PO DAILY for circulations, #30 TAB 3 Refills 05/21/19 Fluticasone Propionate (FLUTICASONE PROPIONATE NASAL SPRAY) 16 Gm [place].susp, 2 SPRAY NS DAILY, #1 INHALER 11 Refills LAST DOSE GIVEN: DATE: 10-13-15 TIME: 9 am NEXT DOSE DUE: DATE: 10-14-15 TIME: 9 am 06/23/15 Ergocalciferol (Vitamin D2) (VITAMIN D2) 50,000 Unit Capsule, 1 CAP PO QSA for supplement, #4 CAP 5 Refills 06/23/15 JEFFERSON ARZATE MD Jun 08, 2020 13:50
--- NOTE | 2020-06-08 14:29 | SNU/HH DC ---
DISCHARGE WITH HOME HEALTH DISCHARGE INFORMATION: Final Diagnosis: Problems Medical Problems: (1) Dyspnea Status: Acute (2) Volume overload Status: Acute Condition on Discharge: Stable CODE STATUS: Code Status: Full HOME HEALTH: Face to Face: I certify this patient is under my care and that I, or a nurse practitioner or physician's medical services assistant working with me, had a face to face encounter that meets the physician face to face encounter requirements with this patient on []. Medical Complications: CHF RN For Eval/Treatment: Yes Physical Therapy For: Evalulation/Treatment Occupational Therapy For: Evaluation/Treatment ANIMAL IMPERSONATOR For: Community Resources Pt Meets Homebound Status: Fatigue w/ amb., Limited distance walking, Poor cognition POST DISCHARGE ORDERS: Activity Instructions for Disc: Activity as tolerated Weight Bearing Status after Di: Full weight bearing DIET AFTER DISCHARGE: ADA CHECKS AFTER DISCHARGE: Checks after discharge: Check blood press - daily, Check blood sugar, ac/hs, Weigh Yourself Daily FOLLOW-UP: Follow up with: Recommend PCP follow-up within 1 week Follow Up With: Recommend ophthalmology consult for right eye discharge TREATMENT/EQUIPMENT ORDERS: Adaptive Equipment Issued: Four wheeled walker, Front wheeled walker Discharge Respiratory Equipmen: Nebulizer CERTIFICATION STATEMENT: Certification Statement: Certification Statement: Based on the above finding, I certify that this patient is confined to the home and needs intermittent senior living care, physical therapy and/or speech therapy, or continues to need occupational therapy.~ This patient is under my care, and I have initiated the establishment of the plan of care.~ This patient will be followed by myself or a community physician who will periodically review the plan of care. Home Meds Active Scripts Nystatin (NYSTOP) 60 Gm Powder, 1 ANDREIA TP BID for intertrigo for 30 Days, #30 MISC Prov:SHARRON GRUBBS MD 03/09/20 Latanoprost (LATANOPROST) 2.5 Ml Drops, 1 DROP OU QHS for Glaucoma for 30 Days, #30 DROP Prov:SHARRON GRUBBS MD 03/09/20 Amlodipine Besylate (AMLODIPINE BESYLATE) 10 Mg Tablet, 10 MG PO DAILY for HTN for 30 Days, #30 TAB Prov:SHARRON GRUBBS MD 03/09/20 Isosorbide Mononitrate (ISOSORBIDE MONONITRATE ER) 30 Mg Tab.er.24h, 30 MG PO DAILY for HTN for 30 Days, #30 TAB.SR Prov:SHARRON GRUBBS MD 03/09/20 Enoxaparin Sodium (ENOXAPARIN SODIUM) 120 Mg/0.8 Ml Disp.syrin, 120 MG SQ Q12HR for AFib for 5 Days, #10 DIS.SYR Prov:SHARRON GRUBBS MD 03/09/20 Metoprolol Tartrate (METOPROLOL TARTRATE) 50 Mg Tablet, 50 MG PO BID for FOR HYPERTENSION for 30 Days, #60 TAB 0 Refills Prov:SHARRON GRUBBS MD 03/09/20 Hydralazine Hcl (HYDRALAZINE HCL) 25 Mg Tablet, 4 TAB PO TID for blood pressure for 30 Days, #360 TAB 5 Refills Prov:SHARRON GRUBBS MD 03/09/20 Lisinopril (LISINOPRIL) 10 Mg Tablet, 40 MG PO DAILY for heart/bp/kidneys for 30 Days, #120 TAB Prov:SHARRON GRUBBS MD 03/09/20 Atorvastatin Calcium (ATORVASTATIN CALCIUM) 20 Mg Tablet, 20 MG PO QHS for cholesterol for 30 Days, #30 TAB Prov:Evelin RUIZ MD 05/24/19 Acetaminophen (TYLENOL) 325 Mg Tablet, 650 MG PO PRN Q6HRS PRN for PAIN for 30 Days, #100 TAB Prov:Evelin RUIZ MD 05/24/19 Warfarin Sodium (COUMADIN) 3 Mg Tablet, 6 MG PO DAILY16 for afib for 30 Days, #60 TAB Prov:Evelin RUIZ MD 05/24/19 Digoxin (LANOXIN) 125 Mcg Tablet, 125 MCG PO DAILY for 30 Days Prov:LINDA RG MD 10/13/15 [Albuterol Sulfate] 2.5 MG/3 ML NEBU No Conflict Check, 2.5 MG NEB PRN Q4HRS PRN for SHORTNESS OF BREATH Prov:Evelin RUIZ MD 06/25/15 Reported Medications Albuterol Sulfate (VENTOLIN HFA INHALER) 18 Gm Hfa.aer.ad, 2 PUFF INH Q4HRS for FOR ASTHMA, INHALER 0 Refills 02/24/20 Ipratropium/Albuterol Sulfate (COMBIVENT RESPIMAT INHAL) 4 Gm Aer.w.adap, 2 INH IH QID for copd, INHALER 02/24/20 Loratadine (LORATADINE) 10 Mg Tablet, 10 MG PO DAILY for allergies, TAB 02/24/20 Loperamide Hcl (LOPERAMIDE) 2 Mg Tablet, 2 MG PO PRN Q4HRS PRN for DIARRHEA, TAB 02/24/20 Furosemide (FUROSEMIDE) 40 Mg Tablet, 40 MG PO DAILY for diuretic, TAB 02/24/20 Warfarin Sodium (WARFARIN SODIUM) 1 Mg Tablet, 0.5 MG PO DAILY for blood thinner, TAB 02/24/20 Bupropion Hcl (WELLBUTRIN SR) 150 Mg Tablet.er, 150 MG PO DAILY for antidepresant, TAB.SR 05/21/19 Insulin Aspart (NOVOLOG) 100 Unit/1 Ml Cartridge, 15 UNIT SQ TID for glucose control, EACH 05/21/19 Aspirin (ASPIRIN EC) 81 Mg Tablet.dr, 1 TAB PO DAILY for circulations, #30 TAB 3 Refills 05/21/19 Fluticasone Propionate (FLUTICASONE PROPIONATE NASAL SPRAY) 16 Gm [place].susp, 2 SPRAY NS DAILY, #1 INHALER 11 Refills LAST DOSE GIVEN: DATE: 10-13-15 TIME: 9 am NEXT DOSE DUE: DATE: 10-14-15 TIME: 9 am 06/23/15 Ergocalciferol (Vitamin D2) (VITAMIN D2) 50,000 Unit Capsule, 1 CAP PO QSA for supplement, #4 CAP 5 Refills 06/23/15 JEFFERSON ARZATE MD Jun 08, 2020 14:29
[2020-06-08 14:56] VITALS: BP 122/72
--- NOTE | 2020-06-08 17:06 | NUR ---
pt discharged back to [facility]. report given to bob. orders and meds faxed. pt stable upon dc. IV removed, cath intact.
--- NOTE | 2020-06-08 19:15 | PDOC3 ---
[facility]-Discharge Summary Date of Admission: Date of Admission: Jun 07, 2020 Date of Discharge: Date of Discharge: Jun 08, 2020 Admission Diagnosis: Admitting Diagnosis: Acute CHF exacerbation Chronic diastolic dysfunction with a preserved ejection fraction recorded in 2019 at 50% Atrial fibrillation on chronic anticoagulation History of COPD Morbid obesity with a BMI of 49 Diabetes mellitus type 2 insulin requiring Essential hypertension Dyslipidemia Normocytic anemia Discharge Diagnosis: Discharge Diagnosis: Acute CHF exacerbation Chronic diastolic dysfunction with a preserved ejection fraction recorded in 201 9 at 50% Atrial fibrillation on chronic anticoagulation History of COPD Morbid obesity with a BMI of 49 Diabetes mellitus type 2 insulin requiring Essential hypertension Dyslipidemia Normocytic anemia Hospital Course: Hospital Course: 75-year-old female with past medical history of hypertension dyslipidemia A. fib valvular heart disease congestive heart failure COPD, who was in her usual state of health until approximately 2 days prior to her admission when she started complaining of worsening dyspnea. Initially upon exertion but it has progressed over the last couple days to dyspnea at rest and over the last 2 days prior to her admission she has been having paroxysmal nocturnal dyspnea. The patient denies any dietary transgressions since she lives in a facility and her medications are given to her. No dietary transgressions either since she observ es that cardiac diet. No changes in her medications recently no chest pain palpitations were reported, the patient denies any headache blurred vision she denies any dysphagia odynophagia no abdominal discomfort no nausea vomiting or diarrhea was reported We were asked to admit the patient for an acute exacerbation of CHF due to her symptoms. Plan of care has been explained detail to the patient and we discussed also the results of her laboratory data and imaging studies, no concerns were voiced during my visit Patient was seen on the next day after admissions and she was feeling much better. She did not have any complaints of orthopnea or dyspnea at rest. Patient was tolerating diet and speaking in full sentences on day of discharge. The rest of the hospital course was uneventful. Physical exam on day of discharge GEN: No apparent distress. Alert and oriented NECK: Supple, no JVD, no thyromegaly was noted LUNGS: Bilaterally clear to auscultation HEART: RRR, S1, S2 present. Peripheral pulses intact, no obvious murmurs noted EXTREMITIES: Without clubbing, cyanosis, or edema. Pedal pulses intact. Nega tive Homans sign Disposition: Disposition/Orders: D/C to Another Facility Activity: Activity: Resume previous activity Diet: Diet: Cardiac Medications: Home Meds Active Scripts Nystatin (NYSTOP) 60 Gm Powder, 1 ANDREIA TP BID for intertrigo for 30 Days, #30 MISC Prov:SHARRON GRUBBS MD 03/09/20 Latanoprost (LATANOPROST) 2.5 Ml Drops, 1 DROP OU QHS for Glaucoma for 30 Days, #30 DROP Prov:SHARRON GRUBBS MD 03/09/20 Amlodipine Besylate (AMLODIPINE BESYLATE) 10 Mg Tablet, 10 MG PO DAILY for HTN for 30 Days, #30 TAB Prov:SHARRON GRUBBS MD 03/09/20 Isosorbide Mononitrate (ISOSORBIDE MONONITRATE ER) 30 Mg Tab.er.24h, 30 MG PO DAILY for HTN for 30 Days, #30 TAB.SR Prov:SHARRON GRUBBS MD 03/09/20 Enoxaparin Sodium (ENOXAPARIN SODIUM) 120 Mg/0.8 Ml Disp.syrin, 120 MG SQ Q12HR for AFib for 5 Days, #10 DIS.SYR Prov:SHARRON GRUBBS MD 03/09/20 Metoprolol Tartrate (METOPROLOL TARTRATE) 50 Mg Tablet, 50 MG PO BID for FOR HYPERTENSION for 30 Days, #60 TAB 0 Refills Prov:SHARRON GRUBBS MD 03/09/20 Hydralazine Hcl (HYDRALAZINE HCL) 25 Mg Tablet, 4 TAB PO TID for blood pressure for 30 Days, #360 TAB 5 Refills Prov:SHARRON GRUBBS MD 03/09/20 Lisinopril (LISINOPRIL) 10 Mg Tablet, 40 MG PO DAILY for heart/bp/kidneys for 30 Days, #120 TAB Prov:SHARRON GRUBBS MD 03/09/20 Atorvastatin Calcium (ATORVASTATIN CALCIUM) 20 Mg Tablet, 20 MG PO QHS for cholesterol for 30 Days, #30 TAB Prov:Evelin RUIZ MD 05/24/19 Acetaminophen (TYLENOL) 325 Mg Tablet, 650 MG PO PRN Q6HRS PRN for PAIN for 30 Days, #100 TAB Prov:Evelin RUIZ MD 05/24/19 Warfarin Sodium (COUMADIN) 3 Mg Tablet, 6 MG PO DAILY16 for afib for 30 Days, #60 TAB Prov:Evelin RUIZ MD 05/24/19 Digoxin (LANOXIN) 125 Mcg Tablet, 125 MCG PO DAILY for 30 Days Prov:LINDA RG MD 10/13/15 [Albuterol Sulfate] 2.5 MG/3 ML NEBU No Conflict Check, 2.5 MG NEB PRN Q4HRS PRN for SHORTNESS OF BREATH Prov:Evelin RUIZ MD 06/25/15 Reported Medications Albuterol Sulfate (VENTOLIN HFA INHALER) 18 Gm Hfa.aer.ad, 2 PUFF INH Q4HRS for FOR ASTHMA, INHALER 0 Refills 02/24/20 Ipratropium/Albuterol Sulfate (COMBIVENT RESPIMAT INHAL) 4 Gm Aer.w.adap, 2 INH IH QID for copd, INHALER 02/24/20 Loratadine (LORATADINE) 10 Mg Tablet, 10 MG PO DAILY for allergies, TAB 02/24/20 Loperamide Hcl (LOPERAMIDE) 2 Mg Tablet, 2 MG PO PRN Q4HRS PRN for DIARRHEA, TAB 02/24/20 Furosemide (FUROSEMIDE) 40 Mg Tablet, 40 MG PO DAILY for diuretic, TAB 02/24/20 Warfarin Sodium (WARFARIN SODIUM) 1 Mg Tablet, 0.5 MG PO DAILY for blood thinner, TAB 02/24/20 Bupropion Hcl (WELLBUTRIN SR) 150 Mg Tablet.er, 150 MG PO DAILY for antidepresant, TAB.SR 05/21/19 Insulin Aspart (NOVOLOG) 100 Unit/1 Ml Cartridge, 15 UNIT SQ TID for glucose control, EACH 05/21/19 Aspirin (ASPIRIN EC) 81 Mg Tablet.dr, 1 TAB PO DAILY for circulations, #30 TAB 3 Refills 05/21/19 Fluticasone Propionate (FLUTICASONE PROPIONATE NASAL SPRAY) 16 Gm [place].susp, 2 SPRAY NS DAILY, #1 INHALER 11 Refills LAST DOSE GIVEN: DATE: 10-13-15 TIME: 9 am NEXT DOSE DUE: DATE: 10-14-15 TIME: 9 am 06/23/15 Ergocalciferol (Vitamin D2) (VITAMIN D2) 50,000 Unit Capsule, 1 CAP PO QSA for supplement, #4 CAP 5 Refills 06/23/15 Scheduled Albuterol Sulfate (Ventolin Hfa Inhaler), 2 PUFF INH Q4HRS, (Reported) Amlodipine Besylate (Amlodipine Besylate), 10 MG PO DAILY Aspirin (Aspirin Ec), 1 TAB PO DAILY, (Reported) Atorvastatin Calcium (Atorvastatin Calcium), 20 MG PO QHS Bupropion Hcl (Wellbutrin Sr), 150 MG PO DAILY, (Reported) Digoxin (Lanoxin), 125 MCG PO DAILY Enoxaparin Sodium (Enoxaparin Sodium), 120 MG SQ Q12HR Ergocalciferol (Vitamin D2) (Vitamin D2), 1 CAP PO QSA, (Reported) Fluticasone Propionate (Fluticasone Propionate Nasal [place]), 2 SPRAY NS DAILY, (Reported) Furosemide (Furosemide), 40 MG PO DAILY, (Reported) Hydralazine Hcl (Hydralazine Hcl), 4 TAB PO TID Insulin Aspart (Novolog), 15 UNIT SQ TID, (Reported) Ipratropium/Albuterol Sulfate (Combivent Respimat Inhal), 2 INH IH QID, (Reported) Isosorbide Mononitrate (Isosorbide Mononitrate Er), 30 MG PO DAILY Latanoprost (Latanoprost), 1 DROP OU QHS Lisinopril (Lisinopril), 40 MG PO DAILY Loratadine (Loratadine), 10 MG PO DAILY, (Reported) Metoprolol Tartrate (Metoprolol Tartrate), 50 MG PO BID Nystatin (Nystop), 1 ANDREIA TP BID Warfarin Sodium (Coumadin), 6 MG PO DAILY16 Warfarin Sodium (Warfarin Sodium), 0.5 MG PO DAILY, (Reported) Scheduled PRN Acetaminophen (Tylenol), 650 MG PO PRN Q6HRS PRN for PAIN Loperamide Hcl (Loperamide), 2 MG PO PRN Q4HRS PRN for DIARRHEA, (Reported) [Albuterol Sulfate], 2.5 MG NEB PRN Q4HRS PRN for SHORTNESS OF BREATH Total Time: Total Time: Total time spent was 40 minutes in preparing scripts, discharge planning with SWI and RN and preparing this discharge summary Justicifation of Admission Dx: Justifications for Admission: Justification of Admission Dx: Yes JEFFERSON ARZATE MD Jun 08, 2020 19:15
[2020-06-13] MEDS ORDERED: ERGOCALCIFEROL (VITAMIN D2) 50,000 UNIT CAPSULE. PO SCH (09:00)
== END 2020-06-08 17:07 | disposition home or self-care (01) ==
LOC: ER 10:46 → 5 NORTH 12:56
PROVIDERS: ADMIT Internal Medicine; ATTEND Internal Medicine
DX: I11.0 Hypertensive heart disease with heart failure (principal); I50.9 Heart failure, unspecified; E87.70 Fluid overload, unspecified; I48.91 Unspecified atrial fibrillation; E66.01 Morbid (severe) obesity due to excess calories; F41.9 Anxiety disorder, unspecified; J44.9 Chronic obstructive pulmonary disease, unspecified; E78.5 Hyperlipidemia, unspecified; E78.00 Pure hypercholesterolemia, unspecified; E11.9 Type 2 diabetes mellitus without complications; D64.9 Anemia, unspecified; F03.90 Unspecified dementia, unspecified severity, without behavioral disturbance, psychotic disturbance, mood disturbance, and anxiety; N19 Unspecified kidney failure; Z68.42 Body mass index [BMI] 45.0-49.9, adult; Z79.01 Long term (current) use of anticoagulants; Z79.4 Long term (current) use of insulin; Z90.49 Acquired absence of other specified parts of digestive tract; Z90.710 Acquired absence of both cervix and uterus; Z98.51 Tubal ligation status
CPT/HCPCS: 36415; 71045; 80053; 80162; 82962; 83735; 83880; 84484; 85025; 85610; 85730; 93005; 96372; 96374; 99284; G0378; J1815; J1940; G0379; 99285-25

== ENCOUNTER 2020-10-20 11:15 | Inpatient (IN) | payer MEDICAID, MEDICARE ==
[~2020-10-20] VITALS: Ht 165.1 cm; Wt 131.6 kg
[~2020-10-20 11:15] MED LIST changes: +AMLO-187 PO; -AMLO10TA8 PO; -ISOS30TA4 PO; +ISOS30TA68 PO; +LISI10TA16 PO; -LISI10TA2 PO
--- NOTE | 2020-10-20 12:37 | RAD ---
EXAM: Chest, single view. HISTORY: Short of breath. COMPARISON: 10/08/2020 FINDINGS: A frontal view of the chest is obtained. There is no infiltrate, pleural effusion or pneumo thorax. There is a stable enlarged cardiac silhouette and there are stable prominent central pulmonar y vessels. IMPRESSION: No acute pulmonary finding. Stable cardiomegaly. Electronically signed by: Jenn Bhandari MD (10/20/2020 12:34 PM) [id number]
[2020-10-20 12:48] LABS: BASO # 0.1 x10^3/uL (0.0-0.2); BASO % 1 % (0-3); EOS % 0 % (0-3); HEMOGLOBIN 15.2 g/dL (12.0-15.5); LYMPH # 0.7 x10^3/uL (1.0-4.8); LYMPH % 6 % (24-48); MEAN CORPUSCULAR HEMOGLOBIN 27 pg (25-35); MEAN CORPUSCULAR HGB CONC 32 g/dL (31-37); MEAN CORPUSCULAR VOLUME 84 fL (79-100); MONO # 1.3 x10^3/uL (0.0-1.1); MONO % 10 % (0-9); NEUT # 10.9 x10^3/uL (1.8-7.7); NEUT % 84 % (31-73); PLATELET COUNT 213 x10^3/uL (140-400); RED BLOOD COUNT 5.61 x10^6/uL (3.50-5.40); RED CELL DISTRIBUTION WIDTH 15.7 % (11.5-14.5)
[2020-10-20 13:46] LABS: CALCIUM 8.8 mg/dL (8.5-10.1); CREATININE 1.9 mg/dL (0.6-1.0); GFR 25.8; POTASSIUM 3.7 mmol/L (3.5-5.1)
[2020-10-20 13:52] LABS: ALBUMIN 2.7 g/dL (3.4-5.0); ALBUMIN/GLOBULIN RATIO 0.8 (1.0-1.7); MAGNESIUM 1.9 mg/dL (1.8-2.4); TOTAL BILIRUBIN 1.2 mg/dL (0.2-1.0); TOTAL PROTEIN 6.1 g/dL (6.4-8.2)
[2020-10-20 14:01] LABS: CREATINE KINASE 68 U/L (26-192)
--- NOTE | 2020-10-20 14:33 | EKG ---
[facility] [address] [place] [address] Test Date: 2020-10-20 Test Time: 12:09:34 Pat Name: MICHAELA COOPER Department: Room: Gender: F [employer] Member: : 1945 Requested By: BRIAN KLEIN Order Number: [id number] Reading MD: Dominick Biggs Measurements Intervals [place] Rate: 79 P: AR: QRS: -17 QRSD: 96 T: 112 QT: 366 QTc: 421 Interpretive Statements ATRIAL FIBRILLATION LEFTWARD AXIS ABNORMAL ECG Electronically Signed On 10-20-2020 15:05:10 CAP COVERER by Dominick Biggs
--- NOTE | 2020-10-20 15:21 | PDOC1 ---
History and Physical Date of Admission Date of Admission DATE: 10/20/20 TIME: 15:20 Identification/Chief Complaint Chief Complaint Nausea, vomiting, diarrhea Source Source: Caregiver, Chart review, Patient History of Present Illness History of Present Illness Ms Yang is a 75 yo F w/ PMHx HTN, Hyperlipidemia, AFIB, valvular insufficiency, CHF, cardiomyopathy, COPD, Depression, DM2 who p/w nausea, vomiting, and diarrhea for the last day. Also noted shortness of breath, and weakness that began this morning. She denies any abdominal pain, chest pain, palpitations, fever, or cough. EMS reports that the patient had a negative Covid test 10/19/2020 (she also did have COVID19 8 months ago). Patient was recently admitted at this facility for COPD exacerbation on davin In ED noted in afib on EKG. Labs with WBC 13, Hb 15.2, platelets 213, Na 138, K 3.7, BUN 19, Cr 1.9, glucose 118, BNP 2609 Chest radiograph with cardiomegaly, no other acute finding. Admitted for further care. Past Medical History Cardiovascular: AFIB, HTN, Hyperlipidemia Pulmonary: Asthma, COPD CENTRAL NERVOUS SYSTEM: Dementia GI: No pertinent hx Heme/Onc: B12 deficiency Hepatobiliary: No pertinent hx Psych: Depression Rheumatologic: No pertinent hx Infectious disease: No pertinent hx Renal/: Chronic renal insuff Endocrine: Diabetes Past Surgical History Past Surgical History: Appendectomy, Cholecystectomy, Tubal Ligation, Hysterectomy Family History Family History: Diabetes Social History Smoke: No ALCOHOL: none Drugs: None Current Medications Current Medications Active Scripts Active Nystop (Nystatin) 60 Gm Powder 1 Bernardo TP BID 30 Days Latanoprost 2.5 Ml Drops 1 Drop OU QHS 30 Days Amlodipine Besylate 10 Mg Tablet 10 Mg PO DAILY 30 Days Isosorbide Mononitrate Er (Isosorbide Mononitrate) 30 Mg Tab.er.24h 30 Mg PO DAILY 30 Days Enoxaparin Sodium 120 Mg/0.8 Ml Disp.syrin 120 Mg SQ Q12HR 5 Days Metoprolol Tartrate 50 Mg Tablet 50 Mg PO BID 30 Days Hydralazine Hcl 25 Mg Tablet 4 Tab PO TID 30 Days Lisinopril 10 Mg Tablet 40 Mg PO DAILY 30 Days Atorvastatin Calcium 20 Mg Tablet 20 Mg PO QHS 30 Days Tylenol (Acetaminophen) 325 Mg Tablet 650 Mg PO PRN Q6HRS PRN 30 Days Coumadin (Warfarin Sodium) 3 Mg Tablet 6 Mg PO DAILY16 30 Days Lanoxin (Digoxin) 125 Mcg Tablet 125 Mcg PO DAILY 30 Days [Albuterol Sulfate] 2.5 MG/3 ML Nebu 2.5 Mg NEB PRN Q4HRS PRN Reported Ventolin Hfa Inhaler (Albuterol Sulfate) 18 Gm Hfa.aer.ad 2 Puff INH Q4HRS Combivent Respimat Inhal (Ipratropium/Albuterol Sulfate) 4 Gm Aer.w.adap 2 Inh IH QID Loratadine 10 Mg Tablet 10 Mg PO DAILY Loperamide (Loperamide Hcl) 2 Mg Tablet 2 Mg PO PRN Q4HRS PRN Furosemide 40 Mg Tablet 40 Mg PO DAILY Warfarin Sodium 1 Mg Tablet 0.5 Mg PO DAILY Wellbutrin Sr (Bupropion Hcl) 150 Mg Tablet.er 150 Mg PO DAILY Novolog (Insulin Aspart) 100 Unit/1 Ml Cartridge 15 Unit SQ TID Aspirin Ec (Aspirin) 81 Mg Tablet.dr 1 Tab PO DAILY Fluticasone Propionate Nasal [place] (Fluticasone Propionate) 16 Gm [place].susp 2 [place] NS DAILY LAST DOSE GIVEN: DATE: 10-13-15 TIME: 9 am NEXT DOSE DUE: DATE: 10-14-15 TIME: 9 am Vitamin D2 (Ergocalciferol (Vitamin D2)) 50,000 Unit Capsule 1 Cap PO QSA Allergies Allergies: Coded Allergies: fexofenadine (Verified Allergy, Intermediate, Palpitations, 10/04/15) " tachycardia" ROS General: YES: Fatigue, Malaise; No: Chills, Night Sweats, Appetite, Other PSYCHOLOGICAL ROS: No: Anxiety, Behavioral Disorder, Concentration difficultie, Decreased libido, Depression, Disorientation, Hallucinations, Hostility, Irritablity, Memory difficulties, Mood Swings, Obsessive thoughts, Physical abuse, Sexual abuse, Sleep disturbances, Suicidal ideation, Other Eyes: No Blurry vision, No Decreased vision, No Double vision, No Dry eyes, No Excessive tearing, No Eye Pain, No Itchy Eyes, No Loss of vision, No Photophobia, No Scotomata, No Uses contacts, No Uses glasses, No Other HEENT: No: Heacaches, Visual Changes, Hearing change, Nasal congestion, Nasal discharge, Oral lesions, Sinus pain, Sore Throat, Epistaxis, Sneezing, Snoring, Tinnitus, Vertigo, Vocal changes, Other ALLERGY AND IMMUNOLOGY: No: Hives, Insect Bite Sensitivity, Itchy/Watery Eyes, Nasal Congestion, Post Nasal Drip, Seasonal Allergies, Other Hematological and Lymphatic: No: Bleeding Problems, Blood Clots, Blood Transfusions, Brusing, Night Sweats, Pallor, Swollen Lymph Nodes, Other ENDOCRINE: No: Breast Changes, Galactorrhea, Hair Pattern Changes, Hot Flashes, Malaise/lethargy, Mood Swings, Palpitations, Polydipsia/polyuria, Skin Changes, Temperature Intolerance, Unexpected Weight Changes, Other Breast: No New/Changing Breast Lumps, No Nipple changes, No Nipple discharge, No Other Respiratory: YES: Cough, Shortness of breath; No: Hemoptysis, Orthopnea, Pleuritic Pain, SOB with excertion, Sputum Changes, Stridor, Tachypnea, Wheezing, Other Cardiovascular: No Chest Pain, No Palpitations, No Orthopnea, No Paroxysmal Noc. Dyspnea, No Edema, No Lt Headedness, No Other Gastrointestinal: Yes Nausea, Yes Vomiting, Yes Abdominal Pain, Yes Diarrhea; No Constipation, No Melena, No Hematochezia, No Other Genitourinary: No Dysuria, No Frequency, No Incontinence, No Hematuria, No Retention, No Discharge, No Urgency, No Pain, No Flank Pain, No Other, No , No , No , No , No , No , No Musculoskeletal: No Gait Disturbance, No Joint Pain, No Joint Stiffness, No Joint Swelling, No Muscle Pain, No Muscular Weakness, No Pain In:, No Swelling In:, No Other Neurological: No Behavorial Changes, No Bowel/Bladder ControlChng, No Confusion, No Dizziness, No Gait Disturbance, No Headaches, No Impaired Coord/balance, No Memory Loss, No Numbness/Tingling, No Seizures, No Speech Problems, No Tremors, No Visual Changes, No Weakness, No Other Skin: No Dry Skin, No Eczema, No Hair Changes, No Lumps, No Mole Changes, No Mottling, No Nail Changes, No Pruritus, No Rash, No Skin Lesion Changes, No Other, No Acne Physical Exam General: Alert, Oriented X3, Cooperative, mild distress HEENT: Atraumatic, PERRLA, EOMI, Mucous membr. moist/pink Lungs: Clear to auscultation, Normal air movement Heart: irregularly irregular Abdomen: Normal bowel sounds, Soft, No tenderness, No hepatosplenomegaly, No masses Extremities: No clubbing, No cyanosis, No edema, Normal pulses, No tenderness/swelling Skin: No rashes, No breakdown, No significant lesion Neuro: Normal gait, Normal speech, Strength at 5/5 X4 ext, Normal tone, Sensation intact, Cranial nerves 3-12 NL, Reflexes 2+ Psych/Mental Status: Mental status NL, Mood NL Vitals Vitals Vital Signs Date Time Temp Pulse Resp B/P (MAP) Pulse Ox O2 Delivery O2 Flow Rate FiO2 10/20/20 11:15 97.7 83 21 115/59 (77) 93 Room Air 97.7 Labs Labs Laboratory Tests Test 10/20/20 12:22 10/20/20 13:30 White Blood Count 13.0 x10^3/uL (4.0-11.0) Red Blood Count 5.61 x10^6/uL (3.50-5.40) Hemoglobin 15.2 g/dL (12.0-15.5) Hematocrit 47.0 % (36.0-47.0) Mean Corpuscular Volume 84 fL (79-100) Mean Corpuscular Hemoglobin 27 pg (25-35) Mean Corpuscular Hemoglobin Concent 32 g/dL (31-37) Red Cell Distribution Width 15.7 % (11.5-14.5) Platelet Count 213 x10^3/uL (140-400) Neutrophils (%) (Auto) 84 % (31-73) Lymphocytes (%) (Auto) 6 % (24-48) Monocytes (%) (Auto) 10 % (0-9) Eosinophils (%) (Auto) 0 % (0-3) Basophils (%) (Auto) 1 % (0-3) Neutrophils # (Auto) 10.9 x10^3/uL (1.8-7.7) Lymphocytes # (Auto) 0.7 x10^3/uL (1.0-4.8) Monocytes # (Auto) 1.3 x10^3/uL (0.0-1.1) Eosinophils # (Auto) 0.0 x10^3/uL (0.0-0.7) Basophils # (Auto) 0.1 x10^3/uL (0.0-0.2) Sodium Level 138 mmol/L (136-145) Potassium Level 3.7 mmol/L (3.5-5.1) Chloride Level 100 mmol/L (98-107) Carbon Dioxide Level 29 mmol/L (21-32) Anion Gap 9 (6-14) Blood Urea Nitrogen 19 mg/dL (7-20) Creatinine 1.9 mg/dL (0.6-1.0) Estimated GFR (Cockcroft-Gault) 25.8 BUN/Creatinine Ratio 10 (6-20) Glucose Level 118 mg/dL (70-99) Calcium Level 8.8 mg/dL (8.5-10.1) Magnesium Level 1.9 mg/dL (1.8-2.4) Total Bilirubin 1.2 mg/dL (0.2-1.0) Aspartate Amino Transf (AST/SGOT) 20 U/L (15-37) Alanine Aminotransferase (ALT/SGPT) 16 U/L (14-59) Alkaline Phosphatase 102 U/L (46-116) Creatine Kinase 68 U/L (26-192) Creatine Kinase MB (Mass) < 0.5 ng/mL (0.0-3.6) Creatine Kinase MB Relative Index % (0-4) Troponin I Quantitative < 0.017 ng/mL (0.000-0.055) HH-Hiu-D-Type Natriuretic Peptide 2609 pg/mL (0-124) Total Protein 6.1 g/dL (6.4-8.2) Albumin 2.7 g/dL (3.4-5.0) Albumin/Globulin Ratio 0.8 (1.0-1.7) Lipase 36 U/L (73-393) Laboratory Tests Test 10/20/20 12:22 10/20/20 13:30 White Blood Count 13.0 x10^3/uL (4.0-11.0) Red Blood Count 5.61 x10^6/uL (3.50-5.40) Hemoglobin 15.2 g/dL (12.0-15.5) Hematocrit 47.0 % (36.0-47.0) Mean Corpuscular Volume 84 fL (79-100) Mean Corpuscular Hemoglobin 27 pg (25-35) Mean Corpuscular Hemoglobin Concent 32 g/dL (31-37) Red Cell Distribution Width 15.7 % (11.5-14.5) Platelet Count 213 x10^3/uL (140-400) Neutrophils (%) (Auto) 84 % (31-73) Lymphocytes (%) (Auto) 6 % (24-48) Monocytes (%) (Auto) 10 % (0-9) Eosinophils (%) (Auto) 0 % (0-3) Basophils (%) (Auto) 1 % (0-3) Neutrophils # (Auto) 10.9 x10^3/uL (1.8-7.7) Lymphocytes # (Auto) 0.7 x10^3/uL (1.0-4.8) Monocytes # (Auto) 1.3 x10^3/uL (0.0-1.1) Eosinophils # (Auto) 0.0 x10^3/uL (0.0-0.7) Basophils # (Auto) 0.1 x10^3/uL (0.0-0.2) Sodium Level 138 mmol/L (136-145) Potassium Level 3.7 mmol/L (3.5-5.1) Chloride Level 100 mmol/L (98-107) Carbon Dioxide Level 29 mmol/L (21-32) Anion Gap 9 (6-14) Blood Urea Nitrogen 19 mg/dL (7-20) Creatinine 1.9 mg/dL (0.6-1.0) Estimated GFR (Cockcroft-Gault) 25.8 BUN/Creatinine Ratio 10 (6-20) Glucose Level 118 mg/dL (70-99) Calcium Level 8.8 mg/dL (8.5-10.1) Magnesium Level 1.9 mg/dL (1.8-2.4) Total Bilirubin 1.2 mg/dL (0.2-1.0) Aspartate Amino Transf (AST/SGOT) 20 U/L (15-37) Alanine Aminotransferase (ALT/SGPT) 16 U/L (14-59) Alkaline Phosphatase 102 U/L (46-116) Creatine Kinase 68 U/L (26-192) Creatine Kinase MB (Mass) < 0.5 ng/mL (0.0-3.6) Creatine Kinase MB Relative Index % (0-4) Troponin I Quantitative < 0.017 ng/mL (0.000-0.055) YM-Byp-W-Type Natriuretic Peptide 2609 pg/mL (0-124) Total Protein 6.1 g/dL (6.4-8.2) Albumin 2.7 g/dL (3.4-5.0) Albumin/Globulin Ratio 0.8 (1.0-1.7) Lipase 36 U/L (73-393) VTE Prophylaxis Ordered VTE Prophylaxis Devices: Yes VTE Pharmacological Prophylaxi: Yes Assessment/Plan Assessment/Plan A/P: Nausea, vomiting, diarrhea - likely gastroenteritis, will keep NPO, IVF ANN MARIE - vasomotor nephropathy - will hydrate Morbid obesity. Cough - with shortness of breath. Secondary to acute COPD exacerbation. Recovering Diarrhea - will monitor, psyllium HTN - cont meds Hyperlipidemia - cont statin AFIB - on BB and coumadin, will continue, monitor INR CHF - unknown if ischemic cardiomyopathy, seems compensated currently Acute exacerbation of COPD - as above Depression - cont meds DM2 - basal bolus plus insulin while inpatient Mass in the right cerebellum with mass effect H/o Left basal ganglia lacunar infarct FEN - Cardiac diet PPX - coumadin CODE - FULL Dispo - inpatient Justifications for Admission Other Justification SHARRON GRUBBS MD Oct 20, 2020 15:21
[2020-10-20] MEDS ORDERED: IV NORMAL SALINE 1000ML BAG 1,000 ML IV ONE (15:30)
--- NOTE | 2020-10-20 15:49 | ED.ADGEN ---
Past Medical History Past Medical History: A-Fib, Anxiety, CHF, COPD, Diabetes-Type II, High Cholesterol, Hypertension Past Surgical History: Appendectomy, Cholecystectomy, , Hysterectomy, Tubal ligation, Other Additional Past Surgical Histo: bladder Smoking Status: Former Smoker Alcohol Use: None Drug Use: None General Adult EDM: Chief Complaint: NAUSEA/VOMITING/DIARRHA HPI: HPI: Patient is a 75 year old female who presented to the emergency department via EMS with complaints of nausea, vomiting, diarrhea, shortness of breath, and weakness that began this morning. She denies any abdominal pain, chest pain, palpitations, fever, or cough. EMS reports that the patient had a negative Covid test yesterday. Patient was recently admitted at this facility for COPD exacerbation on . She currently denies any pain. Review of Systems: Review of Systems: Complete ROS is negative unless otherwise noted in HPI. Allergies: Allergies: Allergies Coded Allergies Type Severity Reaction Last Updated Verified fexofenadine Allergy Intermediate Palpitations 10/04/15 Yes Physical Exam: PE: See Above Constitutional: Well developed, well nourished, no acute distress, non-toxic appearance, obese. [] HENT: Normocephalic, atraumatic, bilateral external ears normal, nose normal. [] Eyes: PERRLA, EOMI, conjunctiva normal, no discharge. [] Neck: Normal range of motion, no stridor. [] Cardiovascular:Heart rate regular rhythm Lungs & Thorax: Respirations even and unlabored, no retractions, no respiratory distress Abdomen: soft, no tenderness, obese Skin: Warm, dry, no erythema, no rash. [] Extremities: No cyanosis, ROM intact, 2+ edema bilateral lower extremities Neurologic: Alert and oriented X 3, no focal deficits noted. [] Psychologic: Affect normal, judgement normal, mood normal. [] Current Patient Data: Labs: Laboratory Tests Test 10/20/20 12:22 10/20/20 13:30 White Blood Count 13.0 x10^3/uL (4.0-11.0) H Red Blood Count 5.61 x10^6/uL (3.50-5.40) H Hemoglobin 15.2 g/dL (12.0-15.5) Hematocrit 47.0 % (36.0-47.0) Mean Corpuscular Volume 84 fL (79-100) Mean Corpuscular Hemoglobin 27 pg (25-35) Mean Corpuscular Hemoglobin Concent 32 g/dL (31-37) Red Cell Distribution Width 15.7 % (11.5-14.5) H Platelet Count 213 x10^3/uL (140-400) Neutrophils (%) (Auto) 84 % (31-73) H Lymphocytes (%) (Auto) 6 % (24-48) L Monocytes (%) (Auto) 10 % (0-9) H Eosinophils (%) (Auto) 0 % (0-3) Basophils (%) (Auto) 1 % (0-3) Neutrophils # (Auto) 10.9 x10^3/uL (1.8-7.7) H Lymphocytes # (Auto) 0.7 x10^3/uL (1.0-4.8) L Monocytes # (Auto) 1.3 x10^3/uL (0.0-1.1) H Eosinophils # (Auto) 0.0 x10^3/uL (0.0-0.7) Basophils # (Auto) 0.1 x10^3/uL (0.0-0.2) Sodium Level 138 mmol/L (136-145) Potassium Level 3.7 mmol/L (3.5-5.1) Chloride Level 100 mmol/L (98-107) Carbon Dioxide Level 29 mmol/L (21-32) Anion Gap 9 (6-14) Blood Urea Nitrogen 19 mg/dL (7-20) Creatinine 1.9 mg/dL (0.6-1.0) H Estimated GFR (Cockcroft-Gault) 25.8 BUN/Creatinine Ratio 10 (6-20) Glucose Level 118 mg/dL (70-99) H Calcium Level 8.8 mg/dL (8.5-10.1) Magnesium Level 1.9 mg/dL (1.8-2.4) Total Bilirubin 1.2 mg/dL (0.2-1.0) H Aspartate Amino Transferase (AST) 20 U/L (15-37) Alanine Aminotransferase (ALT) 16 U/L (14-59) Alkaline Phosphatase 102 U/L (46-116) Creatine Kinase 68 U/L (26-192) Creatine Kinase MB (Mass) < 0.5 ng/mL (0.0-3.6) Creatine Kinase MB Relative Index % (0-4) Troponin I Quantitative < 0.017 ng/mL (0.000-0.055) XK-Lrd-D-Type Natriuretic Peptide 2609 pg/mL (0-124) H Total Protein 6.1 g/dL (6.4-8.2) L Albumin 2.7 g/dL (3.4-5.0) L Albumin/Globulin Ratio 0.8 (1.0-1.7) L Lipase 36 U/L (73-393) L Laboratory Tests 10/20/20 12:22 Laboratory Tests 10/20/20 13:30 Vital Signs: Vital Signs Date Time Temp Pulse Resp B/P (MAP) Pulse Ox O2 Delivery O2 Flow Rate FiO2 10/20/20 15:15 78 124/68 (86) 99 Nasal Cannula 2.0 10/20/20 11:15 97.7 21 97.7 EKG: EK A. fib, rate 79, no STEMI, read by Dr. Koch [] Heart Score: Risk Factors: Risk Factors: DM, Current or recent (<one month) smoker, HTN, HLP, family history of CAD, obesity. Risk Scores: Score 0 - 3: 2.5% MACE over next 6 weeks - Discharge Home Score 4 - 6: 20.3% MACE over next 6 weeks - Admit for Clinical Observation Score 7 - 10: 72.7% MACE over next 6 weeks - Early Invasive Strategies Radiology/Procedures: Radiology/Procedures: PROCEDURE: CHEST AP ONLY EXAM: Chest, single view. HISTORY: Short of breath. COMPARISON: 10/08/2020 FINDINGS: A frontal view of the chest is obtained. There is no infiltrate, pleural effusion or pneumothorax. There is a stable enlarged cardiac silhouette and there are stable prominent central pulmonary vessels. IMPRESSION: No acute pulmonary finding. Stable cardiomegaly. [] Course & Med Decision Making: Course & Med Decision Making Pertinent Labs and Imaging studies reviewed. (See chart for details) [id number] with Dr. Braden who is the admitting physician, and care was assumed following discussion of patient. Will admit patient to med telemetry for ANN MARIE, nausea vomiting, and diarrhea. Patient's vital signs . Patient remains afebrile, appears nontoxic, respirations even and unlabored. Patient will be admitted to the floor. Patient's case and plan of care also discussed with [] Nidhi Disclaimer: Nidhi Disclaimer: This electronic medical record was generated, in whole or in part, using a voice recognition dictation system. Departure Departure Impression: Primary Impression: ANN MARIE (acute kidney injury) Additional Impression: Nausea, vomiting, and diarrhea Disposition: ADMITTED INPT THIS HOSP Admitting Physician: KATHI (Riffel) Condition: STABLE Referrals: VARGAS SETH MD (PCP) Problem Qualifiers BRIAN KLEIN HEADHUNTER Oct 20, 2020 15:49
[2020-10-20 15:51] LABS: BILIRUBIN,URINE MODERATE (NEG); CLARITY,URINE TURBID; NITRITE,URINE NEGATIVE (NEG); PH,URINE 5.5 (<5.0-8.0); PROTEIN,URINE >=300 mg/dL (NEG-TRACE)
[2020-10-20 15:55] LABS: COLOR,URINE YELLOW
[2020-10-20 16:06] LABS: BACTERIA,URINE MANY /HPF (0-FEW); RBC,URINE 20-40 /HPF (0-2); WBC,URINE TNTC /HPF (0-4)
[2020-10-20 16:07] LABS: HYALINE CASTS, URINE FEW /HPF
[2020-10-20 16:16] LABS: INFLUENZA A PATIENT NEGATIVE (NEGATIVE); INFLUENZA B PATIENT NEGATIVE (NEGATIVE)
[2020-10-20 20:10] VITALS: BP 147/78
[2020-10-20] MEDS ORDERED: ONDANSETRON PF 4 MG/2 ML VIAL. IV PRN (22:00)
[2020-10-20] MEDS: ATORVASTATIN CALCIUM 20 MG TABLET PO SCH (23:00)
[2020-10-20] MEDS: METOPROLOL TART IMMED RELEASE 50 MG TABLET. PO SCH (23:00)
[2020-10-20 23:19] VITALS: BP 145/69
[2020-10-21 03:36] VITALS: BP 130/66
[2020-10-21 07:00] VITALS: BP 143/60
[2020-10-21] MEDS: METOPROLOL TART IMMED RELEASE 50 MG TABLET. PO SCH ×2 (08:56→21:22)
[2020-10-21] MEDS: ASPIRIN ENTERIC COATED 81 MG TABLET.DR. PO SCH (08:56)
[2020-10-21] MEDS: buPROPion SR 150 MG TABLET.SA PO SCH (08:56)
[2020-10-21] MEDS: ISOSORBIDE MONONITRATE ER 30 MG TAB.ER.24H PO SCH (09:00)
[2020-10-21] MEDS: FLUTICASONE 50MCG/NASAL SPRAY 16GM BOTTLE. NS SCH (09:02)
--- NOTE | 2020-10-21 09:53 | PDOC ---
[employer] PROGRESS NOTE Date of Service DOS: DATE: 10/21/20 TIME: 09:50 Chief Complaint Chief Complaint A/P: Nausea, vomiting, diarrhea - likely gastroenteritis, will ADAT ANN MARIE - vasomotor nephropathy - will hydrate Morbid obesity. Cough - with shortness of breath. Secondary to acute COPD exacerbation. 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 Also noted shortness of breath, and weakness that began this morning. She denies any abdominal pain, chest pain, palpitations, fever, or cough. EMS reports that the patient had a negative Covid test 10/19/2020 (she also did have COVID19 8 months ago). Patient was recently admitted at this facility for COPD exacerbation on In ED noted in afib on EKG. Labs with WBC 13, Hb 15.2, platelets 213, Na 138, K 3.7, BUN 19, Cr 1.9, glucose 118, BNP 2609 Chest radiograph with cardiomegaly, no other acute finding. Admitted for further care. Afebrile overnight. Breathing stable. Has some pain on urination. Very weak no further nausea vomiting or diarrhea asking for food. Vitals/I&O Vitals/I&O: Vital Signs Date Time Temp Pulse Resp B/P (MAP) Pulse Ox O2 Delivery O2 Flow Rate FiO2 10/21/20 09:00 77 130/66 10/21/20 07:00 99.7 15 Nasal Cannula 1.0 99.7 10/21/20 03:36 97 I & O 10/20/20 10/20/20 10/21/20 15:00 23:00 07:00 Intake Total 0 ml 210 ml Balance 0 ml 210 ml Physical Exam General: Alert, Oriented X3, Cooperative, mild distress Lungs: Clear Abdomen: Normal bowel sounds, Soft, No tenderness, No hepatosplenomegaly, No masses Extremities: No clubbing, No cyanosis, No edema, Normal pulses, No tenderness/swelling Skin: No rashes, No breakdown, No significant lesion Labs Labs: Laboratory Tests Test 10/20/20 12:22 10/20/20 13:30 10/20/20 15:30 10/20/20 15:34 White Blood Count 13.0 x10^3/uL (4.0-11.0) Red Blood Count 5.61 x10^6/uL (3.50-5.40) Hemoglobin 15.2 g/dL (12.0-15.5) Hematocrit 47.0 % (36.0-47.0) Mean Corpuscular Volume 84 fL (79-100) Mean Corpuscular Hemoglobin 27 pg (25-35) Mean Corpuscular Hemoglobin Concent 32 g/dL (31-37) Red Cell Distribution Width 15.7 % (11.5-14.5) Platelet Count 213 x10^3/uL (140-400) Neutrophils (%) (Auto) 84 % (31-73) Lymphocytes (%) (Auto) 6 % (24-48) Monocytes (%) (Auto) 10 % (0-9) Eosinophils (%) (Auto) 0 % (0-3) Basophils (%) (Auto) 1 % (0-3) Neutrophils # (Auto) 10.9 x10^3/uL (1.8-7.7) Lymphocytes # (Auto) 0.7 x10^3/uL (1.0-4.8) Monocytes # (Auto) 1.3 x10^3/uL (0.0-1.1) Eosinophils # (Auto) 0.0 x10^3/uL (0.0-0.7) Basophils # (Auto) 0.1 x10^3/uL (0.0-0.2) Sodium Level 138 mmol/L (136-145) Potassium Level 3.7 mmol/L (3.5-5.1) Chloride Level 100 mmol/L (98-107) Carbon Dioxide Level 29 mmol/L (21-32) Anion Gap 9 (6-14) Blood Urea Nitrogen 19 mg/dL (7-20) Creatinine 1.9 mg/dL (0.6-1.0) Estimated GFR (Cockcroft-Gault) 25.8 BUN/Creatinine Ratio 10 (6-20) Glucose Level 118 mg/dL (70-99) Calcium Level 8.8 mg/dL (8.5-10.1) Magnesium Level 1.9 mg/dL (1.8-2.4) Total Bilirubin 1.2 mg/dL (0.2-1.0) Aspartate Amino Transf (AST/SGOT) 20 U/L (15-37) Alanine Aminotransferase (ALT/SGPT) 16 U/L (14-59) Alkaline Phosphatase 102 U/L (46-116) Creatine Kinase 68 U/L (26-192) Creatine Kinase MB (Mass) < 0.5 ng/mL (0.0-3.6) Creatine Kinase MB Relative Index % (0-4) Troponin I Quantitative < 0.017 ng/mL (0.000-0.055) IY-Hqd-R-Type Natriuretic Peptide 2609 pg/mL (0-124) Total Protein 6.1 g/dL (6.4-8.2) Albumin 2.7 g/dL (3.4-5.0) Albumin/Globulin Ratio 0.8 (1.0-1.7) Lipase 36 U/L (73-393) Urine Collection Type U cath Urine Color Yellow Urine Clarity Turbid Urine pH 5.5 (<5.0-8.0) Urine Specific [place] 1.020 (1.000-1.030) Urine Protein >=300 mg/dL (NEG-TRACE) Urine Glucose (UA) Negative mg/dL (NEG) Urine Ketones (Stick) Trace mg/dL (NEG) Urine Blood Large (NEG) Urine Nitrite Negative (NEG) Urine Bilirubin Moderate (NEG) Urine Urobilinogen Dipstick 2.0 mg/dL (0.2 mg/dL) Urine Leukocyte Esterase Large (NEG) Urine RBC 20-40 /HPF (0-2) Urine WBC Tntc /HPF (0-4) Urine Squamous Epithelial Cells Few /LPF Urine Bacteria Many /HPF (0-FEW) Urine Hyaline Casts Few /HPF Influenza Type A Antigen Negative (NEGATIVE) Influenza Type B Antigen Negative (NEGATIVE) Assessment and Plan Assessmemt and Plan Problems Medical Problems: (1) ANN MARIE (acute kidney injury) Status: Acute (2) Nausea, vomiting, and diarrhea Status: Acute Comment Review of Relevant I have reviewed the following items raman (where applicable) has been applied. Medications: Current Medications Medications (Trade) Dose Ordered Sig/Shikha Route PRN Reason Start Time Stop Time Status Last Admin Dose Admin Sodium Chloride 1,000 ml @ 125 mls/hr 1X ONCE IV 10/20/20 15:30 10/20/20 23:29 DC 10/20/20 16:03 Amlodipine Besylate (Norvasc) 10 mg DAILY PO 10/21/20 09:00 10/21/20 09:00 Aspirin (Ecotrin) 81 mg DAILY PO 10/21/20 09:00 10/21/20 08:56 Bupropion HCl (Wellbutrin Sr) 150 mg DAILY PO 10/21/20 09:00 10/21/20 08:56 Fluticasone Propionate (Flonase) 2 spray DAILY NS 10/21/20 09:00 10/21/20 09:02 Hydralazine HCl (Apresoline) 100 mg TID PO 10/20/20 23:00 10/21/20 08:56 Isosorbide Mononitrate (Imdur) 30 mg DAILY PO 10/21/20 09:00 10/21/20 09:00 Metoprolol Tartrate (Lopressor) 50 mg BID PO 10/20/20 23:00 10/21/20 08:56 Justifications for Admission Other Justification SHARRON GRUBBS MD Oct 21, 2020 09:53
[2020-10-21 10:23] LABS: BASO # 0.1 x10^3/uL (0.0-0.2); BASO % 1 % (0-3); EOS % 0 % (0-3); HEMATOCRIT 39.7 % (36.0-47.0); HEMOGLOBIN 13.1 g/dL (12.0-15.5); MEAN CORPUSCULAR HEMOGLOBIN 27 pg (25-35); MEAN CORPUSCULAR HGB CONC 33 g/dL (31-37); MEAN CORPUSCULAR VOLUME 83 fL (79-100); MONO # 1.3 x10^3/uL (0.0-1.1); MONO % 11 % (0-9); PLATELET COUNT 194 x10^3/uL (140-400); RED BLOOD COUNT 4.81 x10^6/uL (3.50-5.40); RED CELL DISTRIBUTION WIDTH 15.9 % (11.5-14.5); WHITE BLOOD COUNT 11.3 x10^3/uL (4.0-11.0)
[2020-10-21] MEDS: ACETAMINOPHEN 325 MG TABLET. PO PRN (10:36)
[2020-10-21 10:40] LABS: PROTHROMBIN TIME PATIENT 28.5 SEC (11.7-14.0)
[2020-10-21 10:42] LABS: ALBUMIN 2.5 g/dL (3.4-5.0); ALBUMIN/GLOBULIN RATIO 0.7 (1.0-1.7); CALCIUM 8.4 mg/dL (8.5-10.1); CREATININE 1.8 mg/dL (0.6-1.0); GFR 27.5; POTASSIUM 3.5 mmol/L (3.5-5.1); TOTAL BILIRUBIN 1.1 mg/dL (0.2-1.0)
[2020-10-21 10:43] LABS: LYMPH # 0.5 x10^3/uL (1.0-4.8); LYMPH % 5 % (24-48); NEUT # 9.4 x10^3/uL (1.8-7.7); NEUT % 83 % (31-73)
[2020-10-21] MEDS: cefTRIAXone IV Push 1 GM VIAL. IVP SCH (10:46)
[2020-10-21 11:00] VITALS: BP 141/74
[2020-10-21] MEDS ORDERED: IV NORMAL SALINE 1000ML BAG 1,000 ML IV ONE (11:15)
--- NOTE | 2020-10-21 11:28 | NUR ---
SW following for discharge planning. Spoke with RN and reviewed chart. Pt from [facility]. SW phoned and faxed clinicals to update. Pt on , COVID pending, IV Rocephin. PT/OT to evaluate. SW following.
[2020-10-21 15:00] VITALS: BP 111/53
[2020-10-21] MEDS: WARFARIN 3 MG TABLET. PO SCH (15:14)
[2020-10-21] MEDS: traMADol 50 MG TABLET PO PRN (16:56)
[2020-10-21 19:00] VITALS: BP 122/61
[2020-10-21] MEDS: ATORVASTATIN CALCIUM 20 MG TABLET PO SCH (21:22)
[2020-10-21 23:00] VITALS: BP 132/58
[2020-10-22 03:00] VITALS: BP 131/63
[2020-10-22 07:00] VITALS: BP 144/65
[2020-10-22] MEDS: traMADol 50 MG TABLET PO PRN (08:12)
[2020-10-22] MEDS: cefTRIAXone IV Push 1 GM VIAL. IVP SCH (08:13)
[2020-10-22] MEDS: METOPROLOL TART IMMED RELEASE 50 MG TABLET. PO SCH ×2 (08:14→21:04)
[2020-10-22] MEDS: ASPIRIN ENTERIC COATED 81 MG TABLET.DR. PO SCH (08:14)
[2020-10-22] MEDS: buPROPion SR 150 MG TABLET.SA PO SCH (08:16)
[2020-10-22] MEDS: FLUTICASONE 50MCG/NASAL SPRAY 16GM BOTTLE. NS SCH (08:16)
[2020-10-22] MEDS: ISOSORBIDE MONONITRATE ER 30 MG TAB.ER.24H PO SCH (08:16)
[2020-10-22] MEDS ORDERED: DEXTROSE 50% 25 GM / 50ML DISP.SYRIN. IV PRN (09:00)
--- NOTE | 2020-10-22 09:02 | PDOC ---
[employer] PROGRESS NOTE Date of Service DOS: DATE: 10/22/20 TIME: 09:01 Chief Complaint Chief Complaint A/P: Nausea, vomiting, diarrhea - likely gastroenteritis, will ADAT ANN MARIE - vasomotor nephropathy - will hydrate Morbid obesity. Cough - with shortness of breath. Secondary to acute COPD exacerbation. 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 Also noted shortness of breath, and weakness that began this morning. She denies any abdominal pain, chest pain, palpitations, fever, or cough. EMS reports that the patient had a negative Covid test 10/19/2020 (she also did have COVID19 8 months ago). Patient was recently admitted at this facility for COPD exacerbation on In ED noted in afib on EKG. Labs with WBC 13, Hb 15.2, platelets 213, Na 138, K 3.7, BUN 19, Cr 1.9, glucose 118, BNP 2609 Chest radiograph with cardiomegaly, no other acute finding. Admitted for further care. 10/21: Afebrile overnight. Breathing stable. Has some pain on urination. Very weak no further nausea vomiting or diarrhea asking for food. Afebrile. HR in the 30s metoprolol. Culture positive for greater than 100,000 CFU E. coli. Per her daughter she had fallen at her facility. Plan: CT head and neck F/u urine culture - cont rocephin COVID negative, ok to transfer to [facility] Vitals/I&O Vitals/I&O: Vital Signs Date Time Temp Pulse Resp B/P (MAP) Pulse Ox O2 Delivery O2 Flow Rate FiO2 10/22/20 08:16 85 144/65 10/22/20 08:12 95 Room Air 10/22/20 07:00 99.6 18 1.0 99.6 I & O 10/21/20 10/21/20 10/22/20 15:00 23:00 07:00 Intake Total 800 ml Output Total 151 ml 0 ml Balance 649 ml 0 ml Physical Exam General: Alert, Oriented X3, Cooperative, mild distress Lungs: Clear Abdomen: Normal bowel sounds, Soft, No tenderness, No hepatosplenomegaly, No masses Extremities: No clubbing, No cyanosis, No edema, Normal pulses, No tenderness/swelling Skin: No rashes, No breakdown, No significant lesion Labs Labs: Laboratory Tests Test 10/21/20 09:40 10/21/20 11:41 10/21/20 16:02 10/22/20 07:15 White Blood Count 11.3 x10^3/uL (4.0-11.0) Red Blood Count 4.81 x10^6/uL (3.50-5.40) Hemoglobin 13.1 g/dL (12.0-15.5) Hematocrit 39.7 % (36.0-47.0) Mean Corpuscular Volume 83 fL (79-100) Mean Corpuscular Hemoglobin 27 pg (25-35) Mean Corpuscular Hemoglobin Concent 33 g/dL (31-37) Red Cell Distribution Width 15.9 % (11.5-14.5) Platelet Count 194 x10^3/uL (140-400) Neutrophils (%) (Auto) 83 % (31-73) Lymphocytes (%) (Auto) 5 % (24-48) Monocytes (%) (Auto) 11 % (0-9) Eosinophils (%) (Auto) 0 % (0-3) Basophils (%) (Auto) 1 % (0-3) Neutrophils # (Auto) 9.4 x10^3/uL (1.8-7.7) Lymphocytes # (Auto) 0.5 x10^3/uL (1.0-4.8) Monocytes # (Auto) 1.3 x10^3/uL (0.0-1.1) Eosinophils # (Auto) 0.0 x10^3/uL (0.0-0.7) Basophils # (Auto) 0.1 x10^3/uL (0.0-0.2) Prothrombin Time 28.5 SEC (11.7-14.0) Prothromb Time International Ratio 2.7 (0.8-1.1) Sodium Level 137 mmol/L (136-145) Potassium Level 3.5 mmol/L (3.5-5.1) Chloride Level 102 mmol/L (98-107) Carbon Dioxide Level 29 mmol/L (21-32) Anion Gap 6 (6-14) Blood Urea Nitrogen 24 mg/dL (7-20) Creatinine 1.8 mg/dL (0.6-1.0) Estimated GFR (Cockcroft-Gault) 27.5 BUN/Creatinine Ratio 13 (6-20) Glucose Level 166 mg/dL (70-99) Calcium Level 8.4 mg/dL (8.5-10.1) Total Bilirubin 1.1 mg/dL (0.2-1.0) Aspartate Amino Transf (AST/SGOT) 21 U/L (15-37) Alanine Aminotransferase (ALT/SGPT) 17 U/L (14-59) Alkaline Phosphatase 91 U/L (46-116) Total Protein 6.0 g/dL (6.4-8.2) Albumin 2.5 g/dL (3.4-5.0) Albumin/Globulin Ratio 0.7 (1.0-1.7) Glucose (Fingerstick) 190 mg/dL (70-99) 274 mg/dL (70-99) 210 mg/dL (70-99) Assessment and Plan Assessmemt and Plan Problems Medical Problems: (1) ANN MARIE (acute kidney injury) Status: Acute (2) Nausea, vomiting, and diarrhea Status: Acute Comment Review of Relevant I have reviewed the following items raman (where applicable) has been applied. Medications: Current Medications Medications (Trade) Dose Ordered Sig/Shikha Route PRN Reason Start Time Stop Time Status Last Admin Dose Admin Warfarin Sodium (Coumadin) 6 mg DAILY16 PO 10/21/20 16:00 10/21/20 15:14 Ceftriaxone Sodium (Rocephin) 1 gm Q24H IVP 10/21/20 10:00 10/22/20 08:13 Sodium Chloride 1,000 ml @ 125 mls/hr 1X ONCE IV 10/21/20 11:15 10/21/20 19:14 DC 10/21/20 11:11 Tramadol HCl (Ultram) 50 mg PRN Q6HRS PRN PO MILD TO MODERATE PAIN 10/21/20 15:15 10/22/20 08:12 Justifications for Admission Other Justification SHARRON GRUBBS MD Oct 22, 2020 09:02
[2020-10-22] MEDS: INSULIN LISPRO 300 UNITS/3 ML VIAL. SQ SCH ×3 (09:43→18:03)
[2020-10-22 10:06] LABS: CALCIUM 8.2 mg/dL (8.5-10.1); CREATININE 1.3 mg/dL (0.6-1.0); POTASSIUM 3.4 mmol/L (3.5-5.1)
[2020-10-22] MEDS ORDERED: POTASSIUM BICARB 20 MEQ EFFERVESCENT TABLET. PO ONE (10:15)
[2020-10-22] MEDS ORDERED: ATROPINE 0.5 MG/5 ML DISP.SYRINGE. IV ONE (10:15)
--- NOTE | 2020-10-22 10:28 | EKG ---
[facility] [address] [place] [address] Test Date: 2020-10-22 Test Time: 10:20:40 Pat Name: MICHAELA COOPER Department: Room: [facility] Gender: F Procurement Professional: : 1945 Requested By: SHARRON GRUBBS Order Number: [id number] Reading MD: Measurements Intervals [place] Rate: 78 P: OR: QRS: 0 QRSD: 100 T: 63 QT: 376 QTc: 432 Interpretive Statements IRREGULAR RHYTHM, NO P-WAVE FOUND LEFTWARD AXIS LOW LIMB LEAD VOLTAGE ST & T ABNORMALITY, CONSIDER HIGH LATERAL ISCHEMIA OR LEFT VENTRICULAR STRAIN INFERIOR ISCHEMIA OR LEFT VENTRICULAR STRAIN ABNORMAL ECG RI6.02 Compared to ECG 10/20/2020 12:09:34 T-wave abnormality now present Possible ischemia now present Atrial fibrillation no longer present
[2020-10-22 10:33] VITALS: BP 131/62
--- NOTE | 2020-10-22 14:40 | RAD ---
EXAM: Head and cervical spine CT without contrast. HISTORY: Fall. TECHNIQUE: Computed tomographic images of the head and cervical spine were obtained without contrast. *One or more of the following individualized dose reduction techniques were utilized for this examina tion: 1. Automated exposure control. 2. Adjustment of the mA and/or kV according to patient size. 3. Use of iterative reconstruction technique. COMPARISON: 02/29/2020. FINDINGS: Head: There is no acute hemorrhage. There is no mass effect or midline shift. There is no hydrocephal us. There is cerebral volume loss with increased bifrontal extra-axial space. There is encephalomalac ia due to chronic infarction involving the right cerebellum. There is also a suspected small chronic infarct within the left basal ganglia. There are bilateral cerebral white matter changes, likely due to chronic small vessel disease. There is mild. Sinus because of thickening. The orbits and mastoid a ir cells are unremarkable. No suspicious calvarial lesion is seen Cervical spine: There is cervical kyphosis and mild multilevel degenerative listhesis. There is multi level endplate remodeling and osteophytosis. There is disc space narrowing at C5-C6. There is multile renetta facet and uncovertebral arthropathy. There is no fracture or suspicious osseous lesion. The combi nation of degenerative changes results in moderate right and mild left foraminal stenosis at C3-C4, m oderate left greater than right foraminal stenosis at C4-C5, severe right and moderate left foraminal and mild central canals of cysts at C5-C6, and mild central canal stenosis at C6-C7. IMPRESSION: 1. No acute intracranial finding or evidence acute cervical spine trauma. 2. Bilateral cerebral white matter changes, likely due to chronic small vessel disease. 3. Chronic infarct within the right cerebellum and likely the left basal ganglia. 4. Multilevel degenerative change involving the cervical spine, described above. Electronically signed by: Jenn Bhandari MD (10/22/2020 2:38 PM) [id number]
[2020-10-22 14:47] VITALS: BP 109/55
[2020-10-22] MEDS: WARFARIN 3 MG TABLET. PO SCH (16:21)
--- NOTE | 2020-10-22 17:34 | NUR ---
YANELI following for discharge planning. Spoke with RN and reviewed chart. Pt from [facility]. SW contacted by [facility] and pt is a current client. HH resumption orders will be provided on discharge. SW following.
[2020-10-22 19:00] VITALS: BP 123/63
[2020-10-22] MEDS: ATORVASTATIN CALCIUM 20 MG TABLET PO SCH (21:03)
[2020-10-22] MEDS: CEFDINIR 300 MG CAPSULE PO SCH (21:03)
[2020-10-22 23:00] VITALS: BP 129/60
[2020-10-23] VITALS (9 sets, daily range): BP systolic 113–171; BP diastolic 50–93
[2020-10-23 04:56] LABS: BASO # 0.1 x10^3/uL (0.0-0.2); BASO % 1 % (0-3); EOS # 0.1 x10^3/uL (0.0-0.7); EOS % 1 % (0-3); HEMATOCRIT 35.4 % (36.0-47.0); LYMPH # 0.6 x10^3/uL (1.0-4.8); LYMPH % 8 % (24-48); MEAN CORPUSCULAR HEMOGLOBIN 28 pg (25-35); MEAN CORPUSCULAR HGB CONC 34 g/dL (31-37); MEAN CORPUSCULAR VOLUME 82 fL (79-100); MONO # 0.8 x10^3/uL (0.0-1.1); MONO % 11 % (0-9); NEUT # 6.2 x10^3/uL (1.8-7.7); NEUT % 80 % (31-73); PLATELET COUNT 189 x10^3/uL (140-400); RED BLOOD COUNT 4.32 x10^6/uL (3.50-5.40); WHITE BLOOD COUNT 7.7 x10^3/uL (4.0-11.0)
[2020-10-23 05:04] LABS: PROTHROMBIN TIME PATIENT 26.7 SEC (11.7-14.0)
[2020-10-23 05:13] LABS: CREATININE 1.1 mg/dL (0.6-1.0); GFR 48.6; POTASSIUM 3.6 mmol/L (3.5-5.1)
[2020-10-23] MEDS: ASPIRIN ENTERIC COATED 81 MG TABLET.DR. PO SCH (08:52)
[2020-10-23] MEDS: buPROPion SR 150 MG TABLET.SA PO SCH (08:52)
[2020-10-23] MEDS: CEFDINIR 300 MG CAPSULE PO SCH (08:52)
[2020-10-23] MEDS: ISOSORBIDE MONONITRATE ER 30 MG TAB.ER.24H PO SCH (08:53)
[2020-10-23] MEDS: FLUTICASONE 50MCG/NASAL SPRAY 16GM BOTTLE. NS SCH (08:54)
[2020-10-23] MEDS: INSULIN LISPRO 300 UNITS/3 ML VIAL. SQ SCH ×3 (09:10→17:26)
--- NOTE | 2020-10-23 11:26 | PDOC ---
[employer] PROGRESS NOTE Date of Service DOS: DATE: 10/23/20 TIME: 11:25 Chief Complaint Chief Complaint A/P: ESBL UTI - will place PICC, start Merrem. Consult ID. Nausea, vomiting, diarrhea - likely gastroenteritis, resolved ANN MARIE - vasomotor nephropathy - will hydrate, has been improving Morbid obesity - Cough - with shortness of breath. Secondary to acute COPD exacerbation. 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 Also noted shortness of breath, and weakness that began this morning. She denies any abdominal pain, chest pain, palpitations, fever, or cough. EMS reports that the patient had a negative Covid test 10/19/2020 (she also did have COVID19 8 months ago). Patient was recently admitted at this facility for COPD exacerbation on [place] davin In ED noted in afib on EKG. Labs with WBC 13, Hb 15.2, platelets 213, Na 138, K 3.7, BUN 19, Cr 1.9, glucose 118, BNP 2609 Chest radiograph with cardiomegaly, no other acute finding. Admitted for further care. 10/21: Afebrile overnight. Breathing stable. Has some pain on urination. Very weak no further nausea vomiting or diarrhea asking for food. 10/22: Afebrile. HR in the 30s metoprolol. Culture positive for greater than 100,000 CFU E. coli. Per her daughter she had fallen at her facility. Afebrile. CT head neck negative for acute change. Urine culture returned with ESBL. Plan: PICC and Merrem Consult ID COVID negative, ok to transfer to [facility] Vitals/I&O Vitals/I&O: Vital Signs Date Time Temp Pulse Resp B/P (MAP) Pulse Ox O2 Delivery O2 Flow Rate FiO2 10/23/20 08:53 75 133/63 10/23/20 08:00 Room Air 1.0 10/23/20 07:00 98.8 14 92 98.8 I & O 10/22/20 10/22/20 10/23/20 15:00 23:00 07:00 Intake Total 0 ml Balance 0 ml Physical Exam General: Alert, Oriented X3, Cooperative, mild distress Lungs: Clear Abdomen: Normal bowel sounds, Soft, No tenderness, No hepatosplenomegaly, No masses Extremities: No clubbing, No cyanosis, No edema, Normal pulses, No tenderness/swelling Skin: No rashes, No breakdown, No significant lesion Labs Labs: Laboratory Tests Test 10/22/20 16:19 10/22/20 19:55 10/23/20 04:30 10/23/20 07:35 Glucose (Fingerstick) 155 mg/dL (70-99) 232 mg/dL (70-99) 173 mg/dL (70-99) White Blood Count 7.7 x10^3/uL (4.0-11.0) Red Blood Count 4.32 x10^6/uL (3.50-5.40) Hemoglobin 12.0 g/dL (12.0-15.5) Hematocrit 35.4 % (36.0-47.0) Mean Corpuscular Volume 82 fL (79-100) Mean Corpuscular Hemoglobin 28 pg (25-35) Mean Corpuscular Hemoglobin Concent 34 g/dL (31-37) Red Cell Distribution Width 16.0 % (11.5-14.5) Platelet Count 189 x10^3/uL (140-400) Neutrophils (%) (Auto) 80 % (31-73) Lymphocytes (%) (Auto) 8 % (24-48) Monocytes (%) (Auto) 11 % (0-9) Eosinophils (%) (Auto) 1 % (0-3) Basophils (%) (Auto) 1 % (0-3) Neutrophils # (Auto) 6.2 x10^3/uL (1.8-7.7) Lymphocytes # (Auto) 0.6 x10^3/uL (1.0-4.8) Monocytes # (Auto) 0.8 x10^3/uL (0.0-1.1) Eosinophils # (Auto) 0.1 x10^3/uL (0.0-0.7) Basophils # (Auto) 0.1 x10^3/uL (0.0-0.2) Prothrombin Time 26.7 SEC (11.7-14.0) Prothromb Time International Ratio 2.5 (0.8-1.1) Sodium Level 136 mmol/L (136-145) Potassium Level 3.6 mmol/L (3.5-5.1) Chloride Level 101 mmol/L (98-107) Carbon Dioxide Level 27 mmol/L (21-32) Anion Gap 8 (6-14) Blood Urea Nitrogen 20 mg/dL (7-20) Creatinine 1.1 mg/dL (0.6-1.0) Estimated GFR (Cockcroft-Gault) 48.6 Glucose Level 169 mg/dL (70-99) Calcium Level 8.0 mg/dL (8.5-10.1) Assessment and Plan Assessmemt and Plan Problems Medical Problems: (1) ANN MARIE (acute kidney injury) Status: Acute (2) Nausea, vomiting, and diarrhea Status: Acute Comment Review of Relevant I have reviewed the following items raman (where applicable) has been applied. Medications: Current Medications Medications (Trade) Dose Ordered Sig/Shikha Route PRN Reason Start Time Stop Time Status Last Admin Dose Admin Cefdinir (Omnicef) 300 mg BID PO 10/22/20 21:00 10/23/20 08:52 Justifications for Admission Other Justification SHARRON GRUBBS MD Oct 23, 2020 11:26
[2020-10-23] MEDS: METOPROLOL TART IMMED RELEASE 50 MG TABLET. PO SCH ×2 (11:51→22:50)
[2020-10-23] MEDS ORDERED: LIDOCAINE WITH 8.4% SOD BICARB 3 ML DISP.SYRIN. ONE (14:12)
[2020-10-23] MEDS ORDERED: LIDOCAINE WITH 8.4% SOD BICARB 3 ML DISP.SYRIN. INJ ONE (14:15)
[2020-10-23] MEDS: MEROPENEM 500 MG in IV NORMAL SALINE 50ML 50 ML IV SCH ×2 (15:06→22:47)
[2020-10-23] MEDS: WARFARIN 3 MG TABLET. PO SCH (15:07)
--- NOTE | 2020-10-23 15:35 | RAD ---
Exam: Fluoroscopic and ultrasound guided right percutaneous inserted central venous catheter placement 10/23/2020 1:31 PM .Indication: ESBL UTI, IV antibiotics Technique: Informed oral and written consent were obtained. The right upper extremity was prepped and draped using sterile barrier technique. All elements of maximal sterile barrier technique including the use of a cap, mask, sterile gown, sterile gloves, large sterile sheet, appropriate hand hygiene, and 2% chlorhexidine for cutaneous antisepsis (or acceptable alternative antiseptic per current guidelines) were followed for this procedure.. Real-time ultrasound demonstrated a patent right basilic vein which was prepped and draped in usual sterile fashion. 1% lidocaine used for local anesthesia. Using real-time ultrasound guidance the access needle percutaneously punctured the selected right basilic vein. Reference ultrasound images were saved to the medical record. A guidewire was advanced through the needle to the cavoatrial junction, and a peel-away sheath placed. The catheter was cut to length and inserted through the peel-away sheath such that its tip is at the cavoatrial junction. The wire and sheath were removed, and the catheter secured in place, and a sterile dressing was applied. Catheter was found to flush and aspirate normally. No immediate complications are identified. FLUORO TIME: 0.2 DOSE AREA PRODUCT: 1 Gycm2 Impression: Ultrasound and fluoroscopically guided placement of a right upper extremity PICC line.
--- NOTE | 2020-10-23 16:09 | NUR ---
SW following for discharge planning. Spoke with RN and reviewed chart. Pt from [facility]. SW phoned and faxed clinicals to [facility]. Pt added to possible weekend discharge list.
[2020-10-23] MEDS: INSULIN GLARGINE SYRINGE. SQ SCH (22:48)
[2020-10-23] MEDS: ATORVASTATIN CALCIUM 20 MG TABLET PO SCH (22:50)
[2020-10-24 03:00] VITALS: BP 128/53
[2020-10-24 05:25] LABS: BASO % 1 % (0-3); EOS # 0.1 x10^3/uL (0.0-0.7); EOS % 1 % (0-3); HEMATOCRIT 33.1 % (36.0-47.0); HEMOGLOBIN 11.1 g/dL (12.0-15.5); LYMPH # 0.5 x10^3/uL (1.0-4.8); LYMPH % 5 % (24-48); MEAN CORPUSCULAR HEMOGLOBIN 28 pg (25-35); MEAN CORPUSCULAR HGB CONC 34 g/dL (31-37); MEAN CORPUSCULAR VOLUME 82 fL (79-100); MONO # 0.6 x10^3/uL (0.0-1.1); MONO % 7 % (0-9); NEUT % 87 % (31-73); PLATELET COUNT 210 x10^3/uL (140-400); RED BLOOD COUNT 4.03 x10^6/uL (3.50-5.40); RED CELL DISTRIBUTION WIDTH 15.4 % (11.5-14.5); WHITE BLOOD COUNT 9.3 x10^3/uL (4.0-11.0)
[2020-10-24] MEDS: MEROPENEM 500 MG in IV NORMAL SALINE 50ML 50 ML IV SCH ×3 (05:25→21:04)
[2020-10-24 05:37] LABS: ALBUMIN 2.4 g/dL (3.4-5.0); CALCIUM 8.3 mg/dL (8.5-10.1); CREATININE 1.1 mg/dL (0.6-1.0); GFR 48.6; POTASSIUM 3.8 mmol/L (3.5-5.1)
[2020-10-24 07:00] VITALS: BP 131/61
[2020-10-24] MEDS: METOPROLOL TART IMMED RELEASE 50 MG TABLET. PO SCH ×2 (08:41→21:03)
[2020-10-24] MEDS: ASPIRIN ENTERIC COATED 81 MG TABLET.DR. PO SCH (08:42)
[2020-10-24] MEDS: ISOSORBIDE MONONITRATE ER 30 MG TAB.ER.24H PO SCH (08:42)
[2020-10-24] MEDS: buPROPion SR 150 MG TABLET.SA PO SCH (08:42)
[2020-10-24] MEDS: FLUTICASONE 50MCG/NASAL SPRAY 16GM BOTTLE. NS SCH (08:43)
[2020-10-24] MEDS: INSULIN LISPRO 300 UNITS/3 ML VIAL. SQ SCH ×3 (08:51→16:49)
--- NOTE | 2020-10-24 08:52 | PDOC ---
Infectious Disease Note Vital Sign Vital Signs Vital Signs Date Time Temp Pulse Resp B/P (MAP) Pulse Ox O2 Delivery O2 Flow Rate FiO2 10/24/20 03:00 98.6 83 24 128/53 (78) 93 Nasal Cannula 2.0 98.6 Labs Lab Laboratory Tests Test 10/23/20 12:09 10/23/20 16:53 10/23/20 20:40 10/24/20 04:30 Glucose (Fingerstick) 233 mg/dL (70-99) 259 mg/dL (70-99) 201 mg/dL (70-99) White Blood Count 9.3 x10^3/uL (4.0-11.0) Red Blood Count 4.03 x10^6/uL (3.50-5.40) Hemoglobin 11.1 g/dL (12.0-15.5) Hematocrit 33.1 % (36.0-47.0) Mean Corpuscular Volume 82 fL (79-100) Mean Corpuscular Hemoglobin 28 pg (25-35) Mean Corpuscular Hemoglobin Concent 34 g/dL (31-37) Red Cell Distribution Width 15.4 % (11.5-14.5) Platelet Count 210 x10^3/uL (140-400) Neutrophils (%) (Auto) 87 % (31-73) Lymphocytes (%) (Auto) 5 % (24-48) Monocytes (%) (Auto) 7 % (0-9) Eosinophils (%) (Auto) 1 % (0-3) Basophils (%) (Auto) 1 % (0-3) Neutrophils # (Auto) 8.0 x10^3/uL (1.8-7.7) Lymphocytes # (Auto) 0.5 x10^3/uL (1.0-4.8) Monocytes # (Auto) 0.6 x10^3/uL (0.0-1.1) Eosinophils # (Auto) 0.1 x10^3/uL (0.0-0.7) Basophils # (Auto) 0.0 x10^3/uL (0.0-0.2) Prothrombin Time 25.0 SEC (11.7-14.0) Prothromb Time International Ratio 2.3 (0.8-1.1) Sodium Level 136 mmol/L (136-145) Potassium Level 3.8 mmol/L (3.5-5.1) Chloride Level 101 mmol/L (98-107) Carbon Dioxide Level 27 mmol/L (21-32) Anion Gap 8 (6-14) Blood Urea Nitrogen 18 mg/dL (7-20) Creatinine 1.1 mg/dL (0.6-1.0) Estimated GFR (Cockcroft-Gault) 48.6 Glucose Level 209 mg/dL (70-99) Calcium Level 8.3 mg/dL (8.5-10.1) Phosphorus Level 2.0 mg/dL (2.6-4.7) Albumin 2.4 g/dL (3.4-5.0) Micro Microbiology 10/20/20 Urine Culture - Final, Complete 10/20/20 Antimicrobic Susceptibility - Final, Complete Objective Assessment ESBL UTI 10/20 - Meropenem 10/23 ANN MARIE Leukocytosis - better Afib DM COPD exacerbation Morbid Obesity Plan Plan of Care Cont Meropenem for now but change to po soon Monitor resp status F/u labs and cults Thank you D/w nursing # [id number] RUTHY SAHU MD Oct 24, 2020 08:52
--- NOTE | 2020-10-24 09:13 | PDOC ---
[employer] PROGRESS NOTE Date of Service DOS: DATE: 10/24/20 TIME: 09:13 Chief Complaint Chief Complaint A/P: ESBL UTI - placed PICC, Merrem. Consulted ID. Will need at least 1 additional day IV, then can consider d/c PICC and change to fosfomycin now that she had renal recovery Nausea, vomiting, diarrhea - likely gastroenteritis, resolved ANN MARIE - vasomotor nephropathy - will hydrate, has been improving Morbid obesity - Cough - with shortness of breath. Secondary to acute COPD exacerbation. 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 Also noted shortness of breath, and weakness that began this morning. She denies any abdominal pain, chest pain, palpitations, fever, or cough. EMS reports that the patient had a negative Covid test 10/19/2020 (she also did have COVID19 8 months ago). Patient was recently admitted at this facility for COPD exacerbation on [place] davin In ED noted in afib on EKG. Labs with WBC 13, Hb 15.2, platelets 213, Na 138, K 3.7, BUN 19, Cr 1.9, glucose 118, BNP 2609 Chest radiograph with cardiomegaly, no other acute finding. Admitted for further care. 10/21: Afebrile overnight. Breathing stable. Has some pain on urination. Very weak no further nausea vomiting or diarrhea asking for food. 10/22: Afebrile. HR in the 30s metoprolol. Culture positive for greater than 100,000 CFU E. coli. Per her daughter she had fallen at her facility. 10/23: Afebrile. CT head neck negative for acute change. Urine culture returned with ESBL. PICC and merrem started Afebrile. Feeling improved stronger. Shortness of breath or chest pain. Plan: COVID negative May be able to d/c merrem and change to fosfomycin in next 24 hours Vitals/I&O Vitals/I&O: Vital Signs Date Time Temp Pulse Resp B/P (MAP) Pulse Ox O2 Delivery O2 Flow Rate FiO2 10/24/20 08:42 76 131/61 10/24/20 03:00 98.6 24 93 Nasal Cannula 2.0 98.6 I & O 10/23/20 10/23/20 10/24/20 15:00 23:00 07:00 Intake Total 240 ml Balance 240 ml Physical Exam General: Alert, Oriented X3, Cooperative, mild distress Lungs: Clear Abdomen: Normal bowel sounds, Soft, No tenderness, No hepatosplenomegaly, No masses Extremities: No clubbing, No cyanosis, No edema, Normal pulses, No tenderness/swelling Skin: No rashes, No breakdown, No significant lesion Labs Labs: Laboratory Tests Test 10/23/20 12:09 10/23/20 16:53 10/23/20 20:40 10/24/20 04:30 Glucose (Fingerstick) 233 mg/dL (70-99) 259 mg/dL (70-99) 201 mg/dL (70-99) White Blood Count 9.3 x10^3/uL (4.0-11.0) Red Blood Count 4.03 x10^6/uL (3.50-5.40) Hemoglobin 11.1 g/dL (12.0-15.5) Hematocrit 33.1 % (36.0-47.0) Mean Corpuscular Volume 82 fL (79-100) Mean Corpuscular Hemoglobin 28 pg (25-35) Mean Corpuscular Hemoglobin Concent 34 g/dL (31-37) Red Cell Distribution Width 15.4 % (11.5-14.5) Platelet Count 210 x10^3/uL (140-400) Neutrophils (%) (Auto) 87 % (31-73) Lymphocytes (%) (Auto) 5 % (24-48) Monocytes (%) (Auto) 7 % (0-9) Eosinophils (%) (Auto) 1 % (0-3) Basophils (%) (Auto) 1 % (0-3) Neutrophils # (Auto) 8.0 x10^3/uL (1.8-7.7) Lymphocytes # (Auto) 0.5 x10^3/uL (1.0-4.8) Monocytes # (Auto) 0.6 x10^3/uL (0.0-1.1) Eosinophils # (Auto) 0.1 x10^3/uL (0.0-0.7) Basophils # (Auto) 0.0 x10^3/uL (0.0-0.2) Prothrombin Time 25.0 SEC (11.7-14.0) Prothromb Time International Ratio 2.3 (0.8-1.1) Sodium Level 136 mmol/L (136-145) Potassium Level 3.8 mmol/L (3.5-5.1) Chloride Level 101 mmol/L (98-107) Carbon Dioxide Level 27 mmol/L (21-32) Anion Gap 8 (6-14) Blood Urea Nitrogen 18 mg/dL (7-20) Creatinine 1.1 mg/dL (0.6-1.0) Estimated GFR (Cockcroft-Gault) 48.6 Glucose Level 209 mg/dL (70-99) Calcium Level 8.3 mg/dL (8.5-10.1) Phosphorus Level 2.0 mg/dL (2.6-4.7) Albumin 2.4 g/dL (3.4-5.0) Test 10/24/20 07:38 Glucose (Fingerstick) 207 mg/dL (70-99) Assessment and Plan Assessmemt and Plan Problems Medical Problems: (1) ANN MARIE (acute kidney injury) Status: Acute (2) Nausea, vomiting, and diarrhea Status: Acute Comment Review of Relevant I have reviewed the following items raman (where applicable) has been applied. Medications: Current Medications Medications (Trade) Dose Ordered Sig/Shikha Route PRN Reason Start Time Stop Time Status Last Admin Dose Admin Meropenem 500 mg/ Sodium Chloride 50 ml @ 100 mls/hr Q8HRS IV 10/23/20 14:00 10/24/20 05:25 Insulin Glargine (Lantus Syringe) 8 unit QHS SQ 10/23/20 21:00 10/23/20 22:48 Justifications for Admission Other Justification SHARRON GRUBBS MD Oct 24, 2020 09:13
--- NOTE | 2020-10-24 09:46 | CONS ---
DATE OF CONSULTATION: 10/24/2020 LOCATION: The patient's room 520 REQUESTING PHYSICIAN: Darwin Braden MD REASON FOR CONSULTATION: ESBL UTI. HISTORY OF PRESENT ILLNESS: The patient is a 75-year-old female, a assisted resident with history of morbid obesity, atrial fibrillation, diabetes, COPD, who was admitted with nausea, vomiting, diarrhea since being diagnosed with COPD exacerbation and ESBL urinary tract infection. Urine cultures were collected on the , she has been changed to meropenem, starting on the . Currently, she is lying in bed, states she is feeling some better. She did have some dysuria and frequency, but denied any fever, chills or sweats. No gross shortness of air or cough. She had no blood in her urine. Denies any diarrhea. PAST MEDICAL HISTORY: Positive for AFib, hypertension, hyperlipidemia, asthma, COPD, dementia, chronic kidney disease, depression. PAST SURGICAL HISTORY: Positive for appendectomy, cholecystectomy, tubal ligation, hysterectomy. REVIEW OF SYSTEMS: Otherwise negative except for noted above. SOCIAL HISTORY: alf resident. No tobacco, no alcohol, no pets. FAMILY HISTORY: Positive for diabetes. ALLERGIES: LISTED FEXOFENADINE. CURRENT MEDICATIONS: Include meropenem; amlodipine; aspirin; Lipitor; Wellbutrin; she had been on cefdinir, which has been discontinued; fluticasone; hydralazine; Imdur; metoprolol; warfarin. PHYSICAL EXAMINATION: VITAL SIGNS: Temperature is 96, pulse 83, respirations 24, blood pressure 120/53, satting 93% on 2 liters. CONSTITUTIONAL: She is alert, cooperative. She is in no acute distress. She is lying in bed. HEENT: Pupils equal and reactive. She has nasal cannula oxygen. Oral cavity, pharynx is clear. NECK: Supple. LUNGS: Decreased in the bases. HEART: S1, S2. ABDOMEN: Obese, soft, no guarding and no rebound. PICC line in right upper extremity without signs of any complications. EXTREMITIES: Without clubbing, cyanosis with trace edema. SKIN: Warm to touch. NEUROLOGIC: She answers questions. Affect is appropriate. LABORATORY VALUES: White count 9.3, hemoglobin 11.1, platelets 210, neutrophils 87, lymphs are 5. Creatinine of 1.1, glucose of 209. Chest x-ray without acute process on the . IMPRESSION: 1. Extended-spectrum beta-lactamase urinary tract infection on the ; meropenem started on the . 2. Acute kidney injury. 3. Leukocytosis, better. 4. Atrial fibrillation. 5. Diabetes. 6. Chronic obstructive pulmonary disease exacerbation. 7. Morbid obesity. RECOMMENDATIONS: For now, we will continue with meropenem. We will change to oral soon. Follow up labs and cultures. Monitor respiratory status. Thank you for allowing me to participate in the patient's care. Should you have further questions, please do not hesitate to contact me.. RUTHY SAHU MD DR: LAUREN/janett JOB#: [id number] / [id number] NIDIA
[2020-10-24 11:00] VITALS: BP 123/71
[2020-10-24 14:29] LABS: % BANDS 7 % (0-9); % BASOS 1 % (0-3); % EOS 1 % (0-5); % LYMPHS 4 % (24-48); % MONOS 3 % (0-10); % SEGS 84 % (35-66); PLT ESTIMATE ADEQUATE (ADEQUATE)
[2020-10-24 15:00] VITALS: BP 115/66
[2020-10-24] MEDS: WARFARIN 3 MG TABLET. PO SCH (16:47)
[2020-10-24 19:00] VITALS: BP 144/76
[2020-10-24] MEDS: ATORVASTATIN CALCIUM 20 MG TABLET PO SCH (21:03)
[2020-10-24] MEDS: INSULIN GLARGINE SYRINGE. SQ SCH (21:08)
[2020-10-24 23:00] VITALS: BP 124/63
[2020-10-25 03:00] VITALS: BP 149/80
[2020-10-25] MEDS: MEROPENEM 500 MG in IV NORMAL SALINE 50ML 50 ML IV SCH ×3 (06:04→21:45)
[2020-10-25 07:00] VITALS: BP 147/71
--- NOTE | 2020-10-25 08:05 | PDOC ---
[employer] PROGRESS NOTE Date of Service DOS: DATE: 10/25/20 TIME: 08:05 Chief Complaint Chief Complaint A/P: ESBL UTI - placed PICC, Merrem. Consulted ID. Will need at least 1 additional day IV, then can consider d/c PICC and change to fosfomycin now that she had renal recovery Nausea, vomiting, diarrhea - likely gastroenteritis, resolved ANN MARIE - vasomotor nephropathy - will hydrate, has been improving Morbid obesity - counseled Cough - with shortness of breath. Secondary to acute COPD exacerbation. 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 Also noted shortness of breath, and weakness that began the morning of admission. She denies any abdominal pain, chest pain, palpitations, fever, or cough. EMS reports that the patient had a negative Covid test 10/19/2020 (she also did have COVID19 8 months ago). Patient was recently admitted at this facility for COPD exacerbation on In ED noted in afib on EKG. Labs with WBC 13, Hb 15.2, platelets 213, Na 138, K 3.7, BUN 19, Cr 1.9, glucose 118, BNP 2609 Chest radiograph with cardiomegaly, no other acute finding. Admitted for further care. 10/21: Afebrile overnight. Breathing stable. Has some pain on urination. Very weak no further nausea vomiting or diarrhea asking for food. 10/22: Afebrile. HR in the 30s metoprolol. Culture positive for greater than 100,000 CFU E. coli. Per her daughter she had fallen at her facility. 10/23: Afebrile. CT head neck negative for acute change. Urine culture returned with ESBL. PICC and merrem started 10/24: Afebrile. Feeling improved stronger. Shortness of breath or chest pain. ID consulted for ESBL Afebrile. She is video chatting with her granddaughter this morning. No shortness of breath or chest pain. Still very weak and unsteady. Plan: COVID negative May be able to d/c merrem and change to fosfomycin in next 24 hours Discussed with PT and OT due to her fall at her assisted living facility and readmission weakness has been recommended to go to alf facility and I agree with this plan. Currently not safe to return to her assisted living facility Vitals/I&O Vitals/I&O: Vital Signs Date Time Temp Pulse Resp B/P (MAP) Pulse Ox O2 Delivery O2 Flow Rate FiO2 10/25/20 03:00 97.8 71 16 149/80 (103) 94 Room Air 97.8 10/24/20 15:00 2.0 I & O 10/24/20 10/24/20 10/25/20 15:00 23:00 07:00 Intake Total 60 ml Output Total 200 ml Balance -200 ml 60 ml Physical Exam General: Alert, Oriented X3, Cooperative, mild distress Lungs: Clear Abdomen: Normal bowel sounds, Soft, No tenderness, No hepatosplenomegaly, No masses Extremities: No clubbing, No cyanosis, No edema, Normal pulses, No tenderness/swelling Skin: No rashes, No breakdown, No significant lesion Labs Labs: Laboratory Tests Test 10/24/20 11:13 10/24/20 16:21 10/24/20 20:43 10/25/20 07:38 Glucose (Fingerstick) 200 mg/dL (70-99) 219 mg/dL (70-99) 207 mg/dL (70-99) 176 mg/dL (70-99) Assessment and Plan Assessmemt and Plan Problems Medical Problems: (1) ANN MARIE (acute kidney injury) Status: Acute (2) Nausea, vomiting, and diarrhea Status: Acute Comment Review of Relevant I have reviewed the following items raman (where applicable) has been applied. Justifications for Admission Other Justification SHARRON GRUBBS MD Oct 25, 2020 08:05
[2020-10-25] MEDS ORDERED: FOSF3PAC4 PO (08:19)
[2020-10-25] MEDS: ASPIRIN ENTERIC COATED 81 MG TABLET.DR. PO SCH (08:42)
[2020-10-25] MEDS: buPROPion SR 150 MG TABLET.SA PO SCH (08:42)
[2020-10-25] MEDS: ISOSORBIDE MONONITRATE ER 30 MG TAB.ER.24H PO SCH (08:42)
[2020-10-25] MEDS: METOPROLOL TART IMMED RELEASE 50 MG TABLET. PO SCH ×2 (08:43→21:44)
[2020-10-25] MEDS: INSULIN LISPRO 300 UNITS/3 ML VIAL. SQ SCH ×3 (08:51→18:01)
[2020-10-25 11:00] VITALS: BP 137/64
[2020-10-25 15:00] VITALS: BP 178/98
[2020-10-25] MEDS: FLUTICASONE 50MCG/NASAL SPRAY 16GM BOTTLE. NS SCH (15:18)
[2020-10-25] MEDS: WARFARIN 3 MG TABLET. PO SCH (15:19)
[2020-10-25] MEDS: ACETAMINOPHEN 325 MG TABLET. PO PRN (16:15)
[2020-10-25] MEDS: LACTOBACILLUS RHAMNOSUS GG 1 CAPSULE. PO SCH ×2 (16:15→21:43)
[2020-10-25 19:00] VITALS: BP 127/54
[2020-10-25] MEDS: ATORVASTATIN CALCIUM 20 MG TABLET PO SCH (21:44)
[2020-10-25] MEDS: INSULIN GLARGINE SYRINGE. SQ SCH (21:52)
[2020-10-25 23:00] VITALS: BP 134/59
[2020-10-26 03:00] VITALS: BP 142/63
[2020-10-26] MEDS: MEROPENEM 500 MG in IV NORMAL SALINE 50ML 50 ML IV SCH (05:49)
[2020-10-26 06:48] LABS: BASO # 0.1 x10^3/uL (0.0-0.2); BASO % 1 % (0-3); EOS # 0.1 x10^3/uL (0.0-0.7); EOS % 2 % (0-3); HEMATOCRIT 33.8 % (36.0-47.0); HEMOGLOBIN 11.4 g/dL (12.0-15.5); LYMPH # 0.6 x10^3/uL (1.0-4.8); LYMPH % 9 % (24-48); MEAN CORPUSCULAR HEMOGLOBIN 28 pg (25-35); MEAN CORPUSCULAR HGB CONC 34 g/dL (31-37); MEAN CORPUSCULAR VOLUME 82 fL (79-100); MONO # 0.4 x10^3/uL (0.0-1.1); MONO % 7 % (0-9); NEUT # 5.1 x10^3/uL (1.8-7.7); NEUT % 81 % (31-73); PLATELET COUNT 282 x10^3/uL (140-400); RED BLOOD COUNT 4.11 x10^6/uL (3.50-5.40); RED CELL DISTRIBUTION WIDTH 15.7 % (11.5-14.5); WHITE BLOOD COUNT 6.3 x10^3/uL (4.0-11.0)
[2020-10-26 06:52] LABS: CALCIUM 8.4 mg/dL (8.5-10.1); CREATININE 0.9 mg/dL (0.6-1.0); GFR 61.2; POTASSIUM 3.6 mmol/L (3.5-5.1)
[2020-10-26 07:00] VITALS: BP 175/78
--- NOTE | 2020-10-26 08:17 | PDOC ---
PROGRESS NOTES Date of Service: DATE: 10/26/20 TIME: 08:15 Chief Complaint Chief Complaint discharge dx ESBL UTI - placed PICC, Merrem d/c . Consulted ID. Will need at least 1 additional day IV, then can consider d/c PICC and change to fosfomycin now that she had renal recovery Nausea, vomiting, diarrhea - likely gastroenteritis, resolved ANN MARIE - vasomotor nephropathy - will hydrate, has been improving Morbid obesity - counseled Cough - with shortness of breath. Secondary to acute COPD exacerbation. 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 Also noted shortness of breath, and weakness that began the morning of admission. She denies any abdominal pain, chest pain, palpitations, fever, or cough. EMS reports that the patient had a negative Covid test 10/19/2020 (she also did have COVID19 8 months ago). Patient was recently admitted at this facility for COPD exacerbation on Romulo davin In ED noted in afib on EKG. Labs with WBC 13, Hb 15.2, platelets 213, Na 138, K 3.7, BUN 19, Cr 1.9, glucose 118, BNP 2609 Chest radiograph with cardiomegaly, no other acute finding. C4-C5, severe right and moderate left foraminal and mild central canals of cysts at C5-C6, and mild central canal stenosis at C6-C7. Admitted for further care. 10/21: Afebrile overnight. Breathing stable. Has some pain on urination. Very weak no further nausea vomiting or diarrhea asking for food. 10/22: Afebrile. HR in the 30s metoprolol. Culture positive for greater than 100,000 CFU E. coli. Per her daughter she had fallen at her facility. 10/23: Afebrile. CT head neck negative for acute change. Urine culture returned with ESBL. PICC and merrem started 10/24: Afebrile. Feeling improved stronger. Shortness of breath or chest pain. ID consulted for ESBL Afebrile. She is video chatting with her granddaughter this morning. No shortness of breath or chest pain. Still very weak and unsteady. Plan: COVID negative May be able to d/c merrem and change to fosfomycin in next 24 hours Discussed with PT and OT due to her fall at her assisted living facility and readmission weakness has been recommended to go to senior care facility and I agree with this plan. Currently not safe to return to her assisted living facility Vitals Vitals Vital Signs Date Time Temp Pulse Resp B/P (MAP) Pulse Ox O2 Delivery O2 Flow Rate FiO2 10/26/20 07:00 97.6 88 18 175/78 (110) 92 Room Air 97.6 Physical Exam General: Alert, Oriented X3, Cooperative, mild distress Lungs: Clear Abdomen: Normal bowel sounds, Soft, No tenderness, No hepatosplenomegaly, No masses Extremities: No clubbing, No cyanosis, No edema, Normal pulses, No tenderness/swelling Skin: No rashes, No breakdown, No significant lesion Labs LABS DPOA REVIEW 18 MIN to patient portal What Is a Power of School Age Program Associate? A power of county attorney (POA) is a legal document giving one person (the agent or fbupyxny-az-fiam) the power to act for another person (the principal). The agent can have broad legal authority or limited authority to make legal decisions about the principal's property, finances or medical care. The power of county attorney is frequently used in the event of a principal's illness or disability, or when the principal can't be present to sign necessary legal documents for financial transactions. A power of county attorney can end for a number of reasons, such as when the principal dies, the principal revokes it, a court invalidates it, the principal divorces their spouse, who happens to be the agent, or the agent can no longer carry out the outlined responsibilities. Conventional POAs lapse when the creator becomes incapacitated, but a durable POA remains in force to enable the agent to manage the creators affairs, and a springing POA comes into effect only if and when the creator of the POA becomes incapacitated. A medical or healthcare POA enables an agent to make medical decisions on behalf of an incapacitated person. [employer] Takeaways A power of county attorney (POA) is a legal document giving one person, the agent or jzkmzpck-vo-tmdw the power to act for another person, the principal. The agent can have broad legal authority or limited authority to make decisions about the principal's property, finances or medical care. The power of county attorney is often used when a principal becomes ill or disabled, or when they can't be present to sign necessary legal documents for financial transactions. Understanding Power of School Age Program Associate A power of county attorney should be considered when planning for long-term care. There are different types of POAs that fall under either a general power of county attorney or limited power of county attorney. A general power of county attorney acts on behalf of the principal in any and all matters, as allowed by the state. The agent under a general POA agreement may be authorized to take care of issues such as handling bank accounts, signing checks, selling property and assets like stocks, f A limited power of county attorney gives the agent the power to act on behalf of the principal in specific matters or events. For example, the limited POA may explicitly state that the agent is only allowed to manage the principal's re tirement accounts. A limited POA may also be limited to a specific period of time (e.g., if the principal will be out of the country for, say, two years). Most gonzáles of county attorney documents allow an agent to represent the principal in all property and financial matters as long as the principals mental state of mind is good. If a situation occurs where the principal becomes incapable of making decisions for him or herself, the POA agreement would automatically end. However, someone who wants the POA to remain in effect after the persons health deteriorates would need to sign a durable power of county attorney (DPOA). What is an advance directive? An advance directive is a legal document that says how you want to be cared for if you are unable to make decisions. You can include what medical treatments you would want and who you would trust to make decisions for you. An advance directive can also include other legal documents. A living will is a list of treatment preferences. It can be used to indicate whether you would want cardiopulmonary resuscitation (CPR), tube feedings, a breathing machine, or certain medicines, like antibiotics. The durable power of county attorney for health care document identifies the person you would want to make medical decisions for you. This person is also called a proxy. Your proxy should be familiar with your values and wishes. How do I get started? You can get advance directive documents for your state from your doctor's office or from http://www.caringinfo.org. Review the forms, and ask your doctor if you have any questions. Pick a person to be your proxy, and talk it over with that person. Signed PATIENT: MICHAELA COOPER SACCOUNT: [id number] : 1945 LOCATION: [address] [place] [address] AGE: 75 SEX: F EXAM STATUS: ADM IN ORD. PHYSICIAN: SHARRON GRUBBS MD REASON: Fall at SNF prior to admit, still with RODAS, neck pain PROCEDURE: CT HEAD AND CERVICAL SPINE WO EXAM: Head and cervical spine CT without contrast. HISTORY: Fall. TECHNIQUE: Computed tomographic images of the head and cervical spine were obtained without contrast. *One or more of the following individualized dose reduction techniques were utilized for this examination: 1. Automated exposure control. 2. Adjustment of the mA and/or kV according to patient size. 3. Use of iterative reconstruction technique. COMPARISON: 02/29/2020. FINDINGS: Head: There is no acute hemorrhage. There is no mass effect or midline shift. There is no hydrocephalus. There is cerebral volume loss with increased bifrontal extra-axial space. There is encephalomalacia due to chronic infarction involving the right cerebellum. There is also a suspected small chronic infarct within the left basal ganglia. There are bilateral cerebral white matter changes, likely due to chronic small vessel disease. There is mild. Sinus because of thickening. The orbits and mastoid air cells are unremarkable. No suspicious calvarial lesion is seen Cervical spine: There is cervical kyphosis and mild multilevel degenerative listhesis. There is multilevel endplate remodeling and osteophytosis. There is disc space narrowing at C5-C6. There is multilevel facet and uncovertebral arthropathy. There is no fracture or suspicious osseous lesion. The combination of degenerative changes results in moderate right and mild left foraminal stenosis at C3-C4, moderate left greater than right foraminal stenosis at C4-C5, severe right and moderate left foraminal and mild central canals of cysts at C5- C6, and mild central canal stenosis at C6-C7. IMPRESSION: 1. No acute intracranial finding or evidence acute cervical spine trauma. 2. Bilateral cerebral white matter changes, likely due to chronic small vessel disease. 3. Chronic infarct within the right cerebellum and likely the left basal ganglia. 4. Multilevel degenerative change involving the cervical spine, described above. Electronically signed by: Jenn Vinson MD (10/22/2020 2:38 PM) [id number] DICTATED and SIGNED BY: JENN VINSON MD DATE: 10/22/20 [id number] Laboratory Tests Test 10/25/20 11:48 10/25/20 16:55 10/25/20 20:38 10/26/20 06:20 Glucose (Fingerstick) 267 mg/dL (70-99) 173 mg/dL (70-99) 230 mg/dL (70-99) White Blood Count 6.3 x10^3/uL (4.0-11.0) Red Blood Count 4.11 x10^6/uL (3.50-5.40) Hemoglobin 11.4 g/dL (12.0-15.5) Hematocrit 33.8 % (36.0-47.0) Mean Corpuscular Volume 82 fL (79-100) Mean Corpuscular Hemoglobin 28 pg (25-35) Mean Corpuscular Hemoglobin Concent 34 g/dL (31-37) Red Cell Distribution Width 15.7 % (11.5-14.5) Platelet Count 282 x10^3/uL (140-400) Neutrophils (%) (Auto) 81 % (31-73) Lymphocytes (%) (Auto) 9 % (24-48) Monocytes (%) (Auto) 7 % (0-9) Eosinophils (%) (Auto) 2 % (0-3) Basophils (%) (Auto) 1 % (0-3) Neutrophils # (Auto) 5.1 x10^3/uL (1.8-7.7) Lymphocytes # (Auto) 0.6 x10^3/uL (1.0-4.8) Monocytes # (Auto) 0.4 x10^3/uL (0.0-1.1) Eosinophils # (Auto) 0.1 x10^3/uL (0.0-0.7) Basophils # (Auto) 0.1 x10^3/uL (0.0-0.2) Sodium Level 140 mmol/L (136-145) Potassium Level 3.6 mmol/L (3.5-5.1) Chloride Level 104 mmol/L (98-107) Carbon Dioxide Level 29 mmol/L (21-32) Anion Gap 7 (6-14) Blood Urea Nitrogen 13 mg/dL (7-20) Creatinine 0.9 mg/dL (0.6-1.0) Estimated GFR (Cockcroft-Gault) 61.2 Glucose Level 191 mg/dL (70-99) Calcium Level 8.4 mg/dL (8.5-10.1) Test 10/26/20 07:30 Glucose (Fingerstick) 183 mg/dL (70-99) Assessment and Plan Assessmemt and Plan Problems Medical Problems: (1) ANN MARIE (acute kidney injury) Status: Acute (2) Nausea, vomiting, and diarrhea Status: Acute Comment Review of Relevant I have reviewed the following items raman (where applicable) has been applied. Labs Laboratory Tests Test 10/24/20 11:13 10/24/20 16:21 10/24/20 20:43 10/25/20 07:38 Glucose (Fingerstick) 200 mg/dL (70-99) 219 mg/dL (70-99) 207 mg/dL (70-99) 176 mg/dL (70-99) Test 10/25/20 11:48 10/25/20 16:55 10/25/20 20:38 10/26/20 06:20 Glucose (Fingerstick) 267 mg/dL (70-99) 173 mg/dL (70-99) 230 mg/dL (70-99) White Blood Count 6.3 x10^3/uL (4.0-11.0) Red Blood Count 4.11 x10^6/uL (3.50-5.40) Hemoglobin 11.4 g/dL (12.0-15.5) Hematocrit 33.8 % (36.0-47.0) Mean Corpuscular Volume 82 fL (79-100) Mean Corpuscular Hemoglobin 28 pg (25-35) Mean Corpuscular Hemoglobin Concent 34 g/dL (31-37) Red Cell Distribution Width 15.7 % (11.5-14.5) Platelet Count 282 x10^3/uL (140-400) Neutrophils (%) (Auto) 81 % (31-73) Lymphocytes (%) (Auto) 9 % (24-48) Monocytes (%) (Auto) 7 % (0-9) Eosinophils (%) (Auto) 2 % (0-3) Basophils (%) (Auto) 1 % (0-3) Neutrophils # (Auto) 5.1 x10^3/uL (1.8-7.7) Lymphocytes # (Auto) 0.6 x10^3/uL (1.0-4.8) Monocytes # (Auto) 0.4 x10^3/uL (0.0-1.1) Eosinophils # (Auto) 0.1 x10^3/uL (0.0-0.7) Basophils # (Auto) 0.1 x10^3/uL (0.0-0.2) Sodium Level 140 mmol/L (136-145) Potassium Level 3.6 mmol/L (3.5-5.1) Chloride Level 104 mmol/L (98-107) Carbon Dioxide Level 29 mmol/L (21-32) Anion Gap 7 (6-14) Blood Urea Nitrogen 13 mg/dL (7-20) Creatinine 0.9 mg/dL (0.6-1.0) Estimated GFR (Cockcroft-Gault) 61.2 Glucose Level 191 mg/dL (70-99) Calcium Level 8.4 mg/dL (8.5-10.1) Test 10/26/20 07:30 Glucose (Fingerstick) 183 mg/dL (70-99) Laboratory Tests Test 10/25/20 11:48 10/25/20 16:55 10/25/20 20:38 10/26/20 06:20 Glucose (Fingerstick) 267 mg/dL (70-99) 173 mg/dL (70-99) 230 mg/dL (70-99) White Blood Count 6.3 x10^3/uL (4.0-11.0) Red Blood Count 4.11 x10^6/uL (3.50-5.40) Hemoglobin 11.4 g/dL (12.0-15.5) Hematocrit 33.8 % (36.0-47.0) Mean Corpuscular Volume 82 fL (79-100) Mean Corpuscular Hemoglobin 28 pg (25-35) Mean Corpuscular Hemoglobin Concent 34 g/dL (31-37) Red Cell Distribution Width 15.7 % (11.5-14.5) Platelet Count 282 x10^3/uL (140-400) Neutrophils (%) (Auto) 81 % (31-73) Lymphocytes (%) (Auto) 9 % (24-48) Monocytes (%) (Auto) 7 % (0-9) Eosinophils (%) (Auto) 2 % (0-3) Basophils (%) (Auto) 1 % (0-3) Neutrophils # (Auto) 5.1 x10^3/uL (1.8-7.7) Lymphocytes # (Auto) 0.6 x10^3/uL (1.0-4.8) Monocytes # (Auto) 0.4 x10^3/uL (0.0-1.1) Eosinophils # (Auto) 0.1 x10^3/uL (0.0-0.7) Basophils # (Auto) 0.1 x10^3/uL (0.0-0.2) Sodium Level 140 mmol/L (136-145) Potassium Level 3.6 mmol/L (3.5-5.1) Chloride Level 104 mmol/L (98-107) Carbon Dioxide Level 29 mmol/L (21-32) Anion Gap 7 (6-14) Blood Urea Nitrogen 13 mg/dL (7-20) Creatinine 0.9 mg/dL (0.6-1.0) Estimated GFR (Cockcroft-Gault) 61.2 Glucose Level 191 mg/dL (70-99) Calcium Level 8.4 mg/dL (8.5-10.1) Test 10/26/20 07:30 Glucose (Fingerstick) 183 mg/dL (70-99) Microbiology 10/20/20 Urine Culture - Final, Complete 10/20/20 Antimicrobic Susceptibility - Final, Complete Medications Current Medications Sodium Chloride 1,000 ml @ 125 mls/hr 1X ONCE IV Last administered on 1at 16:03; Start 10/20/20 at 15:30; Stop 10/20/20 at 23:29; Status DC Ondansetron HCl (Zofran) 4 mg PRN Q4HRS PRN IV NAUSEA/VOMITING 1ST CHOICE Last administered on 10/22/20at 10:15; Start 10/20/20 at 22:00 Acetaminophen (Tylenol) 650 mg PRN Q4HRS PRN PO TEMP OVER 100.4F OR MILD PAIN Last administered on 10/25/20at 16:15; Start 10/20/20 at 22:00 Amlodipine Besylate (Norvasc) 10 mg DAILY PO Last administered on 10/25/20at 08:42; Start 10/21/20 at 09:00 Aspirin (Ecotrin) 81 mg DAILY PO Last administered on 10/25/20at 08:42; Start 10/21/20 at 09:00 Atorvastatin Calcium (Lipitor) 20 mg QHS PO Last administered on 10/25/20at 21:44; Start 10/20/20 at 23:00 Bupropion HCl (Wellbutrin Sr) 150 mg DAILY PO Last administered on 10/25/20at 08:42; Start 10/21/20 at 09:00 Fluticasone Propionate (Flonase) 2 spray DAILY NS Last administered on 10/25/20at 15:18; Start 10/21/20 at 09:00 Hydralazine HCl (Apresoline) 100 mg TID PO Last administered on 10/25/20at 21:44; Start 10/20/20 at 23:00 Isosorbide Mononitrate (Imdur) 30 mg DAILY PO Last administered on 10/25/20at 08:42; Start 10/21/20 at 09:00 Metoprolol Tartrate (Lopressor) 50 mg BID PO Last administered on 10/25/20at 21:44; Start 10/20/20 at 23:00 Warfarin Sodium (Coumadin) 6 mg DAILY16 PO Last administered on 10/25/20at 15:19; Start 10/21/20 at 16:00 Ceftriaxone Sodium (Rocephin) 1 gm Q24H IVP Last administered on 10/22/20at 08:13; Start 10/21/20 at 10:00; Stop 10/22/20 at 18:00; Status DC Sodium Chloride 1,000 ml @ 125 mls/hr 1X ONCE IV Last administered on 10/21/20at 11:11; Start 10/21/20 at 11:15; Stop 10/21/20 at 19:14; Status DC Warfarin Sodium (Coumadin Per Physician) 1 each PRN DAILY PRN MC SEE COMMENTS; Start 10/21/20 at 11:15 Tramadol HCl (Ultram) 50 mg PRN Q6HRS PRN PO MILD TO MODERATE PAIN Last administered on 10/22/20at 08:12; Start 10/21/20 at 15:15 Insulin Human Lispro (HumaLOG) 0-7 UNITS TIDWMEALS SQ Last administered on 10/25/20at 18:01; Start 10/22/20 at 09:00 Dextrose (Dextrose 50%-Water Syringe) 12.5 gm PRN Q15MIN PRN IV SEE COMMENTS; Start 10/22/20 at 09:00 Atropine Sulfate (ATROPINE 0.5mg SYRINGE) 0.5 mg 1X ONCE IV ; Start 10/22/20 at 10:15; Stop 10/22/20 at 10:56; Status DC Potassium Bicarbonate (Potassium Effervescent Tablet) 40 meq 1X ONCE PO Last administered on 10/22/20at 10:57; Start 10/22/20 at 10:15; Stop 10/22/20 at 10:16; Status DC Cefdinir (Omnicef) 300 mg BID PO Last administered on 10/23/20at 08:52; Start 10/22/20 at 21:00; Stop 10/23/20 at 11:25; Status DC Meropenem 500 mg/ Sodium Chloride 50 ml @ 100 mls/hr Q8HRS IV Last administered on 10/26/20at 05:49; Start 10/23/20 at 14:00 Lidocaine HCl (Buffered Lidocaine 1%) 3 ml STK-MED ONCE .ROUTE ; Start 10/23/20 at 14:12; Stop 10/23/20 at 14:12; Status DC Lidocaine HCl (Buffered Lidocaine 1%) 6 ml 1X ONCE INJ ; Start 10/23/20 at 14:15; Stop 10/23/20 at 14:16; Status DC Insulin Glargine (Lantus Syringe) 8 unit QHS SQ Last administered on 10/25/20at 21:52; Start 10/23/20 at 21:00 Lactobacillus Rhamnosus (Culturelle) 1 cap BID PO Last administered on 10/25/20at 21:43; Start 10/25/20 at 09:00 Active Scripts Active Fosfomycin Tromethamine 3 Gm Packet 3 Gm PO 1X 1 Days Nystop (Nystatin) 60 Gm Powder 1 Bernardo TP BID 30 Days Latanoprost 2.5 Ml Drops 1 Drop OU QHS 30 Days Amlodipine Besylate 10 Mg Tablet 10 Mg PO DAILY 30 Days Isosorbide Mononitrate Er (Isosorbide Mononitrate) 30 Mg Tab.er.24h 30 Mg PO DAILY 30 Days Metoprolol Tartrate 50 Mg Tablet 50 Mg PO BID 30 Days Hydralazine Hcl 25 Mg Tablet 4 Tab PO TID 30 Days Lisinopril 10 Mg Tablet 40 Mg PO DAILY 30 Days Atorvastatin Calcium 20 Mg Tablet 20 Mg PO QHS 30 Days Tylenol (Acetaminophen) 325 Mg Tablet 650 Mg PO PRN Q6HRS PRN 30 Days Coumadin (Warfarin Sodium) 3 Mg Tablet 6 Mg PO DAILY16 30 Days [Albuterol Sulfate] 2.5 MG/3 ML Nebu 2.5 Mg NEB PRN Q4HRS PRN Reported Ventolin Hfa Inhaler (Albuterol Sulfate) 18 Gm Hfa.aer.ad 2 Puff INH Q4HRS Combivent Respimat Inhal (Ipratropium/Albuterol Sulfate) 4 Gm Aer.w.adap 2 Inh IH QID Loratadine 10 Mg Tablet 10 Mg PO DAILY Loperamide (Loperamide Hcl) 2 Mg Tablet 2 Mg PO PRN Q4HRS PRN Wellbutrin Sr (Bupropion Hcl) 150 Mg Tablet.er 150 Mg PO DAILY Novolog (Insulin Aspart) 100 Unit/1 Ml Cartridge 15 Unit SQ TID Aspirin Ec (Aspirin) 81 Mg Tablet.dr 1 Tab PO DAILY Fluticasone Propionate Nasal [place] (Fluticasone Propionate) 16 Gm [place].susp 2 [place] NS DAILY LAST DOSE GIVEN: DATE: 10-13-15 TIME: 9 am NEXT DOSE DUE: DATE: 10-14-15 TIME: 9 am Vitamin D2 (Ergocalciferol (Vitamin D2)) 50,000 Unit Capsule 1 Cap PO QSA Vitals/I & O Vital Sign - Last 24 Hours 10/25/20 10/25/20 10/25/20 10/25/20 08:42 08:42 08:43 08:43 Pulse 81 81 81 81 B/P (MAP) 147/71 147/71 147/71 147/71 10/25/20 10/25/20 10/25/20 10/25/20 11:00 15:00 15:18 19:00 Temp 98.1 97.7 98.3 98.1 97.7 98.3 Pulse 75 77 75 73 Resp 16 22 18 B/P (MAP) 137/64 (88) 178/98 (124) 137/64 127/54 (78) Pulse Ox 91 91 94 O2 Delivery Room Air Room Air Room Air 10/25/20 10/25/20 10/25/20 10/25/20 20:28 21:44 21:44 23:00 Temp 97.4 97.4 Pulse 73 73 70 Resp 20 B/P (MAP) 127/54 127/54 134/59 (84) Pulse Ox 93 O2 Delivery Room Air Room Air 10/26/20 10/26/20 03:00 07:00 Temp 97.3 97.6 97.3 97.6 Pulse 75 88 Resp 18 18 B/P (MAP) 142/63 (89) 175/78 (110) Pulse Ox 92 92 O2 Delivery Room Air Room Air Intake and Output 10/25/20 10/25/20 10/26/20 15:00 23:00 07:00 Intake Total 240 ml Output Total 250 ml Balance 240 ml -250 ml Justicifation of Admission Dx: Justifications for Admission: Justification of Admission Dx: Yes BRIGIDA SALAZAR MD Oct 26, 2020 08:17
[2020-10-26] MEDS: buPROPion SR 150 MG TABLET.SA PO SCH (08:34)
[2020-10-26] MEDS: ASPIRIN ENTERIC COATED 81 MG TABLET.DR. PO SCH (08:34)
[2020-10-26] MEDS: LACTOBACILLUS RHAMNOSUS GG 1 CAPSULE. PO SCH (08:34)
[2020-10-26] MEDS: ISOSORBIDE MONONITRATE ER 30 MG TAB.ER.24H PO SCH (08:35)
[2020-10-26] MEDS: METOPROLOL TART IMMED RELEASE 50 MG TABLET. PO SCH (08:35)
[2020-10-26] MEDS: FLUTICASONE 50MCG/NASAL SPRAY 16GM BOTTLE. NS SCH (08:36)
[2020-10-26] MEDS: INSULIN LISPRO 300 UNITS/3 ML VIAL. SQ SCH ×2 (08:41→12:00)
--- NOTE | 2020-10-26 08:45 | PDOC ---
Infectious Disease Note Subjective: Subjective Patient feels very tired and sleepy this morning Denies fever, nausea, vomiting, diarrhea, symptom Vital Signs: Vital Signs Vital Signs Date Time Temp Pulse Resp B/P (MAP) Pulse Ox O2 Delivery O2 Flow Rate FiO2 10/26/20 07:00 97.6 88 18 175/78 (110) 92 Room Air 97.6 Medications: Inpatient Meds: Current Medications Medications (Trade) Dose Ordered Sig/Shikha Start Time Stop Time Status Last Admin Dose Admin Acetaminophen (Tylenol) 650 mg PRN Q4HRS PRN 10/20/20 22:00 10/25/20 16:15 650 MG Amlodipine Besylate (Norvasc) 10 mg DAILY 10/21/20 09:00 10/25/20 08:42 10 MG Aspirin (Ecotrin) 81 mg DAILY 10/21/20 09:00 10/25/20 08:42 81 MG Atorvastatin Calcium (Lipitor) 20 mg QHS 10/20/20 23:00 10/25/20 21:44 20 MG Atropine Sulfate (ATROPINE 0.5mg SYRINGE) 0.5 mg 1X ONCE 10/22/20 10:15 10/22/20 10:56 DC Bupropion HCl (Wellbutrin Sr) 150 mg DAILY 10/21/20 09:00 10/25/20 08:42 150 MG Cefdinir (Omnicef) 300 mg BID 10/22/20 21:00 10/23/20 11:25 DC 10/23/20 08:52 300 MG Ceftriaxone Sodium (Rocephin) 1 gm Q24H 10/21/20 10:00 10/22/20 18:00 DC 10/22/20 08:13 1 GM Dextrose (Dextrose 50%-Water Syringe) 12.5 gm PRN Q15MIN PRN 10/22/20 09:00 Fluticasone Propionate (Flonase) 2 spray DAILY 10/21/20 09:00 10/25/20 15:18 2 SPRAY Hydralazine HCl (Apresoline) 100 mg TID 10/20/20 23:00 10/25/20 21:44 100 MG Insulin Glargine (Lantus Syringe) 8 unit QHS 10/23/20 21:00 10/25/20 21:52 8 UNIT Insulin Human Lispro (HumaLOG) 0-7 UNITS TIDWMEALS 10/22/20 09:00 10/25/20 18:01 3 UNITS Isosorbide Mononitrate (Imdur) 30 mg DAILY 10/21/20 09:00 10/25/20 08:42 30 MG Lactobacillus Rhamnosus (Culturelle) 1 cap BID 10/25/20 09:00 10/25/20 21:43 1 CAP Lidocaine HCl (Buffered Lidocaine 1%) 6 ml 1X ONCE 10/23/20 14:15 10/23/20 14:16 DC Meropenem 500 mg/ Sodium Chloride 50 ml @ 100 mls/hr Q8HRS 10/23/20 14:00 10/26/20 05:49 100 MLS/HR Metoprolol Tartrate (Lopressor) 50 mg BID 10/20/20 23:00 10/25/20 21:44 50 MG Ondansetron HCl (Zofran) 4 mg PRN Q4HRS PRN 10/20/20 22:00 10/22/20 10:15 4 MG Potassium Bicarbonate (Potassium Effervescent Tablet) 40 meq 1X ONCE 10/22/20 10:15 10/22/20 10:16 DC 10/22/20 10:57 40 MEQ Sodium Chloride 1,000 ml @ 125 mls/hr 1X ONCE 10/21/20 11:15 10/21/20 19:14 DC 10/21/20 11:11 125 MLS/HR Tramadol HCl (Ultram) 50 mg PRN Q6HRS PRN 10/21/20 15:15 10/22/20 08:12 50 MG Warfarin Sodium (Coumadin Per Physician) 1 each PRN DAILY PRN 10/21/20 11:15 Warfarin Sodium (Coumadin) 6 mg DAILY16 10/21/20 16:00 10/25/20 15:19 6 MG Labs: Lab Laboratory Tests Test 10/25/20 11:48 10/25/20 16:55 10/25/20 20:38 10/26/20 06:20 Glucose (Fingerstick) 267 mg/dL (70-99) 173 mg/dL (70-99) 230 mg/dL (70-99) White Blood Count 6.3 x10^3/uL (4.0-11.0) Red Blood Count 4.11 x10^6/uL (3.50-5.40) Hemoglobin 11.4 g/dL (12.0-15.5) Hematocrit 33.8 % (36.0-47.0) Mean Corpuscular Volume 82 fL (79-100) Mean Corpuscular Hemoglobin 28 pg (25-35) Mean Corpuscular Hemoglobin Concent 34 g/dL (31-37) Red Cell Distribution Width 15.7 % (11.5-14.5) Platelet Count 282 x10^3/uL (140-400) Neutrophils (%) (Auto) 81 % (31-73) Lymphocytes (%) (Auto) 9 % (24-48) Monocytes (%) (Auto) 7 % (0-9) Eosinophils (%) (Auto) 2 % (0-3) Basophils (%) (Auto) 1 % (0-3) Neutrophils # (Auto) 5.1 x10^3/uL (1.8-7.7) Lymphocytes # (Auto) 0.6 x10^3/uL (1.0-4.8) Monocytes # (Auto) 0.4 x10^3/uL (0.0-1.1) Eosinophils # (Auto) 0.1 x10^3/uL (0.0-0.7) Basophils # (Auto) 0.1 x10^3/uL (0.0-0.2) Sodium Level 140 mmol/L (136-145) Potassium Level 3.6 mmol/L (3.5-5.1) Chloride Level 104 mmol/L (98-107) Carbon Dioxide Level 29 mmol/L (21-32) Anion Gap 7 (6-14) Blood Urea Nitrogen 13 mg/dL (7-20) Creatinine 0.9 mg/dL (0.6-1.0) Estimated GFR (Cockcroft-Gault) 61.2 Glucose Level 191 mg/dL (70-99) Calcium Level 8.4 mg/dL (8.5-10.1) Test 10/26/20 07:30 Glucose (Fingerstick) 183 mg/dL (70-99) Objective: Assessment: ESBL UTI 10/20 - Meropenem 10/23 ANN MARIE resolved Leukocytosis - better Afib DM COPD exacerbation Morbid Obesity Plan: Plan of Care Discontinue meropenem Fosfomycin Monitor labs and cults Continue supportive care LAURA CARPENTER MD Oct 26, 2020 08:45
[2020-10-26] MEDS ORDERED: FOSFOMYCIN TROMETHAMINE 3 GM PACKET PO ONE (10:00)
[2020-10-26 11:00] VITALS: BP 163/87
--- NOTE | 2020-10-26 11:20 | NUR ---
SW following for discharge planning. Spoke with RN and reviewed chart. COVID result came back negative. Spoke with pt's daughter who declined SN anywhere but [facility]. SW requested SNU orders as they do have a SN unit. Pt on po abx and script in packet of clinicals ready to be sent with pt. Spoke with facility nurse. YANELI arranged for noon transportation home via [facility]. Pt on room air. RN to call report. No further SW needs this time. Addendum: 10/26/20 at 1225 by ALIDA GROVES Spoke with Lucero from the facility. Discharge orders received. Transportation time moved to 1300. Addendum: 10/26/20 at 1644 by ALIDA GROVES This SW was under the impression from conversation earlier with [facility] that they had a SNU, but it is actually only [facility]. YANELI spoke with daughter Jeannie ([phone]) again today who stated her preference still remains [facility] with HH as she does not want to place pt in a SNU. Jeannie stated she will follow up with [facility] and if pt does not rehab well with that she will consider moving pt to a higher level of care, but that she wants to give pt a chance to remain a [facility].
--- NOTE | 2020-10-26 11:43 | PDOC3 ---
Discharge Summary Date of Admission: Oct 20, 2020 Date of Discharge: Oct 26, 2020 Follow-Up: 1-2 days Admitting Diagnosis comment: Chief Complaint Chief Complaint discharge dx ESBL UTI - placed PICC, Merrem d/c . Consulted ID. Will need at least 1 additional day IV, then can consider d/c PICC and change to fosfomycin now that she had renal recovery Nausea, vomiting, diarrhea - likely gastroenteritis, resolved ANN MARIE - vasomotor nephropathy - will hydrate, has been improving Morbid obesity - counseled Cough - with shortness of breath. Secondary to acute COPD exacerbation. 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 Also noted shortness of breath, and weakness that began the morning of admission. She denies any abdominal pain, chest pain, palpitations, fever, or cough. EMS reports that the patient had a negative Covid test 10/19/2020 (she also did have COVID19 8 months ago). Patient was recently admitted at this facility for COPD exacerbation on Romulo davin In ED noted in afib on EKG. Labs with WBC 13, Hb 15.2, platelets 213, Na 138, K 3.7, BUN 19, Cr 1.9, glucose 118, BNP 2609 Chest radiograph with cardiomegaly, no other acute finding. C4-C5, severe right and moderate left foraminal and mild central canals of cysts at C5-C6, and mild central canal stenosis at C6-C7. Admitted for further care. 10/21: Afebrile overnight. Breathing stable. Has some pain on urination. Very weak no further nausea vomiting or diarrhea asking for food. 10/22: Afebrile. HR in the 30s metoprolol. Culture positive for greater than 100,000 CFU E. coli. Per her daughter she had fallen at her facility. 10/23: Afebrile. CT head neck negative for acute change. Urine culture returned with ESBL. PICC and merrem started 10/24: Afebrile. Feeling improved stronger. Shortness of breath or chest pain. ID consulted for ESBL Afebrile. She is video chatting with her granddaughter this morning. No shortness of breath or chest pain. Still very weak and unsteady. Plan: RENETTA negative May be able to d/c merrem and change to fosfomycin in next 24 hours Discussed with PT and OT due to her fall at her assisted living facility and readmission weakness has been recommended to go to senior living facility and I agree with this plan. Currently not safe to return to her assisted living facility Vitals Vitals Vital Signs Date Time Temp Pulse Resp B/P (MAP) Pulse Ox O2 Delivery O2 Flow Rate FiO2 10/26/20 07:00 97.6 88 18 175/78 (110) 92 Room Air 97.6 Physical Exam General: Alert, Oriented X3, Cooperative, mild distress Lungs: Clear Abdomen: Normal bowel sounds, Soft, No tenderness, No hepatosplenomegaly, No masses Extremities: No clubbing, No cyanosis, No edema, Normal pulses, No tenderness/swelling Skin: No rashes, No breakdown, No significant lesion Labs LABS DPOA REVIEW 18 MIN to patient portal What Is a Power of Argon Tester? A power of trial attorney (POA) is a legal document giving one person (the agent or uydfkcdh-ru-dloh) the power to act for another person (the principal). The agent can have broad legal authority or limited authority to make legal decisions about the principal's property, finances or medical care. The power of trial attorney is frequently used in the event of a principal's illness or disability, or when the principal can't be present to sign necessary legal documents for financial transactions. A power of trial attorney can end for a number of reasons, such as when the principal dies, the principal revokes it, a court invalidates it, the principal divorces their spouse, who happens to be the agent, or the agent can no longer carry out the outlined responsibilities. Conventional POAs lapse when the creator becomes incapacitated, but a durable POA remains in force to enable the agent to manage the creators affairs, and a springing POA comes into effect only if and when the creator of the POA becomes incapacitated. A medical or healthcare POA enables an agent to make med ical decisions on behalf of an incapacitated person. Guardado Takeaways A power of trial attorney (POA) is a legal document giving one person, the agent or gdsuzhbn-ex-vltb the power to act for another person, the principal. The agent can have broad legal authority or limited authority to make decisions about the principal's property, finances or medical care. The power of trial attorney is often used when a principal becomes ill or disabled, or when they can't be present to sign necessary legal documents for financial transactions. Understanding Power of Argon Tester A power of trial attorney should be considered when planning for long-term care. There are different types of POAs that fall under either a general power of trial attorney or limited power of trial attorney. A general power of trial attorney acts on behalf of the principal in any and all matters, as allowed by the state. The agent under a general POA agreement may be authorized to take care of issues such as handling bank accounts, signing checks, selling property and assets like stocks, f A limited power of trial attorney gives the agent the power to act on behalf of the principal in specific matters or events. For example, the limited POA may explicitly state that the agent is only allowed to manage the principal's retire ment accounts. A limited POA may also be limited to a specific period of time (e.g., if the principal will be out of the country for, say, two years). Most gonzáles of trial attorney documents allow an agent to represent the principal in all property and financial matters as long as the principals mental state of mind is good. If a situation occurs where the principal becomes incapable of making decisions for him or herself, the POA agreement would automatically end. However, someone who wants the POA to remain in effect after the persons health deteriorates would need to sign a durable power of trial attorney (DPOA). What is an advance directive? An advance directive is a legal document that says how you want to be cared for if you are unable to make decisions. You can include what medical treatments you would want and who you would trust to make decisions for you. An advance directive can also include other legal documents. A living will is a list of treatment preferences. It can be used to indicate whether you would want cardiopulmonary resuscitation (CPR), tube feedings, a breathing machine, or certain medicines, like antibiotics. The durable power of trial attorney for health care document identifies the person you would want to make medical decisions for you. This person is also called a proxy. Your proxy should be familiar with your values and wishes. How do I get started? You can get advance directive documents for your state from your doctor's office or from http://www.caringinfo.org. Review the forms, and ask your doctor if you have any questions. Pick a person to be your proxy, and talk it over with that person. Signed PATIENT: MICHAELA COOPER SACCOUNT: [id number] : 1945 LOCATION: [facility] AGE: 75 SEX: F EXAM STATUS: ADM IN ORD. PHYSICIAN: SHARRON GRUBBS MD REASON: Fall at SNF prior to admit, still with RODAS, neck pain PROCEDURE: CT HEAD AND CERVICAL SPINE WO EXAM: Head and cervical spine CT without contrast. HISTORY: Fall. TECHNIQUE: Computed tomographic images of the head and cervical spine were obtained without contrast. *One or more of the following individualized dose reduction techniques were utilized for this examination: 1. Automated exposure control. 2. Adjustment of the mA and/or kV according to patient size. 3. Use of iterative reconstruction technique. COMPARISON: 02/29/2020. FINDINGS: Head: There is no acute hemorrhage. There is no mass effect or midline shift. There is no hydrocephalus. There is cerebral volume loss with increased bifrontal extra-axial space. There is encephalomalacia due to chronic infarction involving the right cerebellum. There is also a suspected small chronic infarct within the left basal ganglia. There are bilateral cerebral white matter changes, likely due to chronic small vessel disease. There is mild. Sinus because of thickening. The orbits and mastoid air cells are unremarkable. No suspicious calvarial lesion is seen Cervical spine: There is cervical kyphosis and mild multilevel degenerative listhesis. There is multilevel endplate remodeling and osteophytosis. There is disc space narrowing at C5-C6. There is multilevel facet and uncovertebral arthropathy. There is no fracture or suspicious osseous lesion. The combination of degenerative changes results in moderate right and mild left foraminal stenosis at C3-C4, moderate left greater than right foraminal stenosis at C4-C5, severe right and moderate left foraminal and mild central canals of cysts at C5- C6, and mild central canal stenosis at C6-C7. IMPRESSION: 1. No acute intracranial finding or evidence acute cervical spine trauma. 2. Bilateral cerebral white matter changes, likely due to chronic small vessel disease. 3. Chronic infarct within the right cerebellum and likely the left basal ganglia. 4. Multilevel degenerative change involving the cervical spine, described above. Electronically signed by: Jenn Bhandari MD (10/22/2020 2:38 PM) [id number] FINAL DIAGNOSIS Problems Medical Problems: (1) ANN MARIE (acute kidney injury) Status: Acute (2) Nausea, vomiting, and diarrhea Status: Acute Brief Hospital Course Ms. Cooper is a 75 old [sex] who presented with [ ] Discharge Medications Current Medications Sodium Chloride 1,000 ml @ 125 mls/hr 1X ONCE IV Last administered on 10/20/20at 16:03; Start 10/20/20 at 15:30; Stop 10/20/20 at 23:29; Status DC Ondansetron HCl (Zofran) 4 mg PRN Q4HRS PRN IV NAUSEA/VOMITING 1ST CHOICE Last administered on 10/22/20 10:15; Start 10/20/20 at 22:00 Acetaminophen (Tylenol) 650 mg PRN Q4HRS PRN PO TEMP OVER 100.4F OR MILD PAIN Last administered on 10/25/20 16:15; Start 10/20/20 at 22:00 Amlodipine Besylate (Norvasc) 10 mg DAILY PO Last administered on 10/26/20 08:35; Start 10/21/20 at 09:00 Aspirin (Ecotrin) 81 mg DAILY PO Last administered on 10/26/20 08:34; Start 10/21/20 at 09:00 Atorvastatin Calcium (Lipitor) 20 mg QHS PO Last administered on 10/25/20 21:44; Start 10/20/20 at 23:00 Bupropion HCl (Wellbutrin Sr) 150 mg DAILY PO Last administered on 10/26/20 08:34; Start 10/21/20 at 09:00 Fluticasone Propionate (Flonase) 2 spray DAILY NS Last administered on 10/26/20 08:36; Start 10/21/20 at 09:00 Hydralazine HCl (Apresoline) 100 mg TID PO Last administered on 10/26/20 08:34; Start 10/20/20 at 23:00 Isosorbide Mononitrate (Imdur) 30 mg DAILY PO Last administered on 10/26/20 08:35; Start 10/21/20 at 09:00 Metoprolol Tartrate (Lopressor) 50 mg BID PO Last administered on 10/26/20 08:35; Start 10/20/20 at 23:00 Warfarin Sodium (Coumadin) 6 mg DAILY16 PO Last administered on 10/25/20 15:19; Start 10/21/20 at 16:00 Ceftriaxone Sodium (Rocephin) 1 gm Q24H IVP Last administered on 10/22/20 08:13; Start 10/21/20 at 10:00; Stop 10/22/20 at 18:00; Status DC Sodium Chloride 1,000 ml @ 125 mls/hr 1X ONCE IV Last administered on 10/21/20 11:11; Start 10/21/20 at 11:15; Stop 10/21/20 at 19:14; Status DC Warfarin Sodium (Coumadin Per Physician) 1 each PRN DAILY PRN MC SEE COMMENTS; Start 10/21/20 at 11:15 Tramadol HCl (Ultram) 50 mg PRN Q6HRS PRN PO MILD TO MODERATE PAIN Last administered on 10/22/20at 08:12; Start 10/21/20 at 15:15 Insulin Human Lispro (HumaLOG) 0-7 UNITS TIDWMEALS SQ Last administered on 10/26/20at 08:41; Start 10/22/20 at 09:00 Dextrose (Dextrose 50%-Water Syringe) 12.5 gm PRN Q15MIN PRN IV SEE COMMENTS; Start 10/22/20 at 09:00 Atropine Sulfate (ATROPINE 0.5mg SYRINGE) 0.5 mg 1X ONCE IV ; Start 10/22/20 at 10:15; Stop 10/22/20 at 10:56; Status DC Potassium Bicarbonate (Potassium Effervescent Tablet) 40 meq 1X ONCE PO Last administered on 10/22/20at 10:57; Start 10/22/20 at 10:15; Stop 10/22/20 at 10:16; Status DC Cefdinir (Omnicef) 300 mg BID PO Last administered on 10/23/20at 08:52; Start 10/22/20 at 21:00; Stop 10/23/20 at 11:25; Status DC Meropenem 500 mg/ Sodium Chloride 50 ml @ 100 mls/hr Q8HRS IV Last administered on 10/26/20at 05:49; Start 10/23/20 at 14:00; Stop 10/26/20 at 09:15; Status DC Lidocaine HCl (Buffered Lidocaine 1%) 3 ml STK-MED ONCE .ROUTE ; Start 10/23/20 at 14:12; Stop 10/23/20 at 14:12; Status DC Lidocaine HCl (Buffered Lidocaine 1%) 6 ml 1X ONCE INJ ; Start 10/23/20 at 14:15; Stop 10/23/20 at 14:16; Status DC Insulin Glargine (Lantus Syringe) 8 unit QHS SQ Last administered on 10/25/20at 21:52; Start 10/23/20 at 21:00 Lactobacillus Rhamnosus (Culturelle) 1 cap BID PO Last administered on 10/26/20at 08:34; Start 10/25/20 at 09:00 Fosfomycin Tromethamine (Monurol) 3 gm 1X ONCE PO Last administered on 10/26/20at 10:59; Start 10/26/20 at 10:00; Stop 10/26/20 at 10:01; Status DC Active Scripts Active Fosfomycin Tromethamine 3 Gm Packet 3 Gm PO 1X 1 Days Nystop (Nystatin) 60 Gm Powder 1 Bernardo TP BID 30 Days Latanoprost 2.5 Ml Drops 1 Drop OU QHS 30 Days Amlodipine Besylate 10 Mg Tablet 10 Mg PO DAILY 30 Days Isosorbide Mononitrate Er (Isosorbide Mononitrate) 30 Mg Tab.er.24h 30 Mg PO DAILY 30 Days Metoprolol Tartrate 50 Mg Tablet 50 Mg PO BID 30 Days Hydralazine Hcl 25 Mg Tablet 4 Tab PO TID 30 Days Lisinopril 10 Mg Tablet 40 Mg PO DAILY 30 Days Atorvastatin Calcium 20 Mg Tablet 20 Mg PO QHS 30 Days Tylenol (Acetaminophen) 325 Mg Tablet 650 Mg PO PRN Q6HRS PRN 30 Days Coumadin (Warfarin Sodium) 3 Mg Tablet 6 Mg PO DAILY16 30 Days [Albuterol Sulfate] 2.5 MG/3 ML Nebu 2.5 Mg NEB PRN Q4HRS PRN Reported Ventolin Hfa Inhaler (Albuterol Sulfate) 18 Gm Hfa.aer.ad 2 Puff INH Q4HRS Combivent Respimat Inhal (Ipratropium/Albuterol Sulfate) 4 Gm Aer.w.adap 2 Inh IH QID Loratadine 10 Mg Tablet 10 Mg PO DAILY Loperamide (Loperamide Hcl) 2 Mg Tablet 2 Mg PO PRN Q4HRS PRN Wellbutrin Sr (Bupropion Hcl) 150 Mg Tablet.er 150 Mg PO DAILY Novolog (Insulin Aspart) 100 Unit/1 Ml Cartridge 15 Unit SQ TID Aspirin Ec (Aspirin) 81 Mg Tablet.dr 1 Tab PO DAILY Fluticasone Propionate Nasal Mellen (Fluticasone Propionate) 16 Gm Mellen.susp 2 Mellen NS DAILY LAST DOSE GIVEN: DATE: 10-13-15 TIME: 9 am NEXT DOSE DUE: DATE: 10-14-15 TIME: 9 am Vitamin D2 (Ergocalciferol (Vitamin D2)) 50,000 Unit Capsule 1 Cap PO QSA Vital Signs Vital Signs Date Time Temp Pulse Resp B/P (MAP) Pulse Ox O2 Delivery O2 Flow Rate FiO2 10/26/20 11:00 97.7 83 18 163/87 (112) 96 Room Air 97.7 Labs Laboratory Tests Test 10/24/20 16:21 10/24/20 20:43 10/25/20 07:38 10/25/20 11:48 Glucose (Fingerstick) 219 mg/dL (70-99) 207 mg/dL (70-99) 176 mg/dL (70-99) 267 mg/dL (70-99) Test 10/25/20 16:55 10/25/20 20:38 10/26/20 06:20 10/26/20 07:30 Glucose (Fingerstick) 173 mg/dL (70-99) 230 mg/dL (70-99) 183 mg/dL (70-99) White Blood Count 6.3 x10^3/uL (4.0-11.0) Red Blood Count 4.11 x10^6/uL (3.50-5.40) Hemoglobin 11.4 g/dL (12.0-15.5) Hematocrit 33.8 % (36.0-47.0) Mean Corpuscular Volume 82 fL (79-100) Mean Corpuscular Hemoglobin 28 pg (25-35) Mean Corpuscular Hemoglobin Concent 34 g/dL (31-37) Red Cell Distribution Width 15.7 % (11.5-14.5) Platelet Count 282 x10^3/uL (140-400) Neutrophils (%) (Auto) 81 % (31-73) Lymphocytes (%) (Auto) 9 % (24-48) Monocytes (%) (Auto) 7 % (0-9) Eosinophils (%) (Auto) 2 % (0-3) Basophils (%) (Auto) 1 % (0-3) Neutrophils # (Auto) 5.1 x10^3/uL (1.8-7.7) Lymphocytes # (Auto) 0.6 x10^3/uL (1.0-4.8) Monocytes # (Auto) 0.4 x10^3/uL (0.0-1.1) Eosinophils # (Auto) 0.1 x10^3/uL (0.0-0.7) Basophils # (Auto) 0.1 x10^3/uL (0.0-0.2) Sodium Level 140 mmol/L (136-145) Potassium Level 3.6 mmol/L (3.5-5.1) Chloride Level 104 mmol/L (98-107) Carbon Dioxide Level 29 mmol/L (21-32) Anion Gap 7 (6-14) Blood Urea Nitrogen 13 mg/dL (7-20) Creatinine 0.9 mg/dL (0.6-1.0) Estimated GFR (Cockcroft-Gault) 61.2 Glucose Level 191 mg/dL (70-99) Calcium Level 8.4 mg/dL (8.5-10.1) Laboratory Tests Test 10/25/20 11:48 10/25/20 16:55 10/25/20 20:38 10/26/20 06:20 Glucose (Fingerstick) 267 mg/dL (70-99) 173 mg/dL (70-99) 230 mg/dL (70-99) White Blood Count 6.3 x10^3/uL (4.0-11.0) Red Blood Count 4.11 x10^6/uL (3.50-5.40) Hemoglobin 11.4 g/dL (12.0-15.5) Hematocrit 33.8 % (36.0-47.0) Mean Corpuscular Volume 82 fL (79-100) Mean Corpuscular Hemoglobin 28 pg (25-35) Mean Corpuscular Hemoglobin Concent 34 g/dL (31-37) Red Cell Distribution Width 15.7 % (11.5-14.5) Platelet Count 282 x10^3/uL (140-400) Neutrophils (%) (Auto) 81 % (31-73) Lymphocytes (%) (Auto) 9 % (24-48) Monocytes (%) (Auto) 7 % (0-9) Eosinophils (%) (Auto) 2 % (0-3) Basophils (%) (Auto) 1 % (0-3) Neutrophils # (Auto) 5.1 x10^3/uL (1.8-7.7) Lymphocytes # (Auto) 0.6 x10^3/uL (1.0-4.8) Monocytes # (Auto) 0.4 x10^3/uL (0.0-1.1) Eosinophils # (Auto) 0.1 x10^3/uL (0.0-0.7) Basophils # (Auto) 0.1 x10^3/uL (0.0-0.2) Sodium Level 140 mmol/L (136-145) Potassium Level 3.6 mmol/L (3.5-5.1) Chloride Level 104 mmol/L (98-107) Carbon Dioxide Level 29 mmol/L (21-32) Anion Gap 7 (6-14) Blood Urea Nitrogen 13 mg/dL (7-20) Creatinine 0.9 mg/dL (0.6-1.0) Estimated GFR (Cockcroft-Gault) 61.2 Glucose Level 191 mg/dL (70-99) Calcium Level 8.4 mg/dL (8.5-10.1) Test 10/26/20 07:30 Glucose (Fingerstick) 183 mg/dL (70-99) Allergies Allergies Coded Allergies Type Severity Reaction Last Updated Verified fexofenadine Allergy Intermediate Palpitations 10/04/15 Yes Justicifation of Admission Dx: Justifications for Admission: Justification of Admission Dx: Yes BRIGIDA SALAZAR MD Oct 26, 2020 11:43
--- NOTE | 2020-10-26 11:44 | SNU/HH DC ---
DISCHARGE ORDERS DISCHARGE INFORMATION: FINAL DIAGNOSIS Problems Medical Problems: (1) ANN MARIE (acute kidney injury) Status: Acute (2) Nausea, vomiting, and diarrhea Status: Acute CONDITION ON DISCHARGE: Stable CODE STATUS: Code Status: Full MCC: SNF STAY <30 DAYS: Yes HOSPICE: HOSPICE: No HOSPICE EVAL & TREAT: No LTAC: ADMIT TO LTAC: No POST DISCHARGE ORDERS: ACTIVITY ORDERS: Activity as tolerated WEIGHT BEARING STATUS: No restrictions DIET AFTER DISCHARGE: ADA CHECKS AFTER DISCHARGE: CHECKS AFTER DISCHARGE: Check blood press - daily, Check blood sugar, ac/hs, Weigh Yourself Daily FOLLOW-UP: PHYSICIAN FOLLOW-UP: pcp in 2 days TREATMENT/EQUIPMENT ORDERS: ADAPTIVE EQUIPMENT NEEDED: Walker RESPIRATORY EQUIPMENT NEEDED: Nebulizer Physical Therapy For: Evalulation/Treatment Occupational Therapy For: Evaluation/Treatment Speech Language Pathology For: Evaluation/Treatment DISCHARGE MEDICATIONS: Home Meds Active Scripts Fosfomycin Tromethamine (Fosfomycin Tromethamine) 3 Gm Packet, 3 GM PO 1X for ESBL UTI for 1 Day, #1 PKT Prov:SHARRON GRUBBS MD 10/25/20 Nystatin (NYSTOP) 60 Gm Powder, 1 ANDREIA TP BID for intertrigo for 30 Days, #30 MISC Prov:SHARRON GRUBBS MD 03/09/20 Latanoprost (LATANOPROST) 2.5 Ml Drops, 1 DROP OU QHS for Glaucoma for 30 Days, #30 DROP Prov:SHARRON GRUBBS MD 03/09/20 Amlodipine Besylate (AMLODIPINE BESYLATE) 10 Mg Tablet, 10 MG PO DAILY for HTN for 30 Days, #30 TAB Prov:SHARRON GRUBBS MD 03/09/20 Isosorbide Mononitrate (ISOSORBIDE MONONITRATE ER) 30 Mg Tab.er.24h, 30 MG PO DAILY for HTN for 30 Days, #30 TAB.SR Prov:SHARRON GRUBBS MD 03/09/20 Metoprolol Tartrate (METOPROLOL TARTRATE) 50 Mg Tablet, 50 MG PO BID for FOR HYPERTENSION for 30 Days, #60 TAB 0 Refills Prov:SHARRON GRUBBS MD 03/09/20 Hydralazine Hcl (HYDRALAZINE HCL) 25 Mg Tablet, 4 TAB PO TID for blood pressure for 30 Days, #360 TAB 5 Refills Prov:SHARRON GRUBBS MD 03/09/20 Lisinopril (LISINOPRIL) 10 Mg Tablet, 40 MG PO DAILY for heart/bp/kidneys for 30 Days, #120 TAB Prov:SHARRON GRUBBS MD 03/09/20 Atorvastatin Calcium (ATORVASTATIN CALCIUM) 20 Mg Tablet, 20 MG PO QHS for cholesterol for 30 Days, #30 TAB Prov:Evelin RUIZ MD 05/24/19 Acetaminophen (TYLENOL) 325 Mg Tablet, 650 MG PO PRN Q6HRS PRN for PAIN for 30 Days, #100 TAB Prov:Evelin RUIZ MD 05/24/19 Warfarin Sodium (COUMADIN) 3 Mg Tablet, 6 MG PO DAILY16 for afib for 30 Days, #60 TAB Prov:Evelin RUIZ MD 05/24/19 [Albuterol Sulfate] 2.5 MG/3 ML NEBU No Conflict Check, 2.5 MG NEB PRN Q4HRS PRN for SHORTNESS OF BREATH Prov:Evelin RUIZ MD 06/25/15 Reported Medications Albuterol Sulfate (VENTOLIN HFA INHALER) 18 Gm Hfa.aer.ad, 2 PUFF INH Q4HRS for FOR ASTHMA, INHALER 0 Refills 02/24/20 Ipratropium/Albuterol Sulfate (COMBIVENT RESPIMAT INHAL) 4 Gm Aer.w.adap, 2 INH IH QID for copd, INHALER 02/24/20 Loratadine (LORATADINE) 10 Mg Tablet, 10 MG PO DAILY for allergies, TAB 02/24/20 Loperamide Hcl (LOPERAMIDE) 2 Mg Tablet, 2 MG PO PRN Q4HRS PRN for DIARRHEA, TAB 02/24/20 Bupropion Hcl (WELLBUTRIN SR) 150 Mg Tablet.er, 150 MG PO DAILY for antidepresant, TAB.SR 05/21/19 Insulin Aspart (NOVOLOG) 100 Unit/1 Ml Cartridge, 15 UNIT SQ TID for glucose control, EACH 05/21/19 Aspirin (ASPIRIN EC) 81 Mg Tablet.dr, 1 TAB PO DAILY for circulations, #30 TAB 3 Refills 05/21/19 Fluticasone Propionate (FLUTICASONE PROPIONATE NASAL SPRAY) 16 Gm [place].susp, 2 SPRAY NS DAILY, #1 INHALER 11 Refills LAST DOSE GIVEN: DATE: 10-13-15 TIME: 9 am NEXT DOSE DUE: DATE: 10-14-15 TIME: 9 am 06/23/15 Ergocalciferol (Vitamin D2) (VITAMIN D2) 50,000 Unit Capsule, 1 CAP PO QSA for supplement, #4 CAP 5 Refills 06/23/15 Discontinued Reported Medications Furosemide (FUROSEMIDE) 40 Mg Tablet, 40 MG PO DAILY for diuretic, TAB 02/24/20 Warfarin Sodium (WARFARIN SODIUM) 1 Mg Tablet, 0.5 MG PO DAILY for blood thinner, TAB 02/24/20 Discontinued Scripts Enoxaparin Sodium (ENOXAPARIN SODIUM) 120 Mg/0.8 Ml Disp.syrin, 120 MG SQ Q12HR for AFib for 5 Days, #10 DIS.SYR Prov:SHARRON GRUBBS MD 03/09/20 Digoxin (LANOXIN) 125 Mcg Tablet, 125 MCG PO DAILY for 30 Days Prov:LINDA RG MD 10/13/15 BRIGIDA SALAZAR MD Oct 26, 2020 11:44
--- NOTE | 2020-10-26 12:01 | NUR ---
IP: Pt is ESBL positive in urine requiring contact precautions. The droplet precautions were cancelled.
--- NOTE | 2020-10-26 13:14 | NUR ---
pt discharged back to [facility]. report given to DONATO Barker. meds and follow up reviewed. PICC removed from right upper arm. no bleeding. cath intact. pt stable and on room air upon dc.
== END 2020-10-26 13:00 | DRG 871 ==
LOC: ER 11:15 → ED HOLD 15:18 → 6 SOUTH 20:02 → 5 NORTH 10-23 16:15
PROVIDERS: ADMIT Internal Medicine; ATTEND Internal Medicine
PROC: 02HV33Z Insertion of Infusion Device into Superior Vena Cava, Percutaneous Approach (ICD-10-PCS; principal; 2020-10-23)
PROC: B548ZZA Ultrasonography of Superior Vena Cava, Guidance (ICD-10-PCS; 2020-10-23)
DX: A41.9 Sepsis, unspecified organism (principal); N17.0 Acute kidney failure with tubular necrosis; N39.0 Urinary tract infection, site not specified; I13.0 Hypertensive heart and chronic kidney disease with heart failure and stage 1 through stage 4 chronic kidney disease, or unspecified chronic kidney disease; I42.9 Cardiomyopathy, unspecified; J44.1 Chronic obstructive pulmonary disease with (acute) exacerbation; Z68.42 Body mass index [BMI] 45.0-49.9, adult; Z16.12 Extended spectrum beta lactamase (ESBL) resistance; E66.01 Morbid (severe) obesity due to excess calories; I50.9 Heart failure, unspecified; E78.5 Hyperlipidemia, unspecified; F32.9 Major depressive disorder, single episode, unspecified; F03.90 Unspecified dementia, unspecified severity, without behavioral disturbance, psychotic disturbance, mood disturbance, and anxiety; E11.22 Type 2 diabetes mellitus with diabetic chronic kidney disease; I48.91 Unspecified atrial fibrillation; I25.5 Ischemic cardiomyopathy; N18.9 Chronic kidney disease, unspecified; Z20.822 Contact with and (suspected) exposure to COVID-19; M48.02 Spinal stenosis, cervical region; E78.00 Pure hypercholesterolemia, unspecified; Z87.891 Personal history of nicotine dependence; Z86.73 Personal history of transient ischemic attack (TIA), and cerebral infarction without residual deficits; Z83.3 Family history of diabetes mellitus; Z90.49 Acquired absence of other specified parts of digestive tract; A08.4 Viral intestinal infection, unspecified; K52.9 Noninfective gastroenteritis and colitis, unspecified; Z90.710 Acquired absence of both cervix and uterus; Z98.891 History of uterine scar from previous surgery; F41.9 Anxiety disorder, unspecified; Z98.51 Tubal ligation status
CPT/HCPCS: 36415; 36573; 70450; 71045; 72125; 77001; 80048; 80053; 80069; 81001; 82553; 82962; 83690; 83735; 83880; 84484; 85007; 85025; 85610; 87077; 87086; 87186; 87804; 93005; 96360; 96361; 99285; C1751; C1892; J0696; J1815; J2185; J2405; J7030; U0003; 97110-GO; 97110-GP; 97116-GP; 97530-GP; G0378

== ENCOUNTER → 2020-12-18 | Outpatient (CLI) | payer MEDICARE, MEDICAID ==
[~2020-12-18] MED LIST changes: +FOSF3PAC4 PO
--- NOTE | 2020-12-18 14:18 | CARD ---
MR#: [id number] Date of Study: 12/18/2020 Ordering Physician: KATIE CABRERA, Referring Physician: KATIE CABRERA, Tech: Leanne Jansen [facility] APPROVED REPORT EXAM: Two-dimensional and M-mode echocardiogram with Doppler and color Doppler. Other Information Quality : Fair Rhythm : Atrial Fibrillation INDICATION Diastolic Heart Failure 2D DIMENSIONS RVDd3.0 (2.9-3.5cm)Left Atrium(2D)4.8 (1.6-4.0cm) IVSd1.2 (0.7-1.1cm)Aortic Root(2D)2.8 (2.0-3.7cm) LVDd4.6 (3.9-5.9cm)PWd1.2 (0.7-1.1cm) LVDs2.9 (2.5-4.0cm)FS (%) 30.0 % LVEF(%)60.0 (>50%) Aortic Valve AoV Peak Gary.146.7cm/sAoV VTI28.8cm AO Peak GR.8.6mmHgLVOT Peak Gary.95.9cm/s LVOT VTI 17.86cmAO Mean GR.5mmHg Mitral Valve MV E Prvmfcak865.4cm/sMV DECEL [id number] MV [id number] (PHT)5.16cm2 TDI E/Lateral E'17.3E/Medial E'37.7 Tricuspid Valve TR P. Sanwajuq283yc/sRAP [id number] TR Peak Gr.95ddDrUNCM31rsWx Pulmonary Vein S1 Ewxnngkd18.9cm/sD2 Vhgalxwb41.2cm/s LEFT VENTRICLE The left ventricle is normal size. There is mild concentric left ventricular hypertrophy. The left ve ntricular systolic function is normal. The Ejection Fraction is 55-60%. There is normal LV segmental wall motion. RIGHT VENTRICLE The right ventricle is normal size. The right ventricular systolic function is normal. ATRIA The left atrium is mildly dilated. The right atrium is mildly dilated. The interatrial septum is inta ct with no evidence for an atrial septal defect or patent foramen ovale as noted on 2-D or Doppler im aging. AORTIC VALVE The aortic valve is calcified but opens well. Doppler and Color Flow revealed trace aortic regurgitat ion. There is no significant aortic valvular stenosis. MITRAL VALVE The mitral valve is calcified but opens well. There is no evidence of mitral valve prolapse. There is no mitral valve stenosis. Doppler and Color-flow revealed trace mitral regurgitation. TRICUSPID VALVE The tricuspid valve is normal in structure and function. Doppler and Color Flow revealed trace tricus pid regurgitation. The PA pressure was estimated at 33 mmHg. There is no tricuspid valve stenosis. PULMONIC VALVE The pulmonic valve is not well visualized. Doppler and Color Flow revealed no pulmonic valvular regur gitation. There is no pulmonic valvular stenosis. GREAT VESSELS The aortic root is normal in size. The ascending aorta is not well seen. The IVC is normal in size an d collapses >50% with inspiration. PERICARDIAL EFFUSION There is no evidence of significant pericardial effusion. Critical Notification Critical Value: No <Conclusion> The left ventricular systolic function is normal. The Ejection Fraction is 55-60%. There is normal LV segmental wall motion. Trace mitral regurgitation. Trace tricuspid regurgitation. The PA pressure was estimated at 33 mmHg. There is no evidence of significant pericardial effusion. Signed by : Dominick Biggs, Electronically Approved : 12/18/2020 14:17:46
== END ==
LOC: ECHO 12:25
PROVIDERS: ATTEND Internal Medicine Cardiovascular Disease
DX: I08.0 Rheumatic disorders of both mitral and aortic valves (principal); I50.30 Unspecified diastolic (congestive) heart failure
CPT/HCPCS: 93306

== ENCOUNTER 2021-09-25 12:34 | Inpatient (IN) | payer MEDICAID, MEDICARE ==
[~2021-09-25] VITALS: Ht 162.6 cm; Wt 147.5 kg
[~2021-09-25 12:34] MED LIST changes: +ALBU2.5V14 NEB; -DULO60CA6 PO; +DULO60CA7 PO; +FURO-68 PO
[2021-09-25] MEDS ORDERED: IPRATRPIUM/ALBUTEROL 0.5/2.5MG 3 ML NEBU. ONE (12:52)
[2021-09-25] MEDS ORDERED: ASPIRIN 325 MG TABLET PO ONE (13:00)
[2021-09-25] MEDS ORDERED: DEXAMETHASONE SOD PHOS 4 MG/ML VIAL IVP ONE (13:00)
[2021-09-25] MEDS ORDERED: IPRATRPIUM/ALBUTEROL 0.5/2.5MG 3 ML NEBU. NEB ONE (13:00)
[2021-09-25 13:03] LABS: BASO # 0.1 x10^3/uL (0.0-0.2); BASO % 1 % (0-3); EOS # 0.2 x10^3/uL (0.0-0.7); EOS % 2 % (0-3); HEMATOCRIT 40.6 % (36.0-47.0); HEMOGLOBIN 12.9 g/dL (12.0-15.5); LYMPH % 11 % (24-48); MEAN CORPUSCULAR HEMOGLOBIN 24 pg (25-35); MEAN CORPUSCULAR HGB CONC 32 g/dL (31-37); MEAN CORPUSCULAR VOLUME 75 fL (79-100); MONO # 0.7 x10^3/uL (0.0-1.1); MONO % 8 % (0-9); NEUT # 7.1 x10^3/uL (1.8-7.7); NEUT % 78 % (31-73); PLATELET COUNT 340 x10^3/uL (140-400); RED BLOOD COUNT 5.38 x10^6/uL (3.50-5.40); RED CELL DISTRIBUTION WIDTH 19.6 % (11.5-14.5)
[2021-09-25 13:14] LABS: CALCIUM 8.3 mg/dL (8.5-10.1); CREATININE 1.2 mg/dL (0.6-1.0); GFR 43.8; POTASSIUM 3.7 mmol/L (3.5-5.1)
--- NOTE | 2021-09-25 13:19 | RAD ---
EXAMINATION: Chest radiograph. VIEWS: 1 COMPARISON: 10/20/2020 INDICATION:76 years, Female, dyspnea. FINDINGS: Normal cardiomediastinal silhouette. Increased bilateral perihilar and basilar opacities. No pleural effusion or pneumothorax. No acute osseous process. IMPRESSION: Increased bilateral perihilar and basilar opacities. Differential includes interstitial pulmonary gregg ma versus less likely atypical pneumonia. Electronically signed by: Kodi Kyle MD (09/25/2021 1:17 PM) [facility]
[2021-09-25 13:20] LABS: ALBUMIN 3.2 g/dL (3.4-5.0); ALBUMIN/GLOBULIN RATIO 0.8 (1.0-1.7); MAGNESIUM 2.1 mg/dL (1.8-2.4); TOTAL BILIRUBIN 0.7 mg/dL (0.2-1.0)
[2021-09-25 13:41] LABS: INFLUENZA A PATIENT NEGATIVE (NEGATIVE); INFLUENZA B PATIENT NEGATIVE (NEGATIVE)
--- NOTE | 2021-09-25 15:37 | PHYS DOC ---
Past Medical History Past Medical History: A-Fib, Anxiety, CHF, COPD, Diabetes-Type II, High Cholesterol, Hypertension Past Surgical History: Appendectomy, Cholecystectomy, , Hysterectomy, Tubal ligation, Other Additional Past Surgical Histo: bladder Smoking Status: Never Smoker Alcohol Use: None Drug Use: None Social History Narrative: I USED TO DO [facility] General Adult EDM: Chief Complaint: SHORTNESS OF BREATH HPI: HPI: Patient is a 76 year old [f__sex] who presents with [] Review of Systems: Review of Systems: Constitutional: Denies fever or chills. [] Eyes: Denies change in visual acuity. [] HENT: Denies nasal congestion or sore throat. [] Respiratory: Denies cough or shortness of breath. [] Cardiovascular: Denies chest pain or edema. [] GI: Denies abdominal pain, nausea, vomiting, bloody stools or diarrhea. [] : Denies dysuria. [] Musculoskeletal: Denies back pain or joint pain. [] Integument: Denies rash. [] Neurologic: Denies headache, focal weakness or sensory changes. [] Endocrine: Denies polyuria or polydipsia. [] Lymphatic: Denies swollen glands. [] Psychiatric: Denies depression or anxiety. [] Heart Score: Risk Factors: Risk Factors: DM, Current or recent (<one month) smoker, HTN, HLP, family history of CAD, obesity. Risk Scores: Score 0 - 3: 2.5% MACE over next 6 weeks - Discharge Home Score 4 - 6: 20.3% MACE over next 6 weeks - Admit for Clinical Observation Score 7 - 10: 72.7% MACE over next 6 weeks - Early Invasive Strategies Current Medications: Current Medications Medications (Trade) Dose Ordered Sig/[facility] Start Time Stop Time Status Last Admin Dose Admin Albuterol/ Ipratropium (Duoneb) 3 ml STK-MED ONCE 09/25/21 12:52 09/25/21 12:52 GA Aspirin (Rom Aspirin) 325 mg 1X ONCE 09/25/21 13:00 09/25/21 13:01 DC 09/25/21 13:12 325 MG Dexamethasone Sodium Phosphate (Decadron) 10 mg 1X ONCE 09/25/21 13:00 09/25/21 13:01 DC 09/25/21 13:12 10 MG Allergies: Allergies: Allergies Coded Allergies Type Severity Reaction Last Updated Verified fexofenadine Allergy Intermediate Palpitations 10/04/15 Yes I S O L A T I O N *CONTACT* Allergy Unknown 10/26/20 Yes Physical Exam: PE: Constitutional: Well developed, well nourished, no acute distress, non-toxic appearance. [] HENT: Normocephalic, atraumatic, bilateral external ears normal, oropharynx moist, no oral exudates, nose normal. [] Eyes: PERRLA, EOMI, conjunctiva normal, no discharge. [] Neck: Normal range of motion, no tenderness, supple, no stridor. [] Cardiovascular:Heart rate regular rhythm, no murmur [] Lungs & Thorax: Bilateral breath sounds clear to auscultation [] Abdomen: Bowel sounds normal, soft, no tenderness, no masses, no pulsatile masses. [] Skin: Warm, dry, no erythema, no rash. [] Back: No tenderness, no CVA tenderness. [] Extremities: No tenderness, no cyanosis, no clubbing, ROM intact, no edema. [] Neurologic: Alert and oriented X 3, normal motor function, normal sensory function, no focal deficits noted. [] Psychologic: Affect normal, judgement normal, mood normal. [] Current Patient Data: Labs: Laboratory Tests Test 09/25/21 12:50 09/25/21 13:15 White Blood Count 9.0 x10^3/uL (4.0-11.0) Red Blood Count 5.38 x10^6/uL (3.50-5.40) Hemoglobin 12.9 g/dL (12.0-15.5) Hematocrit 40.6 % (36.0-47.0) Mean Corpuscular Volume 75 fL (79-100) L Mean Corpuscular Hemoglobin 24 pg (25-35) L Mean Corpuscular Hemoglobin Concent 32 g/dL (31-37) Red Cell Distribution Width 19.6 % (11.5-14.5) H Platelet Count 340 x10^3/uL (140-400) Neutrophils (%) (Auto) 78 % (31-73) H Lymphocytes (%) (Auto) 11 % (24-48) L Monocytes (%) (Auto) 8 % (0-9) Eosinophils (%) (Auto) 2 % (0-3) Basophils (%) (Auto) 1 % (0-3) Neutrophils # (Auto) 7.1 x10^3/uL (1.8-7.7) Lymphocytes # (Auto) 1.0 x10^3/uL (1.0-4.8) Monocytes # (Auto) 0.7 x10^3/uL (0.0-1.1) Eosinophils # (Auto) 0.2 x10^3/uL (0.0-0.7) Basophils # (Auto) 0.1 x10^3/uL (0.0-0.2) Sodium Level 141 mmol/L (136-145) Potassium Level 3.7 mmol/L (3.5-5.1) Chloride Level 101 mmol/L (98-107) Carbon Dioxide Level 32 mmol/L (21-32) Anion Gap 8 (6-14) Blood Urea Nitrogen 18 mg/dL (7-20) Creatinine 1.2 mg/dL (0.6-1.0) H Estimated GFR (Cockcroft-Gault) 43.8 BUN/Creatinine Ratio 15 (6-20) Glucose Level 65 mg/dL (70-99) L Lactic Acid Level 1.9 mmol/L (0.4-2.0) Calcium Level 8.3 mg/dL (8.5-10.1) L Magnesium Level 2.1 mg/dL (1.8-2.4) Total Bilirubin 0.7 mg/dL (0.2-1.0) Aspartate Amino Transferase (AST) 19 U/L (15-37) Alanine Aminotransferase (ALT) 19 U/L (14-59) Alkaline Phosphatase 109 U/L (46-116) Creatine Kinase 99 U/L (26-192) Creatine Kinase MB (Mass) 1.5 ng/mL (0.0-3.6) Creatine Kinase MB Relative Index 1.5 % (0-4) Troponin I High Sensitivity 8 ng/L (4-50) UG-Tbr-U-Type Natriuretic Peptide 977 pg/mL (0-449) H Total Protein 7.0 g/dL (6.4-8.2) Albumin 3.2 g/dL (3.4-5.0) L Albumin/Globulin Ratio 0.8 (1.0-1.7) L Influenza Type A Antigen Negative (NEGATIVE) Influenza Type B Antigen Negative (NEGATIVE) Laboratory Tests 09/25/21 12:50 Laboratory Tests 09/25/21 12:50 Vital Signs: Vital Signs Date Time Temp Pulse Resp B/P (MAP) Pulse Ox O2 Delivery O2 Flow Rate FiO2 09/25/21 15:12 82 162/78 (106) 95 Nasal Cannula 2.0 09/25/21 12:40 97.9 12 97.9 EKG: EKG: [] Radiology/Procedures: Radiology/Procedures: [] Course & Med Decision Making: Course & Med Decision Making Pertinent Labs and Imaging studies reviewed. (See chart for details) [] Dragon Disclaimer: Dragon Disclaimer: This electronic medical record was generated, in whole or in part, using a voice recognition dictation system. Departure Departure Impression: Primary Impression: COPD exacerbation Additional Impression: Hypoxia Disposition: ADMITTED INPATIENT Admitting Physician: KATHI (Asiya) Condition: STABLE Referrals: Evelin RUIZ MD (PCP) Critical Care Time Critical care time was 30 minutes which includes time at bedside, spent in discussion of patient's care with specialists and/or family members, with interpretation of laboratory and/or radiological studies and is exclusive of procedures. ANITRA CAMACHO DO Sep 25, 2021 15:37
[2021-09-25] MEDS ORDERED: ONDANSETRON PF 4 MG/2 ML VIAL. IVP PRN (15:45)
[2021-09-25] MEDS ORDERED: ACETAMINOPHEN 325 MG TABLET. PO PRN (15:45)
[2021-09-25] MEDS ORDERED: DEXTROSE 50% 25 GM / 50ML DISP.SYRIN. IV PRN (15:45)
[2021-09-25] MEDS ORDERED: IPRATRPIUM/ALBUTEROL 0.5/2.5MG 3 ML NEBU. NEB PRN (15:45)
--- NOTE | 2021-09-25 15:49 | PDOC1 ---
History and Physical Date of Admission Date of Admission DATE: 09/25/21 TIME: 15:48 Identification/Chief Complaint Chief Complaint Shortness of breath Source Source: Chart review, Patient History of Present Illness History of Present Illness Ms Yang is a 75 yo F w/ PMHx HTN, Hyperlipidemia, AFIB, valvular insufficiency, CHF, cardiomyopathy, COPD, Depression, DM2 who presents to ED via EMS from her assisted living facility [facility]. She is brought in because she has been progressively more short of breath over the past 2 days. She was tested negative for Covid twice. Not hypoxic but very dyspneic. She also notes swelling of her right lower extremity. She denies chest pain no diarrhea no nausea or vomiting. She thinks she may have had multiple recent sick contacts. She has been hospitalized for ESBL in the urine before. She does not complain of any dysuria but does occasionally have incontinence. She has been very weak recently. Fully vaccinated against COVID 19 Labs WBC 9, Hb 12.9, platelets 340, NA 141, K3.7, BUN 18, CR 1.2, glucose 65, lactic acid 1.9, LFTs within normal laboratory limits, NT proBNP 977, troponin is 8 Chest radiograph increased bilateral basilar opacities. telemetry appears A. fib Admitted for further care. Past Medical History Cardiovascular: AFIB, HTN, Hyperlipidemia Pulmonary: Asthma, COPD CENTRAL NERVOUS SYSTEM: Dementia GI: No pertinent hx Heme/Onc: B12 deficiency Hepatobiliary: No pertinent hx Psych: Depression Rheumatologic: No pertinent hx Infectious disease: No pertinent hx Renal/: Chronic renal insuff Endocrine: Diabetes Past Surgical History Past Surgical History: Appendectomy, Cholecystectomy, Tubal Ligation, Hysterectomy Family History Family History: Diabetes Social History ALCOHOL: none Drugs: Marijuana Current Medications Current Medications Current Medications Albuterol/ Ipratropium (Duoneb) 3 ml 1X ONCE NEB Last administered on 09/25/21at 12:55; Start 09/25/21 at 13:00; Stop 09/25/21 at 13:01; Status DC Dexamethasone Sodium Phosphate (Decadron) 10 mg 1X ONCE IVP Last administered on 09/25/21at 13:12; Start 09/25/21 at 13:00; Stop 09/25/21 at 13:01; Status DC Aspirin (Rom Aspirin) 325 mg 1X ONCE PO Last administered on 09/25/21at 13:12; Start 09/25/21 at 13:00; Stop 09/25/21 at 13:01; Status DC Albuterol/ Ipratropium (Duoneb) 3 ml STK-MED ONCE .ROUTE ; Start 09/25/21 at 12:52; Stop 09/25/21 at 12:52; Status DC Ondansetron HCl (Zofran) 4 mg PRN Q8HRS PRN IVP NAUSEA/VOMITING; Start 09/25/21 at 15:45; Stop 09/26/21 at 15:44 Acetaminophen (Tylenol) 650 mg PRN Q4HRS PRN PO FEVER > 100.3'F; Start 09/25/21 at 15:45; Stop 09/26/21 at 15:44 Albuterol/ Ipratropium (Duoneb) 3 ml PRN Q4HRS PRN NEB WHEEZING; Start 09/25/21 at 15:45 Insulin Human Lispro (HumaLOG) 0-5 UNITS TIDWMEALS SQ ; Start 09/25/21 at 17:00 Dextrose (Dextrose 50%-Water Syringe) 12.5 gm PRN Q15MIN PRN IV SEE COMMENTS; Start 09/25/21 at 15:45 Active Scripts Active Fosfomycin Tromethamine 3 Gm Packet 3 Gm PO 1X 1 Days Nystop (Nystatin) 60 Gm Powder 1 Bernardo TP BID 30 Days Latanoprost 2.5 Ml Drops 1 Drop OU QHS 30 Days Amlodipine Besylate 10 Mg Tablet 10 Mg PO DAILY 30 Days Isosorbide Mononitrate Er (Isosorbide Mononitrate) 30 Mg Tab.er.24h 30 Mg PO DAILY 30 Days Metoprolol Tartrate 50 Mg Tablet 50 Mg PO BID 30 Days Hydralazine Hcl 25 Mg Tablet 4 Tab PO TID 30 Days Lisinopril 10 Mg Tablet 40 Mg PO DAILY 30 Days Atorvastatin Calcium 20 Mg Tablet 20 Mg PO QHS 30 Days Tylenol (Acetaminophen) 325 Mg Tablet 650 Mg PO PRN Q6HRS PRN 30 Days Coumadin (Warfarin Sodium) 3 Mg Tablet 6 Mg PO DAILY16 30 Days [Albuterol Sulfate] 2.5 MG/3 ML Nebu 2.5 Mg NEB PRN Q4HRS PRN Reported Ventolin Hfa Inhaler (Albuterol Sulfate) 18 Gm Hfa.aer.ad 2 Puff INH Q4HRS Combivent Respimat Inhal (Ipratropium/Albuterol Sulfate) 4 Gm Aer.w.adap 2 Inh IH QID Loratadine 10 Mg Tablet 10 Mg PO DAILY Loperamide (Loperamide Hcl) 2 Mg Tablet 2 Mg PO PRN Q4HRS PRN Wellbutrin Sr (Bupropion Hcl) 150 Mg Tablet.er 150 Mg PO DAILY Novolog (Insulin Aspart) 100 Unit/1 Ml Cartridge 15 Unit SQ TID Aspirin Ec (Aspirin) 81 Mg Tablet.dr 1 Tab PO DAILY Fluticasone Propionate Nasal [place] (Fluticasone Propionate) 16 Gm [place].susp 2 [place] NS DAILY LAST DOSE GIVEN: DATE: 10-13-15 TIME: 9 am NEXT DOSE DUE: DATE: 10-14-15 TIME: 9 am Vitamin D2 (Ergocalciferol (Vitamin D2)) 50,000 Unit Capsule 1 Cap PO QSA Allergies Allergies: Coded Allergies: fexofenadine (Verified Allergy, Intermediate, Palpitations, 10/04/15) " tachycardia" I S O L A T I O N *CONTACT* (Verified Allergy, Unknown, 10/26/20) ESBL ROS General: YES: Fatigue, Malaise; No: Chills, Night Sweats, Appetite, Other PSYCHOLOGICAL ROS: No: Anxiety, Behavioral Disorder, Concentration difficultie, Decreased libido, Depression, Disorientation, Hallucinations, Hostility, Irritablity, Memory difficulties, Mood Swings, Obsessive thoughts, Physical abuse, Sexual abuse, Sleep disturbances, Suicidal ideation, Other Eyes: No Blurry vision, No Decreased vision, No Double vision, No Dry eyes, No Excessive tearing, No Eye Pain, No Itchy Eyes, No Loss of vision, No Photophobia, No Scotomata, No Uses contacts, No Uses glasses, No Other HEENT: No: Heacaches, Visual Changes, Hearing change, Nasal congestion, Nasal discharge, Oral lesions, Sinus pain, Sore Throat, Epistaxis, Sneezing, Snoring, Tinnitus, Vertigo, Vocal changes, Other ALLERGY AND IMMUNOLOGY: No: Hives, Insect Bite Sensitivity, Itchy/Watery Eyes, Nasal Congestion, Post Nasal Drip, Seasonal Allergies, Other Hematological and Lymphatic: No: Bleeding Problems, Blood Clots, Blood Transfusions, Brusing, Night Sweats, Pallor, Swollen Lymph Nodes, Other ENDOCRINE: No: Breast Changes, Galactorrhea, Hair Pattern Changes, Hot Flashes, Malaise/lethargy, Mood Swings, Palpitations, Polydipsia/polyuria, Skin Changes, Temperature Intolerance, Unexpected Weight Changes, Other Breast: No New/Changing Breast Lumps, No Nipple changes, No Nipple discharge, No Other Respiratory: YES: Cough, Orthopnea, Shortness of breath; No: Hemoptysis, Pleuritic Pain, SOB with excertion, Sputum Changes, Stridor, Tachypnea, Wheezing, Other Cardiovascular: yes Orthopnea, yes Paroxysmal Noc. Dyspnea, yes Edema; No Chest Pain, No Palpitations, No Lt Headedness, No Other Gastrointestinal: No Nausea, No Vomiting, No Abdominal Pain, No Diarrhea, No Constipation, No Melena, No Hematochezia, No Other Genitourinary: No Dysuria, No Frequency, No Incontinence, No Hematuria, No Retention, No Discharge, No Urgency, No Pain, No Flank Pain, No Other, No , No , No , No , No , No , No Musculoskeletal: No Gait Disturbance, No Joint Pain, No Joint Stiffness, No Joint Swelling, No Muscle Pain, No Muscular Weakness, No Pain In:, No Swelling In:, No Other Neurological: No Behavorial Changes, No Bowel/Bladder ControlChng, No Confusion, No Dizziness, No Gait Disturbance, No Headaches, No Impaired Coord/b alance, No Memory Loss, No Numbness/Tingling, No Seizures, No Speech Problems, No Tremors, No Visual Changes, No Weakness, No Other Skin: No Dry Skin, No Eczema, No Hair Changes, No Lumps, No Mole Changes, No Mottling, No Nail Changes, No Pruritus, No Rash, No Skin Lesion Changes, No Other, No Acne Physical Exam General: Alert, Cooperative, mild distress HEENT: Atraumatic, PERRLA, EOMI, Mucous membr. moist/pink Lungs: Other (bilateral crackles) Heart: irregularly irregular Abdomen: Normal bowel sounds, Soft, No tenderness, No hepatosplenomegaly, No masses Rectal Exam: not examined Extremities: No clubbing, No cyanosis, Normal pulses, No tenderness/swelling, Other (2+ edema) Skin: No rashes, No breakdown, No significant lesion Neuro: Normal speech, Strength at 5/5 X4 ext, Normal tone, Sensation intact, Cranial nerves 3-12 NL, Reflexes 2+ Psych/Mental Status: Mental status NL, Mood NL Vitals Vitals Vital Signs Date Time Temp Pulse Resp B/P (MAP) Pulse Ox O2 Delivery O2 Flow Rate FiO2 09/25/21 15:12 82 162/78 (106) 95 Nasal Cannula 2.0 09/25/21 12:40 97.9 12 97.9 Labs Labs Laboratory Tests Test 09/25/21 12:50 09/25/21 13:15 White Blood Count 9.0 x10^3/uL (4.0-11.0) Red Blood Count 5.38 x10^6/uL (3.50-5.40) Hemoglobin 12.9 g/dL (12.0-15.5) Hematocrit 40.6 % (36.0-47.0) Mean Corpuscular Volume 75 fL (79-100) Mean Corpuscular Hemoglobin 24 pg (25-35) Mean Corpuscular Hemoglobin Concent 32 g/dL (31-37) Red Cell Distribution Width 19.6 % (11.5-14.5) Platelet Count 340 x10^3/uL (140-400) Neutrophils (%) (Auto) 78 % (31-73) Lymphocytes (%) (Auto) 11 % (24-48) Monocytes (%) (Auto) 8 % (0-9) Eosinophils (%) (Auto) 2 % (0-3) Basophils (%) (Auto) 1 % (0-3) Neutrophils # (Auto) 7.1 x10^3/uL (1.8-7.7) Lymphocytes # (Auto) 1.0 x10^3/uL (1.0-4.8) Monocytes # (Auto) 0.7 x10^3/uL (0.0-1.1) Eosinophils # (Auto) 0.2 x10^3/uL (0.0-0.7) Basophils # (Auto) 0.1 x10^3/uL (0.0-0.2) Sodium Level 141 mmol/L (136-145) Potassium Level 3.7 mmol/L (3.5-5.1) Chloride Level 101 mmol/L (98-107) Carbon Dioxide Level 32 mmol/L (21-32) Anion Gap 8 (6-14) Blood Urea Nitrogen 18 mg/dL (7-20) Creatinine 1.2 mg/dL (0.6-1.0) Estimated GFR (Cockcroft-Gault) 43.8 BUN/Creatinine Ratio 15 (6-20) Glucose Level 65 mg/dL (70-99) Lactic Acid Level 1.9 mmol/L (0.4-2.0) Calcium Level 8.3 mg/dL (8.5-10.1) Magnesium Level 2.1 mg/dL (1.8-2.4) Total Bilirubin 0.7 mg/dL (0.2-1.0) Aspartate Amino Transf (AST/SGOT) 19 U/L (15-37) Alanine Aminotransferase (ALT/SGPT) 19 U/L (14-59) Alkaline Phosphatase 109 U/L (46-116) Creatine Kinase 99 U/L (26-192) Creatine Kinase MB (Mass) 1.5 ng/mL (0.0-3.6) Creatine Kinase MB Relative Index 1.5 % (0-4) Troponin I High Sensitivity 8 ng/L (4-50) RC-Kyz-M-Type Natriuretic Peptide 977 pg/mL (0-449) Total Protein 7.0 g/dL (6.4-8.2) Albumin 3.2 g/dL (3.4-5.0) Albumin/Globulin Ratio 0.8 (1.0-1.7) Influenza Type A Antigen Negative (NEGATIVE) Influenza Type B Antigen Negative (NEGATIVE) Laboratory Tests Test 09/25/21 12:50 09/25/21 13:15 White Blood Count 9.0 x10^3/uL (4.0-11.0) Red Blood Count 5.38 x10^6/uL (3.50-5.40) Hemoglobin 12.9 g/dL (12.0-15.5) Hematocrit 40.6 % (36.0-47.0) Mean Corpuscular Volume 75 fL (79-100) Mean Corpuscular Hemoglobin 24 pg (25-35) Mean Corpuscular Hemoglobin Concent 32 g/dL (31-37) Red Cell Distribution Width 19.6 % (11.5-14.5) Platelet Count 340 x10^3/uL (140-400) Neutrophils (%) (Auto) 78 % (31-73) Lymphocytes (%) (Auto) 11 % (24-48) Monocytes (%) (Auto) 8 % (0-9) Eosinophils (%) (Auto) 2 % (0-3) Basophils (%) (Auto) 1 % (0-3) Neutrophils # (Auto) 7.1 x10^3/uL (1.8-7.7) Lymphocytes # (Auto) 1.0 x10^3/uL (1.0-4.8) Monocytes # (Auto) 0.7 x10^3/uL (0.0-1.1) Eosinophils # (Auto) 0.2 x10^3/uL (0.0-0.7) Basophils # (Auto) 0.1 x10^3/uL (0.0-0.2) Sodium Level 141 mmol/L (136-145) Potassium Level 3.7 mmol/L (3.5-5.1) Chloride Level 101 mmol/L (98-107) Carbon Dioxide Level 32 mmol/L (21-32) Anion Gap 8 (6-14) Blood Urea Nitrogen 18 mg/dL (7-20) Creatinine 1.2 mg/dL (0.6-1.0) Estimated GFR (Cockcroft-Gault) 43.8 BUN/Creatinine Ratio 15 (6-20) Glucose Level 65 mg/dL (70-99) Lactic Acid Level 1.9 mmol/L (0.4-2.0) Calcium Level 8.3 mg/dL (8.5-10.1) Magnesium Level 2.1 mg/dL (1.8-2.4) Total Bilirubin 0.7 mg/dL (0.2-1.0) Aspartate Amino Transf (AST/SGOT) 19 U/L (15-37) Alanine Aminotransferase (ALT/SGPT) 19 U/L (14-59) Alkaline Phosphatase 109 U/L (46-116) Creatine Kinase 99 U/L (26-192) Creatine Kinase MB (Mass) 1.5 ng/mL (0.0-3.6) Creatine Kinase MB Relative Index 1.5 % (0-4) Troponin I High Sensitivity 8 ng/L (4-50) HM-Aay-N-Type Natriuretic Peptide 977 pg/mL (0-449) Total Protein 7.0 g/dL (6.4-8.2) Albumin 3.2 g/dL (3.4-5.0) Albumin/Globulin Ratio 0.8 (1.0-1.7) Influenza Type A Antigen Negative (NEGATIVE) Influenza Type B Antigen Negative (NEGATIVE) Images Images Chest radiograph: Normal cardiomediastinal silhouette. Increased bilateral perihilar and basilar opacities. No pleural effusion or pneumothorax. No acute osseous process. IMPRESSION: Increased bilateral perihilar and basilar opacities. Differential includes interstitial pulmonary edema versus less likely atypical pneumonia. VTE Prophylaxis Ordered VTE Prophylaxis Devices: Yes VTE Pharmacological Prophylaxi: Yes Assessment/Plan Assessment/Plan A/P: Shortness of breath - with lower extremity edema, orthopnea, this is likely mild acute diastolic CHF exacerbation ANN MARIE - vasomotor nephropathy - will hydrate, has been improving Morbid obesity - counseled Cough - with shortness of breath. Secondary to acute CHF, also possibly with COPD exacerbation. Recovering HTN - cont meds Hyperlipidemia - cont statin AFIB - on BB and coumadin, will continue, monitor INR CHF - unknown if ischemic cardiomyopathy, seems decompensated currently COPD - could be in acute exacerbation Depression - cont meds DM2 - basal bolus plus insulin while inpatient Mass in the right cerebellum with mass effect H/o Left basal ganglia lacunar infarct FEN - Cardiac diet PPX - coumadin CODE - FULL Dispo - inpatient Justifications for Admission Other Justification SHARRON GRUBBS MD Sep 25, 2021 15:48
[2021-09-25] MEDS ORDERED: FUROSEMIDE 40 MG/4 ML VIAL. IVP ONE (20:00)
[2021-09-25 21:20] VITALS: BP 142/87
[2021-09-25] MEDS ORDERED: WARF1TAB69 PO (21:40)
[2021-09-25] MEDS ORDERED: ALBUTEROL SULFATE 8GM INHALER. INH PRN (21:45)
[2021-09-25] MEDS: INSULIN LISPRO 300 UNITS/3 ML VIAL. SQ SCH (21:52)
[2021-09-25] MEDS ORDERED: HYDR100T24 PO (21:59)
[2021-09-25] MEDS ORDERED: LISI-130 PO (21:59)
[2021-09-25] MEDS ORDERED: LATA7.5D OU (21:59)
[2021-09-25] MEDS ORDERED: POTA-121 PO (23:20)
[2021-09-25] MEDS ORDERED: EMOL85CR TP (23:20)
[2021-09-25] MEDS ORDERED: ALBU1.25 NEB (23:20)
[2021-09-25] MEDS ORDERED: FURO-68 PO (23:20)
[2021-09-25] MEDS ORDERED: DULO60CA7 PO (23:20)
[2021-09-25] MEDS ORDERED: GUAI-44 PO (23:20)
[2021-09-25 23:49] VITALS: BP 140/75
[2021-09-26] MEDS ORDERED: guaiFENesin ORAL 200 MG/10 ML LIQUID. PO PRN (03:15)
[2021-09-26 03:50] VITALS: BP 136/70
[2021-09-26 05:11] LABS: BASO % 0 % (0-3); EOS % 0 % (0-3); HEMOGLOBIN 12.1 g/dL (12.0-15.5); LYMPH # 0.4 x10^3/uL (1.0-4.8); LYMPH % 6 % (24-48); MEAN CORPUSCULAR HEMOGLOBIN 24 pg (25-35); MEAN CORPUSCULAR HGB CONC 31 g/dL (31-37); MEAN CORPUSCULAR VOLUME 76 fL (79-100); MONO # 0.2 x10^3/uL (0.0-1.1); MONO % 2 % (0-9); NEUT # 7.2 x10^3/uL (1.8-7.7); NEUT % 92 % (31-73); PLATELET COUNT 309 x10^3/uL (140-400); RED BLOOD COUNT 5.13 x10^6/uL (3.50-5.40); RED CELL DISTRIBUTION WIDTH 19.2 % (11.5-14.5); WHITE BLOOD COUNT 7.8 x10^3/uL (4.0-11.0)
[2021-09-26 05:42] LABS: CALCIUM 8.1 mg/dL (8.5-10.1); CREATININE 1.3 mg/dL (0.6-1.0); GFR 39.9; POTASSIUM 4.5 mmol/L (3.5-5.1)
--- NOTE | 2021-09-26 06:52 | EKG ---
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
[2021-09-26 07:00] VITALS: BP 142/78
[2021-09-26 08:08] LABS: PROTHROMBIN TIME PATIENT 22.5 SEC (11.7-14.0)
[2021-09-26] MEDS: ASPIRIN ENTERIC COATED 81 MG TABLET.DR. PO SCH (10:03)
[2021-09-26] MEDS: CETIRIZINE HCL 10 MG TABLET. PO SCH (10:03)
[2021-09-26] MEDS: buPROPion SR 150 MG TABLET.SA PO SCH (10:03)
[2021-09-26] MEDS: FLUTICASONE 50MCG/NASAL SPRAY 16GM BOTTLE. NS SCH (10:03)
[2021-09-26] MEDS: ISOSORBIDE MONONITRATE ER 30 MG TAB.ER.24H PO SCH (10:03)
[2021-09-26] MEDS: METOPROLOL TART IMMED RELEASE 50 MG TABLET. PO SCH ×2 (10:04→22:21)
[2021-09-26] MEDS: INSULIN LISPRO 300 UNITS/3 ML VIAL. SQ SCH ×3 (10:08→17:57)
[2021-09-26 11:09] VITALS: BP 146/90
--- NOTE | 2021-09-26 13:17 | PDOC ---
[employer] PROGRESS NOTE Date of Service DOS: DATE: 09/26/21 TIME: 13:14 Chief Complaint Chief Complaint COPD Respiratory failure ANN MARIE Morbid obesity Cough Hypertension Hyperlipidemia A. fib COPD CHF Depression Anxiety Diabetes Mass in right cerebellum History of left basal ganglia lacunar infarct History of Present Illness History of Present Illness 09/26/2021 Patient seen and examined She is up in the chair on oxygen appears very weak In moderate respiratory distress On oxygen per nasal cannula Discussed with RN Chart reviewed Vitals/I&O Vitals/I&O: Vital Signs Date Time Temp Pulse Resp B/P (MAP) Pulse Ox O2 Delivery O2 Flow Rate FiO2 09/26/21 11:09 97.3 100 20 146/90 (108) 93 Nasal Cannula 2.0 97.3 I & O 09/25/21 09/25/21 09/26/21 15:00 23:00 07:00 Intake Total 560 ml Output Total 350 ml Balance 210 ml Physical Exam General: Alert, Cooperative, mild distress Heart: Regular rate Lungs: Crackles, Other (Decreased breath sounds) Abdomen: Normal bowel sounds, Soft, No tenderness, No hepatosplenomegaly, No masses, Other (Obese) Extremities: No clubbing, No cyanosis, Normal pulses, No tenderness/swelling, Other (2+ edema) Skin: No rashes, No breakdown, No significant lesion Labs Labs: Laboratory Tests Test 09/25/21 13:15 09/25/21 13:55 09/25/21 17:34 09/25/21 21:46 Influenza Type A Antigen Negative (NEGATIVE) Influenza Type B Antigen Negative (NEGATIVE) SARS-CoV-2 RNA (ALEXA) Negative (Negative) SARS-CoV-2 Antigen (Rapid) Negative (NEGATIVE) Glucose (Fingerstick) 237 mg/dL (70-99) Test 09/26/21 04:30 09/26/21 06:55 09/26/21 08:44 09/26/21 11:26 White Blood Count 7.8 x10^3/uL (4.0-11.0) Red Blood Count 5.13 x10^6/uL (3.50-5.40) Hemoglobin 12.1 g/dL (12.0-15.5) Hematocrit 39.0 % (36.0-47.0) Mean Corpuscular Volume 76 fL (79-100) Mean Corpuscular Hemoglobin 24 pg (25-35) Mean Corpuscular Hemoglobin Concent 31 g/dL (31-37) Red Cell Distribution Width 19.2 % (11.5-14.5) Platelet Count 309 x10^3/uL (140-400) Neutrophils (%) (Auto) 92 % (31-73) Lymphocytes (%) (Auto) 6 % (24-48) Monocytes (%) (Auto) 2 % (0-9) Eosinophils (%) (Auto) 0 % (0-3) Basophils (%) (Auto) 0 % (0-3) Neutrophils # (Auto) 7.2 x10^3/uL (1.8-7.7) Lymphocytes # (Auto) 0.4 x10^3/uL (1.0-4.8) Monocytes # (Auto) 0.2 x10^3/uL (0.0-1.1) Eosinophils # (Auto) 0.0 x10^3/uL (0.0-0.7) Basophils # (Auto) 0.0 x10^3/uL (0.0-0.2) Sodium Level 139 mmol/L (136-145) Potassium Level 4.5 mmol/L (3.5-5.1) Chloride Level 101 mmol/L (98-107) Carbon Dioxide Level 28 mmol/L (21-32) Anion Gap 10 (6-14) Blood Urea Nitrogen 23 mg/dL (7-20) Creatinine 1.3 mg/dL (0.6-1.0) Estimated GFR (Cockcroft-Gault) 39.9 Glucose Level 223 mg/dL (70-99) Calcium Level 8.1 mg/dL (8.5-10.1) Troponin I High Sensitivity 7 ng/L (4-50) Prothrombin Time 22.5 SEC (11.7-14.0) Prothromb Time International Ratio 2.0 (0.8-1.1) Glucose (Fingerstick) 210 mg/dL (70-99) 279 mg/dL (70-99) Assessment and Plan Assessmemt and Plan Problems Medical Problems: (1) COPD exacerbation Status: Acute (2) Hypoxia Status: Acute COPD Respiratory failure ANN MARIE Morbid obesity Cough Hypertension Hyperlipidemia A. fib COPD CHF Depression Anxiety Diabetes Mass in right cerebellum History of left basal ganglia lacunar infarct Plan IV steroids Cardiac monitoring IV antibiotics Beta agonist Steroids Oxygen Consult pulmonary Home meds Trend labs Encourage p.o. intake DVT prophylaxis Full code longterm unit evaluation Long-term prognosis guarded Comment Review of Relevant I have reviewed the following items raman (where applicable) has been applied. Medications: Current Medications Medications (Trade) Dose Ordered Sig/Shikha Route PRN Reason Start Time Stop Time Status Last Admin Dose Admin Insulin Human Lispro (HumaLOG) 0-5 UNITS TIDWMEALS SQ 09/25/21 17:00 09/26/21 12:55 Furosemide (Lasix) 40 mg 1X ONCE IVP 09/25/21 20:00 09/25/21 20:01 DC 09/25/21 21:55 Amlodipine Besylate (Norvasc) 10 mg DAILY PO 09/26/21 09:00 09/26/21 10:04 Aspirin (Ecotrin) 81 mg DAILY PO 09/26/21 09:00 09/26/21 10:03 Bupropion HCl (Wellbutrin Sr) 150 mg DAILY PO 09/26/21 09:00 09/26/21 10:03 Fluticasone Propionate (Flonase) 2 spray DAILY NS 09/26/21 09:00 09/26/21 10:03 Isosorbide Mononitrate (Imdur) 30 mg DAILY PO 09/26/21 09:00 09/26/21 10:03 Metoprolol Tartrate (Lopressor) 50 mg BID PO 09/26/21 09:00 09/26/21 10:04 Hydralazine HCl (Apresoline) 100 mg TID PO 09/26/21 09:00 09/26/21 10:03 Cetirizine HCl (ZyrTEC) 10 mg DAILY PO 09/26/21 09:00 09/26/21 10:03 Justifications for Admission Other Justification NANCY MAHONEY III DO Sep 26, 2021 13:17
[2021-09-26 15:00] VITALS: BP 127/66
[2021-09-26] MEDS: FUROSEMIDE 40 MG/4 ML VIAL. IVP SCH (15:58)
[2021-09-26] MEDS: methylPREDNISolone SOD SUCC PF 40 MG/ML VIAL. IV SCH ×2 (15:58→22:21)
[2021-09-26] MEDS: WARFARIN 1 MG TABLET. PO SCH (15:58)
[2021-09-26] MEDS: WARFARIN 3 MG TABLET. PO SCH (15:59)
[2021-09-26] MEDS: cefTRIAXone IV Push 1 GM VIAL. IVP SCH (16:03)
[2021-09-26] MEDS: IPRATRPIUM/ALBUTEROL 0.5/2.5MG 3 ML NEBU. NEB SCH ×2 (16:41→18:14)
[2021-09-26 19:45] VITALS: BP 142/96
[2021-09-26] MEDS: INSULIN GLARGINE SYRINGE. SQ SCH (21:00)
[2021-09-26] MEDS: DULoxetine HCL 30 MG CAPSULE.DR PO SCH (22:20)
[2021-09-26] MEDS: ATORVASTATIN CALCIUM 20 MG TABLET PO SCH (22:21)
[2021-09-26] MEDS: LATANOPROST 0.005% OPHTH SOLUTION 2.5ML BOTTLE. OU SCH (22:21)
[2021-09-26 23:55] VITALS: BP 130/67
[2021-09-27 03:29] VITALS: BP 119/56
[2021-09-27 07:00] VITALS: BP 154/95
[2021-09-27] MEDS: INSULIN LISPRO 300 UNITS/3 ML VIAL. SQ SCH ×3 (08:00→17:01)
[2021-09-27] MEDS: buPROPion SR 150 MG TABLET.SA PO SCH (08:45)
[2021-09-27] MEDS: FUROSEMIDE 40 MG/4 ML VIAL. IVP SCH (08:45)
[2021-09-27] MEDS: ASPIRIN ENTERIC COATED 81 MG TABLET.DR. PO SCH (08:45)
[2021-09-27] MEDS: CETIRIZINE HCL 10 MG TABLET. PO SCH (08:46)
[2021-09-27] MEDS: METOPROLOL TART IMMED RELEASE 50 MG TABLET. PO SCH ×2 (08:46→21:58)
[2021-09-27] MEDS: methylPREDNISolone SOD SUCC PF 40 MG/ML VIAL. IV SCH ×2 (08:47→21:58)
[2021-09-27] MEDS: ISOSORBIDE MONONITRATE ER 30 MG TAB.ER.24H PO SCH (09:00)
[2021-09-27] MEDS: FLUTICASONE 50MCG/NASAL SPRAY 16GM BOTTLE. NS SCH (09:00)
[2021-09-27 09:03] LABS: BASO % 0 % (0-3); EOS % 0 % (0-3); HEMATOCRIT 38.4 % (36.0-47.0); HEMOGLOBIN 11.9 g/dL (12.0-15.5); LYMPH # 0.4 x10^3/uL (1.0-4.8); LYMPH % 4 % (24-48); MEAN CORPUSCULAR HEMOGLOBIN 24 pg (25-35); MEAN CORPUSCULAR HGB CONC 31 g/dL (31-37); MEAN CORPUSCULAR VOLUME 76 fL (79-100); MONO # 0.2 x10^3/uL (0.0-1.1); MONO % 2 % (0-9); NEUT # 8.3 x10^3/uL (1.8-7.7); NEUT % 93 % (31-73); PLATELET COUNT 329 x10^3/uL (140-400); RED BLOOD COUNT 5.06 x10^6/uL (3.50-5.40); RED CELL DISTRIBUTION WIDTH 19.4 % (11.5-14.5); WHITE BLOOD COUNT 8.8 x10^3/uL (4.0-11.0)
[2021-09-27] MEDS: IPRATRPIUM/ALBUTEROL 0.5/2.5MG 3 ML NEBU. NEB SCH ×4 (09:03→20:05)
[2021-09-27 09:11] LABS: PROTHROMBIN TIME PATIENT 20.5 SEC (11.7-14.0)
[2021-09-27 09:23] LABS: CALCIUM 8.2 mg/dL (8.5-10.1); CREATININE 1.2 mg/dL (0.6-1.0); GFR 43.8
--- NOTE | 2021-09-27 09:35 | PDOC ---
PULMONARY PROGRESS NOTES DATE: 09/27/21 TIME: 09:35 Vitals Vital Signs Date Time Temp Pulse Resp B/P (MAP) Pulse Ox O2 Delivery O2 Flow Rate FiO2 09/27/21 09:03 Nasal Cannula 1.0 09/27/21 09:00 92 154/95 09/27/21 07:00 97.7 18 93 97.7 General: Alert Lungs: Crackles, Other (Decreased breath sounds) Cardiovascular: S1, S2 Abdomen: Soft Extremities: No Edema Labs Laboratory Tests Test 09/25/21 12:50 09/25/21 13:15 09/25/21 13:55 09/25/21 17:34 White Blood Count 9.0 x10^3/uL (4.0-11.0) Red Blood Count 5.38 x10^6/uL (3.50-5.40) Hemoglobin 12.9 g/dL (12.0-15.5) Hematocrit 40.6 % (36.0-47.0) Mean Corpuscular Volume 75 fL (79-100) Mean Corpuscular Hemoglobin 24 pg (25-35) Mean Corpuscular Hemoglobin Concent 32 g/dL (31-37) Red Cell Distribution Width 19.6 % (11.5-14.5) Platelet Count 340 x10^3/uL (140-400) Neutrophils (%) (Auto) 78 % (31-73) Lymphocytes (%) (Auto) 11 % (24-48) Monocytes (%) (Auto) 8 % (0-9) Eosinophils (%) (Auto) 2 % (0-3) Basophils (%) (Auto) 1 % (0-3) Neutrophils # (Auto) 7.1 x10^3/uL (1.8-7.7) Lymphocytes # (Auto) 1.0 x10^3/uL (1.0-4.8) Monocytes # (Auto) 0.7 x10^3/uL (0.0-1.1) Eosinophils # (Auto) 0.2 x10^3/uL (0.0-0.7) Basophils # (Auto) 0.1 x10^3/uL (0.0-0.2) Sodium Level 141 mmol/L (136-145) Potassium Level 3.7 mmol/L (3.5-5.1) Chloride Level 101 mmol/L (98-107) Carbon Dioxide Level 32 mmol/L (21-32) Anion Gap 8 (6-14) Blood Urea Nitrogen 18 mg/dL (7-20) Creatinine 1.2 mg/dL (0.6-1.0) Estimated GFR (Cockcroft-Gault) 43.8 BUN/Creatinine Ratio 15 (6-20) Glucose Level 65 mg/dL (70-99) Lactic Acid Level 1.9 mmol/L (0.4-2.0) Calcium Level 8.3 mg/dL (8.5-10.1) Magnesium Level 2.1 mg/dL (1.8-2.4) Total Bilirubin 0.7 mg/dL (0.2-1.0) Aspartate Amino Transf (AST/SGOT) 19 U/L (15-37) Alanine Aminotransferase (ALT/SGPT) 19 U/L (14-59) Alkaline Phosphatase 109 U/L (46-116) Creatine Kinase 99 U/L (26-192) Creatine Kinase MB (Mass) 1.5 ng/mL (0.0-3.6) Creatine Kinase MB Relative Index 1.5 % (0-4) Troponin I High Sensitivity 8 ng/L (4-50) GM-Gow-H-Type Natriuretic Peptide 977 pg/mL (0-449) Total Protein 7.0 g/dL (6.4-8.2) Albumin 3.2 g/dL (3.4-5.0) Albumin/Globulin Ratio 0.8 (1.0-1.7) Influenza Type A Antigen Negative (NEGATIVE) Influenza Type B Antigen Negative (NEGATIVE) SARS-CoV-2 RNA (ALEXA) Negative (Negative) SARS-CoV-2 Antigen (Rapid) Negative (NEGATIVE) Test 09/25/21 21:46 09/26/21 04:30 09/26/21 06:55 09/26/21 08:44 Glucose (Fingerstick) 237 mg/dL (70-99) 210 mg/dL (70-99) White Blood Count 7.8 x10^3/uL (4.0-11.0) Red Blood Count 5.13 x10^6/uL (3.50-5.40) Hemoglobin 12.1 g/dL (12.0-15.5) Hematocrit 39.0 % (36.0-47.0) Mean Corpuscular Volume 76 fL (79-100) Mean Corpuscular Hemoglobin 24 pg (25-35) Mean Corpuscular Hemoglobin Concent 31 g/dL (31-37) Red Cell Distribution Width 19.2 % (11.5-14.5) Platelet Count 309 x10^3/uL (140-400) Neutrophils (%) (Auto) 92 % (31-73) Lymphocytes (%) (Auto) 6 % (24-48) Monocytes (%) (Auto) 2 % (0-9) Eosinophils (%) (Auto) 0 % (0-3) Basophils (%) (Auto) 0 % (0-3) Neutrophils # (Auto) 7.2 x10^3/uL (1.8-7.7) Lymphocytes # (Auto) 0.4 x10^3/uL (1.0-4.8) Monocytes # (Auto) 0.2 x10^3/uL (0.0-1.1) Eosinophils # (Auto) 0.0 x10^3/uL (0.0-0.7) Basophils # (Auto) 0.0 x10^3/uL (0.0-0.2) Sodium Level 139 mmol/L (136-145) Potassium Level 4.5 mmol/L (3.5-5.1) Chloride Level 101 mmol/L (98-107) Carbon Dioxide Level 28 mmol/L (21-32) Anion Gap 10 (6-14) Blood Urea Nitrogen 23 mg/dL (7-20) Creatinine 1.3 mg/dL (0.6-1.0) Estimated GFR (Cockcroft-Gault) 39.9 Glucose Level 223 mg/dL (70-99) Calcium Level 8.1 mg/dL (8.5-10.1) Troponin I High Sensitivity 7 ng/L (4-50) Prothrombin Time 22.5 SEC (11.7-14.0) Prothromb Time International Ratio 2.0 (0.8-1.1) Test 09/26/21 11:26 09/26/21 16:38 09/26/21 20:16 09/27/21 07:27 Glucose (Fingerstick) 279 mg/dL (70-99) 174 mg/dL (70-99) 279 mg/dL (70-99) 338 mg/dL (70-99) Test 09/27/21 08:30 White Blood Count 8.8 x10^3/uL (4.0-11.0) Red Blood Count 5.06 x10^6/uL (3.50-5.40) Hemoglobin 11.9 g/dL (12.0-15.5) Hematocrit 38.4 % (36.0-47.0) Mean Corpuscular Volume 76 fL (79-100) Mean Corpuscular Hemoglobin 24 pg (25-35) Mean Corpuscular Hemoglobin Concent 31 g/dL (31-37) Red Cell Distribution Width 19.4 % (11.5-14.5) Platelet Count 329 x10^3/uL (140-400) Neutrophils (%) (Auto) 93 % (31-73) Lymphocytes (%) (Auto) 4 % (24-48) Monocytes (%) (Auto) 2 % (0-9) Eosinophils (%) (Auto) 0 % (0-3) Basophils (%) (Auto) 0 % (0-3) Neutrophils # (Auto) 8.3 x10^3/uL (1.8-7.7) Lymphocytes # (Auto) 0.4 x10^3/uL (1.0-4.8) Monocytes # (Auto) 0.2 x10^3/uL (0.0-1.1) Eosinophils # (Auto) 0.0 x10^3/uL (0.0-0.7) Basophils # (Auto) 0.0 x10^3/uL (0.0-0.2) Prothrombin Time 20.5 SEC (11.7-14.0) Prothromb Time International Ratio 1.8 (0.8-1.1) Sodium Level 137 mmol/L (136-145) Potassium Level 5.0 mmol/L (3.5-5.1) Chloride Level 99 mmol/L (98-107) Carbon Dioxide Level 32 mmol/L (21-32) Anion Gap 6 (6-14) Blood Urea Nitrogen 26 mg/dL (7-20) Creatinine 1.2 mg/dL (0.6-1.0) Estimated GFR (Cockcroft-Gault) 43.8 Glucose Level 298 mg/dL (70-99) Calcium Level 8.2 mg/dL (8.5-10.1) Laboratory Tests Test 09/26/21 11:26 09/26/21 16:38 09/26/21 20:16 09/27/21 07:27 Glucose (Fingerstick) 279 mg/dL (70-99) 174 mg/dL (70-99) 279 mg/dL (70-99) 338 mg/dL (70-99) Test 09/27/21 08:30 White Blood Count 8.8 x10^3/uL (4.0-11.0) Red Blood Count 5.06 x10^6/uL (3.50-5.40) Hemoglobin 11.9 g/dL (12.0-15.5) Hematocrit 38.4 % (36.0-47.0) Mean Corpuscular Volume 76 fL (79-100) Mean Corpuscular Hemoglobin 24 pg (25-35) Mean Corpuscular Hemoglobin Concent 31 g/dL (31-37) Red Cell Distribution Width 19.4 % (11.5-14.5) Platelet Count 329 x10^3/uL (140-400) Neutrophils (%) (Auto) 93 % (31-73) Lymphocytes (%) (Auto) 4 % (24-48) Monocytes (%) (Auto) 2 % (0-9) Eosinophils (%) (Auto) 0 % (0-3) Basophils (%) (Auto) 0 % (0-3) Neutrophils # (Auto) 8.3 x10^3/uL (1.8-7.7) Lymphocytes # (Auto) 0.4 x10^3/uL (1.0-4.8) Monocytes # (Auto) 0.2 x10^3/uL (0.0-1.1) Eosinophils # (Auto) 0.0 x10^3/uL (0.0-0.7) Basophils # (Auto) 0.0 x10^3/uL (0.0-0.2) Prothrombin Time 20.5 SEC (11.7-14.0) Prothromb Time International Ratio 1.8 (0.8-1.1) Sodium Level 137 mmol/L (136-145) Potassium Level 5.0 mmol/L (3.5-5.1) Chloride Level 99 mmol/L (98-107) Carbon Dioxide Level 32 mmol/L (21-32) Anion Gap 6 (6-14) Blood Urea Nitrogen 26 mg/dL (7-20) Creatinine 1.2 mg/dL (0.6-1.0) Estimated GFR (Cockcroft-Gault) 43.8 Glucose Level 298 mg/dL (70-99) Calcium Level 8.2 mg/dL (8.5-10.1) Medications Active Scripts Medications Dose Route/Sig Max Daily Dose Days Date Category Dose Instructions Siltussin Sa (Guaifenesin) 100 Mg/5 Ml Liquid 20 Ml PO PRN Q6HRS PRN 09/25/21 Reported Albuterol Sulfate Neb Soln (Albuterol Sulfate) 1.25 Mg/3 Ml Vial.neb 1 Vial NEB PRN Q4HRS PRN 09/25/21 Reported Eucerin Advanced Repair (Emollient Combination No.114) 85 Gm Cream..g. 85 Gm TP DAILY 09/25/21 Reported Klor-Con M20 (Potassium Chloride) 20 Meq Tab.er.prt 1 Tab PO DAILY 30 09/25/21 Reported Lasix (Furosemide) 40 Mg Tablet 1 Tab PO NOON 5 09/25/21 Reported Lasix (Furosemide) 40 Mg Tablet 1 Tab PO DAILY 30 09/25/21 Reported Cymbalta (Duloxetine Hcl) 60 Mg Capsule.dr 1 Cap PO HS 09/25/21 Reported Albuterol Sulfate Conc Neb Soln (Albuterol Sulfate) 2.5 Mg/0.5 Ml Vial.neb 1 Vial NEB Q4HRS 7 09/25/21 Reported Latanoprost 0.005% Eye Drop (Latanoprost/Pf) 7.5 Ml Drops 1 Drop OU QHS 09/25/21 Reported Lisinopril 40 Mg Tablet 1 Tab PO DAILY 09/25/21 Reported Hydralazine Hcl 100 Mg Tablet 1 Tab PO TID 09/25/21 Reported Warfarin Sodium 1 Mg Tablet 1 Mg PO DAILY 09/25/21 Reported give with 6 mg tab Nystop (Nystatin) 60 Gm Powder 1 Bernardo TP BID 30 03/09/20 Rx Amlodipine Besylate 10 Mg Tablet 10 Mg PO DAILY 30 03/09/20 Rx Isosorbide Mononitrate Er (Isosorbide Mononitrate) 30 Mg Tab.er.24h 30 Mg PO DAILY 30 03/09/20 Rx Metoprolol Tartrate 50 Mg Tablet 50 Mg PO BID 30 03/09/20 Rx Ventolin Hfa Inhaler (Albuterol Sulfate) 18 Gm Hfa.aer.ad 2 Puff INH Q4HRS PRN 02/24/20 Reported Combivent Respimat Inhal (Ipratropium/Albuterol Sulfate) 4 Gm Aer.w.adap 2 Inh IH QID 02/24/20 Reported Loratadine 10 Mg Tablet 10 Mg PO DAILY 02/24/20 Reported Loperamide (Loperamide Hcl) 2 Mg Tablet 2 Mg PO PRN Q4HRS PRN 02/24/20 Reported Atorvastatin Calcium 20 Mg Tablet 20 Mg PO QHS 30 05/24/19 Rx Tylenol (Acetaminophen) 325 Mg Tablet 650 Mg PO PRN Q6HRS PRN 30 05/24/19 Rx Coumadin (Warfarin Sodium) 3 Mg Tablet 6 Mg PO DAILY16 30 05/24/19 Rx Wellbutrin Sr (Bupropion Hcl) 150 Mg Tablet.er 150 Mg PO DAILY 05/21/19 Reported Novolog (Insulin Aspart) 100 Unit/1 Ml Cartridge 15 Unit SQ TID 05/21/19 Reported Aspirin Ec (Aspirin) 81 Mg Tablet.dr 1 Tab PO DAILY 05/21/19 Reported Fluticasone Propionate Nasal [place] (Fluticasone Propionate) 16 Gm [place].susp 2 [place] NS DAILY 06/23/15 Reported Vitamin D2 (Ergocalciferol (Vitamin D2)) 50,000 Unit Capsule 1 Cap PO QSA 06/23/15 Reported Impression . Full note dictated acute on chronic diastolic heart failure possible discharge in the next 24 to 48 hours MOIRA GEORGE MD Sep 27, 2021 09:35
[2021-09-27 11:00] VITALS: BP 127/65
[2021-09-27 11:08] LABS: % BANDS 1 % (0-9); % LYMPHS 4 % (24-48); % MONOS 1 % (0-10); % SEGS 94 % (35-66); PLT ESTIMATE ADEQUATE (ADEQUATE)
--- NOTE | 2021-09-27 12:26 | PDOC ---
[employer] PROGRESS NOTE Date of Service DOS: DATE: 09/27/21 TIME: 12:24 Chief Complaint Chief Complaint COPD Respiratory failure ANN MARIE Morbid obesity Cough Hypertension Hyperlipidemia A. fib COPD CHF Depression Anxiety Diabetes Mass in right cerebellum History of left basal ganglia lacunar infarct History of Present Illness History of Present Illness 09/27/2021 Patient seen in exam Discussed with RN Chart reviewed Has O2 per nasal cannula Diuresing well Getting nebulizers and steroids etc. Overall slowly improving 09/26/2021 Patient seen and examined She is up in the chair on oxygen appears very weak In moderate respiratory distress On oxygen per nasal cannula Discussed with RN Chart reviewed Vitals/I&O Vitals/I&O: Vital Signs Date Time Temp Pulse Resp B/P (MAP) Pulse Ox O2 Delivery O2 Flow Rate FiO2 09/27/21 11:00 97.5 82 18 127/65 (85) 95 Nasal Cannula 3.0 97.5 I & O 09/26/21 09/26/21 09/27/21 15:00 23:00 07:00 Intake Total 480 ml 240 ml Output Total 300 ml 450 ml Balance -300 ml 480 ml -210 ml Physical Exam General: Alert, Cooperative, mild distress Heart: Regular rate Lungs: Crackles, Other (Decreased breath sounds) Abdomen: Normal bowel sounds, Soft, No tenderness, No hepatosplenomegaly, No m asses, Other (Obese) Extremities: No clubbing, No cyanosis, Normal pulses, No tenderness/swelling, Other (2+ edema) Skin: No rashes, No breakdown, No significant lesion Labs Labs: Laboratory Tests Test 09/26/21 16:38 09/26/21 20:16 09/27/21 07:27 09/27/21 08:30 Glucose (Fingerstick) 174 mg/dL (70-99) 279 mg/dL (70-99) 338 mg/dL (70-99) White Blood Count 8.8 x10^3/uL (4.0-11.0) Red Blood Count 5.06 x10^6/uL (3.50-5.40) Hemoglobin 11.9 g/dL (12.0-15.5) Hematocrit 38.4 % (36.0-47.0) Mean Corpuscular Volume 76 fL (79-100) Mean Corpuscular Hemoglobin 24 pg (25-35) Mean Corpuscular Hemoglobin Concent 31 g/dL (31-37) Red Cell Distribution Width 19.4 % (11.5-14.5) Platelet Count 329 x10^3/uL (140-400) Neutrophils (%) (Auto) 93 % (31-73) Lymphocytes (%) (Auto) 4 % (24-48) Monocytes (%) (Auto) 2 % (0-9) Eosinophils (%) (Auto) 0 % (0-3) Basophils (%) (Auto) 0 % (0-3) Neutrophils # (Auto) 8.3 x10^3/uL (1.8-7.7) Lymphocytes # (Auto) 0.4 x10^3/uL (1.0-4.8) Monocytes # (Auto) 0.2 x10^3/uL (0.0-1.1) Eosinophils # (Auto) 0.0 x10^3/uL (0.0-0.7) Basophils # (Auto) 0.0 x10^3/uL (0.0-0.2) Segmented Neutrophils % 94 % (35-66) Band Neutrophils % 1 % (0-9) Lymphocytes % 4 % (24-48) Monocytes % 1 % (0-10) Platelet Estimate Adequate (ADEQUATE) Prothrombin Time 20.5 SEC (11.7-14.0) Prothromb Time International Ratio 1.8 (0.8-1.1) Sodium Level 137 mmol/L (136-145) Potassium Level 5.0 mmol/L (3.5-5.1) Chloride Level 99 mmol/L (98-107) Carbon Dioxide Level 32 mmol/L (21-32) Anion Gap 6 (6-14) Blood Urea Nitrogen 26 mg/dL (7-20) Creatinine 1.2 mg/dL (0.6-1.0) Estimated GFR (Cockcroft-Gault) 43.8 Glucose Level 298 mg/dL (70-99) Calcium Level 8.2 mg/dL (8.5-10.1) Test 09/27/21 11:23 Glucose (Fingerstick) 329 mg/dL (70-99) Assessment and Plan Assessmemt and Plan Problems Medical Problems: (1) COPD exacerbation Status: Acute (2) Hypoxia Status: Acute COPD Respiratory failure ANN MARIE Morbid obesity Cough Hypertension Hyperlipidemia A. fib COPD CHF Depression Anxiety Diabetes Mass in right cerebellum History of left basal ganglia lacunar infarct Plan IV steroids Cardiac monitoring Lasix IV antibiotics Beta agonist Steroids Oxygen Pulmonary following Home meds Trend labs Encourage p.o. intake DVT prophylaxis Full code half-way unit evaluation Long-term prognosis guarded Comment Review of Relevant I have reviewed the following items raman (where applicable) has been applied. Medications: Current Medications Medications (Trade) Dose Ordered Sig/Shikha Route PRN Reason Start Time Stop Time Status Last Admin Dose Admin Atorvastatin Calcium (Lipitor) 20 mg QHS PO 09/26/21 21:00 09/26/21 22:21 Warfarin Sodium (Coumadin) 6 mg DAILY16 PO 09/26/21 16:00 09/26/21 15:59 Duloxetine HCl (Cymbalta) 60 mg HS PO 09/26/21 21:00 09/26/21 22:20 Latanoprost (Xalatan) 1 drop QHS OU 09/26/21 21:00 09/26/21 22:21 Insulin Glargine (Lantus Syringe) 10 unit QHS SQ 09/26/21 21:00 09/26/21 21:00 Albuterol/ Ipratropium (Duoneb) 3 ml RTQID NEB 09/26/21 16:00 09/27/21 09:03 Methylprednisolone Sodium Succinate (SOLU-Medrol 40MG VIAL) 40 mg BID IV 09/26/21 14:00 09/27/21 08:47 Ceftriaxone Sodium (Rocephin) 1 gm Q24H IVP 09/26/21 14:00 09/26/21 16:03 Furosemide (Lasix) 40 mg DAILY IVP 09/26/21 14:00 09/27/21 08:45 Warfarin Sodium (Coumadin) 1 mg DAILY16 PO 09/26/21 16:00 09/26/21 15:58 Justifications for Admission Other Justification NANCY MAHONEY III DO Sep 27, 2021 12:26
--- NOTE | 2021-09-27 12:27 | SNU/HH DC ---
DISCHARGE ORDERS DISCHARGE INFORMATION: FINAL DIAGNOSIS Problems Medical Problems: (1) COPD exacerbation Status: Acute (2) Hypoxia Status: Acute CONDITION ON DISCHARGE: Stable CODE STATUS: Code Status: Full NURSING HOME: SNF STAY <30 DAYS: Yes HOSPICE: HOSPICE: No HOSPICE EVAL & TREAT: No LTAC: ADMIT TO LTAC: No POST DISCHARGE ORDERS: ACTIVITY ORDERS: Activity as tolerated WEIGHT BEARING STATUS: No restrictions DIET AFTER DISCHARGE: ADA CHECKS AFTER DISCHARGE: CHECKS AFTER DISCHARGE: Check blood press - daily, Check blood sugar, ac/hs TREATMENT/EQUIPMENT ORDERS: ADAPTIVE EQUIPMENT NEEDED: Walker RESPIRATORY EQUIPMENT NEEDED: Nebulizer Physical Therapy For: Evalulation/Treatment Occupational Therapy For: Evaluation/Treatment Speech Language Pathology For: Evaluation/Treatment DISCHARGE MEDICATIONS: Home Meds Active Scripts Nystatin (NYSTOP) 60 Gm Powder, 1 ANDREIA TP BID for intertrigo for 30 Days, #30 MISC Prov:SHARRON GRUBBS MD 03/09/20 Amlodipine Besylate (AMLODIPINE BESYLATE) 10 Mg Tablet, 10 MG PO DAILY for HTN for 30 Days, #30 TAB Prov:SHARRON GRUBBS MD 03/09/20 Isosorbide Mononitrate (ISOSORBIDE MONONITRATE ER) 30 Mg Tab.er.24h, 30 MG PO DAILY for HTN for 30 Days, #30 TAB.SR Prov:SHARRON GRUBBS MD 03/09/20 Metoprolol Tartrate (METOPROLOL TARTRATE) 50 Mg Tablet, 50 MG PO BID for FOR HYPERTENSION for 30 Days, #60 TAB 0 Refills Prov:SHARRON GRUBBS MD 03/09/20 Atorvastatin Calcium (ATORVASTATIN CALCIUM) 20 Mg Tablet, 20 MG PO QHS for cholesterol for 30 Days, #30 TAB Prov:Evelin RUIZ MD 05/24/19 Acetaminophen (TYLENOL) 325 Mg Tablet, 650 MG PO PRN Q6HRS PRN for PAIN for 30 Days, #100 TAB Prov:Evelin RUIZ MD 05/24/19 Warfarin Sodium (COUMADIN) 3 Mg Tablet, 6 MG PO DAILY16 for afib for 30 Days, #60 TAB Prov:Evelin RUIZ MD 05/24/19 Reported Medications Guaifenesin (SILTUSSIN SA) 100 Mg/5 Ml Liquid, 20 ML PO PRN Q6HRS PRN for COUGH, LIQUID 09/25/21 Albuterol Sulfate (ALBUTEROL SULFATE NEB SOLN) 1.25 Mg/3 Ml Vial.neb, 1 VIAL NEB PRN Q4HRS PRN for SHORTNESS OF BREATH, #150 ML 09/25/21 Emollient Combination No.114 (Eucerin Advanced Repair) 85 Gm Cream..g., 85 GM TP DAILY for ble dry, EACH 09/25/21 Potassium Chloride (KLOR-CON M20) 20 Meq Tab.er.prt, 1 TAB PO DAILY for supplement for 30 Days, #30 TAB 0 Refills 09/25/21 Furosemide (LASIX) 40 Mg Tablet, 1 TAB PO NOON for diuretic for 5 Days, #5 TAB 0 Refills 09/25/21 Furosemide (LASIX) 40 Mg Tablet, 1 TAB PO DAILY for diuretic for 30 Days, #30 TAB 0 Refills 09/25/21 Duloxetine Hcl (CYMBALTA) 60 Mg Capsule.dr, 1 CAP PO HS for depression, #90 CAP 3 Refills 09/25/21 Albuterol Sulfate (ALBUTEROL SULFATE CONC NEB SOLN) 2.5 Mg/0.5 Ml Vial.neb, 1 VIAL NEB Q4HRS for copd for 7 Days, #120 VIAL 5 Refills 09/25/21 Latanoprost/Pf (Latanoprost 0.005% Eye Drop) 7.5 Ml Drops, 1 DROP OU QHS for GLAUCOMA, DROP 09/25/21 Lisinopril (LISINOPRIL) 40 Mg Tablet, 1 TAB PO DAILY for htn, #30 TAB 5 Refills 09/25/21 Hydralazine Hcl (HYDRALAZINE HCL) 100 Mg Tablet, 1 TAB PO TID for blood pressure, #90 TAB 5 Refills 09/25/21 Warfarin Sodium (WARFARIN SODIUM) 1 Mg Tablet, 1 MG PO DAILY for blood thinner, TAB give with 6 mg tab 09/25/21 Albuterol Sulfate (VENTOLIN HFA INHALER) 18 Gm Hfa.aer.ad, 2 PUFF INH Q4HRS PRN for SHORTNESS OF BREATH, INHALER 0 Refills 02/24/20 Ipratropium/Albuterol Sulfate (COMBIVENT RESPIMAT INHAL) 4 Gm Aer.w.adap, 2 INH IH QID for copd, INHALER 02/24/20 Loratadine (LORATADINE) 10 Mg Tablet, 10 MG PO DAILY for allergies, TAB 02/24/20 Loperamide Hcl (LOPERAMIDE) 2 Mg Tablet, 2 MG PO PRN Q4HRS PRN for DIARRHEA, TAB 02/24/20 Bupropion Hcl (WELLBUTRIN SR) 150 Mg Tablet.er, 150 MG PO DAILY for antidepresant, TAB.SR 05/21/19 Insulin Aspart (NOVOLOG) 100 Unit/1 Ml Cartridge, 15 UNIT SQ TID for glucose control, EACH 05/21/19 Aspirin (ASPIRIN EC) 81 Mg Tablet.dr, 1 TAB PO DAILY for circulations, #30 TAB 3 Refills 05/21/19 Fluticasone Propionate (FLUTICASONE PROPIONATE NASAL SPRAY) 16 Gm [place].susp, 2 SPRAY NS DAILY for asthma, #1 INHALER 11 Refills 06/23/15 Ergocalciferol (Vitamin D2) (VITAMIN D2) 50,000 Unit Capsule, 1 CAP PO QSA for supplement, #4 CAP 5 Refills 06/23/15 NANCY MAHONEY III DO Sep 27, 2021 12:27
--- NOTE | 2021-09-27 12:33 | NUR ---
Pharmacy Warfarin Dosing Note S:Pharmacy consulted to assist with anticoagulation therapy started with target INR: 2 -3 O:MICHAELA COOPER is a 76 year old F with Atrial Fibrillation LABS: Last INR: 1.8 Last HGB: 11.9 Last HCT: 38.4 Last PLT: 329 Last dose of 7 mg given on 09/26/21 at 1559 Previous Regimen: 7 mg daily Vitamin K given: N Drug Interaction Changes: None Ongoing Drug Interactions: n/a A:INR of 1.8 is below desired range. Target range for this patient is: 2 -3 P: Warfarin dose: 7 MG Today at 1600 [address] Therapy: none Next INR due 09/28/21 Pharmacy anticoagulation service will continue to follow. LEXY DUMONT [facility], 09/27/21 [id number]
--- NOTE | 2021-09-27 13:32 | NUR ---
SW following. Discussed with RN, pt from [facility], 1L, ada diet. Flu and COVID-19 negative. Therapy recommending return to assisted living. Pulmonology following. SW will continue to follow.
[2021-09-27] MEDS: cefTRIAXone IV Push 1 GM VIAL. IVP SCH (13:50)
[2021-09-27 15:00] VITALS: BP 152/79
[2021-09-27] MEDS: WARFARIN 3 MG TABLET. PO SCH (16:58)
[2021-09-27] MEDS: WARFARIN 1 MG TABLET. PO SCH (16:59)
[2021-09-27 19:00] VITALS: BP 141/77
[2021-09-27] MEDS: DULoxetine HCL 30 MG CAPSULE.DR PO SCH (21:56)
[2021-09-27] MEDS: LACTOBACILLUS RHAMNOSUS GG 1 CAPSULE. PO SCH (21:57)
[2021-09-27] MEDS: ATORVASTATIN CALCIUM 20 MG TABLET PO SCH (21:57)
[2021-09-27] MEDS: LATANOPROST 0.005% OPHTH SOLUTION 2.5ML BOTTLE. OU SCH (21:58)
[2021-09-27 23:00] VITALS: BP 149/74
[2021-09-28] MEDS: INSULIN GLARGINE SYRINGE. SQ SCH (00:13)
--- NOTE | 2021-09-28 00:36 | CONS ---
DATE OF CONSULTATION: 09/27/2021 ATTENDING PHYSICIAN: Darwin Braden MD REASON FOR CONSULTATION: The patient is seen in pulmonary consultation at the request of Dr. Anderson for increasing shortness of breath. HISTORY OF PRESENT ILLNESS: The patient is a 76-year-old female with a history of hypertension; hyperlipidemia; AFib; obesity; congestive heart failure; cardiomyopathy; has never really smoked, presented to the Emergency Room from assisted living facility. She was brought in because she got progressively short of air for the past 2 days. She tested negative for COVID-19. Not very hypoxic, but was dyspneic. The patient states that she has had increasing lower extremity edema and paroxysmal nocturnal dyspnea. She normally does not wear oxygen at home. She has never had a sleep study. She does complain of excessive daytime sleepiness. PAST MEDICAL HISTORY: AFib, hypertension, hyperlipidemia, vitamin B12 deficiency, depression, chronic renal insufficiency, and type 2 diabetes. PAST SURGICAL HISTORY: Status post appendectomy, cholecystectomy, tubal ligation, and hysterectomy. FAMILY HISTORY: Diabetes. SOCIAL HISTORY: Occasionally uses marijuana, never truly smoked. REVIEW OF SYSTEMS: As indicated above, otherwise a 10-point system was reviewed and negative. CURRENT MEDICATIONS: List was reviewed. She is currently on albuterol. She is on ceftriaxone and multiple other medications including IV furosemide, warfarin, and Solu-Medrol. PHYSICAL EXAMINATION: VITAL SIGNS: Stable. O2 saturation was greater than 92%, currently on 2 liters of oxygen supplementation. HEENT: Eyes: The sclerae were nonicteric. NECK: Jugular venous distention was not elevated. No lymphadenopathy. CHEST: Full expansion. LUNGS:. Adequate air flow with no wheezes. CARDIOVASCULAR: Regular rate and rhythm with S1, S2, no S3. ABDOMEN: Soft. EXTREMITIES: No clubbing, cyanosis or edema. IMPRESSION: 1. Progressive dyspnea secondary to acute on chronic diastolic heart failure. 2. Lower extremity edema secondary to above. 3. Cellulitis of the lower extremities. 4. Atrial fibrillation. 5. Ischemic cardiomyopathy. 6. Depression. 7. Type 2 diabetes. PLAN: 1. Recommend continue current IV diuresis. 2. The patient did not smoke for a prolonged period of time. I am not sure if she truly has COPD, she only tried smoking when she was a teenager. 3. Continue steroids and antibiotics for lower extremity cellulitis. Could possibly be discharged in the next 24-48 hours. GIDEON/ARACELI/AMI DR: Drew TID: [id number]
[2021-09-28 03:00] VITALS: BP 154/88
[2021-09-28 07:00] VITALS: BP 176/92
[2021-09-28] MEDS: IPRATRPIUM/ALBUTEROL 0.5/2.5MG 3 ML NEBU. NEB SCH ×3 (08:06→15:33)
--- NOTE | 2021-09-28 08:16 | PDOC ---
PULMONARY PROGRESS NOTES DATE: 09/28/21 TIME: 08:16 Subjective Patient feels less short of air. Vitals Vital Signs Date Time Temp Pulse Resp B/P (MAP) Pulse Ox O2 Delivery O2 Flow Rate FiO2 09/28/21 08:06 96 Nasal Cannula 1.0 09/28/21 03:00 97.5 83 20 154/88 (110) 97.5 ROS: No Nausea, No Chest Pain, No Abdominal Pain, No Increase Cough General: Alert Lungs: Crackles Cardiovascular: S1, S2 Abdomen: Soft Neuro Exam: Alert Extremities: No Edema Skin: Warm Labs Laboratory Tests Test 09/26/21 08:44 09/26/21 11:26 09/26/21 16:38 09/26/21 20:16 Glucose (Fingerstick) 210 mg/dL (70-99) 279 mg/dL (70-99) 174 mg/dL (70-99) 279 mg/dL (70-99) Test 09/27/21 07:27 09/27/21 08:30 09/27/21 11:23 09/27/21 16:30 Glucose (Fingerstick) 338 mg/dL (70-99) 329 mg/dL (70-99) 339 mg/dL (70-99) White Blood Count 8.8 x10^3/uL (4.0-11.0) Red Blood Count 5.06 x10^6/uL (3.50-5.40) Hemoglobin 11.9 g/dL (12.0-15.5) Hematocrit 38.4 % (36.0-47.0) Mean Corpuscular Volume 76 fL (79-100) Mean Corpuscular Hemoglobin 24 pg (25-35) Mean Corpuscular Hemoglobin Concent 31 g/dL (31-37) Red Cell Distribution Width 19.4 % (11.5-14.5) Platelet Count 329 x10^3/uL (140-400) Neutrophils (%) (Auto) 93 % (31-73) Lymphocytes (%) (Auto) 4 % (24-48) Monocytes (%) (Auto) 2 % (0-9) Eosinophils (%) (Auto) 0 % (0-3) Basophils (%) (Auto) 0 % (0-3) Neutrophils # (Auto) 8.3 x10^3/uL (1.8-7.7) Lymphocytes # (Auto) 0.4 x10^3/uL (1.0-4.8) Monocytes # (Auto) 0.2 x10^3/uL (0.0-1.1) Eosinophils # (Auto) 0.0 x10^3/uL (0.0-0.7) Basophils # (Auto) 0.0 x10^3/uL (0.0-0.2) Segmented Neutrophils % 94 % (35-66) Band Neutrophils % 1 % (0-9) Lymphocytes % 4 % (24-48) Monocytes % 1 % (0-10) Platelet Estimate Adequate (ADEQUATE) Prothrombin Time 20.5 SEC (11.7-14.0) Prothromb Time International Ratio 1.8 (0.8-1.1) Sodium Level 137 mmol/L (136-145) Potassium Level 5.0 mmol/L (3.5-5.1) Chloride Level 99 mmol/L (98-107) Carbon Dioxide Level 32 mmol/L (21-32) Anion Gap 6 (6-14) Blood Urea Nitrogen 26 mg/dL (7-20) Creatinine 1.2 mg/dL (0.6-1.0) Estimated GFR (Cockcroft-Gault) 43.8 Glucose Level 298 mg/dL (70-99) Calcium Level 8.2 mg/dL (8.5-10.1) Test 09/27/21 20:14 09/28/21 07:42 Glucose (Fingerstick) 369 mg/dL (70-99) 312 mg/dL (70-99) Laboratory Tests Test 09/27/21 08:30 09/27/21 11:23 09/27/21 16:30 09/27/21 20:14 White Blood Count 8.8 x10^3/uL (4.0-11.0) Red Blood Count 5.06 x10^6/uL (3.50-5.40) Hemoglobin 11.9 g/dL (12.0-15.5) Hematocrit 38.4 % (36.0-47.0) Mean Corpuscular Volume 76 fL (79-100) Mean Corpuscular Hemoglobin 24 pg (25-35) Mean Corpuscular Hemoglobin Concent 31 g/dL (31-37) Red Cell Distribution Width 19.4 % (11.5-14.5) Platelet Count 329 x10^3/uL (140-400) Neutrophils (%) (Auto) 93 % (31-73) Lymphocytes (%) (Auto) 4 % (24-48) Monocytes (%) (Auto) 2 % (0-9) Eosinophils (%) (Auto) 0 % (0-3) Basophils (%) (Auto) 0 % (0-3) Neutrophils # (Auto) 8.3 x10^3/uL (1.8-7.7) Lymphocytes # (Auto) 0.4 x10^3/uL (1.0-4.8) Monocytes # (Auto) 0.2 x10^3/uL (0.0-1.1) Eosinophils # (Auto) 0.0 x10^3/uL (0.0-0.7) Basophils # (Auto) 0.0 x10^3/uL (0.0-0.2) Segmented Neutrophils % 94 % (35-66) Band Neutrophils % 1 % (0-9) Lymphocytes % 4 % (24-48) Monocytes % 1 % (0-10) Platelet Estimate Adequate (ADEQUATE) Prothrombin Time 20.5 SEC (11.7-14.0) Prothromb Time International Ratio 1.8 (0.8-1.1) Sodium Level 137 mmol/L (136-145) Potassium Level 5.0 mmol/L (3.5-5.1) Chloride Level 99 mmol/L (98-107) Carbon Dioxide Level 32 mmol/L (21-32) Anion Gap 6 (6-14) Blood Urea Nitrogen 26 mg/dL (7-20) Creatinine 1.2 mg/dL (0.6-1.0) Estimated GFR (Cockcroft-Gault) 43.8 Glucose Level 298 mg/dL (70-99) Calcium Level 8.2 mg/dL (8.5-10.1) Glucose (Fingerstick) 329 mg/dL (70-99) 339 mg/dL (70-99) 369 mg/dL (70-99) Test 09/28/21 07:42 Glucose (Fingerstick) 312 mg/dL (70-99) Medications Active Scripts Medications Dose Route/Sig Max Daily Dose Days Date Category Dose Instructions Siltussin Sa (Guaifenesin) 100 Mg/5 Ml Liquid 20 Ml PO PRN Q6HRS PRN 09/25/21 Reported Albuterol Sulfate Neb Soln (Albuterol Sulfate) 1.25 Mg/3 Ml Vial.neb 1 Vial NEB PRN Q4HRS PRN 09/25/21 Reported Eucerin Advanced Repair (Emollient Combination No.114) 85 Gm Cream..g. 85 Gm TP DAILY 09/25/21 Reported Klor-Con M20 (Potassium Chloride) 20 Meq Tab.er.prt 1 Tab PO DAILY 30 09/25/21 Reported Lasix (Furosemide) 40 Mg Tablet 1 Tab PO NOON 5 09/25/21 Reported Lasix (Furosemide) 40 Mg Tablet 1 Tab PO DAILY 30 09/25/21 Reported Cymbalta (Duloxetine Hcl) 60 Mg Capsule.dr 1 Cap PO HS 09/25/21 Reported Albuterol Sulfate Conc Neb Soln (Albuterol Sulfate) 2.5 Mg/0.5 Ml Vial.neb 1 Vial NEB Q4HRS 7 09/25/21 Reported Latanoprost 0.005% Eye Drop (Latanoprost/Pf) 7.5 Ml Drops 1 Drop OU QHS 09/25/21 Reported Lisinopril 40 Mg Tablet 1 Tab PO DAILY 09/25/21 Reported Hydralazine Hcl 100 Mg Tablet 1 Tab PO TID 09/25/21 Reported Warfarin Sodium 1 Mg Tablet 1 Mg PO DAILY 09/25/21 Reported give with 6 mg tab Nystop (Nystatin) 60 Gm Powder 1 Bernardo TP BID 30 03/09/20 Rx Amlodipine Besylate 10 Mg Tablet 10 Mg PO DAILY 30 03/09/20 Rx Isosorbide Mononitrate Er (Isosorbide Mononitrate) 30 Mg Tab.er.24h 30 Mg PO DAILY 30 03/09/20 Rx Metoprolol Tartrate 50 Mg Tablet 50 Mg PO BID 30 03/09/20 Rx Ventolin Hfa Inhaler (Albuterol Sulfate) 18 Gm Hfa.aer.ad 2 Puff INH Q4HRS PRN 02/24/20 Reported Combivent Respimat Inhal (Ipratropium/Albuterol Sulfate) 4 Gm Aer.w.adap 2 Inh IH QID 02/24/20 Reported Loratadine 10 Mg Tablet 10 Mg PO DAILY 02/24/20 Reported Loperamide (Loperamide Hcl) 2 Mg Tablet 2 Mg PO PRN Q4HRS PRN 02/24/20 Reported Atorvastatin Calcium 20 Mg Tablet 20 Mg PO QHS 30 05/24/19 Rx Tylenol (Acetaminophen) 325 Mg Tablet 650 Mg PO PRN Q6HRS PRN 30 05/24/19 Rx Coumadin (Warfarin Sodium) 3 Mg Tablet 6 Mg PO DAILY16 30 05/24/19 Rx Wellbutrin Sr (Bupropion Hcl) 150 Mg Tablet.er 150 Mg PO DAILY 05/21/19 Reported Novolog (Insulin Aspart) 100 Unit/1 Ml Cartridge 15 Unit SQ TID 05/21/19 Reported Aspirin Ec (Aspirin) 81 Mg Tablet.dr 1 Tab PO DAILY 05/21/19 Reported Fluticasone Propionate Nasal [place] (Fluticasone Propionate) 16 Gm [place].susp 2 [place] NS DAILY 06/23/15 Reported Vitamin D2 (Ergocalciferol (Vitamin D2)) 50,000 Unit Capsule 1 Cap PO QSA 06/23/15 Reported Impression . IMPRESSION: 1. Progressive dyspnea secondary to acute on chronic diastolic heart failure. 2. Lower extremity edema secondary to above. 3. Cellulitis of the lower extremities. 4. Atrial fibrillation. 5. Ischemic cardiomyopathy. 6. Depression. 7. Type 2 diabetes. Plan . Updated 09/28 Okay to discharge 6-minute walk Follow-up with me in the office PLAN: 1. Recommend continue current IV diuresis. 2. The patient did not smoke for a prolonged period of time. I am not sure if she truly has COPD, she only tried smoking when she was a teenager. 3. Continue steroids and antibiotics for lower extremity cellulitis. Could possibly be discharged in the next 24-48 hours. MOIRA GEORGE MD Sep 28, 2021 08:16
[2021-09-28 08:49] LABS: BASO % 0 % (0-3); EOS % 0 % (0-3); HEMATOCRIT 40.9 % (36.0-47.0); HEMOGLOBIN 12.7 g/dL (12.0-15.5); LYMPH # 0.3 x10^3/uL (1.0-4.8); LYMPH % 3 % (24-48); MEAN CORPUSCULAR HEMOGLOBIN 24 pg (25-35); MEAN CORPUSCULAR HGB CONC 31 g/dL (31-37); MEAN CORPUSCULAR VOLUME 76 fL (79-100); MONO # 0.2 x10^3/uL (0.0-1.1); MONO % 2 % (0-9); NEUT # 9.8 x10^3/uL (1.8-7.7); NEUT % 95 % (31-73); PLATELET COUNT 355 x10^3/uL (140-400); RED BLOOD COUNT 5.38 x10^6/uL (3.50-5.40); RED CELL DISTRIBUTION WIDTH 19.2 % (11.5-14.5); WHITE BLOOD COUNT 10.3 x10^3/uL (4.0-11.0)
[2021-09-28] MEDS: FLUTICASONE 50MCG/NASAL SPRAY 16GM BOTTLE. NS SCH (09:00)
[2021-09-28 09:11] LABS: PROTHROMBIN TIME PATIENT 21.3 SEC (11.7-14.0)
[2021-09-28] MEDS: methylPREDNISolone SOD SUCC PF 40 MG/ML VIAL. IV SCH (09:41)
[2021-09-28] MEDS: FUROSEMIDE 40 MG/4 ML VIAL. IVP SCH (09:42)
[2021-09-28] MEDS: ASPIRIN ENTERIC COATED 81 MG TABLET.DR. PO SCH (09:43)
[2021-09-28] MEDS: METOPROLOL TART IMMED RELEASE 50 MG TABLET. PO SCH (09:43)
[2021-09-28] MEDS: ISOSORBIDE MONONITRATE ER 30 MG TAB.ER.24H PO SCH (09:44)
[2021-09-28] MEDS: buPROPion SR 150 MG TABLET.SA PO SCH (09:44)
[2021-09-28] MEDS: LACTOBACILLUS RHAMNOSUS GG 1 CAPSULE. PO SCH (09:44)
[2021-09-28] MEDS: CETIRIZINE HCL 10 MG TABLET. PO SCH (09:45)
[2021-09-28] MEDS: INSULIN LISPRO 300 UNITS/3 ML VIAL. SQ SCH ×3 (09:52→17:58)
[2021-09-28 11:13] VITALS: BP 152/78
[2021-09-28] MEDS ORDERED: METH4TAB2 PO (12:27)
[2021-09-28 15:07] VITALS: BP 132/81
[2021-09-28 15:42] VITALS: BP 132/81
[2021-09-28] MEDS: WARFARIN 3 MG TABLET. PO SCH (15:47)
[2021-09-28] MEDS: WARFARIN 1 MG TABLET. PO SCH (15:48)
[2021-09-28] MEDS: cefTRIAXone IV Push 1 GM VIAL. IVP SCH (15:48)
--- NOTE | 2021-09-28 16:13 | NUR ---
SW following. Discussed with RN, pt completed 6 minute walk, needing 3L oxygen with activity, 1L at rest. Oxygen arranged with [employer], tank provided to RN. Transportation arranged with [employer] for [id number]. RN notified.
--- NOTE | 2021-09-28 16:20 | DS ---
DATE OF DISCHARGE: 09/28/2021 ADMISSION DIAGNOSIS: Chronic obstructive pulmonary disease exacerbation. DISCHARGE DIAGNOSES: Resolving chronic obstructive pulmonary disease exacerbation, history of heart failure, polypharmacy, depression, anxiety, hyperlipidemia, chronic edema, chronic obstructive pulmonary disease, diabetes, glaucoma, hypertension, constipation, chronic anticoagulation, arrhythmias. HOSPITAL COURSE: The patient is a pleasant, elderly female who presented with respiratory failure was noted to have a COPD exacerbation with some subtle heart failure as well. She was admitted. We gave her IV antibiotics, breathing treatments, oxygen, steroids and Lasix. I consulted Pulmonary Medicine. Today, I saw and examined her. She is at her baseline and wants to go back to her facility. We plan to discharge to [facility]. DISPOSITION: [facility]. ACTIVITY: As tolerated. DIET: Low sodium. DISCHARGE MEDICATIONS: Please see the MRAD. Medrol Dosepak, p.r.n. Tylenol, albuterol, amlodipine 10 a day, aspirin 81 a day, atorvastatin 20 a day, bupropion 150 daily, Cymbalta 60 a day, vitamin D, Flonase, Lasix 40 a day, guaifenesin, hydralazine 100 t.i.d., insulin 15 units t.i.d. with meals of NovoLog, Imdur 30 a day, Combivent, Lantrosop eye drops, lisinopril 40 a day, loperamide p.r.n., loratadine 10 a day, metoprolol 50 b.i.d., nystatin, potassium chloride 20 a day, Coumadin 6 a day. TOTAL TIME: 34 minutes. GLADYS/SANDY DR: ALEX/janett TID: [id number]
--- NOTE | 2021-09-28 18:56 | NUR ---
patient discharged home with O2 tank. RN called [employer]2 company ahead of time as patient was concerned she would not know how to do it or would not be able to reach anyone. IV removed intact. Patient stable upon dc.
== END 2021-09-28 18:58 | disposition home or self-care (01) | DRG 291 ==
LOC: ER 12:34 → ED HOLD 15:35 → 5 SOUTH 16:49
PROVIDERS: ADMIT Internal Medicine; ATTEND Internal Medicine
DX: I13.0 Hypertensive heart and chronic kidney disease with heart failure and stage 1 through stage 4 chronic kidney disease, or unspecified chronic kidney disease (principal); I50.33 Acute on chronic diastolic (congestive) heart failure; N17.0 Acute kidney failure with tubular necrosis; J96.01 Acute respiratory failure with hypoxia; J44.1 Chronic obstructive pulmonary disease with (acute) exacerbation; L03.115 Cellulitis of right lower limb; L03.116 Cellulitis of left lower limb; Z68.43 Body mass index [BMI] 50.0-59.9, adult; E11.22 Type 2 diabetes mellitus with diabetic chronic kidney disease; E66.01 Morbid (severe) obesity due to excess calories; E78.00 Pure hypercholesterolemia, unspecified; E78.5 Hyperlipidemia, unspecified; F03.90 Unspecified dementia, unspecified severity, without behavioral disturbance, psychotic disturbance, mood disturbance, and anxiety; F12.90 Cannabis use, unspecified, uncomplicated; F32.A Depression, unspecified; F41.9 Anxiety disorder, unspecified; I25.5 Ischemic cardiomyopathy; I48.91 Unspecified atrial fibrillation; N18.9 Chronic kidney disease, unspecified; R32 Unspecified urinary incontinence; Z20.822 Contact with and (suspected) exposure to COVID-19; Z79.01 Long term (current) use of anticoagulants; Z86.73 Personal history of transient ischemic attack (TIA), and cerebral infarction without residual deficits; Z83.3 Family history of diabetes mellitus; Z90.49 Acquired absence of other specified parts of digestive tract; Z90.710 Acquired absence of both cervix and uterus; Z98.51 Tubal ligation status; Z88.8 Allergy status to other drugs, medicaments and biological substances
CPT/HCPCS: 36415; 71045; 80048; 80053; 82553; 82962; 83605; 83735; 83880; 84484; 85007; 85025; 85610; 87426; 87804; 93005; 94618; 94640; 94760; 96374; J0696; J1100; J1815; J1940; J2920; U0003; U0005; 97116-GP; 97535-GO; 99285-25; G0378

== ENCOUNTER 2022-02-09 19:36 | Emergency (ER) | payer MEDICARE, MEDICAID ==
[~2022-02-09] VITALS: Ht 162.6 cm; Wt 147.5 kg
[~2022-02-09 19:36] MED LIST changes: +ALBU1.25 NEB; +EMOL85CR TP; +GUAI-44 PO; +HYDR100T24 PO; +LATA7.5D OU; +METH4TAB2 PO; +POTA-121 PO
[2022-02-09] MEDS ORDERED: ACETAMINOPHEN 325 MG TABLET. PO ONE (20:00)
[2022-02-09 20:17] LABS: BASO # 0.1 x10^3/uL (0.0-0.2); BASO % 1 % (0-3); EOS # 0.2 x10^3/uL (0.0-0.7); EOS % 2 % (0-3); HEMATOCRIT 36.8 % (36.0-47.0); HEMOGLOBIN 11.5 g/dL (12.0-15.5); LYMPH % 10 % (24-48); MEAN CORPUSCULAR HEMOGLOBIN 24 pg (25-35); MEAN CORPUSCULAR HGB CONC 31 g/dL (31-37); MEAN CORPUSCULAR VOLUME 77 fL (79-100); MONO % 10 % (0-9); NEUT # 7.8 x10^3/uL (1.8-7.7); NEUT % 78 % (31-73); PLATELET COUNT 258 x10^3/uL (140-400); RED BLOOD COUNT 4.78 x10^6/uL (3.50-5.40); RED CELL DISTRIBUTION WIDTH 19.6 % (11.5-14.5); WHITE BLOOD COUNT 10.1 x10^3/uL (4.0-11.0)
[2022-02-09 20:32] LABS: CALCIUM 8.6 mg/dL (8.5-10.1); CREATININE 1.5 mg/dL (0.6-1.0); GFR 33.9
[2022-02-09 20:34] LABS: BACTERIA,URINE FEW /HPF (0-FEW); HYALINE CASTS, URINE OCCASIONAL /HPF; RBC,URINE 0 /HPF (0-2); WBC,URINE 0 /HPF (0-4)
[2022-02-09 20:38] LABS: ALBUMIN 3.3 g/dL (3.4-5.0); ALBUMIN/GLOBULIN RATIO 0.9 (1.0-1.7); TOTAL BILIRUBIN 0.5 mg/dL (0.2-1.0); TOTAL PROTEIN 6.8 g/dL (6.4-8.2)
--- NOTE | 2022-02-09 22:33 | RAD ---
Exam: Femur 2 views INDICATION: Pain TECHNIQUE: Frontal and lateral views of the right femur Comparisons: None FINDINGS: Bone mineralization is normal. No displaced fracture identified. Soft tissues are unremarkable. Moder ate tricompartmental osteoarthritic change at the right knee. IMPRESSION: No acute osseous abnormality identified Electronically signed by: Bairon Haile MD (02/09/2022 10:30 PM) [facility]
[2022-02-10 00:09] VITALS: BP 136/58
[2022-02-10] MEDS ORDERED: ACET325T9 PO (00:20)
[2022-02-10] MEDS ORDERED: DICL20GE TP (00:20)
--- NOTE | 2022-02-10 00:20 | PHYS DOC ---
Past Medical History Past Medical History: A-Fib, Anxiety, CHF, COPD, Diabetes-Type II, High Cholesterol, Hypertension Past Surgical History: Appendectomy, Cholecystectomy, , Hysterectomy, Tubal ligation, Other Additional Past Surgical Histo: bladder Smoking Status: Never Smoker Alcohol Use: None Drug Use: None General Adult EDM: Chief Complaint: LOWER EXT PAIN HPI: HPI: Patient is a 76 year old female presents to the ER with right-sided lower extremity pain. Patient states lives at an assisted living home and states that she started noticing pain with weightbearing and walking. Patient points to the mid anterior right thigh. Denies any numbness or tingling. Denies any injury to the area. Review of Systems: Review of Systems: Constitutional: Denies fever or chills. [] Eyes: Denies change in visual acuity. [] HENT: Denies nasal congestion or sore throat. [] Respiratory: Denies cough or shortness of breath. [] Cardiovascular: Denies chest pain or edema. [] GI: Denies abdominal pain, nausea, vomiting, bloody stools or diarrhea. [] : Denies dysuria. [] Musculoskeletal: Right mid thigh pain denies back pain or joint pain. [] Integument: Denies rash. [] Neurologic: Denies headache, focal weakness or sensory changes. [] Endocrine: Denies polyuria or polydipsia. [] Lymphatic: Denies swollen glands. [] Psychiatric: Denies depression or anxiety. [] Heart Score: C/O Chest Pain: No Risk Factors: Risk Factors: DM, Current or recent (<one month) smoker, HTN, HLP, family history of CAD, obesity. Risk Scores: Score 0 - 3: 2.5% MACE over next 6 weeks - Discharge Home Score 4 - 6: 20.3% MACE over next 6 weeks - Admit for Clinical Observation Score 7 - 10: 72.7% MACE over next 6 weeks - Early Invasive Strategies Current Medications: Current Medications Medications (Trade) Dose Ordered Sig/Shikha Start Time Stop Time Status Last Admin Dose Admin Acetaminophen (Tylenol) 650 mg 1X ONCE 02/09/22 20:00 02/09/22 20:01 DC 02/09/22 20:29 650 MG Allergies: Allergies: Allergies Coded Allergies Type Severity Reaction Last Updated Verified fexofenadine Allergy Intermediate Palpitations 10/04/15 Yes I S O L A T I O N *CONTACT* Allergy Unknown 10/26/20 Yes Physical Exam: PE: Constitutional: Well developed, well nourished, no acute distress, non-toxic appearance. [] HENT: Normocephalic, atraumatic, bilateral external ears normal, oropharynx moist, no oral exudates, nose normal. [] Eyes: PERRLA, EOMI, conjunctiva normal, no discharge. [] Neck: Normal range of motion, no tenderness, supple, no stridor. [] Cardiovascular:Heart rate regular rhythm, no murmur [] Lungs & Thorax: Bilateral breath sounds clear to auscultation [] Abdomen: Bowel sounds normal, soft, no tenderness, no masses, no pulsatile masses. [] Skin: Warm, dry, no erythema, no rash. [] Back: No tenderness, no CVA tenderness. [] Extremities: No tenderness, no cyanosis, no clubbing, ROM intact, no edema. [] Neurologic: Alert and oriented X 3, normal motor function, normal sensory function, no focal deficits noted. [] Psychologic: Affect normal, judgement normal, mood normal. [] Current Patient Data: Labs: Laboratory Tests Test 02/09/22 20:05 02/09/22 20:10 Urine Collection Type Unknown Urine Color (Auto) Light yellow Urine Turbidity Clear Urine pH (Auto) 6.0 (<5.0-8.0) Urine Specific [place] 1.016 (1.000-1.030) Urine Protein (Auto) Negative mg/dL (Negative) Urine Glucose (Auto)(UA) Negative mg/dL (Negative) Urine Ketones (Auto) Negative mg/dL (Negative) Urine Blood (Auto) Negative (Negative) Urine Nitrite (Auto) Negative (Negative) Urine Bilirubin (Auto) Negative (Negative) Urine Urobilinogen (Auto) 3 mg/dL (Normal) Urine Leukocyte Esterase (Auto) Negative (Negative) Urine RBC 0 /HPF (0-2) Urine WBC 0 /HPF (0-4) Urine Squamous Epithelial Cells Mod /LPF Urine Bacteria Few /HPF (0-FEW) Urine Hyaline Casts Occasional /HPF Urine Mucus Slight /LPF White Blood Count 10.1 x10^3/uL (4.0-11.0) Red Blood Count 4.78 x10^6/uL (3.50-5.40) Hemoglobin 11.5 g/dL (12.0-15.5) L Hematocrit 36.8 % (36.0-47.0) Mean Corpuscular Volume 77 fL (79-100) L Mean Corpuscular Hemoglobin 24 pg (25-35) L Mean Corpuscular Hemoglobin Concent 31 g/dL (31-37) Red Cell Distribution Width 19.6 % (11.5-14.5) H Platelet Count 258 x10^3/uL (140-400) Neutrophils (%) (Auto) 78 % (31-73) H Lymphocytes (%) (Auto) 10 % (24-48) L Monocytes (%) (Auto) 10 % (0-9) H Eosinophils (%) (Auto) 2 % (0-3) Basophils (%) (Auto) 1 % (0-3) Neutrophils # (Auto) 7.8 x10^3/uL (1.8-7.7) H Lymphocytes # (Auto) 1.0 x10^3/uL (1.0-4.8) Monocytes # (Auto) 1.0 x10^3/uL (0.0-1.1) Eosinophils # (Auto) 0.2 x10^3/uL (0.0-0.7) Basophils # (Auto) 0.1 x10^3/uL (0.0-0.2) Sodium Level 140 mmol/L (136-145) Potassium Level 4.0 mmol/L (3.5-5.1) Chloride Level 103 mmol/L (98-107) Carbon Dioxide Level 31 mmol/L (21-32) Anion Gap 6 (6-14) Blood Urea Nitrogen 25 mg/dL (7-20) H Creatinine 1.5 mg/dL (0.6-1.0) H Estimated GFR (Cockcroft-Gault) 33.9 BUN/Creatinine Ratio 17 (6-20) Glucose Level 116 mg/dL (70-99) H Calcium Level 8.6 mg/dL (8.5-10.1) Total Bilirubin 0.5 mg/dL (0.2-1.0) Aspartate Amino Transferase (AST) 24 U/L (15-37) Alanine Aminotransferase (ALT) 13 U/L (14-59) L Alkaline Phosphatase 98 U/L (46-116) Creatine Kinase 87 U/L (26-192) Total Protein 6.8 g/dL (6.4-8.2) Albumin 3.3 g/dL (3.4-5.0) L Albumin/Globulin Ratio 0.9 (1.0-1.7) L Laboratory Tests 02/09/22 20:10 Laboratory Tests 02/09/22 20:10 Vital Signs: Vital Signs Date Time Temp Pulse Resp B/P (MAP) Pulse Ox O2 Delivery O2 Flow Rate FiO2 02/09/22 19:40 98.1 88 17 154/77 (102) 99 Nasal Cannula 2.0 98.1 EKG: EKG: [] Radiology/Procedures: Radiology/Procedures: []PATIENT: MICHAELA COOPER SACCOUNT: [id number]#: [id number] : 1945 LOCATION: ER AGE: 76 SEX: F EXAM STATUS: REG ER ORD. PHYSICIAN: ROVERTO TORRES DO REASON: pain PROCEDURE: FEMUR RIGHT 2 VIEW Exam: Femur 2 views INDICATION: Pain TECHNIQUE: Frontal and lateral views of the right femur Comparisons: None FINDINGS: Bone mineralization is normal. No displaced fracture identified. Soft tissues are unremarkable. Moderate tricompartmental osteoarthritic change at the right knee. IMPRESSION: No acute osseous abnormality identified Electronically signed by: Bairon Haile MD (02/09/2022 10:30 PM) [facility] Course & Med Decision Making: Course & Med Decision Making Pertinent Labs and Imaging studies reviewed. (See chart for details) [] Patient's x-ray was negative. Patient's blood work did not display any signs of rhabdo. Patient appears to be in no distress at this time patient will be given Voltaren gel and Tylenol for prescription follow-up with orthopedic in the outpatient setting recommend an MRI. Questions and concerns were addressed Nidhi Disclaimer: Nidhi Disclaimer: This electronic medical record was generated, in whole or in part, using a voice recognition dictation system. Departure Departure Impression: Primary Impression: Leg pain Disposition: HOME / SELF CARE / HOMELESS Condition: STABLE Referrals: Evelin RUIZ MD (PCP) MADDIE CHILDERS Jr. DO Patient Instructions: Leg Cramps Scripts Diclofenac Sodium (Voltaren Arthritis Pain) 20 Gm Gel..gram. 20 GM TP 2-3XD for 7 Days, #1 EACH Prov: ROVERTO TORRES DO 02/10/22 Acetaminophen (TYLENOL) 325 Mg Tablet 325 MG PO Q4-6HRS PRN for PAIN, #20 TAB Prov: ROVERTO TORRES DO 02/10/22 ROVERTO TORRES DO Feb 10, 2022 00:20
== END 2022-02-10 00:51 | disposition home or self-care (01) ==
LOC: ER 19:36
DX: M79.604 Pain in right leg (principal); I48.91 Unspecified atrial fibrillation; E78.00 Pure hypercholesterolemia, unspecified; J44.9 Chronic obstructive pulmonary disease, unspecified; I11.0 Hypertensive heart disease with heart failure; I50.9 Heart failure, unspecified; E11.9 Type 2 diabetes mellitus without complications; Z90.89 Acquired absence of other organs; Z90.710 Acquired absence of both cervix and uterus; Z90.49 Acquired absence of other specified parts of digestive tract; Z98.51 Tubal ligation status; Z91.041 Radiographic dye allergy status; Z88.8 Allergy status to other drugs, medicaments and biological substances
CPT/HCPCS: 36415; 73552; 80053; 81001; 82550; 85025; 99285-25